=== PATIENT | female | born 1965 | race Caucasian/White ===

== ENCOUNTER 2017-07-25 15:35 | Outpatient (CLI) | payer MEDICARE, MEDICAID, SELFPAY ==
[2017-07-25 16:05] VITALS: BP 148/67; PULSE 64; RESP 18; TEMP 36.4; O2SAT 96
[2017-07-25 16:08] VITALS: BMI 28.7
[2017-07-25 16:35] VITALS: BP 138/62; PULSE 65; RESP 18; TEMP 36.4; O2SAT 95
== END 2017-07-25 16:40 | disposition home or self-care (01) ==
LOC: INF 15:38
PROVIDERS: PCP Family Medicine; Visit Provider Family Medicine
DX: R51 Headache (principal)
CPT/HCPCS: 96372

== ENCOUNTER 2017-08-15 20:25 | Emergency (ER) | payer MEDICARE, MEDICAID, SELFPAY ==
[2017-08-15 20:28] VITALS: BP 160/92; PULSE 84; RESP 16; TEMP 36.8; O2SAT 98; BMI 27.8
--- NOTE | 2017-08-15 20:47 | HMH.EDHA ---
ED Disposition Clinical Impression: Migraine Qualifiers: Migraine type: with aura Status migrainosus presence: without status migrainosus Intractability: not intractable Qualified Code(s): G43.109 - Migraine with aura, not intractable, without status migrainosus Disposition: Home, Self-Care Condition on Discharge: Good Instructions: Migraine -- Adult Additional Instructions: call pcp in am Referrals: Vasu Gutierres MD [Primary Care Provider] - - Critical Care Critical Care Time: No Attestation: On 08/15/17, the high probability of a clinically significant, sudden or life threatening deterioration of the following system(s) required my full and direct attention, intervention and personal management. The time I documented below is in addition to time spent performing reported procedures but includes the following listed in this critical care notation. Medical Decision Making - Medical Records Medical records reviewed: Yes: I reviewed the patient's medical records. Vital Signs: 08/15/17 20:28 Temperature 98.3 F Temperature Source Oral Pulse Rate [Left Brachial] 84 Respiratory Rate 16 Blood Pressure [Left Arm] 160/92 Blood Pressure Mean [Left Arm] 114 Blood Pressure Source [Left Arm] Automatic Cuff Blood Pressure Position [Left Arm] Sitting 02 Sat by Pulse Oximetry 98 Oxygen Delivery Method Room Air - Corey Inquiry Pt receiving controlled substance: No Headache HPI - General Chief Complaint: Headache Stated Complaint: Migraine Time Seen by Provider: 08/15/17 20:47 Mode of Arrival: Ambulatory Source of Information: Patient, Medical Record Limitations: No Limitations Description of Symptoms (Recalled from ER Triage Doc. 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, TOOK TYLENOL AND MOTRIN [employer] - History of Present Illness HPI Narrative: pt with acute shen similiar to prev shen - no focal changes Complaint: migraine Onset (ago): hour(s) Onset description: gradual Location: diffuse Severity: similar to previous episodes Quality: similar to previous headaches - Related Data Home Medications Medication Instructions Recorded Confirmed ALPRAZolam [Alprazolam Xr 0.5mg 0.5 mg PO TIDP PRN 07/25/17 07/25/17 Tab] ARIPiprazole [Aripiprazole] 5 mg PO HS 07/25/17 07/25/17 Albuterol Sulfate [Proair Hfa 2 puffs IH Q6HP PRN 07/25/17 07/25/17 90mcg/puff Inh] Amlodipine Besylate [Amlodipine 10 mg PO DAILY 07/25/17 07/25/17 10mg Tab] Atenolol [Atenolol 100mg Tab] 100 mg PO DAILY 07/25/17 07/25/17 Atorvastatin Calcium [Atorvastatin 20 mg PO HS 07/25/17 07/25/17 20mg Tab] Cholecalciferol (Vitamin D3) 5,000 unit PO DAILY 07/25/17 07/25/17 [Vitamin D3] Desvenlafaxine Succinate [Pristiq] 50 mg PO HS 07/25/17 07/25/17 Furosemide [Furosemide 20mg Tab] 20 mg PO DAILYP PRN 07/25/17 07/25/17 Hydrocod/Acet 5/325 mg [[place] 1 tab PO Q8HP PRN 07/25/17 07/25/17 5/325mg tablet] Insulin NPH Hum/Reg Insulin Hm 50 units SQ BID 07/25/17 07/25/17 [Humulin 70/30 Kwikpen] Linaclotide [Linzess] 72 mcg PO DAILY 07/25/17 07/25/17 Linagliptin [Tradjenta] 5 mg PO DAILY 07/25/17 07/25/17 Lisinopril [Lisinopril 10mg Tab] 10 mg PO DAILY 07/25/17 07/25/17 Metformin HCl [Metformin 500mg 1,000 mg PO DAILY 07/25/17 07/25/17 Tablet] Pregabalin [Lyrica 100mg Cap] 100 mg PO TID 07/25/17 07/25/17 Promethazine HCl [Phenergan 25mg 25 mg PO Q6HP PRN 07/25/17 07/25/17 tab] Tizanidine HCl [Zanaflex] 4 mg PO BIDP PRN 07/25/17 07/25/17 Topiramate [Topamax 25mg tablet] 25 mg PO HS 07/25/17 07/25/17 Trazodone HCl 100 mg PO HS 07/25/17 07/25/17 Allergies Allergy/AdvReac Type Severity Reaction Status Date / Time cephalexin [CEPHALEXIN] Allergy Intermediate I-ITCHING Verified 07/25/17 17:22 levofloxacin [From LEVAQUIN] Allergy Intermediate I-RASH Verified 07/25/17 17:22 Penicillins [PENICILLINS] Allergy Intermediate I-RASH, Verified 07/25/17 17:24 VOMITING Quinolones [QUINOLONES] Allergy Intermediate I-RASH Verified
--- NOTE | 2017-08-15 20:51 | ED_ITS ---
ED Disposition Clinical Impression: Migraine Qualifiers: Migraine type: with aura Status migrainosus presence: without status migrainosus Intractability: not intractable Qualified Code(s): G43.109 - Migraine with aura, not intractable, without status migrainosus Disposition: Home, Self-Care Condition on Discharge: Good Instructions: Migraine -- Adult Additional Instructions: call pcp in am Referrals: Vasu Gutierres MD [Primary Care Provider] - - Critical Care Critical Care Time: No Attestation: On 08/15/17, the high probability of a clinically significant, sudden or life threatening deterioration of the following system(s) required my full and direct attention, intervention and personal management. The time I documented below is in addition to time spent performing reported procedures but includes the following listed in this critical care notation. Medical Decision Making - Medical Records Medical records reviewed: Yes: I reviewed the patient's medical records. Vital Signs: 08/15/17 20:28 Temperature 98.3 F Temperature Source Oral Pulse Rate [Left Brachial] 84 Respiratory Rate 16 Blood Pressure [Left Arm] 160/92 Blood Pressure Mean [Left Arm] 114 Blood Pressure Source [Left Arm] Automatic Cuff Blood Pressure Position [Left Arm] Sitting 02 Sat by Pulse Oximetry 98 Oxygen Delivery Method Room Air - Corey Inquiry Pt receiving controlled substance: No Headache HPI - General Chief Complaint: Headache Stated Complaint: Migraine Time Seen by Provider: 08/15/17 20:47 Mode of Arrival: Ambulatory Source of Information: Patient, Medical Record Limitations: No Limitations Description of Symptoms (Recalled from ER Triage Doc. 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 HPI Narrative: pt with acute shen similiar to prev shen - no focal changes Complaint: migraine Onset (ago): hour(s) Onset description: gradual Location: diffuse Severity: similar to previous episodes Quality: similar to previous headaches - Related Data Home Medications Medication Instructions Recorded Confirmed ALPRAZolam [Alprazolam Xr 0.5mg 0.5 mg PO TIDP PRN 07/25/17 07/25/17 Tab] ARIPiprazole [Aripiprazole] 5 mg PO HS 07/25/17 07/25/17 Albuterol Sulfate [Proair Hfa 2 puffs IH Q6HP PRN 07/25/17 07/25/17 90mcg/puff Inh] Amlodipine Besylate [Amlodipine 10 mg PO DAILY 07/25/17 07/25/17 10mg Tab] Atenolol [Atenolol 100mg Tab] 100 mg PO DAILY 07/25/17 07/25/17 Atorvastatin Calcium [Atorvastatin 20 mg PO HS 07/25/17 07/25/17 20mg Tab] Cholecalciferol (Vitamin D3) 5,000 unit PO DAILY 07/25/17 07/25/17 [Vitamin D3] Desvenlafaxine Succinate [Pristiq] 50 mg PO HS 07/25/17 07/25/17 Furosemide [Furosemide 20mg Tab] 20 mg PO DAILYP PRN 07/25/17 07/25/17 Hydrocod/Acet 5/325 mg [[place] 1 tab PO Q8HP PRN 07/25/17 07/25/17 5/325mg tablet] Insulin NPH Hum/Reg Insulin Hm 50 units SQ BID 07/25/17 07/25/17 [Humulin 70/30 Kwikpen] Linaclotide [Linzess] 72 mcg PO DAILY 07/25/17 07/25/17 Linagliptin [Tradjenta] 5 mg PO DAILY 07/25/17 07/25/17 Lisinopril [Lisinopril 10mg Tab] 10 mg PO DAILY 07/25/17 07/25/17 Metformin HCl [Metformin 500mg 1,000 mg PO DAILY 07/25/17 07/25/17 Tablet] Pregabalin [Lyrica 100mg Cap] 1
== END 2017-08-15 21:03 | disposition home or self-care (01) ==
PROVIDERS: Emergency Provider Emergency Medicine; Family Provider Family Medicine; PCP Family Medicine
DX: G43.109 Migraine with aura, not intractable, without status migrainosus (principal); I10 Essential (primary) hypertension; E78.5 Hyperlipidemia, unspecified; Z79.899 Other long term (current) drug therapy; Z88.0 Allergy status to penicillin; Z88.8 Allergy status to other drugs, medicaments and biological substances; Z88.2 Allergy status to sulfonamides
CPT/HCPCS: 96372; 99282

== ENCOUNTER 2017-08-22 15:38 | Outpatient (CLI) | payer MEDICARE, MEDICAID, SELFPAY ==
[2017-08-22 16:15] VITALS: BP 134/81; PULSE 68; RESP 20; TEMP 36.4; O2SAT 96
== END 2017-08-22 16:45 | disposition home or self-care (01) ==
LOC: INF 15:39
PROVIDERS: PCP Family Medicine; Visit Provider Family Medicine
DX: G43.C1 Periodic headache syndromes in child or adult, intractable (principal)
CPT/HCPCS: 96372; J0595

== ENCOUNTER 2017-09-11 14:13 | Outpatient (CLI) | payer MEDICARE, MEDICAID, SELFPAY ==
[2017-09-11 14:26] VITALS: RESP 18
[2017-09-11 14:27] VITALS: BP 137/86; PULSE 74; RESP 18; O2SAT 97
[2017-09-11 14:50] VITALS: BP 119/72; PULSE 78; RESP 18; O2SAT 97
== END 2017-09-11 14:50 | disposition home or self-care (01) ==
LOC: INF 14:14
PROVIDERS: PCP Family Medicine; Visit Provider Family Medicine
DX: G43.C1 Periodic headache syndromes in child or adult, intractable (principal)
CPT/HCPCS: 96372; J0595

== ENCOUNTER → 2017-09-18 12:11 | Outpatient (CLI) | payer MEDICARE, MEDICAID, SELFPAY ==
--- NOTE | 2017-09-18 | CA_ITS ---
PROCEDURE: 2-D M-mode and color Doppler study INDICATIONS FOR THE TEST: Chest pain COPD Heart Murmur Tobacco Smoking Palpitationsx Fatiguex Syncope Edemax HypertensionxDiabetes Mellitusx Rheumatic Fever [place] ObesityxHyperlipidemiax Family History HD Additional History PATIENT INFORMATION HEIGHT: 5'6'' WEIGHT: 185 GENDER: Female B/P: 124/77 2-D/M-MODE INTERPRETATION: 2-D MEASUREMENTS OBSERVED VALUES IN CMS Right Ventricular Dimension (RVDd) 2.2 Interventricular Septum (Thickness)(IVsd) 1.2 Left Ventricular Internal Dimensions(LVIDd) 4.3 Left Ventricular Posterior Wall (Thickness)(LVPWd) 1.3 Aortic Root 3.1 Aortic Cusp Separation 1.9 Left Atrial Dimensions (LAD) 3.8 2D 1. Left atrium is mildly enlarged, left ventricle is normal size, there is mild concentric left ventricular hypertrophy, visually estimated ejection fraction 55% with no obvious regional wall motion abnormality. 2. The right atrium and right ventricle are relatively normal size and function. 3. The aortic valve is minimally thickened and fibrosed. 4. The mitral and tricuspid valve leaflets are minimally thickened. 5. The pulmonic valve is poorly visualized. 6. No significant pericardial effusion noted. DOPPLER INTERROGATION: Doppler interrogation of the aortic, mitral and tricuspid valvular presence of mild aortic, mild mitral and tricuspid regurgitation, tricuspid regurgitant jet velocity insufficient for calculation of the right ventricular systolic pressure, grade 1 diastolic dysfunction seen with tissue Doppler evidence of raised left atrial pressure. CONCLUSION: 1. Mildly enlarged left atrium, normal left ventricular size, mild concentric left ventricular hypertrophy, visually estimated ejection fraction 55% with no obvious regional wall motion abnormality, grade 1 diastolic dysfunction seen with tissue Doppler evidence of raised left atrial pressure. 2. Mild aortic, mild mitral and tricuspid regurgitation 3. No significant pericardial effusion
--- NOTE | 2017-09-18 | CI_ITS ---
Cerebrovascular Exam Indications: 781.94 Facial weakness. 434.91 Cerebral artery occlusion unspecified with cerebral infarction. IMPRESSIONS 1. The bilateral vertebral arteries are patent with normal antegrade flow. 2. The bilateral subclavian arteries reveal no evidence of significant stenosis. 3. Study suggests less than 20% stenosis involving the right internal carotid artery and the left internal carotid artery. 4. Incidental findings: There are bilateral complexthyroid nodules 1.6 X 1.4 cmon the right and 1.4 X 1.3 cm on the left side. Suggest dedicated thyroid ultrasound Carotid duplex study. Complete study and Doppler flow study including spectral analysis, color and nieves scale imaging. Height: Height: 167.6cm. Height: 66in. Weight: Weight: 83.9kg. Weight: 184.6lb. Body mass index: BMI: 29.9kg/m^2. Body surface area: BSA: 2m^2. Location: Vascular laboratory. Patient status: Outpatient. Tables: Arterial flow: + +---------+---------+ Location V sys V ed + +---------+---------+ Right CCA - proximal -73.3cm/s -24.8cm/s + +---------+---------+ Right CCA - distal -83.3cm/s -34.2cm/s + +---------+---------+ Right ECA -109cm/s -27.6cm/s + +---------+---------+ Right ICA - proximal -78.3cm/s -36.4cm/s + +---------+---------+ Right ICA - mid -104cm/s -51.3cm/s + +---------+---------+ Right ICA - distal -80cm/s -35.8cm/s + +---------+---------+ Right vertebral 59.7cm/s 25.1cm/s + +---------+---------+ Left CCA - proximal 80cm/s 25.4cm/s + +---------+---------+ Left CCA - distal -77.2cm/s -32.5cm/s + +---------+---------+ Left ECA -190cm/s -44.2cm/s + +---------+---------+ Left ICA - proximal -57.3cm/s -27cm/s + +---------+---------+ Left ICA - mid -110cm/s -46.3cm/s + +---------+---------+ Left ICA - distal -48.7cm/s -21.6cm/s + +---------+---------+ Left vertebral 40.1cm/s 14.6cm/s + +---------+---------+ (Report amended ) Electronically signed by: Tom Beaulieu [id number]
[2017-09-18 15:13] LABS: Alanine Aminotransferase 38 U/L (12-78); Albumin Level 3.7 gm/dL (3.4-5.0); Albumin/Globulin Ratio 1.1 (1.1-1.8); Alkaline Phosphatase 156 U/L (46-116); Anion Gap 16.6 mEq/L (5-15); Aspartate Amino Transferase 12 U/L (15-37); Bilirubin,Total 0.4 mg/dL (0.2-1.0); Blood Urea Nitrogen 18 mg/dL (7-18); Calcium 9.3 mg/dL (8.5-10.1); Carbon Dioxide 24 mmol/L (21.0-32.0); Chloride 102 mmol/L (98-107); Chol/HDL Ratio 2.9 (1-3.5); Cholesterol 161 mg/dL (140-200); Creatinine,Serum 1.03 mg/dL (0.55-1.02); Estimated Glomerular Filt Rate 56 ml/min (>60); GFR (African American) 68 ML/MIN (>60); Globulin 3.5 gm/dl (1.3-3.2); Glucose 283 mg/dL (74-106); HDL Cholesterol 56 mg/dL (29-89); LDL Cholesterol 69 mg/dL (0-130); Potassium 4.6 mmoL/L (3.5-5.1); Sodium 138 mmol/L (136-145); Thyroid Stimulating Hormone 0.94 uIU/ml (0.358-3.740); Total Protein,Serum 7.2 gm/dL (6.4-8.2); Triglycerides 178 mg/dL (30-200); VLDL Cholesterol 36 mg/dL (0-40)
[2017-09-18 16:47] LABS: Hemoglobin A1C 11.5 % (0.0-7.0)
[2017-09-19 11:39] LABS: Vitamin B12 411 pg/mL (232-1245)
== END ==
PROVIDERS: Family Provider Family Medicine; PCP Family Medicine; Visit Provider Specialist
DX: E11.8 Type 2 diabetes mellitus with unspecified complications (principal); R51 Headache; I63.9 Cerebral infarction, unspecified; R53.1 Weakness; R25.1 Tremor, unspecified; R20.0 Anesthesia of skin; R47.9 Unspecified speech disturbances; R00.2 Palpitations; R29.810 Facial weakness
CPT/HCPCS: 36415; 80053; 80061; 82607; 82746; 83036; 84443; 93005; 93225; 93226; 93306; 93880

== ENCOUNTER 2017-09-26 14:24 | Outpatient (CLI) | payer MEDICARE, MEDICAID, SELFPAY ==
[2017-09-26 15:05] VITALS: BP 130/89; PULSE 66; RESP 18; TEMP 36.6
[2017-09-26 15:20] VITALS: BP 141/80; PULSE 62; RESP 16
[2017-09-26 15:35] VITALS: BP 148/85; PULSE 64; RESP 16
--- NOTE | 2017-09-26 16:15 | PC.NURSE ---
1540 - PT STILL RATING PAIN 9/10 AFTER RECEIVING STADOL 3MG AND PHENERGAN 50MG IM AT 1505. REQUESTING MORE MED. SPOKE WITH DR PEREZ'TS NURSE, SAMMY, AND SHE AGREED TO TALK WITH HIM AND CALL BACK.
--- NOTE | 2017-09-26 16:21 | PC.NURSE ---
3528 - SPOKE WITH PT REGARDING NEW ORDER FOR DEXAMETHASONE 4MG IM AND SHE STATED THAT IT WILL NOT HELP WITH HER PAIN AND WOULD ELEVATED HER BLOOD SUGAR. STATED THAT SHE DID NOT WANT INJECTION. PT LEFT WITHOUT FURTHER TREATMENT. CONTACTED DR DSOUZA'S NURSE, MAYA, AND LET HER KNOW THAT PT LEFT AND REFUSED DEXAMETHASONE.
== END 2017-09-26 16:10 | disposition home or self-care (01) ==
LOC: INF 14:25
PROVIDERS: PCP Family Medicine; Visit Provider Family Medicine
DX: G43.C1 Periodic headache syndromes in child or adult, intractable (principal)
CPT/HCPCS: 96372; J0595

== ENCOUNTER → 2017-09-29 13:26 | Outpatient (CLI) | payer MEDICARE, MEDICAID, SELFPAY ==
--- NOTE | 2017-09-29 13:35 | MR_ITS ---
MR head/brain wo con Ordering Physician: Mira Dolan MD Patient Age: 52 years: Female HISTORY: Numbness at the right arm right hand. qRight leg is better in improved symptoms a past 6 months patient states she had her last brain surgery 6 months ago and symptoms of been there since surgery. Has had multiple brain surgeries for a mass. Patient cannot use right hand swelling right arm and hand. TECHNIQUE: Noncontrast only MR brain. No contrast requested or utilized. Multiplanar FLAIR, T1, T2 weighted images along with axial diffusion/ADC imaging performed on 1.5 T. Siemens, MRI. . COMPARISON :February 2017 MRI brain & February [address] head March. FINDINGS Cerebral hemispheres No significant change since the prior February 2017 studies Patient has had a previous craniotomy with evident postsurgical changes in the overlying skull, scalp are again noted & stable. 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 Then With subsequent procedures Again on FLAIR images we stable encephalomalacia on along the sulcus at mid left cerebral hemisphere. Increased FLAIR and T2 signal along the margins of this sulcus.. This appears to be central sulcus or possibly the sulcus just anterior to central sulcus.. (however when compared back to 2014 studies there is slight additional signal about this sulcus but it is unchanged today versus most recent 2017 MRI). Signal changes along the sulcus is best seen on axial slice 17-22 on today's study and also nicely seen on the coronal flair image 13... This Gliosis &/Encephalomalacia suggested along margins, and deep to the sulcus again seen extending down to the body of left lateral ventricle as best seen on coronal image.. . Deep to this area Stable tiny 3.5 mm pinpoint fluid area of signal area with mild gliosis at posterior superior left basal ganglia towards/coronal radiata, likely reflecting a small vessel ischemic focus and likely small lacunar axial slice 60 . At the right cerebral hemisphere there is a stable single tiny pinpoint deep white matter high signal foci superior to the ventricles on axial flair image 21. Also a similar and point tiny high signal focus at the subcortical white matter at the right frontal lobe on axial image 16 is stable. On these reflect tiny small vessel deep white matter ischemic foci Posterior fossa. Patient also has a suboccipital craniotomy just beginning at midline extending slightly to the right associated skull defect best appreciated on prior CT studies. Since the previous February 2017 MR there is now appears to be focal shallow encephalomalacia and slight volume loss along inferior margin of the right cerebellar hemisphere. Best seen on Sagittal T2 weighted image 10-12, axial slice 6.. Initially question could be fluid overlying the cerebellum inferiorly but it appears be more likely some volume loss and encephalomalacia based on the sagittal imaging. Also note there is slight increased FLAIR signal here suggesting some gliosis rather than this fluid here,. Again these features are a change from February 2017 MRI. I would note matches the low-density area seen on March 2017 CT studies, thus this change apparently occurring between February and March 2017. This encephalomalacia or an high T2 signal area is a slightly lateral to the majority the craniotomy defect as seen on on prior CT, as well as today's study.. The ventricles appear stable. The midbrain damion unremarkable. Generous prepontine cistern. Stable. Paranasal sinuses orbits, mastoid air cells unremarkable. Sella unremarkable. Cranial cervical junction satisfactory. CP angles clear Diffusion images show no acute infarct or ischemia. There are scattered mildly pr
== END ==
PROVIDERS: Family Provider Family Medicine; PCP Family Medicine; Visit Provider Specialist
DX: I63.9 Cerebral infarction, unspecified (principal); R53.1 Weakness; R20.0 Anesthesia of skin; R47.9 Unspecified speech disturbances; R25.1 Tremor, unspecified; R51 Headache
CPT/HCPCS: 70551

== ENCOUNTER 2017-10-10 11:37 | Outpatient (CLI) | payer MEDICARE, MEDICAID, SELFPAY ==
[2017-10-10 12:30] VITALS: BP 146/84; PULSE 68; RESP 18; TEMP 37.1; O2SAT 96
[2017-10-10 13:00] VITALS: BP 121/74; PULSE 68; RESP 20; TEMP 37.1; O2SAT 96
== END 2017-10-10 13:25 | disposition home or self-care (01) ==
LOC: INF 11:39
PROVIDERS: PCP Family Medicine; Visit Provider Family Medicine
DX: G43.C1 Periodic headache syndromes in child or adult, intractable (principal)
CPT/HCPCS: 96372; J0595

== ENCOUNTER → 2017-10-14 14:57 | Outpatient (CLI) | payer MEDICARE, MEDICAID, SELFPAY ==
--- NOTE | 2017-10-14 15:00 | US_ITS ---
US thyroid HISTORY: ITS.REASON: THYROID CYST ORDERING PHYSICIAN: Vasu Gutierres MD PATIENT AGE: 52 years COMPARISON: None FINDINGS: The right lobe is 4.2 x 2.3 x 2.8 cm. There are multiple mixed echogenic nodules on the right. The largest nodule is in the upper pole and measures 2 x 1.2 cm. The left lobe is 4.9 x 2 x 1.9 cm and contains multiple nodules. There is an isoechoic nodule in the upper pole at 1.3 x 1 cm. A well-circumscribed mixed the choroid nodules present in the midpole at 1.9 x 1.7 cm. There is a 1.8 x 0.8 cm mixed nodule in the lower pole. This could be due to a parathyroid gland. The isthmus is somewhat prominent at 6 mm with a 5 mm hypoechoic nodule in the left aspect of the isthmus. IMPRESSION: Multinodular goiter with bilateral thyroid nodules the largest in the upper pole on the right at 2 x 1.2 cm.
== END ==
LOC: RAD 14:57
PROVIDERS: Family Provider Family Medicine; PCP Family Medicine; Visit Provider Family Medicine
DX: E04.1 Nontoxic single thyroid nodule (principal)
CPT/HCPCS: 76536

== ENCOUNTER 2017-10-14 15:42 | Outpatient (RCR) | payer MEDICARE, MEDICAID, SELFPAY ==
--- NOTE | 2017-10-14 16:42 | HMH.SLDYSPHA ---
Speech & Language Evaluation Speech/Language Dysphagia Evaluation Start: 10/14/17 16:37 Freq: ONCE Status: Active Protocol: Document 10/14/17 16:37 CRICKET (Rec: 10/14/17 16:42 CRICKET [id number]) Dysphagia Assess/Goals/Plan Assessment Date of Evaluation: 10/14/17 Evaluation Type Initial Certification Assessment/Problems Dysphagia Does Patient Qualify for Service Yes Qualify/Failure Comment Patient did not exhibit coughing during bedside but further testing is warranted Recommendations PHYSICIAN CERTIFICATION: The specified therapy services are required, authorized, and reviewed every 30 days. Diet Recommendations Normal Liquid Type Recommendations Normal/Thin SL Swallow Guidelines Alt bite w/sip thru meal Dysphagia Swallow Precautions/Strategies Chin Tuck Small Bites and Sips Alternate Liquids/Solids Additional Consults Recommended Other Comment Modified Barium Swallow will determine goals needed for therapy Plan Pt/Guardian verbally ack understanding Yes of dx/prognosis/goals G -code Required Yes G-CODES ST Current Status [id number] ST Current Status Modifier CI-At least 1% but less than 20% impaired, limited or restricted ST Goal Status [id number] ST Goal Status Modifier CI-At least 1% but less than 20% impaired, limited or restricted Speech & Language HPI History Present Illness Description of Patient Problem Patient reports difficulty with swallowing and word finding since brain surgery in march 2017. General Information General Current Food Consistancy Regular Thin Liquids Denture Type Full- Upper & Lower Facial Symmetry Asymmetrical Patient Orientation Person Place Time Ability to Follow Directions Good Oral Expression Ability Moderate Impairment Dysphagia:Food Presentation Evaluation Food Type Chopped Regular Liquid Dysphagia Evaluation Summary Ms. Maravilla reports difficulty with swallowing all foods and liquids. She reports choking on saliva. She exhibits difficulty with word findin
== END 2017-10-14 15:43 | disposition home or self-care (01) ==
LOC: ST 15:42
PROVIDERS: Family Provider Family Medicine; PCP Family Medicine; Visit Provider Family Medicine
DX: R13.12 Dysphagia, oropharyngeal phase (principal)
CPT/HCPCS: 76536; 92610

== ENCOUNTER → 2017-10-20 11:04 | Outpatient (POV) | payer MEDICARE, MEDICAID, SELFPAY | PROVIDERS: Family Provider Family Medicine; PCP Family Medicine; Visit Provider Specialist | DX: R20.0 Anesthesia of skin (principal); R53.1 Weakness; I63.9 Cerebral infarction, unspecified | CPT/HCPCS: 95886; 95911 ==

== ENCOUNTER 2017-10-24 12:44 | Outpatient (CLI) | payer MEDICARE, MEDICAID, SELFPAY ==
[2017-10-24 13:15] VITALS: BP 167/71; PULSE 71; RESP 18; TEMP 36.6; O2SAT 96
[2017-10-24 13:50] VITALS: BP 138/76; PULSE 69; RESP 18; O2SAT 95
== END 2017-10-24 13:50 | disposition home or self-care (01) ==
LOC: INF 12:46
PROVIDERS: PCP Family Medicine; Visit Provider Family Medicine
DX: G43.C1 Periodic headache syndromes in child or adult, intractable (principal)
CPT/HCPCS: 96372; J0595

== ENCOUNTER → 2017-10-29 12:59 | Outpatient (CLI) | payer MEDICARE, MEDICAID, SELFPAY ==
--- NOTE | 2017-10-29 13:02 | FL_ITS ---
FL barium swallow modified: 10/29/2017 1:02 PM CLINICAL HISTORY: Dysphasia ORDERING PHYSICIAN: Vasu Gutierres MD PATIENT AGE: 52 years COMPARISON: TECHNIQUE: Patient administered varying consistencies of barium contrast, while viewed in lateral position under real-time fluoroscopy with cine recording. FLUOROSCOPY TIME: 2 minutes and 44 seconds The study was performed in conjunction with speech pathologist. Please see that report & recommendations. FINDINGS: Patient was given varying consistencies of barium. There was no evidence of vestibular penetration or tracheal aspiration.. IMPRESSION: Unremarkable modified barium swallow Please see speech pathologist report and recommendations.
--- NOTE | 2017-10-29 14:11 | HMH.SLMBS2 ---
Speech & Language Evaluation Speech/Language Mod Barium Swallow Start: 10/29/17 13:49 Freq: once Status: Complete Protocol: Document 10/29/17 13:49 CRICKET (Rec: 10/29/17 14:11 CRICKET [id number]) [facility] [place] Recommendations Diet Dietary Recommendations Regular Thin Liquids Treatment/Strategies Treatment Recommendation Oral Motor Exercises Chewing Exercises Mod Barium Swallow Impressions Summary and Impressions Oral Phase Impression Minimal Impairment Oral Phase Summary Ms. Maravilla was given the following consistencies: thins via open cup and straw, pudding, pureed, mechanical soft, regular, and pill with thin wash. Ms. Maravilla exhibited decreased rotary mastication. Pharyngeal Phase Impression Minimal Impairment Pharyngeal Phase Summary Ms. Maravilla exhibited flash penetration with thin liquid wash after regular consistency due to large volume of thins. No aspiration noted. Speech/Language MBS Assessment/Goals/Plan Assessment Date of Evaluation: 10/29/17 Evaluation Type Initial Certification Assessment/Problems Dysphagia Does Patient Qualify for Service Yes Qualify/Failure Comment Decreased mastication and flash penetration Plan Pt/Guardian verbally ack understanding Yes of dx/prognosis/goals G -code Required Yes G-CODES ST Current Status [id number] ST Current Status Modifier CI-At least 1% but less than 20% impaired, limited or restricted ST Goal Status [id number] ST Goal Status Modifier CI-At least 1% but less than 20% impaired, limited or restricted Mod Barium Swallow Setup Exam Setup Radiologist Tom Beaulieu Level of Consciousness Awake Alert Appropriate Follows Commands Position (degrees) 90 Mod Barium Swallow-Lat View Textures Lateral View Food Presentation Thin Liquid via Cup Thin Liquid via Straw Pureed Food- Thin Ground Food- Chopped Barium Tablet Regular Food Pudding Oral Phase
== END ==
PROVIDERS: PCP Family Medicine; Visit Provider Family Medicine
DX: R13.12 Dysphagia, oropharyngeal phase (principal)
CPT/HCPCS: 70371; 92611

== ENCOUNTER 2017-11-07 11:14 | Outpatient (CLI) | payer MEDICARE, MEDICAID, SELFPAY ==
[2017-11-07 12:15] VITALS: BP 122/7; PULSE 68; RESP 20; TEMP 36.4; O2SAT 96
[2017-11-07 12:45] VITALS: BP 122/70; PULSE 68; RESP 20; TEMP 36.4; O2SAT 96
== END 2017-11-07 12:45 | disposition home or self-care (01) ==
LOC: INF 11:15
PROVIDERS: PCP Family Medicine; Visit Provider Family Medicine
DX: G43.C1 Periodic headache syndromes in child or adult, intractable (principal)
CPT/HCPCS: 96372; J0595

== ENCOUNTER 2017-11-27 14:13 | Outpatient (CLI) | payer MEDICARE, MEDICAID, SELFPAY ==
[2017-11-27 14:21] VITALS: BP 137/76; PULSE 61; RESP 18; TEMP 36.9; O2SAT 96; BMI 29.9
[2017-11-27 14:45] VITALS: BP 139/86; PULSE 61; RESP 18; TEMP 36.7; O2SAT 96
[2017-11-27 14:57] VITALS: RESP 18
== END 2017-11-27 15:00 | disposition home or self-care (01) ==
LOC: INF 14:15
PROVIDERS: PCP Family Medicine; Visit Provider Family Medicine
DX: G43.C1 Periodic headache syndromes in child or adult, intractable (principal)
CPT/HCPCS: 96372; J0595

== ENCOUNTER 2017-12-12 15:28 | Outpatient (CLI) | payer MEDICARE, MEDICAID, SELFPAY ==
[2017-12-12 15:28] VITALS: BP 139/73; PULSE 56; RESP 18; TEMP 36.8; O2SAT 99; BMI 29.9
[2017-12-12 16:14] VITALS: BP 113/81; PULSE 57; RESP 18; TEMP 36.8; O2SAT 99
[2017-12-12 16:26] VITALS: BP 113/81; PULSE 57; RESP 18; O2SAT 99
== END 2017-12-12 16:20 | disposition home or self-care (01) ==
LOC: INF 15:29
PROVIDERS: PCP Family Medicine; Visit Provider Family Medicine
DX: G43.909 Migraine, unspecified, not intractable, without status migrainosus (principal)
CPT/HCPCS: G0463; J0595

== ENCOUNTER 2017-12-30 17:06 | Outpatient (CLI) | payer MEDICARE, MEDICAID, SELFPAY ==
[2017-12-30 17:23] VITALS: BP 144/76; PULSE 69; RESP 16; TEMP 36.4; O2SAT 99
[2017-12-30 17:35] VITALS: BP 132/74; PULSE 64; RESP 16; O2SAT 98
== END 2017-12-30 17:37 | disposition home or self-care (01) ==
LOC: INF 17:09
PROVIDERS: PCP Family Medicine; Visit Provider Family Medicine
DX: G43.C1 Periodic headache syndromes in child or adult, intractable (principal)
CPT/HCPCS: 96372; J0595

== ENCOUNTER 2018-02-13 15:10 | Outpatient (CLI) | payer MEDICARE, MEDICAID, SELFPAY ==
[2018-02-13 15:27] VITALS: BP 125/70; PULSE 66; RESP 20; TEMP 37.1; O2SAT 96
[2018-02-13 15:55] VITALS: BP 125/74; PULSE 66; RESP 20; TEMP 36.9; O2SAT 96
== END 2018-02-13 16:01 | disposition home or self-care (01) ==
LOC: INF 15:24
PROVIDERS: Family Provider Family Medicine; PCP Family Medicine; Visit Provider Family Medicine
DX: G43.C1 Periodic headache syndromes in child or adult, intractable (principal)
CPT/HCPCS: 96372; J0595

== ENCOUNTER 2018-03-06 15:26 | Outpatient (CLI) | payer MEDICARE, MEDICAID, SELFPAY ==
[2018-03-06 15:34] VITALS: BMI 27.4
[2018-03-06 15:36] VITALS: BP 127/71; PULSE 54; RESP 18; TEMP 36.1; O2SAT 98
[2018-03-06 15:57] VITALS: BP 127/71; PULSE 54; RESP 18; TEMP 36.1; O2SAT 98
== END 2018-03-06 16:05 | disposition home or self-care (01) ==
LOC: INF 15:27
PROVIDERS: PCP Family Medicine; Visit Provider Family Medicine
DX: G43.C1 Periodic headache syndromes in child or adult, intractable (principal)
CPT/HCPCS: 96372

== ENCOUNTER 2018-04-13 15:20 | Outpatient (CLI) | payer MEDICARE, MEDICAID, SELFPAY ==
[2018-04-13 15:58] VITALS: RESP 18
[2018-04-13 16:00] VITALS: BP 132/78; PULSE 66; RESP 18; RESP 20; TEMP 36.9; O2SAT 96
[2018-04-13 16:25] VITALS: BP 142/74; PULSE 68; RESP 20; TEMP 36.9; O2SAT 96
== END 2018-04-13 16:25 | disposition home or self-care (01) ==
LOC: INF 15:22
PROVIDERS: PCP Family Medicine; Visit Provider Family Medicine
DX: G43.909 Migraine, unspecified, not intractable, without status migrainosus (principal)
CPT/HCPCS: 96372; J0595

== ENCOUNTER 2018-05-05 12:47 | Outpatient (CLI) | payer MEDICARE, MEDICAID, SELFPAY ==
[2018-05-05 13:15] VITALS: BP 188/102; PULSE 68; RESP 20; TEMP 36.9; O2SAT 96
[2018-05-05 13:45] VITALS: BP 173/88; PULSE 58; RESP 20; TEMP 36.9; O2SAT 96
== END 2018-05-05 13:20 | disposition home or self-care (01) ==
LOC: INF 12:49
PROVIDERS: PCP Family Medicine; Visit Provider Family Medicine
DX: G43.C1 Periodic headache syndromes in child or adult, intractable (principal)
CPT/HCPCS: 96372; J0595

== ENCOUNTER 2018-05-19 12:11 | Outpatient (CLI) | payer MEDICARE, MEDICAID, SELFPAY ==
[2018-05-19 13:10] VITALS: BP 166/86; PULSE 71; RESP 18
[2018-05-19 13:35] VITALS: BP 103/65; PULSE 64; RESP 16; O2SAT 95
== END 2018-05-19 13:35 | disposition home or self-care (01) ==
LOC: INF 12:12
PROVIDERS: PCP Family Medicine; Visit Provider Family Medicine
DX: G43.C1 Periodic headache syndromes in child or adult, intractable (principal)
CPT/HCPCS: 96401; J0595

== ENCOUNTER 2018-06-16 12:21 | Outpatient (CLI) | payer MEDICARE, MEDICAID, SELFPAY ==
[2018-06-16 13:20] VITALS: BP 138/71; PULSE 68; RESP 20; TEMP 36.9; O2SAT 98
[2018-06-16 13:55] VITALS: BP 142/74; PULSE 68; RESP 20; TEMP 36.9; O2SAT 95
== END 2018-06-16 13:50 | disposition home or self-care (01) ==
LOC: INF 12:23
PROVIDERS: PCP Family Medicine; Visit Provider Family Medicine
DX: G43.C1 Periodic headache syndromes in child or adult, intractable (principal)
CPT/HCPCS: 96372; J0595

== ENCOUNTER 2018-08-11 14:47 | Outpatient (CLI) | payer MEDICARE, MEDICAID, SELFPAY ==
[2018-08-11 15:00] VITALS: BP 128/74; PULSE 69; RESP 20; TEMP 36.9; O2SAT 95
[2018-08-11 15:30] VITALS: BP 112/74; PULSE 68; RESP 20; TEMP 36.9; O2SAT 95
== END 2018-08-11 15:30 | disposition home or self-care (01) ==
LOC: INF 14:48
PROVIDERS: PCP Family Medicine; Visit Provider Family Medicine
DX: G43.C1 Periodic headache syndromes in child or adult, intractable (principal)
CPT/HCPCS: 96372; J0595

== ENCOUNTER 2018-08-21 14:36 | Outpatient (CLI) | payer MEDICARE, MEDICAID, SELFPAY ==
[2018-08-21 15:00] VITALS: BP 134/82; PULSE 60; RESP 20; TEMP 36.9; O2SAT 95
[2018-08-21 15:20] VITALS: BP 134/54; PULSE 68; RESP 20; TEMP 36.9; O2SAT 95
== END 2018-08-21 15:30 | disposition home or self-care (01) ==
LOC: INF 14:39
PROVIDERS: PCP Family Medicine; Visit Provider Family Medicine
DX: G43.C1 Periodic headache syndromes in child or adult, intractable (principal)
CPT/HCPCS: 96372; J0595

== ENCOUNTER 2018-10-20 12:44 | Outpatient (CLI) | payer MEDICARE, MEDICAID, SELFPAY ==
[2018-10-20 13:45] VITALS: BP 160/89; BP 161/113; PULSE 61; RESP 16; RESP 18; O2SAT 96
== END 2018-10-20 13:45 | disposition home or self-care (01) ==
LOC: INF 12:46
PROVIDERS: Visit Provider Family Medicine
DX: G43.C1 Periodic headache syndromes in child or adult, intractable (principal)
CPT/HCPCS: 96372

== ENCOUNTER 2018-10-21 10:26 | Outpatient (CLI) | payer MEDICARE, MEDICAID, SELFPAY ==
[2018-10-21 10:40] VITALS: BP 185/99; PULSE 107; RESP 18; TEMP 36.8; O2SAT 95
[2018-10-21 11:00] VITALS: RESP 18
[2018-10-21 11:04] VITALS: BP 142/86; PULSE 103; RESP 18; TEMP 36.8; O2SAT 94
== END 2018-10-21 11:04 | disposition home or self-care (01) ==
LOC: INF 10:27
PROVIDERS: PCP Family Medicine; Visit Provider Family Medicine
DX: R51 Headache (principal)
CPT/HCPCS: 96372; J0595

== ENCOUNTER → 2018-11-06 16:42 | Outpatient (CLI) | payer MEDICARE, SELFPAY ==
--- NOTE | 2018-11-06 16:53 | XR_ITS ---
XR ankle RT min 3V, XR foot RT min 3V Ordering Physician: Vasu Gutierres MD Patient Age: 53 years: Female Ankle HISTORY: Injury multiple falls pain at ankle and foot FootHISTORY Pain at the third fifth digits of the right foot TECHNIQUE: === Right ankle 3 view Right foot 3 view COMPARISON :Left foot 3 views July 2016 RIGHT ANKLE 3 VIEW The right ankle appears intact with no fracture nor dislocation. The joint spaces well-maintained. The dome of talus intact. Hindfoot unremarkable IMPRESSION ... Right ankle intact... Negative right ankle RIGHT FOOT 3 VIEW HISTORY Pain at the third fifth digits of the right foot There is a curious slight irregular appearance at neck of the metatarsals-suspect underlying fractures involving the neck of the third, fourth and fifth meta tarsal, and possibly the second as well. I would anticipate significant pain with this pattern.Clinical correlation required to support.... Additional coned-down views may be helpful to obtain detail or if there is significant pain CT foot may need to be considered, in order to optimally delineate. IMPRESSION: Right foot 1. Irregular appearance at neck of the cerebral metatarsals: ... Suspect for recent fractures involving Neck of Metatarsal 3, 4, 5 & possibly 2nd MT as well .... Focal pain & tenderness required to confirm.. Certainly would expect significant pain here 2.. Diffuse soft tissue swelling forefoot appears to be associated. Mildred/Max Please fax to office
--- NOTE | 2018-11-06 16:53 | XR_ITS ---
XR hand LT min 3V HISTORY: Hand injury. Left hand pain. ITS.REASON: MULTIPLE FALLS; PAIN ORDERING PHYSICIAN: Vasu Gutierres MD PATIENT AGE: 53 years COMPARISON: None TECHNIQUE: PA, Oblique and Lateral Hand FINDINGS: No fracture or dislocation. No lytic or blastic change. The joint spaces are well-preserved with only borderline narrowing at the PIP joint.. No significant degenerative/arthritic changes. No definitive erosive changes evident.. The metacarpals are intact and unremarkable. These the wrist appear satisfactory. Normal relationships. There is mild demineralization slightly IMPRESSION: Negative left hand., no acute finding Joint spaces adequately maintained; with only borderline narrowing at the PIP joints
--- NOTE | 2018-11-06 16:53 | XR_ITS ---
XR thoracic spine 3V Ordering Physician: Vasu Gutierres MD Patient Age: 53 years: Female HISTORY: TECHNIQUE: AP lateral and swimmer's view thoracic spine. COMPARISON :2 view chest from 12/29/[address] cervical spine 11/03/2018 FINDINGS Note 11 well-developed thoracic ribs , with Small rudimentary 12th ribs noted on frontal projection. With this numbering of vertebral would note minor irregularity at the superior endplate of mid thoracic vertebra, T6 on today's lateral projection. I believe this same same superior endplate irregularity was seen December 2016 CXR and thus I favor it is an old feature possibly likely related to Schmorl's node type feature or old injury. Doubt recent or acute fracture. However if there should be persistent pain mid thoracic spine Consider MR to further evaluate . Dense calcified nodes subcarinal region and projecting over T7 and T6 on the frontal projection. The pedicles intact no paraspinal swelling or mass. Degenerative changes are seen at the lower cervical spine involving the facets of the lower C-spine bilaterally particularly on the right. Although difficult to visualize is seen to be normal relationships of the cervical thoracic junction region. IMPRESSION No discrete acute findings of the T-spine. There is slight undulation at the superior endplate of T6 noted but I believe this is a stable feature since prior chest film December 2016 However if there should be persistent focal pain at mid T-spine consider MRI follow-up Degenerative changes lower C-spine noted.- Mainly degenerative facet changes evident.
== END ==
LOC: RAD 16:44
PROVIDERS: PCP Family Medicine; Visit Provider Family Medicine
DX: M54.5 Low back pain (principal); M25.571 Pain in right ankle and joints of right foot; M79.642 Pain in left hand; W19.XXXA Unspecified fall, initial encounter
CPT/HCPCS: 72072; 73130; 73610; 73630

== ENCOUNTER → 2018-11-18 11:13 | Outpatient (CLI) | payer MEDICARE, SELFPAY ==
--- NOTE | 2018-11-18 11:17 | XR_ITS ---
XR foot wt bearing RT 3V HISTORY: Foot pain ITS.REASON: r/o diabetic charcot ORDERING PHYSICIAN: Jessie Duke DPM PATIENT AGE: 53 years COMPARISON: 11/06/2018 FINDINGS: Nondisplaced fractures are present at the neck of the second through fifth metatarsals similar to the previous exam. There is bandage artifact. No bony destructive process. Normal alignment. Mild flexion deformity of the toes. IMPRESSION: No change of the nondisplaced fractures of the second through fifth metatarsal necks. No bony erosive process evident
--- NOTE | 2018-11-18 11:17 | XR_ITS ---
XR foot wt bearing LT 3V HISTORY: ITS.REASON: r/o diabetic [place] ORDERING PHYSICIAN: Jessie Duke DPM PATIENT AGE: 53 years COMPARISON: None FINDINGS: No fracture or dislocation. No lytic or blastic change. There is normal mineralization.. The joint spaces are well-preserved. No significant degenerative/arthritic changes. No erosive changes evident. IMPRESSION: Negative, no acute finding
== END ==
PROVIDERS: PCP Family Medicine; Visit Provider Podiatrist
DX: T14.8XXA Other injury of unspecified body region, initial encounter (principal); S92.301A Fracture of unspecified metatarsal bone(s), right foot, initial encounter for closed fracture; R60.0 Localized edema
CPT/HCPCS: 73630

== ENCOUNTER → 2018-12-03 11:25 | Outpatient (CLI) | payer MEDICARE, SELFPAY ==
--- NOTE | 2018-12-03 11:32 | XR_ITS ---
XR foot wt bearing RT 3V HISTORY: ITS.REASON: fracture follow up ORDERING PHYSICIAN: Jessie Duke DPM PATIENT AGE: 53 years COMPARISON: 11/18/2018 FINDINGS: Healing fractures are present involving the second, third, fourth, and fifth metatarsals distally with underlying callous formation with mild lateral angulation of the distal fracture fragments of the second third and fourth metatarsals. No displacement IMPRESSION: Healing fractures second through fifth metatarsals
== END ==
PROVIDERS: PCP Family Medicine; Visit Provider Podiatrist
DX: T14.8XXA Other injury of unspecified body region, initial encounter (principal)
CPT/HCPCS: 73630

== ENCOUNTER 2019-02-26 16:00 | Outpatient (CLI) | payer MEDICARE, SELFPAY ==
[2019-02-26 16:00] VITALS: BP 189/99; PULSE 68; RESP 20; TEMP 36.9; O2SAT 95
[2019-02-26 16:27] VITALS: BP 178/90; PULSE 68; RESP 20; TEMP 36.9; O2SAT 95
== END 2019-02-26 16:33 | disposition home or self-care (01) ==
LOC: INF 16:02
PROVIDERS: PCP Family Medicine; Visit Provider Family Medicine
DX: G43.C1 Periodic headache syndromes in child or adult, intractable (principal)
CPT/HCPCS: 96372

== ENCOUNTER 2019-05-18 19:36 | Observation (INO) ==
[2019-05-18 19:51] LABS: Microscopic, Urine URINE MICROSCOPIC (MICROSCOPIC)
[2019-05-18 19:54] LABS: Basophils # 0.1 K/mm3 (0-0.2); Basophils % 0.7 % (0.1-2.0); Eosinophils # 0.1 K/mm3 (0.0-0.4); Eosinophils % 1.2 % (0.1-12.0); Hematocrit 47.1 % (37.0-47.0); Hemoglobin 15.2 g/dL (12.2-16.2); Lymphocytes # 2.7 K/mm3 (0.7-4.5); Lymphocytes % 29.6 % (10-50); Mean Corpuscular HGB Conc 32.3 g/dL (31.8-35.4); Mean Corpuscular Volume 96.8 fl (81-99); Mean Platelet Volume 8.1 fl (7.4-10.4); Monocytes # 0.4 K/mm3 (0.1-1.0); Monocytes % 3.9 % (1.7-9.3); Neutrophils # 5.8 K/mm3 (1.8-7.8); Neutrophils % 64.6 % (37.0-80.0); Platelet Count 225 K/mm3 (142-424); Red Blood Count 4.86 M/mm3 (4.20-5.40); Red Cell Distribution Width 12.2 % (11.5-17.5); White Blood Count 8.9 K/mm3 (4.8-10.8)
[2019-05-18 19:58] LABS: Appearance,Urine CLEAR (Clear); Bilirubin,Urine Negative (Negative); Blood, Urine Negative (Negative); Color,Urine YELLOW (Yellow); Glucose,Urine (UA) 3+ (Negative); Ketones,Urine Negative (Negative); Leukocyte Esterase,Urine Negative (Negative); Protein,Urine Negative (Negative); Specific Gravity, Urine <= 1.005 (1.005-1.030); Urobilinogen,Urine 0.2 EU/dl (0.2)
[2019-05-18 20:07] LABS: Alanine Aminotransferase 35 U/L (12-78); Albumin Level 3.8 gm/dL (3.4-5.0); Alkaline Phosphatase 151 U/L (46-116); Anion Gap 12.5 mEq/L (5-15); Aspartate Amino Transferase 13 U/L (15-37); Bilirubin,Total 0.5 mg/dL (0.2-1.0); Blood Urea Nitrogen 13 mg/dL (7-18); Calcium 9.7 mg/dL (8.5-10.1); Carbon Dioxide 29 mmol/L (21.0-32.0); Chloride 95 mmol/L (98-107); Globulin 3.7 gm/dl (1.3-3.2); Sodium 133 mmol/L (136-145); Total Protein,Serum 7.5 gm/dL (6.4-8.2)
[2019-05-18 20:08] LABS: Amphetamine/Metha Screen,Urine Negative ng/mL (<1000); Barbiturates Screen,Urine Negative ng/mL (<200); Benzodiazepines Screen,Urine Negative ng/mL (<200); Cannabinoid Screen,Urine Negative ng/mL (<50); Cocaine Screen,Urine Negative ng/mL (<300); Methadone Screen,Urine Negative ng/mL (<300); Opiate Screen,Urine Negative ng/mL (<300); Phencyclidine Screen,Urine Negative ng/mL (<25)
[2019-05-18 20:09] LABS: C-Reactive Protein < 0.2 mg/dL (0.0-0.9)
[2019-05-18 20:19] LABS: Bacteria,Urine Trace /lpf; WBC,Urine Occasional #/hpf (0-3)
[2019-05-18 20:22] LABS: Glucose 538 mg/dL (74-106)
[2019-05-18 20:25] LABS: Erythrocyte Sedimentation Rate 4 mm/hr (0-30)
--- NOTE | 2019-05-18 21:10 | Emergency Department Note ---
ED Disposition Clinical Impression: CVA (cerebral vascular accident) Qualifiers: CVA mechanism: unspecified Qualified Code(s): I63.9 - Cerebral infarction, unspecified Hyperglycemia due to type 2 diabetes mellitus Qualifiers: Diabetes mellitus long-term insulin use: unspecified long-term insulin use status Qualified Code(s): E11.65 - Type 2 diabetes mellitus with hyperglycemia Disposition: Admitted as Observation Condition on Discharge: Good - Critical Care Critical Care Time: No Attestation: On 05/18/19, the high probability of a clinically significant, sudden or life threatening deterioration of the following system(s) required my full and direct attention, intervention and personal management. The time I documented below is in addition to time spent performing reported procedures but includes the following listed in this critical care notation. Medical Decision Making - Medical Records Medical records reviewed: Yes: I reviewed the patient's medical records. - Corey Inquiry Pt receiving controlled substance: No Vital Signs: 05/18/19 19:41 05/18/19 21:06 Temperature 98 F Temperature Source Oral Pulse Rate [Right] 103 H 82 Respiratory Rate 18 18 Blood Pressure [Right Arm] 211/110 H 155/98 H Blood Pressure Mean [Right Arm] 143 117 Blood Pressure Source [Right Arm] Automatic Cuff Blood Pressure Position [Right Arm] Supine 02 Sat by Pulse Oximetry 99 99 Oxygen Delivery Method Room Air Room Air - Lab Data Lab results reviewed: Yes: I reviewed the patient's lab results. Lab Results 05/18/19 19:38: Urine Color Yellow, Urine Appearance Clear, Urine pH 6.0, Ur Specific [place] <= 1.005, Urine Protein Negative, Urine Glucose (UA) 3+, Urine Ketones Negative, Urine Blood Negative, Urine Nitrate Negative, Urine Bilirubin Negative, Urine Urobilinogen 0.2, Ur Leukocyte Esterase Negative, Urine WBC Occasional, Ur Squamous Epith Cells 5-10, Urine Bacteria Trace 05/18/19 19:38: WBC 8.9, RBC 4.86, Hgb 15.2, Hct 47.1 H, MCV 96.8, MCH 31.3 H, MCHC 32.3, RDW 12.2, Plt Count 225, MPV 8.1, Neut % (Auto) 64.6, Lymph % (Auto) 29.6, [place] % (Auto) 3.9, Eos % (Auto) 1.2, Baso % (Auto) 0.7, Neut # (Auto) 5.8, Lymph # (Auto) 2.7, [place] # (Auto) 0.4, Eos # (Auto) 0.1, Baso # (Auto) 0.1, ESR 4 05/18/19 19:38: Sodium 133 L, Potassium 3.5, Chloride 95 L, Carbon Dioxide 29, Anion Gap 12.5, BUN 13, Creatinine 1.16 H, Estimated Creat Clear 50, Estimated GFR 48 L, Est GFR ( Amer) 58 L, Glucose 538 H*, Calcium 9.7, Total Bilirubin 0.5, AST 13 L, ALT 35, Alkaline Phosphatase 151 H, Troponin I < 0.02, C-Reactive Protein < 0.2, Total Protein 7.5, Albumin 3.8, Globulin 3.7 H, Albumin/Globulin Ratio 1.0 L 05/18/19 19:38: Urine Opiates Screen Negative, Urine Methadone Screen Negative, Ur Barbituates Screen Negative, Ur Phencyclidine Scrn Negative, Ur Amphetamines Screen Negative, U Benzodiazepines Scrn Negative, Urine Cocaine Screen Negative, U Marijuana (THC) Screen Negative 05/18/19 19:38: Plasma/Serum Alcohol < 3 05/18/19 20:40: Lactate 1.2 Result diagrams: 05/18/19 19:38 05/18/19 19:38 Orders (Tests/Meds): ED MEDICATIONS Generic Name Dose Route Start Last Admin Trade Name Freq PRN Reason Stop Dose Admin Sodium Chloride 1,000 mls @ 999 mls/hr 05/18/19 19:45 Sod Chlor 0.9% 1000ml Bag IV 05/18/19 20:45 .Q1H1M ZANDER Discontinued Medications Generic Name Dose Route Start Last Admin Trade Name Freq PRN Reason Stop Dose Admin Insulin Human Regular 5 unit 05/18/19 21:31 05/18/19 21:49 Humulin R Insulin 100 Units/Ml 10ml Vial IVP 05/18/19 21:32 5 unit ONCE ONE Administration ORDERS Category Date Time Status CT head/brain wo con Stat Cat Scan 05/18/19 19:44 Taken XR chest 2V Stat Exams 05/18/19 19:44 Taken Blood Culture Stat Micro 05/18/19 20:40 Received ECG Request by /Nse Stat Y 05/18/19 19:44 Ordered - Radiology Data #1 Image(s): Chest Image Reviewed: Yes I reviewed the patient's radiology image Preliminary Findings: Normal/NAD - CT Data CT Scan: Head Time Received: 22:[address] Reviewed: Yes: I have viewed the radiologist's interpretation Preliminary Findings: Abnormal - ECG Data Tracing #1 Normal Sinus Rhythm: Yes Ischemic changes: non-specific ST-T wave changes - Physician Consults Physician Consulted: oniel Reason -: Admission Neuro HPI - General Chief Complaint: Weakness Stated Complaint: weakness Time Seen by Provider: 05/18/19 19:45 Mode of Arrival: Ambulatory Source of Information: Patient, Medical Record Limitations: No Limitations Description of Symptoms (Recalled from ER Triage Doc. by RN): Pt states around 2pm she began to feel weak and noticed the tingling in her right hand was worse than it normally is. Pt states she has had a CVA in the past. - History of Present Illness HPI Narrative: pt reports that at [address] tingling to rt hand and tingling rt face w/o fever/rash or trauma - hx of cva in past - she reports last cva 2 yrs ago- she has no speech or visual sx - no change in sx since started Onset (ago): hour(s) Date last observed normal: 05/18/19 Time last observed normal: 14:00 Location: right face, right arm History of same: Yes Severity: moderate Quality: tingling Context: sudden onset On Anticoagulants: No Associated symptoms: denies other symptoms Treatments Prior to Arrival: none - Related Data Home Medications: Home Medications Medication Instructions Recorded Confirmed Albuterol Sulfate [Proair Hfa 2 puffs IH Q6HP PRN 07/25/17 05/18/19 90mcg/puff Inh] Cholecalciferol (Vitamin D3) 5,000 unit PO DAILY 07/25/17 05/18/19 [Vitamin D3] Desvenlafaxine Succinate [Pristiq] 50 mg PO HS 07/25/17 05/18/19 Linaclotide [Linzess] 72 mcg PO DAILY 07/25/17 05/18/19 Linagliptin [Tradjenta] 5 mg PO DAILY 07/25/17 05/18/19 Lisinopril [Lisinopril 10mg Tab] 10 mg PO DAILY 07/25/17 05/18/19 Promethazine HCl [Phenergan 25mg 25 mg PO Q6HP PRN 07/25/17 05/18/19 tab] Tizanidine HCl [Zanaflex] 4 mg PO TIDP PRN 07/25/17 05/18/19 insulin aspar prt-insulin aspart 50 units SUB-Q BID 30 Days 09/09/17 05/18/19 100 unit/mL (70-30) subcutaneous soln pregabalin 200 mg capsule 200 mg PO TID 30 Days 09/09/17 05/18/19 trazodone 150 mg tablet 150 mg PO HS 30 Days 09/09/17 05/18/19 aripiprazole 10 mg tablet 10 mg PO DAILY 30 Days tab 06/29/18 05/18/19 atorvastatin 80 mg tablet 80 mg PO DAILY 30 Days #30 tab 06/29/18 05/18/19 metformin ER 500 mg 500 mg PO DAILY 30 Days tab 06/29/18 05/18/19 tablet,extended release 24 hr diphenoxylate-atropine 2.5 1 tab PO BID PRN tab 11/18/18 05/18/19 mg-0.025 mg tablet Nitrofurantoin Monohyd/M-Cryst 100 mg PO BID 05/18/19 05/18/19 [Macrobid 100 mg Capsule] Allergies/Adverse Reactions: Allergies Allergy/AdvReac Type Severity Reaction Status Date / Time cephalexin [CEPHALEXIN] Allergy Intermediate I-ITCHING Verified 12/04/18 14:25 levofloxacin [From LEVAQUIN] Allergy Intermediate I-RASH Verified 12/04/18 14:25 Penicillins [PENICILLINS] Allergy Intermediate I-RASH, Verified 12/04/18 14:25 VOMITING Quinolones [QUINOLONES] Allergy Intermediate I-RASH Verified 12/04/18 14:25 Sulfa (Sulfonamide Allergy Intermediate I-RASH Verified 12/04/18 14:25 Antibiotics) [SULFA (SULFONAMIDE ANTIBIOTICS)] trimethoprim [TRIMETHOPRIM] Allergy Intermediate I-RASH Verified 12/04/18 14:25 ciprofloxacin [From CIPRO] Allergy Unknown Verified 12/04/18 14:25 eletriptan [From RELPAX] Allergy Unknown Verified 12/04/18 14:25 ergonovine [ERGONOVINE] Allergy Unknown NA-NAUSEA/V Verified 12/04/18 14:25 OMITING erythromycin base Allergy Unknown Verified 12/04/18 14:25 [ERYTHROMYCIN BASE] ketorolac [KETOROLAC] Allergy Unknown NA-NAUSEA/V Verified 12/04/18 14:25 OMITING methadone [METHADONE] Allergy Unknown SWELLING Verified 12/04/18 14:25 OF FEET metoclopramide [From REGLAN] Allergy Unknown NA-HALLUCIN Verified 12/04/18 14:25 ATIONS naratriptan [NARATRIPTAN] Allergy Unknown Verified 12/04/18 14:25 quetiapine [From SEROQUEL] Allergy Unknown Verified 12/04/18 14:25 sumatriptan [From IMITREX] Allergy Unknown Verified 12/04/18 14:25 vilazodone [From VIIBRYD] Allergy Unknown Verified 12/04/18 14:25 CEPHALOSPORINS Allergy Intermediate I-ITCHING Uncoded 12/04/18 14:25 MACROLIDES Allergy Intermediate I-ITCHING Uncoded 12/04/18 14:25 Stroke Alert/NIH Score - LOC Stroke Alert: No Level of Consciousness: Alert LOC Questions: Answers both correctly LOC Commands: Obeys both correctly - Facial/Visual Best Gaze: Normal Visual: No visual loss Facial Palsy: Normal - Motor Motor Response, Left Arm: No drift/Amputation/Fused Motor Response, Right Arm: No drift/Amputation/Fused Motor Response, Left Leg: No drift/Amputation/Fused Motor Response, Right Leg: No drift/Amputation/Fused - Sensory/Language Limb Ataxia: Absent Sensory: Normal Best Language: No aphasia Dysarthria: Normal speech, Intubated or Barrier present - NIH Score Stroke Risk Score: 0 [facility] History - Hepatitis A Screen Drug use history?: No High risk sexual behaviors?: No History of sexually transmitted infection?: No Currently employed?: No Childcare worker?: No Do you have indoor plumbing?: Yes Do you have electricity?: Yes Attestation statement:: This patient has been screened for Hepatitis A risk factors. I have reviewed the patient's past medical history: Yes Medical History: Reports:: Cerebrovascular Accident, Deep Vein Thrombosis, Diabetes Mellitus Type 2, Hyperlipidemia, Hypertension, Migraine Denies:: Cancer, Diabetes Mellitus Type 1, Internal Pacemaker, MRSA Other Medical History: Reports: Arthritis Laterality Cases: Right: Lumpectomy, Bilateral: Other Other Surgeries: Yes: Tubal Ligation. No: Pacemaker Amputation: No Comment: DREZ x 2, Brain tumor - Social History Smoking Status: Never smoker Tobacco Type: cigarettes # Packs/Day (cigarettes): 1 Alcohol Intake: never Substance Use Type: methamphetamine Occupational Status: disabled Housing: apartment Household Members: none Family Hx:: Cancer, Hypertension, Diabetes, Stroke ROS Obtained: Yes All systems reviewed & no additional complaints - Constitutional Constitutional: Denies fever(s) - Eyes Eyes: Denies change in vision - ENT Ears, Nose, Mouth, and Throat: Denies change in voice, Denies nasal congestion - Cardiovascular Cardiovascular: Denies chest pain - Respiratory Respiratory: No cough - Gastrointestinal Gastrointestingal: Denies: abdominal pain - Genitourinary Female Genitourinary: Denies hematuria - Musculoskeletal Musculoskeletal: Reports as per HPI, Denies joint pain, Reports tingling - Integumentary/Breasts Skin/Breast: Denies rash - Neurologic Neurologic: Denies abnormal speech, Denies convulsions, Denies focal weakness, Denies headache(s), Reports tingling/numbness/burning sensations Physical Exam - General General appearance: alert - Head Head exam: normocephalic - Eye Eye exam: Present: PERRL, EOMI - ENT ENT exam: Present: mucous membranes dry - Neck Neck exam: Present: trachea midline - Respiratory Respiratory exam: Absent: respiratory distress - Cardiovascular Cardiovascular exam: Present: regular rate - Abdominal Exam Abdominal exam: Present: soft - Extremities Exam Extremities exam: Present: full ROM - Neurological Exam Neurological exam: Present: alert, oriented X3, CN II-XII intact - Psychiatric Psychiatric exam: Present: normal affect - Skin Skin exam: Absent: rash
[2019-05-19 04:29] LABS: Basophils # 0.1 K/mm3 (0-0.2); Basophils % 0.6 % (0.1-2.0); Eosinophils # 0.1 K/mm3 (0.0-0.4); Eosinophils % 1.2 % (0.1-12.0); Hematocrit 38.7 % (37.0-47.0); Hemoglobin 13.8 g/dL (12.2-16.2); Lymphocytes # 3.4 K/mm3 (0.7-4.5); Lymphocytes % 36.1 % (10-50); Mean Corpuscular HGB Conc 35.8 g/dL (31.8-35.4); Mean Corpuscular Volume 91.1 fl (81-99); Mean Platelet Volume 8.3 fl (7.4-10.4); Monocytes # 0.3 K/mm3 (0.1-1.0); Monocytes % 3.2 % (1.7-9.3); Neutrophils # 5.5 K/mm3 (1.8-7.8); Platelet Count 224 K/mm3 (142-424); Red Blood Count 4.25 M/mm3 (4.20-5.40); Red Cell Distribution Width 12.2 % (11.5-17.5); White Blood Count 9.3 K/mm3 (4.8-10.8)
[2019-05-19 04:33] LABS: Anion Gap 11.4 mEq/L (5-15)
--- NOTE | 2019-05-19 07:52 | Pharmacy Consult Notes ---
[facility] Pharmacy VTE Monitoring - Patient Demographics Admission date: 05/18/19 Report Date: 05/19/19 Time: 07:52 Allergies/Adverse Reactions: Patient Allergies cephalexin [CEPHALEXIN] Allergy (Intermediate, Verified 12/04/18 14:25) I-ITCHING Cephalosporins Allergy (Intermediate, Verified 05/19/19 07:48) ITCHING levofloxacin [From LEVAQUIN] Allergy (Intermediate, Verified 12/04/18 14:25) I-RASH Macrolide Antibiotics Allergy (Intermediate, Verified 05/19/19 07:48) ITCHING Penicillins [PENICILLINS] Allergy (Intermediate, Verified 12/04/18 14:25) I-RASH, VOMITING Quinolones [QUINOLONES] Allergy (Intermediate, Verified 12/04/18 14:25) I-RASH Sulfa (Sulfonamide Antibiotics) [SULFA (SULFONAMIDE ANTIBIOTICS)] Allergy (Intermediate, Verified 12/04/18 14:25) I-RASH trimethoprim [TRIMETHOPRIM] Allergy (Intermediate, Verified 12/04/18 14:25) I-RASH ciprofloxacin [From CIPRO] Allergy (Unknown, Verified 05/19/19 07:48) Unknown allergy reaction eletriptan [From RELPAX] Allergy (Unknown, Verified 05/19/19 07:48) Unknown allergy reaction ergonovine [ERGONOVINE] Allergy (Unknown, Verified 12/04/18 14:25) NA-NAUSEA/VOMITING erythromycin base [ERYTHROMYCIN BASE] Allergy (Unknown, Verified 05/19/19 07:48) Unknown allergy reaction ketorolac [KETOROLAC] Allergy (Unknown, Verified 12/04/18 14:25) NA-NAUSEA/VOMITING methadone [METHADONE] Allergy (Unknown, Verified 12/04/18 14:25) SWELLING OF FEET metoclopramide [From REGLAN] Allergy (Unknown, Verified 12/04/18 14:25) NA-HALLUCINATIONS naratriptan [NARATRIPTAN] Allergy (Unknown, Verified 05/19/19 07:48) Unknown allergy reaction quetiapine [From SEROQUEL] Allergy (Unknown, Verified 05/19/19 07:48) Unknown allergy reaction sumatriptan [From IMITREX] Allergy (Unknown, Verified 05/19/19 07:48) Unknown allergy reaction vilazodone [From VIIBRYD] Allergy (Unknown, Verified 05/19/19 07:48) Unknown allergy reaction Height: 1.68 m Weight: 59.534 kg Patient Problems: Current Active Problems CVA (cerebral vascular accident) (Acute) Hyperglycemia due to type 2 diabetes mellitus (Acute) - VTE Risk Labs: VTE Related Lab Results Hgb 13.8 g/dL (12.2-16.2) 05/19/19 04:15 Hct 38.7 % (37.0-47.0) 05/19/19 04:15 Plt Count 224 K/mm3 (142-424) 05/19/19 04:15 BUN 15 mg/dL (7-18) 05/19/19 04:15 Creatinine 0.97 mg/dL (0.55-1.02) 05/19/19 04:15 Estimated Creat Clear 60 mL/min (50-200) 05/19/19 04:15 Was VTE Risk Assessment Performed: Yes VTE Score: 3 VTE Risk Level: Low Risk - Prophylaxis VTE Prophylaxis Ordered?: Yes Types of VTE Prophylaxis: TEDS Knee High Location of Applied Device: Bilateral Lower Extremeties - VTE Diagnosis Confirmed Treatment or plan recommended: Continue Current Treatment
--- NOTE | 2019-05-19 09:09 | H&P/Discharge Summary ---
<Tianna Pérez - Last Filed: 05/19/19 13:38> General - General Admission date:: 05/18/19 Discharge date: 05/19/19 *Admission Date: 05/18/19 *Chief complaint: Increased numbness/tingling in her right hand and arm; drool ing *History of present illness: Ms. Maravilla is a 54-year-old female with a history of migraine headaches, hypertension, tobacco use disorder, meningioma, type 2 diabetes mellitus with hyperglycemia, and previous CVA 2013 who presented to [facility] emergency room for evaluation after experiencing right arm pain and paresthesias with "slobbering" from the right side of her mouth. She stated that she always had pain and paresthesia in the right arm and hand but it felt worse. She denies chest pain, shortness of breath, change in speech, and she always has difficulty with swallowing. She denies any change in her ability to walk or use of her right arm. Thus she presented to the ER. With evaluation in the emergency room she was found to be hypertensive and with hyperglycemia. CT of the head showed no acute changes. She was admitted for further evaluation and treatment. This a.m. she has had a carotid ultrasound. She has been up to the bathroom without difficulty. She feels that the discomfort in her right arm has improved. She has better control of her oral secretions. She does complain of a headache and requests ibuprofen. To note: pt does not monitor BP or BS at home. Insulin is suppose to be BID. She only takes PM dose if she feels her BS is high. [facility] History Medical History: Reports:: Cerebrovascular Accident, Deep Vein Thrombosis, Diabetes Mellitus Type 2, Hyperlipidemia, Hypertension, Migraine Denies:: Cancer, Diabetes Mellitus Type 1, Internal Pacemaker, MRSA, Seizures *Have you ever received a pneumonia vaccine?: No *Have you received a flu vaccine this season?: Yes Other Medical History: Reports: Arthritis, Sinus Problems Laterality Cases: Right: Lumpectomy, Bilateral: Other Other Surgeries: Yes: Cardiac Catheterization, Tubal Ligation, Other (BRAIN SX X3). No: Pacemaker Amputation: No Fractures: No Comment: Meningioma removed from the left side of the brain 2013; repeat DREZ procedure 2016. Teeth extraction 2008. - *Social History Educational Level: Attended College Smoking Status: Current every day smoker Tobacco Type: cigarettes # Packs/Day (cigarettes): 1 Alcohol Intake: former Alcohol Intake Frequency:: holidays/special occasions only Substance Use Type: former substance user *Occupational Status:: disabled Housing: house Household Members: friend(s) *Travel in the last 8 weeks: None Family Hx:: Asthma, Cancer, Diabetes, Hyperlipidemia, Hypertension, Stroke Review of Systems - Constitutional Reports headache(s), Denies fever(s) - Eyes Denies change in vision - ENT Denies ear pain, Denies sore throat - *Cardiovascular Denies chest pain, Denies shortness of breath - *Respiratory Denies chest congestion, Denies cough, Denies shortness of breath, Denies coughing up blood - *Gastrointestinal Denies abdominal pain, Denies constipation, Denies heartburn, Denies loose stools, Denies nausea, Denies vomiting - *Genitourinary Denies difficulty urinating - *Musculoskeletal Denies abnormal walking - *Neurologic Reports tingling/numbness/burning sensations, Reports tingling, Denies abnormal speech, Denies seizure-like activity, Denies localized weakness, Denies headache(s), Denies seizure-like activity - Psychiatric Reports depression Exam Vital signs and Labs for Last 24 Hours: Temp Pulse Resp BP Pulse Ox 98.1 F 85 17 180/89 H 97 05/19/19 07:31 05/19/19 07:31 05/19/19 07:31 05/19/19 07:31 05/19/19 08:00 Laboratory Results - last 24 hr 05/18/19 19:38: Urine Color Yellow, Urine Appearance Clear, Urine pH 6.0, Ur Specific [place] <= 1.005, Urine Protein Negative, Urine Glucose (UA) 3+, Urine Ketones Negative, Urine Blood Negative, Urine Nitrate Negative, Urine Bilirubin Negative, Urine Urobilinogen 0.2, Ur Leukocyte Esterase Negative, Urine WBC Occasional, Ur Squamous Epith Cells 5-10, Urine Bacteria Trace 05/18/19 19:38: WBC 8.9, RBC 4.86, Hgb 15.2, Hct 47.1 H, MCV 96.8, MCH 31.3 H, MCHC 32.3, RDW 12.2, Plt Count 225, MPV 8.1, Neut % (Auto) 64.6, Lymph % (Auto) 29.6, [place] % (Auto) 3.9, Eos % (Auto) 1.2, Baso % (Auto) 0.7, Neut # (Auto) 5.8, Lymph # (Auto) 2.7, [place] # (Auto) 0.4, Eos # (Auto) 0.1, Baso # (Auto) 0.1, ESR 4 05/18/19 19:38: Sodium 133 L, Potassium 3.5, Chloride 95 L, Carbon Dioxide 29, Anion Gap 12.5, BUN 13, Creatinine 1.16 H, Estimated Creat Clear 50, Estimated GFR 48 L, Est GFR ( Amer) 58 L, Glucose 538 H*, Calcium 9.7, Total Bilirubin 0.5, AST 13 L, ALT 35, Alkaline Phosphatase 151 H, Troponin I < 0.02, C-Reactive Protein < 0.2, Total Protein 7.5, Albumin 3.8, Globulin 3.7 H, Albumin/Globulin Ratio 1.0 L 05/18/19 19:38: Urine Opiates Screen Negative, Urine Methadone Screen Negative, Ur Barbituates Screen Negative, Ur Phencyclidine Scrn Negative, Ur Amphetamines Screen Negative, U Benzodiazepines Scrn Negative, Urine Cocaine Screen Negative, U Marijuana (THC) Screen Negative 05/18/19 19:38: Plasma/Serum Alcohol < 3 05/18/19 20:40: Lactate 1.2 05/18/19 22:22: POC Glucose 363 H* 05/19/19 01:10: Troponin I < 0.02 05/19/19 04:15: Troponin I < 0.02 05/19/19 04:15: WBC 9.3, RBC 4.25, Hgb 13.8, Hct 38.7, MCV 91.1, MCH 32.6 H, MCHC 35.8 H, RDW 12.2, Plt Count 224, MPV 8.3, Neut % (Auto) 59.0, Lymph % (Auto) 36.1, [place] % (Auto) 3.2, Eos % (Auto) 1.2, Baso % (Auto) 0.6, Neut # (Auto) 5.5, Lymph # (Auto) 3.4, [place] # (Auto) 0.3, Eos # (Auto) 0.1, Baso # (Auto) 0.1 05/19/19 04:15: Sodium 135 L, Potassium 3.4 L, Chloride 100, Carbon Dioxide 27, Anion Gap 11.4, BUN 15, Creatinine 0.97, Estimated Creat Clear 60, Estimated GFR 59, Est GFR ( Amer) 72 D, Glucose 358 H D, Calcium 9.0 I & O for Last 24 hours: Intake & Output 05/16/19 05/17/19 05/18/19 05/19/19 11:59 11:59 11:59 11:59 Intake Total 690 / 690 Output Total 620 / 620 Balance 70 / 70 Weight 131 lb 4 oz Radiology Reports for the Last 24 Hours: CXR 05/18/19 IMPRESSION: No acute findings. CT of the head 05/18/2019 IMPRESSION: 1. No acute intracranial findings with no significant change. 2. And postsurgical changes with encephalomalacia in the left parietal and right occipital area - Constitutional no acute distress Comments: Appears comfortable - *Routine HEENT Exam Head: Present: normocephalic, atraumatic Eye: Present: EOMI, PERRL. Absent: conjunctival icterus, scleral injection, conjunctivae pink ENT: Present: mucous membranes moist, oropharynx clear - *Routine Neck Exam Present: supple. Absent: carotid bruit, lymphadenopathy, thyromegaly - *Routine Respiratory Exam Present: CTA bilaterally (Anteriorly and posteriorly) - *Routine Cardiovascular Exam Present: RRR - *Routine Abdominal Exam Present: soft, normoactive bowel sounds. Absent: tenderness, distended, guarding - *Routine Extremities Exam Absent: edema, calf tenderness - *Routine Neurological Exam Present: alert, oriented X3, CN II-XII intact, moving all extremities, normal speech. Absent: motor deficit, altered mental status Involuntary movements of the facial muscles and tongue Hospital Course Hospital Course: A.m. after admission patient was feeling better. Paresthesias of the right arm/hand were still present but at baseline. She had control of her oral secretions. She denied chest pain and shortness of breath. She ambulated to the bathroom without difficulty. We will add Norvasc to her medicine regime. Carotid ultrasound results are pending and will follow up with results at the office visit. Prescription for home glucose monitor and testing supplies were written. She will continue with tobacco cessation. She was strongly advised to keep her F/U appt with Dr. Gutierres as scheduled. She was discharged to home on 05/19/19 in stable and satisfactory condition. Results Labs on day of discharge: Labs from last 24 hours 05/19/19 05/19/19 05/19/19 04:15 04:15 04:15 WBC 9.3 RBC 4.25 Hgb 13.8 Hct 38.7 MCV 91.1 MCH 32.6 H MCHC 35.8 H RDW 12.2 Plt Count 224 MPV 8.3 Neut % (Auto) 59.0 Lymph % (Auto) 36.1 [place] % (Auto) 3.2 Eos % (Auto) 1.2 Baso % (Auto) 0.6 Neut # (Auto) 5.5 Lymph # (Auto) 3.4 [place] # (Auto) 0.3 Eos # (Auto) 0.1 Baso # (Auto) 0.1 ESR Sodium 135 L Potassium 3.4 L Chloride 100 Carbon Dioxide 27 Anion Gap 11.4 BUN 15 Creatinine 0.97 Estimated Creat Clear 60 Estimated GFR 59 Est GFR ( Amer) 72 D Glucose 358 H D POC Glucose Lactate Calcium 9.0 Total Bilirubin AST ALT Alkaline Phosphatase Troponin I < 0.02 C-Reactive Protein Total Protein Albumin Globulin Albumin/Globulin Ratio Urine Color Urine Appearance Urine pH Ur Specific [place] Urine Protein Urine Glucose (UA) Urine Ketones Urine Blood Urine Nitrate Urine Bilirubin Urine Urobilinogen Ur Leukocyte Esterase Urine WBC Ur Squamous Epith Cells Urine Bacteria Urine Opiates Screen Urine Methadone Screen Ur Barbituates Screen Ur Phencyclidine Scrn Ur Amphetamines Screen U Benzodiazepines Scrn Urine Cocaine Screen U Marijuana (THC) Screen Plasma/Serum Alcohol 05/19/19 05/18/19 05/18/19 01:10 22:22 20:40 WBC RBC Hgb Hct MCV MCH MCHC RDW Plt Count MPV Neut % (Auto) Lymph % (Auto) [place] % (Auto) Eos % (Auto) Baso % (Auto) Neut # (Auto) Lymph # (Auto) [place] # (Auto) Eos # (Auto) Baso # (Auto) ESR Sodium Potassium Chloride Carbon Dioxide Anion Gap BUN Creatinine Estimated Creat Clear Estimated GFR Est GFR ( Amer) Glucose POC Glucose 363 H* Lactate 1.2 Calcium Total Bilirubin AST ALT Alkaline Phosphatase Troponin I < 0.02 C-Reactive Protein Total Protein Albumin Globulin Albumin/Globulin Ratio Urine Color Urine Appearance Urine pH Ur Specific [place] Urine Protein Urine Glucose (UA) Urine Ketones Urine Blood Urine Nitrate Urine Bilirubin Urine Urobilinogen Ur Leukocyte Esterase Urine WBC Ur Squamous Epith Cells Urine Bacteria Urine Opiates Screen Urine Methadone Screen Ur Barbituates Screen Ur Phencyclidine Scrn Ur Amphetamines Screen U Benzodiazepines Scrn Urine Cocaine Screen U Marijuana (THC) Screen Plasma/Serum Alcohol 05/18/19 05/18/19 05/18/19 19:38 19:38 19:38 WBC RBC Hgb Hct MCV MCH MCHC RDW Plt Count MPV Neut % (Auto) Lymph % (Auto) [place] % (Auto) Eos % (Auto) Baso % (Auto) Neut # (Auto) Lymph # (Auto) [place] # (Auto) Eos # (Auto) Baso # (Auto) ESR Sodium 133 L Potassium 3.5 Chloride 95 L Carbon Dioxide 29 Anion Gap 12.5 BUN 13 Creatinine 1.16 H Estimated Creat Clear 50 Estimated GFR 48 L Est GFR ( Amer) 58 L Glucose 538 H* POC Glucose Lactate Calcium 9.7 Total Bilirubin 0.5 AST 13 L ALT 35 Alkaline Phosphatase 151 H Troponin I < 0.02 C-Reactive Protein < 0.2 Total Protein 7.5 Albumin 3.8 Globulin 3.7 H Albumin/Globulin Ratio 1.0 L Urine Color Urine Appearance Urine pH Ur Specific [place] Urine Protein Urine Glucose (UA) Urine Ketones Urine Blood Urine Nitrate Urine Bilirubin Urine Urobilinogen Ur Leukocyte Esterase Urine WBC Ur Squamous Epith Cells Urine Bacteria Urine Opiates Screen Negative Urine Methadone Screen Negative Ur Barbituates Screen Negative Ur Phencyclidine Scrn Negative Ur Amphetamines Screen Negative U Benzodiazepines Scrn Negative Urine Cocaine Screen Negative U Marijuana (THC) Screen Negative Plasma/Serum Alcohol < 3 05/18/19 05/18/19 19:38 19:38 WBC 8.9 RBC 4.86 Hgb 15.2 Hct 47.1 H MCV 96.8 MCH 31.3 H MCHC 32.3 RDW 12.2 Plt Count 225 MPV 8.1 Neut % (Auto) 64.6 Lymph % (Auto) 29.6 [place] % (Auto) 3.9 Eos % (Auto) 1.2 Baso % (Auto) 0.7 Neut # (Auto) 5.8 Lymph # (Auto) 2.7 [place] # (Auto) 0.4 Eos # (Auto) 0.1 Baso # (Auto) 0.1 ESR 4 Sodium Potassium Chloride Carbon Dioxide Anion Gap BUN Creatinine Estimated Creat Clear Estimated GFR Est GFR ( Amer) Glucose POC Glucose Lactate Calcium Total Bilirubin AST ALT Alkaline Phosphatase Troponin I C-Reactive Protein Total Protein Albumin Globulin Albumin/Globulin Ratio Urine Color Yellow Urine Appearance Clear Urine pH 6.0 Ur Specific [place] <= 1.005 Urine Protein Negative Urine Glucose (UA) 3+ Urine Ketones Negative Urine Blood Negative Urine Nitrate Negative Urine Bilirubin Negative Urine Urobilinogen 0.2 Ur Leukocyte Esterase Negative Urine WBC Occasional Ur Squamous Epith Cells 5-10 Urine Bacteria Trace Urine Opiates Screen Urine Methadone Screen Ur Barbituates Screen Ur Phencyclidine Scrn Ur Amphetamines Screen U Benzodiazepines Scrn Urine Cocaine Screen U Marijuana (THC) Screen Plasma/Serum Alcohol DS: Diagnosis - Discharge Diagnosis (1) Hypertension Status: Acute (2) Paresthesias Status: Acute (3) Tardive dyskinesia Status: Acute (4) Noncompliance with medication regimen Status: Acute (5) Hyperglycemia due to type 2 diabetes mellitus Status: Acute (6) Headache Status: Acute Discharge Plan - Patient Discharge Instructions Patient Instructions: Ischemic Stroke, Type 2 Diabetes, DI for Stroke-Ischemic, DI for Diabetes Type 2, What to Eat if You Have Diabetes - Follow up Plan Follow up with: Vasu Gutierres MD [Primary Care Provider] - 05/25/19 10:45 am Disposition: Home, Self-Long Term Medications: Home Medications Medication Instructions Recorded Confirmed Type Albuterol Sulfate [Proair Hfa 2 puffs IH Q6HP PRN 07/25/17 05/18/19 History 90mcg/puff Inh] Cholecalciferol (Vitamin D3) 5,000 unit PO DAILY 07/25/17 05/18/19 History [Vitamin D3] Desvenlafaxine Succinate [Pristiq] 50 mg PO HS 07/25/17 05/18/19 History Linaclotide [Linzess] 72 mcg PO DAILY 07/25/17 05/18/19 History Linagliptin [Tradjenta 5mg tablet] 5 mg PO DAILY 07/25/17 05/18/19 History Lisinopril [Lisinopril 10mg Tab] 10 mg PO DAILY 07/25/17 05/18/19 History Promethazine HCl [Phenergan 25mg 25 mg PO Q6HP PRN 07/25/17 05/18/19 History tab] Tizanidine HCl [Zanaflex] 4 mg PO TIDP PRN 07/25/17 05/18/19 History pregabalin 200 mg capsule 200 mg PO TID 30 Days 09/09/17 05/18/19 History trazodone 150 mg tablet 150 mg PO HS 30 Days 09/09/17 05/18/19 History aripiprazole 10 mg tablet 10 mg PO HS 30 Days tab 06/29/18 05/19/19 History atorvastatin 80 mg tablet 80 mg PO HS 30 Days #30 tab 06/29/18 05/19/19 History metformin ER 500 mg 1,000 mg PO DAILY 30 Days tab 06/29/18 05/19/19 History tablet,extended release 24 hr diphenoxylate-atropine 2.5 1 tab PO QIDP PRN tab 11/18/18 05/19/19 History mg-0.025 mg tablet Amlodipine Besylate [Norvasc 5mg 5 mg PO DAILY #30 tab 05/19/19 Rx tablet] Aspirin [Aspirin 325mg Tab] 325 mg PO DAILY 05/19/19 05/19/19 History Insulin NPH Hum/Reg Insulin Hm 50 unit SQ BID 05/19/19 05/19/19 History [Novolin 70-30 Flexpen] Varenicline Tartrate [Chantix 1mg 1 mg PO BID 05/19/19 05/19/19 History tablet] Prescriptions/Medication Reconciliation: New Amlodipine Besylate [Norvasc 5mg tablet] 5 mg PO DAILY #30 tab Continued pregabalin 200 mg capsule 200 mg PO TID 30 Days trazodone 150 mg tablet 150 mg PO HS 30 Days metformin ER 500 mg tablet,extended release 24 hr 1,000 mg PO DAILY 30 Days tab aripiprazole 10 mg tablet 10 mg PO HS 30 Days tab atorvastatin 80 mg tablet 80 mg PO HS 30 Days #30 tab diphenoxylate-atropine 2.5 mg-0.025 mg tablet 1 tab PO QIDP PRN tab PRN Reason: Diarrhea Lisinopril [Lisinopril 10mg Tab] 10 mg PO DAILY Tizanidine HCl [Zanaflex] 4 mg PO TIDP PRN PRN Reason: Muscle Spasm Promethazine HCl [Phenergan 25mg tab] 25 mg PO Q6HP PRN PRN Reason: Nausea And Vomiting Linaclotide [Linzess] 72 mcg PO DAILY Desvenlafaxine Succinate [Pristiq] 50 mg PO HS Cholecalciferol (Vitamin D3) [Vitamin D3] 5,000 unit PO DAILY Aspirin [Aspirin 325mg Tab] 325 mg PO DAILY Varenicline Tartrate [Chantix 1mg tablet] 1 mg PO BID Albuterol Sulfate [Proair Hfa 90mcg/puff Inh] 2 puffs IH Q6HP PRN PRN Reason: Shortness Of Breath Or Wheezing Linagliptin [Tradjenta 5mg tablet] 5 mg PO DAILY Insulin NPH Hum/Reg Insulin Hm [Novolin 70-30 Flexpen] 50 unit SQ BID - Problem Reconciliation Problems Reviewed?: Yes <Vasu Gutierres - Last Filed: 06/06/19 22:51> General - General Admission date:: 05/18/19 Exam Vital signs and Labs for Last 24 Hours: Temp Pulse Resp BP Pulse Ox 98.1 F 70 17 180/89 H 97 05/19/19 07:31 05/19/19 12:00 05/19/19 07:31 05/19/19 07:31 05/19/19 08:00 DS: Diagnosis - Discharge Diagnosis (1) Hypertension Status: Acute (2) Paresthesias Status: Acute (3) Tardive dyskinesia Status: Acute (4) Noncompliance with medication regimen Status: Acute (5) Hyperglycemia due to type 2 diabetes mellitus Status: Acute (6) Headache Status: Acute Discharge Plan - Problem Reconciliation Problems Reviewed?: Yes - Additional Information Additional Information: Patient seen and examined. Concur with plan for discharge.
--- NOTE | 2019-05-19 09:35 | Electrocardiograph Report ---
APPROVED REPORT Exam: Resting ECG HR:88 bpm ECG Measurements Heart Rate 88 AXES IN 182 P 65 QRSd 98 QRS 14 QT 366 T57 QTc 442 <Conclusion> Normal sinus rhythm Normal ECG Electronically signed by : Gerardo Willett, 05/19/2019 09:34:28
--- NOTE | 2019-05-19 17:49 | Cardiology Report ---
APPROVED REPORT Procedure Analyst: Isabella Dale RVT Laterality: Bilateral Study Quality: Good Indications: CVA/TIA Risk Factors Hypertension: TIA/CVA History Hyperlipidemia Diabetes Smoking Doppler Spectral Velocity Analysis ECA (R) 139.20/13.30 cm/sECA (L) 205.70/23.00 cm/s dICA (R) 86.30/30.60 cm/sdICA (L) 53.20/14.50 cm/s Sulaiman (R) 73.00/18.30 cm/smICA (L) 70.50/21.00 cm/s pICA (R) 77.20/23.50 cm/spICA (L) 67.70/20.10 cm/s dCCA (R) 60.10/16.50 cm/smCCA (L) 65.50/14.90 cm/s pCCA (R) 59.50/9.60 cm/spCCA (L) 71.50/13.90 cm/s Vert (L) 52.10/10.70 cm/s Vert (R) 50.80/13.40 cm/s ICA/CCA 1.40 ICA/CCA 0.99 Findings Study suggests less than 20% stenosis of the bilateral internal carotid arteries. Antegrade flow seen bilateral vertebral arteries. Bilateral thyroid nodules seen. Conclusion No increased velocities to suggest hemodynamically significant stenosis in either internal carotid artery. Electronically signed by : Tom Beaulieu MD 05/19/2019 17:48:30
== END 2019-05-19 12:48 | disposition home or self-care (01) ==
LOC: 2ND 19:36 → ER 19:36 → 2ND 22:29
PROVIDERS: ADMIT Family Medicine; ATTEND Family Medicine
CPT/HCPCS: 36415; 70450; 71020; 71046; 80048; 80053; 80305; 81001; 82962; 83605; 84443; 84484; 85025; 85651; 86140; 87040; 93005; 93880; 96374; 99284; G0378

== ENCOUNTER 2019-10-22 18:30 | Inpatient (IN) | payer MEDICARE, MEDICAID, SELFPAY ==
[2019-10-22 18:31] VITALS: BP 110/70; PULSE 85; RESP 18; TEMP 37.1; O2SAT 96; BMI 22.6
--- NOTE | 2019-10-22 18:47 | CT_ITS ---
PROCEDURE: CT HEAD/BRAIN WO CON CLINICAL INDICATION: CVA History Slurred speech COMPARISON: CT HEAD/BRAIN WO CON from 07/17/2019 TECHNIQUE: Axial images obtained. All CT scans at the facility use one or more dose reduction, viz: automated exposure control, ma/kV adjustment per patient size (including targeted exams where dose is matched to indication, i.e. head), or iterative reconstruction technique. FINDINGS: No midline shift, mass effect, intracranial hemorrhage, hydrocephalus, or extra-axial fluid collection is evident. There is cystic encephalomalacia in the right cerebellum and in the left cerebral hemisphere at the frontoparietal junction. Overlying postsurgical craniotomy changes are noted. The findings may be secondary to prior infarction and/or postsurgical change. There is mild atrophy and there is some hypodensity in bilateral cerebral white matter likely due to microvascular disease. There is no acute infarction intracranial hemorrhage mass mass effect extra-axial fluid collection or other significant interval change. No mastoid effusion. No sinus air-fluid level. IMPRESSION: No acute intracranial finding. No significant change compared to 07/17/2019. Dictated by: Marcelo Orellana 10/23/2019 09:03 Electronically signed by Marcelo Orellana in [place] 10/23/2019 09:03
--- NOTE | 2019-10-22 18:50 | XR_ITS ---
PROCEDURE: XR CHEST PORTABLE CLINICAL HISTORY: chest pain COMPARISON: [id number] XR chest portable from 11/04/2018 XR CHEST 2V from 05/18/2019 XR CHEST 2V from 07/17/2019 FINDINGS: The heart is not enlarged. There is an atherosclerotic aorta without active CHF. There is healed granulomatous disease. Calcified large subcarinal lymph node is noted. There is linear density in the left lung base consistent with discoid atelectasis or scarring. There is no acute infiltrate. No acute bony abnormalities. IMPRESSION: No acute infiltrate. Dictated by: Marcelo Orellana 10/23/2019 10:16 Electronically signed by Marcelo Orellana in [facility] 10/23/2019 10:16
--- NOTE | 2019-10-22 18:50 | ECG_ITS ---
APPROVED REPORT Exam: Resting ECG HR:71 bpm ECG Measurements Heart Rate 71 AXES PA 186 P 70 QRSd 94 QRS 54 QT 378 T 66 QTc 410 <Conclusion> Normal sinus rhythm Possible Left atrial enlargement Low voltage QRS ST elevation, consider early repolarization, pericarditis, or injury Abnormal ECG Electronically signed by : Gerardo Willett, 10/23/2019 13:53:02
[2019-10-22 19:04] LABS: Alanine Aminotransferase 22 U/L (12-78); Albumin Level 4.4 g/dl (3.5-5.0); Albumin/Globulin Ratio 1.4 (1.1-1.8); Alkaline Phosphatase 104 U/L (38-126); Amylase 130 U/L (30-110); Aspartate Amino Transferase 25 U/L (14-36); Basophils # 0.1 K/mm3 (0-0.2); Basophils % 0.6 % (0.1-2.0); Bilirubin,Total 0.7 mg/dl (0.2-1.3); Calcium 9.7 mg/dl (8.4-10.2); Carbon Dioxide 21 mmol/L (22.0-30.0); Chloride 90 mmol/L (98-107); Creatinine Clearance Estimated 16 mL/min (50-200); Eosinophils # 0.1 K/mm3 (0.0-0.4); Eosinophils % 1.4 % (0.1-12.0); Estimated Glomerular Filt Rate 12 ml/min (>60); GFR (African American) 14 ML/MIN (>60); Globulin 3.1 g/dL (1.3-3.2); Glucose 226 mg/dl (74-100); Hematocrit 47.7 % (37.0-47.0); Hemoglobin 16.2 g/dL (12.2-16.2); Lipase 575 U/L (23-300); Lymphocytes # 2.7 K/mm3 (0.7-4.5); Lymphocytes % 28.1 % (10-50); Mean Corpuscular HGB Conc 33.9 g/dL (31.8-35.4); Mean Corpuscular Hemoglobin 30.8 pg (27.0-31.2); Mean Corpuscular Volume 90.9 fl (81-99); Monocytes # 0.3 K/mm3 (0.1-1.0); Monocytes % 3.4 % (1.7-9.3); Neutrophils # 6.3 K/mm3 (1.8-7.8); Neutrophils % 66.7 % (37.0-80.0); Platelet Count 246 K/mm3 (142-424); Red Blood Count 5.24 M/mm3 (4.20-5.40); Red Cell Distribution Width 11.8 % (11.5-17.5); Sodium 130 mmol/L (136-145); Total Protein,Serum 7.5 g/dl (6.3-8.2); White Blood Count 9.5 K/mm3 (4.8-10.8)
[2019-10-22 19:11] LABS: Blood Urea Nitrogen 156 mg/dl (7-17)
[2019-10-22 19:16] LABS: Troponin I 0.02 ng/ml (0.00-0.034)
[2019-10-22 19:43] LABS: Microscopic, Urine URINE MICROSCOPIC (MICROSCOPIC)
--- NOTE | 2019-10-22 19:46 | HMH.EDGENADL ---
ED Disposition Condition on Discharge: Good - Critical Care Critical Care Time: No <MarisaIsaac - Last Filed: 10/22/19 19:46> - Critical Care Critical Care Time: Yes Total Critical Care Time: 30 Vital system(s) involved:: Renal Failure My critical care processes included: Assessment & monitoring of V/S, Initial and Re-exams, Data Review/Interpretation, Coordinating Care, Medication Orders and management, Documentation <FlaviolincolnJayson - Last Filed: 10/22/19 21:35> Clinical Impression: Acute kidney injury, Dehydration, Gastroenteritis Disposition: Admitted as Observation Referrals: Provider,Referral, [Referring] - Attestation: On 10/22/19, the high probability of a clinically significant, sudden or life threatening deterioration of the following system(s) required my full and direct attention, intervention and personal management. The time I documented below is in addition to time spent performing reported procedures but includes the following listed in this critical care notation. Medical Decision Making - Medical Records Medical records reviewed: Yes: I reviewed the patient's medical records. - Corey Inquiry Pt receiving controlled substance: No - Lab Data Lab results reviewed: Yes: I reviewed the patient's lab results. Result diagrams: 10/22/19 18:40 10/22/19 18:40 <NilsstefanIsaac whitaker - Last Filed: 10/22/19 19:46> - Lab Data Result diagrams: 10/22/19 18:40 10/22/19 18:40 - Radiology Data #1 Image(s): Chest Image Reviewed: Yes I reviewed the patient's radiology image Preliminary Findings: Normal/NAD - CT Data CT Scan: Head, Abdomen, Pelvis Time Received: 21:09 ([facility] fax) ED CT Reviewed: Yes: I have viewed the radiologist's interpretation Preliminary Findings: Normal/NAD - Physician Consults Physician Consulted: Shree Gutierres Time: 21:25 Reason -: Admission, Pt condition Comment/Response: Agrees to admit the patient to the hospital. We discussed the patient's clinical information, including history, exam, laboratory and radiology results and ED course. Per hospital procedure, I will write temporary bridge inpatient orders on the patient. Specific orders requested by the admitting physician: Continue normal saline, 150 cc/h. Repeat labs in the morning. - Reevaluation(s) Time: 21:15 Time: 21:35 <Jayson Blanton - Last Filed: 10/22/19 21:35> Vital Signs: 10/22/19 18:31 10/22/19 21:20 Temperature 98.7 F Temperature Source Oral Pulse Rate [Right Radial] 85 70 Respiratory Rate 18 16 Blood Pressure [Right Arm] 110/70 128/74 Blood Pressure Mean [Right Arm] 83 92 Blood Pressure Source [Right Arm] Automatic Cuff Blood Pressure Position [Right Arm] Sitting 02 Sat by Pulse Oximetry 96 99 Oxygen Delivery Method Room Air Nasal Cannula Oxygen Flow Rate (LPM) 2 - Lab Data Lab Results 10/22/19 18:40: Troponin I 0.02, Amylase 130 H 10/22/19 18:40: WBC 9.5, RBC 5.24, Hgb 16.2, Hct 47.7 H, MCV 90.9, MCH 30.8, MCHC 33.9, RDW 11.8, Plt Count 246, MPV 9.0, Neut % (Auto) 66.7, Lymph % (Auto) 28.1, [place] % (Auto) 3.4, Eos % (Auto) 1.4, Baso % (Auto) 0.6, Neut # (Auto) 6.3, Lymph # (Auto) 2.7, [place] # (Auto) 0.3, Eos # (Auto) 0.1, Baso # (Auto) 0.1 10/22/19 18:40: Sodium 130 L, Potassium 4.0, Chloride 90 L, Carbon Dioxide 21 L, Anion Gap 23.0 H, BUN 156 H*, Creatinine 3.90 H, Estimated Creat Clear 16, Estimated GFR 12 L*, Est GFR ( Amer) 14 L*, Glucose 226 H, Calcium 9.7, Total Bilirubin 0.7, AST 25, ALT 22, Alkaline Phosphatase 104, Total Protein 7.5, Albumin 4.4, Globulin 3.1, Albumin/Globulin Ratio 1.4, Lipase 575 H 10/22/19 18:40: Urine Color Yellow, Urine Appearance Clear, Urine pH 5.0, Ur Specific [place] 1.025, Urine Protein Negative, Urine Glucose (UA) Negative, Urine Ketones Negative, Urine Blood Negative, Urine Nitrate Negative, Urine Bilirubin Negative, Urine Urobilinogen 0.2, Ur Leukocyte Esterase Negative, Urine WBC 3-5, Ur Squamous Epith Cells 5-10, Amorphous Sediment
[2019-10-22 19:53] LABS: Appearance,Urine CLEAR (Clear); Bilirubin,Urine Negative (Negative); Blood, Urine Negative (Negative); Color,Urine YELLOW (Yellow); Glucose,Urine (UA) Negative (Negative); Ketones,Urine Negative (Negative); Leukocyte Esterase,Urine Negative (Negative); Nitrate,Urine Negative (Negative); Protein,Urine Negative (Negative); Specific Gravity, Urine 1.025 (1.005-1.030); Urobilinogen,Urine 0.2 EU/dl (0.2)
[2019-10-22 19:55] LABS: Amorphous Sediment,Urine 1+ /lpf
[2019-10-22 19:57] LABS: Barbiturates Screen,Urine Negative ng/ml (<200)
[2019-10-22 19:58] LABS: Benzodiazepines Screen,Urine Negative ng/ml (<200)
[2019-10-22 19:59] LABS: Amphetamine/Metha Screen,Urine Negative ng/ml (<1000); Cannabinoid Screen,Urine Negative ng/ml (<50)
[2019-10-22 20:00] LABS: Cocaine Screen,Urine Negative ng/ml (<300)
[2019-10-22 20:01] LABS: Methadone Screen,Urine Negative ng/ml (<300); Opiate Screen,Urine Negative ng/ml (<300)
[2019-10-22 20:02] LABS: Phencyclidine Screen,Urine Negative ng/ml (<25)
--- NOTE | 2019-10-22 20:14 | CT_ITS ---
PROCEDURE: CT ABDOMEN PELVIS WO CON CLINICAL INDICATION: vomiting, elev panc enzymes COMPARISON: No exams were available for comparison TECHNIQUE: Axial images obtained with sagittal and coronal reformats. All CT scans at the facility use one or more dose reduction, viz: automated exposure control, ma/kV adjustment per patient size (including targeted exams where dose is matched to indication, i.e. head), or iterative reconstruction technique. FINDINGS: LOWER THORAX: No acute finding coronary arterial calcifications are noted. There is a small hiatal hernia. Calcified granulomas are seen in both lung bases. ABDOMEN & PELVIS: The liver, spleen, pancreas, adrenal glands, and kidneys show no acute finding. A 1 millimeter calcification in the lateral cortex of the right mid kidney image 36 series 3 is most consistent with nonobstructing nephrolithiasis. There is mild nodularity of the left adrenal gland. This may be within normal variation. Adenomatous disease is not excluded. Hounsfield unit measurement of 9 would favor benign adenoma. No intestinal obstruction or free air. No evidence of appendicitis or diverticulitis. There are calcified uterine fibroids. No pelvic mass, abnormal fluid collection, or focal inflammatory change of the pelvis. Scattered atherosclerotic calcifications are seen in the abdominal aorta iliac mesenteric and renal vessels. There is no aneurysm. There is compression deformity of L1 with loss of 1/2 to 2/3 vertebral body height with up to 5 millimeters retropulsion of bone into the central spinal canal with mild central canal stenosis. There is no associated lucent fracture line or paraspinal hematoma. The finding is favored to be chronic. Clinical correlation is recommended in attempt to confirm chronicity of this finding. Hypertrophic facet disease is noted bilaterally L4-5, L5-S1. Calcific and soft tissue densities in the gluteal regions bilaterally are most consistent with injection granulomas. IMPRESSION: Probable chronic compression deformity of L1. No acute intra-abdominal/pelvic pathology. Small hiatal hernia. Atherosclerosis Dictated by: Marcelo Orellana 10/23/2019 08:55 Electronically signed by Marcelo Orellana in [place] 10/23/2019 08:55
[2019-10-22 21:20] VITALS: BP 128/74; PULSE 70; RESP 16; O2SAT 99
--- NOTE | 2019-10-22 21:26 | PC.NURSE ---
KACI COFFEY on phone with Dr huang
[2019-10-22 21:53] VITALS: BP 106/72; PULSE 77; RESP 16; TEMP 37.1; O2SAT 99
[2019-10-22 22:11] VITALS: BP 102/67; PULSE 75; RESP 18; TEMP 36.6; O2SAT 98; BMI 21.6
--- NOTE | 2019-10-22 22:18 | PC.NURSE ---
PT ARRIVED TO THE FLOOR VIA WHEELCHAIR FROM ED DEPARTMENT @ [phone].
[2019-10-22 22:30] LABS: Troponin I 0.06 ng/ml (0.00-0.034)
[2019-10-22 22:34] VITALS: PULSE 70
[2019-10-22 23:29] VITALS: O2SAT 81
[2019-10-23] VITALS (12 sets, daily range): BP systolic 90–131; BP diastolic 57–71; PULSE 56–93; RESP 12–18; TEMP 36.4–36.7; O2SAT 89–100; BMI 21.9
[2019-10-23 01:22] LABS: Troponin I 0.08 ng/ml (0.00-0.034)
[2019-10-23 04:00] LABS: POC Glucose,Bedside 128 (70-110)
[2019-10-23 07:18] LABS: Chloride 104 mmol/L (98-107); Sodium 132 mmol/L (136-145)
[2019-10-23 07:19] LABS: Potassium 3.7 mmoL/L (3.5-5.1)
[2019-10-23 07:21] LABS: Anion Gap 13.7 mEq/L (5-15); Carbon Dioxide 18 mmol/L (22.0-30.0); Creatinine Clearance Estimated 24 mL/min (50-200); Estimated Glomerular Filt Rate 20 ml/min (>60); GFR (African American) 24 ML/MIN (>60)
[2019-10-23 07:22] LABS: Glucose 149 mg/dl (74-100)
[2019-10-23 07:29] LABS: Blood Urea Nitrogen 123 mg/dl (7-17); Calcium 8.3 mg/dl (8.4-10.2)
--- NOTE | 2019-10-23 07:48 | P.CONPHA_ITS ---
[facility] Pharmacy VTE Monitoring - Patient Demographics Admission date: 10/23/19 Report Date: 10/23/19 Time: 07:48 Allergies/Adverse Reactions: Patient Allergies cephalexin [CEPHALEXIN] Allergy (Intermediate, Verified 12/04/18 14:25) I-ITCHING Cephalosporins Allergy (Intermediate, Verified 05/19/19 07:48) ITCHING levofloxacin [From LEVAQUIN] Allergy (Intermediate, Verified 12/04/18 14:25) I-RASH Macrolide Antibiotics Allergy (Intermediate, Verified 05/19/19 07:48) ITCHING Penicillins [PENICILLINS] Allergy (Intermediate, Verified 12/04/18 14:25) I-RASH, VOMITING Quinolones [QUINOLONES] Allergy (Intermediate, Verified 12/04/18 14:25) I-RASH Sulfa (Sulfonamide Antibiotics) [SULFA (SULFONAMIDE ANTIBIOTICS)] Allergy (Intermediate, Verified 12/04/18 14:25) I-RASH trimethoprim [TRIMETHOPRIM] Allergy (Intermediate, Verified 12/04/18 14:25) I-RASH ciprofloxacin [From CIPRO] Allergy (Unknown, Verified 05/19/19 07:48) Unknown allergy reaction eletriptan [From RELPAX] Allergy (Unknown, Verified 05/19/19 07:48) Unknown allergy reaction ergonovine [ERGONOVINE] Allergy (Unknown, Verified 12/04/18 14:25) NA-NAUSEA/VOMITING erythromycin base [ERYTHROMYCIN BASE] Allergy (Unknown, Verified 05/19/19 07:48) Unknown allergy reaction ketorolac [KETOROLAC] Allergy (Unknown, Verified 12/04/18 14:25) NA-NAUSEA/VOMITING methadone [METHADONE] Allergy (Unknown, Verified 12/04/18 14:25) SWELLING OF FEET metoclopramide [From REGLAN] Allergy (Unknown, Verified 12/04/18 14:25) NA-HALLUCINATIONS naratriptan [NARATRIPTAN] Allergy (Unknown, Verified 05/19/19 07:48) Unknown allergy reaction quetiapine [From SEROQUEL] Allergy (Unknown, Verified 05/19/19 07:48) Unknown allergy reaction sumatriptan [From IMITREX] Allergy (Unknown, Verified 05/19/19 07:48) Unknown allergy reaction vilazodone [From VIIBRYD] Allergy (Unknown, Verified 05/19/19 07:48) Unknown allergy reaction Height: 1.68 m Weight: 61.745 kg Patient Problems: Current Active Problems Acute kidney injury (Acute) Dehydration (Acute) Gastroenteritis (Acute) - VTE Risk Labs: VTE Related Lab Results Hgb 16.2 g/dL (12.2-16.2) 10/22/19 18:40 Hct 47.7 % (37.0-47.0) H 10/22/19 18:40 Plt Count 246 K/mm3 (142-424) 10/22/19 18:40 BUN 123 mg/dl (7-17) H* 10/23/19 06:45 Creatinine 2.50 mg/dl (0.52-1.04) H D 10/23/19 06:45 Estimated Creat Clear 24 mL/min (50-200) 10/23/19 06:45 Was VTE Risk Assessment Performed: Yes VTE Score: 6 VTE Risk Level: Moderate Risk - Prophylaxis Types of VTE Prophylaxis: TEDS Knee High (JONE HOSE ORDERED)
--- NOTE | 2019-10-23 09:09 | HMH.HP ---
*Admission Date: 10/23/19 *Chief complaint: Intractable vomiting *History of present illness: Dang is a 54-year-old white female with a history of hypertension, type 2 diabetes mellitus, chronic headache syndrome, and previous stroke who presented to the emergency room last evening by ambulance with a 10-day history of persistent vomiting and diarrhea. She was also complaining of chest pain. She was worked up in the emergency room with findings of markedly elevated BUN and creatinine consistent with prerenal azotemia/dehydration. Lipase was mildly elevated. CT of head and abdomen and her chest x-ray showed nothing acute. She was started on IV fluids and given a GI cocktail and Pepcid for her chest pain which improved. She was subsequently admitted for further treatment with IV hydration and antiemetics. Since admission to the floor, she has had no further vomiting. She has been tolerating liquids. She does report some heartburn but no abdominal pain. States she has not had a bowel movement for about 3 days. [facility] History Medical History: Reports:: Anxiety, Chronic Obstructive Pulmonary Disease (COPD), Cerebrovascular Accident (intraoperative), Deep Vein Thrombosis, Depression, Diabetes Mellitus Type 2, Hyperlipidemia, Hypertension, Migraine Denies:: Diabetes Mellitus Type 1, Internal Pacemaker, MRSA, Seizures *Have you ever received a pneumonia vaccine?: Yes (4 years ago) *Have you received a flu vaccine this season?: No Other Medical History: Reports: Arthritis, Sinus Problems, Other (Chronic headache syndrome, benign meningioma) Laterality Cases: Right: Lumpectomy, Bilateral: Other Other Surgeries: Yes: Cardiac Catheterization, Tubal Ligation, Other (DREZ procedure x 2; excision of meningioma). No: Pacemaker Amputation: No Fractures: No - *Social History Educational Level: Completed High School Smoking Status: Former smoker Tobacco Type: cigarettes # Packs/Day (cigarettes): 1 Smoking End Date: 07/21/2019 Alcohol Intake: former Alcohol Intake Frequency:: holidays/special occasions only Substance Use Type: methamphetamine *Occupational Status:: disabled Housing: apartment ([facility]) Household Members: none *Travel in the last 8 weeks: None Family Hx:: Asthma, Cancer, Diabetes, Hyperlipidemia, Hypertension, Stroke Review of Systems - Constitutional Reports headache(s), Reports weight loss, Denies chills, Denies fever(s) - Eyes Reports blurry vision - ENT Reports dizziness, Reports dry mouth, Denies difficulty swallowing, Denies pain with swallowing - *Cardiovascular Reports chest pain at rest, Denies leg swelling - *Respiratory Denies cough - *Gastrointestinal Reports other (SEE HPI) - *Genitourinary Reports other (decreased UOP), Denies abnormal vaginal bleeding, Denies difficulty urinating - *Musculoskeletal Reports joint swelling - Integumentary/Breasts Denies hair loss, Denies yellowing of the skin - *Neurologic Reports abnormal speech (related to old stroke), Reports unsteadiness, Denies loss of vision - Psychiatric Reports depression - Endocrine Denies cold intolerance - Hematologic/Lymphatic Denies easy bruising Meds Home Medications Medication Instructions Recorded Confirmed Type Albuterol Sulfate [Proair Hfa 2 puffs IH Q6HP PRN 07/25/17 10/22/19 History 90mcg/puff Inh] Cholecalciferol (Vitamin D3) 5,000 unit PO DAILY 07/25/17 10/22/19 History [Vitamin D3] Desvenlafaxine Succinate [Pristiq] 50 mg PO HS 07/25/17 10/22/19 History Promethazine HCl [Phenergan 25mg 25 mg PO Q6HP PRN 07/25/17 10/22/19 History tab] Tizanidine HCl [Zanaflex] 4 mg PO TIDP PRN 07/25/17 10/22/19 History lisinopriL [Lisinopril 10mg Tab] 10 mg PO DAILY 07/25/17 10/22/19 History pregabalin 200 mg capsule 200 mg PO TID 30 Days 09/09/17 10/22/19 History trazodone 150 mg tablet 150 mg PO HS 30 Days 09/09/17 10/22/19 History atorvastatin 80 mg tablet 80 mg PO HS 30 Days #30 tab 06/29/18 10/22/19 Histor
--- NOTE | 2019-10-23 11:11 | HMH.PHAINT ---
MED REC-COMPARED MED LIST WITH RX FILL HX. PATIENT PRESENTED WITH VOMITING/PANCREATITIS. DIABETES MEDICATIONS NOT RESTARTED BY HIGH INTENSITY SSI STARTED.
[2019-10-23 12:01] LABS: POC Glucose,Bedside 162 (70-110)
--- NOTE | 2019-10-23 15:28 | PC.NURSE ---
No acute changes noted this shift, patient has reported a headache, treated with tylenol per emar with no relief, Dr. Swann notified who ordered her a ice pack for her head, pt refused ice pack. No s/s of distress noted, no n/v/d noted this shift, will continue to monitor.
[2019-10-23 17:04] LABS: POC Glucose,Bedside 171 (70-110)
--- NOTE | 2019-10-23 19:00 | PC.NURSE ---
Maru Neff, student nurse will be providing care to pt under my supervision
[2019-10-23 20:59] LABS: POC Glucose,Bedside 149 (70-110)
--- NOTE | 2019-10-23 21:19 | PC.NURSE ---
MD notified of pt c/o headache and that she hasn't taken home medication, Lyrica and Tizanidine. Lyrica 150 mg PO ordered. MD to review medications in AM.
--- NOTE | 2019-10-23 22:14 | PC.NURSE ---
Patient stated that she no longer wanted to wear her NC and that she did not wear oxygen at home. Patient educated on importance of O2 use. Patient O2 saturation 100% on 2L NC. O2 removed per patient request, will reassess in 20 minutes.
--- NOTE | 2019-10-23 23:11 | PC.NURSE ---
Patient reassessed following titration of O2, patient O2 saturation stable at 96% on room air. will continue to monitor
[2019-10-24] VITALS (13 sets, daily range): BP systolic 101–143; BP diastolic 61–88; PULSE 60–80; RESP 16–19; TEMP 36.4–36.9; O2SAT 94–99; BMI 23.1
--- NOTE | 2019-10-24 02:31 | PC.NURSE ---
Pt awae, sitting up in bed. States she can't sleep. Pt has tolerated full liquids tonight. Has had soup, broth, jello and gatorade. Pt asked when she will be able to have solid food. Education provided on diet. Pt has not c/o nausea since beginning of shift nor has requested any medication for it. VSS. Pt currently on RA at this time. Medication administered per sep. Call light within reach. Will continue to monitor.
[2019-10-24 06:47] LABS: Basophils % 0.4 % (0.1-2.0); Eosinophils # 0.1 K/mm3 (0.0-0.4); Eosinophils % 0.9 % (0.1-12.0); Hematocrit 38.8 % (37.0-47.0); Lymphocytes # 3.1 K/mm3 (0.7-4.5); Lymphocytes % 36.3 % (10-50); Mean Corpuscular HGB Conc 33.4 g/dL (31.8-35.4); Mean Corpuscular Volume 89.8 fl (81-99); Mean Platelet Volume 8.7 fl (7.4-10.4); Monocytes # 0.4 K/mm3 (0.1-1.0); Monocytes % 4.1 % (1.7-9.3); Neutrophils % 58.2 % (37.0-80.0); Platelet Count 166 K/mm3 (142-424); Red Blood Count 4.33 M/mm3 (4.20-5.40); Red Cell Distribution Width 11.7 % (11.5-17.5); White Blood Count 8.6 K/mm3 (4.8-10.8)
[2019-10-24 06:59] LABS: Amylase 71 U/L (30-110); Blood Urea Nitrogen 61 mg/dl (7-17); Calcium 8.8 mg/dl (8.4-10.2); Carbon Dioxide 19 mmol/L (22.0-30.0); Creatinine Clearance Estimated 54 mL/min (50-200); Estimated Glomerular Filt Rate 46 ml/min (>60); GFR (African American) 56 ML/MIN (>60); Lipase 266 U/L (23-300); Potassium 4.1 mmoL/L (3.5-5.1); Sodium 140 mmol/L (136-145)
[2019-10-24 07:01] LABS: POC Glucose,Bedside 210 (70-110)
[2019-10-24 07:02] LABS: Anion Gap 11.1 mEq/L (5-15); Chloride 114 mmol/L (98-107)
[2019-10-24 07:03] LABS: Glucose 193 mg/dl (74-100)
[2019-10-24 07:13] LABS: Troponin I 0.01 ng/ml (0.00-0.034)
--- NOTE | 2019-10-24 09:28 | HMH.ACPN2 ---
Internal Medicine - PN: Subj *Date: 10/24/19 *Time: 09:47 Interval history: States she did not sleep much last night but otherwise feels better. She is tolerating the full liquid diet with no vomiting. She did have some nausea yesterday. She continues to complain of frequent heartburn. No bowel movement since admission. No abdominal pain. Exam Vital signs and Labs for Last 24 Hours: Temp Pulse Resp BP Pulse Ox 98.3 F 73 19 138/88 99 10/24/19 08:20 10/24/19 08:20 10/24/19 08:20 10/24/19 08:20 10/24/19 08:26 Laboratory Results - last 24 hr 10/23/19 11:49: POC Glucose 162 H 10/23/19 16:57: POC Glucose 171 H 10/23/19 20:00: POC Glucose 149 H 10/24/19 06:20: WBC 8.6, RBC 4.33, Hgb 13.0, Hct 38.8, MCV 89.8, MCH 30.0, MCHC 33.4, RDW 11.7, Plt Count 166 D, MPV 8.7, Neut % (Auto) 58.2, Lymph % (Auto) 36.3, [place] % (Auto) 4.1, Eos % (Auto) 0.9, Baso % (Auto) 0.4, Neut # (Auto) 5.0, Lymph # (Auto) 3.1, [place] # (Auto) 0.4, Eos # (Auto) 0.1, Baso # (Auto) 0.0 10/24/19 06:20: Sodium 140, Potassium 4.1, Chloride 114 H, Carbon Dioxide 19 L, Anion Gap 11.1, BUN 61 H D, Creatinine 1.20 H D, Estimated Creat Clear 54, Estimated GFR 46 L, Est GFR ( Amer) 56 L D, Glucose 193 H D, Calcium 8.8, Troponin I 0.01, Amylase 71, Lipase 266 10/24/19 06:43: POC Glucose 210 H I & O for Last 24 hours: Intake & Output 10/21/19 10/22/19 10/23/19 10/24/19 11:59 11:59 11:59 11:59 Intake Total 1000 / 1000 6617 / 6617 Output Total 750 / 750 4100 / 4100 Balance 250 / 250 2517 / 2517 Weight 136 lb 2 oz 143 lb 9 oz Narrative: She is much more alert this morning. She appears in no distress. Mucous membranes are moist. Chest with coarse breath sounds. Heart is regular with no ectopy. Abdomen soft and nondistended with no masses or tenderness. Assessment and Plan (1) Intractable vomiting Current visit: Yes Status: Acute Category: Medical Code(s): R11.10 - Vomiting, unspecified (2) Dehydration Current visit: Yes Status: Acute Category: Medical Code(s): E86.0 - Dehydration (3) Acute kidney injury Current visit: Yes Status: Acute Category: Medical Code(s): N17.9 - Acute kidney failure, unspecified (4) Pancreatitis Current visit: Yes Status: Acute Category: Medical Code(s): K85.90 - Acute pancreatitis without necrosis or infection, unspecified (5) Type 2 diabetes mellitus Current visit: Yes Status: Acute Category: Medical Code(s): E11.9 - Type 2 diabetes mellitus without complications (6) Chronic mixed headache syndrome Current visit: Yes Status: Acute Category: Medical Code(s): G44.89 - Other headache syndrome (7) Hypertension Current visit: No Status: Acute Category: Medical Code(s): I10 - Essential (primary) hypertension (8) Tardive dyskinesia Current visit: No Status: Acute Category: Medical Code(s): G24.01 - Drug induced subacute dyskinesia (9) History of CVA (cerebrovascular accident) Current visit: Yes Status: Acute Category: Medical Code(s): Z86.73 - Personal history of transient ischemic attack (TIA), and cerebral infarction without residual deficits (10) Elevated troponin Current visit: Yes Status: Acute Category: Medical Code(s): R79.89 - Other specified abnormal findings of blood chemistry - Assessment and plan all Dx Assessment and Plan for all problems:: Labs improved with creatinine down to 1.2. BUN remains elevated. Pancreatic enzymes are normal. We will continue to advance her diet. Decrease IV fluids to 125/h. Cardiology consult for tomorrow due to elevated enzymes and persistent complaints of chest pain although still sounds most suspicious for esophagitis.
[2019-10-24 16:28] LABS: POC Glucose,Bedside 194 (70-110)
[2019-10-24 16:28] LABS: POC Glucose,Bedside 105 (70-110)
--- NOTE | 2019-10-24 18:50 | PC.NURSE ---
Addendum entered by Beka García RN 10/24/19 18:52: SAFETY MEASURES IN PLACE, CALL LIGHT WITHIN REACH, WILL CONTINUE TO MONITOR Original Note: ALERT AND ORIENTED X3. PT HAS EPISODES OF CONFUSION. PT DENIES N/V/D. PT TOLERATED DIET ADVANCEMENT WITHOUT PROBLEM. NO COMPLAINTS VOICED. VSS. SAFETY MEASURES ION
[2019-10-24 21:03] LABS: POC Glucose,Bedside 129 (70-110)
[2019-10-25] VITALS (7 sets, daily range): BP systolic 121–150; BP diastolic 70–81; PULSE 62–90; RESP 16–20; TEMP 36.7–36.8; O2SAT 91–100; BMI 23.1; BMI 23.0
--- NOTE | 2019-10-25 05:11 | PC.NURSE ---
No acute changes during this shift, Patient slept comfortably for most of the night, No complaints of N/V or pain this shift, She has remained NSR on telemetry, Patient displayed no signs of agitation or confusion, vital signs remained stable, blood glucose remained at acceptable levels without insulin administration, Patient has been showered in preparation for cardiac consult.
[2019-10-25 05:52] LABS: Chloride 119 mmol/L (98-107)
[2019-10-25 05:53] LABS: Potassium 4.5 mmoL/L (3.5-5.1); Sodium 142 mmol/L (136-145)
[2019-10-25 05:55] LABS: Blood Urea Nitrogen 28 mg/dl (7-17)
[2019-10-25 05:56] LABS: Anion Gap 7.5 mEq/L (5-15); Calcium 8.2 mg/dl (8.4-10.2); Carbon Dioxide 20 mmol/L (22.0-30.0); Creatinine Clearance Estimated 72 mL/min (50-200); Estimated Glomerular Filt Rate 65 ml/min (>60); GFR (African American) 78 ML/MIN (>60)
[2019-10-25 05:58] LABS: Glucose 109 mg/dl (74-100)
--- NOTE | 2019-10-25 06:31 | PC.NURSE ---
Upon assessment this am, pt was noted to be lethargic. Pt was difficult to arouse. Sternal rub performed. Pt woke asking for water then stating, I couldn't get it out. Pointing at her throat and chest. Pt was confused. VS obtained. BP 176/92,P 73. Pt was assessed per stroke scale for possible CVA. Manual BP obtained 180/86. paged. Pt confused, but more responsive. Pt responding and ansering some questions. Pt continues to say she could not get out words and that she is scared. Pt becoming more emotional. Spoke with MD. Labs CBC and BMP ordered. Pt can now state name, where she is at and date. Pt was assisted to BSC per pt request and voided with 300 cc urine output. Total urine output for shift 800 cc . At 0700, labor relations representative came in room and obtained blood. Pt became agitated and demanded lab leave room. Pt picked cup up and threatened to throw it at her then started crying and said she was scared. Pt was reassured by staff that lab was not going to hurt her and that blood was being obtained for labs. Pt awake in bed, waiting for breakfast at this time. Pt states she is hungry. BP 150/83. Will continue to monitor.
[2019-10-25 06:49] LABS: POC Glucose,Bedside 87 (70-110)
[2019-10-25 07:26] LABS: Basophils # 0.1 K/mm3 (0-0.2); Basophils % 0.6 % (0.1-2.0); Eosinophils # 0.1 K/mm3 (0.0-0.4); Eosinophils % 1.2 % (0.1-12.0); Hemoglobin 12.6 g/dL (12.2-16.2); Lymphocytes % 51.3 % (10-50); Mean Corpuscular HGB Conc 33.2 g/dL (31.8-35.4); Mean Corpuscular Hemoglobin 29.7 pg (27.0-31.2); Mean Corpuscular Volume 89.5 fl (81-99); Monocytes # 0.4 K/mm3 (0.1-1.0); Monocytes % 4.8 % (1.7-9.3); Neutrophils # 3.3 K/mm3 (1.8-7.8); Neutrophils % 42.2 % (37.0-80.0); Platelet Count 151 K/mm3 (142-424); Red Blood Count 4.25 M/mm3 (4.20-5.40); Red Cell Distribution Width 11.7 % (11.5-17.5); White Blood Count 7.8 K/mm3 (4.8-10.8)
[2019-10-25 07:28] LABS: MANUAL DIFFERENTIAL MANUAL DIFFERENTIAL (MANUAL DIFF)
--- NOTE | 2019-10-25 07:56 | HMH.ACPN2 ---
<Tianna Pérez - Last Filed: 10/25/19 07:56> Internal Medicine - PN: Subj *Date: 10/25/19 *Time: 07:56 Interval history: Patient is crying this morning. She states she is having difficulty with her speech. She also got choked when trying to eat her breakfast. She remembers that in order to get her awake this morning the nurses had to rub on her sternum. She has been able to move all her extremities. She is not having difficulty with breathing. She describes midsternal chest discomfort with swallowing. Patient is hungry and would like to eat breakfast but is afraid of becoming choked. She had a good day yesterday. She was out of bed only to go to the bathroom. She did eat without difficulty. Nurses report that she was fine at 4 AM when they assisted her to the bathroom. Then when trying to wake her later was when they did the sternal rub. Speech has been slow and garbled since. Patient did take trazodone and Zanaflex last p.m. She denies taking any other medications during the night or this a.m. Laboratory data this morning reveals improved renal function with a BUN of 28 creatinine of 0.9. CBC is pretty much normal. Blood pressure this morning is 150/78. O2 sats are at 97%. She is afebrile and is voiding QS. Exam Vital signs and Labs for Last 24 Hours: Temp Pulse Resp BP Pulse Ox 98.3 F 77 17 150/78 H 97 10/25/19 07:48 10/25/19 07:48 10/25/19 07:48 10/25/19 07:48 10/25/19 07:48 Laboratory Results - last 24 hr 10/24/19 11:34: POC Glucose 194 H 10/24/19 16:08: POC Glucose 105 10/24/19 20:16: POC Glucose 129 H 10/25/19 05:35: Sodium 142, Potassium 4.5, Chloride 119 H, Carbon Dioxide 20 L, Anion Gap 7.5, BUN 28 H D, Creatinine 0.90 D, Estimated Creat Clear 72, Estimated GFR 65, Est GFR ( Amer) 78 D, Glucose 109 H D, Calcium 8.2 L 10/25/19 05:59: POC Glucose 87 10/25/19 06:55: WBC 7.8, RBC 4.25, Hgb 12.6, Hct 38.0, MCV 89.5, MCH 29.7, MCHC 33.2, RDW 11.7, Plt Count 151, MPV 9.0, Neut % (Auto) 42.2, Lymph % (Auto) 51.3 H, [place] % (Auto) 4.8, Eos % (Auto) 1.2, Baso % (Auto) 0.6, Neut # (Auto) 3.3, Lymph # (Auto) 4.0, [place] # (Auto) 0.4, Eos # (Auto) 0.1, Baso # (Auto) 0.1 I & O for Last 24 hours: Intake & Output 10/22/19 10/23/19 10/24/19 10/25/19 11:59 11:59 11:59 11:59 Intake Total 1000 / 1000 6617 / 6617 2202 / 2202 Output Total 750 / 750 4450 / 4450 2250 / 2250 Balance 250 / 250 2167 / 2167 -48 / -48 Weight 136 lb 2 oz 143 lb 9 oz 144 lb 3 oz - Constitutional no acute distress - *Routine HEENT Exam Head: Present: normocephalic Eye: Present: PERRL ENT: Present: mucous membranes dry, oropharynx clear - *Routine Respiratory Exam Present: CTA bilaterally (Anteriorly and posteriorly) - *Routine Cardiovascular Exam Present: RRR - *Routine Abdominal Exam Present: soft, normoactive bowel sounds. Absent: tenderness, distended - *Routine Extremities Exam Present: JONE stockings. Absent: edema, calf tenderness - *Routine Neurological Exam Present: alert, oriented X3, moving all extremities, hearing grossly intact. Absent: altered mental status, facial asymmetry, normal speech (Speech is slow and garbled) Tardive dyskinesia Assessment and Plan (1) Intractable vomiting Current visit: Yes Status: Acute Category: Medical Code(s): R11.10 - Vomiting, unspecified (2) Dehydration Current visit: Yes Status: Acute Category: Medical Code(s): E86.0 - Dehydration (3) Acute kidney injury Current visit: Yes Status: Acute Category: Medical Code(s): N17.9 - Acute kidney failure, unspecified (4) Pancreatitis Current visit: Yes Status: Acute Category: Medical Code(s): K85.90 - Acute pancreatitis without necrosis or infection, unspecified (5) Type 2 diabetes mellitus Current visit: Yes Status: Acute Category: Medical Code(s): E11.9 - Type 2 diabetes mellitus without complications (6) Chronic mixed headache syndrome Current visit: Yes Sta
--- NOTE | 2019-10-25 08:29 | CA_ITS ---
APPROVED REPORT EXAM: Comprehensive 2D, Doppler, and color-flow Echocardiogram Ragman: Isabella Dale RVT Ht: 5 ft 6 in Wt: 144lbs BSA: 1.74 BP: 90/58 mmHg Indications: elevated troponins,cp,htn,hld,dm,hx cva,tardive dyskinesia 2D Dimensions LVOT 2.24 cm (M/F) 1.5-2.5 M-Mode Dimensions RVDd 1.89 cm (0.9-2.6) LVDd 4.24 cm (3.5-5.7) LVDs 1.93 cm (3.5-5.7) IVSd 1.06 cm (0.6-1.1) PWd 1.14 cm (0.6-1.1) EF (Teich) 85.60% FS 54.50% EDV (Teich) 80.40 mL ESV (Teich) 11.60 mL LV Diastology E/A Ratio 0.63 Mitral Valve MV A Velocity 108.00 (40-130 cm/s) Left Ventricle Left atrium is mildly enlarged, left ventricle is normal size, mild concentric left ventricular hypertrophy, visually estimated ejection fraction 55% with no regional wall motion abnormality, endocardial surfaces are poorly visualized, grade 1 diastolic dysfunction seen without tissue Doppler evidence of raise left atrial pressure. Right Ventricle Right atrium and right ventricular normal size and contractility. Aortic Valve Aortic valve is thickened and calcified leaflet continue to display good mobility, there is no aortic stenosis, there is trace aortic insufficiency. Mitral Valve Mitral valve is grossly normal, there is mild mitral regurgitation. Tricuspid Valve Tricuspid valve is grossly normal, there is mild tricuspid regurgitation, tricuspid regurgitation jet velocity is inadequate for calculation of the right ventricular systolic pressure. Pulmonic Valve Pulmonic valve is poorly visualized. Great Vessels Aortic root is normal size. Pericardium No significant pericardial effusion noted. Conclusion 1. Mildly enlarged left atrium, normal left ventricular size, mild concentric left ventricular hypertrophy, visually estimated ejection fraction 55% with no regional wall motion abnormality, grade 1 diastolic dysfunction seen without tissue Doppler evidence of raise left atrial pressure, endocardial surfaces are poorly visualized. 2. Thickened and calcified aortic valve without Doppler evidence of aortic stenosis, there is trace aortic insufficiency. 3. Mild mitral and tricuspid regurgitation. 4. No significant pericardial effusion noted. Electronically signed by : Mono Jaramillo, 10/26/2019 07:24:52
--- NOTE | 2019-10-25 08:45 | CA_ITS ---
APPROVED REPORT Parking Meter Installer: Isabella Dale RVT Laterality: Bilateral Study Quality: Good Indications: dysarthria, dysphagia Risk Factors Hypertension: TIA/CVA History Hyperlipidemia Diabetes Smoking Doppler Spectral Velocity Analysis ECA (R) 89.30/10.90 cm/s ECA (L) 249.90/29.10 cm/s dICA (R) 71.10/24.30 cm/s dICA (L) 72.20/21.40 cm/s Sulaiman (R) 88.10/32.80 cm/s Sulaiman (L) 79.80/25.60 cm/s pICA (R) 82.00/19.40 cm/s pICA (L) 97.50/27.90 cm/s dCCA (R) 63.60/15.70 cm/s dCCA (L) 59.90/17.70 cm/s pCCA (R) 101.10/17.10 cm/s pCCA (L) 82.70/17.10 cm/s Vert (R) 56.50/18.80 cm/s Vert (L) 54.40/16.90 cm/s ICA/CCA 1.39 ICA/CCA 1.63 Conclusion Study suggests less than 20% stenosis of the right internal cartoid artery unchanged from 05/18/19 study. study suggests less than 20% stenosis of the left internal cartoid artery unchanged from 05/18/19 study. Antegrade flow seen bilateral vertebral arteries. Enlarged thyroid gland with bilateral nodules. Consider dedicated thyroid ultrasound Electronically signed by : Tom Beaulieu MD 10/25/2019 16:06:40
--- NOTE | 2019-10-25 08:49 | HMH.CNCARD ---
History of Present Illness Consult date: 10/25/19 Requesting physician: Vasu Gutierres Consult reason: chest pain Chief complaint: CP, Nausea and vomiting Additional Medical History:: 1. Type 2 diabetes mellitus, treated for greater than 10 years 2. History of tobacco use discontinued July of this year 3. History of meningioma, status post brain surgery 2013 with intraoperative stroke 4. 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 Carotid u/s, 04/2019, bilateral ICA stenosis <20% 5. History of migraine headaches status post 2 brain surgeries (DREZ procedure) for migraine treatment per patient 6. History of hypertension since age 20 7. History of cardiac catheterization approximately 2009, [place], [place] with patient reporting only mild coronary disease with no need for coronary stenting. A. Christinean myoview, 02/2017, no ischemia with LVEF of 65% History of present illness: Dang is a 54-year-old white female with a history of hypertension, type 2 diabetes mellitus, chronic headache syndrome, and previous stroke who presented to the emergency room last evening by ambulance with a 10-day history of persistent vomiting and diarrhea. She was also complaining of chest pain. She was worked up in the emergency room with findings of markedly elevated BUN and creatinine consistent with prerenal azotemia/dehydration. Lipase was mildly elevated. CT of head and abdomen and her chest x-ray showed nothing acute. She was started on IV fluids and given a GI cocktail and Pepcid for her chest pain which improved. She was subsequently admitted for further treatment with IV hydration and antiemetics. Since admission to the floor, she has had no further vomiting. She has been tolerating liquids. She does report some heartburn but no abdominal pain. States she has not had a bowel movement for about 3 days The above per Dr. Gutierres. Cardiology consulted for evaluation of chest pain (burning sensation substernally) with mildly elevated troponins in setting of Nausea/Vomiting/Dehydration/ARF with Cr of 3.9. When I initially entered the patient's room to see her patient was eating breakfast and became choked on a piece of sausage. She eventually did cough this up. When I returned later she is in no acute distress and comfortable lying in the bed. She is able to answer questions appropriately. She occasionally does have difficulty finding the right word. [facility] History Medical History: Reports:: Anxiety, Cancer (brain tumor), Chronic Obstructive Pulmonary Disease (COPD), Cerebrovascular Accident (intraoperative), Deep Vein Thrombosis, Depression, Diabetes Mellitus Type 2, Hyperlipidemia, Hypertension, Migraine Denies:: Diabetes Mellitus Type 1, Internal Pacemaker, MRSA, Seizures *Have you ever received a pneumonia vaccine?: Yes (4 years ago) *Have you received a flu vaccine this season?: No Other Medical History: Reports: Arthritis, Sinus Problems, Thyroid Disease, Other (Chronic headache syndrome, benign meningioma) Laterality Cases: Right: Lumpectomy, Bilateral: Other Other Surgeries: Yes: Cardiac Catheterization, Tubal Ligation, Other (DREZ procedure x 2; excision of meningioma). No: Pacemaker Amputation: No Fractures: No - *Social History Educational Level: Completed High School Smoking Status: Former smoker Tobacco Type: cigarettes # Packs/Day (cigarettes): 1 Smoking End Date: 07/21/2019 Alcohol Intake: former Alcohol Intake Frequency:: holidays/special occasions only Substance Use Type: methamphetamine *Occupational Status:: disabled Housing: apartment ([facility]) Household Members: none *Travel in the last 8 weeks: None - Psychiatric History Pschychiatric History:: Reports:: Anxiety, Depression Family Hx:: Asthma, Cancer, Diabetes, Hyperlipidemia, Hypertension, Stroke Meds Home Medications Medication Instructions Recorded Confirmed Type Cholecalciferol (Vitamin D3) 5,000 unit PO
[2019-10-25 11:49] LABS: POC Glucose,Bedside 148 (70-110)
[2019-10-25 12:06] LABS: Eosinophils % 2 % (0-3); Lymphocytes % 50 % (10-50); Monocytes % 5 % (2-9); Neutrophils % 43 % (42-76); Total Cells Counted 100
[2019-10-25 12:08] LABS: Platelet Estimate Slight Decrease
[2019-10-25 12:09] LABS: RBC Morphology Normal
--- NOTE | 2019-10-25 12:29 | HMH.SLDYSPHA ---
Speech & Language Evaluation Speech/Language Dysphagia Evaluation Start: 10/25/19 11:20 Freq: ONCE Status: Active Protocol: Document 10/25/19 11:20 CRICKET (Rec: 10/25/19 12:29 CRICKET [id number]) Dysphagia Assess/Goals/Plan Assessment Date of Evaluation: 10/25/19 Evaluation Type Initial Certification Assessment/Problems Dysphagia Does Patient Qualify for Service No Qualify/Failure Comment At this time, diet will be modified due to lack of dentition. She will be monitored for possible diet modifications. Recommendations PHYSICIAN CERTIFICATION: The specified therapy services are required, authorized, and reviewed every 30 days. Diet Recommendations Mechanical Soft Liquid Type Recommendations Normal/Thin Dysphagia Swallow Precautions/Strategies Sitting Upright (90 deg),Small Bites and Sips,Alternate Liquids/Solids Plan Pt/Guardian verbally ack understanding Yes of dx/prognosis/goals G -code Required No Speech & Language HPI Language Primary Language Turkmen General Information General Current Food Consistancy Mechanical Soft,Chopped Meats, Thin Liquids Dentition Edentulous Oxygen Status Room Air Patient Orientation Person,Place,Time Ability to Follow Directions Fair Communication Ability Moderate Impairment Dysphagia:Food Presentation Evaluation Food Type Pureed,Mechanical Soft,Liquid, Pudding Dysphagia Evaluation Summary Citlali reports that she is having difficulty with slurred speech this morning. Her speech was slurred during evaluation. She does not have her dentures anymore which makes it difficult to masticate food during meals. She was given the following consistencies: thins via straw and open cup, pudding, pureed , and mechanical soft. No signs of dysphagia were noted. At this time, it is recommended she remain on mechanical soft diet with chopped meats with sauce. She will be monitored for diet upgrades. Stroke Dysphagia Assessment
[2019-10-25 17:34] LABS: POC Glucose,Bedside 183 (70-110)
--- NOTE | 2019-10-25 18:13 | PC.NURSE ---
pt has cont.to have intermittent emotional episodes. Arianna, her niece, called for information. I asked pt if she was allowed to have information and pt stated no, with Anna Fishman RN present in room, pt asked to speak with Arianna, they had an argument over not allowing family member to have information. staff was able to call pt down. pt is currently resting.
--- NOTE | 2019-10-25 18:53 | PC.NURSE ---
all care and charting done under Lynette Rojo RN
--- NOTE | 2019-10-25 19:11 | PC.NURSE ---
report given to elva
[2019-10-25 21:07] LABS: POC Glucose,Bedside 223 (70-110)
[2019-10-26 03:39] VITALS: BP 182/74; PULSE 71; RESP 18; TEMP 36.8; O2SAT 94
[2019-10-26 05:00] VITALS: BMI 24.4
[2019-10-26 06:03] LABS: POC Glucose,Bedside 244 (70-110)
[2019-10-26 07:22] VITALS: BP 159/70; PULSE 73; RESP 20; TEMP 36.7; O2SAT 96
--- NOTE | 2019-10-26 08:13 | P.PN_ITS ---
Subjective Date: 10/26/19 Time: 08:14 Principal diagnosis: Dehydration, elevated troponins Interval history: 54 yo WF in bed in NAD. Feeling much better with no complaints this AM. 2011 [facility] reviewed with only mild CAD noted. BP has improved and now elevated. Echo shows LVEF of 55% without significant valve disease. Exam Vital signs and Labs for Last 24 Hours: Temp Pulse Resp BP Pulse Ox 98.1 F 73 20 159/70 H 96 10/26/19 07:22 10/26/19 07:22 10/26/19 07:22 10/26/19 07:22 10/26/19 07:22 Laboratory Results - last 24 hr 10/25/19 06:55: Total Counted 100, Neutrophils % (Manual) 43, Lymphocytes % (Manual) 50, Monocytes % (Manual) 5, Eosinophils % (Manual) 2, Platelet Estimate Slight decrease, RBC Morphology Normal 10/25/19 11:42: POC Glucose 148 H 10/25/19 17:24: POC Glucose 183 H 10/25/19 20:44: POC Glucose 223 H 10/26/19 05:56: POC Glucose 244 H I & O for Last 24 hours: Intake & Output 10/23/19 10/24/19 10/25/19 10/26/19 11:59 11:59 11:59 11:59 Intake Total 1000 / 1000 6617 / 6617 2202 / 2202 1705 / 1705 Output Total 750 / 750 4450 / 4450 2550 / 2550 1000 / 1000 Balance 250 / 250 2167 / 2167 -348 / -348 705 / 705 Weight 136 lb 2 oz 143 lb 9 oz 144 lb 3 oz 152 lb 3 oz - *Routine HEENT Exam Head: Present: normocephalic Eye: Present: EOMI, PERRL ENT: Present: mucous membranes moist - *Routine Respiratory Exam Present: CTA bilaterally. Absent: accessory muscle use, rales, rhonchi, wheezes - *Routine Cardiovascular Exam Present: RRR. Absent: murmur, gallop, rubs - *Routine Extremities Exam Absent: edema, calf tenderness - *Routine Neurological Exam Present: alert, oriented X3, moving all extremities Progress Note: A&P (1) Intractable vomiting Status: Acute Current Visit: Yes (2) Dehydration Status: Acute Current Visit: Yes (3) Acute kidney injury Status: Acute Current Visit: Yes (4) Pancreatitis Status: Acute Current Visit: Yes (5) Type 2 diabetes mellitus Status: Acute Current Visit: Yes (6) Chronic mixed headache syndrome Status: Acute Current Visit: Yes (7) Hypertension Status: Acute Current Visit: No (8) Tardive dyskinesia Status: Acute Current Visit: No (9) History of CVA (cerebrovascular accident) Status: Acute Current Visit: Yes (10) Elevated troponin Status: Acute Current Visit: Yes Assessment and Plan for All Diagnoses:: 1. Cardiac status stable. No further evaluation needed at this time. Follow up in 2-3 wks. 2. HTN, resume home meds (lisinopril and amlodipine). Will not use verapamil due to interaction with tizanidine. 3. N/V/Dehydration resolved.
--- NOTE | 2019-10-26 08:22 | HMH.ACPN2 ---
<Tianna Pérez - Last Filed: 10/26/19 08:22> Internal Medicine - PN: Subj *Date: 10/26/19 *Time: 08:22 Interval history: Patient states she is better today. She did not sleep during the night but did sleep good part of yesterday. Her headache is better. She did have 3 diarrhea stools during the night. She denies nausea, vomiting and abdominal pain. She is eating without problems. Her breathing is good. The midsternal chest discomfort has resolved. She has ambulated to the bathroom with help. Cardiology report reviewed. No further evaluation needed at this time with follow-up in 2 to 3 weeks. To continue with lisinopril and amlodipine. Exam Vital signs and Labs for Last 24 Hours: Temp Pulse Resp BP Pulse Ox 98.1 F 73 20 159/70 H 96 10/26/19 07:22 10/26/19 07:22 10/26/19 07:22 10/26/19 07:22 10/26/19 07:22 Laboratory Results - last 24 hr 10/25/19 06:55: Total Counted 100, Neutrophils % (Manual) 43, Lymphocytes % (Manual) 50, Monocytes % (Manual) 5, Eosinophils % (Manual) 2, Platelet Estimate Slight decrease, RBC Morphology Normal 10/25/19 11:42: POC Glucose 148 H 10/25/19 17:24: POC Glucose 183 H 10/25/19 20:44: POC Glucose 223 H 10/26/19 05:56: POC Glucose 244 H I & O for Last 24 hours: Intake & Output 10/23/19 10/24/19 10/25/19 10/26/19 11:59 11:59 11:59 11:59 Intake Total 1000 / 1000 6617 / 6617 2202 / 2202 1705 / 1705 Output Total 750 / 750 4450 / 4450 2550 / 2550 1000 / 1000 Balance 250 / 250 2167 / 2167 -348 / -348 705 / 705 Weight 136 lb 2 oz 143 lb 9 oz 144 lb 3 oz 152 lb 3 oz Radiology Reports for the Last 24 Hours: 10/25/2019 carotid ultrasound Conclusion Study suggests less than 20% stenosis of the right internal cartoid artery unchanged from 05/18/19 study. study suggests less than 20% stenosis of the left internal cartoid artery unchanged from 05/18/19 study. Antegrade flow seen bilateral vertebral arteries. Enlarged thyroid gland with bilateral nodules. Consider dedicated thyroid ultrasound - Constitutional no acute distress Comments: Appears comfortable and is eating her breakfast. - *Routine Respiratory Exam Present: CTA bilaterally (Anteriorly and posteriorly) - *Routine Cardiovascular Exam Present: RRR - *Routine Abdominal Exam Present: soft, normoactive bowel sounds. Absent: tenderness - *Routine Extremities Exam Absent: edema, calf tenderness - *Routine Neurological Exam Present: alert, oriented X3 - Routine Psychiatric Exam Comments: Tearful when talks about family and friends Assessment and Plan (1) Intractable vomiting Current visit: Yes Status: Acute Category: Medical Code(s): R11.10 - Vomiting, unspecified (2) Dehydration Current visit: Yes Status: Acute Category: Medical Code(s): E86.0 - Dehydration (3) Acute kidney injury Current visit: Yes Status: Acute Category: Medical Code(s): N17.9 - Acute kidney failure, unspecified (4) Pancreatitis Current visit: Yes Status: Acute Category: Medical Code(s): K85.90 - Acute pancreatitis without necrosis or infection, unspecified (5) Type 2 diabetes mellitus Current visit: Yes Status: Acute Category: Medical Code(s): E11.9 - Type 2 diabetes mellitus without complications (6) Chronic mixed headache syndrome Current visit: Yes Status: Acute Category: Medical Code(s): G44.89 - Other headache syndrome (7) Hypertension Current visit: No Status: Acute Category: Medical Code(s): I10 - Essential (primary) hypertension (8) Tardive dyskinesia Current visit: No Status: Acute Category: Medical Code(s): G24.01 - Drug induced subacute dyskinesia (9) History of CVA (cerebrovascular accident) Current visit: Yes Status: Acute Category: Medical Code(s): Z86.73 - Personal history of transient ischemic attack (TIA), and cerebral infarction without residual deficits (10) Elevated troponin Current visit: Yes Status: Acute
--- NOTE | 2019-10-26 08:44 | HMH.DCSUM ---
General - General Admission date:: 10/23/19 <Vasu Gutierres - 11/18/19 16:47> 10/23/19 <BetoTianna - 10/26/19 09:14> Discharge date: 10/26/19 <BetoTianna - 10/26/19 09:14> HPI HPI: Dang is a 54-year-old white female with a history of hypertension, type 2 diabetes mellitus, chronic headache syndrome, and previous stroke who presented to the emergency room by ambulance with a 10-day history of persistent vomiting and diarrhea. She was also complaining of chest pain. She was worked up in the emergency room with findings of markedly elevated BUN and creatinine consistent with prerenal azotemia/dehydration. Lipase was mildly elevated. CT of head and abdomen and her chest x-ray showed nothing acute. She was started on IV fluids and given a GI cocktail and Pepcid for her chest pain which improved. She was subsequently admitted for further treatment with IV hydration and antiemetics. After admission to the floor, she had no further vomiting. She was tolerating liquids. She reported some heartburn but no abdominal pain. She Stated that she had not had a bowel movement for about 3 days. <BetoTianna - 10/26/19 09:14> Hospital Course Hospital Course: On admission patient was noted to have mildly elevated pancreatic enzymes with no findings of acute pancreatitis on her CT scan. She was started on normal saline for hydration. Renal function did improve day by day. She was a little hypotensive after admission which was corrected with the IV fluids. She also did have some mildly elevated troponins throughout the night after admission. Cardiology was consulted. She did complain of midsternal chest pain which seemed to be more consistent with esophagitis and reflux although she was noted to have risk factors for coronary artery disease. Diet was initially advanced while continuing IV hydration and monitoring of her renal function and electrolytes. By 10/24/2019 she was tolerating a full liquid diet with no vomiting. She did have some nausea and frequent heartburn. She had no further bowel movements and no abdominal pain. On this date her creatinine had improved to 1.2 but BUN remained elevated; pancreatic enzymes were normal. Diet was advanced. IV fluids were decreased to 125 cc/h. Patient was evaluated by cardiology with notation of normal sinus rhythm on EKG with no acute ST-T segment changes. Echocardiogram revealed a left ventricular ejection fraction of 55% without significant valvular disease. Cardiac status was felt to be stable with no further evaluation during this admission,but with follow-up in 2 to 3 weeks. Recommendation was for her to resume home medicines of lisinopril and amlodipine. Recommended not to use verapamil due to interaction with tizanidine. On 10/24 patient was tearful and had speech difficulties. This did improve the same a.m. She was noted to be upset and cried most of this day due to family discord. It was noted that she had not had her Pristiq since admission. This was not available on formulary and she did not have her home meds with her. Venlafaxine was initiated. By the a.m. of 10/26/2019 patient was feeling much better. Speech had returned to normal. She was able to eat and drink without difficulty. She had no further nausea or vomiting although she did have 3 diarrhea stools throughout the night. Her midsternal chest discomfort had resolved. Renal function had returned to normal. CBC was pretty much normal. She was voiding without difficulty. She was able to ambulate to the bathroom without problems. On this date she was felt to be stable to be discharged home. Discharged home in stable and satisfactory condition. To continue with same diet and activity level. Follow-up with Dr. Gutierres in 2 weeks. Medications as per medication reconciliation list. <BetoTianna - 10/26/19 09:14> Objective Vital signs: Temp Pulse Resp BP Pulse Ox 98.2 F 67 20 147
--- NOTE | 2019-10-26 10:42 | HMH.PHAINT ---
DISCHARGE COUNSELING COMPLETE. SPOKE WITH PATIENT REGARDING THE ADDITION OF OMEPRAZOLE TO HER REGIMEN. PATIENT ENDORSED NO QUESTIONS AT THIS TIME.
[2019-10-26 11:14] VITALS: BP 147/81; PULSE 67; RESP 20; TEMP 36.8; O2SAT 96
[2019-10-26 11:25] LABS: POC Glucose,Bedside 147 (70-110)
== END 2019-10-26 16:15 | disposition home or self-care (01) | DRG 640 ==
LOC: ER 21:38 → 2ND 22:53
PROVIDERS: Family Medicine; Admitting Provider Family Medicine; Emergency Provider Emergency Medicine; PCP Family Medicine; Visit Provider Family Medicine
DX: E86.0 Dehydration (principal); K85.90 Acute pancreatitis without necrosis or infection, unspecified; N17.9 Acute kidney failure, unspecified; I69.351 Hemiplegia and hemiparesis following cerebral infarction affecting right dominant side; E11.9 Type 2 diabetes mellitus without complications; Z79.4 Long term (current) use of insulin; G44.89 Other headache syndrome; G24.01 Drug induced subacute dyskinesia; Z79.51 Long term (current) use of inhaled steroids; Z79.899 Other long term (current) drug therapy; Z88.0 Allergy status to penicillin; Z88.1 Allergy status to other antibiotic agents; Z88.2 Allergy status to sulfonamides; Z88.8 Allergy status to other drugs, medicaments and biological substances; J44.9 Chronic obstructive pulmonary disease, unspecified; Z87.891 Personal history of nicotine dependence; I69.322 Dysarthria following cerebral infarction; Z86.011 Personal history of benign neoplasm of the brain; F15.11 Other stimulant abuse, in remission
CPT/HCPCS: 36415; 70450; 71045; 74176; 80048; 80053; 80305; 81001; 82150; 82962; 83690; 84484; 85007; 85025; 90686; 90732; 92610; 93005; 93306; 93880; 96365; 96375; 99284; G0378; J0595

== ENCOUNTER 2020-01-26 17:35 | Emergency (ER) | payer MEDICARE, MEDICAID, SELFPAY ==
[2020-01-26 17:37] VITALS: BP 158/112; PULSE 97; RESP 16; TEMP 36.9; O2SAT 98; BMI 24.8
--- NOTE | 2020-01-26 18:59 | HMH.EDHA ---
ED Disposition Clinical Impression: Migraine Qualifiers: Migraine type: with aura Status migrainosus presence: without status migrainosus Intractability: not intractable Qualified Code(s): G43.109 - Migraine with aura, not intractable, without status migrainosus Disposition: Home, Self-Care Condition on Discharge: Good Instructions: DI for Migraine Additional Instructions: call pcp for follow up Referrals: Maru Swann MD [Primary Care Provider] - - Critical Care Critical Care Time: No Attestation: On 01/26/20, the high probability of a clinically significant, sudden or life threatening deterioration of the following system(s) required my full and direct attention, intervention and personal management. The time I documented below is in addition to time spent performing reported procedures but includes the following listed in this critical care notation. Medical Decision Making - Medical Records Medical records reviewed: Yes: I reviewed the patient's medical records. - Corey Inquiry Pt receiving controlled substance: No Vital Signs: 01/26/20 17:37 01/26/20 19:00 01/26/20 19:30 Temperature 98.5 F Temperature Source Oral Pulse Rate [Left Brachial] 97 H 76 74 Respiratory Rate 16 18 18 Blood Pressure [Right Arm] 158/112 H 162/102 H 155/93 H Blood Pressure Mean [Right Arm] 127 122 113 Blood Pressure Source [Right Arm] Automatic Cuff Automatic Cuff Blood Pressure Position [Right Arm] Sitting Supine Supine 02 Sat by Pulse Oximetry 98 95 99 Oxygen Delivery Method Room Air Room Air Room Air - Lab Data Lab results reviewed: Yes: I reviewed the patient's lab results. Lab Results 01/26/20 18:56: WBC 7.6, RBC 4.01 L, Hgb 12.6, Hct 37.3, MCV 93.0, MCH 31.4 H, MCHC 33.8, RDW 13.7, Plt Count 236, MPV 7.8, Neut % (Auto) 48.8, Lymph % (Auto) 44.9, [place] % (Auto) 4.7, Eos % (Auto) 1.1, Baso % (Auto) 0.5, Neut # (Auto) 3.7, Lymph # (Auto) 3.4, [place] # (Auto) 0.4, Eos # (Auto) 0.1, Baso # (Auto) 0.0 01/26/20 18:56: Sodium 137, Potassium 4.2, Chloride 103, Carbon Dioxide 29, Anion Gap 9.2, BUN 23 H, Creatinine 0.90, Estimated Creat Clear 77, Estimated GFR 65, Est GFR ( Amer) 78, Glucose 150 H, Calcium 9.4 Result diagrams: 01/26/20 18:56 01/26/20 18:56 Orders (Tests/Meds): ED MEDICATIONS Generic Name Dose Route Start Last Admin Trade Name Audi PRN Reason Stop Dose Admin Sodium Chloride 1,000 mls @ 999 mls/hr 01/26/20 18:45 01/26/20 19:15 Sod Chlor 0.9% 1000ml Bag IV 01/26/20 19:45 999 mls/hr .Q1H1M ZANDER Administration ORDERS Category Date Time Status CT head/brain wo con Stat Cat Scan 01/26/20 19:03 Taken - CT Data CT Scan: Head Time Received: 20:[address] Reviewed: Yes: I have viewed the radiologist's interpretation Preliminary Findings: Normal/NAD Headache HPI - General Chief Complaint: Headache Stated Complaint: migraine Time Seen by Provider: 01/26/20 19:00 Mode of Arrival: Ambulatory Source of Information: Patient, Medical Record Limitations: No Limitations Description of Symptoms (Recalled from ER Triage Doc. by RN): to ed per pvt car with c/o migraine h/a pt with hx of same states this feels like her migraines pt c/o nausea, vomiting, photophobia. pt states went to pcp's office and sent to ed for eval - History of Present Illness HPI Narrative: acute excerbation of migraine shen - no focal signs and no trauma/rash or fever MD Complaint: migraine Onset (ago): hour(s) Onset description: gradual Severity: moderate Quality: different than previous headaches Exacerbating factors: light, noise Context: occurred at rest Associated symptoms: none Treatments prior to arrival: prescription analgesic, antiemetic - Related Data Home Medications Medication Instructions Recorded Confirmed Cholecalciferol (Vitamin D3) 5,000 unit PO DAILY 07/25/17 10/22/19 [Vitamin D3] Desvenlafaxine Succinate [Pristiq] 50 mg PO HS 07/25/17 10/22/19 Promethazine HCl [Phene
[2020-01-26 19:00] VITALS: BP 162/102; PULSE 76; RESP 18; O2SAT 95
--- NOTE | 2020-01-26 19:03 | CT_ITS ---
PROCEDURE: CT HEAD/BRAIN WO CON CLINICAL INDICATION: worsening head pain Severe headache COMPARISON: CT HEAD/BRAIN WO CON from 10/22/2019 TECHNIQUE: Axial images obtained. All CT scans at the facility use one or more dose reduction, viz: automated exposure control, ma/kV adjustment per patient size (including targeted exams where dose is matched to indication, i.e. head), or iterative reconstruction technique. FINDINGS: There has been a prior suboccipital craniotomy with encephalomalacia change noted in the right cerebellar hemisphere. No midline shift, mass effect, intracranial hemorrhage, or hydrocephalus is evident. There are encephalomalacia changes also in the left parietal lobe. There has been prior left-sided craniotomy. No mastoid effusion or sinus air-fluid level IMPRESSION: No acute intracranial finding Dictated by: Tom Beaulieu MD 01/27/2020 09:23 Electronically signed by Tom Beaulieu MD in [facility] 01/27/2020 09:23
[2020-01-26 19:11] LABS: Basophils % 0.5 % (0.1-2.0); Eosinophils # 0.1 K/mm3 (0.0-0.4); Eosinophils % 1.1 % (0.1-12.0); Hematocrit 37.3 % (37.0-47.0); Hemoglobin 12.6 g/dL (12.2-16.2); Lymphocytes # 3.4 K/mm3 (0.7-4.5); Lymphocytes % 44.9 % (10-50); Mean Corpuscular HGB Conc 33.8 g/dL (31.8-35.4); Mean Corpuscular Hemoglobin 31.4 pg (27.0-31.2); Mean Platelet Volume 7.8 fl (7.4-10.4); Monocytes # 0.4 K/mm3 (0.1-1.0); Monocytes % 4.7 % (1.7-9.3); Neutrophils # 3.7 K/mm3 (1.8-7.8); Neutrophils % 48.8 % (37.0-80.0); Platelet Count 236 K/mm3 (142-424); Red Blood Count 4.01 M/mm3 (4.20-5.40); Red Cell Distribution Width 13.7 % (11.5-17.5); White Blood Count 7.6 K/mm3 (4.8-10.8)
[2020-01-26 19:12] LABS: Chloride 103 mmol/L (98-107); Potassium 4.2 mmoL/L (3.5-5.1); Sodium 137 mmol/L (136-145)
[2020-01-26 19:15] LABS: Anion Gap 9.2 mEq/L (5-15); Blood Urea Nitrogen 23 mg/dl (7-17); Calcium 9.4 mg/dl (8.4-10.2); Carbon Dioxide 29 mmol/L (22.0-30.0); Creatinine Clearance Estimated 77 mL/min (50-200); Estimated Glomerular Filt Rate 65 ml/min (>60); GFR (African American) 78 ML/MIN (>60); Glucose 150 mg/dl (74-100)
[2020-01-26 19:30] VITALS: BP 155/93; PULSE 74; RESP 18; O2SAT 99
[2020-01-26 20:00] VITALS: BP 181/92; PULSE 72; RESP 16; O2SAT 99
[2020-01-26 20:59] VITALS: BP 161/101; PULSE 78; RESP 16; TEMP 36.8; O2SAT 99
== END 2020-01-26 20:59 | disposition home or self-care (01) ==
PROVIDERS: Emergency Provider Emergency Medicine; PCP Family Medicine
DX: G43.109 Migraine with aura, not intractable, without status migrainosus (principal); E11.9 Type 2 diabetes mellitus without complications; Z79.4 Long term (current) use of insulin; Z79.84 Long term (current) use of oral hypoglycemic drugs; Z86.73 Personal history of transient ischemic attack (TIA), and cerebral infarction without residual deficits; I10 Essential (primary) hypertension; E78.5 Hyperlipidemia, unspecified; F41.8 Other specified anxiety disorders; J44.9 Chronic obstructive pulmonary disease, unspecified; Z79.899 Other long term (current) drug therapy; Z88.0 Allergy status to penicillin; Z88.2 Allergy status to sulfonamides; Z88.8 Allergy status to other drugs, medicaments and biological substances; F17.210 Nicotine dependence, cigarettes, uncomplicated
CPT/HCPCS: 70450; 80048; 85025; 96365; 96375; 99283; J0595

== ENCOUNTER 2020-03-25 13:23 | Emergency (ER) | payer MEDICARE, MEDICAID, SELFPAY ==
--- NOTE | 2020-03-25 13:19 | ECG_ITS ---
APPROVED REPORT Exam: Resting ECG HR:104 bpm ECG Measurements Heart Rate 104 AXES WA 144 P 38 QRSd 84 QRS 52 QT 346 T 57 QTc 454 <Conclusion> Sinus tachycardia Incomplete RBBB Otherwise normal ECG Electronically signed by : Rahul Mendez, 03/28/2020 12:39:19
[2020-03-25 13:23] VITALS: BP 151/97; PULSE 96; RESP 17; TEMP 36.8; O2SAT 100; BMI 29.2
--- NOTE | 2020-03-25 13:45 | XR_ITS ---
PROCEDURE: XR CHEST PORTABLE CLINICAL HISTORY: chest pain COMPARISON: CR XR CHEST 2V from 05/18/2019 CR XR CHEST 2V from 07/17/2019 CR XR CHEST PORTABLE from 10/22/2019 FINDINGS: The cardiomediastinal silhouette and pulmonary vascularity are within normal limits. The lungs are clear without infiltrates, suspicious nodules, or pleural effusions. No acute bony abnormalities. IMPRESSION: No acute findings. Dictated by: Tom Beaulieu MD 03/25/2020 14:54 Tom Beaulieu MD in [facility] 03/25/2020 14:54
[2020-03-25 14:08] LABS: Basophils # 0.1 K/mm3 (0-0.2); Basophils % 0.7 % (0.1-2.0); Eosinophils % 0.3 % (0.1-12.0); Hematocrit 39.4 % (37.0-47.0); Hemoglobin 13.4 g/dL (12.2-16.2); Lymphocytes # 2.9 K/mm3 (0.7-4.5); Lymphocytes % 26.9 % (10-50); Mean Corpuscular Volume 91.1 fl (81-99); Mean Platelet Volume 8.3 fl (7.4-10.4); Monocytes # 0.5 K/mm3 (0.1-1.0); Monocytes % 4.7 % (1.7-9.3); Neutrophils # 7.2 K/mm3 (1.8-7.8); Neutrophils % 67.3 % (37.0-80.0); Platelet Count 290 K/mm3 (142-424); Red Blood Count 4.33 M/mm3 (4.20-5.40); Red Cell Distribution Width 13.3 % (11.5-17.5); White Blood Count 10.7 K/mm3 (4.8-10.8)
--- NOTE | 2020-03-25 14:12 | HMH.EDCP ---
ED Disposition Clinical Impression: Dehydration, Amphetamine abuse Chest pain Qualifiers: Chest pain type: unspecified Qualified Code(s): R07.9 - Chest pain, unspecified Disposition: Home, Self-Care Condition on Discharge: Fair Instructions: DI for Dehydration -- Adult, DI for Atypical Chest Pain Referrals: PCP,No [Primary Care Provider] - 3 days - Critical Care Critical Care Time: No Attestation: On 03/25/20, the high probability of a clinically significant, sudden or life threatening deterioration of the following system(s) required my full and direct attention, intervention and personal management. The time I documented below is in addition to time spent performing reported procedures but includes the following listed in this critical care notation. Medical Decision Making - Medical Records Medical records reviewed: Yes: I reviewed the patient's medical records. - Corey Inquiry Pt receiving controlled substance: No Vital Signs: 03/25/20 13:23 Temperature 98.2 F Temperature Source Oral Pulse Rate [Right] 96 H Respiratory Rate 17 Blood Pressure [Right Arm] 151/97 H Blood Pressure Mean [Right Arm] 115 02 Sat by Pulse Oximetry 100 - Lab Data Lab results reviewed: Yes: I reviewed the patient's lab results. Lab Results 03/25/20 13:56: Troponin I 0.04 H 03/25/20 13:56: WBC 10.7, RBC 4.33, Hgb 13.4, Hct 39.4, MCV 91.1, MCH 31.0, MCHC 34.0, RDW 13.3, Plt Count 290, MPV 8.3, Neut % (Auto) 67.3, Lymph % (Auto) 26.9, [place] % (Auto) 4.7, Eos % (Auto) 0.3, Baso % (Auto) 0.7, Neut # (Auto) 7.2, Lymph # (Auto) 2.9, [place] # (Auto) 0.5, Eos # (Auto) 0.0, Baso # (Auto) 0.1 03/25/20 13:56: PT 11.0, INR 1.08, APTT 22.3 L 03/25/20 13:56: Sodium 140, Potassium 4.6, Chloride 104, Carbon Dioxide 11 L, Anion Gap 29.6 H, BUN 34 H, Creatinine 1.10 H, Estimated Creat Clear 65, Estimated GFR 51 L, Est GFR ( Amer) 62, Glucose 143 H, Calcium 10.8 H, Total Bilirubin 1.3, AST 80 H, ALT 42, Alkaline Phosphatase 101, Total Protein 7.5, Albumin 4.5, Globulin 3.0, Albumin/Globulin Ratio 1.5 03/25/20 13:56: Lipase 120 03/25/20 13:56: Plasma/Serum Alcohol < 10 03/25/20 14:32: Urine Color Yellow, Urine Appearance Clear, Urine pH 5.5, Ur Specific [place] >= 1.030, Urine Protein Trace, Urine Glucose (UA) Negative, Urine Ketones 3+, Urine Blood 2+, Urine Nitrate Negative, Urine Bilirubin Negative, Urine Urobilinogen 0.2, Ur Leukocyte Esterase Negative, Urine RBC Occasional, Urine WBC 3-5, Ur Squamous Epith Cells 5-10, Amorphous Sediment 1+, Urine Bacteria None, Hyaline Casts Occasional 03/25/20 14:32: Urine Opiates Screen Negative, Urine Methadone Screen Negative, Ur Barbituates Screen Negative, Ur Phencyclidine Scrn Negative, Ur Amphetamines Screen TNP, U Benzodiazepines Scrn Negative, Urine Cocaine Screen Negative, U Marijuana (THC) Screen Negative 03/25/20 16:45: Troponin I 0.04 H Result diagrams: 03/25/20 13:56 03/25/20 13:56 Orders (Tests/Meds): ED MEDICATIONS Discontinued Medications Generic Name Dose Route Start Last Admin Trade Name Freq PRN Reason Stop Dose Admin Aspirin 324 mg 03/25/20 13:45 03/25/20 14:05 Aspirin 81mg Chewable Tablet PO 03/25/20 13:46 324 mg ONCE ONE Administration Sodium Chloride 1,000 mls @ 999 mls/hr 03/25/20 14:45 03/25/20 14:58 Sod Chlor 0.9% 1000ml Bag IV 03/25/20 15:45 999 mls/hr .Q1H1M ZANDER Administration Sodium Chloride 1,000 mls @ 999 mls/hr 03/25/20 14:45 03/25/20 14:58 Sod Chlor 0.9% 1000ml Bag IV 03/25/20 15:45 999 mls/hr .Q1H1M ZANDER Administration ORDERS Category Date Time Status Troponin I Q3H Lab 03/25/20 19:45 Ordered - Radiology Data #1 Image(s): Chest Image Reviewed: Yes I reviewed the patient's radiology results Preliminary Findings: Normal/NAD - ECG Data Tracing #1 EKG at 1319 shows sinus tachycardia with a rate of 104. Normal SD, QRS, QTc. No STEMI. EKG interpreted by me. Medical Decision Narrative: Patient
[2020-03-25 14:13] LABS: Chloride 104 mmol/L (98-107); Sodium 140 mmol/L (136-145)
[2020-03-25 14:14] LABS: Potassium 4.6 mmoL/L (3.5-5.1)
[2020-03-25 14:16] LABS: Alanine Aminotransferase 42 U/L (12-78); Albumin Level 4.5 g/dl (3.5-5.0); Albumin/Globulin Ratio 1.5 (1.1-1.8); Alkaline Phosphatase 101 U/L (38-126); Anion Gap 29.6 mEq/L (5-15); Aspartate Amino Transferase 80 U/L (14-36); Bilirubin,Total 1.3 mg/dl (0.2-1.3); Blood Urea Nitrogen 34 mg/dl (7-17); Carbon Dioxide 11 mmol/L (22.0-30.0); Creatinine Clearance Estimated 65 mL/min (50-200); Estimated Glomerular Filt Rate 51 ml/min (>60); GFR (African American) 62 ML/MIN (>60); Total Protein,Serum 7.5 g/dl (6.3-8.2)
[2020-03-25 14:17] LABS: Calcium 10.8 mg/dl (8.4-10.2); Glucose 143 mg/dl (74-100)
[2020-03-25 14:19] LABS: Activated Partial Thrombo Time 22.3 seconds (23.6-34.0); INR 1.08 (0.9-1.1)
[2020-03-25 14:20] LABS: Lipase 120 U/L (23-300)
[2020-03-25 14:28] LABS: Troponin I 0.04 ng/ml (0.00-0.034)
[2020-03-25 14:46] LABS: Microscopic, Urine URINE MICROSCOPIC (MICROSCOPIC)
[2020-03-25 14:50] LABS: Appearance,Urine CLEAR (Clear); Blood, Urine 2+ (Negative); Color,Urine YELLOW (Yellow); Glucose,Urine (UA) Negative (Negative); Ketones,Urine 3+ (Negative); Leukocyte Esterase,Urine Negative (Negative); Nitrate,Urine Negative (Negative); PH,Urine 5.5 (5.0-8.5); Protein,Urine TRACE (Negative); Specific Gravity, Urine >= 1.030 (1.005-1.030); Urobilinogen,Urine 0.2 EU/dl (0.2)
[2020-03-25 14:56] LABS: Bilirubin,Urine Negative (Negative)
[2020-03-25 14:57] LABS: Ethyl Alcohol < 10 mg/dl (0-10)
[2020-03-25 14:58] LABS: Amorphous Sediment,Urine 1+ /lpf; RBC,Urine Occasional #/hpf (0-3)
[2020-03-25 14:59] LABS: Hyaline Casts,Urine Occasional #/lpf (0)
[2020-03-25 15:02] LABS: Benzodiazepines Screen,Urine Negative ng/ml (<200)
[2020-03-25 15:03] LABS: Barbiturates Screen,Urine Negative ng/ml (<200)
[2020-03-25 15:04] LABS: Cannabinoid Screen,Urine Negative ng/ml (<50)
[2020-03-25 15:05] LABS: Cocaine Screen,Urine Negative ng/ml (<300); Methadone Screen,Urine Negative ng/ml (<300)
[2020-03-25 15:06] LABS: Opiate Screen,Urine Negative ng/ml (<300)
[2020-03-25 15:07] LABS: Phencyclidine Screen,Urine Negative ng/ml (<25)
[2020-03-25 17:33] LABS: Troponin I 0.04 ng/ml (0.00-0.034)
[2020-03-25 18:49] VITALS: BP 124/85; PULSE 80; RESP 18; TEMP 36.8; O2SAT 100
[2020-03-29 11:12] LABS: Amphetamine Positive (.); Amphetamines Positive (.); Methamphetamine Positive (.)
[2020-03-29 13:14] LABS: Amphetamine (GC/MS) 648 ng/mL (Cutoff=500); Methamphetamine (GC/MS) 4818 ng/mL (Cutoff=500)
== END 2020-03-25 18:49 | disposition home or self-care (01) ==
PROVIDERS: Emergency Provider Emergency Medicine
DX: E86.0 Dehydration (principal); F15.10 Other stimulant abuse, uncomplicated; G24.01 Drug induced subacute dyskinesia; R07.9 Chest pain, unspecified; F41.8 Other specified anxiety disorders; I10 Essential (primary) hypertension; E78.5 Hyperlipidemia, unspecified; J44.9 Chronic obstructive pulmonary disease, unspecified; E11.9 Type 2 diabetes mellitus without complications; Z86.73 Personal history of transient ischemic attack (TIA), and cerebral infarction without residual deficits; G43.709 Chronic migraine without aura, not intractable, without status migrainosus; F17.210 Nicotine dependence, cigarettes, uncomplicated; Z79.899 Other long term (current) drug therapy; Z88.0 Allergy status to penicillin; Z88.2 Allergy status to sulfonamides; Z88.8 Allergy status to other drugs, medicaments and biological substances
CPT/HCPCS: 36415; 71045; 80053; 80305; 80324; 81001; 83690; 84484; 85025; 85610; 85730; 93005; 96365; 96366; 99283

== ENCOUNTER 2020-04-26 19:41 | Emergency (ER) | payer MEDICARE, MEDICAID, SELFPAY ==
[2020-04-26] VITALS (8 sets, daily range): BP systolic 124–191; BP diastolic 77–102; PULSE 67–100; RESP 16–18; TEMP 36.4; O2SAT 95–99; BMI 25.8
--- NOTE | 2020-04-26 19:53 | CT_ITS ---
PROCEDURE: CT HEAD/BRAIN WO CON CLINICAL INDICATION: LOC Altered mental status, altered level of consciousness, confusion, disorientation COMPARISON: CT CT HEAD/BRAIN WO CON from 01/26/2020 TECHNIQUE: Axial images obtained. All CT scans at the facility use one or more dose reduction, viz: automated exposure control, ma/kV adjustment per patient size (including targeted exams where dose is matched to indication, i.e. head), or iterative reconstruction technique. FINDINGS: No midline shift, mass effect, intracranial hemorrhage, hydrocephalus, or extra-axial fluid collection is evident. Postsurgical changes with craniotomy in the left parietal area with underlying encephalomalacia change in the left parietotemporal region. Encephalomalacia changes are present in the right cerebellum unchanged this is not significantly changed. The calvarium has an unremarkable appearance. No mastoid effusion. No sinus air-fluid level. IMPRESSION: No change with no acute finding. Dictated by: Tom Beaulieu MD 04/27/2020 07:14 Tom Beaulieu MD in [facility] 04/27/2020 07:14
--- NOTE | 2020-04-26 20:11 | PC.NURSE ---
Pt. to CT scanner via stretcher with CT radiology personell
[2020-04-26 20:35] LABS: Benzodiazepines Screen,Urine Negative ng/ml (<200)
--- NOTE | 2020-04-26 20:35 | HMH.EDAMS ---
ED Disposition Clinical Impression: Amphetamine abuse Disposition: Home, Self-Care Condition on Discharge: Fair Instructions: DI for Drug Abuse and Drug Addiction Additional Instructions: see pcp for follow up Referrals: Vasu Gutierres MD [Primary Care Provider] - - Critical Care Critical Care Time: No Attestation: On 04/26/20, the high probability of a clinically significant, sudden or life threatening deterioration of the following system(s) required my full and direct attention, intervention and personal management. The time I documented below is in addition to time spent performing reported procedures but includes the following listed in this critical care notation. Medical Decision Making - Medical Records Medical records reviewed: Yes: I reviewed the patient's medical records. - Corey Inquiry Pt receiving controlled substance: No Vital Signs: 04/26/20 19:43 04/26/20 20:00 04/26/20 20:30 Temperature 97.5 F L Temperature Source Oral Pulse Rate [Left] 67 100 H 94 H Respiratory Rate 18 17 17 Blood Pressure [Right Arm] 185/102 H 124/81 143/86 H Blood Pressure Mean [Right Arm] 129 95 105 Blood Pressure Source [Right Arm] Automatic Cuff Automatic Cuff Automatic Cuff Blood Pressure Position [Right Arm] Supine Supine Supine 02 Sat by Pulse Oximetry 98 95 95 Oxygen Delivery Method Room Air Room Air Room Air 04/26/20 21:00 04/26/20 21:30 04/26/20 22:00 Temperature Temperature Source Pulse Rate [Left] 90 78 92 H Respiratory Rate 17 17 18 Blood Pressure [Right Arm] 191/91 H 180/91 H 190/98 H Blood Pressure Mean [Right Arm] 124 120 128 Blood Pressure Source [Right Arm] Automatic Cuff Automatic Cuff Automatic Cuff Blood Pressure Position [Right Arm] Supine Supine Supine 02 Sat by Pulse Oximetry 97 98 95 Oxygen Delivery Method Room Air Room Air Room Air - Lab Data Lab results reviewed: Yes: I reviewed the patient's lab results. Lab Results 04/26/20 20:09: Urine Opiates Screen Negative, Urine Methadone Screen Negative, Ur Barbituates Screen Negative, Ur Phencyclidine Scrn Negative, Ur Amphetamines Screen Not Reportable, U Benzodiazepines Scrn Negative, Urine Cocaine Screen Negative, U Marijuana (THC) Screen Negative 04/26/20 20:40: WBC 6.4, RBC 3.93 L, Hgb 12.0 L, Hct 37.1, MCV 94.6, MCH 30.6, MCHC 32.3, RDW 14.5, Plt Count 263, MPV 7.2 L, Neut % (Auto) 68.1, Lymph % (Auto) 25.7, [place] % (Auto) 4.9, Eos % (Auto) 0.5, Baso % (Auto) 0.8, Neut # (Auto) 4.3, Lymph # (Auto) 1.6, [place] # (Auto) 0.3, Eos # (Auto) 0.0, Baso # (Auto) 0.1 04/26/20 20:40: Sodium 141, Potassium 4.1, Chloride 106, Carbon Dioxide 19 L, Anion Gap 20.1 H, BUN 35 H, Creatinine 0.90, Estimated Creat Clear 79, Estimated GFR 65, Est GFR ( Amer) 78, Glucose 88, Calcium 10.9 H, Total Bilirubin 1.2, AST 34, ALT 24, Alkaline Phosphatase 97, Total Protein 7.5, Albumin 4.5, Globulin 3.0, Albumin/Globulin Ratio 1.5 04/26/20 20:40: Plasma/Serum Alcohol < 10 Result diagrams: 04/26/20 20:40 04/26/20 20:40 Orders (Tests/Meds): ED MEDICATIONS Generic Name Dose Route Start Last Admin Trade Name Freq PRN Reason Stop Dose Admin Sodium Chloride 1,000 mls @ 999 mls/hr 04/26/20 20:00 04/26/20 22:00 Sod Chlor 0.9% 1000ml Bag IV 04/26/20 21:00 Not Given .Q1H1M ZANDER Discontinued Medications Generic Name Dose Route Start Last Admin Trade Name Freq PRN Reason Stop Dose Admin Clonidine HCl 0.1 mg 04/26/20 21:54 04/26/20 21:55 Clonidine 0.1mg Tablet PO 04/26/20 21:55 0.1 mg ONCE ONE Administration ORDERS Category Date Time Status CT head/brain wo con Stat Cat Scan 04/26/20 19:53 Taken - CT Data CT Scan: Head Time Received: 22:[address] Reviewed: Yes: I have viewed the radiologist's interpretation Preliminary Findings: Normal/NAD Altered Mental Status HPI - General Chief Complaint: Altered Mental Status Stated Complaint: Meth use Time Seen by Provider: 04/26/20 20:00 Mode of Arriva
[2020-04-26 20:36] LABS: Barbiturates Screen,Urine Negative ng/ml (<200)
[2020-04-26 20:39] LABS: Cannabinoid Screen,Urine Negative ng/ml (<50); Cocaine Screen,Urine Negative ng/ml (<300)
[2020-04-26 20:40] LABS: Methadone Screen,Urine Negative ng/ml (<300)
[2020-04-26 20:41] LABS: Opiate Screen,Urine Negative ng/ml (<300); Phencyclidine Screen,Urine Negative ng/ml (<25)
[2020-04-26 20:50] LABS: Basophils # 0.1 K/mm3 (0-0.2); Basophils % 0.8 % (0.1-2.0); Eosinophils % 0.5 % (0.1-12.0); Hematocrit 37.1 % (37.0-47.0); Lymphocytes # 1.6 K/mm3 (0.7-4.5); Lymphocytes % 25.7 % (10-50); Mean Corpuscular HGB Conc 32.3 g/dL (31.8-35.4); Mean Corpuscular Hemoglobin 30.6 pg (27.0-31.2); Mean Corpuscular Volume 94.6 fl (81-99); Mean Platelet Volume 7.2 fl (7.4-10.4); Monocytes # 0.3 K/mm3 (0.1-1.0); Monocytes % 4.9 % (1.7-9.3); Neutrophils # 4.3 K/mm3 (1.8-7.8); Neutrophils % 68.1 % (37.0-80.0); Platelet Count 263 K/mm3 (142-424); Red Blood Count 3.93 M/mm3 (4.20-5.40); Red Cell Distribution Width 14.5 % (11.5-17.5); White Blood Count 6.4 K/mm3 (4.8-10.8)
[2020-04-26 20:52] LABS: Chloride 106 mmol/L (98-107); Potassium 4.1 mmoL/L (3.5-5.1); Sodium 141 mmol/L (136-145)
[2020-04-26 20:55] LABS: Alanine Aminotransferase 24 U/L (12-78); Albumin Level 4.5 g/dl (3.5-5.0); Albumin/Globulin Ratio 1.5 (1.1-1.8); Alkaline Phosphatase 97 U/L (38-126); Anion Gap 20.1 mEq/L (5-15); Aspartate Amino Transferase 34 U/L (14-36); Bilirubin,Total 1.2 mg/dl (0.2-1.3); Blood Urea Nitrogen 35 mg/dl (7-17); Calcium 10.9 mg/dl (8.4-10.2); Carbon Dioxide 19 mmol/L (22.0-30.0); Creatinine Clearance Estimated 79 mL/min (50-200); Estimated Glomerular Filt Rate 65 ml/min (>60); GFR (African American) 78 ML/MIN (>60); Glucose 88 mg/dl (74-100); Total Protein,Serum 7.5 g/dl (6.3-8.2)
[2020-04-26 21:43] LABS: Ethyl Alcohol < 10 mg/dl (0-10)
--- NOTE | 2020-04-26 23:04 | PC.NURSE ---
son called back and advised he wouldn't be able to get her till about 0100 due to him being at work. he doesn't have his lunch break till then.
--- NOTE | 2020-04-26 23:04 | PC.NURSE ---
tried to call Shayla which is patients friend with no answer.
[2020-04-27] VITALS: BP 162/77; PULSE 72; RESP 17; O2SAT 98
--- NOTE | 2020-04-27 00:49 | PC.NURSE ---
Pt's brother called and he is going to try to leave work to come to hospital and pick pt up and take her home.
[2020-04-27 00:50] VITALS: BP 147/80; PULSE 73; RESP 16; TEMP 36.6; O2SAT 98
[2020-05-02 20:13] LABS: Amphetamine Positive (.); Amphetamines Positive (.); Methamphetamine Positive (.)
[2020-05-04 10:12] LABS: Amphetamine (GC/MS) 3228 ng/mL (Cutoff=500); Methamphetamine (GC/MS) >3000 ng/mL (Cutoff=500)
== END 2020-04-27 00:58 | disposition home or self-care (01) ==
PROVIDERS: Emergency Provider Emergency Medicine; PCP Family Medicine
DX: R41.82 Altered mental status, unspecified (principal); F15.10 Other stimulant abuse, uncomplicated; G44.89 Other headache syndrome; J44.9 Chronic obstructive pulmonary disease, unspecified; F41.8 Other specified anxiety disorders; E11.9 Type 2 diabetes mellitus without complications; E78.5 Hyperlipidemia, unspecified; I10 Essential (primary) hypertension; F17.210 Nicotine dependence, cigarettes, uncomplicated; Z88.2 Allergy status to sulfonamides; Z88.0 Allergy status to penicillin; Z79.899 Other long term (current) drug therapy
CPT/HCPCS: 70450; 80053; 80305; 80324; 85025; 99283

== ENCOUNTER 2020-05-15 16:08 | Outpatient (CLI) | payer MEDICARE, MEDICAID, SELFPAY ==
[2020-05-15 16:42] VITALS: BP 109/69; PULSE 72; RESP 18; TEMP 36.2; O2SAT 99
[2020-05-15 17:24] VITALS: BP 105/63; PULSE 78; RESP 18; O2SAT 98
== END 2020-05-15 17:24 | disposition home or self-care (01) ==
LOC: INF 16:11
PROVIDERS: PCP Family Medicine; Visit Provider Family Medicine
DX: G43.C1 Periodic headache syndromes in child or adult, intractable (principal)
CPT/HCPCS: 96372

== ENCOUNTER 2020-05-25 08:13 | Emergency (ER) | payer MEDICARE, MEDICAID, SELFPAY ==
[2020-05-25 08:18] VITALS: BP 128/110; PULSE 79; RESP 19; TEMP 36.5; O2SAT 96; BMI 21.7
--- NOTE | 2020-05-25 08:32 | HMH.EDGENADL ---
ED Disposition Clinical Impression: Migraine Disposition: Home, Self-Care Condition on Discharge: Good Instructions: DI for Migraine Referrals: Vasu Gutierres MD [Primary Care Provider] - 3 days - Critical Care Critical Care Time: No Attestation: On 05/25/20, the high probability of a clinically significant, sudden or life threatening deterioration of the following system(s) required my full and direct attention, intervention and personal management. The time I documented below is in addition to time spent performing reported procedures but includes the following listed in this critical care notation. Medical Decision Making - Medical Records Medical records reviewed: Yes: I reviewed the patient's medical records. - Corey Inquiry Pt receiving controlled substance: No Vital Signs: 05/25/20 08:18 Temperature 97.7 F Temperature Source Oral Pulse Rate [Left Radial] 79 Respiratory Rate 19 Blood Pressure [Right Arm] 128/110 H Blood Pressure Mean [Right Arm] 116 Blood Pressure Source [Right Arm] Automatic Cuff 02 Sat by Pulse Oximetry 96 Oxygen Delivery Method Room Air Medical Decision Narrative: Patient here for evaluation of altered mental status. However, she is not altered and it sounds like she was simply difficult to understand because of her tardive dyskinesia. She feels in her baseline health other than worsening of her chronic migraine expanding from the right side of her head to the left side. No head trauma or use of blood thinners or new neurologic findings that would prompt CT scan of the head. Given Tylenol here and discharged home. Exam and history and consistent with CVA, intracranial bleed, meningitis, intracranial infection, other acute causes of headache. General Adult HPI - General Chief complaint: PAIN Stated complaint: ams Time Seen by Provider: 05/25/20 08:32 Mode of Arrival: EMS Limitations: Physical Limitations Description of Symptoms (Recalled from ER Triage Doc. by RN): c/o of left sided pain, states this is her prior surgery area and usually it does not hurt but it is starting today - History of Present Illness HPI narrative: This is a 55-year-old female with a past medical history significant for tardive dyskinesia, drug abuse, hypertension, hyperlipidemia, GERD, diabetes, chronic migraines who presents to the emergency department for evaluation of odd behavior. She has no acute medical complaints today, though does note that her typical migraine pattern of being only on the right side of her head has now migrated over to the left side of her head about 10 minutes prior to police arriving to her house. She called the police because some people broke into her house and were throwing things around. She denies any head trauma. No loss of consciousness. She states that the officer did not understand her tardive dyskinesia, so told her to go to the emergency room to be seen ( and call was in fact for altered mental status ). She does have a new headache pattern, but would not have come for this and states that headaches are not uncommon for her. She does not take any blood thinners. No lateralizing motor or sensory changes. - Related Data Home Medications Medication Instructions Recorded Confirmed Cholecalciferol (Vitamin D3) 5,000 unit PO DAILY 07/25/17 10/22/19 [Vitamin D3] Desvenlafaxine Succinate [Pristiq] 50 mg PO HS 07/25/17 10/22/19 Promethazine HCl [Phenergan 25mg 25 mg PO Q6HP PRN 07/25/17 10/22/19 tab] Tizanidine HCl [Zanaflex] 4 mg PO TIDP PRN 07/25/17 10/22/19 pregabalin 200 mg capsule 200 mg PO TID 30 Days 09/09/17 10/22/19 trazodone 150 mg tablet 150 mg PO HS 30 Days 09/09/17 10/22/19 atorvastatin 80 mg tablet 80 mg PO HS 30 Days #30 tab 06/29/18 10/22/19 metformin 500 mg tablet,extended 500 mg PO BID 30 Days tab 06/29/18 10/23/19 release 24 hr Insulin NPH Hum/Reg Insulin Hm 33 unit SQ BID 05/19/19 10/22/19 [Novolin 70-30 Flexpen]
--- NOTE | 2020-05-25 08:58 | PC.NURSE ---
Pt refused tylenol, states that her headache is to bad for tylenol that she needs 3 shots of stadol and fentanyl IM not IV. MD aware, no new orders at this time.
[2020-05-25 10:53] VITALS: BP 123/98; PULSE 87; RESP 18; TEMP 36.6; O2SAT 99
== END 2020-05-25 10:53 | disposition home or self-care (01) ==
PROVIDERS: Emergency Provider Emergency Medicine; PCP Family Medicine
DX: G43.909 Migraine, unspecified, not intractable, without status migrainosus (principal); G24.01 Drug induced subacute dyskinesia; I10 Essential (primary) hypertension; E78.5 Hyperlipidemia, unspecified; K21.9 Gastro-esophageal reflux disease without esophagitis; E11.9 Type 2 diabetes mellitus without complications; J44.9 Chronic obstructive pulmonary disease, unspecified; Z86.73 Personal history of transient ischemic attack (TIA), and cerebral infarction without residual deficits; F17.210 Nicotine dependence, cigarettes, uncomplicated; Z88.0 Allergy status to penicillin; Z88.2 Allergy status to sulfonamides; Z88.5 Allergy status to narcotic agent; Z88.8 Allergy status to other drugs, medicaments and biological substances
CPT/HCPCS: 99281

== ENCOUNTER 2020-07-04 15:53 | Outpatient (CLI) | payer MEDICARE, MEDICAID, SELFPAY ==
[2020-07-04 16:00] VITALS: BP 187/98; PULSE 75; RESP 18; TEMP 36.4; O2SAT 96
[2020-07-04 16:30] VITALS: BP 179/94; PULSE 76; RESP 18; O2SAT 97
== END 2020-07-04 16:30 | disposition home or self-care (01) ==
LOC: INF 15:54
PROVIDERS: Visit Provider Family Medicine
DX: G43.C1 Periodic headache syndromes in child or adult, intractable (principal)
CPT/HCPCS: 96372

== ENCOUNTER 2020-07-07 12:30 | Outpatient (CLI) | payer MEDICARE, MEDICAID, SELFPAY ==
[2020-07-07 13:25] VITALS: BP 183/101; PULSE 79; RESP 18; TEMP 36.6; O2SAT 92
[2020-07-07 13:40] VITALS: BP 184/102; PULSE 90; RESP 18
[2020-07-07 13:55] VITALS: BP 156/97; PULSE 88; RESP 18
== END 2020-07-07 14:00 | disposition home or self-care (01) ==
LOC: INF 12:39
PROVIDERS: PCP Family Medicine; Visit Provider Family Medicine
DX: G43.C1 Periodic headache syndromes in child or adult, intractable (principal)
CPT/HCPCS: 96372

== ENCOUNTER 2020-07-28 16:57 | Outpatient (CLI) | payer MEDICARE, MEDICAID, SELFPAY ==
[2020-07-28 17:38] VITALS: BP 160/96; PULSE 84; RESP 16; TEMP 36.7; O2SAT 100
[2020-07-28 17:39] VITALS: BMI 24.7
[2020-07-28 18:12] VITALS: BP 160/96; PULSE 84; RESP 16; TEMP 36.7; O2SAT 100
== END 2020-07-28 18:12 | disposition home or self-care (01) ==
LOC: INF 17:02
PROVIDERS: PCP Family Medicine; Visit Provider Family Medicine
DX: G43.C1 Periodic headache syndromes in child or adult, intractable (principal)
CPT/HCPCS: 96372; 96374; J0595

== ENCOUNTER 2020-08-02 19:40 | Emergency (ER) | payer MEDICARE, MEDICAID, SELFPAY ==
[2020-08-02 19:07] VITALS: BP 180/100; PULSE 82; RESP 16; TEMP 36.7; O2SAT 98
--- NOTE | 2020-08-02 19:10 | CT_ITS ---
PROCEDURE: CT HEAD/BRAIN WO CON CLINICAL INDICATION: headache COMPARISON: CT CT HEAD/BRAIN WO CON from 04/26/2020 TECHNIQUE: Axial images obtained. All CT scans at the facility use one or more dose reduction, viz: automated exposure control, ma/kV adjustment per patient size (including targeted exams where dose is matched to indication, i.e. head), or iterative reconstruction technique. FINDINGS: No midline shift, mass effect, intracranial hemorrhage, hydrocephalus, or extra-axial fluid collection is evident. There is generalized atrophy with hypoattenuation of the periventricular white matter consistent with microangiopathic changes.. Encephalomalacia change is present in the left parietal region. Prior left-sided craniotomy. Encephalomalacia change also noted in the right cerebellum. No mastoid effusion. No sinus air-fluid level. IMPRESSION: As above, no change with no acute finding. Dictated by: Tom Beaulieu MD 08/03/2020 06:52 Tom Beaulieu MD in [facility] 08/03/2020 06:52
--- NOTE | 2020-08-02 19:23 | HMH.EDGENADL ---
ED Disposition Condition on Discharge: Good - Critical Care Critical Care Time: No <Jorge Valladares - Last Filed: 08/02/20 19:57> <Alex Gandhi - Last Filed: 08/02/20 20:33> Clinical Impression: Migraine headache Qualifiers: Migraine type: unspecified Status migrainosus presence: without status migrainosus Intractability: not intractable Qualified Code(s): G43.909 - Migraine, unspecified, not intractable, without status migrainosus Hypertension Qualifiers: Hypertension type: essential hypertension Qualified Code(s): I10 - Essential (primary) hypertension Disposition: Home, Self-Care Instructions: DI for Headache Additional Instructions: call p-cp for follow up Attestation: On 08/02/20, the high probability of a clinically significant, sudden or life threatening deterioration of the following system(s) required my full and direct attention, intervention and personal management. The time I documented below is in addition to time spent performing reported procedures but includes the following listed in this critical care notation. Medical Decision Making - Medical Records Medical records reviewed: Yes: I reviewed the patient's medical records. - Corey Inquiry Pt receiving controlled substance: No <Jorge Valladares - Last Filed: 08/02/20 19:57> - Lab Data Result diagrams: 08/02/20 19:15 08/02/20 19:15 <Alex Gandhi - Last Filed: 08/02/20 20:33> Vital Signs: 08/02/20 19:07 08/02/20 20:00 Temperature 98.0 F Temperature Source Oral Pulse Rate [Right Brachial] 82 86 Respiratory Rate 16 16 Blood Pressure [Right Arm] 180/100 H 170/92 H Blood Pressure Mean [Right Arm] 126 118 Blood Pressure Source [Right Arm] Manual Cuff/ Palpation Blood Pressure Position [Right Arm] Supine Sitting 02 Sat by Pulse Oximetry 98 98 Oxygen Delivery Method Room Air Room Air - Lab Data Lab Results 08/02/20 19:15: WBC 7.1, RBC 4.09 L, Hgb 12.6, Hct 39.0, MCV 95.4, MCH 30.8, MCHC 32.3, RDW 13.3, Plt Count 267, MPV 8.1, Neut % (Auto) 59.6, Lymph % (Auto) 33.5, [place] % (Auto) 5.0, Eos % (Auto) 1.1, Baso % (Auto) 0.8, Neut # (Auto) 4.3, Lymph # (Auto) 2.4, [place] # (Auto) 0.4, Eos # (Auto) 0.1, Baso # (Auto) 0.1 08/02/20 19:15: Sodium 139, Potassium 4.3, Chloride 104, Carbon Dioxide 25, Anion Gap 14.3, BUN 36 H, Creatinine 1.00, Estimated Creat Clear 68, Estimated GFR 57 L, Est GFR ( Amer) 69, Glucose 223 H, Calcium 10.2, Magnesium 1.5 L, Total Bilirubin 0.5, AST 28, ALT 29, Alkaline Phosphatase 77, Total Protein 7.4, Albumin 4.4, Globulin 3.0, Albumin/Globulin Ratio 1.5 Orders (Tests/Meds): ED MEDICATIONS Generic Name Dose Route Start Last Admin Trade Name Freq PRN Reason Stop Dose Admin Sodium Chloride 1,000 mls @ 999 mls/hr 08/02/20 19:15 08/02/20 19:24 Sod Chlor 0.9% 1000ml Bag IV 08/02/20 20:15 999 mls/hr .Q1H1M ZANDER Administration Sodium Chloride 10 ml 08/02/20 20:12 Sodium Chloride 0.9% 10ml Vial IV 09/01/20 20:11 NEEDED PRN to Dilute Lorazepam inj Discontinued Medications Generic Name Dose Route Start Last Admin Trade Name Freq PRN Reason Stop Dose Admin Butorphanol Tartrate 1 mg 08/02/20 19:30 08/02/20 19:33 Butorphanol Tartrate 1 Mg/Ml Vial IV 08/02/20 19:31 1 mg ONCE ONE Administration Hydromorphone HCl 1 mg 08/02/20 20:12 08/02/20 20:16 Hydromorphone 2mg/Ml Syringe IV 08/02/20 20:13 1 mg ONCE ONE Administration Lorazepam 1 mg 08/02/20 20:12 Lorazepam 2mg/Ml Vial IV 08/02/20 20:13 ONCE ONE Morphine Sulfate 4 mg 08/02/20 20:05 08/02/20 20:10 Morphine 4mg/Ml Syringe IV 08/02/20 20:06 Not Given ONCE ONE Promethazine HCl 25 mg 08/02/20 19:10 08/02/20 19:24 Promethazine Hcl 25mg/Ml 1ml Vial IV 08/02/20 19:11 25 mg ONCE ONE Administration Sodium Chloride 25 ml 08/02/20 19:10 08/02/20 19:24 Sodium Chloride 0.9% 25ml Bag IV 08/02/20 19:11 25 ml ONCE ONE Administration ORDERS Category
[2020-08-02 19:35] LABS: Basophils # 0.1 K/mm3 (0-0.2); Basophils % 0.8 % (0.1-2.0); Eosinophils # 0.1 K/mm3 (0.0-0.4); Eosinophils % 1.1 % (0.1-12.0); Hemoglobin 12.6 g/dL (12.2-16.2); Lymphocytes # 2.4 K/mm3 (0.7-4.5); Lymphocytes % 33.5 % (10-50); Mean Corpuscular HGB Conc 32.3 g/dL (31.8-35.4); Mean Corpuscular Hemoglobin 30.8 pg (27.0-31.2); Mean Corpuscular Volume 95.4 fl (81-99); Mean Platelet Volume 8.1 fl (7.4-10.4); Monocytes # 0.4 K/mm3 (0.1-1.0); Neutrophils # 4.3 K/mm3 (1.8-7.8); Neutrophils % 59.6 % (37.0-80.0); Platelet Count 267 K/mm3 (142-424); Red Blood Count 4.09 M/mm3 (4.20-5.40); Red Cell Distribution Width 13.3 % (11.5-17.5); White Blood Count 7.1 K/mm3 (4.8-10.8)
[2020-08-02 19:45] LABS: Chloride 104 mmol/L (98-107); Sodium 139 mmol/L (136-145)
[2020-08-02 19:46] LABS: Potassium 4.3 mmoL/L (3.5-5.1)
[2020-08-02 19:48] LABS: Alanine Aminotransferase 29 U/L (12-78); Albumin Level 4.4 g/dl (3.5-5.0); Albumin/Globulin Ratio 1.5 (1.1-1.8); Alkaline Phosphatase 77 U/L (38-126); Anion Gap 14.3 mEq/L (5-15); Aspartate Amino Transferase 28 U/L (14-36); Bilirubin,Total 0.5 mg/dl (0.2-1.3); Blood Urea Nitrogen 36 mg/dl (7-17); Calcium 10.2 mg/dl (8.4-10.2); Carbon Dioxide 25 mmol/L (22.0-30.0); Creatinine Clearance Estimated 68 mL/min (50-200); Estimated Glomerular Filt Rate 57 ml/min (>60); GFR (African American) 69 ML/MIN (>60); Glucose 223 mg/dl (74-100); Total Protein,Serum 7.4 g/dl (6.3-8.2)
[2020-08-02 19:49] LABS: Magnesium 1.5 mg/dl (1.6-2.3)
[2020-08-02 20:00] VITALS: BP 170/92; PULSE 86; RESP 16; O2SAT 98
[2020-08-02 20:51] VITALS: BP 179/82; PULSE 81; RESP 19; TEMP 36.8; O2SAT 98
[2020-09-12 13:03] LABS: POC Glucose,Bedside 231 (70-110)
== END 2020-08-02 20:55 | disposition home or self-care (01) ==
PROVIDERS: Emergency Provider Emergency Medicine; PCP Family Medicine
DX: G43.119 Migraine with aura, intractable, without status migrainosus (principal); I10 Essential (primary) hypertension; E78.5 Hyperlipidemia, unspecified; E03.9 Hypothyroidism, unspecified; E11.65 Type 2 diabetes mellitus with hyperglycemia; F41.8 Other specified anxiety disorders; J44.9 Chronic obstructive pulmonary disease, unspecified; I25.10 Atherosclerotic heart disease of native coronary artery without angina pectoris; F17.210 Nicotine dependence, cigarettes, uncomplicated; Z79.899 Other long term (current) drug therapy; Z86.73 Personal history of transient ischemic attack (TIA), and cerebral infarction without residual deficits; Z88.0 Allergy status to penicillin; Z88.2 Allergy status to sulfonamides; Z88.8 Allergy status to other drugs, medicaments and biological substances
CPT/HCPCS: 70450; 80053; 82962; 83735; 85025; 96365; 96375; 99283; J0595

== ENCOUNTER 2020-08-11 15:55 | Outpatient (CLI) | payer MEDICARE, MEDICAID, SELFPAY ==
[2020-08-11 16:25] VITALS: BP 158/86; BP 162/96; PULSE 75; PULSE 77; RESP 18; TEMP 36.6; O2SAT 95
== END 2020-08-11 16:25 | disposition home or self-care (01) ==
LOC: INF 15:59
PROVIDERS: Visit Provider Family Medicine
DX: G43.C1 Periodic headache syndromes in child or adult, intractable (principal)
CPT/HCPCS: 96372

== ENCOUNTER → 2020-08-18 12:10 | Outpatient (CLI) | payer MEDICARE, MEDICAID, SELFPAY ==
[2020-08-18 13:47] LABS: Chloride 105 mmol/L (98-107)
[2020-08-18 13:48] LABS: Potassium 4.4 mmoL/L (3.5-5.1); Sodium 140 mmol/L (136-145)
[2020-08-18 13:50] LABS: Blood Urea Nitrogen 34 mg/dl (7-17); Estimated Glomerular Filt Rate 51 ml/min (>60); GFR (African American) 62 ML/MIN (>60)
[2020-08-18 13:51] LABS: Alanine Aminotransferase 25 U/L (12-78); Albumin Level 4.6 g/dl (3.5-5.0); Albumin/Globulin Ratio 1.6 (1.1-1.8); Alkaline Phosphatase 85 U/L (38-126); Anion Gap 14.4 mEq/L (5-15); Aspartate Amino Transferase 29 U/L (14-36); Bilirubin,Total 0.5 mg/dl (0.2-1.3); Carbon Dioxide 25 mmol/L (22.0-30.0); Globulin 2.8 g/dL (1.3-3.2); Glucose 254 mg/dl (74-100); Total Protein,Serum 7.4 g/dl (6.3-8.2)
[2020-08-18 14:33] LABS: Chol/HDL Ratio 1.9 (1-3.5); Cholesterol 121 mg/dl (140-200); HDL Cholesterol 65 mg/dl (40-60); Triglycerides 90 mg/dl (30-150); VLDL Cholesterol 18 mg/dL (0-40)
[2020-08-18 14:44] LABS: Direct LDL Cholesterol 34.04 mg/dL (100-129)
[2020-08-18 15:11] LABS: Hemoglobin A1C 7.1 % (4.0-6.0)
== END ==
PROVIDERS: PCP Family Medicine; Visit Provider Family Medicine
DX: E11.65 Type 2 diabetes mellitus with hyperglycemia (principal); Z20.822 Contact with and (suspected) exposure to COVID-19; G43.C1 Periodic headache syndromes in child or adult, intractable; Z79.4 Long term (current) use of insulin
CPT/HCPCS: 36415; 80053; 80061; 83036; U0003

== ENCOUNTER 2020-08-22 12:31 | Outpatient (CLI) | payer MEDICARE, MEDICAID, SELFPAY ==
--- NOTE | 2020-08-22 12:35 | MR_ITS ---
PROCEDURE: MR HEAD/BRAIN WO/W CON CLINICAL INDICATION: INTRACTABLE PERIODIC HEADACHE, HX BRAIN MENINGIOMA migraines with hx of brain surgery do to meningioma. COMPARISON: MR [facility] MRI-BRAIN W/WO from 03/14/2016 MR BRAINWO MR head/brain wo con from 09/29/2017 US CA CAROTID DUPLEX BI from 05/19/[address] HEAD/BRAIN WO CON from 08/02/2020 TECHNIQUE: Routine multiplanar multi echo sequences are performed without and with gadolinium enhancement. FINDINGS: The no midline shift or mass effect is evident. No evidence of acute infarction. There are no enhancing lesions. Postsurgical changes are present with craniotomy defect in left frontal parietal area. No evidence of recurrent mass at this region. There are encephalomalacia changes in the right inferior cerebellar region. There are scattered periventricular and subcortical T2 white matter hyperintensities. There is increased FLAIR signal intensity in the left post central gyrus of the parietal lobe with central sulcal area of decreased FLAIR signal. The T2 hyperintensity appears slightly greater compared to the previous exam and may be related to increasing gliosis. The the central decreased T2 signal also appears somewhat more prominent possibly related to some underlying mineralization. These areas however do not demonstrate any contrast enhancement and therefore not concerning for recurrence of tumor.. Continued follow-up however is suggested for confirmation. The cerebellopontine angles and brainstem have an unremarkable appearance. The pituitary, optic chiasm, corpus callosum, and craniocervical junction have an unremarkable appearance. No mastoid effusion or sinus air-fluid level. IMPRESSION: 1. No acute intracranial findings. 2. Postsurgical changes with encephalomalacia changes in the left parietal and right inferior cerebellar region. There is some increased T2 signal in the left parietal lobe at the area of previously noted encephalomalacia. This is of questionable clinical significance and may be related to increasing gliosis. No enhancement evident. Continued follow-up suggested to confirm stability. Dictated by: Tom Beaulieu MD 08/23/2020 13:46 Tom Beaulieu MD in [place] 08/23/2020 13:48
[2020-08-22 14:50] VITALS: BP 139/89; PULSE 79; RESP 18; TEMP 36.4; O2SAT 97
[2020-08-22 15:10] VITALS: BP 132/86; PULSE 81; RESP 18; O2SAT 97
== END 2020-08-22 15:10 | disposition home or self-care (01) ==
LOC: RAD 12:31 → INF 14:40
PROVIDERS: PCP Family Medicine; Visit Provider Family Medicine
DX: G43.C1 Periodic headache syndromes in child or adult, intractable (principal); M54.2 Cervicalgia; Z86.011 Personal history of benign neoplasm of the brain
CPT/HCPCS: 70553; 96372; A9576; J1040

== ENCOUNTER 2020-08-26 08:14 | Observation (INO) | payer MEDICARE, MEDICAID, SELFPAY ==
[2020-08-26] VITALS (14 sets, daily range): BP systolic 119–193; BP diastolic 76–100; PULSE 82–97; RESP 15–20; TEMP 36.5–36.9; O2SAT 92–100; BMI 23.3; BMI 21.8
--- NOTE | 2020-08-26 08:33 | CT_ITS ---
PROCEDURE: CT HEAD/BRAIN WO CON CLINICAL INDICATION: ams Altered mental status, altered level of consciousness, confusion, disorientation Headache COMPARISON: CT CT HEAD/BRAIN WO CON from 08/02/2020 TECHNIQUE: Axial images obtained. All CT scans at the facility use one or more dose reduction, viz: automated exposure control, ma/kV adjustment per patient size (including targeted exams where dose is matched to indication, i.e. head), or iterative reconstruction technique. FINDINGS: Motion artifact does obscure fine detail despite repeating the exam and despite using helical technique. No midline shift or mass effect is evident. Encephalomalacia changes are present in the left parietal lobe. Prior left-sided craniotomy. No acute intracranial hemorrhage IMPRESSION: No acute finding. Dictated by: Tom Beaulieu MD 08/26/2020 09:23 Tom Beaulieu MD in [place] 08/26/2020 09:23
--- NOTE | 2020-08-26 08:35 | PC.NURSE ---
notified rad of CT order
[2020-08-26 08:40] LABS: Appearance,Urine CLEAR (Clear); Blood, Urine 1+ (Negative); Color,Urine YELLOW (Yellow); Glucose,Urine (UA) Negative (Negative); Ketones,Urine 1+ (Negative); Leukocyte Esterase,Urine Negative (Negative); Microscopic, Urine URINE MICROSCOPIC (MICROSCOPIC); Nitrate,Urine Negative (Negative); PH,Urine 5.5 (5.0-8.5); Protein,Urine 2+ (Negative); Specific Gravity, Urine >= 1.030 (1.005-1.030); Urobilinogen,Urine 0.2 EU/dl (0.2)
[2020-08-26 08:41] LABS: Basophils # 0.1 K/mm3 (0-0.2); Basophils % 0.8 % (0.1-2.0); Chloride 109 mmol/L (98-107); Eosinophils # 0.1 K/mm3 (0.0-0.4); Eosinophils % 0.9 % (0.1-12.0); Hematocrit 41.1 % (37.0-47.0); Hemoglobin 13.7 g/dL (12.2-16.2); Lymphocytes # 2.4 K/mm3 (0.7-4.5); Lymphocytes % 18.8 % (10-50); Mean Corpuscular HGB Conc 33.4 g/dL (31.8-35.4); Mean Corpuscular Volume 92.8 fl (81-99); Mean Platelet Volume 8.5 fl (7.4-10.4); Monocytes # 0.6 K/mm3 (0.1-1.0); Monocytes % 4.4 % (1.7-9.3); Neutrophils # 9.8 K/mm3 (1.8-7.8); Neutrophils % 75.2 % (37.0-80.0); Platelet Count 286 K/mm3 (142-424); Red Blood Count 4.43 M/mm3 (4.20-5.40); Red Cell Distribution Width 12.7 % (11.5-17.5); Sodium 142 mmol/L (136-145)
[2020-08-26 08:42] LABS: Potassium 4.8 mmoL/L (3.5-5.1)
[2020-08-26 08:43] LABS: Bilirubin,Urine Negative (Negative)
[2020-08-26 08:44] LABS: Alanine Aminotransferase 31 U/L (12-78); Alkaline Phosphatase 129 U/L (38-126); Anion Gap 20.8 mEq/L (5-15); Aspartate Amino Transferase 57 U/L (14-36); Blood Urea Nitrogen 47 mg/dl (7-17); Carbon Dioxide 17 mmol/L (22.0-30.0); Creatinine Clearance Estimated 54 mL/min (50-200); Estimated Glomerular Filt Rate 46 ml/min (>60); GFR (African American) 56 ML/MIN (>60)
[2020-08-26 08:45] LABS: Albumin Level 5.2 g/dl (3.5-5.0); Albumin/Globulin Ratio 1.5 (1.1-1.8); Calcium 11.2 mg/dl (8.4-10.2); Globulin 3.4 g/dL (1.3-3.2); Glucose 135 mg/dl (74-100); Total Protein,Serum 8.6 g/dl (6.3-8.2)
--- NOTE | 2020-08-26 08:47 | HMH.EDGENADL ---
ED Disposition Clinical Impression: Methamphetamine use, Dehydration Migraine Qualifiers: Migraine type: unspecified Status migrainosus presence: with status migrainosus Intractability: intractable Qualified Code(s): G43.911 - Migraine, unspecified, intractable, with status migrainosus Altered mental status Qualifiers: Altered mental status type: disorientation Qualified Code(s): R41.0 - Disorientation, unspecified Disposition: Admitted as Observation Condition on Discharge: Fair - Critical Care Critical Care Time: No Attestation: On 08/26/20, the high probability of a clinically significant, sudden or life threatening deterioration of the following system(s) required my full and direct attention, intervention and personal management. The time I documented below is in addition to time spent performing reported procedures but includes the following listed in this critical care notation. Medical Decision Making - Medical Records Medical records reviewed: Yes: I reviewed the patient's medical records. MR Comment: Seen in this ED on 08/02/2020 for migraine. Had outpatient MRI of the brain on 08/23/2020. No acute intracranial findings. Result below. - Corey Inquiry Pt receiving controlled substance: Yes Corey was queried for this patient: Yes Reference #:: [id number] Risks and benefits of using a controlled substance: were not discussed with pt by me Comment: 11 rxs, 10 are from pregabilin. No amphetamines. Vital Signs: 08/26/20 08:14 08/26/20 09:17 08/26/20 09:51 Temperature 97.7 F Temperature Source Oral Pulse Rate [Right Radial] 97 H 97 H 95 H Respiratory Rate 20 Blood Pressure [Right Arm] 193/93 H 171/99 H 161/96 H Blood Pressure Mean [Right Arm] 126 123 117 Blood Pressure Source [Right Arm] Automatic Cuff Automatic Cuff Automatic Cuff Blood Pressure Position [Right Arm] Sitting Sitting Sitting 02 Sat by Pulse Oximetry 97 97 92 L Oxygen Delivery Method Room Air Room Air Room Air 08/26/20 11:01 08/26/20 11:32 08/26/20 12:01 Temperature Temperature Source Pulse Rate [Right Radial] 89 83 82 Respiratory Rate Blood Pressure [Right Arm] 156/79 H 171/80 H 168/82 H Blood Pressure Mean [Right Arm] 104 110 110 Blood Pressure Source [Right Arm] Automatic Cuff Automatic Cuff Automatic Cuff Blood Pressure Position [Right Arm] Sitting Sitting Sitting 02 Sat by Pulse Oximetry 94 L 95 93 L Oxygen Delivery Method Room Air Room Air Room Air 08/26/20 13:47 08/26/20 14:46 08/26/20 15:58 Temperature Temperature Source Pulse Rate [Right Radial] 93 H 85 84 Respiratory Rate Blood Pressure [Right Arm] 121/100 H 147/79 H 160/79 H Blood Pressure Mean [Right Arm] 107 101 106 Blood Pressure Source [Right Arm] Automatic Cuff Automatic Cuff Automatic Cuff Blood Pressure Position [Right Arm] Sitting Sitting Sitting 02 Sat by Pulse Oximetry 96 Oxygen Delivery Method Room Air - Lab Data Lab Results 08/26/20 08:27: Urine Color Yellow, Urine Appearance Clear, Urine pH 5.5, Ur Specific [place] >= 1.030, Urine Protein 2+, Urine Glucose (UA) Negative, Urine Ketones 1+, Urine Blood 1+, Urine Nitrate Negative, Urine Bilirubin Negative, Urine Urobilinogen 0.2, Ur Leukocyte Esterase Negative, Urine RBC 3-5, Urine WBC None, Ur Squamous Epith Cells Occasional, Urine Bacteria None 08/26/20 08:27: WBC 13.0 H, RBC 4.43, Hgb 13.7, Hct 41.1, MCV 92.8, MCH 31.0, MCHC 33.4, RDW 12.7, Plt Count 286, MPV 8.5, Neut % (Auto) 75.2, Lymph % (Auto) 18.8, [place] % (Auto) 4.4, Eos % (Auto) 0.9, Baso % (Auto) 0.8, Neut # (Auto) 9.8 H, Lymph # (Auto) 2.4, [place] # (Auto) 0.6, Eos # (Auto) 0.1, Baso # (Auto) 0.1 08/26/20 08:27: Sodium 142, Potassium 4.8, Chloride 109 H, Carbon Dioxide 17 L, Anion Gap 20.8 H, BUN 47 H, Creatinine 1.20 H, Estimated Creat Clear 54, Estimated GFR 46 L, Est GFR ( Amer) 56 L, Glucose 135 H, Calcium 11.2 H, Total Bilirubin 1.0, AST 57 H, ALT 31, Alkaline Phosphatase 129 H, Total Protein 8.6 H, Albumin 5
[2020-08-26 08:52] LABS: Squamous Epithelial Cell,Urine Occasional #/hpf (0-5)
[2020-08-26 08:53] LABS: Barbiturates Screen,Urine Negative ng/ml (<200); Benzodiazepines Screen,Urine Negative ng/ml (<200)
[2020-08-26 08:54] LABS: Cannabinoid Screen,Urine Negative ng/ml (<50)
[2020-08-26 08:55] LABS: Cocaine Screen,Urine Negative ng/ml (<300); Methadone Screen,Urine Negative ng/ml (<300)
[2020-08-26 08:56] LABS: Opiate Screen,Urine Negative ng/ml (<300); Phencyclidine Screen,Urine Negative ng/ml (<25)
--- NOTE | 2020-08-26 08:57 | PC.NURSE ---
Pt to rad.
--- NOTE | 2020-08-26 09:22 | PC.NURSE ---
KACI COFFEY at
[2020-08-26 09:31] LABS: Acetaminophen < 10 ug/ml (10-30); Ethyl Alcohol < 10 mg/dl (0-10); Salicylate < 1.0 mg/dL (2.0-20.0)
--- NOTE | 2020-08-26 09:49 | PC.NURSE ---
Pt continues to talk out loud to people who are not in the room, she states that she is scared.
--- NOTE | 2020-08-26 11:01 | PC.NURSE ---
Pt is a lot more calm at this time.
--- NOTE | 2020-08-26 12:36 | PC.NURSE ---
Friend states that she is unable to take the pt home in the condition that pt is in due to pt staying by herself. paged Dr. Swann again for further care for pt
--- NOTE | 2020-08-26 13:09 | PC.NURSE ---
pt is upset after her friend was here, pt is talking to herself. Yelling for her brother but when asked if she wants us to call her brother she states no, he is mean . KACI COFFEY is aware.
--- NOTE | 2020-08-26 13:25 | PC.NURSE ---
pt is currently seeing people who are not in her room. Pt states she keeps seeing her brother who has not been here. When asked pt if she knows where she is at pt states I have no idea . pt medicated per MAR, will continue to monitor.
--- NOTE | 2020-08-26 13:36 | PC.NURSE ---
per lab pt covid swab has not been placed on the analyzer yet, states they are waiting on the current run to get finished they will have to reboot the machine and then will place pt swab on to run.
--- NOTE | 2020-08-26 14:30 | PC.NURSE ---
per lab pt covid swab has 90 minutes left on analyzer
--- NOTE | 2020-08-26 14:44 | PC.NURSE ---
unable to reconcile pt medications r/t pt is not able to provide medication names or dosages.
--- NOTE | 2020-08-26 14:45 | PC.NURSE ---
pt sleeping at this time, will continue to monitor
--- NOTE | 2020-08-26 16:24 | PC.NURSE ---
report given to roberto mancia at this time
--- NOTE | 2020-08-26 16:52 | PC.NURSE ---
pt starting to wake up and trying to get up out of bed, talking to herself. ER MD stated to give pt a dose of Ativan prn IV on admission orders prior to pt going to assigned room
[2020-08-26 18:00] LABS: POC Glucose,Bedside 74 (70-110)
[2020-08-26 20:30] LABS: POC Glucose,Bedside 177 (70-110)
[2020-08-27] VITALS: BP 151/56; PULSE 66; RESP 16; TEMP 36.6; O2SAT 92
[2020-08-27 04:00] VITALS: BP 158/87; PULSE 63; RESP 16; TEMP 36.4; O2SAT 98
--- NOTE | 2020-08-27 04:01 | PC.NURSE ---
Addendum entered by Jaylene Salas RN 08/27/20 05:02: During bath, it was noted that pt has poor hygiene. Pt's hair has multiple tangles. Pt would not cooperate to remove. Original Note: Pt is currently sleeping. Became agitated early in shift and demanded her bath to be given immediately. Pt was redirected. Bed bath was given. Pt woke again during shift and was becoming agitated again. Pt was redirected. Warm blanket applied. Pt went back to sleep. Medications administered per sep. VSS. Will continue to monitor.
[2020-08-27 04:45] VITALS: BMI 22.1
[2020-08-27 05:42] LABS: POC Glucose,Bedside 98 (70-110)
[2020-08-27 07:12] LABS: Basophils # 0.1 K/mm3 (0-0.2); Basophils % 0.8 % (0.1-2.0); Eosinophils # 0.1 K/mm3 (0.0-0.4); Hematocrit 41.7 % (37.0-47.0); Hemoglobin 13.7 g/dL (12.2-16.2); Lymphocytes % 31.6 % (10-50); Mean Corpuscular HGB Conc 32.8 g/dL (31.8-35.4); Mean Corpuscular Hemoglobin 30.2 pg (27.0-31.2); Mean Platelet Volume 7.8 fl (7.4-10.4); Monocytes # 0.3 K/mm3 (0.1-1.0); Monocytes % 4.8 % (1.7-9.3); Neutrophils # 3.9 K/mm3 (1.8-7.8); Neutrophils % 61.8 % (37.0-80.0); Platelet Count 218 K/mm3 (142-424); Red Blood Count 4.53 M/mm3 (4.20-5.40); Red Cell Distribution Width 12.6 % (11.5-17.5); White Blood Count 6.3 K/mm3 (4.8-10.8)
[2020-08-27 07:28] LABS: Anion Gap 12.2 mEq/L (5-15); Blood Urea Nitrogen 27 mg/dl (7-17); Calcium 9.6 mg/dl (8.4-10.2); Carbon Dioxide 20 mmol/L (22.0-30.0); Chloride 112 mmol/L (98-107); Creatinine Clearance Estimated 85 mL/min (50-200); Estimated Glomerular Filt Rate 86 ml/min (>60); GFR (African American) 104 ML/MIN (>60); Glucose 107 mg/dl (74-100); Potassium 4.2 mmoL/L (3.5-5.1); Sodium 140 mmol/L (136-145)
[2020-08-27 08:00] VITALS: BP 160/73; PULSE 69; RESP 21; TEMP 36.5; O2SAT 96
--- NOTE | 2020-08-27 08:52 | HMH.HP ---
*Admission Date: 08/27/20 *Chief complaint: Altered mental status *History of present illness: Citlali is a 55-year-old white female with a history of hypertension, type 2 diabetes mellitus, chronic migraine headaches, old CVA, meningioma, tardive dyskinesia, methamphetamine abuse, and depression. She was apparently found at her apartment yesterday with altered mental status and brought to the emergency room by ambulance. In the ER, she was confused and had periods of agitation. She was asking for her mother who is . Work-up in emergency room showed essentially normal blood work and urinalysis. Her urine drug screen apparently showed amphetamines although the report in the chart shows TNP and the test was sent out for confirmation which is still pending. She had a recent outpatient MRI on 08/22/2020 which reportedly showed no acute intracranial findings. With her essentially negative work-up in the ER, the initial plan was to send her home, however her friend refused to take her home in her present condition since she lives alone and did not feel she was safe to be alone. She was subsequent admitted for further observation. She essentially slept most of the night last night although did awaken a couple of times with agitation and was redirected. At the time of my exam this morning, I awakened her from sleep. She knows my name and knows that she is in the hospital but cannot tell me the date, why she is here, or how she got here. She is asking if her parents are here. I explained that they are both and she became upset. She tells me she has been having stomach pain and diarrhea for a few days although this was not a complaint or an observed finding in the ER or since admission to the floor. [facility] History Medical History: Reports:: Anxiety, Chronic Obstructive Pulmonary Disease (COPD), Coronary Artery Disease, Cerebrovascular Accident (intraoperative), Deep Vein Thrombosis, Depression, Diabetes Mellitus Type 2, Hyperlipidemia, Hypertension, Migraine Denies:: Diabetes Mellitus Type 1, Internal Pacemaker, MRSA, Seizures *Have you ever received a pneumonia vaccine?: No *Have you received a flu vaccine this season?: No Other Medical History: Reports: Arthritis, Sinus Problems, Other (Chronic headache syndrome, benign meningioma) Laterality Cases: Right: Lumpectomy, Bilateral: Other Other Surgeries: Yes: Cardiac Catheterization, Tubal Ligation, Other (DREZ procedure x 2; excision of meningioma). No: Pacemaker Amputation: No Fractures: No - *Social History Last grade of school completed: High school graduate Smoking Status: Current every day smoker Tobacco Type: cigarettes # Packs/Day (cigarettes): 1 Alcohol Intake: current Alcohol Intake Frequency:: a few times a week Substance Use Type: methamphetamine *Occupational Status:: disabled Housing: apartment Household Members: other *Travel in the last 8 weeks: None - Psychiatric History Pschychiatric History:: Reports:: Anxiety, Depression Family Hx:: Asthma, Cancer, Diabetes, Hyperlipidemia, Hypertension, Stroke Review of Systems - Review of Systems Review of systems:: unable to obtain (not currently a reliable historian) - *Neurologic Reports confusion, Reports headache(s) Meds Home Medications Medication Instructions Recorded Confirmed Type Cholecalciferol (Vitamin D3) 5,000 unit PO DAILY 07/25/17 08/22/20 History [Vitamin D3] Desvenlafaxine Succinate [Pristiq] 50 mg PO HS 07/25/17 08/22/20 History Promethazine HCl [Phenergan 25mg 25 mg PO Q6HP PRN 07/25/17 08/22/20 History tab] Tizanidine HCl [Zanaflex] 4 mg PO TIDP PRN 07/25/17 08/22/20 History pregabalin 200 mg capsule 200 mg PO TID 30 Days 09/09/17 08/22/20 History trazodone 150 mg tablet 150 mg PO HS 30 Days 09/09/17 08/22/20 History atorvastatin 80 mg tablet 80 mg PO HS 30 Days #30 tab 06/29/18 08/22/20 History metformin 500 mg tablet,extended 500 mg PO BID 30 Days tab 06/29/18 08/22/20 History rel
[2020-08-27 12:04] LABS: POC Glucose,Bedside 94 (70-110)
--- NOTE | 2020-08-27 14:34 | HMH.PHAVTE ---
[facility] Pharmacy VTE Monitoring - Patient Demographics Admission date: 08/27/20 Report Date: 08/27/20 Time: 13:00 Allergies/Adverse Reactions: Patient Allergies cephalexin [CEPHALEXIN] Allergy (Intermediate, Verified 07/28/20 17:39) I-ITCHING Cephalosporins Allergy (Intermediate, Verified 07/28/20 17:39) ITCHING levofloxacin [From LEVAQUIN] Allergy (Intermediate, Verified 07/28/20 17:39) I-RASH Macrolide Antibiotics Allergy (Intermediate, Verified 07/28/20 17:39) ITCHING Penicillins [PENICILLINS] Allergy (Intermediate, Verified 07/28/20 17:39) I-RASH, VOMITING Quinolones [QUINOLONES] Allergy (Intermediate, Verified 07/28/20 17:39) I-RASH Sulfa (Sulfonamide Antibiotics) [SULFA (SULFONAMIDE ANTIBIOTICS)] Allergy (Intermediate, Verified 07/28/20 17:39) I-RASH trimethoprim [TRIMETHOPRIM] Allergy (Intermediate, Verified 07/28/20 17:39) I-RASH ciprofloxacin [From CIPRO] Allergy (Unknown, Verified 07/28/20 17:39) Unknown allergy reaction eletriptan [From RELPAX] Allergy (Unknown, Verified 07/28/20 17:39) Unknown allergy reaction ergonovine [ERGONOVINE] Allergy (Unknown, Verified 07/28/20 17:39) NA-NAUSEA/VOMITING erythromycin base [ERYTHROMYCIN BASE] Allergy (Unknown, Verified 07/28/20 17:39) Unknown allergy reaction ketorolac [KETOROLAC] Allergy (Unknown, Verified 07/28/20 17:39) NA-NAUSEA/VOMITING methadone [METHADONE] Allergy (Unknown, Verified 07/28/20 17:39) SWELLING OF FEET metoclopramide [From REGLAN] Allergy (Unknown, Verified 07/28/20 17:39) NA-HALLUCINATIONS naratriptan [NARATRIPTAN] Allergy (Unknown, Verified 07/28/20 17:39) Unknown allergy reaction quetiapine [From SEROQUEL] Allergy (Unknown, Verified 07/28/20 17:39) Unknown allergy reaction sumatriptan [From IMITREX] Allergy (Unknown, Verified 07/28/20 17:39) Unknown allergy reaction vilazodone [From VIIBRYD] Allergy (Unknown, Verified 07/28/20 17:39) Unknown allergy reaction Height: 1.65 m Weight: 60.47 kg Patient Problems: Current Active Problems Hypertension (Acute) Tardive dyskinesia (Acute) Dehydration (Acute) History of CVA (cerebrovascular accident) (Acute) Chronic mixed headache syndrome (Acute) Altered mental status (Acute) Type 2 diabetes mellitus (Acute) Psychosis (Acute) Migraine (Acute) Methamphetamine abuse (Acute) - VTE Risk Labs: VTE Related Lab Results Hgb 13.7 g/dL (12.2-16.2) 08/27/20 06:41 Hct 41.7 % (37.0-47.0) 08/27/20 06:41 Plt Count 218 K/mm3 (142-424) 08/27/20 06:41 BUN 27 mg/dl (7-17) H D 08/27/20 06:41 Creatinine 0.70 mg/dl (0.52-1.04) D 08/27/20 06:41 Estimated Creat Clear 85 mL/min (50-200) 08/27/20 06:41 VTE Score: 4 VTE Risk Level: Low Risk - Prophylaxis Types of VTE Prophylaxis: TEDS Knee High Location of Applied Device: Bilateral Lower Extremeties (JONE HOSE ORDERED)
[2020-08-27 15:40] VITALS: BP 170/68; PULSE 68; RESP 16; TEMP 36.8; O2SAT 97
--- NOTE | 2020-08-27 16:25 | PC.NURSE ---
PT IS SITTING UP IN THE CHAIR. PT HAS BEEN SLEEPING MOST OF THE DAY BUT WILL AWAKEN TO ANSWER QUESTIONS. SPEECH IS VERY DELAYED AND PT HAS A VERY HARD TIME FINDING HER WORDS. PT HAS BEEN INCONTINENT OF BOWEL AND BLADDER T/O THE SHIFT. PT DID HAVE A PURE WICK IN PLACE BUT PT WANTED IT REMOVED B/C SHE STATED IT FELT VERY NASTY. PT WAS A 2 ASSIST TO GET OOB TO THE CHAIR. PT HAS HAD A DIFFICULT TIME STAYING AWAKE TO EAT AND DRINK THIS SHIFT. LUNG SOUNDS CLEAR. ABDOMEN SOFT/NON TENDER WITH ACTIVE BOWEL SOUNDS. PT WAS ASKED ABOUT HER HOME MEDICATION THIS SHIFT AND SHE STATED SHE DID NOT KNOW THE NAMES AND DOES NOT REMEMBER WHEN SHE LAST TOOK THEM. WILL CONTINUE TO MONITOR.
[2020-08-27 17:27] LABS: POC Glucose,Bedside 102 (70-110)
[2020-08-27 20:00] VITALS: BP 170/92; PULSE 65; RESP 17; TEMP 36.4; O2SAT 97
[2020-08-27 21:05] LABS: POC Glucose,Bedside 80 (70-110)
[2020-08-28 04:00] VITALS: BP 150/79; PULSE 72; RESP 16; TEMP 36.6; O2SAT 94
--- NOTE | 2020-08-28 04:28 | PC.NURSE ---
No acute changes this shift. Pt is alert to self and situation. Does not know what year it is. Will converse with staff but answers are delayed. She remains drowsy. She has rested well this shift. Has cooperated with staff. No behavior noted. Pt was up to chair early in shift. Ambulated to bed with assistance and tolerated fair. She does not ambulate well and loses balance. VSS. Medications administered per mar. Will continue to monitor.
[2020-08-28 06:00] VITALS: BMI 218907.5
[2020-08-28 06:20] LABS: POC Glucose,Bedside 87 (70-110)
[2020-08-28 07:02] LABS: Basophils % 0.6 % (0.1-2.0); Eosinophils # 0.1 K/mm3 (0.0-0.4); Eosinophils % 0.9 % (0.1-12.0); Hematocrit 40.1 % (37.0-47.0); Hemoglobin 13.1 g/dL (12.2-16.2); Lymphocytes # 1.9 K/mm3 (0.7-4.5); Lymphocytes % 26.6 % (10-50); Mean Corpuscular HGB Conc 32.6 g/dL (31.8-35.4); Mean Corpuscular Hemoglobin 29.7 pg (27.0-31.2); Mean Platelet Volume 8.1 fl (7.4-10.4); Monocytes # 0.5 K/mm3 (0.1-1.0); Monocytes % 7.5 % (1.7-9.3); Neutrophils # 4.5 K/mm3 (1.8-7.8); Neutrophils % 64.3 % (37.0-80.0); Platelet Count 204 K/mm3 (142-424); Red Blood Count 4.41 M/mm3 (4.20-5.40); Red Cell Distribution Width 12.1 % (11.5-17.5)
[2020-08-28 07:08] LABS: Chloride 114 mmol/L (98-107); Potassium 3.9 mmoL/L (3.5-5.1); Sodium 141 mmol/L (136-145)
[2020-08-28 07:10] LABS: Blood Urea Nitrogen 23 mg/dl (7-17); Creatinine Clearance Estimated 73 mL/min (50-200); Estimated Glomerular Filt Rate 74 ml/min (>60); GFR (African American) 89 ML/MIN (>60)
[2020-08-28 07:11] LABS: Alanine Aminotransferase 31 U/L (12-78); Albumin Level 3.9 g/dl (3.5-5.0); Albumin/Globulin Ratio 1.3 (1.1-1.8); Alkaline Phosphatase 96 U/L (38-126); Anion Gap 11.9 mEq/L (5-15); Aspartate Amino Transferase 49 U/L (14-36); Bilirubin,Total 0.6 mg/dl (0.2-1.3); Calcium 9.5 mg/dl (8.4-10.2); Carbon Dioxide 19 mmol/L (22.0-30.0); Glucose 91 mg/dl (74-100); Lipase 59 U/L (23-300); Total Protein,Serum 6.9 g/dl (6.3-8.2)
[2020-08-28 08:00] VITALS: BP 112/89; PULSE 75; RESP 18; TEMP 36.7; O2SAT 97
--- NOTE | 2020-08-28 08:10 | HMH.ACPN2 ---
<Tianna Pérez - Last Filed: 08/28/20 08:10> Internal Medicine - PN: Subj *Date: 08/28/20 *Time: 08:10 Interval history: Patient does call me by name as it entered the room. She has very poor memory. She does not know if she can walk. Breakfast was sitting in front of her and she has eaten a little bit. She states she sits in the chair most of the time. Per nursing: She is incontinent of stool and urine. CBC is normal today. Blood chemistries with a sodium of 141 and potassium of 3.9 BUN is 23 and creatinine 0.8. Exam Vital signs and Labs for Last 24 Hours: Temp Pulse Resp BP Pulse Ox 97.9 F 72 16 150/79 H 94 L 08/28/20 04:00 08/28/20 04:00 08/28/20 04:00 08/28/20 04:00 08/28/20 04:00 Laboratory Results - last 24 hr 08/27/20 11:57: POC Glucose 94 08/27/20 17:15: POC Glucose 102 08/27/20 20:55: POC Glucose 80 08/28/20 05:52: POC Glucose 87 08/28/20 06:32: WBC 7.0, RBC 4.41, Hgb 13.1, Hct 40.1, MCV 91.0, MCH 29.7, MCHC 32.6, RDW 12.1, Plt Count 204, MPV 8.1, Neut % (Auto) 64.3, Lymph % (Auto) 26.6, [place] % (Auto) 7.5, Eos % (Auto) 0.9, Baso % (Auto) 0.6, Neut # (Auto) 4.5, Lymph # (Auto) 1.9, [place] # (Auto) 0.5, Eos # (Auto) 0.1, Baso # (Auto) 0.0 08/28/20 06:32: Sodium 141, Potassium 3.9, Chloride 114 H, Carbon Dioxide 19 L, Anion Gap 11.9, BUN 23 H, Creatinine 0.80, Estimated Creat Clear 73, Estimated GFR 74, Est GFR ( Amer) 89, Glucose 91, Calcium 9.5, Total Bilirubin 0.6, AST 49 H, ALT 31, Alkaline Phosphatase 96, Total Protein 6.9, Albumin 3.9, Globulin 3.0, Albumin/Globulin Ratio 1.3, Lipase 59 I & O for Last 24 hours: Intake & Output 08/25/20 08/26/20 08/27/20 08/28/20 11:59 11:59 11:59 11:59 Intake Total 1240 / 1240 240 / 240 Balance 1240 / 1240 240 / 240 Weight 145 lb 133 lb 5 oz 131 lb 9 oz - Constitutional no acute distress Comments: Cannot for exam. Is sitting in the chair and appears comfortable. She does call me by name. - *Routine Respiratory Exam Present: CTA bilaterally (Anteriorly and posteriorly) - *Routine Cardiovascular Exam Present: RRR - *Routine Abdominal Exam Present: soft, normoactive bowel sounds. Absent: tenderness - *Routine Extremities Exam Absent: edema - *Routine Neurological Exam Present: alert Oriented to name and place Assessment and Plan (1) Type 2 diabetes mellitus Status: Acute Category: Medical Code(s): E11.9 - Type 2 diabetes mellitus without complications (2) Altered mental status Status: Acute Qualifiers: Altered mental status type: disorientation Qualified Code(s): R41.0 - Disorientation, unspecified Category: Medical Code(s): R41.82 - Altered mental status, unspecified (3) Methamphetamine abuse Status: Acute Category: Medical Code(s): F15.10 - Other stimulant abuse, uncomplicated (4) Chronic mixed headache syndrome Status: Acute Category: Medical Code(s): G44.89 - Other headache syndrome (5) History of CVA (cerebrovascular accident) Status: Acute Category: Medical Code(s): Z86.73 - Personal history of transient ischemic attack (TIA), and cerebral infarction without residual deficits (6) Hypertension Status: Acute Qualifiers: Hypertension type: essential hypertension Qualified Code(s): I10 - Essential (primary) hypertension Category: Medical Code(s): I10 - Essential (primary) hypertension (7) Tardive dyskinesia Status: Acute Category: Medical Code(s): G24.01 - Drug induced subacute dyskinesia (8) Psychosis Status: Acute Category: Medical Code(s): F29 - Unspecified psychosis not due to a substance or known physiological condition - Assessment and plan all Dx Assessment and Plan for all problems:: Toxicology test not performed due to being too high. Has been sent off to consulting lab and is pending. For now continue with current care. <Vasu Gutierres - Last Filed: 08/28/20 08:22> Internal Medicine - PN: Subj *Date:
[2020-08-28 11:14] LABS: POC Glucose,Bedside 92 (70-110)
--- NOTE | 2020-08-28 11:15 | HMH.PTEV ---
Physical Therapy Evaluation Rehab PT IP Evaluation Start: 08/28/20 08:10 Freq: ONCE Status: Active Protocol: Document 08/28/20 11:03 BRITTNEYCHRIS (Rec: 08/28/20 11:14 ANAGUNNAR [id number]) Subjective/History History History Citlali is a 55-year-old white female with a history of hypertension, type 2 diabetes mellitus, chronic migraine headaches, old CVA, meningioma , tardive dyskinesia, methamphetamine abuse, and depression. She was apparently found at her apartment yesterday with altered mental status and brought to the emergency room by ambulance. In the ER, she was confused and had periods of agitation. She was asking for her mother who is . Work-up in emergency room showed essentially normal blood work and urinalysis. Her urine drug screen apparently showed amphetamines although the report in the chart shows TNP and the test was sent out for confirmation which is still pending. She had a recent outpatient MRI on 08/22/2020 which reportedly showed no acute intracranial findings. With her essentially negative work-up in the ER, the initial plan was to send her home, however her friend refused to take her home in her present condition since she lives alone and did not feel she was safe to be alone. She was subsequent admitted for further observation. She essentially slept most of the night last night although did awaken a couple of times with agitation and was redirected. At the time of my exam this morning, I awakened her from sleep. She knows my
--- NOTE | 2020-08-28 14:21 | SW/DCPLANNER ---
Addendum entered by [facility] 08/31/20 10:59: Marichuy has stated this insurance has approved this patient. I spoke with Mildred at [facility] this morning and they can accept this patient for today. Komal with [facility] has confirmed transport truck can transport this patient. Dr Gutierres with put in all discharge orders and summary this morning. COVID swab is negative for this patient on 08/30/20. Patient will discharge today. Addendum entered by [facility] 08/30/20 13:36: I have spoke with Marichuy from [facility]: still waiting to hear back from insurance at this time. Addendum entered by [facility] 08/30/20 13:16: Patients friend (Robbi Ascencio) will assist patient in paying her rent at the [facility] for this month due to discharging to [facility]. Addendum entered by [facility] 08/30/20 09:19: I have spoke with Marichuy from [facility] regarding this patient: patients insurance is still reviewing patient information for approval. I will continue to follow up with Jb and patient. Addendum entered by [facility] 08/29/20 14:19: Prior authorization has been started for this patient per Marichuy. Addendum entered by [facility] 08/29/20 13:36: Marichuy with [facility] has stated that she can accept this patient pending prior auth (has been started). Patient stated that she needs to speak with MD prior to making decision. Dr Gandhi has stated that he can accept this patient at [facility]. Addendum entered by [facility] 08/29/20 09:49: At this time patient information has been faxed to [place] with [facility] and Marichuy with [facility] to review: both facilities are in network with patients insurance. I will follow up once patient information is reviewed. Discharge date is unknown at this time. Original Note: I have spoke with this patient regarding discharge plans: patient resides at home alone and has a friend that checks on her often. I spoke with patient regarding placement vs drug/alcohol rehab vs home health. Patient clearly stated that she is not interested in any resources at this time. Patient stated that she is not interested in a nurse coming into her home at this time either. Discharge date is unknown at this time. Patient does drift in and out of sleep quite often. I will continue to follow up with this patient and MD until patient is medically stable for discharge.
--- NOTE | 2020-08-28 15:03 | HMH.BHCONS ---
*Admission Date: 08/27/20 *Reason for consult:: confusion *History of present illness: I interviewed patient at her bedside; she was sitting up in the reclining chair. -she is not sure how she got here -who called EMS -nothing -she states that she lives alone ORIENTATION QUESTIONS: -It is -April -2020 -president--not sure -she is at [facility] -immediate recall is 3/3 -3 minute recall--2/3 -able to name objects around her room without difficulty -able to spell the word 'world' -would not attempt to spell this backwards -can repeat without difficulty; no ifs ands or butts -asked her birthday -knew the month and day; could not tell me the year She states that she has had terrible anxiety and depression her entire life. -states that she had a good childhood -but would not go into detail here -denies any alcohol or drug use -she states that she has had 3 brain surgeries; this is when the anxiety and depression got really bad I wanted to know about safety at her house. She is confused and lives alone. -she tells he she does not work -she does not know how she gets money to pay her bills -doesn't know who pays her bills -she does not drive -minimal family support -she states that she doesn't know how she gets to the store -she does get food stamps to pay for her food -but cannot tell me if there is food in her house right now She lives on the 3rd floor at the [facility]. -this is very concerning -it does not appear that she would safely be able to get out of the apartment building should there be an emergency. RECOMMENDATION: 1. I do not feel she is safe to return home alone. -she either needs 24 hour care; that is reliable -or rehab to get her mobility better -may need jail placement in a nursing facility TIME IN: 1115 TIME OUT: 1150 [facility] History Medical History: Reports:: Anxiety, Arrhythmia, Cancer, Chronic Obstructive Pulmonary Disease (COPD), Coronary Artery Disease, Cerebrovascular Accident (intraoperative), Deep Vein Thrombosis, Depression, Diabetes Mellitus Type 2, Hyperlipidemia, Hypertension, Migraine Denies:: Diabetes Mellitus Type 1, Internal Pacemaker, MRSA, Seizures *Have you ever received a pneumonia vaccine?: No *Have you received a flu vaccine this season?: No Other Medical History: Reports: Arthritis, Hypothyroidism, Sinus Problems, Thyroid Disease, Other (Chronic headache syndrome, benign meningioma) Laterality Cases: Right: Lumpectomy, Bilateral: Other Other Surgeries: Yes: Cardiac Catheterization, Tubal Ligation, Other (DREZ procedure x 2; excision of meningioma). No: Pacemaker Amputation: No Fractures: No - *Social History Last grade of school completed: High school graduate Smoking Status: Current every day smoker Tobacco Type: cigarettes # Packs/Day (cigarettes): 1 Alcohol Intake: current Alcohol Intake Frequency:: a few times a week Substance Use Type: methamphetamine *Occupational Status:: disabled Housing: apartment Household Members: other *Travel in the last 8 weeks: None - Psychiatric History Pschychiatric History:: Reports:: Anxiety, Depression Family Hx:: Asthma, Cancer, Diabetes, Hyperlipidemia, Hypertension, Stroke Review of Systems - *Neurologic Reports confusion, Reports headache(s) Meds Home Medications Medication Instructions Recorded Confirmed Type Cholecalciferol (Vitamin D3) 5,000 unit PO DAILY 07/25/17 08/27/20 History [Vitamin D3] Desvenlafaxine Succinate [Pristiq] 50 mg PO HS 07/25/17 08/27/20 History Promethazine HCl [Phenergan 25mg 25 mg PO Q6HP PRN 07/25/17 08/27/20 History tab] Tizanidine HCl [Zanaflex] 4 mg PO TIDP PRN 07/25/17 08/27/20 History pregabalin 200 mg capsule 200 mg PO TID 30 Days 09/09/17 08/27/20 History trazodone 150 mg tablet 150 mg PO HS 30 Days 09/09/17 08/27/20 History atorvastatin 80 mg tablet 80 mg PO HS 30 Days #30 tab 06/29/18 08/27/20 History metformin 500 mg tablet,extended 500 mg PO BID 30 Days tab
[2020-08-28 15:10] VITALS: BMI 21.7
[2020-08-28 15:58] VITALS: BP 146/72; PULSE 78; RESP 16; TEMP 36.8; O2SAT 98
[2020-08-28 17:17] LABS: POC Glucose,Bedside 83 (70-110)
--- NOTE | 2020-08-28 18:11 | PC.NURSE ---
patient has done okay this shift. has slept most of day in chair and in bed. vitals have been stable. ate a little. still remains confused. has been incontinent at times.
[2020-08-28 19:30] VITALS: BP 133/69; PULSE 70; RESP 18; O2SAT 95
[2020-08-28 20:00] VITALS: BP 186/86; PULSE 74; RESP 16; TEMP 36.9; O2SAT 93
[2020-08-28 20:30] VITALS: BP 128/61; PULSE 70; RESP 18; O2SAT 94
[2020-08-28 21:01] LABS: POC Glucose,Bedside 161 (70-110)
[2020-08-29] VITALS: BP 160/78
[2020-08-29 04:00] VITALS: BP 192/91; PULSE 59; RESP 15; TEMP 36.9; O2SAT 96
--- NOTE | 2020-08-29 04:17 | PC.NURSE ---
pt has had no acute changes. iv patent. alert and oriented. ambulated to bathroom with standby assist. bp was elevated 186/86 manually at 1999 and stated headache. prn tylenol given with relief. rechecked manual at 0000 160/78. pt has slept this shift. call light in reach. will continue to monitor
[2020-08-29 05:22] VITALS: BMI 22.1
[2020-08-29 06:06] LABS: POC Glucose,Bedside 77 (70-110)
[2020-08-29 08:00] VITALS: BP 183/92; PULSE 70; RESP 18; TEMP 36.5; O2SAT 94
--- NOTE | 2020-08-29 08:19 | HMH.ACPN2 ---
<Tianna Pérez - Last Filed: 08/29/20 08:36> Internal Medicine - PN: Subj *Date: 08/29/20 *Time: 08:36 Interval history: Patient states that she has a severe headache. Blood pressure is noted to be elevated today too. She denies chest pain and shortness of breath. She does not know anything about what went on yesterday. She states she did not sleep last night. She does not know if she ate anything yesterday. She does not want breakfast. She has been sitting up in a recliner. She does need help with ambulation due to unsteady gait. PT and psych notes reviewed and appreciated. When asked patient does not know what she is going to do at discharge. Care management has been talking with patient as well. Exam Vital signs and Labs for Last 24 Hours: Temp Pulse Resp BP Pulse Ox 97.7 F 70 18 183/92 H 94 L 08/29/20 08:00 08/29/20 08:00 08/29/20 08:00 08/29/20 08:00 08/29/20 08:00 Laboratory Results - last 24 hr 08/28/20 11:03: POC Glucose 92 08/28/20 17:10: POC Glucose 83 08/28/20 20:50: POC Glucose 161 H 08/29/20 05:58: POC Glucose 77 I & O for Last 24 hours: Intake & Output 08/26/20 08/27/20 08/28/20 08/29/20 11:59 11:59 11:59 11:59 Intake Total 1240 / 1240 360 / 360 2511 / 2511 Balance 1240 / 1240 360 / 360 2511 / 2511 Weight 145 lb 133 lb 5 oz 131 lb 9 oz 133 lb 4 oz - Constitutional no acute distress Comments: Answers all questions and is easily understood. Had difficulty assisting with exam. - *Routine Respiratory Exam Present: CTA bilaterally (Anteriorly and posteriorly) - *Routine Cardiovascular Exam Present: RRR - *Routine Abdominal Exam Present: soft, normoactive bowel sounds. Absent: tenderness, distended - *Routine Extremities Exam Absent: edema, calf tenderness - *Routine Neurological Exam Present: alert, oriented X3, moving all extremities. Absent: tremors - Routine Psychiatric Exam Present: cooperative, depressed. Absent: normal thought process (Slow), good insight, good judgment Assessment and Plan (1) Type 2 diabetes mellitus Status: Acute Category: Medical Code(s): E11.9 - Type 2 diabetes mellitus without complications (2) Altered mental status Status: Acute Qualifiers: Altered mental status type: disorientation Qualified Code(s): R41.0 - Disorientation, unspecified Category: Medical Code(s): R41.82 - Altered mental status, unspecified (3) Methamphetamine abuse Status: Acute Category: Medical Code(s): F15.10 - Other stimulant abuse, uncomplicated (4) Chronic mixed headache syndrome Status: Acute Category: Medical Code(s): G44.89 - Other headache syndrome (5) History of CVA (cerebrovascular accident) Status: Acute Category: Medical Code(s): Z86.73 - Personal history of transient ischemic attack (TIA), and cerebral infarction without residual deficits (6) Hypertension Status: Acute Qualifiers: Hypertension type: essential hypertension Qualified Code(s): I10 - Essential (primary) hypertension Category: Medical Code(s): I10 - Essential (primary) hypertension (7) Tardive dyskinesia Status: Acute Category: Medical Code(s): G24.01 - Drug induced subacute dyskinesia (8) Psychosis Status: Acute Category: Medical Code(s): F29 - Unspecified psychosis not due to a substance or known physiological condition (9) Gait abnormality Status: Suspected Category: Medical Code(s): R26.9 - Unspecified abnormalities of gait and mobility (10) Headache Status: Chronic Qualifiers: Headache type: unspecified Headache chronicity pattern: acute headache Intractability: not intractable Qualified Code(s): R51.9 - Headache, unspecified Category: Medical Code(s): R51 - Headache - Assessment and plan all Dx Assessment and Plan for all problems:: Patient has been started back on blood pressure medicine And will be giving you Ubrelvy for her headache. Care management wor
[2020-08-29 15:36] VITALS: BP 178/84; PULSE 75; RESP 18; TEMP 36.6; O2SAT 92
[2020-08-29 19:46] LABS: POC Glucose,Bedside 178 (70-110)
[2020-08-29 20:00] VITALS: BP 153/85; PULSE 69; RESP 19; TEMP 36.6; O2SAT 95
--- NOTE | 2020-08-29 20:54 | PC.NURSE ---
patient has had a good day. has been more alert and oriented than previous day. has been independent in room some stand by assistance. did not complain of headache till later in shift. did encourage glucerna if she felt she wouldnt eat. vitals stable.
[2020-08-29 21:13] LABS: POC Glucose,Bedside 147 (70-110)
[2020-08-30] VITALS: BMI 21.5
[2020-08-30 04:00] VITALS: BP 149/85; PULSE 64; RESP 16; TEMP 36.9; O2SAT 96
--- NOTE | 2020-08-30 05:15 | PC.NURSE ---
pt has rested well throughout shift, no complaints of pain or discomfort, lungs remain clear, heart rate regular, no edema noted, bs x 4 quads, pt has been drowsy but will arouse to name and can carry on a conversation but then will fall quickly back to sleep, vss, pt ambulating in room without difficulty no needs at this time, will continue to monitor
[2020-08-30 05:56] LABS: POC Glucose,Bedside 135 (70-110)
[2020-08-30 08:00] VITALS: BP 142/88; PULSE 73; RESP 18; TEMP 36.6; O2SAT 96
--- NOTE | 2020-08-30 08:24 | HMH.ACPN2 ---
<Latesha Menendez - Last Filed: 08/30/20 08:24> Internal Medicine - PN: Subj *Date: 08/30/20 *Time: 08:24 Interval history: Patient states she feels about the same this morning. She states her headache might be as tiny bit better. She denies any other pain. She states she was up and down all night sleeping about an hour at a time. Exam Vital signs and Labs for Last 24 Hours: Temp Pulse Resp BP Pulse Ox 97.8 F 73 18 142/88 H 96 08/30/20 08:00 08/30/20 08:00 08/30/20 08:00 08/30/20 08:00 08/30/20 08:00 Laboratory Results - last 24 hr 08/29/20 17:16: POC Glucose 178 H 08/29/20 20:57: POC Glucose 147 H 08/30/20 05:44: POC Glucose 135 H I & O for Last 24 hours: Intake & Output 08/27/20 08/28/20 08/29/20 08/30/20 11:59 11:59 11:59 11:59 Intake Total 1240 / 1240 360 / 360 2511 / 2511 600 / 600 Balance 1240 / 1240 360 / 360 2511 / 2511 600 / 600 Weight 133 lb 5 oz 131 lb 9 oz 133 lb 4 oz 129 lb 5 oz - Constitutional no acute distress - *Routine Respiratory Exam Present: CTA bilaterally - *Routine Cardiovascular Exam Present: RRR - *Routine Abdominal Exam Present: soft, normoactive bowel sounds. Absent: tenderness - *Routine Extremities Exam Absent: cyanosis, clubbing, edema - *Routine Skin Exam Present: warm. Absent: rash - *Routine Neurological Exam Present: alert, oriented X3 Assessment and Plan (1) Type 2 diabetes mellitus Status: Acute Category: Medical Code(s): E11.9 - Type 2 diabetes mellitus without complications (2) Altered mental status Status: Acute Qualifiers: Altered mental status type: disorientation Qualified Code(s): R41.0 - Disorientation, unspecified Category: Medical Code(s): R41.82 - Altered mental status, unspecified (3) Methamphetamine abuse Status: Acute Category: Medical Code(s): F15.10 - Other stimulant abuse, uncomplicated (4) Chronic mixed headache syndrome Status: Acute Category: Medical Code(s): G44.89 - Other headache syndrome (5) History of CVA (cerebrovascular accident) Status: Acute Category: Medical Code(s): Z86.73 - Personal history of transient ischemic attack (TIA), and cerebral infarction without residual deficits (6) Hypertension Status: Acute Qualifiers: Hypertension type: essential hypertension Qualified Code(s): I10 - Essential (primary) hypertension Category: Medical Code(s): I10 - Essential (primary) hypertension (7) Tardive dyskinesia Status: Acute Category: Medical Code(s): G24.01 - Drug induced subacute dyskinesia (8) Psychosis Status: Acute Category: Medical Code(s): F29 - Unspecified psychosis not due to a substance or known physiological condition (9) Gait abnormality Status: Suspected Category: Medical Code(s): R26.9 - Unspecified abnormalities of gait and mobility (10) Headache Status: Chronic Qualifiers: Headache type: unspecified Headache chronicity pattern: acute headache Intractability: not intractable Qualified Code(s): R51.9 - Headache, unspecified Category: Medical Code(s): R51 - Headache - Assessment and plan all Dx Assessment and Plan for all problems:: Note from Citlali Manrique reviewed. Care management is working on [facility]. <Vasu Gutierres - Last Filed: 08/30/20 09:08> Internal Medicine - PN: Subj *Date: 08/30/20 *Time: 09:06 Exam Vital signs and Labs for Last 24 Hours: Temp Pulse Resp BP Pulse Ox 97.8 F 73 18 142/88 H 96 08/30/20 08:00 08/30/20 08:00 08/30/20 08:00 08/30/20 08:00 08/30/20 08:00 Laboratory Results - last 24 hr 08/29/20 17:16: POC Glucose 178 H 08/29/20 20:57: POC Glucose 147 H 08/30/20 05:44: POC Glucose 135 H I & O for Last 24 hours: Intake & Output 08/27/20 08/28/20 08/29/20 08/30/20 11:59 11:59 11:59 11:59 Intake Total 1240 / 1240 360 / 360 2511 / 2511 600 / 600 Balance 1240 / 1240 360 / 360 2511
--- NOTE | 2020-08-30 09:23 | DIET.NUTRFU ---
PO intakes 50% + BUD supplements, BG moderate, avg. 130, weight stable. Pt on soft diabetic diet, continuing to monitor.
[2020-08-30 12:14] LABS: POC Glucose,Bedside 166 (70-110)
[2020-08-30 16:00] VITALS: BP 174/94; PULSE 66; RESP 16; TEMP 36.7; O2SAT 96
[2020-08-30 16:41] LABS: POC Glucose,Bedside 114 (70-110)
[2020-08-30 20:00] VITALS: BP 176/95; PULSE 72; RESP 18; TEMP 36.4; O2SAT 96
[2020-08-30 22:15] LABS: POC Glucose,Bedside 186 (70-110)
[2020-08-31 04:00] VITALS: BP 93/63; PULSE 69; RESP 17; TEMP 36.6; O2SAT 96
[2020-08-31 05:11] VITALS: BMI 21.9
[2020-08-31 08:00] VITALS: BP 146/79; PULSE 72; RESP 18; TEMP 36.7; O2SAT 96
--- NOTE | 2020-08-31 08:43 | HMH.ACPN2 ---
<Latesha Menendez - Last Filed: 08/31/20 08:43> Internal Medicine - PN: Subj *Date: 08/31/20 *Time: 08:43 Interval history: Patient is still complaining of a headache this morning. She states it may be a little worse than it was yesterday. She was able to rest last night and denies any other pain. She ate most of her breakfast this morning. Exam Vital signs and Labs for Last 24 Hours: Temp Pulse Resp BP Pulse Ox 97.8 F 69 17 93/63 L 96 08/31/20 04:00 08/31/20 04:00 08/31/20 04:00 08/31/20 04:00 08/31/20 04:00 Laboratory Results - last 24 hr 08/30/20 12:07: POC Glucose 166 H 08/30/20 16:35: POC Glucose 114 H 08/30/20 21:14: POC Glucose 186 H I & O for Last 24 hours: Intake & Output 08/28/20 08/29/20 08/30/20 08/31/20 11:59 11:59 11:59 11:59 Intake Total 360 / 360 2511 / 2511 600 / 600 720 / 720 Balance 360 / 360 2511 / 2511 600 / 600 720 / 720 Weight 131 lb 9 oz 133 lb 4 oz 129 lb 5 oz 131 lb 4 oz Microbiology Reports for the Last 24 Hours: Microbiology 08/30/20 11:07 Nasopharyngeal Coronavirus COVID-19 PCR - Final - Constitutional no acute distress - *Routine Respiratory Exam Present: CTA bilaterally - *Routine Cardiovascular Exam Present: RRR - *Routine Abdominal Exam Present: soft, normoactive bowel sounds. Absent: tenderness - *Routine Extremities Exam Absent: cyanosis, clubbing, edema - *Routine Skin Exam Present: warm. Absent: rash - *Routine Neurological Exam Present: alert, oriented X3 Assessment and Plan (1) Altered mental status Status: Acute Qualifiers: Altered mental status type: disorientation Qualified Code(s): R41.0 - Disorientation, unspecified Category: Medical Code(s): R41.82 - Altered mental status, unspecified (2) Methamphetamine abuse Status: Acute Category: Medical Code(s): F15.10 - Other stimulant abuse, uncomplicated (3) Type 2 diabetes mellitus Status: Acute Category: Medical Code(s): E11.9 - Type 2 diabetes mellitus without complications (4) Chronic mixed headache syndrome Status: Acute Category: Medical Code(s): G44.89 - Other headache syndrome (5) History of CVA (cerebrovascular accident) Status: Acute Category: Medical Code(s): Z86.73 - Personal history of transient ischemic attack (TIA), and cerebral infarction without residual deficits (6) Hypertension Status: Acute Qualifiers: Hypertension type: essential hypertension Qualified Code(s): I10 - Essential (primary) hypertension Category: Medical Code(s): I10 - Essential (primary) hypertension (7) Tardive dyskinesia Status: Acute Category: Medical Code(s): G24.01 - Drug induced subacute dyskinesia (8) Psychosis Status: Acute Category: Medical Code(s): F29 - Unspecified psychosis not due to a substance or known physiological condition (9) Gait abnormality Status: Suspected Category: Medical Code(s): R26.9 - Unspecified abnormalities of gait and mobility (10) Headache Status: Chronic Qualifiers: Headache type: unspecified Headache chronicity pattern: acute headache Intractability: not intractable Qualified Code(s): R51.9 - Headache, unspecified Category: Medical Code(s): R51 - Headache - Assessment and plan all Dx Assessment and Plan for all problems:: Still waiting on placement at a [facility] facility. <Vasu Gutierres - Last Filed: 08/31/20 12:53> Internal Medicine - PN: Subj *Date: 08/31/20 *Time: 12:52 Exam Vital signs and Labs for Last 24 Hours: Temp Pulse Resp BP Pulse Ox 98.0 F 72 18 146/79 H 96 08/31/20 08:00 08/31/20 08:00 08/31/20 08:00 08/31/20 08:00 08/31/20 08:00 Laboratory Results - last 24 hr 08/30/20 16:35: POC Glucose 114 H 08/30/20 21:14: POC Glucose 186 H I & O for Last 24 hours: Intake & Output 08/29/20 08/30/20 08/31/20 09/01/20 11:59 11:59 11:59 11:59 Intake Total 2511 / 2511 600 / 60
--- NOTE | 2020-08-31 08:45 | PC.NURSE ---
Pt has rested well during the night and has no acute c/o throughout shift. Lungs CTA. Pt A&Ox4 and VSS. Call light within reach.
--- NOTE | 2020-08-31 10:56 | HMH.DCSUM ---
General - General Admission date:: 08/26/20 <Vasu Gutierres - 08/31/20 12:59> 08/26/20 <Latesha Menendez - 08/31/20 11:06> Discharge date: 08/31/20 <GemmaLatesha - 08/31/20 11:06> HPI HPI: Citlali is a 55-year-old white female with a history of hypertension, type 2 diabetes mellitus, chronic migraine headaches, old CVA, meningioma, tardive dyskinesia, methamphetamine abuse, and depression. She was apparently found at her apartment yesterday with altered mental status and brought to the emergency room by ambulance. In the ER, she was confused and had periods of agitation. She was asking for her mother who is . Work-up in emergency room showed essentially normal blood work and urinalysis. Her urine drug screen apparently showed amphetamines although the report in the chart shows TNP and the test was sent out for confirmation which is still pending. She had a recent outpatient MRI on 08/22/2020 which reportedly showed no acute intracranial findings. With her essentially negative work-up in the ER, the initial plan was to send her home, however her friend refused to take her home in her present condition since she lives alone and did not feel she was safe to be alone. She was subsequently admitted for further observation. She essentially slept most of the night last night although did awaken a couple of times with agitation and was redirected. At the time of my exam this morning, I awakened her from sleep. She knows my name and knows that she is in the hospital but cannot tell me the date, why she is here, or how she got here. She is asking if her parents are here. I explained that they are both and she became upset. She tells me she has been having stomach pain and diarrhea for a few days although this was not a complaint or an observed finding in the ER or since admission to the floor. <Latesha Menendez - 08/31/20 11:06> Hospital Course Hospital Course: The patient's head CT showed nothing acute. She was admitted for her altered mental status with the most likely etiology being drug abuse. Her drug screen results are still pending. She was not showing signs of acute intoxication or withdrawal. She was continued on IV fluids and Haldol was added along with as needed Ativan for agitation. Citlali Manrique was consulted to see the patient. She saw the patient and did not feel she was safe to return home alone. She felt she either needed 24-hour care, rehab, or long-term placement in a nursing facility. The patient did begin feeling a little bit better. She remained very weak and was incontinent of stool and urine. She continued to complain of a headache. A physical therapy evaluation was ordered. They did not feel she was capable of using assistive devices appropriately due to her mental confusion and dyskinesia. They felt she would need continued care. The patient's headache persisted and her blood pressure was elevated. She was started back on her blood pressure medicine and it improved. She complained of pain and stiffness in her neck and was given tizanidine, which helped. She had no memory of the events leading up to her hospitalization. It was felt she would benefit most from skilled care placement for acute rehab in hopes that she would be able to return to her previous level of function in a few weeks. The patient was in agreement and care management contacted [facility] who agreed to accept the patient. Her insurance approved placement at [facility] and she will be discharged there today. She had a negative covid nasal swab on 08/30/20. <Latesha Menendez - 08/31/20 11:06> Objective Vital signs: Temp Pulse Resp BP Pulse Ox 98.0 F 72 18 146/79 H 96 08/31/20 08:00 08/31/20 08:00 08/31/20 08:00 08/31/20 08:00 08/31/20 08:00 <Vasu Gutierres - 08/31/20 12:59> Temp Pulse Resp BP Pulse Ox 98.0 F 72 18 146/79 H 96
[2020-08-31 18:13] LABS: Amphetamine Positive (.); Amphetamines Positive (.); Methamphetamine Positive (.)
[2020-08-31 19:47] LABS: Amphetamine (GC/MS) >3000 ng/mL (Cutoff=500); Methamphetamine (GC/MS) >3000 ng/mL (Cutoff=500)
== END 2020-08-31 12:43 ==
LOC: ER 12:39 → 2ND 12:47
PROVIDERS: Admitting Provider Family Medicine; Emergency Provider Emergency Medicine; PCP Family Medicine; Visit Provider Family Medicine
DX: F29 Unspecified psychosis not due to a substance or known physiological condition (principal); R41.82 Altered mental status, unspecified; E11.9 Type 2 diabetes mellitus without complications; I10 Essential (primary) hypertension; I25.10 Atherosclerotic heart disease of native coronary artery without angina pectoris; Z72.0 Tobacco use; E03.9 Hypothyroidism, unspecified; G24.01 Drug induced subacute dyskinesia; R26.9 Unspecified abnormalities of gait and mobility; G44.89 Other headache syndrome; Z86.73 Personal history of transient ischemic attack (TIA), and cerebral infarction without residual deficits; Z88.0 Allergy status to penicillin; Z88.1 Allergy status to other antibiotic agents; Z88.2 Allergy status to sulfonamides; Z88.5 Allergy status to narcotic agent; Z88.8 Allergy status to other drugs, medicaments and biological substances; Z79.899 Other long term (current) drug therapy; F15.10 Other stimulant abuse, uncomplicated
CPT/HCPCS: 36415; 70450; 80048; 80053; 80305; 80324; 80329; 81001; 82962; 83690; 85025; 96365; 96375; 96376; 97116; 97162; 97530; 99282; G0378; U0003

== ENCOUNTER → 2020-11-29 15:02 | Outpatient (CLI) | payer MEDICARE, MEDICAID, SELFPAY ==
--- NOTE | 2020-11-29 15:05 | CT_ITS ---
PROCEDURE: CT HEAD/BRAIN WO CON CLINICAL INDICATION: history of craniotomy, tumor resection, meningioma COMPARISON: CT CT HEAD/BRAIN WO CON from 04/26/[address] HEAD/BRAIN WO CON from 08/26/2020 TECHNIQUE: Unenhanced CT head with axial images obtained. Dose modulation, automated exposure control, and/or iterative reconstruction were used for dose reduction FINDINGS: Focal areas of encephalomalacia is noted in the left parietal, right frontal, and right cerebellar hemisphere, demonstrate no significant interval change compared to the prior study no acute intra or extra-axial hemorrhage, space occupying lesion or acute infarct is noted. The ventricles are normal in size, shape and symmetry. There is no space-occupying mass or abnormal enhancement. The jones-white differentiation is otherwise well preserved throughout, with no evidence of acute infarct. Volume: Brain parenchymal volume is appropriate for age. Periventricular and subcortical white matter hypodensities are noted, may represent microvascular changes. Atherosclerotic vascular calcification is noted. Osseous postsurgical changes with the left craniotomy is noted. No evidence of acute fractures. Sinuses: The paranasal sinuses are clear Mastoids: Mastoid air cells are clear. IMPRESSION: 1. No evidence of acute intracranial process. Encephalomalacia in the left parietal, right frontal and right cerebellar hemispheres, may represent sequela of prior infarcts. 2. Generalized volume loss, chronic microvascular ischemic changes, and atherosclerotic disease. Dictated by: Marissa Mayen 11/29/2020 15:45 Marissa Mayen in OV 11/29/2020 15:45
== END ==
PROVIDERS: PCP Family Medicine; Visit Provider Specialist
DX: H70.92 Unspecified mastoiditis, left ear (principal); R51.9 Headache, unspecified
CPT/HCPCS: 70450

== ENCOUNTER 2021-02-14 12:26 | Emergency (ER) | payer MEDICARE, MEDICAID, SELFPAY ==
[2021-02-14 12:27] VITALS: BP 191/125; PULSE 74; RESP 16; TEMP 37; O2SAT 97; BMI 23.8
[2021-02-14 12:54] VITALS: BP 131/80; PULSE 75; RESP 18; O2SAT 96; BMI 28.3
--- NOTE | 2021-02-14 13:19 | HMH.EDGENADL ---
ED Disposition Clinical Impression: Migraine headache Qualifiers: Migraine type: with aura Status migrainosus presence: without status migrainosus Intractability: not intractable Qualified Code(s): G43.109 - Migraine with aura, not intractable, without status migrainosus Disposition: Home, Self-Care Condition on Discharge: Good Instructions: DI for Migraine Additional Instructions: You have been evaluated for migraine headache. Please take all medications as prescribed. Keep a headache journal. Avoid migraine triggers. Follow-up with your neurologist. Return to the emergency department at once for any new or worsening symptoms. Referrals: Vasu Gutierres MD [Primary Care Provider] - Time of Disposition: 16:21 - Critical Care Critical Care Time: No Attestation: On , the high probability of a clinically significant, sudden or life threatening deterioration of the following system(s) required my full and direct attention, intervention and personal management. The time I documented below is in addition to time spent performing reported procedures but includes the following listed in this critical care notation. Medical Decision Making - Medical Records Medical records reviewed: Yes: I reviewed the patient's medical records. - Corey Inquiry Pt receiving controlled substance: No Vital Signs: 02/14/21 12:27 02/14/21 12:54 Temperature 98.6 F Temperature Source Oral Pulse Rate [Left] 74 75 Respiratory Rate 16 18 Blood Pressure [Right Arm] 191/125 H 131/80 Blood Pressure Mean [Right Arm] 147 97 Blood Pressure Source [Right Arm] Automatic Cuff Automatic Cuff Blood Pressure Position [Right Arm] Sitting Sitting 02 Sat by Pulse Oximetry 97 96 Oxygen Delivery Method Room Air Orders (Tests/Meds): ED MEDICATIONS Generic Name Dose Route Start Last Admin Trade Name Freq PRN Reason Stop Dose Admin Sodium Chloride 1,000 mls @ 500 mls/hr 02/14/21 13:15 02/14/21 13:25 Sod Chlor 0.9% 1000ml Bag IV 03/16/21 13:14 500 mls/hr .Q2H ZANDER Administration Discontinued Medications Generic Name Dose Route Start Last Admin Trade Name Freq PRN Reason Stop Dose Admin Butorphanol Tartrate 3 mg 02/14/21 13:07 02/14/21 13:25 Butorphanol Tartrate 1 Mg/Ml Vial IV 02/14/21 13:08 Not Given ONCE ONE Butorphanol Tartrate 1 mg 02/14/21 13:10 02/14/21 13:25 Butorphanol Tartrate 1 Mg/Ml Vial IV 02/14/21 13:11 1 mg ONCE ONE Administration Butorphanol Tartrate 1 mg 02/14/21 15:55 02/14/21 16:10 Butorphanol Tartrate 1 Mg/Ml Vial IV 02/14/21 15:56 1 mg ONCE ONE Administration Promethazine HCl 25 mg 02/14/21 13:08 02/14/21 13:25 Promethazine Hcl 25mg/Ml 1ml Vial IV 02/14/21 13:09 25 mg ONCE ONE Administration Sodium Chloride 25 ml 02/14/21 13:08 02/14/21 13:25 Sodium Chloride 0.9% 25ml Bag IV 02/14/21 13:09 25 ml ONCE ONE Administration Medical Decision Narrative: In summary this is a 55-year-old female with history of migraine headaches, depression, meningioma presenting to the emergency department with headache. Patient clinically stable on arrival. Vital signs within normal limits. She is conversational. States this headache is very similar in character to her prior migraine headaches. She simply is not able to manage her symptoms at home. She specifically requested pain medication, Stadol. Requested Phenergan. Will treat symptomatically and reassess. On reassessment, after medication patient was feeling somewhat better. Headache had decreased some, but not 50%. Given additional 1 mg of Stadol. After second dose of medication she was feeling much better. Able to ambulate. Tolerating oral intake. Eager for discharge home. She wants to go home and try to sleep. Will follow up with her neurologist. Given return precautions. Stable for discharge General Adult HPI - General Chief complaint: Headache Stated complaint: headache Time Seen
--- NOTE | 2021-02-14 13:55 | PC.NURSE ---
PT REQUESTING MORE STADOL SAID WE DIDNT GIVE HER ENOUGH
[2021-02-14 17:02] VITALS: BP 125/82; PULSE 73; RESP 18; TEMP 37; O2SAT 98
== END 2021-02-14 17:03 | disposition home or self-care (01) ==
PROVIDERS: Emergency Provider Emergency Medicine; PCP Family Medicine
DX: G43.109 Migraine with aura, not intractable, without status migrainosus (principal); E11.9 Type 2 diabetes mellitus without complications; F41.8 Other specified anxiety disorders; Z86.73 Personal history of transient ischemic attack (TIA), and cerebral infarction without residual deficits; J44.9 Chronic obstructive pulmonary disease, unspecified; I25.10 Atherosclerotic heart disease of native coronary artery without angina pectoris; F17.210 Nicotine dependence, cigarettes, uncomplicated; Z79.899 Other long term (current) drug therapy; Z88.0 Allergy status to penicillin; Z88.2 Allergy status to sulfonamides; Z88.8 Allergy status to other drugs, medicaments and biological substances
CPT/HCPCS: 96365; 96375; 96376; 99282; J0595

== ENCOUNTER 2021-03-02 15:03 | Emergency (ER) | payer MEDICARE, MEDICAID, SELFPAY ==
[2021-03-02 15:20] VITALS: BP 187/111; PULSE 76; RESP 21; O2SAT 97; BMI 24.5
--- NOTE | 2021-03-02 15:33 | HMH.EDUTC ---
[facility] [place] Disposition Condition on Discharge: Good Time of Disposition: 15:42 <Veronica Ty - Last Filed: 03/02/21 15:33> Condition on Discharge: Good <Jorge Valladares - Last Filed: 03/02/21 17:59> Clinical Impression: Migraine Qualifiers: Migraine type: unspecified Status migrainosus presence: without status migrainosus Intractability: not intractable Qualified Code(s): G43.909 - Migraine, unspecified, not intractable, without status migrainosus Disposition: Home, Self-Care Instructions: DI for Migraine Additional Instructions: Return the emergency department for worsening headache numbness weakness or tingling in arms or legs or any other concerns within the next 8 hours otherwise follow-up with your primary care physician within the next few days Referrals: Vasu Gutierres MD [Primary Care Provider] - Medical Decision Making - Corey Inquiry Pt receiving controlled substance: No Corey was queried for this patient: No <Veronica Ty - Last Filed: 03/02/21 15:33> <Jorge Valladares - Last Filed: 03/02/21 17:59> Vital Signs: 03/02/21 15:20 03/02/21 15:38 Temperature 98.1 F Temperature Source Oral Pulse Rate [Left Brachial] 76 69 Respiratory Rate 21 18 Blood Pressure [Left Arm] 187/111 H 197/114 H Blood Pressure Mean [Left Arm] 136 141 Blood Pressure Source [Left Arm] Automatic Cuff Automatic Cuff Blood Pressure Position [Left Arm] Sitting Sitting 02 Sat by Pulse Oximetry 97 97 Oxygen Delivery Method Room Air Room Air Orders (Tests/Meds): ED MEDICATIONS Discontinued Medications Generic Name Dose Route Start Last Admin Trade Name Audi PRN Reason Stop Dose Admin Butorphanol Tartrate 2 mg 03/02/21 15:56 03/02/21 16:44 Butorphanol Tartrate 2 Mg/Ml Vial IV 03/02/21 15:57 2 mg ONCE ONE Administration Diphenhydramine HCl 25 mg 03/02/21 15:54 03/02/21 16:38 Diphenhydramine 50mg/Ml Vial IV 03/02/21 15:55 25 mg ONCE ONE Administration Sodium Chloride 1,000 mls @ 999 mls/hr 03/02/21 16:00 08/13/21 16:44 Sod Chlor 0.9% 1000ml Bag IV 03/02/21 17:00 999 mls/hr .Q1H1M ZANDER Administration Prochlorperazine Edisylate 10 mg 03/02/21 15:54 03/02/21 16:40 Prochlorperazine 10mg/2ml Vial IV 03/02/21 15:55 10 mg ONCE ONE Administration Medical Decision Narrative: Due to patient history of 5 strokes and brain surgery and patient complaints of Migraine with blurry vision and elevated BP recommended to patient that she be seen in the ED and patient agreed Called ED spoke with Judy and patient was assigned room 7 Patient moved to ED room 7 via wheelchair without complications (Veronica Ty) Patient was sent to the emergency department for continued management and evaluation. She states to me that this is a typical migraine for her and she requests medication for migraine management. No concern for hypertensive emergency on history or exam. Given 1 round of Compazine and Stadol per request and she was feeling better. On reexamination I gave her another dose of Stadol per her request and she is requesting be discharged at this time. Plan to discharge home with return precautions (Jorge Valladares) [facility] [place] HPI - General Mode of Arrival: Ambulatory Source of Information: Patient Limitations: No Limitations Description of Symptoms (Recalled from Triage Doc. by RN): PATIENT C/O MIGRAINE X 3 WEEKS WITH BLURRY VISION. SHE STATES SHE JUST LEFT THE [facility] AND HER BLOOD PRESSURE WAS EXTREMELY HIGH . SHE REPORTS A HISTORY OF STROKE AND BRAIN SURGERY HEENT Symptoms (Recalled from RN notes): Yes Resp Symptoms (Recalled from RN notes): No Skin Symptoms (Recalled from RN notes): No MS Symptoms (Recalled from RN notes): No Functional Status (Recalled from RN notes): WNL - History of Present Illness Provider Complaint: Patient states she has a history of migraine headaches and Neurologist has her on medication and it usually helps States that she has had a Migraine for the la
--- NOTE | 2021-03-02 15:34 | PC.NURSE ---
PATIENT SENT TO ER PER Jesenia PABON APRN FOR FURTHER EVALUATION. REPORT GIVEN TO Caryn MCDONALD RN
[2021-03-02 15:38] VITALS: BP 197/114; PULSE 69; RESP 18; TEMP 36.7; O2SAT 97; BMI 24.4
[2021-03-02 18:19] VITALS: BP 169/93; PULSE 67; RESP 18; TEMP 36.7; O2SAT 96
== END 2021-03-02 18:24 | disposition home or self-care (01) ==
LOC: UTC 15:06 → ER 15:35
PROVIDERS: Emergency Provider Emergency Medicine; PCP Family Medicine
DX: G43.909 Migraine, unspecified, not intractable, without status migrainosus (principal); E78.5 Hyperlipidemia, unspecified; I10 Essential (primary) hypertension; E03.9 Hypothyroidism, unspecified; J44.9 Chronic obstructive pulmonary disease, unspecified; Z86.73 Personal history of transient ischemic attack (TIA), and cerebral infarction without residual deficits; F41.8 Other specified anxiety disorders; F17.210 Nicotine dependence, cigarettes, uncomplicated; Z79.899 Other long term (current) drug therapy
CPT/HCPCS: 96365; 96375; 96376; 99281; J0595

== ENCOUNTER 2021-03-07 17:18 | Emergency (ER) | payer MEDICARE, MEDICAID, SELFPAY ==
[2021-03-07 19:26] VITALS: BP 175/98; PULSE 73; RESP 18; TEMP 36.8; O2SAT 98; BMI 26.1
--- NOTE | 2021-03-07 19:30 | XR_ITS ---
PROCEDURE INFORMATION: Exam: XR Right Foot Exam date and time: 03/07/2021 7:30 PM Age: 56 years old Clinical indication: Injury or trauma; Blunt trauma; Right; Patient HX: Fall, bruising to foot TECHNIQUE: Imaging protocol: XR Right foot. Views: 3 or more views. COMPARISON: CR (FOOT AP, FOOT, FOOT AP) 12/03/2018 11:34 AM FINDINGS: Bones/joints: Redemonstration of old/healed fractures to the head/neck is of the 3rd, 4th, and 5th metatarsals. Step-off deformity at the head of the 4th metatarsal, unclear if related to acute on chronic injury. No other acutely displaced fractures are identified. There is no evidence of joint dislocation. No aggressive osseous lesions. Soft tissues: Mild soft tissue swelling at the dorsum of the forefoot. IMPRESSION: Findings at the head of the 4th metatarsal are unclear if related to acute on chronic injury. Consider correlation with point tenderness.
--- NOTE | 2021-03-07 19:30 | PC.NURSE ---
Notified rad of xray
--- NOTE | 2021-03-07 19:35 | HMH.EDUTC ---
[facility] [place] Disposition Clinical Impression: Superficial abrasion Right ankle sprain Qualifiers: Encounter type: initial encounter Involved ligament of ankle: unspecified ligament Qualified Code(s): S93.401A - Sprain of unspecified ligament of right ankle, initial encounter Right foot sprain Qualifiers: Encounter type: initial encounter Qualified Code(s): S93.601A - Unspecified sprain of right foot, initial encounter Disposition: Home, Self-Care Condition on Discharge: Good Instructions: DI for Ankle Sprain, DI for Foot Pain Additional Instructions: Rest the extremity, apply ice for 15 minutes as tolerated three or four times per day, Wear the jose wrap for compression, Elevate the extremity as tolerated while you are resting. Take ibuprofen for pain. I sent in a prescription to your pharmacy. Follow up with Dr. Duke (podiatry). Sometimes there can be fractures that don't show up well on the first set of x-rays. So, you should follow up if you continue to have symptoms. I put in a referral but you need to call her office and schedule an appointment. Follow up with your regular doctor. GO TO THE ER FOR ANY WORSENING SYMPTOMS Prescriptions: Mupirocin [Bactroban 2% Ointment 22gm tube] 1 applicatio TP TID 7 Days #1 tube Transmission Status: Received by [facility] Referrals: Vasu Gutierres MD [Primary Care Provider] - Jessie Duke DPM [Staff Physician] - Forms: Work/School Release Time of Disposition: 20:53 Medical Decision Making - Medical Records Medical records reviewed: No: I reviewed the patient's medical records. - Corey Inquiry Pt receiving controlled substance: No Vital Signs: 03/07/21 19:26 03/07/21 21:01 Temperature 98.2 F 98.2 F Temperature Source Oral Pulse Rate 73 Pulse Rate [Left Radial] 73 Respiratory Rate 18 18 Blood Pressure 175/98 H Blood Pressure [Left Arm] 175/98 H Blood Pressure Mean [Left Arm] 123 Blood Pressure Source [Left Arm] Automatic Cuff Blood Pressure Position [Left Arm] Sitting 02 Sat by Pulse Oximetry 98 Oxygen Delivery Method Room Air - Radiology Data #1 Image(s): Ankle Image Reviewed: Yes I reviewed the patient's radiology image, Yes I have reviewed radiologist's interpretation Preliminary Findings: Normal/NAD PROCEDURE INFORMATION: Exam: XR Right Ankle Exam date and time: 03/07/2021 8:26 PM Age: 56 years old Clinical indication: Injury or trauma; Blunt trauma; Ankle; Right; Patient HX: Fall, bruising to foot; Additional info: Pain TECHNIQUE: Imaging protocol: XR Right ankle. Views: 3 or more views. COMPARISON: CR (FOOT AP, FOOT, FOOT AP) 12/03/2018 11:34 AM FINDINGS: Bones/joints: Osseous anatomic alignment is well preserved. No acutely displaced fracture or dislocation. Joint spaces are well preserved. Soft tissues: No significant soft tissue swelling. IMPRESSION: No acute findings. #2 Image(s): Foot/Toes Image Reviewed: Yes I reviewed the patient's radiology image, Yes I have reviewed radiologist's interpretation Preliminary Findings: Abnormal, No Fracture Seen PROCEDURE INFORMATION: Exam: XR Right Foot Exam date and time: 03/07/2021 7:30 PM Age: 56 years old Clinical indication: Injury or trauma; Blunt trauma; Right; Patient HX: Fall, bruising to foot TECHNIQUE: Imaging protocol: XR Right foot. Views: 3 or more views. COMPARISON: CR (FOOT AP, FOOT, FOOT AP) 12/03/2018 11:34 AM FINDINGS: Bones/joints: Redemonstration of old/healed fractures to the head/neck is of the 3rd, 4th, and 5th metatarsals. Step-off deformity at the head of the 4th metatarsal, unclear if related to acute on chronic injury. No other acutely displaced fractures are identified. There is no evidence of joint dislocation. No aggressive osseous lesions. Soft tissues: Mild soft tissue swelling at the dorsum of the
--- NOTE | 2021-03-07 19:43 | XR_ITS ---
PROCEDURE INFORMATION: Exam: XR Right Knee Exam date and time: 03/07/2021 7:43 PM Age: 56 years old Clinical indication: Injury or trauma; Blunt trauma; Knee; Right; Patient HX: Fall, bruising to foot; Additional info: Fall, knee pain TECHNIQUE: Imaging protocol: XR Right knee. Views: 3 views. COMPARISON: CR XR ANKLE RT MIN 3V 03/07/2021 8:21 PM FINDINGS: Bones/joints: Osseous anatomic alignment is well preserved. No acutely displaced fracture or dislocation. Joint spaces are well preserved. Soft tissues: No significant soft tissue swelling. IMPRESSION: No acute findings.
--- NOTE | 2021-03-07 20:26 | XR_ITS ---
PROCEDURE INFORMATION: Exam: XR Right Ankle Exam date and time: 03/07/2021 8:26 PM Age: 56 years old Clinical indication: Injury or trauma; Blunt trauma; Ankle; Right; Patient HX: Fall, bruising to foot; Additional info: Pain TECHNIQUE: Imaging protocol: XR Right ankle. Views: 3 or more views. COMPARISON: CR (FOOT AP, FOOT, FOOT AP) 12/03/2018 11:34 AM FINDINGS: Bones/joints: Osseous anatomic alignment is well preserved. No acutely displaced fracture or dislocation. Joint spaces are well preserved. Soft tissues: No significant soft tissue swelling. IMPRESSION: No acute findings.
--- NOTE | 2021-03-07 20:39 | PC.NURSE ---
Returned from Rad at this time
[2021-03-07 21:01] VITALS: BP 175/98; PULSE 73; RESP 18; TEMP 36.8; O2SAT 98
== END 2021-03-07 21:05 | disposition home or self-care (01) ==
PROVIDERS: Emergency Provider Nurse Practitioner Family; PCP Family Medicine
DX: S93.401A Sprain of unspecified ligament of right ankle, initial encounter (principal); S93.601A Unspecified sprain of right foot, initial encounter; W01.0XXA Fall on same level from slipping, tripping and stumbling without subsequent striking against object, initial encounter; Y92.014 Private driveway to single-family (private) house as the place of occurrence of the external cause; F41.8 Other specified anxiety disorders; E11.9 Type 2 diabetes mellitus without complications; E78.5 Hyperlipidemia, unspecified; I10 Essential (primary) hypertension; J44.9 Chronic obstructive pulmonary disease, unspecified; Z79.899 Other long term (current) drug therapy; Z88.8 Allergy status to other drugs, medicaments and biological substances
CPT/HCPCS: 73562; 73610; 73630; 99202; G0463

== ENCOUNTER → 2021-03-09 16:14 | Outpatient (CLI) | payer MEDICARE, MEDICAID, SELFPAY ==
[2021-03-09 16:30] VITALS: BMI 29.0
== END ==
PROVIDERS: PCP Family Medicine; Visit Provider Family Medicine
DX: G43.C1 Periodic headache syndromes in child or adult, intractable (principal)
CPT/HCPCS: 96372

== ENCOUNTER → 2021-03-16 15:13 | Outpatient (CLI) | payer MEDICARE, MEDICAID, SELFPAY ==
--- NOTE | 2021-03-16 15:15 | US_ITS ---
PROCEDURE: US THYROID CLINICAL INDICATION: THYROID NODULE COMPARISON: US THY US thyroid from 10/14/2017 FINDINGS: Right lobe: 4.1 x 2.1 x 2.5 cm. 2.5 x 1.5 cm mixed cystic/spongiform nodule upper pole. Increasing cystic involvement compared to the previous exam benign-appearing. Two other nodules are present in the mid polar region at 1 cm and 1.4 x 0.6 cm not significantly changed. Left lobe: 4.5 x 1.8 x 1.7 cm. In the upper pole there is a solid-appearing isoechoic nodule medially at 1 cm unchanged. Adjacent to this there is a spongiform nodule at 1.6 cm unchanged. 1 cm spongiform benign-appearing nodule lower pole unchanged. Isthmus: 3 mm in thickness. 4 mm hypoechoic nodule lateral aspect of the isthmus unchanged. Additional findings: IMPRESSION: No change bilateral multinodular goiter Dictated by: Tom Beaulieu MD 03/16/2021 16:47 Tom Beaulieu MD in [facility] 03/16/2021 16:47
== END ==
PROVIDERS: PCP Family Medicine; Visit Provider Family Medicine
DX: E04.1 Nontoxic single thyroid nodule (principal)
CPT/HCPCS: 76536

== ENCOUNTER 2021-06-09 12:02 | Observation (INO) | payer MEDICARE, MEDICAID, SELFPAY ==
[2021-06-09 12:15] VITALS: BMI 20.7
--- NOTE | 2021-06-09 12:15 | PC.NURSE ---
Pt arrived to the floor at this time
--- NOTE | 2021-06-09 12:57 | XR_ITS ---
PROCEDURE INFORMATION: Exam: XR Chest Exam date and time: 06/09/2021 12:57 PM Age: 56 years old Clinical indication: Shortness of breath; Additional info: Debilitation, weakness TECHNIQUE: Imaging protocol: XR of the chest. Views: 1 view. COMPARISON: CR XR CHEST PORTABLE 03/25/2020 2:30 PM FINDINGS: Lungs: Calcified granulomas within the lower lobes bilaterally. Pleural spaces: Unremarkable. No pleural effusion. No pneumothorax. Heart/Mediastinum: Normal. Bones/joints: Prior resection or osteolysis of the distal left clavicle. IMPRESSION: No acute cardiopulmonary abnormality.
[2021-06-09 13:30] VITALS: BP 170/88; PULSE 84; RESP 16; TEMP 36.5; O2SAT 100; BMI 20.7
--- NOTE | 2021-06-09 15:54 | HMH.HP ---
*Admission Date: 06/09/21 *Chief complaint: Weakness, debilitation *History of present illness: This 56 y.o. WF was seen by Dr. Swann in [facility] and admitted. Dr. Swann was contacted last evening by some friends of Ms. Maravilla who were concerned that she was showing altered mental status as well as altered physical status. they were concerned that she may not be taking her medications properly. She seems to be sleeping a lot. She has complaints of pain in her right side. She is diabetic and in A her blood sugar was found to be 363 on finger stick, and A1C=10.9%. It was felt she was dehydrated. She was able to converse cogently with Dr. Swann. She is admitted for IV fluids and further evaluation. [facility] History Medical History: Reports:: Anxiety, Arrhythmia, Cancer, Chronic Obstructive Pulmonary Disease (COPD), Coronary Artery Disease, Cerebrovascular Accident, Deep Vein Thrombosis, Depression, Diabetes Mellitus Type 2, Hyperlipidemia, Hypertension, Migraine (longstanding headache issues, with frequent ER visits and trreatments.) Denies:: Diabetes Mellitus Type 1, Internal Pacemaker, MRSA, Seizures *Have you ever received a pneumonia vaccine?: Yes *Have you received a flu vaccine this season?: Yes Other Medical History: Reports: Arthritis, Hypothyroidism, Sinus Problems, Thyroid Disease, Other (meningioma resected from left side of brain 2013) Laterality Cases: Right: Lumpectomy, Bilateral: Other (DREZ procedure 1999, 2016) Other Surgeries: Yes: Cardiac Catheterization, Colonoscopy, Tubal Ligation, Other (DREZ procedure x 2; excision of meningioma). No: Pacemaker Amputation: No Fractures: No - *Social History Last grade of school completed: High school graduate Smoking Status: Current every day smoker Tobacco Type: cigarettes # Packs/Day (cigarettes): 1 Alcohol Intake: former Alcohol Intake Frequency:: holidays/special occasions only Substance Use Type: denies use, former substance user *Occupational Status:: disabled Housing: apartment Household Members: other *Travel in the last 8 weeks: None - Psychiatric History Pschychiatric History:: Reports:: Anxiety, Depression Family Hx:: Cancer (Father), Diabetes (Mother), Hypertension (Mother and Father), Stroke (Mother), Other (Dementia, Mother) [employer] history: Tubal Ligation (2000) Review of Systems - Constitutional Reports daytime sleepiness, Reports fatigue, Reports headache(s), Reports lack of energy, Reports malaise, Reports weakness - Eyes Reports blurry vision - ENT Reports headache(s), Denies difficulty swallowing - *Cardiovascular Denies chest pain - *Respiratory Denies chest congestion, Denies cough - *Gastrointestinal Denies abdominal pain, Denies change in bowel habits - Integumentary/Breasts Denies bleeding lesions - *Neurologic Reports abnormal speech, Reports behavioral changes, Reports unsteadiness, Reports headache(s) - Psychiatric Reports behavioral changes, Reports change in appetite Meds Home Medications Medication Instructions Recorded Confirmed Type amlodipine 5 mg tablet 5 mg PO DAILY #30 tab 09/08/20 06/09/21 Rx atorvastatin 80 mg tablet 80 mg PO HS 30 Days #30 tab 09/08/20 06/09/21 Rx cholecalciferol (vitamin D3) 125 5,000 unit PO DAILY #30 cap 09/08/20 06/09/21 Rx mcg (5,000 unit) capsule desvenlafaxine succinate 50 mg 50 mg PO HS #30 tab 09/08/20 06/09/21 Rx tablet,extended release 24 hr lisinopril 20 mg tablet 20 mg PO DAILY #30 tab 09/08/20 06/09/21 Rx omeprazole 40 mg capsule,delayed 40 mg PO DAILY #30 cap 09/08/20 06/09/21 Rx release insulin NPH-regular 70-30 U-100 43 unit SQ BID ml 09/21/20 06/09/21 History insulin 100 unit/mL subcutaneous pen tizanidine 4 mg tablet 4 mg PO TID tab 09/21/20 06/09/21 History trazodone 150 mg tablet 150 mg PO HS 09/21/20 06/09/21 History valbenazine 40 mg ()-80 mg (21) See Rx Instructions PO PER PKG DIR 03/02/21 Rx capsules in a dose pack #28 cap Galcanezumab-Gnlm [Emgalit
--- NOTE | 2021-06-09 15:58 | PC.NURSE ---
pt has refused to cooperate with care up to this point. Refused lab draw and ekg. I spoke with her nok and he is now in the room with her. she refused fsbs and insulin administration.
[2021-06-09 16:00] VITALS: BP 149/77; PULSE 76; RESP 16; TEMP 36.7; O2SAT 100
[2021-06-09 16:55] LABS: Coronavirus 19, PCR Not Detected (NotDetected); Influenza A, PCR Not Detected (NotDetected); Influenza B, PCR Not Detected (NotDetected)
[2021-06-09 16:58] LABS: Basophils # 0.1 K/mm3 (0-0.2); Basophils % 2.1 % (0.1-2.0); Eosinophils # 0.1 K/mm3 (0.0-0.4); Eosinophils % 0.8 % (0.1-12.0); Hematocrit 43.5 % (37.0-47.0); Hemoglobin 14.9 g/dL (12.2-16.2); Lymphocytes # 3.3 K/mm3 (0.7-4.5); Lymphocytes % 47.2 % (10-50); Mean Corpuscular HGB Conc 34.2 g/dL (31.8-35.4); Mean Corpuscular Hemoglobin 29.9 pg (27.0-31.2); Mean Corpuscular Volume 87.6 fl (81-99); Mean Platelet Volume 8.7 fl (7.4-10.4); Monocytes # 0.3 K/mm3 (0.1-1.0); Neutrophils # 3.2 K/mm3 (1.8-7.8); Neutrophils % 45.9 % (37.0-80.0); Platelet Count 269 K/mm3 (142-424); Red Blood Count 4.97 M/mm3 (4.20-5.40); Red Cell Distribution Width 12.7 % (11.5-17.5)
[2021-06-09 17:19] LABS: Alanine Aminotransferase 31 U/L (12-78); Albumin Level 3.9 g/dl (3.5-5.0); Albumin/Globulin Ratio 1.4 (1.1-1.8); Alkaline Phosphatase 114 U/L (38-126); Anion Gap 9.5 mEq/L (5-15); Aspartate Amino Transferase 30 U/L (14-36); Bilirubin,Total 0.6 mg/dl (0.2-1.3); Blood Urea Nitrogen 20 mg/dl (7-17); Calcium 9.5 mg/dl (8.4-10.2); Carbon Dioxide 28 mmol/L (22.0-30.0); Chloride 102 mmol/L (98-107); Creatinine Clearance Estimated 66 mL/min (50-200); Estimated Glomerular Filt Rate 74 ml/min (>60); GFR (African American) 89 ML/MIN (>60); Globulin 2.7 g/dL (1.3-3.2); Glucose 323 mg/dl (74-100); Magnesium 1.2 mg/dl (1.6-2.3); Potassium 3.5 mmoL/L (3.5-5.1); Sodium 136 mmol/L (136-145); Total Protein,Serum 6.6 g/dl (6.3-8.2)
--- NOTE | 2021-06-09 17:20 | PC.NURSE ---
pt let me initiate iv access and draw her labs. she continues to be contrary and refuses fsbs @ this time stating she is too tired. I educated her on the umportance of compliance. Will continue to monitor. notified of pt refusal of care
[2021-06-09 17:28] LABS: Amylase 68 U/L (30-110); Lipase 200 U/L (23-300)
--- NOTE | 2021-06-09 17:44 | ECG_ITS ---
APPROVED REPORT Exam: Resting ECG HR:78 bpm ECG Measurements Heart Rate 78 AXES RI 176 P 67 QRSd 88 QRS 5 QT 412 T 60 QTc 469 Conclusion Normal sinus rhythm Low voltage QRS o/w normal ECG Electronically signed by : Gerardo Willett MD 06/10/2021 07:01:22
[2021-06-09 17:51] LABS: Troponin I < 0.01 ng/ml (0.00-0.034)
--- NOTE | 2021-06-09 18:16 | PC.NURSE ---
refused skin assessment despite multiple attempts
[2021-06-09 20:00] VITALS: BP 152/94; PULSE 87; RESP 20; O2SAT 99
[2021-06-10 03:07] VITALS: BP 169/99; PULSE 67; RESP 16; TEMP 37.2; O2SAT 94
[2021-06-10 04:43] VITALS: BMI 20.8
[2021-06-10 08:00] VITALS: BP 154/90; PULSE 83; RESP 16; TEMP 36.3; O2SAT 97
--- NOTE | 2021-06-10 09:57 | HMH.ACPN2 ---
Internal Medicine - PN: Subj *Date: 06/10/21 *Time: 10:05 Interval history: Patient seen and examined and Dr. Swann's history and physical reviewed. This presentation is much the same as her admission in August 2020 although does not seem to be as confused at this time. She was resistant to care care on admission yesterday but this morning is very pleasant and cooperative. She states she simply got too weak to care for herself at home. She admits that she was not eating well. She was not taking her medications appropriately. She has not been monitoring her blood sugar at home. She is worried that she will have to be placed in long-term care and states she does not want to do this. Exam Vital signs and Labs for Last 24 Hours: Temp Pulse Resp BP Pulse Ox 97.3 F L 83 16 154/90 H 97 06/10/21 08:00 06/10/21 08:00 06/10/21 08:00 06/10/21 08:00 06/10/21 08:00 Laboratory Results - last 24 hr 06/09/21 16:40: WBC 7.0, RBC 4.97, Hgb 14.9, Hct 43.5, MCV 87.6, MCH 29.9, MCHC 34.2, RDW 12.7, Plt Count 269, MPV 8.7, Neut % (Auto) 45.9, Lymph % (Auto) 47.2, [place] % (Auto) 4.0, Eos % (Auto) 0.8, Baso % (Auto) 2.1 H, Neut # (Auto) 3.2, Lymph # (Auto) 3.3, [place] # (Auto) 0.3, Eos # (Auto) 0.1, Baso # (Auto) 0.1 06/09/21 16:40: Sodium 136, Potassium 3.5, Chloride 102, Carbon Dioxide 28, Anion Gap 9.5, BUN 20 H, Creatinine 0.80, Estimated Creat Clear 66, Estimated GFR 74, Est GFR ( Amer) 89, Glucose 323 H, Calcium 9.5, Magnesium 1.2 L, Total Bilirubin 0.6, AST 30, ALT 31, Alkaline Phosphatase 114, Total Protein 6.6, Albumin 3.9, Globulin 2.7, Albumin/Globulin Ratio 1.4 06/09/21 16:40: Troponin I < 0.01 06/09/21 16:40: Lactate 1.0 06/09/21 16:40: SARS-CoV-2 (PCR) Not detected, Influenza A Untype (PCR) Not detected, Influenza Type B (PCR) Not detected 06/09/21 16:40: Amylase 68, Lipase 200 I & O for Last 24 hours: Intake & Output 06/07/21 06/08/21 06/09/21 06/10/21 11:59 11:59 11:59 11:59 Intake Total 360 / 360 Balance 360 / 360 Weight 122 lb Narrative: She is awakened from sleep. She is alert and oriented. Mucous membranes are dry. Lungs are clear to auscultation. Heart is regular. Abdomen is soft and nondistended with diffuse mild tenderness. Extremities show no edema. Assessment and Plan (1) Altered mental status Status: Acute Qualifiers: Altered mental status type: disorientation Qualified Code(s): R41.0 - Disorientation, unspecified Category: Medical Code(s): R41.82 - Altered mental status, unspecified (2) Dehydration Status: Acute Category: Medical Code(s): E86.0 - Dehydration (3) Hyperglycemia due to type 2 diabetes mellitus Status: Acute Qualifiers: Diabetes mellitus fpc insulin use: unspecified fpc insulin use status Qualified Code(s): E11.65 - Type 2 diabetes mellitus with hyperglycemia Category: Medical Code(s): E11.65 - Type 2 diabetes mellitus with hyperglycemia (4) History of meningioma of the brain Status: Acute Category: Medical Code(s): Z86.011 - Personal history of benign neoplasm of the brain (5) History of CVA (cerebrovascular accident) Status: Acute Category: Medical Code(s): Z86.73 - Personal history of transient ischemic attack (TIA), and cerebral infarction without residual deficits (6) Hypertension Status: Acute Qualifiers: Hypertension type: essential hypertension Category: Medical Code(s): I10 - Essential (primary) hypertension (7) Migraine Status: Acute Category: Medical Code(s): G43.909 - Migraine, unspecified, not intractable, without status migrainosus (8) Noncompliance with medication regimen Status: Acute Category: Medical Code(s): Z91.14 - Patient's other noncompliance with medication regimen (9) Type 2 diabetes mellitus Status: Acute Category: Medical Code(s): E11.9 - Type 2 diabetes mellitus without complications - Assessment and plan all Dx Assessment
--- NOTE | 2021-06-10 13:01 | HMH.PHAVTE ---
[facility] Pharmacy VTE Monitoring - Patient Demographics Admission date: 06/10/21 Report Date: 06/10/21 Time: 13:01 Allergies/Adverse Reactions: Patient Allergies cephalexin [CEPHALEXIN] Allergy (Intermediate, Verified 03/02/21 14:16) I-ITCHING Cephalosporins Allergy (Intermediate, Verified 03/02/21 14:16) ITCHING levofloxacin [From LEVAQUIN] Allergy (Intermediate, Verified 03/02/21 14:16) I-RASH Macrolide Antibiotics Allergy (Intermediate, Verified 03/02/21 14:16) ITCHING Penicillins [PENICILLINS] Allergy (Intermediate, Verified 03/02/21 14:16) I-RASH, VOMITING Quinolones [QUINOLONES] Allergy (Intermediate, Verified 03/02/21 14:16) I-RASH Sulfa (Sulfonamide Antibiotics) [SULFA (SULFONAMIDE ANTIBIOTICS)] Allergy (Intermediate, Verified 03/02/21 14:16) I-RASH trimethoprim [TRIMETHOPRIM] Allergy (Intermediate, Verified 03/02/21 14:16) I-RASH ciprofloxacin [From CIPRO] Allergy (Unknown, Verified 03/02/21 14:16) Unknown allergy reaction eletriptan [From RELPAX] Allergy (Unknown, Verified 03/02/21 14:16) Unknown allergy reaction ergonovine [ERGONOVINE] Allergy (Unknown, Verified 03/02/21 14:16) NA-NAUSEA/VOMITING erythromycin base [ERYTHROMYCIN BASE] Allergy (Unknown, Verified 03/02/21 14:16) Unknown allergy reaction ketorolac [KETOROLAC] Allergy (Unknown, Verified 03/02/21 14:16) NA-NAUSEA/VOMITING methadone [METHADONE] Allergy (Unknown, Verified 03/02/21 14:16) SWELLING OF FEET metoclopramide [From REGLAN] Allergy (Unknown, Verified 03/02/21 14:16) NA-HALLUCINATIONS naratriptan [NARATRIPTAN] Allergy (Unknown, Verified 03/02/21 14:16) Unknown allergy reaction quetiapine [From SEROQUEL] Allergy (Unknown, Verified 03/02/21 14:16) Unknown allergy reaction sumatriptan [From IMITREX] Allergy (Unknown, Verified 03/02/21 14:16) Unknown allergy reaction vilazodone [From VIIBRYD] Allergy (Unknown, Verified 03/02/21 14:16) Unknown allergy reaction Height: 1.63 m Weight: 55.338 kg Patient Problems: Current Active Problems Hyperglycemia due to type 2 diabetes mellitus (Acute) Hypertension (Acute) Noncompliance with medication regimen (Acute) Dehydration (Acute) Type 2 diabetes mellitus (Acute) History of CVA (cerebrovascular accident) (Acute) Altered mental status (Acute) History of meningioma of the brain (Acute) Migraine (Acute) - VTE Risk Labs: VTE Related Lab Results Hgb 14.9 g/dL (12.2-16.2) 06/09/21 16:40 Hct 43.5 % (37.0-47.0) 06/09/21 16:40 Plt Count 269 K/mm3 (142-424) 06/09/21 16:40 BUN 20 mg/dl (7-17) H 06/09/21 16:40 Creatinine 0.80 mg/dl (0.52-1.04) 06/09/21 16:40 Estimated Creat Clear 66 mL/min (50-200) 06/09/21 16:40 - Prophylaxis Types of VTE Prophylaxis: TEDS Knee High (JONE HOSE ORDERED)
[2021-06-10 16:00] VITALS: BP 101/60; PULSE 73; RESP 18; TEMP 36.5; O2SAT 99
--- NOTE | 2021-06-10 19:42 | PC.NURSE ---
report received from roberto montoya
--- NOTE | 2021-06-10 19:42 | PC.NURSE ---
report called to Verito WEATHERS in [facility], will transport pt via wheelchair to 280
--- NOTE | 2021-06-10 19:55 | PC.NURSE ---
PATIENT BROUGHT TO UNIT BY 2ND FLOOR STAFF. ORIENTED TO UNIT, STAFF AND POC. PATIENT AGREEABLE. PATIENT ASKED IMMEDIATELY FOR A BATH, STATING SHE HADN'T HAD ONE AND WOULD LIKE TO GET CLEAN. NO FURTHER NEEDS VOICED.
[2021-06-10 20:05] VITALS: BP 121/71; PULSE 102; RESP 18; TEMP 36.8; O2SAT 99
[2021-06-10 20:27] LABS: Microscopic, Urine URINE MICROSCOPIC (MICROSCOPIC)
[2021-06-10 20:29] LABS: Appearance,Urine CLOUDY (Clear); Bilirubin,Urine Negative (Negative); Blood, Urine TRACE-L (Negative); Color,Urine YELLOW (Yellow); Glucose,Urine (UA) 3+ (Negative); Ketones,Urine TRACE (Negative); Leukocyte Esterase,Urine TRACE (Negative); Nitrate,Urine Negative (Negative); PH,Urine 5.5 (5.0-8.5); Protein,Urine 2+ (Negative); Specific Gravity, Urine >= 1.030 (1.005-1.030); Urobilinogen,Urine 0.2 EU/dl (0.2)
[2021-06-10 20:42] LABS: Barbiturates Screen,Urine Negative ng/ml (<200)
[2021-06-10 20:43] LABS: Benzodiazepines Screen,Urine Negative ng/ml (<200)
[2021-06-10 20:44] LABS: Amphetamine/Metha Screen,Urine Negative ng/ml (<1000); Bacteria,Urine 1+ /lpf; Cannabinoid Screen,Urine Negative ng/ml (<50); RBC,Urine Occasional #/hpf (0-3); WBC,Urine TNTC #/hpf (0-3)
[2021-06-10 20:45] LABS: Cocaine Screen,Urine Negative ng/ml (<300); Methadone Screen,Urine Negative ng/ml (<300)
[2021-06-10 20:46] LABS: Opiate Screen,Urine Negative ng/ml (<300)
[2021-06-10 20:47] LABS: Phencyclidine Screen,Urine Negative ng/ml (<25)
[2021-06-10 21:16] LABS: POC Glucose,Bedside 253 (70-110)
[2021-06-10 21:16] LABS: POC Glucose,Bedside 124 (70-110)
[2021-06-10 22:58] LABS: Glucose,Random 679 mg/dL (74-100)
--- NOTE | 2021-06-10 23:00 | PC.NURSE ---
CRITICAL GLUCOSE CALLED FROM Caryn GOLDSTEIN IN LAB. GLUCOSE [id number]. R/V
[2021-06-11 02:36] LABS: Glucose,Random 77 mg/dL (74-100)
--- NOTE | 2021-06-11 03:10 | PC.NURSE ---
LATE ENTRY AT 01:50 RN TO BEDSIDE. PT CALLING OUT FOR HELP. SHE STATED SHE NEEDED TO GO TO THE BATHROOM. GAIT UNSTEADY AT THIS TIME. X1 ASSIST SUFFICIENT. PATIENT TO BATHROOM AND VOIDED. ONCE BACK IN BED, PT NOTED TO BE SLURRING HER SPEECH AND STARTING TO BECOME DISORIENTED. PT ABLE TO FOLLOW SIMPLE COMMANDS. NO WEAKNESS IN ARMS OR LEGS. VISION SAID TO BE BLURRY AND UNABLE TO SEE WELL. AT 01:59 BEDSIDE GLUCOSE OBTAINED AND RESULT WAS 69. PATIENT GIVEN 8 OZ OF ORANGE JUICE, CONTINUED TO BE DISORIENTED AND SPEECH BECAME MORE SLURRED. PATIENT UNABLE TO FOLLOW COMMANDS AT THIS TIME. BALLET PROFESSOR TO BEDSIDE AROUND 02:10. BITES OF PEANUT BUTTER GIVEN. PATIENT CONTINUES TO BE CONFUSED, SLURRING SPEECH AND UNABLE TO FOLLOW COMMANDS. LAB TO BEDSIDE AT 02:15 FOR SERUM GLUCOSE PER BALLET PROFESSOR. PATIENT UNCOOPERATIVE AND CONFUSED. BS GLUCOSE OBTAINED AT 02:22. RESULT WAS 71. PATIENT SLIGHTLY LESS CONFUSED AT THIS TIME. SLURRED SPEECH CONTINUED. D50 ADMINISTERED BY TRACY RADFORD RN AY 02:25. DR. MORA NOTIFIED. REPORT GIVEN. NO NEW ORDERS. CONTINUE TO OBSERVE PATIENT. AT 02:35 PATIENT BEGAN TO COME AROUND AND BE MORE COOPERATE AND APPROPRIATE. ABLE TO FOLLOW SIMPLE COMMANDS AND STATES HER VISION IS CLOSE TO NORMAL. WILL CONTINUE TO OBSERVE.
--- NOTE | 2021-06-11 03:47 | PC.NURSE ---
report taken at 0300 from Verito WEATHERS, house brought pt to room 209 from 280, pt had migraine but oriented x4, will continue to monitor
[2021-06-11 04:23] VITALS: BP 112/68; PULSE 69; RESP 18; TEMP 36.6; O2SAT 99
--- NOTE | 2021-06-11 05:48 | PC.NURSE ---
pt's fsbs result 65, gave 2tbsp peanut butter and 120mL of orange juice, will recheck another fsbs
[2021-06-11 08:00] VITALS: BP 86/51; PULSE 72; RESP 18; O2SAT 100
--- NOTE | 2021-06-11 08:57 | HMH.ACPN2 ---
<Tianna Pérez - Last Filed: 06/11/21 08:57> Internal Medicine - PN: Subj *Date: 06/11/21 *Time: 08:57 Interval history: Patient awakened by shaking. She immediately opened her eyes and said paula Wynn. Nursing notes reviewed with hypoglycemic reaction during the night. She discusses her meds but speech is garbled at times. She states her right side of her chest and abdomen are sore. She denies shortness of breath. Exam Vital signs and Labs for Last 24 Hours: Temp Pulse Resp BP Pulse Ox 98 F 69 18 112/68 99 06/11/21 04:23 06/11/21 04:23 06/11/21 04:23 06/11/21 04:23 06/11/21 04:23 Laboratory Results - last 24 hr 06/10/21 11:05: POC Glucose 253 H 06/10/21 16:32: POC Glucose 124 H 06/10/21 20:10: Urine Color Yellow, Urine Appearance Cloudy, Urine pH 5.5, Ur Specific [place] >= 1.030, Urine Protein 2+, Urine Glucose (UA) 3+, Urine Ketones Trace, Urine Blood Trace-l, Urine Nitrate Negative, Urine Bilirubin Negative, Urine Urobilinogen 0.2, Ur Leukocyte Esterase Trace, Urine RBC Occasional, Urine WBC Tntc, Ur Squamous Epith Cells 3-5, Urine Bacteria 1+ 06/10/21 20:10: Urine Opiates Screen Negative, Urine Methadone Screen Negative, Ur Barbituates Screen Negative, Ur Phencyclidine Scrn Negative, Ur Amphetamines Screen Negative, U Benzodiazepines Scrn Negative, Urine Cocaine Screen Negative, U Marijuana (THC) Screen Negative 06/10/21 22:27: Random Glucose 679 H* 06/11/21 02:20: Random Glucose 77 I & O for Last 24 hours: Intake & Output 06/08/21 06/09/21 06/10/21 06/11/21 11:59 11:59 11:59 11:59 Intake Total 510 / 510 480 / 480 Balance 510 / 510 480 / 480 Weight 122 lb 122 lb - Constitutional no acute distress Comments: Did assist with exam and set up in the bed with minimal assistance - *Routine Respiratory Exam Present: CTA bilaterally (Anteriorly and posteriorly) - *Routine Cardiovascular Exam Present: RRR - *Routine Abdominal Exam Present: soft, normoactive bowel sounds. Absent: tenderness, distended - *Routine Extremities Exam Absent: edema, calf tenderness - *Routine Neurological Exam Present: alert, oriented X3, fasciculations (Around the mouth) Lethargic Assessment and Plan (1) Altered mental status Status: Acute Qualifiers: Altered mental status type: disorientation Qualified Code(s): R41.0 - Disorientation, unspecified Category: Medical Code(s): R41.82 - Altered mental status, unspecified (2) Dehydration Status: Acute Category: Medical Code(s): E86.0 - Dehydration (3) Hyperglycemia due to type 2 diabetes mellitus Status: Acute Qualifiers: Diabetes mellitus mcc insulin use: unspecified mcc insulin use status Qualified Code(s): E11.65 - Type 2 diabetes mellitus with hyperglycemia Category: Medical Code(s): E11.65 - Type 2 diabetes mellitus with hyperglycemia (4) History of meningioma of the brain Status: Acute Category: Medical Code(s): Z86.011 - Personal history of benign neoplasm of the brain (5) History of CVA (cerebrovascular accident) Status: Acute Category: Medical Code(s): Z86.73 - Personal history of transient ischemic attack (TIA), and cerebral infarction without residual deficits (6) Hypertension Status: Acute Qualifiers: Hypertension type: essential hypertension Category: Medical Code(s): I10 - Essential (primary) hypertension (7) Migraine Status: Acute Category: Medical Code(s): G43.909 - Migraine, unspecified, not intractable, without status migrainosus (8) Noncompliance with medication regimen Status: Acute Category: Medical Code(s): Z91.14 - Patient's other noncompliance with medication regimen (9) Type 2 diabetes mellitus Status: Acute Category: Medical Code(s): E11.9 - Type 2 diabetes mellitus without complications - Assessment and plan all Dx Assessment and Plan for all problems:: Continue to monitor blood sugars. PT and OT consult
[2021-06-11 09:00] LABS: Chloride 99 mmol/L (98-107); Potassium 3.7 mmoL/L (3.5-5.1); Sodium 134 mmol/L (136-145)
[2021-06-11 09:03] LABS: Alanine Aminotransferase 20 U/L (12-78); Albumin Level 3.5 g/dl (3.5-5.0); Albumin/Globulin Ratio 1.5 (1.1-1.8); Alkaline Phosphatase 100 U/L (38-126); Anion Gap 9.7 mEq/L (5-15); Aspartate Amino Transferase 25 U/L (14-36); Bilirubin,Total 0.2 mg/dl (0.2-1.3); Blood Urea Nitrogen 31 mg/dl (7-17); Calcium 8.8 mg/dl (8.4-10.2); Carbon Dioxide 29 mmol/L (22.0-30.0); Creatinine Clearance Estimated 49 mL/min (50-200); Estimated Glomerular Filt Rate 51 ml/min (>60); GFR (African American) 62 ML/MIN (>60); Globulin 2.4 g/dL (1.3-3.2); Glucose 134 mg/dl (74-100); Lipase 103 U/L (23-300); Total Protein,Serum 5.9 g/dl (6.3-8.2)
[2021-06-11 09:05] LABS: Basophils # 0.1 K/mm3 (0-0.2); Eosinophils # 0.1 K/mm3 (0.0-0.4); Eosinophils % 1.1 % (0.1-12.0); Hematocrit 42.4 % (37.0-47.0); Hemoglobin 14.1 g/dL (12.2-16.2); Lymphocytes # 4.5 K/mm3 (0.7-4.5); Lymphocytes % 49.1 % (10-50); Mean Corpuscular HGB Conc 33.3 g/dL (31.8-35.4); Mean Platelet Volume 8.5 fl (7.4-10.4); Monocytes # 0.4 K/mm3 (0.1-1.0); Monocytes % 4.7 % (1.7-9.3); Neutrophils % 44.2 % (37.0-80.0); Platelet Count 246 K/mm3 (142-424); Red Blood Count 4.71 M/mm3 (4.20-5.40); Red Cell Distribution Width 12.9 % (11.5-17.5); White Blood Count 9.1 K/mm3 (4.8-10.8)
--- NOTE | 2021-06-11 11:29 | HMH.PTEV ---
Physical Therapy Evaluation Rehab PT IP Evaluation Start: 06/11/21 09:00 Freq: ONCE Status: Active Protocol: Document 06/11/21 11:12 YANETH (Rec: 06/11/21 11:28 YANETH [id number]) Subjective/History History History This is the initial evaluation for Citlali Maravilla. Pt is a 56 y/o female admitted to [facility] for altered mental and physical status. Pt was found to have high BG and be dehydrated. Pt was in bed upon arrival. - note done by Keira Edwards, SPT Subjective Subjective Pt states she was living at home in an apartment alone before this medical event. Pt reports that no one checked on her. Pt reports she did not use an AD to get around and that she mostly could do all her ADL's before this event. Pt states she was very tired upon arrival. She denied any hx of falls. Pt's language was confused and garbled. Rehab PT IP Eval Objective Appearance Patient Behavior Appropriate,Cooperative, Fatigued Patient Orientation Place,Name Difficulty following instructions mild Speech Pattern Appropriate,Coherent,Soft- Spoken,Monotone,Mumbled Ambulation Patient Able to Ambulate Yes Ambulation Observation IP General Gait Pattern Observation Narrow Based Gait,Hips Posterior to SANDRA Ambulation Distance (feet) 10 Ambulation Assistive Device None Ambulation Ability Contact Guard/Hand Hold Balance Ability to Arise Able, uses arms to help Sitting Balance Steady, safe Standing Balance Narrow stance w/o support Dynamic Sitting Balance Ability Good Dynamic Standing Balance Ability Good Transfers Bed Transfer Ability Independent Chair Transfer Ability Contact Guard/Hand Hold Sit to Stand Bed Transfer Ability Contact Guard/Hand Hold Sit to Stand Chair Transfer Ability Contact Guard/Hand Hold Rehab PT IP prob,goals,plan Problems Date of Evaluation: 06/11/21 PT IP Problems Bed Mobility,Transfers,Gait, Balance,Self care,Safety Rehab Potential Rehab Potential Fair Equipment Needs Assistive Devices Straight Cane,Rolling /
--- NOTE | 2021-06-11 12:57 | SW/DCPLANNER ---
Addendum entered by Ame Amboy 06/13/21 10:58: COVID is negative and I have arranged [facility] for this patient. Addendum entered by Ame Amboy 06/13/21 09:34: This patent will discharge to [facility] level of care once COVID swab results this AM. I will continue to follow up with patients nurse (Citlali) and [facility]. Addendum entered by Ame Amboy 06/12/21 08:44: I explained to this patient that [facility] has denied and [facility] can accept under Medicaid (I explained [facility]AN process). I also expressed to patient that I would be happy to search to find a facility in network with her MCR. Patient is not agreeable to placement elsewhere but is agreeable at this time to placement at [facility] under [facility]. I have informed Una with [facility] that the plan is for this patient to admit to [facility] under [facility] once medically stable for discharge. Dr Gutierres has stated that patient could potentially be medically stable for discharge tomorrow. Addendum entered by Ame Amboy 06/12/21 07:01: Una oates/ [facility] has stated that patient [facility] is not in network but would be willing to accept under Medicaid. I will discuss this with patient this AM VS attempting other facilities VS returning home with home health. Addendum entered by Ame Amboy 06/11/21 14:13: [facility] has stated that this patient insurance is not in network. I am currently waiting to hear back from Una [facility]. Original Note: I spoke with this patient today regarding discharge plans. Patient expressed an interest in placement only under her short term Medicare benefit. Patient stated that she did not want shelter care under Medicaid. Patient also stated that she is only interested in placement at [facility] or [facility]. I have faxed patient information to both facilities and I will follow up once patient information is reviewed. Discharge date is unknown at this time.
--- NOTE | 2021-06-11 13:35 | HMH.OTEV ---
OT Inpatient Evaluation Rehab OT IP Evaluation Start: 06/11/21 09:00 Freq: ONCE Status: Complete Protocol: Document 06/11/21 13:23 [facility] (Rec: 06/11/21 13:35 [facility] [id number]) Rehab OT IP Assessment Subjective History Pt oriented x 3 on arrival. MAX VERBAL cues were required for participation in therapy evaluation; this was second attempt. Pt refused evaluation this morning. Pt was admitted following [facility] appointment with PCP for weakness and debilitation. Pt has a past medical history of Anxiety, Arrhythmia, Cancer, Chronic Obstructive Pulmonary Disease (COPD), Coronary Artery Disease, Cerebrovascular Accident, Deep Vein Thrombosis, Depression, Diabetes Mellitus Type 2, Hyperlipidemia, Hypertension, Migraine (longstanding headache issues, with frequent ER visits and trreatments.). Pt reports prior to being in hospital she lived at [facility] alone. Pt explains she was able to complete all ADLs and IADLs. However, since she has become ill she has not been engaging in daily living tasks due to being too tired . Pt claims she normally does not use a walker during ambulation . Subjective What the hell do you want me to do now? Pt required max verbal cues to engage in therapy evaluation. Pt compelted bed mobility with sba and went from supine to sitting at eob. Pt completed sit to stand from eob with cga. Pt sat back down at eob with cga. Pt was able to complete lower body dressing with sba in order to doff and don socks. Pt stood
[2021-06-11 15:41] VITALS: BP 110/76; PULSE 58; RESP 16; TEMP 36.8; O2SAT 99
[2021-06-11 20:00] VITALS: BP 118/69; PULSE 80; RESP 18; TEMP 36.9; O2SAT 98
[2021-06-11 20:46] LABS: POC Glucose,Bedside 88 (70-110)
[2021-06-12 01:19] LABS: POC Glucose,Bedside 216 (70-110)
[2021-06-12 08:00] VITALS: BP 161/62; PULSE 82; RESP 20; TEMP 36.3; O2SAT 96
[2021-06-12 08:40] LABS: POC Glucose,Bedside 71 (70-110)
[2021-06-12 08:40] LABS: POC Glucose,Bedside 540 (70-110)
[2021-06-12 08:40] LABS: POC Glucose,Bedside 180 (70-110)
[2021-06-12 08:40] LABS: POC Glucose,Bedside 69 (70-110)
--- NOTE | 2021-06-12 09:09 | HMH.ACPN2 ---
<Tianna Pérez - Last Filed: 06/12/21 09:15> Internal Medicine - PN: Subj *Date: 06/12/21 *Time: 09:15 Interval history: Patient states she continues to feel very weak. She has walked to the bathroom with assistance. She was able to work with physical therapy a little bit yesterday but was very tired. She eats poorly although nursing documentation indicates she ate 50 and 75% of her meals yesterday. She denies chest pain and shortness of breath. Exam Vital signs and Labs for Last 24 Hours: Temp Pulse Resp BP Pulse Ox 98.4 F 80 18 118/69 98 06/11/21 20:00 06/11/21 20:00 06/11/21 20:00 06/11/21 20:00 06/11/21 20:00 Laboratory Results - last 24 hr 06/10/21 21:52: POC Glucose 540 H* 06/11/21 01:58: POC Glucose 69 L 06/11/21 02:22: POC Glucose 71 06/11/21 02:33: POC Glucose 180 H 06/11/21 11:22: POC Glucose 88 06/11/21 21:21: POC Glucose 216 H I & O for Last 24 hours: Intake & Output 06/09/21 06/10/21 06/11/21 06/12/21 11:59 11:59 11:59 11:59 Intake Total 510 / 510 600 / 600 480 / 480 Balance 510 / 510 600 / 600 480 / 480 Weight 122 lb 122 lb 122 lb 0.061 oz Microbiology Reports for the Last 24 Hours: Microbiology 06/10/21 20:10 Urine,Clean Catch Urine Culture - Preliminary NO GROWTH AFTER 24 HOURS - Constitutional no acute distress, thin - *Routine Respiratory Exam Present: CTA bilaterally (Anteriorly and posteriorly) - *Routine Cardiovascular Exam Present: RRR, murmur - *Routine Abdominal Exam Present: soft, normoactive bowel sounds, tenderness (Generalized) - *Routine Extremities Exam Absent: edema, calf tenderness - *Routine Neurological Exam Present: alert, oriented X3 - Routine Psychiatric Exam Present: depressed Assessment and Plan (1) Altered mental status Status: Acute Qualifiers: Altered mental status type: disorientation Qualified Code(s): R41.0 - Disorientation, unspecified Category: Medical Code(s): R41.82 - Altered mental status, unspecified (2) Dehydration Status: Acute Category: Medical Code(s): E86.0 - Dehydration (3) Hyperglycemia due to type 2 diabetes mellitus Status: Acute Qualifiers: Diabetes mellitus half-way insulin use: unspecified half-way insulin use status Qualified Code(s): E11.65 - Type 2 diabetes mellitus with hyperglycemia Category: Medical Code(s): E11.65 - Type 2 diabetes mellitus with hyperglycemia (4) History of meningioma of the brain Status: Acute Category: Medical Code(s): Z86.011 - Personal history of benign neoplasm of the brain (5) History of CVA (cerebrovascular accident) Status: Acute Category: Medical Code(s): Z86.73 - Personal history of transient ischemic attack (TIA), and cerebral infarction without residual deficits (6) Hypertension Status: Acute Qualifiers: Hypertension type: essential hypertension Category: Medical Code(s): I10 - Essential (primary) hypertension (7) Migraine Status: Acute Category: Medical Code(s): G43.909 - Migraine, unspecified, not intractable, without status migrainosus (8) Noncompliance with medication regimen Status: Acute Category: Medical Code(s): Z91.14 - Patient's other noncompliance with medication regimen (9) Type 2 diabetes mellitus Status: Acute Category: Medical Code(s): E11.9 - Type 2 diabetes mellitus without complications (10) Depression Status: Acute Category: Medical Code(s): F32.A - Depression, unspecified - Assessment and plan all Dx Assessment and Plan for all problems:: Care management is working on disposition. Patient will continue with physical therapy today. Eating and out of bed activity encouraged. <Vasu Gutierres - Last Filed: 06/16/21 23:04> Internal Medicine - PN: Subj *Date: 06/16/21 *Time: 23:03 Exam Vital signs and Labs for Last 24 Hours: Temp Pulse Resp BP Pulse Ox 97.8 F 74 18 167/
[2021-06-12 11:44] VITALS: BMI 20.7
[2021-06-12 12:43] LABS: POC Glucose,Bedside 182 (70-110)
[2021-06-12 12:43] LABS: POC Glucose,Bedside 196 (70-110)
[2021-06-12 16:00] VITALS: BP 176/82; PULSE 75; RESP 18; TEMP 36.9; O2SAT 99
[2021-06-12 16:39] LABS: POC Glucose,Bedside 238 (70-110)
--- NOTE | 2021-06-12 18:10 | PC.NURSE ---
pT HAS LAID IN BED MOST OF THIS SHIFT DESPITE FREQUENT ENCOURAGEMENT FROM NURSING STAFF. PT HAS BEEN BELLIGERENT TOWARDS STAFF MULTIPLE TIMES T/O THIS SHIFT AND HAS REFUSED DIFFERENT MEDICATIONS DESPITE BEING EDUCATED ON THEIR IMPORTANCE. NO OTHER ACUTE CHANGES OR COMPLAINTS, WILL CONTINUE TO MONITOR.
[2021-06-12 19:13] VITALS: BP 147/74; PULSE 79; RESP 20; TEMP 36.6; O2SAT 97
[2021-06-12 20:00] VITALS: O2SAT 97
[2021-06-12 21:34] LABS: POC Glucose,Bedside 295 (70-110)
[2021-06-13] VITALS: BP 142/72; PULSE 82; RESP 20; TEMP 36.4; O2SAT 97
[2021-06-13 05:00] VITALS: BMI 20.7
[2021-06-13 05:03] LABS: POC Glucose,Bedside 134 (70-110)
[2021-06-13 05:51] LABS: POC Glucose,Bedside 95 (70-110)
[2021-06-13 08:00] VITALS: BP 167/75; PULSE 74; RESP 18; TEMP 36.6; O2SAT 96
--- NOTE | 2021-06-13 08:47 | HMH.ACPN2 ---
<Latesha Menendez - Last Filed: 06/13/21 08:47> Internal Medicine - PN: Subj *Date: 06/13/21 *Time: 08:47 Interval history: Patient states she is feeling a little bit better today. She still has some GI upset and feels like she is on the verge of a migraine. She does feel a little bit stronger today and slept better last night. Exam Vital signs and Labs for Last 24 Hours: Temp Pulse Resp BP Pulse Ox 97.6 F 82 20 142/72 H 97 06/13/21 00:00 06/13/21 00:00 06/13/21 00:00 06/13/21 00:00 06/13/21 00:00 Laboratory Results - last 24 hr 06/12/21 05:17: POC Glucose 134 H 06/12/21 09:41: POC Glucose 196 H 06/12/21 12:33: POC Glucose 182 H 06/12/21 16:22: POC Glucose 238 H 06/12/21 21:08: POC Glucose 295 H 06/13/21 05:38: POC Glucose 95 I & O for Last 24 hours: Intake & Output 06/10/21 06/11/21 06/12/21 06/13/21 11:59 11:59 11:59 11:59 Intake Total 510 / 510 600 / 600 600 / 600 480 / 480 Balance 510 / 510 600 / 600 600 / 600 480 / 480 Weight 122 lb 122 lb 121 lb 4.068 oz 121 lb 4.068 oz Microbiology Reports for the Last 24 Hours: Microbiology 06/10/21 20:10 Urine,Clean Catch Urine Culture - Preliminary - Constitutional no acute distress - *Routine Respiratory Exam Present: CTA bilaterally - *Routine Cardiovascular Exam Present: RRR - *Routine Abdominal Exam Present: soft, normoactive bowel sounds. Absent: tenderness - *Routine Extremities Exam Absent: cyanosis, clubbing, edema - *Routine Skin Exam Present: warm. Absent: rash - *Routine Neurological Exam Present: alert, oriented X3 Assessment and Plan (1) Altered mental status Status: Acute Qualifiers: Altered mental status type: disorientation Qualified Code(s): R41.0 - Disorientation, unspecified Category: Medical Code(s): R41.82 - Altered mental status, unspecified (2) Dehydration Status: Acute Category: Medical Code(s): E86.0 - Dehydration (3) Hyperglycemia due to type 2 diabetes mellitus Status: Acute Qualifiers: Diabetes mellitus oil heaterman insulin use: unspecified usp insulin use status Qualified Code(s): E11.65 - Type 2 diabetes mellitus with hyperglycemia Category: Medical Code(s): E11.65 - Type 2 diabetes mellitus with hyperglycemia (4) History of meningioma of the brain Status: Acute Category: Medical Code(s): Z86.011 - Personal history of benign neoplasm of the brain (5) History of CVA (cerebrovascular accident) Status: Acute Category: Medical Code(s): Z86.73 - Personal history of transient ischemic attack (TIA), and cerebral infarction without residual deficits (6) Hypertension Status: Acute Qualifiers: Hypertension type: essential hypertension Category: Medical Code(s): I10 - Essential (primary) hypertension (7) Migraine Status: Acute Category: Medical Code(s): G43.909 - Migraine, unspecified, not intractable, without status migrainosus (8) Noncompliance with medication regimen Status: Acute Category: Medical Code(s): Z91.14 - Patient's other noncompliance with medication regimen (9) Type 2 diabetes mellitus Status: Acute Category: Medical Code(s): E11.9 - Type 2 diabetes mellitus without complications (10) Depression Status: Acute Category: Medical Code(s): F32.A - Depression, unspecified - Assessment and plan all Dx Assessment and Plan for all problems:: Patient is stable to be discharged to [facility] today. Will order some Ubrelvy for her headache. <Vasu Gutierres - Last Filed: 06/13/21 16:47> Internal Medicine - PN: Subj *Date: 06/13/21 *Time: 16:44 Exam Vital signs and Labs for Last 24 Hours: Temp Pulse Resp BP Pulse Ox 97.8 F 74 18 167/75 H 96 06/13/21 08:00 06/13/21 08:00 06/13/21 08:00 06/13/21 08:00 06/13/21 08:00 Laboratory Results - last 24 hr 06/12/21 05:17: POC Glucose 134 H 06/12/21 21:08: POC Glucose 295 H 06/13/21 05:
[2021-06-13 09:12] LABS: Coronavirus 19, PCR Not Detected (NotDetected); Influenza A, PCR Not Detected (NotDetected); Influenza B, PCR Not Detected (NotDetected)
--- NOTE | 2021-06-13 09:17 | HMH.DCSUM ---
General - General Admission date:: 06/09/21 <Vasu Gutierres - 08/09/21 18:07> 06/09/21 <Latesha Menendez - 06/13/21 09:22> Discharge date: 06/13/21 <Latesha Menendez - 06/13/21 09:22> HPI HPI: This 56 y.o. WF was seen by Dr. Swann in [place] and admitted. Dr. Swann was contacted last evening by some friends of Ms. Maravilla who were concerned that she was showing altered mental status as well as altered physical status. they were concerned that she may not be taking her medications properly. She seems to be sleeping a lot. She has complaints of pain in her right side. She is diabetic and in [place] her blood sugar was found to be 363 on finger stick, and A1C=10.9%. It was felt she was dehydrated. She was able to converse cogently with Dr. Swann. She is admitted for IV fluids and further evaluation. <Latesha Menendez - 06/13/21 09:22> Hospital Course Hospital Course: Patient was admitted and started on IV fluids. She initially refused lab work and her IV, but when a relative came to be with her in the hospital, she agreed to evaluation. She had a chest x-ray showing nothing acute. Her confusion did improve and she was pleasant and cooperative by 06/10/2021. She stated she simply got too weak to care for self at home and had not been eating well. She stated she was not taking her medications appropriately or monitoring her blood sugar at home. Her A1c was greater than 10 and she was started back on some of her home medications. She was started on sliding scale insulin. Dr. Gutierres did discuss the need for at least short-term skilled care for PT and OT. She was evaluated and therapy began working with her. She was eating and out of bed activity was encouraged. Care management was working on disposition. By 06/13/2021, she was feeling better. She did complain of some GI upset and felt like she was on the verge of a migraine. She felt stronger and a bed was found for her [facility]. She was given Ubrelvy for her headache and was stable to be discharged to [place] for short-term rehab. <Latesha Menendez - 06/13/21 09:22> Objective Vital signs: Temp Pulse Resp BP Pulse Ox 97.8 F 74 18 167/75 H 96 06/13/21 08:00 06/13/21 08:00 06/13/21 08:00 06/13/21 08:00 06/13/21 08:00 <Vasu Gutierres - 08/09/21 18:07> Temp Pulse Resp BP Pulse Ox 97.8 F 74 18 167/75 H 96 06/13/21 08:00 06/13/21 08:00 06/13/21 08:00 06/13/21 08:00 06/13/21 08:00 <Latesha Menenedz - 06/13/21 09:22> Narrative: - Constitutional no acute distress - *Routine Respiratory Exam Present: CTA bilaterally - *Routine Cardiovascular Exam Present: RRR - *Routine Abdominal Exam Present: soft, normoactive bowel sounds. Absent: tenderness - *Routine Extremities Exam Absent: cyanosis, clubbing, edema - *Routine Skin Exam Present: warm. Absent: rash - *Routine Neurological Exam Present: alert, oriented X3 <Latesha Menendez - 06/13/21 09:22> Results Labs on day of discharge: Labs from last 24 hours 06/13/21 06/12/21 06/12/21 05:38 21:08 16:22 POC Glucose 95 295 H 238 H 06/12/21 06/12/21 06/12/21 12:33 09:41 05:17 POC Glucose 182 H 196 H 134 H Preliminary micro results at discharge 06/10/21 20:10 Urine Culture - Preliminary Urine,Clean Catch <Latesha Menendez - 06/13/21 09:22> DS: Diagnosis - Discharge Diagnosis (1) Altered mental status Status: Acute (2) Dehydration Status: Acute (3) Hyperglycemia due to type 2 diabetes mellitus Status: Acute (4) History of meningioma of the brain Status: Acute (5) History of CVA (cerebrovascular accident) Status: Acute (6) Hypertension Status: Acute (7) Migraine Status: Acute (8) Noncompliance with medication regimen Status: Acute (9) Type 2 diabetes mellitus Status: Acute (10) Depression Status: Acute <ElvinJamie pinedaa - 06/13/21 09:17>
== END 2021-06-13 13:30 ==
LOC: 2ND 06-10 08:00 → OB 06-10 19:25 → 2ND 06-11 02:50
PROVIDERS: Admitting Provider Family Medicine; PCP Family Medicine; Visit Provider Family Medicine
DX: E86.0 Dehydration (principal); E11.65 Type 2 diabetes mellitus with hyperglycemia; Z86.011 Personal history of benign neoplasm of the brain; G43.909 Migraine, unspecified, not intractable, without status migrainosus; Z91.14 Patient's other noncompliance with medication regimen; R41.0 Disorientation, unspecified; Z20.822 Contact with and (suspected) exposure to COVID-19; Z88.8 Allergy status to other drugs, medicaments and biological substances; Z79.899 Other long term (current) drug therapy; Z86.73 Personal history of transient ischemic attack (TIA), and cerebral infarction without residual deficits; F32.A Depression, unspecified
CPT/HCPCS: G0378; G0379; 36415; 71045; 80053; 80305; 81001; 82150; 82947; 82962; 83605; 83690; 83735; 84484; 85025; 87086; 93005; 97110; 97162; 97166; 97530; C9803; U0003; U0005

== ENCOUNTER 2021-07-10 15:45 | Outpatient (CLI) | payer MEDICARE, MEDICAID, SELFPAY ==
[2021-07-10 15:50] VITALS: BP 124/67; PULSE 100; RESP 20; TEMP 36.9; O2SAT 95
[2021-07-10 16:30] VITALS: BP 124/61; PULSE 68; RESP 20; TEMP 36.9; O2SAT 100
== END 2021-07-10 16:32 | disposition home or self-care (01) ==
LOC: INF 15:46
PROVIDERS: PCP Family Medicine; Visit Provider Family Medicine
DX: G43.C1 Periodic headache syndromes in child or adult, intractable (principal)
CPT/HCPCS: 96372

== ENCOUNTER 2021-09-11 16:55 | Emergency (ER) | payer MEDICARE, MEDICAID, SELFPAY ==
[2021-09-11 16:56] VITALS: BP 150/83; PULSE 72; RESP 16; O2SAT 96; BMI 22.6
--- NOTE | 2021-09-11 17:07 | CT_ITS ---
PROCEDURE INFORMATION: Exam: CT Head Without Contrast Exam date and time: 09/11/2021 5:07 PM Age: 56 years old Clinical indication: Altered mental status/memory loss; Prior surgery; Surgery date: 6+ months TECHNIQUE: Imaging protocol: Computed tomography of the head without contrast. Total images: 268 Radiation optimization: All CT scans at this facility use at least one of these dose optimization techniques: automated exposure control; mA and/or kV adjustment per patient size (includes targeted exams where dose is matched to clinical indication); or iterative reconstruction. COMPARISON: CT HEAD/BRAIN WO CON 11/29/2020 3:09 PM FINDINGS: Brain: Mild-moderate generalized atrophy. Mild bilateral white matter hypodensities which are nonspecific but most commonly associated with chronic microvascular ischemia in this age group. No extra-axial fluid collections. No evidence of acute intracranial hemorrhage. Kulkarni-white differentiation is well maintained. No CT evidence of large territory acute or subacute intracranial ischemia/infarct. Chronic encephalomalacia in the inferior right cerebellar hemisphere and left frontal lobe unchanged. No intracranial mass lesions. No midline shift or herniation. Cerebral ventricles: Mild compensatory ventriculomegaly secondary to central atrophy. Paranasal sinuses: Mucosal thickening in the left anterior ethmoid distributions suggesting mild chronic sinus inflammatory disease. The other paranasal sinuses are clear. No fluid levels. Mastoid air cells: Visualized mastoid air cells are clear. Orbital cavity: Visualized orbital contents demonstrate no acute abnormality. Vasculature: Moderate calcific atherosclerosis. No asymmetric vascular hyperdensities suggestive of thrombosis are identified. Bones/joints: Chronic appearing left frontotemporal craniotomy site without gross complication. No acute osseous abnormalities. Soft tissues: The scalp and visualized soft tissues demonstrate no acute abnormality. Other findings: The IACs are grossly normal. The sella is grossly normal. IMPRESSION: 1. No acute intracranial process. No intracranial hemorrhage or mass effect. 2. No significant change from 11/29/2020. 3. Atrophy and chronic microvascular changes consistent with age. Chronic encephalomalacia in the left frontal lobe and right cerebellar hemisphere unchanged. 4. Moderate calcific atherosclerosis.
--- NOTE | 2021-09-11 17:23 | PC.NURSE ---
pt to CT
--- NOTE | 2021-09-11 17:37 | HMH.EDAMS ---
ED Disposition Clinical Impression: Hypoglycemia Disposition: Home, Self-Care Condition on Discharge: Good Instructions: DI for Hypoglycemia Referrals: Vasu Gutierres MD [Primary Care Provider] - - Critical Care Critical Care Time: No Attestation: On 09/11/21, the high probability of a clinically significant, sudden or life threatening deterioration of the following system(s) required my full and direct attention, intervention and personal management. The time I documented below is in addition to time spent performing reported procedures but includes the following listed in this critical care notation. Medical Decision Making - Medical Records Medical records reviewed: Yes: I reviewed the patient's medical records. - Corey Inquiry Pt receiving controlled substance: No Vital Signs: 09/11/21 16:56 Pulse Rate [Left Radial] 72 Respiratory Rate 16 Blood Pressure [Left Arm] 150/83 H Blood Pressure Mean [Left Arm] 105 Blood Pressure Source [Left Arm] Automatic Cuff Blood Pressure Position [Left Arm] Sitting 02 Sat by Pulse Oximetry 96 Oxygen Delivery Method Room Air - Lab Data Lab Results 09/11/21 17:40: POC Glucose 52 L 09/11/21 17:48: WBC 12.3 H, RBC 4.35, Hgb 13.1, Hct 40.4, MCV 92.8, MCH 30.2, MCHC 32.6, RDW 12.7, Plt Count 163, MPV 9.6, Neut % (Auto) 80.4 H, Lymph % (Auto) 14.4, [place] % (Auto) 4.3, Eos % (Auto) 0.3, Baso % (Auto) 0.7, Neut # (Auto) 9.9 H, Lymph # (Auto) 1.8, [place] # (Auto) 0.5, Eos # (Auto) 0.0, Baso # (Auto) 0.1 09/11/21 17:48: Sodium 137, Potassium 4.0, Chloride 105, Carbon Dioxide 22, Anion Gap 14.0, BUN 22 H, Creatinine 0.90, Estimated Creat Clear 68, Estimated GFR 64, Est GFR ( Amer) 78, Glucose 39 L*, Calcium 8.9, Total Bilirubin 0.2, AST 32, ALT 28, Alkaline Phosphatase 99, Total Protein 6.7, Albumin 4.0, Globulin 2.7, Albumin/Globulin Ratio 1.5 02/22/22 18:18: POC Glucose 59 L 02/22/22 18:29: Urine Color Yellow, Urine Appearance Clear, Urine pH 6.0, Ur Specific [place]dall 1.010, Urine Protein Negative, Urine Glucose (UA) Negative, Urine Ketones Negative, Urine Blood Negative, Urine Nitrate Negative, Urine Bilirubin Negative, Urine Urobilinogen 0.2, Ur Leukocyte Esterase 1+ A, Urine RBC Occasional, Urine WBC 3-5, Ur Squamous Epith Cells 3-5, Urine Bacteria Trace 09/11/21 19:00: POC Glucose 86 Result diagrams: 09/11/21 17:48 09/11/21 17:48 Orders (Tests/Meds): ED MEDICATIONS Discontinued Medications Generic Name Dose Route Start Last Admin Trade Name Freq PRN Reason Stop Dose Admin Dextrose 50 ml 09/11/21 19:05 Dextrose 50% 50ml Syringe (Crash Cart) IVP 09/11/21 19:06 ONCE ONE ORDERS Category Date Time Status Urine Culture Stat Micro 09/11/21 18:29 Received - CT Data CT Scan: Head Time Received: 19:[address] Reviewed: Yes: I have reviewed the patient's CT results, I have viewed the radiologist's interpretation Findings Narrative: IMPRESSION: 1. No acute intracranial process. No intracranial hemorrhage or mass effect. 2. No significant change from 11/29/2020. 3. Atrophy and chronic microvascular changes consistent with age. Chronic encephalomalacia in the left frontal lobe and right cerebellar hemisphere unchanged. 4. Moderate calcific atherosclerosis. - Reevaluation(s) Time: 19:26 Reevaluation #1: On reevaluation, the patient is much more alert. She is tolerating oral intake without difficulty. Her blood sugar has improved. The patient states that she has been taking CBD Gummies which apparently have been lowering her blood glucose. They decreased her insulin to half of her previous dose. Patient states that she forgot to eat prior to going to the dentist. Patient is to resume checking her blood sugars prior to insulin administration. She was given strict return precautions. Needs follow-up with PCP in 48 hours. Verbalized understanding. Medical Decision Narrative: This is a 56-year-old female presenting
--- NOTE | 2021-09-11 17:45 | PC.NURSE ---
Dietary called for supper tray
[2021-09-11 17:47] LABS: POC Glucose,Bedside 52 (70-110)
[2021-09-11 17:57] LABS: Basophils # 0.1 K/mm3 (0-0.2); Basophils % 0.7 % (0.1-2.0); Eosinophils % 0.3 % (0.1-12.0); Hematocrit 40.4 % (37.0-47.0); Hemoglobin 13.1 g/dL (12.2-16.2); Lymphocytes # 1.8 K/mm3 (0.7-4.5); Lymphocytes % 14.4 % (10-50); Mean Corpuscular HGB Conc 32.6 g/dL (31.8-35.4); Mean Corpuscular Hemoglobin 30.2 pg (27.0-31.2); Mean Corpuscular Volume 92.8 fl (81-99); Mean Platelet Volume 9.6 fl (7.4-10.4); Monocytes # 0.5 K/mm3 (0.1-1.0); Monocytes % 4.3 % (1.7-9.3); Neutrophils # 9.9 K/mm3 (1.8-7.8); Neutrophils % 80.4 % (37.0-80.0); Platelet Count 163 K/mm3 (142-424); Red Blood Count 4.35 M/mm3 (4.20-5.40); Red Cell Distribution Width 12.7 % (11.5-17.5); White Blood Count 12.3 K/mm3 (4.8-10.8)
[2021-09-11 18:00] LABS: Chloride 105 mmol/L (98-107); Sodium 137 mmol/L (136-145)
[2021-09-11 18:02] LABS: Blood Urea Nitrogen 22 mg/dl (7-17); Creatinine Clearance Estimated 68 mL/min (50-200); Estimated Glomerular Filt Rate 64 ml/min (>60); GFR (African American) 78 ML/MIN (>60)
[2021-09-11 18:03] LABS: Alanine Aminotransferase 28 U/L (12-78); Albumin/Globulin Ratio 1.5 (1.1-1.8); Alkaline Phosphatase 99 U/L (38-126); Aspartate Amino Transferase 32 U/L (14-36); Bilirubin,Total 0.2 mg/dl (0.2-1.3); Calcium 8.9 mg/dl (8.4-10.2); Carbon Dioxide 22 mmol/L (22.0-30.0); Globulin 2.7 g/dL (1.3-3.2); Total Protein,Serum 6.7 g/dl (6.3-8.2)
--- NOTE | 2021-09-11 18:06 | PC.NURSE ---
Patient eating at bedside
[2021-09-11 18:16] LABS: Glucose 39 mg/dl (74-100)
--- NOTE | 2021-09-11 18:20 | PC.NURSE ---
Patient ambulatory to restroom
--- NOTE | 2021-09-11 18:20 | PC.NURSE ---
LAB CALLED WITH [employer]ITICALS GLUCOSE 39. PT IS EATING
[2021-09-11 18:25] LABS: POC Glucose,Bedside 59 (70-110)
[2021-09-11 18:31] LABS: Microscopic, Urine URINE MICROSCOPIC (MICROSCOPIC)
[2021-09-11 18:36] LABS: Appearance,Urine CLEAR (Clear); Bilirubin,Urine Negative (Negative); Blood, Urine Negative (Negative); Color,Urine YELLOW (Yellow); Glucose,Urine (UA) Negative (Negative); Ketones,Urine Negative (Negative); Leukocyte Esterase,Urine 1+ (Negative); Nitrate,Urine Negative (Negative); Protein,Urine Negative (Negative); Urobilinogen,Urine 0.2 EU/dl (0.2)
[2021-09-11 18:48] LABS: Bacteria,Urine Trace /lpf; RBC,Urine Occasional #/hpf (0-3)
[2021-09-11 19:07] LABS: POC Glucose,Bedside 86 (70-110)
[2021-09-11 19:33] VITALS: BP 198/96; PULSE 86; RESP 20; TEMP 36.8; O2SAT 99
== END 2021-09-11 19:43 | disposition home or self-care (01) ==
PROVIDERS: Emergency Provider Emergency Medicine; PCP Family Medicine
DX: E11.649 Type 2 diabetes mellitus with hypoglycemia without coma (principal); E11.65 Type 2 diabetes mellitus with hyperglycemia; Z79.4 Long term (current) use of insulin; Z79.84 Long term (current) use of oral hypoglycemic drugs; Z86.73 Personal history of transient ischemic attack (TIA), and cerebral infarction without residual deficits; E03.9 Hypothyroidism, unspecified; I10 Essential (primary) hypertension; I25.10 Atherosclerotic heart disease of native coronary artery without angina pectoris; Z79.899 Other long term (current) drug therapy
CPT/HCPCS: 70450; 80053; 81001; 82962; 85025; 87086; 99283; 99284

== ENCOUNTER 2021-10-26 16:12 | Outpatient (CLI) | payer MEDICARE, MEDICAID, SELFPAY ==
[2021-10-26 16:18] VITALS: BMI 20.9
--- NOTE | 2021-10-26 16:24 | PC.NURSE ---
1622-BLOOD DRAWN FOR LABS ORDERED BY DR DSOUZA AT THIS TIME.
[2021-10-26 16:25] VITALS: BP 164/102; PULSE 96; RESP 16; O2SAT 97
[2021-10-26 16:36] LABS: Chloride 102 mmol/L (98-107)
[2021-10-26 16:37] LABS: Potassium 4.1 mmoL/L (3.5-5.1); Sodium 136 mmol/L (136-145)
[2021-10-26 16:39] VITALS: BP 182/97; PULSE 96; RESP 16
[2021-10-26 16:39] LABS: Alanine Aminotransferase 30 U/L (12-78); Aspartate Amino Transferase 24 U/L (14-36); Bilirubin,Total 0.4 mg/dl (0.2-1.3); Blood Urea Nitrogen 23 mg/dl (7-17); Creatinine Clearance Estimated 63 mL/min (50-200); Estimated Glomerular Filt Rate 64 ml/min (>60); GFR (African American) 78 ML/MIN (>60)
[2021-10-26 16:40] LABS: Albumin Level 3.8 g/dl (3.5-5.0); Albumin/Globulin Ratio 1.6 (1.1-1.8); Alkaline Phosphatase 95 U/L (38-126); Anion Gap 7.1 mEq/L (5-15); Calcium 8.9 mg/dl (8.4-10.2); Carbon Dioxide 31 mmol/L (22.0-30.0); Globulin 2.4 g/dL (1.3-3.2); Glucose 241 mg/dl (74-100); Magnesium 1.2 mg/dl (1.6-2.3); Total Protein,Serum 6.2 g/dl (6.3-8.2)
[2021-10-26 16:44] LABS: Basophils # 0.1 K/mm3 (0-0.2); Basophils % 1.6 % (0.1-2.0); Eosinophils % 0.7 % (0.1-12.0); Hematocrit 40.7 % (37.0-47.0); Hemoglobin 13.7 g/dL (12.2-16.2); Lymphocytes # 2.4 K/mm3 (0.7-4.5); Lymphocytes % 39.5 % (10-50); Mean Corpuscular HGB Conc 33.6 g/dL (31.8-35.4); Mean Corpuscular Hemoglobin 30.2 pg (27.0-31.2); Mean Corpuscular Volume 89.7 fl (81-99); Mean Platelet Volume 8.2 fl (7.4-10.4); Monocytes # 0.2 K/mm3 (0.1-1.0); Monocytes % 3.7 % (1.7-9.3); Neutrophils # 3.3 K/mm3 (1.8-7.8); Neutrophils % 54.5 % (37.0-80.0); Platelet Count 252 K/mm3 (142-424); Red Blood Count 4.53 M/mm3 (4.20-5.40)
[2021-10-26 17:04] LABS: Hemoglobin A1C 8.1 % (4.0-6.0)
== END 2021-10-26 16:41 | disposition home or self-care (01) ==
PROVIDERS: PCP Family Medicine; Visit Provider Family Medicine
DX: G43.901 Migraine, unspecified, not intractable, with status migrainosus (principal); E11.9 Type 2 diabetes mellitus without complications; Z79.4 Long term (current) use of insulin
CPT/HCPCS: 80053; 83036; 83735; 85025; 96372

== ENCOUNTER 2021-11-14 13:02 | Outpatient (CLI) | payer MEDICARE, MEDICAID, SELFPAY ==
[2021-11-14 13:30] VITALS: BP 182/98; PULSE 81; RESP 18; TEMP 36.4; O2SAT 98
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
[2021-11-14 14:09] VITALS: BP 189/91; PULSE 88; RESP 18; O2SAT 97
--- NOTE | 2021-11-14 15:18 | SW/DCPLANNER ---
I have attempted to contact this patient regarding placement per Dr Rueda request: no answer and VM full at this time.
[2021-11-14 15:28] LABS: POC Glucose,Bedside 246 (70-110)
== END 2021-11-14 14:09 | disposition home or self-care (01) ==
LOC: INF 13:06
PROVIDERS: PCP Family Medicine; Visit Provider Family Medicine
DX: G43.901 Migraine, unspecified, not intractable, with status migrainosus (principal); Z79.899 Other long term (current) drug therapy
CPT/HCPCS: 82962; 96372

== ENCOUNTER 2021-12-06 16:54 | Observation (INO) | payer MEDICARE, MEDICAID, SELFPAY ==
[2021-12-06 16:55] VITALS: BP 104/67; PULSE 88; RESP 18; TEMP 37.1; O2SAT 97; BMI 18.6
--- NOTE | 2021-12-06 17:07 | HMH.EDGENADL ---
ED Disposition Clinical Impression: Dehydration, PAT (acute kidney injury) Disposition: Admitted as Observation Condition on Discharge: Good Referrals: Vasu Engle MD [Primary Care Provider] - - Critical Care Critical Care Time: No Attestation: On , the high probability of a clinically significant, sudden or life threatening deterioration of the following system(s) required my full and direct attention, intervention and personal management. The time I documented below is in addition to time spent performing reported procedures but includes the following listed in this critical care notation. Medical Decision Making - Medical Records Medical records reviewed: Yes: I reviewed the patient's medical records. - Corey Inquiry Pt receiving controlled substance: No Vital Signs: 12/06/21 16:55 12/06/21 18:16 Temperature 98.7 F Temperature Source Oral Pulse Rate 80 Pulse Rate [Right Radial] 88 Respiratory Rate 18 Blood Pressure 115/73 Blood Pressure [Right Arm] 104/67 L Blood Pressure Mean [Right Arm] 79 Blood Pressure Source Automatic Cuff Blood Pressure Source [Right Arm] Automatic Cuff Blood Pressure Position Sitting Blood Pressure Position [Right Arm] Sitting 02 Sat by Pulse Oximetry 97 98 Oxygen Delivery Method Room Air Room Air - Lab Data Lab Results 12/06/21 17:35: WBC 7.5, RBC 3.83 L, Hgb 11.8 L, Hct 35.1 L, MCV 91.6, MCH 30.8, MCHC 33.6, RDW 13.7, Plt Count 353, MPV 8.0, Neut % (Auto) 44.6, Lymph % (Auto) 47.4, [place] % (Auto) 4.6, Eos % (Auto) 1.1, Baso % (Auto) 2.3 H, Neut # (Auto) 3.4, Lymph # (Auto) 3.6, [place] # (Auto) 0.4, Eos # (Auto) 0.1, Baso # (Auto) 0.2 12/06/21 17:35: Sodium 135 L, Potassium 3.8, Chloride 97 L, Carbon Dioxide 26, Anion Gap 15.8 H, BUN 47 H, Creatinine 2.20 H, Estimated Creat Clear 23, Estimated GFR 23 L, Est GFR ( Amer) 28 L, Glucose 285 H, Calcium 9.8, Total Bilirubin < 0.1 L, AST 32, ALT 33, Alkaline Phosphatase 106, Total Protein 6.3, Albumin 4.0, Globulin 2.3, Albumin/Globulin Ratio 1.7 Result diagrams: 12/06/21 17:35 12/06/21 17:35 Orders (Tests/Meds): ED MEDICATIONS Generic Name Dose Route Start Last Admin Trade Name Audi PRN Reason Stop Dose Admin Sodium Chloride 1,000 mls @ 999 mls/hr 12/06/21 17:15 12/06/21 17:43 Sod Chlor 0.9% 1000ml Bag IV 12/06/21 18:15 999 mls/hr .Q1H1M ZANDER Administration ORDERS Category Date Time Status Urinalysis-Acute [Urinalysis and Microscopic] Stat Lab 12/06/21 18:13 Ordered EKG Request [ECG Request by /Nse] Stat Y 12/06/21 17:03 Ordered - Physician Consults Physician Consulted: dr engle accepts obs here Medical Decision Narrative: ekg by me nsr, low volt, no st elev General Adult HPI - General Stated complaint: sent by Dr Dolan low BP Time Seen by Provider: 12/06/21 17:07 - History of Present Illness HPI narrative: sent by outpt neurology appt for low bp pt w/o physical complaint h/o htn 2 meds today Severity: moderate Consistency: constant Relieving factors: none Exacerbating factors: none Associated symptoms: denies other symptoms - Related Data Home Medications Medication Instructions Recorded Confirmed insulin NPH-regular 70-30 U-100 43 unit SQ BID ml 09/21/20 11/14/21 insulin 100 unit/mL subcutaneous pen tizanidine 4 mg tablet 4 mg PO TID tab 09/21/20 11/14/21 trazodone 150 mg tablet 150 mg PO HS 09/21/20 11/14/21 Galcanezumab-Gnlm [Emgality Pen] 120 mg SQ MONTHLY 06/09/21 11/14/21 Metformin HCl [Glucophage Xr] 500 mg PO HS 06/09/21 11/14/21 Pregabalin [Lyrica 200mg Cap] 200 mg PO TID 06/09/21 11/14/21 Rimegepant Sulfate [Nurtec Odt] 150 mg PO DAILYP PRN 06/09/21 11/14/21 Insulin Lispro [HumaLOG 100 0 unit SQ ACHS 04/08/22 04/27/22 units/mL 3mL vial (SSI)] lisinopriL [Zestril 20mg tab] 20 mg PO DAILY 10/26/21 11/14/21 Previous Rx's Medication Instructions Recorded amlodipine 5 mg tablet 5 mg PO DAILY #30 tab 02
[2021-12-06 17:48] LABS: Basophils # 0.2 K/mm3 (0-0.2); Basophils % 2.3 % (0.1-2.0); Eosinophils # 0.1 K/mm3 (0.0-0.4); Eosinophils % 1.1 % (0.1-12.0); Hematocrit 35.1 % (37.0-47.0); Hemoglobin 11.8 g/dL (12.2-16.2); Lymphocytes # 3.6 K/mm3 (0.7-4.5); Lymphocytes % 47.4 % (10-50); Mean Corpuscular HGB Conc 33.6 g/dL (31.8-35.4); Mean Corpuscular Hemoglobin 30.8 pg (27.0-31.2); Mean Corpuscular Volume 91.6 fl (81-99); Monocytes # 0.4 K/mm3 (0.1-1.0); Monocytes % 4.6 % (1.7-9.3); Neutrophils # 3.4 K/mm3 (1.8-7.8); Neutrophils % 44.6 % (37.0-80.0); Platelet Count 353 K/mm3 (142-424); Red Blood Count 3.83 M/mm3 (4.20-5.40); Red Cell Distribution Width 13.7 % (11.5-17.5); White Blood Count 7.5 K/mm3 (4.8-10.8)
[2021-12-06 17:54] LABS: Alanine Aminotransferase 33 U/L (12-78); Albumin/Globulin Ratio 1.7 (1.1-1.8); Alkaline Phosphatase 106 U/L (38-126); Anion Gap 15.8 mEq/L (5-15); Aspartate Amino Transferase 32 U/L (14-36); Blood Urea Nitrogen 47 mg/dl (7-17); Calcium 9.8 mg/dl (8.4-10.2); Carbon Dioxide 26 mmol/L (22.0-30.0); Chloride 97 mmol/L (98-107); Creatinine Clearance Estimated 23 mL/min (50-200); Estimated Glomerular Filt Rate 23 ml/min (>60); GFR (African American) 28 ML/MIN (>60); Globulin 2.3 g/dL (1.3-3.2); Glucose 285 mg/dl (74-100); Potassium 3.8 mmoL/L (3.5-5.1); Sodium 135 mmol/L (136-145); Total Protein,Serum 6.3 g/dl (6.3-8.2)
[2021-12-06 17:57] LABS: Bilirubin,Total < 0.1 mg/dl (0.2-1.3)
--- NOTE | 2021-12-06 18:11 | ECG_ITS ---
APPROVED REPORT Exam: Resting ECG HR:81 bpm ECG Measurements Heart Rate 81 AXES MO 176 P 47 QRSd 99 QRS 16 QT 400 T 69 QTc 437 Conclusion SINUS RHYTHM LOW QRS VOLTAGE IN PRECORDIAL LEADS [QRS DEFLECTION < 1.0 mV IN CHEST LEADS] BORDERLINE ECG UNCONFIRMED REPORT Electronically signed by : Gerardo Willett MD 12/08/2021 16:03:34
[2021-12-06 18:16] VITALS: BP 115/73; PULSE 80; O2SAT 98
--- NOTE | 2021-12-06 18:19 | PC.NURSE ---
patient sitting up in bed, eating a sandwich. she reports she is not able to urinate at this time
--- NOTE | 2021-12-06 18:21 | PC.NURSE ---
Dr Richard speaking with dr engle
[2021-12-06 18:59] LABS: Coronavirus 19, PCR Not Detected (NotDetected); Influenza A, PCR Not Detected (NotDetected); Influenza B, PCR Not Detected (NotDetected)
[2021-12-06 19:04] VITALS: BMI 17.4
[2021-12-06 20:00] VITALS: BP 130/75; PULSE 68; RESP 19; TEMP 36.4; O2SAT 97
[2021-12-06 20:21] VITALS: BP 115/75; PULSE 81; RESP 18; TEMP 37.1; O2SAT 98
--- NOTE | 2021-12-06 20:33 | PC.NURSE ---
patient up to the floor via wheelchair @ this time.
[2021-12-06 21:33] LABS: POC Glucose,Bedside 360 (70-110)
--- NOTE | 2021-12-06 23:01 | PC.NURSE ---
Patient is not able to state medication names and dosages. Completed med reconciliation with external med list on file.
[2021-12-07 03:55] VITALS: BP 103/68; PULSE 65; RESP 18; TEMP 36.6; O2SAT 96
--- NOTE | 2021-12-07 04:25 | PC.NURSE ---
Addendum entered by Stella Huff RN 12/07/21 06:42: Urine specimen collected at this time and sent to lab. Original Note: Patient has rested well t/o shift, after being medicated per MAR for anxiety and restlessness. Pt remains A/O, speech is slurred and garbled. Pt remains on room air with O2 sats >90%. Pt has voiced no c/o of pain or SOA thus far in shift. Pt can ambulate independently to bathroom to void. Pt still needs a urine specimen , patient is aware of needs. Tried to collect when patient arrived to room from ED and patient flushed urine before we could collect. Will try to collect when patient wakes up.
[2021-12-07 04:34] VITALS: BMI 17.4
[2021-12-07 05:45] LABS: POC Glucose,Bedside 126 (70-110)
[2021-12-07 06:51] LABS: Microscopic, Urine URINE MICROSCOPIC (MICROSCOPIC)
[2021-12-07 06:55] LABS: Appearance,Urine SL CLOUDY (Clear); Bilirubin,Urine Negative (Negative); Blood, Urine Negative (Negative); Color,Urine YELLOW (Yellow); Glucose,Urine (UA) 2+ (Negative); Ketones,Urine Negative (Negative); Leukocyte Esterase,Urine 2+ (Negative); Nitrate,Urine Negative (Negative); Protein,Urine Negative (Negative); Specific Gravity, Urine 1.015 (1.005-1.030); Urobilinogen,Urine 0.2 EU/dl (0.2)
[2021-12-07 06:59] LABS: Basophils # 0.2 K/mm3 (0-0.2); Basophils % 2.2 % (0.1-2.0); Eosinophils # 0.1 K/mm3 (0.0-0.4); Eosinophils % 1.2 % (0.1-12.0); Hematocrit 36.6 % (37.0-47.0); Hemoglobin 12.5 g/dL (12.2-16.2); Lymphocytes # 3.5 K/mm3 (0.7-4.5); Lymphocytes % 46.4 % (10-50); Mean Corpuscular HGB Conc 34.1 g/dL (31.8-35.4); Mean Corpuscular Hemoglobin 31.5 pg (27.0-31.2); Mean Corpuscular Volume 92.4 fl (81-99); Mean Platelet Volume 8.3 fl (7.4-10.4); Monocytes # 0.3 K/mm3 (0.1-1.0); Monocytes % 4.2 % (1.7-9.3); Neutrophils # 3.5 K/mm3 (1.8-7.8); Neutrophils % 46.2 % (37.0-80.0); Platelet Count 322 K/mm3 (142-424); Red Blood Count 3.96 M/mm3 (4.20-5.40); Red Cell Distribution Width 13.9 % (11.5-17.5); White Blood Count 7.6 K/mm3 (4.8-10.8)
--- NOTE | 2021-12-07 07:04 | HMH.PHAVTE ---
[facility] Pharmacy VTE Monitoring - Patient Demographics Admission date: 12/06/21 Report Date: 12/07/21 Time: 07:04 Allergies/Adverse Reactions: Patient Allergies cephalexin [CEPHALEXIN] Allergy (Intermediate, Verified 03/02/21 14:16) I-ITCHING Cephalosporins Allergy (Intermediate, Verified 03/02/21 14:16) ITCHING levofloxacin [From LEVAQUIN] Allergy (Intermediate, Verified 03/02/21 14:16) I-RASH Macrolide Antibiotics Allergy (Intermediate, Verified 03/02/21 14:16) ITCHING Penicillins [PENICILLINS] Allergy (Intermediate, Verified 03/02/21 14:16) I-RASH, VOMITING Quinolones [QUINOLONES] Allergy (Intermediate, Verified 03/02/21 14:16) I-RASH Sulfa (Sulfonamide Antibiotics) [SULFA (SULFONAMIDE ANTIBIOTICS)] Allergy (Intermediate, Verified 03/02/21 14:16) I-RASH trimethoprim [TRIMETHOPRIM] Allergy (Intermediate, Verified 03/02/21 14:16) I-RASH ciprofloxacin [From CIPRO] Allergy (Unknown, Verified 03/02/21 14:16) Unknown allergy reaction eletriptan [From RELPAX] Allergy (Unknown, Verified 03/02/21 14:16) Unknown allergy reaction ergonovine [ERGONOVINE] Allergy (Unknown, Verified 03/02/21 14:16) NA-NAUSEA/VOMITING erythromycin base [ERYTHROMYCIN BASE] Allergy (Unknown, Verified 03/02/21 14:16) Unknown allergy reaction ketorolac [KETOROLAC] Allergy (Unknown, Verified 03/02/21 14:16) NA-NAUSEA/VOMITING methadone [METHADONE] Allergy (Unknown, Verified 03/02/21 14:16) SWELLING OF FEET metoclopramide [From REGLAN] Allergy (Unknown, Verified 03/02/21 14:16) NA-HALLUCINATIONS naratriptan [NARATRIPTAN] Allergy (Unknown, Verified 03/02/21 14:16) Unknown allergy reaction quetiapine [From SEROQUEL] Allergy (Unknown, Verified 03/02/21 14:16) Unknown allergy reaction sumatriptan [From IMITREX] Allergy (Unknown, Verified 03/02/21 14:16) Unknown allergy reaction vilazodone [From VIIBRYD] Allergy (Unknown, Verified 03/02/21 14:16) Unknown allergy reaction Height: 1.68 m Weight: 49.4 kg Patient Problems: Current Active Problems Acute kidney injury (Acute) Dehydration (Acute) - VTE Risk Labs: VTE Related Lab Results Hgb 12.5 g/dL (12.2-16.2) 12/07/21 06:30 Hct 36.6 % (37.0-47.0) L 12/07/21 06:30 Plt Count 322 K/mm3 (142-424) 12/07/21 06:30 BUN 47 mg/dl (7-17) H 12/06/21 17:35 Creatinine 2.20 mg/dl (0.52-1.04) H 12/06/21 17:35 Estimated Creat Clear 23 mL/min (50-200) 12/06/21 17:35 VTE Score: 4 VTE Risk Level: Low Risk - Prophylaxis VTE Prophylaxis Ordered?: Yes Types of VTE Prophylaxis: TEDS Knee High Location of Applied Device: Bilateral Lower Extremeties
[2021-12-07 07:11] LABS: Anion Gap 8.6 mEq/L (5-15); Blood Urea Nitrogen 43 mg/dl (7-17); Calcium 8.8 mg/dl (8.4-10.2); Carbon Dioxide 27 mmol/L (22.0-30.0); Chloride 105 mmol/L (98-107); Creatinine Clearance Estimated 30 mL/min (50-200); Estimated Glomerular Filt Rate 33 ml/min (>60); GFR (African American) 40 ML/MIN (>60); Glucose 112 mg/dl (74-100); Potassium 3.6 mmoL/L (3.5-5.1); Sodium 137 mmol/L (136-145)
[2021-12-07 07:14] LABS: Bacteria,Urine 1+ /lpf; Squamous Epithelial Cell,Urine TNTC #/hpf (0-5); WBC,Urine 20-50 #/hpf (0-3)
[2021-12-07 07:32] VITALS: BP 100/61; PULSE 70; RESP 16; TEMP 37.1; O2SAT 97
[2021-12-07 07:38] LABS: Amphetamine/Metha Screen,Urine Positive ng/ml (<1000); Barbiturates Screen,Urine Negative ng/ml (<200)
[2021-12-07 07:39] LABS: Benzodiazepines Screen,Urine Negative ng/ml (<200)
[2021-12-07 07:42] LABS: Cannabinoid Screen,Urine Negative ng/ml (<50)
[2021-12-07 07:45] LABS: Cocaine Screen,Urine Negative ng/ml (<300); Methadone Screen,Urine Negative ng/ml (<300)
[2021-12-07 07:46] LABS: Opiate Screen,Urine Negative ng/ml (<300)
[2021-12-07 07:47] LABS: Phencyclidine Screen,Urine Negative ng/ml (<25)
--- NOTE | 2021-12-07 09:12 | HMH.HPDC ---
<Sonya Busby - Last Filed: 12/07/21 09:28> General - General Admission date:: 12/06/21 Discharge date: 12/07/21 *Admission Date: 12/06/21 *Chief complaint: Dehydration, PAT *History of present illness: Ms. Maravilla is a 56yo WF with history of DM, HTN, tobacco use, tardive dyskinesia, depression, drug abuse, and frequent migraines for which she has been following with neurology Dr. Dolan. She was seen in Dr. Dolan's office yesterday and noted to be hypotensive and was sent to ED for further evaluation. In the ED, her EKG was NSR with no ST elevation. Labs were significant for elevated glucose of 285, decreased renal function with BUN 47, Creatinine 2.20, and GFR 23. Hemoglobin was low at 11.8 and WBC was WNL. Her drug screen was noted to be positive for amphetamines. She had no physical complaint. She was given a liter fluid bolus and her case was discussed with Dr. Gutierres who agreed to admit her for observation overnight. [facility] History Medical History: Reports:: Anxiety, Arrhythmia, Cancer, Chronic Obstructive Pulmonary Disease (COPD), Coronary Artery Disease, Cerebrovascular Accident, Deep Vein Thrombosis, Depression, Diabetes Mellitus Type 2, Hyperlipidemia, Hypertension, Migraine Denies:: Diabetes Mellitus Type 1, Internal Pacemaker, MRSA, Seizures *Have you ever received a pneumonia vaccine?: No *Have you received a flu vaccine this season?: No Other Medical History: Reports: Arthritis, Hypothyroidism, Sinus Problems, Thyroid Disease, Other Laterality Cases: Right: Lumpectomy, Bilateral: Other Other Surgeries: Yes: Cardiac Catheterization, Colonoscopy, Tubal Ligation, Other (DREZ procedure x 2; excision of meningioma). No: Pacemaker Amputation: No Fractures: No - *Social History Smoking Status: Current every day smoker Tobacco Type: cigarettes # Packs/Day (cigarettes): 1 Alcohol Intake: current Alcohol Intake Frequency:: a few times a month Substance Use Type: methamphetamine Last Used Substance: days (ago) *Occupational Status:: unemployed Housing: assisted living facility Household Members: none *Travel in the last 8 weeks: None - Psychiatric History Pschychiatric History:: Reports:: Anxiety, Depression Family Hx:: Unable to obtain [employer] history: Tubal Ligation Review of Systems - Constitutional Reports fatigue, Reports headache(s), Reports lack of energy, Reports weakness, Reports weight loss, Denies body ache(s), Denies chills, Denies fever(s) - Eyes Denies blurry vision - ENT Reports dizziness, Reports headache(s), Denies ear pain, Denies nasal congestion, Denies nasal discharge, Denies sinus pressure, Denies sore throat - *Cardiovascular Reports lightheadedness, Denies chest pain, Denies shortness of breath, Denies generalized swelling - *Respiratory Denies chest congestion, Denies cough, Denies shortness of breath, Denies wheezing - *Gastrointestinal Reports loose stools, Denies abdominal pain, Denies change in bowel habits, Denies nausea, Denies vomiting - *Genitourinary Denies difficulty urinating, Denies painful urination, Denies blood in urine - *Neurologic Reports dizziness, Reports headache(s), Denies unsteadiness, Denies frequent falls - Hematologic/Lymphatic Denies enlarged lymph nodes Exam Vital signs and Labs for Last 24 Hours: Temp Pulse Resp BP Pulse Ox 98.7 F 70 16 100/61 L 97 12/07/21 07:32 12/07/21 07:32 12/07/21 07:32 12/07/21 07:32 12/07/21 07:32 Laboratory Results - last 24 hr 12/06/21 17:35: WBC 7.5, RBC 3.83 L, Hgb 11.8 L, Hct 35.1 L, MCV 91.6, MCH 30.8, MCHC 33.6, RDW 13.7, Plt Count 353, MPV 8.0, Neut % (Auto) 44.6, Lymph % (Auto) 47.4, [place] % (Auto) 4.6, Eos % (Auto) 1.1, Baso % (Auto) 2.3 H, Neut # (Auto) 3.4, Lymph # (Auto) 3.6, [place] # (Auto) 0.4, Eos # (Auto) 0.1, Baso # (Auto) 0.2 12/06/21 17:35: Sodium 135 L, Potassium 3.8, Chloride 97 L, Carbon Dioxide 26, Anion Gap 15.8 H, BUN 47 H, Creatinine 2.20 H, Estimated Creat Clear 23, Estimated GFR
--- NOTE | 2021-12-07 12:02 | PC.NURSE ---
Pt finally got a hold of her friend to come get her. The friend is on her way.
--- NOTE | 2021-12-07 12:03 | PC.NURSE ---
I have to turn the bed alarm on because the pt keep swaying from side to side while sitting on the side of bed. She is not happy about it. She stated that were just nosey and want to know what going on it there. I explained that I need to try and keep her safe while she is still here waiting on a ride. She told me she didn't care about me or my job. She needed to get out of here since we don't care about her .
--- NOTE | 2021-12-10 11:50 | CARE MANAGER ---
Patient admitted back to hospital and is still here today. Unable to do follow up call, will follow up after current admission.
== END 2021-12-07 12:27 | disposition home or self-care (01) ==
LOC: ER 18:24 → 2ND 18:40
PROVIDERS: Admitting Provider Family Medicine; Emergency Provider Emergency Medicine; PCP Family Medicine; Visit Provider Family Medicine
DX: N17.9 Acute kidney failure, unspecified (principal); E86.0 Dehydration; Z20.822 Contact with and (suspected) exposure to COVID-19; Z88.0 Allergy status to penicillin; Z88.8 Allergy status to other drugs, medicaments and biological substances; Z88.5 Allergy status to narcotic agent; Z88.2 Allergy status to sulfonamides; Z79.84 Long term (current) use of oral hypoglycemic drugs; Z79.899 Other long term (current) drug therapy; G24.01 Drug induced subacute dyskinesia; I10 Essential (primary) hypertension; F17.210 Nicotine dependence, cigarettes, uncomplicated
CPT/HCPCS: G0378; 80048; 80053; 80305; 81001; 82962; 85025; 87086; 93005; 99285; C9803; U0003; U0005

== ENCOUNTER 2021-12-09 15:01 | Observation (INO) | payer MEDICARE, MEDICAID, SELFPAY ==
[2021-12-09] VITALS (8 sets, daily range): BP systolic 146–167; BP diastolic 73–98; PULSE 65–82; RESP 16–18; TEMP 36.6–36.8; O2SAT 95–100; BMI 18.6; BMI 22.4
--- NOTE | 2021-12-09 15:15 | PC.NURSE ---
walked into pt room to triage pt. pt was difficult to understand so this nurse asked if pt would please clarify reason for wanting to be seen. pt yells stop asking me fucking questions and just listen to me. this nurse explained i was just trying to clarify the information provided by patient. pt continues yelling profanity. this nurse asked pt to please stop yelling profanities, that all ed staff was trying to do was help. pt then states fuck you bitch get out of my room. this nurse exited the room at this time.
[2021-12-09 15:16] LABS: Chloride 105 mmol/L (98-107); Potassium 4.1 mmoL/L (3.5-5.1); Sodium 138 mmol/L (136-145)
[2021-12-09 15:17] LABS: Basophils # 0.2 K/mm3 (0-0.2); Basophils % 1.8 % (0.1-2.0); Eosinophils # 0.1 K/mm3 (0.0-0.4); Eosinophils % 1.1 % (0.1-12.0); Hematocrit 39.8 % (37.0-47.0); Hemoglobin 13.5 g/dL (12.2-16.2); Lymphocytes # 2.5 K/mm3 (0.7-4.5); Mean Corpuscular HGB Conc 33.8 g/dL (31.8-35.4); Mean Corpuscular Hemoglobin 30.5 pg (27.0-31.2); Mean Corpuscular Volume 90.2 fl (81-99); Mean Platelet Volume 8.5 fl (7.4-10.4); Monocytes # 0.3 K/mm3 (0.1-1.0); Monocytes % 3.3 % (1.7-9.3); Neutrophils # 5.1 K/mm3 (1.8-7.8); Neutrophils % 62.7 % (37.0-80.0); Platelet Count 287 K/mm3 (142-424); Red Blood Count 4.41 M/mm3 (4.20-5.40); Red Cell Distribution Width 13.7 % (11.5-17.5); White Blood Count 8.2 K/mm3 (4.8-10.8)
[2021-12-09 15:18] LABS: Blood Urea Nitrogen 17 mg/dl (7-17); Creatinine Clearance Estimated 63 mL/min (50-200); Estimated Glomerular Filt Rate 74 ml/min (>60); GFR (African American) 89 ML/MIN (>60)
[2021-12-09 15:19] LABS: Alanine Aminotransferase 35 U/L (12-78); Albumin Level 3.9 g/dl (3.5-5.0); Albumin/Globulin Ratio 1.4 (1.1-1.8); Alkaline Phosphatase 129 U/L (38-126); Anion Gap 10.1 mEq/L (5-15); Aspartate Amino Transferase 32 U/L (14-36); Bilirubin,Total 0.5 mg/dl (0.2-1.3); Calcium 9.9 mg/dl (8.4-10.2); Carbon Dioxide 27 mmol/L (22.0-30.0); Globulin 2.8 g/dL (1.3-3.2); Glucose 188 mg/dl (74-100); Total Protein,Serum 6.7 g/dl (6.3-8.2)
--- NOTE | 2021-12-09 16:21 | PC.NURSE ---
pt to the restroom with family member
--- NOTE | 2021-12-09 16:31 | HMH.EDGENADL ---
ED Disposition Clinical Impression: Headache Qualifiers: Headache type: unspecified Headache chronicity pattern: acute headache Intractability: intractable Qualified Code(s): R51.9 - Headache, unspecified Diarrhea Qualifiers: Diarrhea type: unspecified type Qualified Code(s): R19.7 - Diarrhea, unspecified Disposition: Admitted as Observation Condition on Discharge: Fair - Critical Care Critical Care Time: No Attestation: On 12/09/21, the high probability of a clinically significant, sudden or life threatening deterioration of the following system(s) required my full and direct attention, intervention and personal management. The time I documented below is in addition to time spent performing reported procedures but includes the following listed in this critical care notation. Medical Decision Making - Medical Records Medical records reviewed: Yes: I reviewed the patient's medical records. MR Comment: Reviewed discharge summary, emergency department note, and neurology office visit note from Dr. Dolan for admission 12/06/2021 through 12/07/2021. Patient was being seen in the office of Dr. Dolan for migraines and noted to have low blood pressure. Sent to the emergency department and found to have acute kidney injury with creatinine 2.2. - Corey Inquiry Pt receiving controlled substance: Yes Corey was queried for this patient: Yes Risks and benefits of using a controlled substance: were not discussed with pt by me Vital Signs: 12/09/21 15:10 12/09/21 15:15 12/09/21 15:30 Temperature 98.0 F Temperature Source Oral Pulse Rate 82 78 Pulse Rate [Left Radial] 80 Respiratory Rate 16 Blood Pressure 150/80 H 167/87 H Blood Pressure [Right Arm] 150/80 H Blood Pressure Mean 110 113 Blood Pressure Mean [Right Arm] 103 02 Sat by Pulse Oximetry 96 97 97 Oxygen Delivery Method Room Air 12/09/21 16:00 12/09/21 16:30 12/09/21 17:00 Temperature Temperature Source Pulse Rate 70 65 79 Pulse Rate [Left Radial] Respiratory Rate Blood Pressure 146/73 H 147/75 H 163/80 H Blood Pressure [Right Arm] Blood Pressure Mean 104 108 107 Blood Pressure Mean [Right Arm] 02 Sat by Pulse Oximetry 98 100 95 Oxygen Delivery Method - Lab Data Lab Results 12/09/21 14:50: WBC 8.2, RBC 4.41, Hgb 13.5, Hct 39.8, MCV 90.2, MCH 30.5, MCHC 33.8, RDW 13.7, Plt Count 287, MPV 8.5, Neut % (Auto) 62.7, Lymph % (Auto) 31.0, [place] % (Auto) 3.3, Eos % (Auto) 1.1, Baso % (Auto) 1.8, Neut # (Auto) 5.1, Lymph # (Auto) 2.5, [place] # (Auto) 0.3, Eos # (Auto) 0.1, Baso # (Auto) 0.2 12/09/21 14:50: Sodium 138, Potassium 4.1, Chloride 105, Carbon Dioxide 27, Anion Gap 10.1, BUN 17 D, Creatinine 0.80 D, Estimated Creat Clear 63, Estimated GFR 74, Est GFR ( Amer) 89 D, Glucose 188 H, Calcium 9.9, Total Bilirubin 0.5, AST 32, ALT 35, Alkaline Phosphatase 129 H, Total Protein 6.7, Albumin 3.9, Globulin 2.8, Albumin/Globulin Ratio 1.4 12/09/21 17:44: SARS-CoV-2 (PCR) Not detected, Influenza A Untype (PCR) Not detected, Influenza Type B (PCR) Not detected Result diagrams: 12/09/21 14:50 12/09/21 14:50 Orders (Tests/Meds): ED MEDICATIONS Generic Name Dose Route Start Last Admin Trade Name Freq PRN Reason Stop Dose Admin Sodium Chloride 1,000 mls @ 999 mls/hr 12/09/21 18:09 Sod Chlor 0.9% 1000ml Bag IV 12/09/21 19:09 .Q1H1M ZANDER Sodium Chloride 10 ml 12/09/21 18:09 Sodium Chloride 0.9% 10ml Flush Syringe IV 01/08/22 15:03 NEEDED PRN Maintain IV Site Discontinued Medications Generic Name Dose Route Start Last Admin Trade Name Freq PRN Reason Stop Dose Admin Butorphanol Tartrate 1 mg 12/09/21 16:50 12/09/21 17:12 Butorphanol Tartrate 1 Mg/Ml Vial IV 12/09/21 16:51 1 mg ONCE ONE Administration Sodium Chloride 1,000 mls @ 999 mls/hr 12/09/21 15:15 12/09/21 15:12 Sod Chlor 0.9% 1000ml Bag IV 12/09/21 16:15 999 mls/hr .Q1H1M ZANDER Administration Ondansetr
--- NOTE | 2021-12-09 17:00 | PC.NURSE ---
pt family member approached the desk to notify staff she was leaving. family states pt was being unruly and hateful to them and gave a contact number to staff if any information was needed.
--- NOTE | 2021-12-09 17:30 | PC.NURSE ---
CALL PLACED TO DR DSOUZA
--- NOTE | 2021-12-09 17:45 | PC.NURSE ---
HOUSE CALLED FOR BED
[2021-12-09 17:49] LABS: Coronavirus 19, PCR Not Detected (NotDetected); Influenza A, PCR Not Detected (NotDetected); Influenza B, PCR Not Detected (NotDetected)
--- NOTE | 2021-12-09 17:49 | PC.NURSE ---
asked pt to provide a urine sample as she was ambulating to the restroom and she refused.
--- NOTE | 2021-12-09 18:11 | PC.NURSE ---
REPORT CALLED TO FLOOR
--- NOTE | 2021-12-09 19:16 | PC.NURSE ---
PT ARRIVED TO FLOOR VIA STRETCHER FROM ED W/STAFF @ 191
--- NOTE | 2021-12-10 03:50 | PC.NURSE ---
Pt arrived on floor at 1925. PT very upset and making loud breathing noises of disgust that she has to answer admission questions. During the interview and assessment she would mention how I was bothering her and I needed to hurry up and get this done. Pt requested a regular sprite. Offered a diet sprite and she refused. Stateing that she is alergic to all diet drinks. Pt informed that she was on a diabetic diet and her sugar was too elevated to have a non diet drink. PT then became more agitated. Was willing to complete admission questions with sarcastic remarks, arms slapping the bed, stated Why the hell do you need to know that?, Heavy breathing and different forms of disapproval during the process. PT stated that she was having a migraine and offered to give pain meds and return to paperwork in hr. But PT stated Lets get this over with. Pt did allow for some of the paperwork to be completed. Will attempt to complete at a later time. Due to refusal.
[2021-12-10 04:00] VITALS: BP 155/82; PULSE 73; RESP 18; TEMP 36.6; O2SAT 99
[2021-12-10 05:00] VITALS: BMI 22.6
[2021-12-10 06:30] LABS: POC Glucose,Bedside 242 (70-110)
--- NOTE | 2021-12-10 07:15 | P.CONPHA_ITS ---
[facility] Pharmacy VTE Monitoring - Patient Demographics Admission date: 12/09/21 Report Date: 12/10/21 Time: 07:15 Allergies/Adverse Reactions: Patient Allergies cephalexin [CEPHALEXIN] Allergy (Intermediate, Verified 03/02/21 14:16) I-ITCHING Cephalosporins Allergy (Intermediate, Verified 03/02/21 14:16) ITCHING levofloxacin [From LEVAQUIN] Allergy (Intermediate, Verified 03/02/21 14:16) I-RASH Macrolide Antibiotics Allergy (Intermediate, Verified 03/02/21 14:16) ITCHING Penicillins [PENICILLINS] Allergy (Intermediate, Verified 03/02/21 14:16) I-RASH, VOMITING Quinolones [QUINOLONES] Allergy (Intermediate, Verified 03/02/21 14:16) I-RASH Sulfa (Sulfonamide Antibiotics) [SULFA (SULFONAMIDE ANTIBIOTICS)] Allergy (Intermediate, Verified 03/02/21 14:16) I-RASH trimethoprim [TRIMETHOPRIM] Allergy (Intermediate, Verified 03/02/21 14:16) I-RASH ciprofloxacin [From CIPRO] Allergy (Unknown, Verified 03/02/21 14:16) Unknown allergy reaction eletriptan [From RELPAX] Allergy (Unknown, Verified 03/02/21 14:16) Unknown allergy reaction ergonovine [ERGONOVINE] Allergy (Unknown, Verified 03/02/21 14:16) NA-NAUSEA/VOMITING erythromycin base [ERYTHROMYCIN BASE] Allergy (Unknown, Verified 03/02/21 14:16) Unknown allergy reaction ketorolac [KETOROLAC] Allergy (Unknown, Verified 03/02/21 14:16) NA-NAUSEA/VOMITING methadone [METHADONE] Allergy (Unknown, Verified 03/02/21 14:16) SWELLING OF FEET metoclopramide [From REGLAN] Allergy (Unknown, Verified 03/02/21 14:16) NA-HALLUCINATIONS naratriptan [NARATRIPTAN] Allergy (Unknown, Verified 03/02/21 14:16) Unknown allergy reaction quetiapine [From SEROQUEL] Allergy (Unknown, Verified 03/02/21 14:16) Unknown allergy reaction sumatriptan [From IMITREX] Allergy (Unknown, Verified 03/02/21 14:16) Unknown allergy reaction vilazodone [From VIIBRYD] Allergy (Unknown, Verified 03/02/21 14:16) Unknown allergy reaction Height: 1.52 m Weight: 52.163 kg Patient Problems: Current Active Problems Diarrhea (Acute) Headache (Chronic) - VTE Risk Labs: VTE Related Lab Results Hgb 13.5 g/dL (12.2-16.2) 12/09/21 14:50 Hct 39.8 % (37.0-47.0) 12/09/21 14:50 Plt Count 287 K/mm3 (142-424) 12/09/21 14:50 BUN 17 mg/dl (7-17) D 12/09/21 14:50 Creatinine 0.80 mg/dl (0.52-1.04) D 12/09/21 14:50 Estimated Creat Clear 63 mL/min (50-200) 12/09/21 14:50 VTE Score: 1 VTE Risk Level: Very Low Risk - Prophylaxis VTE Prophylaxis Ordered?: Yes Types of VTE Prophylaxis: TEDS Knee High Location of Applied Device: Bilateral Lower Extremeties
--- NOTE | 2021-12-10 07:52 | HMH.PHAINT ---
MEDICATION RECONCILIATION COMPLETED ON PATIENT USING DISCHARGE SUMMARY FROM PREVIOUS ADMISSION. -DIMITRY FITZPATRICK, ALICIAD
--- NOTE | 2021-12-10 08:37 | HMH.HPDC ---
<Tianna Pérez - Last Filed: 12/10/21 08:37> General - General Admission date:: 12/09/21 Discharge date: 12/10/21 *Admission Date: 12/09/21 *Chief complaint: Headache *History of present illness: Ms. Maravilla is a 56-year-old female with a history of migraine headaches, hypertension, tobacco use disorder, meningiomas, stroke with expressive aphasia; type 2 diabetes mellitus, anxiety and depression, and tardive dyskinesia who presented to [facility] emergency room after experiencing a migraine headache not relieved by her home meds. She also noted that she had had diarrhea for 2 days which has since resolved. She denies fever, any upper respiratory symptoms, although she has had some nausea with infrequent vomiting. She states she actually has not been out of bed for about 3 weeks only to go to the bathroom has had diminished oral intake with weight loss. She was admitted to the hospital overnight last week with hypotension and dehydration. She received IV fluids and then was discharged to home. With evaluation in the emergency room laboratory data was normal. She was given Stadol, Phenergan, and Zofran for her headache. She was brought in by a friend and both patient and friend felt that she could not manage at home by herself. At this time she was interested in custodial placement. She was admitted with intractable headache and for possible placement. This morning patient continues to have a headache. She is more interested in going home with home health and manager social responsibility until after she attends her brothers wedding in a week. [facility] History Medical History: Reports:: Anxiety, Arrhythmia, Cancer, Chronic Obstructive Pulmonary Disease (COPD), Coronary Artery Disease, Cerebrovascular Accident, Deep Vein Thrombosis, Depression, Diabetes Mellitus Type 2, Gastroesophageal Reflux Disease(GERD), Hyperlipidemia, Hypertension, Migraine, Urinary Tract Infection Denies:: Diabetes Mellitus Type 1, Internal Pacemaker, MRSA, Seizures *Have you ever received a pneumonia vaccine?: No *Have you received a flu vaccine this season?: Yes Other Medical History: Reports: Arthritis, Hypothyroidism, Sinus Problems, Thyroid Disease, Other Comment:: Tardive dyskinesia; meningioma; expressive aphasia. Laterality Cases: Right: Lumpectomy, Bilateral: Other Other Surgeries: Yes: Cardiac Catheterization, Colonoscopy, Tubal Ligation, Other (DREZ procedure x 2; excision of meningioma). 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 Review of Systems - Constitutional Reports headache(s), Reports lack of energy, Reports weight loss, Denies fever(s) - Eyes Reports sensitivity to light - ENT Reports dizziness, Reports headache(s), Reports nasal discharge, Denies ear pain, Denies facial pain, Denies sore throat - *Cardiovascular Reports leg swelling, Denies chest pain, Denies shortness of breath, Denies irregular heart rhythm - *Respiratory Denies chest congestion, Denies cough, Denies shortness of breath - *Gastrointestinal Reports change in bowel habits, Reports change in stools, Reports loose stools, Reports nausea, Reports vomiting, Denies abdominal pain, Denies coffee ground vomit, Denies constipation, Denies cramping, Denies heartburn, Denies vomiting blood, Denies bright, red blood in stools, Denies black, tarry stools - *Genitourinary Denies difficulty urinating, Denies painful urinati
[2021-12-10 08:59] VITALS: BP 166/78; PULSE 68; RESP 18; TEMP 36.6; O2SAT 97
--- NOTE | 2021-12-10 15:31 | CARE MANAGER ---
I spoke with patient this morning in regards to custodial placement. She is not wanting to go into a facility at this time. She wants to wait until after her brother's wedding next Friday. She agreed to services. Patient information faxed to [facility], who was unable to provide services. Patient was accepted per Am[facility] at [facility] for SN (medication management) and SW (help with placement).
== END 2021-12-10 10:40 | disposition home health service (06) ==
LOC: ER 16:11 → 2ND 17:55
PROVIDERS: Admitting Provider Family Medicine; Emergency Provider Emergency Medicine; PCP Family Medicine; Visit Provider Family Medicine
DX: G43.909 Migraine, unspecified, not intractable, without status migrainosus; E11.43 Type 2 diabetes mellitus with diabetic autonomic (poly)neuropathy; E11.65 Type 2 diabetes mellitus with hyperglycemia; G24.01 Drug induced subacute dyskinesia; Z79.899 Other long term (current) drug therapy; Z86.011 Personal history of benign neoplasm of the brain; I25.10 Atherosclerotic heart disease of native coronary artery without angina pectoris; J44.9 Chronic obstructive pulmonary disease, unspecified; K21.9 Gastro-esophageal reflux disease without esophagitis; I10 Essential (primary) hypertension; E78.5 Hyperlipidemia, unspecified; F17.210 Nicotine dependence, cigarettes, uncomplicated; Z79.84 Long term (current) use of oral hypoglycemic drugs; Z20.822 Contact with and (suspected) exposure to COVID-19
CPT/HCPCS: 96365; G0378; 80053; 82962; 85025; 96375; 99285; C9803; J0595; J2405; U0003; U0005

== ENCOUNTER 2021-12-28 12:34 | Outpatient (CLI) | payer MEDICARE, MEDICAID, SELFPAY ==
[2021-12-28 13:05] VITALS: BP 161/90; PULSE 70; RESP 18; O2SAT 97
== END 2021-12-28 13:05 | disposition home or self-care (01) ==
LOC: INF 12:35
PROVIDERS: PCP Family Medicine; Visit Provider Family Medicine
DX: G43.C1 Periodic headache syndromes in child or adult, intractable (principal)
CPT/HCPCS: 96372

== ENCOUNTER 2022-01-29 14:56 | Outpatient (CLI) | payer MEDICARE, MEDICAID, SELFPAY ==
[2022-01-29 15:30] VITALS: BP 194/106; BP 198/111; PULSE 66; PULSE 70; RESP 18; RESP 20; O2SAT 94
== END 2022-01-29 15:30 | disposition home or self-care (01) ==
LOC: INF 14:59
PROVIDERS: PCP Family Medicine; Visit Provider Family Medicine
DX: G43.C1 Periodic headache syndromes in child or adult, intractable (principal)
CPT/HCPCS: 96372; J0595

== ENCOUNTER → 2022-02-20 12:52 | Outpatient (CLI) | payer MEDICARE, MEDICAID, SELFPAY ==
--- NOTE | 2022-02-20 12:52 | CT_ITS ---
FINAL REPORT CLINICAL HISTORY: worsening of migraine headache COMPARISON: September 11, 2021 FINDINGS: Axial images of the head were obtained without contrast. Coronal reformatted images were also obtained. This study was performed with techniques to keep radiation doses as low as reasonably achievable (ALARA). Individualized dose reduction techniques using automated exposure control or adjustment of mA and/or kV according to the patient's size were employed. Postoperative changes are seen from left craniotomy. There is stable left hemisphere encephalomalacia. Periventricular low-attenuation areas are seen consistent with mild chronic ischemic changes. There is no evidence of intracranial hemorrhage or mass. There is no evidence of acute infarct. There is no evidence of shift of the midline structures. IMPRESSION: Left craniotomy with stable left hemisphere encephalomalacia. Mild periventricular chronic ischemic changes. No acute intracranial abnormality identified. Reviewed, Interpreted and Dictated by Harsha Knowles III, MD Transcribed by Lan Carlson Authenticated and [facility]
== END ==
PROVIDERS: PCP Family Medicine; Visit Provider Specialist
DX: F19.11 Other psychoactive substance abuse, in remission (principal); G24.01 Drug induced subacute dyskinesia; G43.909 Migraine, unspecified, not intractable, without status migrainosus; G89.29 Other chronic pain; Z86.73 Personal history of transient ischemic attack (TIA), and cerebral infarction without residual deficits
CPT/HCPCS: 70450

== ENCOUNTER 2022-02-26 12:38 | Outpatient (CLI) | payer MEDICARE, MEDICAID, SELFPAY ==
[2022-02-26 13:11] VITALS: BP 186/84; PULSE 74; RESP 16; TEMP 36.4; O2SAT 97
[2022-02-26 13:13] VITALS: RESP 16
[2022-02-26 13:30] VITALS: BP 164/82; PULSE 72; RESP 16; TEMP 36.4; O2SAT 96
== END 2022-02-26 13:30 | disposition home or self-care (01) ==
LOC: INF 12:39
PROVIDERS: PCP Family Medicine; Visit Provider Family Medicine
DX: G43.C1 Periodic headache syndromes in child or adult, intractable (principal)
CPT/HCPCS: 96372; J0595

== ENCOUNTER 2022-03-14 16:14 | Outpatient (CLI) | payer MEDICARE, MEDICAID, SELFPAY ==
[2022-03-14 16:26] VITALS: BP 196/101; PULSE 95; RESP 18; O2SAT 98
[2022-03-14 16:38] VITALS: BP 156/101; PULSE 91; RESP 18; O2SAT 95
== END 2022-03-14 16:39 | disposition home or self-care (01) ==
LOC: INF 16:15
PROVIDERS: PCP Family Medicine; Visit Provider Family Medicine
DX: G43.C1 Periodic headache syndromes in child or adult, intractable (principal)
CPT/HCPCS: 96372; J0595

== ENCOUNTER 2022-03-31 15:49 | Emergency (ER) | payer MEDICARE, MEDICAID, SELFPAY ==
[2022-03-31 15:51] VITALS: BP 120/89; PULSE 72; RESP 17; TEMP 36.9; O2SAT 98
--- NOTE | 2022-03-31 15:51 | CT_ITS ---
PROCEDURE INFORMATION: Exam: CT Head Without Contrast Exam date and time: 03/31/2022 3:58 PM Age: 57 years old Clinical indication: Pain; Headache not specified; Prior surgery; Surgery date: 6+ months; Surgery type: Brain meningioma removed per patient. TECHNIQUE: Imaging protocol: Computed tomography of the head without contrast. Radiation optimization: All CT scans at this facility use at least one of these dose optimization techniques: automated exposure control; mA and/or kV adjustment per patient size (includes targeted exams where dose is matched to clinical indication); or iterative reconstruction. COMPARISON: CT HEAD/BRAIN WO CON 02/20/2022 1:02 PM FINDINGS: Brain: Prominent sulci. Patchy hypodensity of the cerebral white matter which are nonspecific but likely secondary to microangiopathic changes. Left temporoparietal and right cerebellar encephalomalacia. Cerebral ventricles: There has been no significant change since previous exam. The ventricles are prominent secondary to diffuse volume loss/atrophy. Paranasal sinuses: Visualized sinuses are unremarkable. No fluid levels. Mastoid air cells: Visualized mastoid air cells are well aerated. Bones/joints: Remote left sided craniotomy defects. Soft tissues: Unremarkable. IMPRESSION: Left temporoparietal and right cerebellar encephalomalacia and chronic age related and remote postsurgical changes but no evidence of acute intracranial pathology.
--- NOTE | 2022-03-31 15:53 | HMH.EDGENADL ---
Discharge Plan Disposition Patient Disposition: Home, Self-Care Condition: Fair Prescriptions Prescriptions: New aspirin 325 mg tablet 325 mg PO DAILY Qty: 30 0RF No Action lisinopril 5 mg tablet 5 mg PO DAILY trazodone 150 mg tablet 225 mg PO HS Label Comments: atorvastatin 80 mg tablet 80 mg PO HS 30 Days Qty: 30 0RF Aimovig Autoinjector 140 mg/mL auto-injector 140 mg SQ QMONTH Qty: 1 4RF Rx Instructions: Inject monthly as directed for Migraine Headache. tizanidine 4 MG tablet 4 mg PO TIDP PRN (Reason: Muscle Spasm) omeprazole 40 MG capsule,delayed release(DR/EC) 40 mg PO DAILY furosemide 20 MG tablet 20 mg PO DAILY metformin 500 MG tablet extended release 24 hr 1,000 mg PO DAILY desvenlafaxine succinate 100 MG tablet extended release 24 hr 100 mg PO DAILY cholecalciferol (vitamin D3) 125 MCG capsule 5,000 unit PO DAILY nitrofurantoin macrocrystal 100 MG capsule 100 mg PO BID hydroxyzine HCl 25 MG tablet 25 mg PO TIDP PRN (Reason: Anxiety) Qty: 20 0RF rimegepant 75 MG tablet,disintegrating 75 mg PO DAILYP PRN (Reason: Migraine Headache) pregabalin 200 MG capsule 200 mg PO TID Referrals Follow up/Referrals: Provider,Referral, MD [Primary Care Provider] - See instructions Activity Restrictions/Add. Instructions Additional Instructions/Restrictions: You have been evaluated for headache. Please continue to monitor your symptoms closely. Follow-up with your primary care doctor and your primary neurologist at next available. Return to the emergency department at once for any new or worsening symptoms, headache, neck pain, fever, other concerns. Clinical Impressions Clinical Impression: Migraine Instructions Patient Instructions: DI for Migraine Discharge ED Provider: Jennyfer Fishman Adult HPI General Chief complaint: Neuro Symptoms/Deficit Stated complaint: Weakness Time Seen by Provider: 03/31/22 15:53 Mode of Arrival: Ambulatory Source of Information: Patient Limitations: No Limitations History of Present Illness HPI narrative: 57-year-old female presenting to the emergency department with headache, speech difficulty, generalized malaise. Symptoms started this morning. When she woke up she had a dull, throbbing headache that is located on the right side of the head. Similar location as her migraines. It has persisted throughout the day. She does not have medication at home to take. 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 When she gets migraines, usually goes to her PCP who provides Stadol and Phenergan. Her speech seems somewhat off today. She has had strokes in the past and her speech has not been normal since then. Denies difficulty thinking of words. Difficulty is with getting them out, they sound somewhat slurred. She denies any vision changes. No numbness, weakness, tingling in her arms or legs. No recent illness, fevers, chills, nausea, vomiting. She does not take aspirin or Plavix. Difficult to assess last known well, since her speech has been bad for quite some time. Last known well from headache was yesterday before bed Related Data Home Medications Medication Instructions Recorded Confirmed pregabalin 200 mg capsule 200 mg PO TID Pain 06/09/21 02/27/22 rimegepant 75 mg disintegrating 75 mg PO DAILYP PRN Migraine 06/09/21 02/27/22 tablet Headache cholecalciferol (vitamin D3) 125 5,000 unit PO DAILY Supplement 12/07/21 02/27/22 mcg (5,000 unit) capsule desvenlafaxine succinate 100 mg 100 mg PO DAILY MOOD 12/07/21 02/27/22 tablet,extended release 24 hr furosemide 20 mg tablet 20 mg PO DAILY Fluid 12/07/21 02/27/22 metformin 500 mg tablet,extended 1,000 mg PO DAILY Diabetes 12/07/21 02/27/22 release 24 hr omeprazole 40 mg capsule,delayed 40 mg PO DAILY GERD 12/07/21 02/27/22 release tizanidine 4 mg tablet 4 mg PO TIDP PRN Muscle Spasm 12/07/21 02/27/22 n
--- NOTE | 2022-03-31 16:00 | PC.NURSE ---
PT to RAD
--- NOTE | 2022-03-31 16:02 | PC.NURSE ---
pt to ct
[2022-03-31 16:38] LABS: Coronavirus 19, PCR Not Detected (NotDetected); Influenza A, PCR Not Detected (NotDetected); Influenza B, PCR Not Detected (NotDetected)
[2022-03-31 16:38] LABS: Basophils # 0.2 K/mm3 (0-0.2); Basophils % 1.7 % (0.1-2.0); Eosinophils # 0.1 K/mm3 (0.0-0.4); Eosinophils % 1.3 % (0.1-12.0); Hematocrit 44.3 % (37.0-47.0); Hemoglobin 14.2 g/dL (12.2-16.2); Lymphocytes # 3.9 K/mm3 (0.7-4.5); Lymphocytes % 39.6 % (10-50); Mean Corpuscular HGB Conc 32.2 g/dL (31.8-35.4); Mean Corpuscular Hemoglobin 30.4 pg (27.0-31.2); Mean Corpuscular Volume 94.4 fl (81-99); Mean Platelet Volume 7.9 fl (7.4-10.4); Monocytes # 0.4 K/mm3 (0.1-1.0); Monocytes % 4.2 % (1.7-9.3); Neutrophils # 5.2 K/mm3 (1.8-7.8); Neutrophils % 53.3 % (37.0-80.0); Platelet Count 239 K/mm3 (142-424); Red Blood Count 4.69 M/mm3 (4.20-5.40); Red Cell Distribution Width 12.2 % (11.5-17.5); White Blood Count 9.8 K/mm3 (4.8-10.8)
[2022-03-31 16:55] VITALS: BP 117/74; PULSE 72; RESP 16; O2SAT 99
--- NOTE | 2022-03-31 17:02 | PC.NURSE ---
lab in room for recollect
[2022-03-31 17:24] LABS: Chloride 104 mmol/L (98-107); Potassium 4.8 mmoL/L (3.5-5.1); Sodium 139 mmol/L (136-145)
[2022-03-31 17:27] LABS: Alanine Aminotransferase 26 U/L (12-78); Albumin Level 3.8 g/dl (3.5-5.0); Albumin/Globulin Ratio 1.5 (1.1-1.8); Alkaline Phosphatase 108 U/L (38-126); Anion Gap 11.8 mEq/L (5-15); Aspartate Amino Transferase 29 U/L (14-36); Bilirubin,Total < 0.1 mg/dl (0.2-1.3); Blood Urea Nitrogen 21 mg/dl (7-17); Carbon Dioxide 28 mmol/L (22.0-30.0); Creatinine Clearance Estimated 67 mL/min (50-200); Estimated Glomerular Filt Rate 73 ml/min (>60); GFR (African American) 89 ML/MIN (>60); Globulin 2.6 g/dL (1.3-3.2); Total Protein,Serum 6.4 g/dl (6.3-8.2)
--- NOTE | 2022-03-31 17:27 | PC.NURSE ---
PT SITTING IN BED EATING
[2022-03-31 17:28] LABS: Calcium 8.6 mg/dl (8.4-10.2); Glucose 113 mg/dl (74-100)
[2022-03-31 17:30] VITALS: BP 158/88; PULSE 74; RESP 16; O2SAT 98
[2022-03-31 17:33] LABS: C-Reactive Protein 3.4 mg/L (0-4)
[2022-03-31 18:30] VITALS: BP 129/77; PULSE 67; O2SAT 97
[2022-03-31 19:35] VITALS: BP 126/80; PULSE 78; RESP 18; TEMP 36.6; O2SAT 97
--- NOTE | 2022-03-31 19:45 | PC.NURSE ---
pt's friend is on her way to order picker pt
== END 2022-03-31 19:50 | disposition home or self-care (01) ==
PROVIDERS: Emergency Provider Emergency Medicine
DX: G43.909 Migraine, unspecified, not intractable, without status migrainosus (principal); Z79.84 Long term (current) use of oral hypoglycemic drugs; Z79.899 Other long term (current) drug therapy; Z88.1 Allergy status to other antibiotic agents; Z88.0 Allergy status to penicillin; Z88.2 Allergy status to sulfonamides; Z88.8 Allergy status to other drugs, medicaments and biological substances; F39 Unspecified mood [affective] disorder; E11.9 Type 2 diabetes mellitus without complications; K21.9 Gastro-esophageal reflux disease without esophagitis; G47.00 Insomnia, unspecified; Z72.0 Tobacco use
CPT/HCPCS: 36415; 70450; 80053; 85025; 86140; 96372; 99284; C9803; U0003; U0005

== ENCOUNTER 2022-04-12 08:37 | Outpatient (CLI) | payer MEDICARE, MEDICAID, SELFPAY ==
--- NOTE | 2022-04-12 08:42 | MR_ITS ---
FINAL REPORT CLINICAL HISTORY: AMS, HX OF MENINGIOMA OF THE BRAIN 12 ML PROHANCE GIVEN COMPARISON: August 2020 FINDINGS: Multiplanar MR imaging of the brain was performed without and with contrast. The midline structures appear intact. There is localized encephalomalacia in the left parietal lobe with surrounding gliosis. There is a large area of encephalomalacia in the inferior right cerebellar region, similar to prior. There is no acute hemorrhage or mass. No abnormal extra-axial fluid collection is seen. The ventricular size is within normal limits. There is no evidence of shift of the midline structures. No area of abnormal restricted diffusion is identified. No abnormal contrast enhancement is seen. Normal major vessel vascular flow voids are noted. IMPRESSION: 2 areas of encephalomalacia. Left parietal lobe with surrounding gliosis and inferior right cerebellar region. All stable. No acute intracranial abnormality identified. Reviewed, Interpreted and Dictated by Francisco Fong MD Transcribed by Lan Carlson Authenticated and [facility]
--- NOTE | 2022-04-12 12:43 | PC.NURSE ---
1243-pt c/o headache 03/30
[2022-04-12 13:00] VITALS: BP 179/85; PULSE 65; RESP 18; O2SAT 96
--- NOTE | 2022-04-12 13:00 | PC.NURSE ---
1300-pt states her pain 02/27 and is ready to be d/c home with her friend.
== END 2022-04-12 13:00 | disposition home or self-care (01) ==
LOC: RAD 12:30 → INF 15:13
PROVIDERS: PCP Family Medicine; Visit Provider Family Medicine
DX: G43.C1 Periodic headache syndromes in child or adult, intractable (principal); R41.82 Altered mental status, unspecified; Z86.011 Personal history of benign neoplasm of the brain
CPT/HCPCS: 70553; 96372; A9576; J0595

== ENCOUNTER 2022-04-26 12:17 | Outpatient (CLI) | payer MEDICARE, MEDICAID, SELFPAY ==
[2022-04-26 13:00] VITALS: BP 149/106; PULSE 78; RESP 18; O2SAT 96
== END 2022-04-26 13:00 | disposition home or self-care (01) ==
PROVIDERS: PCP Family Medicine; Visit Provider Family Medicine
DX: G43.C1 Periodic headache syndromes in child or adult, intractable (principal)
CPT/HCPCS: 96372; J0595

== ENCOUNTER 2022-05-16 15:47 | Outpatient (CLI) | payer MEDICARE, MEDICAID, SELFPAY ==
[2022-05-16 16:02] VITALS: BP 128/90; PULSE 78; RESP 18; TEMP 36.7; O2SAT 97
== END 2022-05-16 16:33 | disposition home or self-care (01) ==
LOC: INF 15:48
PROVIDERS: PCP Family Medicine; Visit Provider Family Medicine
DX: G43.C1 Periodic headache syndromes in child or adult, intractable (principal)
CPT/HCPCS: 96372; J0595

== ENCOUNTER 2022-05-30 11:17 | Outpatient (CLI) | payer MEDICARE, MEDICAID, SELFPAY ==
[2022-05-30 11:55] VITALS: BP 149/78; PULSE 77; RESP 18; O2SAT 98
[2022-05-30 12:25] VITALS: BP 147/74; PULSE 76; RESP 16
== END 2022-05-30 12:45 | disposition home or self-care (01) ==
LOC: INF 11:19
PROVIDERS: PCP Family Medicine; Visit Provider Family Medicine
DX: G43.C1 Periodic headache syndromes in child or adult, intractable (principal)
CPT/HCPCS: 96372; J0595

== ENCOUNTER 2022-07-24 10:19 | Emergency (ER) | payer MEDICARE, MEDICAID, SELFPAY ==
[2022-07-24] VITALS (8 sets, daily range): BP systolic 136–189; BP diastolic 78–109; PULSE 81–95; RESP 18–20; TEMP 36.8; O2SAT 97–99; BMI 22.6
--- NOTE | 2022-07-24 10:29 | CT_ITS ---
PROCEDURE INFORMATION: Exam: CT Head Without Contrast Exam date and time: 07/24/2022 10:35 AM Age: 57 years old Clinical indication: Pain; Headache; Migraine; Additional info: H/o brain tumor, worsening migraines x 1 month TECHNIQUE: Imaging protocol: Computed tomography of the head without contrast. Radiation optimization: All CT scans at this facility use at least one of these dose optimization techniques: automated exposure control; mA and/or kV adjustment per patient size (includes targeted exams where dose is matched to clinical indication); or iterative reconstruction. COMPARISON: MR HEAD/BRAIN WO/W CON 04/12/2022 9:19 AM FINDINGS: Brain: Prominent sulci. Patchy hypodensity of the cerebral white matter which are nonspecific but likely secondary to microangiopathic changes. Remote right cerebellar infarct. Cerebral ventricles: The ventricles are prominent secondary to diffuse volume loss/atrophy. Paranasal sinuses: Visualized sinuses are unremarkable. No fluid levels. Mastoid air cells: Visualized mastoid air cells are well aerated. Bones/joints: Evident of prior left calvarial surgery. Soft tissues: Unremarkable. IMPRESSION: Chronic age related changes but no evidence of acute intracranial pathology. Remainder of findings as described above.
[2022-07-24 10:49] LABS: Chloride 92 mmol/L (98-107)
[2022-07-24 10:50] LABS: Potassium 3.7 mmoL/L (3.5-5.1); Sodium 131 mmol/L (136-145)
--- NOTE | 2022-07-24 10:51 | PC.NURSE ---
pt return from radiology roberto corley at the bedside for u/s IV
[2022-07-24 10:52] LABS: Alanine Aminotransferase 47 U/L (12-78); Alkaline Phosphatase 148 U/L (38-126); Aspartate Amino Transferase 44 U/L (14-36); Basophils # 0.2 K/mm3 (0-0.2); Basophils % 2.9 % (0.1-2.0); Bilirubin,Total 0.7 mg/dl (0.2-1.3); Blood Urea Nitrogen 18 mg/dl (7-17); Creatinine Clearance Estimated 47 mL/min (50-200); Eosinophils # 0.1 K/mm3 (0.0-0.4); Eosinophils % 1.8 % (0.1-12.0); Estimated Glomerular Filt Rate 51 ml/min (>60); GFR (African American) 62 ML/MIN (>60); Hematocrit 48.3 % (37.0-47.0); Hemoglobin 16.8 g/dL (12.2-16.2); Lymphocytes # 1.8 K/mm3 (0.7-4.5); Lymphocytes % 23.8 % (10-50); Mean Corpuscular HGB Conc 34.9 g/dL (31.8-35.4); Mean Corpuscular Hemoglobin 30.5 pg (27.0-31.2); Mean Corpuscular Volume 87.5 fl (81-99); Mean Platelet Volume 8.4 fl (7.4-10.4); Monocytes # 0.4 K/mm3 (0.1-1.0); Monocytes % 4.6 % (1.7-9.3); Neutrophils # 5.1 K/mm3 (1.8-7.8); Platelet Count 182 K/mm3 (142-424); Red Blood Count 5.52 M/mm3 (4.20-5.40); Red Cell Distribution Width 11.9 % (11.5-17.5); White Blood Count 7.6 K/mm3 (4.8-10.8)
[2022-07-24 10:53] LABS: Albumin Level 4.2 g/dl (3.5-5.0); Albumin/Globulin Ratio 1.4 (1.1-1.8); Anion Gap 12.7 mEq/L (5-15); Calcium 9.6 mg/dl (8.4-10.2); Carbon Dioxide 30 mmol/L (22.0-30.0); Globulin 2.9 g/dL (1.3-3.2); Glucose 353 mg/dl (74-100); Total Protein,Serum 7.1 g/dl (6.3-8.2)
--- NOTE | 2022-07-24 11:32 | HMH.EDGENADL ---
Discharge Plan Disposition Patient Disposition: Home, Self-Care Condition: Good Prescriptions Prescriptions: No Action lisinopril 5 mg tablet 5 mg PO DAILY trazodone 150 mg tablet 225 mg PO HS Label Comments: Novolin 70-30 FlexPen U-100 100 unit/mL (70-30) insulin pen 25 unit SQ BID gabapentin 800 mg tablet 800 mg PO atorvastatin 80 mg tablet 80 mg PO HS 30 Days Qty: 30 0RF Qulipta 60 mg tablet 60 mg PO DAILY Qty: 30 2RF Rx Instructions: 60 mg po qd Ingrezza Initiation Pack 40 mg (7)- 80 mg (21) capsule,dose pack See Rx Instructions PO PER PKG DIR Qty: 28 0RF Rx Instructions: PO PER PKG DIR tizanidine 4 MG tablet 4 mg PO TIDP PRN (Reason: Muscle Spasm) omeprazole 40 MG capsule,delayed release(DR/EC) 40 mg PO DAILY furosemide 20 MG tablet 20 mg PO DAILY metformin 500 MG tablet extended release 24 hr 1,000 mg PO DAILY desvenlafaxine succinate 100 MG tablet extended release 24 hr 100 mg PO DAILY hydroxyzine HCl 25 MG tablet 25 mg PO TIDP PRN (Reason: Anxiety) Qty: 20 0RF aspirin 325 mg tablet 325 mg PO DAILY benztropine 1 mg tablet 1 mg PO BID rimegepant 75 MG tablet,disintegrating 75 mg PO DAILYP PRN (Reason: Migraine Headache) pregabalin 200 MG capsule 200 mg PO TID Activity Restrictions/Add. Instructions Additional Instructions/Restrictions: You were evaluated in the emergency department today for headache. Please follow-up with your primary care provider over the next 48 hours. Continue taking your medications at home as prescribed. Return to the emergency department for new or worsening symptoms. Clinical Impressions Clinical Impression: Migraine Qualifiers: Migraine type: chronic without aura Status migrainosus presence: without status migrainosus Intractability: not intractable Qualified Code(s): G43.709 - Chronic migraine without aura, not intractable, without status migrainosus Instructions Patient Instructions: Migraine -- Adult Discharge ED Provider: Alexandria Mullins General Adult HPI General Chief complaint: Weakness Stated complaint: migraine Time Seen by Provider: 07/24/22 10:22 Mode of Arrival: Ambulatory Source of Information: Patient Limitations: No Limitations Description of Symptoms (Recalled from ER Triage Doc. by RN): pt to ed c/o diarrhea since the beginning of july and a headache. pt reports generalized weakness. no other complaints of pain. History of Present Illness HPI narrative: This patient is a 57-year-old female with a history of migraines, CVA, type 2 diabetes, hypertension, and meningioma status postresection presenting to the emergency department for evaluation with concern for headache. She states that she has had headaches daily for the past month. She states that it feels similar to her typical migraines, however it is much worse and nothing that she takes at home gets it to go away. She also complains that she has been gagging when she tries to take her medications. She denies any other concerns at this time. She denies any new numbness, tingling, unilateral weakness, or other concerns, but she does report that she has visual disturbances consisting of photophobia and difficulty opening her eyes when her head hurts this bad. She also complains of some diarrhea, but she denies any blood in her stools, dark tarry stools, or abdominal pain. Related Data Home Medications Medication Instructions Recorded Confirmed pregabalin 200 mg capsule 200 mg PO TID Pain 06/09/21 06/17/22 rimegepant 75 mg disintegrating 75 mg PO DAILYP PRN Migraine 06/09/21 06/17/22 tablet Headache desvenlafaxine succinate 100 mg 100 mg PO DAILY MOOD 12/07/21 06/17/22 tablet,extended release 24 hr furosemide 20 mg tablet 20 mg PO DAILY Fluid 12/07/21 06/17/22 metformin 500 mg tablet,extended 1,000 mg PO DAILY Diabetes 12/07/21 06/17/22 release 24 hr omeprazol
[2022-07-24 12:47] LABS: Microscopic, Urine URINE MICROSCOPIC (MICROSCOPIC)
[2022-07-24 12:54] LABS: Appearance,Urine CLEAR (Clear); Blood, Urine TRACE-I (Negative); Color,Urine YELLOW (Yellow); Glucose,Urine (UA) 3+ (Negative); Ketones,Urine 1+ (Negative); Leukocyte Esterase,Urine Negative (Negative); Nitrate,Urine Negative (Negative); Protein,Urine 1+ (Negative); Specific Gravity, Urine 1.025 (1.005-1.030); Urobilinogen,Urine 0.2 EU/dl (0.2)
[2022-07-24 12:57] LABS: Bilirubin,Urine Negative (Negative)
[2022-07-24 13:13] LABS: Bacteria,Urine Trace /lpf; RBC,Urine Occasional #/hpf (0-3); WBC,Urine Occasional #/hpf (0-3)
--- NOTE | 2022-07-24 13:52 | PC.NURSE ---
LB Mathis rounding on patient, she is requesting something for her HERNANDEZ. SARAHY Clements is aware
== END 2022-07-24 14:37 | disposition home or self-care (01) ==
PROVIDERS: Emergency Provider Emergency Medicine; PCP Family Medicine
DX: G43.709 Chronic migraine without aura, not intractable, without status migrainosus (principal); I10 Essential (primary) hypertension; E11.9 Type 2 diabetes mellitus without complications; Z86.73 Personal history of transient ischemic attack (TIA), and cerebral infarction without residual deficits; D32.9 Benign neoplasm of meninges, unspecified; F41.9 Anxiety disorder, unspecified; F32.A Depression, unspecified; Z86.718 Personal history of other venous thrombosis and embolism; E78.5 Hyperlipidemia, unspecified; E03.9 Hypothyroidism, unspecified; Z87.440 Personal history of urinary (tract) infections; F17.210 Nicotine dependence, cigarettes, uncomplicated
CPT/HCPCS: 70450; 80053; 81001; 85025; 96361; 96374; 96375; 99285; J0595

== ENCOUNTER 2022-07-30 11:50 | Outpatient (CLI) | payer MEDICARE, MEDICAID, SELFPAY ==
[2022-07-30 12:18] VITALS: BP 170/101; PULSE 83; RESP 16; TEMP 36.2; O2SAT 98
[2022-07-30 12:55] VITALS: BP 169/87; PULSE 80; RESP 14; O2SAT 97
== END 2022-07-30 12:55 | disposition home or self-care (01) ==
LOC: INF 11:52
PROVIDERS: PCP Family Medicine; Visit Provider Family Medicine
DX: G43.C1 Periodic headache syndromes in child or adult, intractable (principal)
CPT/HCPCS: 96372; J0595

== ENCOUNTER 2022-08-13 14:48 | Outpatient (CLI) | payer MEDICARE, MEDICAID, SELFPAY ==
[2022-08-13 15:20] VITALS: BP 155/105; PULSE 88; RESP 18; O2SAT 97
== END 2022-08-13 15:20 | disposition home or self-care (01) ==
LOC: INF 14:48
PROVIDERS: PCP Family Medicine; Visit Provider Family Medicine
DX: G43.C1 Periodic headache syndromes in child or adult, intractable (principal)
CPT/HCPCS: 96372; J0595

== ENCOUNTER 2022-08-29 11:15 | Outpatient (CLI) | payer MEDICARE, MEDICAID, SELFPAY ==
[2022-08-29 11:50] VITALS: BP 193/88; PULSE 74; RESP 16; O2SAT 98
[2022-08-29 12:15] VITALS: BP 161/78; PULSE 64; RESP 16
== END 2022-08-29 12:20 | disposition home or self-care (01) ==
LOC: INF 11:16
PROVIDERS: PCP Family Medicine; Visit Provider Family Medicine
DX: G43.C1 Periodic headache syndromes in child or adult, intractable (principal)
CPT/HCPCS: 96372; J0595

== ENCOUNTER 2022-09-12 11:37 | Outpatient (CLI) | payer MEDICARE, MEDICAID, SELFPAY ==
[2022-09-12 11:37] VITALS: BP 158/99; PULSE 99; RESP 20; TEMP 36.9; O2SAT 95
[2022-09-12 12:20] VITALS: BP 158/85; PULSE 99; RESP 20; TEMP 36.9; O2SAT 95
== END 2022-09-12 12:15 | disposition home or self-care (01) ==
LOC: INF 11:38
PROVIDERS: PCP Family Medicine; Visit Provider Family Medicine
DX: G43.C1 Periodic headache syndromes in child or adult, intractable (principal)
CPT/HCPCS: 96372; J0595

== ENCOUNTER 2022-10-01 10:31 | Outpatient (CLI) | payer MEDICARE, MEDICAID, SELFPAY ==
[2022-10-01 10:50] VITALS: BP 190/125; PULSE 60; RESP 19; O2SAT 98
[2022-10-01 11:20] VITALS: BP 115/93; PULSE 68; RESP 19
== END 2022-10-01 11:20 | disposition home or self-care (01) ==
LOC: INF 10:32
PROVIDERS: PCP Family Medicine; Visit Provider Family Medicine
DX: G43.C1 Periodic headache syndromes in child or adult, intractable (principal)
CPT/HCPCS: 96372; J0595

== ENCOUNTER 2022-10-15 11:52 | Outpatient (CLI) | payer MEDICARE, MEDICAID, SELFPAY ==
[2022-10-15 12:13] VITALS: BP 157/93; PULSE 73; RESP 20; TEMP 36.4; O2SAT 97
[2022-10-15 12:45] VITALS: BP 151/90; PULSE 76; RESP 16; O2SAT 96
== END 2022-10-15 12:45 | disposition home or self-care (01) ==
LOC: INF 11:54
PROVIDERS: PCP Family Medicine; Visit Provider Family Medicine
DX: G43.C1 Periodic headache syndromes in child or adult, intractable (principal)
CPT/HCPCS: 96372; J0595

== ENCOUNTER 2022-10-29 12:16 | Outpatient (CLI) | payer MEDICARE, MEDICAID, SELFPAY ==
[2022-10-29 12:48] VITALS: BP 137/83; PULSE 86; RESP 18; O2SAT 96
--- NOTE | 2022-10-29 13:10 | PC.NURSE ---
1310-notified sreekanth in 's office that pt's pain level is uncontrolled from dose;states she will let know and call me back
--- NOTE | 2022-10-29 13:30 | PC.NURSE ---
2356-spoke with sreekanth with ; no new orders today;pt needs to go home and rest.
[2022-10-29 13:39] VITALS: BP 153/89; PULSE 86; RESP 18; O2SAT 99
== END 2022-10-29 13:39 | disposition home or self-care (01) ==
LOC: INF 12:17
PROVIDERS: PCP Family Medicine; Visit Provider Family Medicine
DX: G43.C1 Periodic headache syndromes in child or adult, intractable (principal)
CPT/HCPCS: 96372; J0595

== ENCOUNTER 2022-11-12 14:42 | Outpatient (CLI) | payer MEDICARE, MEDICAID, SELFPAY ==
[2022-11-12 14:57] VITALS: BP 119/76; PULSE 88; RESP 18; TEMP 36.7; O2SAT 96
--- NOTE | 2022-11-12 15:37 | PC.NURSE ---
multiple phone call attempts made to pt's friend shala with no response. awaiting pt ride home.
== END 2022-11-12 15:58 | disposition home or self-care (01) ==
PROVIDERS: PCP Family Medicine; Visit Provider Family Medicine
DX: G43.C1 Periodic headache syndromes in child or adult, intractable (principal)
CPT/HCPCS: 96372; J0595

== ENCOUNTER 2022-11-26 11:51 | Outpatient (CLI) | payer MEDICARE, MEDICAID, SELFPAY ==
[2022-11-26 13:05] VITALS: BP 180/91; PULSE 74; RESP 18; O2SAT 96
== END 2022-11-26 13:05 | disposition home or self-care (01) ==
LOC: INF 11:52
PROVIDERS: PCP Family Medicine; Visit Provider Family Medicine
DX: G43.C1 Periodic headache syndromes in child or adult, intractable (principal)
CPT/HCPCS: 96372; J0595

== ENCOUNTER → 2022-12-03 12:44 | Outpatient (CLI) | payer MEDICARE, MEDICAID, SELFPAY ==
[2022-12-03 14:06] LABS: Hemoglobin A1C 8.5 % (4.0-6.0)
[2022-12-03 14:16] LABS: Alanine Aminotransferase 23 U/L (12-78); Albumin/Globulin Ratio 1.7 (1.1-1.8); Alkaline Phosphatase 81 U/L (38-126); Anion Gap 15.2 mEq/L (5-15); Aspartate Amino Transferase 26 U/L (14-36); Bilirubin,Total 0.4 mg/dl (0.2-1.3); Blood Urea Nitrogen 17 mg/dl (7-17); Calcium 9.8 mg/dl (8.4-10.2); Carbon Dioxide 28 mmol/L (22.0-30.0); Chloride 100 mmol/L (98-107); Chol/HDL Ratio 1.9 (1-3.5); Cholesterol 146 mg/dl (140-200); Estimated Glomerular Filt Rate 64 ml/min (>60); GFR (African American) 78 ML/MIN (>60); Globulin 2.4 g/dL (1.3-3.2); HDL Cholesterol 75 mg/dl (40-60); Potassium 4.2 mmoL/L (3.5-5.1); Sodium 139 mmol/L (136-145); Total Protein,Serum 6.4 g/dl (6.3-8.2); Triglycerides 120 mg/dl (30-150); VLDL Cholesterol 24 mg/dL (0-40)
[2022-12-03 14:27] LABS: Direct LDL Cholesterol 54.99 mg/dL (100-129)
[2022-12-03 18:04] LABS: Glucose 35 mg/dl (74-100)
== END ==
PROVIDERS: PCP Family Medicine; Visit Provider Family Medicine
DX: E11.42 Type 2 diabetes mellitus with diabetic polyneuropathy (principal); I10 Essential (primary) hypertension; Z79.4 Long term (current) use of insulin
CPT/HCPCS: 36415; 80053; 80061; 82565; 83036; 84520

== ENCOUNTER 2022-12-10 15:01 | Outpatient (CLI) | payer MEDICARE, MEDICAID, SELFPAY ==
--- NOTE | 2022-12-10 15:28 | PC.NURSE ---
1528-pt states headache is 8/10 today.
[2022-12-10 15:50] VITALS: BP 155/92; PULSE 87; RESP 18; O2SAT 96
== END 2022-12-10 15:50 | disposition home or self-care (01) ==
LOC: INF 15:01
PROVIDERS: PCP Family Medicine; Visit Provider Family Medicine
DX: G43.C1 Periodic headache syndromes in child or adult, intractable (principal)
CPT/HCPCS: 96372

== ENCOUNTER 2023-01-02 16:15 | Outpatient (CLI) | payer MEDICARE, MEDICAID, SELFPAY ==
[2023-01-02 16:30] VITALS: BP 153/98; PULSE 87; RESP 18; O2SAT 97
[2023-01-02 16:50] VITALS: BP 131/94; PULSE 87; RESP 18; O2SAT 97
== END 2023-01-02 16:58 | disposition home or self-care (01) ==
LOC: INF 16:17
PROVIDERS: PCP Family Medicine; Visit Provider Family Medicine
DX: R51.9 Headache, unspecified (principal)
CPT/HCPCS: 96372

== ENCOUNTER 2023-01-16 11:29 | Outpatient (CLI) | payer MEDICARE, MEDICAID, SELFPAY ==
[2023-01-16 12:08] VITALS: BP 185/95; PULSE 78; RESP 20; TEMP 36.9; O2SAT 98
[2023-01-16 12:43] VITALS: BP 188/97; PULSE 76; RESP 17; O2SAT 98
[2023-01-16 13:09] VITALS: BP 188/95; PULSE 74; RESP 17; O2SAT 98
== END 2023-01-16 13:12 | disposition home or self-care (01) ==
LOC: INF 11:31
PROVIDERS: PCP Family Medicine; Visit Provider Family Medicine
DX: G43.C1 Periodic headache syndromes in child or adult, intractable (principal)
CPT/HCPCS: 96372

== ENCOUNTER 2023-02-06 12:44 | Outpatient (CLI) | payer MEDICARE, MEDICAID, SELFPAY ==
[2023-02-06 13:40] VITALS: BP 181/82; PULSE 79; RESP 18; O2SAT 100
--- NOTE | 2023-02-06 13:40 | PC.NURSE ---
1340-gave pt stadol 3mg and phenergan 50mg im in left hip in divided doses; will reassess pt pain level in 30mins; pt current pain level 9/10
[2023-02-06 14:20] VITALS: BP 168/84; PULSE 86; RESP 18; O2SAT 94
--- NOTE | 2023-02-06 14:20 | PC.NURSE ---
1420-pt states pain level is unchanged from 03/30; gave pt last 1 mg of stadol im in left hip
[2023-02-06 15:00] VITALS: BP 166/85; PULSE 73; RESP 18; O2SAT 93
--- NOTE | 2023-02-06 16:20 | PC.NURSE ---
1620-called and checked on transport; eta approx 20 mins
--- NOTE | 2023-02-06 16:32 | PC.NURSE ---
1500-pt states pain is better at 8/10;called transport
[2023-02-06 16:37] VITALS: BP 158/86; PULSE 78; RESP 18; O2SAT 97
== END 2023-02-06 16:37 | disposition home or self-care (01) ==
LOC: INF 12:46
PROVIDERS: PCP Family Medicine; Visit Provider Family Medicine
DX: G43.C1 Periodic headache syndromes in child or adult, intractable (principal)
CPT/HCPCS: 96372

== ENCOUNTER 2023-02-27 12:22 | Outpatient (CLI) | payer MEDICARE, MEDICAID, SELFPAY ==
[2023-02-27 12:50] VITALS: BP 173/94; PULSE 78; RESP 18; O2SAT 98
[2023-02-27 13:20] VITALS: BP 189/92; PULSE 70; RESP 18
[2023-02-27 14:00] VITALS: BP 160/79; PULSE 73; RESP 18; O2SAT 97
--- NOTE | 2023-02-27 14:05 | PC.NURSE ---
1400-when pt d/c home pain level 01/27
== END 2023-02-27 14:00 | disposition home or self-care (01) ==
PROVIDERS: PCP Family Medicine; Visit Provider Family Medicine
DX: G43.C1 Periodic headache syndromes in child or adult, intractable (principal)
CPT/HCPCS: 96372

== ENCOUNTER 2023-03-20 12:29 | Outpatient (CLI) | payer MEDICARE, MEDICAID, SELFPAY ==
[2023-03-20] MEDS: PROMETHAZINE HCL 25MG/ML 1ML VIAL 50 MG (13:05)
[2023-03-20 13:06] VITALS: BP 173/90; PULSE 88; RESP 17; O2SAT 97
[2023-03-20] MEDS: BUTORPHANOL TARTRATE 1 MG/ML VIAL (13:06)
[2023-03-20] MEDS: BUTORPHANOL TARTRATE 1 MG/ML VIAL 2 MG (13:08)
[2023-03-20 13:35] VITALS: BP 139/82; PULSE 80; RESP 16; O2SAT 97
== END 2023-03-20 14:00 | disposition home or self-care (01) ==
LOC: INF 12:30
PROVIDERS: PCP Family Medicine; Visit Provider Family Medicine
DX: G43.C1 Periodic headache syndromes in child or adult, intractable (principal)
CPT/HCPCS: 96372; J0595

== ENCOUNTER 2023-04-15 10:24 | Outpatient (CLI) | payer MEDICARE, MEDICAID, SELFPAY ==
[2023-04-15 10:55] VITALS: BP 198/103; PULSE 75; RESP 20; TEMP 36.9; O2SAT 100
[2023-04-15 11:35] VITALS: BP 147/86; PULSE 86; RESP 20; TEMP 36.7; O2SAT 95
--- NOTE | 2023-04-15 11:43 | PC.NURSE ---
PT ARRIVED FROM MD OFFICE WITH HEADACHE AND ORDER FOR PAIN MEDS; ORDER WAS WRITTEN FOR 4 MG STADOL AND 50 MG OF PHENERGAN. PT STATES THAT HEADACHE IS 9 ON SCALE OF 1-10. FIRST GAVE DOSE OF 2MG STADOL AND 25 MG OF PHENERGAN; ASSESSED AGAIN IN 30 MINS AND PT STATES THAT STILL SYMPTOMS WERE THERE AND RATED IT A 8. GAVE THE REST OF THE MEDICATION ON THE ORDER. VITALS WERE TAKEN AND CHARTED.
[2023-04-15 12:05] VITALS: BP 132/86; PULSE 80; RESP 20; TEMP 36.9; O2SAT 95
== END 2023-04-15 16:03 | disposition home or self-care (01) ==
LOC: INF 10:25
PROVIDERS: PCP Family Medicine; Visit Provider Family Medicine
DX: G43.C1 Periodic headache syndromes in child or adult, intractable (principal)
CPT/HCPCS: 96372

== ENCOUNTER 2023-05-08 15:18 | Outpatient (CLI) | payer MEDICARE, MEDICAID, SELFPAY ==
[2023-05-08 15:40] VITALS: BP 141/80; PULSE 86; RESP 16; O2SAT 94
[2023-05-08 16:29] VITALS: BP 155/88; PULSE 85; RESP 16
== END 2023-05-08 16:29 | disposition home or self-care (01) ==
LOC: INF 15:19
PROVIDERS: PCP Family Medicine; Visit Provider Family Medicine
DX: G43.C1 Periodic headache syndromes in child or adult, intractable (principal)
CPT/HCPCS: 96372; J0595

== ENCOUNTER 2023-05-22 10:40 | Outpatient (CLI) | payer MEDICARE, MEDICAID, SELFPAY ==
[2023-05-22 11:28] VITALS: BP 164/86; PULSE 80; RESP 14; TEMP 37; O2SAT 97
[2023-05-22 12:20] VITALS: BP 147/80; PULSE 80; RESP 15; TEMP 37; O2SAT 99
== END 2023-05-22 12:25 | disposition home or self-care (01) ==
LOC: INF 10:41
PROVIDERS: PCP Family Medicine; Visit Provider Family Medicine
DX: G43.C1 Periodic headache syndromes in child or adult, intractable (principal)
CPT/HCPCS: 96372

== ENCOUNTER 2023-06-19 15:06 | Outpatient (CLI) | payer MEDICARE, MEDICAID, SELFPAY ==
[2023-06-19 15:21] VITALS: BP 161/90; PULSE 82; RESP 18; TEMP 36.4; O2SAT 97
[2023-06-19 15:53] VITALS: BP 160/90; PULSE 78; RESP 16; O2SAT 98
[2023-06-19 16:15] VITALS: BP 154/82; PULSE 75; RESP 16; TEMP 36.4; O2SAT 97
== END 2023-06-19 16:15 | disposition home or self-care (01) ==
LOC: INF 15:07
PROVIDERS: PCP Family Medicine; Visit Provider Family Medicine
DX: G43.C1 Periodic headache syndromes in child or adult, intractable (principal)
CPT/HCPCS: 96372

== ENCOUNTER 2023-07-10 15:49 | Outpatient (CLI) | payer MEDICARE, MEDICAID, SELFPAY ==
[2023-07-10 16:00] VITALS: BP 133/75; PULSE 91; RESP 19; TEMP 36.9; O2SAT 100
[2023-07-10] MEDS: PROMETHAZINE 50 MG/ML IM (16:00)
[2023-07-10] MEDS: BUTORPHANOL TARTRATE 2 MG/ML VIAL 3 MG IM (16:00)
[2023-07-10 16:41] VITALS: BP 164/72; PULSE 94
== END 2023-07-10 16:42 | disposition home or self-care (01) ==
LOC: INF 15:51
PROVIDERS: PCP Family Medicine; Visit Provider Family Medicine
DX: G43.C1 Periodic headache syndromes in child or adult, intractable (principal)
CPT/HCPCS: 96372

== ENCOUNTER 2023-10-07 10:49 | Outpatient (CLI) | payer MEDICARE, MEDICAID, SELFPAY ==
[2023-10-07 11:20] VITALS: BP 152/78; PULSE 82; RESP 18; TEMP 36.8; O2SAT 97
[2023-10-07] MEDS: PROMETHAZINE HCL 25MG/ML 1ML VIAL 50 MG (11:20)
[2023-10-07] MEDS: BUTORPHANOL TARTRATE 2 MG/ML VIAL 4 MG (11:20)
[2023-10-07 11:56] VITALS: BP 168/82; PULSE 84
== END 2023-10-07 11:56 | disposition home or self-care (01) ==
LOC: INF 10:50
PROVIDERS: PCP Family Medicine; Visit Provider Family Medicine
DX: G43.C1 Periodic headache syndromes in child or adult, intractable (principal)
CPT/HCPCS: 96372

== ENCOUNTER 2023-11-20 11:50 | Outpatient (CLI) | payer MEDICARE, MEDICAID, SELFPAY ==
[2023-11-20] MEDS: PROMETHAZINE HCL 25MG/ML 1ML VIAL 50 MG (12:19)
[2023-11-20] MEDS: BUTORPHANOL TARTRATE 2 MG/ML VIAL 3 MG IM (12:19)
[2023-11-20 12:22] VITALS: BP 159/93; PULSE 75; RESP 18; O2SAT 99
[2023-11-20 12:45] VITALS: BP 174/95; PULSE 69; RESP 18; O2SAT 99
== END 2023-11-20 12:45 | disposition home or self-care (01) ==
LOC: INF 11:51
PROVIDERS: PCP Family Medicine; Visit Provider Family Medicine
DX: G43.C1 Periodic headache syndromes in child or adult, intractable (principal)
CPT/HCPCS: 96372

== ENCOUNTER 2023-12-11 12:07 | Outpatient (CLI) | payer MEDICARE, MEDICAID, SELFPAY ==
[2023-12-11] MEDS: BUTORPHANOL TARTRATE 2 MG/ML VIAL 4 MG (12:46)
[2023-12-11] MEDS: PROMETHAZINE HCL 25MG/ML 1ML VIAL 50 MG (12:46)
[2023-12-11 13:25] VITALS: BP 154/91; PULSE 77; RESP 18; O2SAT 97
== END 2023-12-11 13:25 | disposition home or self-care (01) ==
PROVIDERS: PCP Family Medicine; Visit Provider Family Medicine
DX: G43.C1 Periodic headache syndromes in child or adult, intractable (principal)
CPT/HCPCS: 96372

== ENCOUNTER 2024-01-15 11:45 | Outpatient (CLI) | payer MEDICARE, MEDICAID, SELFPAY ==
[2024-01-15] MEDS: BUTORPHANOL TARTRATE 2 MG/ML VIAL 3 MG IM (12:16)
[2024-01-15 12:18] VITALS: BP 146/100; PULSE 83; RESP 16; O2SAT 98
[2024-01-15] MEDS: PROMETHAZINE HCL 25MG/ML 1ML VIAL 50 MG (12:18)
[2024-01-15 12:48] VITALS: BP 143/87; PULSE 72; RESP 16; O2SAT 96
== END 2024-01-15 14:15 | disposition home or self-care (01) ==
LOC: INF 11:47
PROVIDERS: PCP Family Medicine; Visit Provider Family Medicine
DX: G43.909 Migraine, unspecified, not intractable, without status migrainosus (principal)
CPT/HCPCS: 96372; J0595; J2550

== ENCOUNTER 2024-02-12 14:59 | Outpatient (CLI) | payer MEDICARE, MEDICAID, SELFPAY ==
--- OUTSIDE RECORDS SUMMARY | 2024-02-12 15:02 | XMS_ITS | Clinical Summary ---
Author Organization [facility] Address [address] [place] [address] Phone Care Team Providers Care Clinic Physician Director Name Role Phone Gilmar COFFEY, Luigi Huitron [ ] Conditions or Problems Problem Name Problem Code Onset Date Status Entry Date Provider Comment Standard Description Annotate Fibula, right, subsequent encounter(s) , infection/in flammatory reaction due to internal fixation device T84.624D (ICD-10-CM) 09/08 Active 09/08 Jaylene Davon Infection and inflammatory reaction due to internal fixation device of right fibula, subsequent encounter Tibia, right, subsequent encounter(s) , infection/in flammatory reaction due to internal fixation device T84.622D (ICD-10-CM) 09/08 Active 09/08 Jaylene Davon Infection and inflammatory reaction due to internal fixation device of right tibia, subsequent encounter Cellulitis, foot, right [id number] (SNOMED CT) 09/08 Active 09/08 Jaylene Mays Cellulitis of lower limb Infection, local skin/subcuta neous tissue 605046825 (SNOMED CT) 09/08 Active 09/08 Jaylene Davon Localized infection of skin AND/OR subcutaneous tissue CKD III(document a or b) 158941112 (SNOMED CT) 09/08 Active 09/08 Jaylene Davon Chronic kidney disease stage 3A Acute renal failure with tubular necrosis [id number] 101 (SNOMED CT) 09/08 Active 09/08 Jaylene Davon Acute renal failure due to tubular necrosis Elevation of levels of liver transaminase levels 630628201 (SNOMED CT) 09/08 Active 09/08 Jaylene Davon Elevated level of transaminase and lactic acid dehydrogenase Alkaline phosphatase, elevated 850270958 (SNOMED CT) 09/08 Active 09/08 Jaylene Mays Alkaline phosphatase above reference range Anemia due to acute blood loss 106295561 ([facility] CT) 09/08 Active 09/08 Jaylene Mays Acute posthemorrhagic anemia Anemia in CKD D63.1 (ICD-10-CM) 09/08 Active 09/08 Jaylene Mays Anemia in chronic kidney disease DM Type II E11.9 (ICD-10-CM) 09/08 Active 09/08 Jaylene Mays Type 2 diabetes mellitus without complications Benign Essential Hypertension 83556059 ([facility] CT) 09/08 Active 09/08 Jaylene Mays Benign hypertension Medications Medication Instructions Start Date Stop Date Generic Name [facility] Provider aztreonam vaibhav judd Aztreonam 2G IV [id number] [place] 09/15 aztreonam recon binta Wolfe RN Cubicin RF (daptomycin) recon binta Cubicin 650mg IV [id number] [place] 09/15 daptomycin Kamila Wolfe RN NIFEDIPINE ER 30 MG [id number] Take 1 tablet by mouth once a day nifedipine 28215468298 Janay Manrique LISINOPRIL 40 MG TABS Take 1 tablet by mouth once a day lisinopril 51378701119 Janay Manrique QULIPTA 60 MG TABS Take 1 tablet by mouth atogepant 46422480189 Janay Manrique ACETAMINOPHEN 500 MG TABS Take 1 tablet by mouth every six hours as needed acetaminophen 05788074639 Janay Manrique insulin detemir (LEVEMIR) 100 UNIT/ML injection Inject 5 unit subcutaneously every morning as directed LEVEMIR Janay Manrique ACETAMINOPHEN 325 MG TABS Take 2 tablet by mouth every six hours as needed acetaminophen 79181021032 Janay Manrique HYDROXYZINE PAMOATE 25 MG CAPS Take 1 capsule by mouth three times a day as needed hydroxyzine pamoate 00405245769 Janay Manrique LEVETIRACETAM 500 MG TABS Take 1 tablet by mouth every twelve hours levetiracetam 07934225651 Janay Manrique ASPIRIN 325 MG TABS Take 1 tablet by mouth once a day aspirin 64362901642 Janay Manrique PEG 3350 17 GM PACK Take 17 gram by mouth once a day polyethylene glycol 3350 96455299707 Janay Manrique CYCLOBENZAPRINE HCL 5 MG TABS Take 1 tablet by mouth three times a day as needed cyclobenzaprine 69088740590 Janay Manrique ENOXAPARIN SODIUM 40 MG/0.4ML SOSY Inject 0.4 ml subcutaneously once a day as directed 11/02 enoxaparin 92294424237 Janay Manrique ATORVASTATIN CALCIUM 80 MG TABS Take 1 tablet by mouth every night atorvastatin 96858739663 Janay Manrique PROCHLORPERAZINE EDISYLATE 10 MG/2ML SOLN 2 ml every eight hours as needed prochlorperazine edisylate 84678473924 Janay Manrique INSULIN LISPRO 100 UNIT/ML SOLN Inject 2-7 unit subcutaneously four times a day as directed insulin lispro 40057231925 Janay Manrique SENNOSIDES-DOCUSAT E SODIUM 8.6-50 MG TABS Take 2 tablet by mouth twice a day as needed sennosides-docusa te sodium 53922050434 Janay Manrique PROMETHAZINE HCL 25 MG TABS Take 1 tablet by mouth every six hours as needed promethazine 35787027730 Janay Manrique Valbenazine Tosylate 80 MG capsule Take 1 capsule by mouth once a day Valbenazine Tosylate 80 MG capsule Janay Manrique TRAZODONE HCL 150 MG TABS Take 3 tablet by mouth every night trazodone 17464594105 Janay Manrique DOCUSATE SODIUM 100 MG CAPS Take 1 capsule by mouth twice a day 09/18 docusate sodium 70912840775 Janay Manrique OMEPRAZOLE 40 MG CPDR Take 1 capsule by mouth once a day omeprazole 70830901438 Janay Burton CETIRIZINE HCL 10 MG TABS Take 1 tablet by mouth once a day cetirizine 65904280915 Janay Manrique MELATONIN 5 MG TABS Take 1 tablet by mouth every night as needed melatonin 91668001126 Janay Manrique LIDOCAINE PAIN RELIEF MAX ST 4 % PTCH Place 1 patch once a day as directed lidocaine 27113363955 Janay Manrique DESVENLAFAXINE SUCCINATE ER 100 MG [id number] Take 2 tablet by mouth once a day desvenlafaxine succinate 80171975089 Janay Manrique DOXYCYCLINE HYCLATE 100 MG CAPS Take 1 capsule by mouth twice a day 09/28 doxycycline hyclate 53086674352 Janay Burton ALENDRONATE SODIUM 70 MG TABS Take 1 tablet by mouth once a week alendronate 23976237997 Janay Manrique Cubicin RF (daptomycin) recon soln Cubicin 650mg IV [id number] 09/15 daptomycin Kamila Wolfe RN aztreonam recon solmeseret Aztreonam 2G IV [id number] [facility] 09/15 aztreonam recon soln Kamila Wolfe RN Valbenazine Tosylate 80 MG capsule Take 1 capsule by mouth Daily. 09/15 Valbenazine Tosylate 80 MG capsule QIE qieuser TRAZODONE HCL 150 MG TABS Take 3 tablets by mouth Every Night. 09/15 trazodone 23812333001 QIE qieuser SENNOSIDES-DOCUSAT E SODIUM 8.6-50 MG TABS Take 2 tablets by mouth 2 (Two) Times a Day As Needed for Constipation. 01/26 sennosides-docusa te sodium 46160418219 QIE qieuser PROMETHAZINE HCL 25 MG TABS Take 1 tablet by mouth Every 6 (Six) Hours As Needed for Nausea or Vomiting. 09/15 promethazine 38384632723 QIE qieuser PROCHLORPERAZINE EDISYLATE 10 MG/2ML SOLN Infuse 2 mL into a venous catheter Every 8 (Eight) Hours As Needed (headache/migrai ne (give with iv benadryl)). 09/15 prochlorperazine edisylate 59667001368 QIE qieuser PEG 3350 17 GM PACK Take 17 g by mouth Daily. 09/15 polyethylene glycol 3350 91451718318 QIE qieuser ONETOUCH ULTRA STRP null blood sugar diagnostic 53905009565 QIE qieuser OMEPRAZOLE 40 MG CPDR Take 1 capsule by mouth Daily. 09/15 omeprazole 73180692611 QIE qieuser NIFEDIPINE ER 30 MG [id number] Take 1 tablet by mouth Daily. 09/15 nifedipine 18113551755 QIE qieuser NICOTINE STEP 1 21 MG/24HR PT24 null nicotine 49166222458 QIE qieuser MELATONIN 5 MG TABS Take 1 tablet by mouth At Night As Needed (insomnia). 09/15 melatonin 87174638036 QIE qieuser LISINOPRIL 40 MG TABS Take 1 tablet by mouth Daily. 09/15 lisinopril 27668249822 QIE qieuser LIDOCAINE PAIN RELIEF MAX ST 4 % PTC Place 1 patch on the skin as directed by provider Daily. Remove & Discard patch within 12 hours or as directed by 09/15 lidocaine 34491491022 QIE qieuser LEVETIRACETAM 500 MG TABS Take 1 tablet by mouth Every 12 (Twelve) Hours. 09/15 levetiracetam 13602790558 QIE qieuser ONETOUCH DELICA PLUS [id number] null lancets 38399207500 QIE qieuser INSULIN LISPRO 100 UNIT/ML SOLN Inject 2-7 Units under the skin into the appropriate area as directed 4 (Four) Times a Day Before Meals & at Bedtime. 09/15 insulin lispro 89114136117 QIE qieuser insulin detemir (LEVEMIR) 100 UNIT/ML injection Inject 5 Units under the skin into the appropriate area as directed Every Morning. 09/15 LEVEMIR QIE qieuser HYDROXYZINE PAMOATE 25 MG CAPS Take 1 capsule by mouth 3 (Three) Times a Day As Needed for Itching. 09/15 hydroxyzine pamoate 84636517911 QIE qieuser GABAPENTIN 400 MG CAPS Take 2 capsules by mouth Every 8 (Eight) Hours for 4 days. 09/08 gabapentin 59865846701 QIE qieuser ENOXAPARIN SODIUM 40 MG/0.4ML SOSY Inject 0.4 mL under the skin into the appropriate area as directed Daily for 60 days. 11/02 enoxaparin 78588161973 QIE qieuser DOXYCYCLINE HYCLATE 100 MG CAPS Take 1 capsule by mouth 2 (Two) Times a Day for 14 days. 09/28 doxycycline hyclate 16678040787 QIE qieuser DOCUSATE SODIUM 100 MG CAPS Take 1 capsule by mouth 2 (Two) Times a Day for 15 days. 09/18 docusate sodium 48521953100 QIE qieuser DESVENLAFAXINE SUCCINATE ER 100 MG [id number] Take 2 tablets by mouth Daily. 09/15 desvenlafaxine succinate 74173310270 QIE qieuser CYCLOBENZAPRINE HCL 5 MG TABS Take 1 tablet by mouth 3 (Three) Times a Day As Needed for Muscle Spasms. 09/15 cyclobenzaprine 24921566250 QIE qieuser CETIRIZINE HCL 10 MG TABS Take 1 tablet by mouth Daily. 09/15 cetirizine 57610928616 QIE qieuser ANTACID CALCIUM 500 MG CHEW null calcium carbonate 20095619490 QIE qieuser BD PEN NEEDLE MICRO U/F 32G X 6 MM null pen needle, diabetic 26851326164 QIE qieuser ATORVASTATIN CALCIUM 80 MG TABS Take 1 tablet by mouth Every Night. 09/15 atorvastatin 86848147072 QIE qieuser QULIPTA 60 MG TABS Take 1 tablet by mouth. 09/15 atogepant 44934544862 QIE qieuser ASPIRIN 325 MG TABS Take 1 tablet by mouth Daily. 09/15 aspirin 89921050742 QIE qieuser ALENDRONATE SODIUM 70 MG TABS Take 1 tablet by mouth Every 7 (Seven) Days. 09/15 alendronate 54268260416 QIE qieuser ACETAMINOPHEN 500 MG TABS Take 1 tablet by mouth Every 6 (Six) Hours As Needed for Mild Pain. 09/15 acetaminophen 21961782793 QIE qieuser ACETAMINOPHEN 325 MG TABS Take 2 tablets by mouth Every 6 (Six) Hours As Needed for Mild Pain. 09/15 acetaminophen 30380389895 QIE qieuser Medications Administered No information available. Allergies, Adverse Reactions, Alerts Allergy Name Reaction Description Start Date Severity Statu s Provider SULFA ANTIBIOTICS Critical Active A ngela Fu ASPARTAME (FOR COMPOUNDING) Critical A ctive Sherly Fu ONDANSETRON Critical Active Sherly Fu VIIBRYD Critical Active Sherly Fu KETOROLAC TROMETHAMINE Critical Active Shrely Fu IMITREX Critical Active Sherly Fu REGLAN Critical Active Sherly Fu QUETIAPINE FUMARATE Critical Active Sherly Fu BICILLIN C-R Critical Active Sherly Fu NARATRIPTAN HCL Critical Active Ang marielos Fu METHADONE HCL Critical Active Yadiel a Fu ERYTHROMYCIN STEARATE Critical Active Sherly Fu ELETRIPTAN HYDROBROMIDE Critical Activ e Sherly Fu DIHYDROERGOTAMINE MESYLATE Critical Ac tive Sherly Fu CIPRO Critical Active Sherly Fu TRIMETHOPRIM Moderate Active Sherly Fu QUINOLONES Moderate Active Sherly F u CEPHALOSPORINS Critical Active Conchis la Fu CEPHALEXIN Moderate Active Sherly F u Results Date Name Value Unit Range Flag Description Chart Maintenance BILI TOTAL <0.2 mg/dL Bilirubin. total [Mass/volume] in Serum or Plasma SGOT (AST) 58 U/L Aspartate aminotransferase [Enzymatic activity/volume] in Serum or Plasma SGPT (ALT) 59 U/L Alanine aminotransferase [Enzymatic activity/volume] in Serum or Plasma ALK PHOS 134 U/L Alkaline amber sphatase [Enzymatic activity/volume] in Blood CREATININE 1.19 mg/dL Creatinine [Mass/volume] in Serum or Plasma BUN 27 mg/dL Urea nitrogen [Mass/volume] in Serum or Plasma CALCIUM 9.6 mg/dL Calcium [Moles/volume] in Serum or Plasma POTASSIUM 5.4 mmol/L Potassium [Moles/volume] in Serum or Plasma SODIUM 139 mmol/L Sodium [Moles/volume] in Serum or Plasma GLUCOSE SER 164 mg/dL Glucose [Mass/volume] in Serum or Plasma Lab Report: CBC With Differe ntial/Platelet, C-Reactive Protein, Quant BASOPHIL % 1 % Not Estab. Basophi ls/100 leukocytes in Blood by Manual count LYMPHS % 33 % Not Estab. Lymphocyt es/100 leukocytes in Blood by Automated count PMN % 59 % Not Estab. Neutrophil s/100 leukocytes in Blood by Automated count RDW 12.7 % 11.7-15.4 Erythrocyte distribution width [Ratio] by Automated count Lab Report: C-REACTIVE PROTE IN CRP <0.30 mg/dL 0.00-0.50 C reactive protein [Mass/volume] in Serum or Plasma Lab Report: CBC WITH AUTO DI FFERENTIAL [id number]-GE-[id number] 0.0 /100 WBC 0.0-0.2 GE use only - fo r [employer] import when terms are not otherwise specified IMMATUREGRAN 0.04 10*3/MM3 0.00-0.05 Immature granulocytes [#/volume] in Blood BASO# 0.09 10*3/mm3 0.00-0.20 Basophils [#/vol ume] in Blood EOS ABSLT 0.08 10*3/uL 0.00-0.40 Eosinophi ls [#/volume] in Blood MONOSCT AUTO 0.51 10*3/uL 0.10-0.90 Monocy bethany [#/volume] in Blood by Automated count LYMPHCT AUTO 2.48 10*3/mm3 0.70-3.10 Lymph ocytes [#/volume] in Blood by Automated count ABS NEUTROPH 5.58 10*3/uL 1.70-7.00 Neutro phils [#/volume] in Blood IMM GRANU % 0.5 % 0.0-0.5 Immature granulocytes/100 leukocytes in Blood % EOS AUTO 0.9 % 0.3-6.2 Eosinophil s/100 leukocytes in Blood by Automated count MONOCYTE % 5.8 % 5.0-12.0 Monocytes /100 leukocytes in Blood by Automated count LYMPHOCY BF 28.2 % 19.6-45.3 lymphoc ytes as percent of body fluid leukocytes NEUTROP BF 63.6 % 42.7-76.0 Neutroph ils/100 leukocytes in Body fluid PLATELETS 279 10*3/mm3 140-450 Platelets [#/volume] in Blood by Automated count RDW_ 14.5 12.3-15.4 RDW, no uni ts MCHC 31.4 G/DL 31.5-35.7 L MCHC [Mass/ volume] by Automated count MCH 27.3 pg 26.6-33.0 MCH [Entiti c mass] by Automated count MCV 87.1 fL 79.0-97.0 MCV [Entiti c volume] by Automated count HCT 47.8 % 34.0-46.6 H Hematocrit [Volume Fraction] of Blood by Automated count HGB 15.0 g/dL 12.0-15.9 Hemoglobin [Mass/volume] in Blood RBC 5.49 10*6/mm3 3.77-5.28 H Erythrocyt es [#/volume] in Blood by Automated count WBC 8.78 10*3/mm3 3.40-10.80 Leukocyte s [#/volume] in Blood by Automated count Office Visit: Office Visit:1 MEDS REVIEW Done Documenta tion of current medications (procedure) ORALTOBACUSE Never Tobacco smoking status SMOK STATUS Former smoker Tobacco smoking status Plan of Care Type Date Detail Pending order CBC with Differe ntial Pending order C- reactive prot ein Pending order STAT Labs Pending order CBC with Differe ntial Pending order C- reactive prot ein Pending order CPK Pending order Sedimentation Ra te (ESR) Pending order CMP Procedures Code Procedure Name Date Entry Date [id number] CBC with Differential 2023 CPT-18907 C- reactive protein CPT-sl STAT Labs [id number] CBC with Differential 2023 CPT-21304 C- reactive protein [id number], [id number] CPK CPT-74913 Sedimentation Rate (ESR) 202 10/20/22 CPT-62784 CMP Vital Signs Date Name Value Unit Description BMI (Body Mass Index) 23.62 kg/m2 Bod y Mass Index (Ratio) Body Temperature 97.7 [degF] temperat ure E&M BP Diastolic 64 mm[Hg] blood pressu re, diastolic BP Systolic 95 mm[Hg] blood pressur e, systolic Heart Rate 80 /min pulse rate Height 66 [in_us] height E&M Respiratory Rate 16 /min respirat ory rate E&M Weight Measured 146.38 [lb_av] weight E& M Immunizations No information available. Advance Directives No information available.
--- OUTSIDE RECORDS SUMMARY | 2024-02-12 15:02 | XMS_ITS ---
Author Organization [facility] Address [address] [facility] [address] [place] [address] Phone Care Team Providers Care Paraprofessional Interpreter Name Role Phone Gilmar COFFEY, Luigi Carlton Unavailable [ ] Conditions or Problems No information available. Medications No information available. Medications Administered No information available. Allergies, Adverse Reactions, Alerts No information available. Results Date Name Value Unit Range Flag Description Office Visit: Office Visit:07 21 MEDS REVIEW Done Documenta tion of current medications (procedure) ORALTOBACUSE Never Tobacco smoking status SMOK STATUS Former smoker Tob acco smoking status Plan of Care No information available. Procedures No information available. Vital Signs Date Name Value Unit Description [...]
--- OUTSIDE RECORDS SUMMARY | 2024-02-12 15:03 | XMS_ITS ---
Author Organization [facility] Address [address] [facility] [address] [id number] Care Team Providers Care Marketing Content Specialist Name Role Phone Samuel Gutierres Primary Care Provider ALLERGIES Allergen (clinical drug ingredient) Drug/Non Drug Allergy documented on EMR Reaction Allergy Type Onset Date Status AMERGE (uncoded) HBP and palpitations Allergy Active erenumab Aimovig leg pain Drug Allergy Active cephalexin Cephalexin Unknown Drug Allergy Activ e ciprofloxacin Cipro Unknown Drug Allergy Act claribel DHEA Unknown Drug Allergy Active erythromycin Erythromycin Unknown Drug Allergy A ctive sumatriptan Imitrex HBP Drug Allergy Activ e metoclopramide Reglan messed with her head Drug Allergy Active eletriptan Relpax HBP Drug Allergy 05/31/2019 Activ e quetiapine SEROquel Unknown Drug Allergy Active vilazodone Viibryd diarrhea Drug Allergy Active ketorolac Ketorolac Unknown Drug Allergy Active methadone Methadone Unknown Drug Allergy Active Penicillin Unknown Drug Allergy Active Substance with sulfonamide structure and antibacterial mechanism of action (substance) Sulfa Antibiotics itching Drug Allergy Active REASON FOR VISIT headaches MEDICATIONS Medication SIG (Take, Route, Frequency, Duration) Notes Start Date End Date Status Aspirin 81 MG 1 tablet Orally Once a day for 30 day(s) Not-Taking metFORMIN HCl ER 500 MG 2 tab(s) orally once a day for 30 days Not-Taking Losartan Potassium 50 MG 1 tablet Orally Once a day for 30 day(s) Not-Taking Triamcinolone Acetonide 0.1 % 1 application Externally Twice a day 07/10/2023 Not-Takin g Clopidogrel Bisulfate 75 MG 1 tablet Orally Once a day 03/13/2023 Not-Taking Levemir FlexPen 100 UNIT/ML 20 units Subcutaneous once daily 10/07/2023 Active Bromfed DM 2-30-10 MG/5ML 5 ml Orally fo ur times a day as needed 07/10/2023 Not-Taking HumuLIN 70/30 KwikPen (70-30) 100 UNIT/ML 20 units Subcutaneous Two times a day for 30 day(s) Not-Taking Albuterol Sulfate HFA 108 (90 Base) MCG/ACT 2 puffs Inhalation q6h prn 07/10/2023 Not-Taking Promethazine HCl 25 MG 1 tab(s) Orally t wo times a day as needed 01/29/2024 Active Lisinopril 40 MG 1 tablet Orally Once a day for 30 day(s) Active NIFEdipine ER 30 MG 1 tab(s) Orally Once a day for 30 day(s) Active Diphenoxylate-Atropine 2.5-0.025 MG 1 tab(s) Orally q6h prn diarrhea 12/11/2023 Active OneTouch Ultra - USE TO TEST 4 TIMES DAILY DIRECTED. Active OneTouch FinePoint Lancets - Four times a day Active Lidocaine 4 % 1 patch Externally O nce a day prn 10/07/2023 Active Melatonin 5 MG 1 tab Orally At Bed Time for 30 day(s) 10/07/2023 Active Alendronate Sodium 70 MG 1 tablet 30 min utes before the first food, beverage or medicine of the day with plain water Orally once a week 10/07/2023 Active Qulipta 60 MG 1 tab(s) orally once a day for 30 day(s) Active Omeprazole 40 MG 1 cap(s) Orally once daily Active traZODone HCl 150 MG 1 tab(s) orally onc e a day (at bedtime) Active tiZANidine HCl 4 MG 1 tablet Orally Thre e times a day Active Cetirizine HCl 10 MG 1 tablet Orally onc e daily Active Tums 500 MG 2 tablet Orally four times a day as needed 05/06/2023 Active Acetaminophen 325 MG 2 tab(s) Orally q6h prn Active Desvenlafaxine ER 100 MG 1 tab(s) orally once a day for 30 day(s) Active Vistaril 25 MG 1 cap(s) orally thre e times a day as needed for 30 days Active Aspirin 325 MG 1 tab(s) orally once a day for 30 day(s) Active Keppra 500 MG 1 tablet Orally Two times a day Active Glucagon Emergency 1 MG as directed Injection 05/21 Active Kid$ShirtTouch Ultra 2 w/Device as directed 12/31/2022 Active Kid$ShirtTouch SureSoft Lancing Dev - 12/31/2022 Active BD Pen Needle Micro U/F 32G X 6 MM as directed 12/31/2022 Active ONE TOUCH GLUCOMETER DIRECTED USE DIRECTED 08/15/2021 Active ONE TOUCH TEST STRIPS DIRECTED TESTS FOUR TIMES A DAY 08/15/2021 Active Ingrezza 80 MG 1 cap(s) orally once a day Active GLUCOMETER DIRECTED TEST QD 07/09/2021 Active Levemir FlexPen 100 UNIT/ML 10 units Subcutaneous once daily Active Atorvastatin Calcium 80 MG 1 tab(s) orally once a day in the evening Active Farxiga 10 MG 1 tab(s) Orally once a day Active Gabapentin 800 MG 1 tab(s) orally 3 ti mes a day for 30 day(s) 10/07/2023 Active FreeStyle John 14 Day [place] - as directed Active VITAL SIGNS Weight 147.6 lbs 02/12/2024 Blood pressure systolic 148 mm Hg 02/12/20 24 Blood pressure diastolic 86 mm Hg 024 Heart Rate 100 /min 02/12/2024 Height 63.50 in 02/12/2024 BMI 25.73 kg/m2 02/12/2024 Encounters Encounter Location Date Provider Diagnosis [facility] [address] [facility] [address] [facility] [address] [place] [id number] 02/12/2024 Samuel Gutierres Intractable periodic headache syndrome G43.C1 ASSESSMENTS Encounter Date Diagnosis Assessment Notes Treatment Notes Treatment Clinical Notes 02/12/2024 Intractable periodic headache syndrome (ICD-10 - G43.C1) Order provided for injection of Stadol 3 mg and Phenergan 50 mg IM at [facility] today. PLAN OF TREATMENT Treatment Notes Assessment Notes Intractable periodic headache syndrome O rder provided for injection of Stadol 3 mg and Phenergan 50 mg IM at [facility] today. Next Appt Details Provider Name:Samuel Woodward, 02/12/2024 02:15:00 PM, [address] [facility] [address] [facility], [address], [place], [id number], History and Physical Notes * HPI (History of Present Illness) Category Sub-Category Detail Notes Neurology headache Pt presents toda y with c/o migraine that has been persistent for 2 weeks
--- OUTSIDE RECORDS SUMMARY | 2024-02-12 15:03 | XMS_ITS ---
Author Organization [facility] Address [address] [place] [address] Phone Care Team Providers Care Utility Inspector Name Role Phone Gilmar COFFEY, Luigi Carlton Unavailable [ ] Conditions or Problems No information available. Medications No information available. Medications Administered No information available. Allergies, Adverse Reactions, Alerts No information available. Results Date Name Value Unit Range Flag Description Office Visit: Office Visit: room 3 ORALTOBACUSE Never Tobacco smoking status SMOK STATUS Former smoker Tob acco smoking status MEDS REVIEW Done Documenta tion of current medications (procedure) Plan of Care Type Date Detail Pending order CBC with Differe ntial Pending order C- reactive prot ein Procedures Code Procedure Name Date Entry Date [id number] CBC with Differential 2023 CPT-33499 C- reactive protein Vital Signs Date Name Value Unit Description BMI (Body Mass Index) 26.05 kg/m2 Bod y Mass Index (Ratio) Body Temperature 98.4 [degF] temperat ure E&M BP Diastolic 74 mm[Hg] blood pressu re, diastolic BP Systolic 132 mm[Hg] blood pressur e, systolic Heart Rate 68 /min pulse rate Height 66 [in_us] height E&M Respiratory Rate 16 /min respirat ory rate E&M Weight Measured 161.4 [lb_av] weight E& M Immunizations No information available. Advance Directives No information available.
--- OUTSIDE RECORDS SUMMARY | 2024-02-12 15:03 | XMS_ITS ---
Author Organization [facility] Address [address] [place] [address] Phone Care Team Providers Care Creative Strategist Name Role Phone Gilmar COFFEY, Luigi Carlton Unavailable [ ] Conditions or Problems No information available. Medications Medication Instructions Start Date Stop Date Generic Name [facility] Provider NIFEDIPINE ER 30 MG [id number] Take 1 tablet by mouth once a day nifedipine 80616599133 Janay Manrique LISINOPRIL 40 MG TABS Take 1 tablet by mouth once a day lisinopril 03364571030 Janay Manrique QULIPTA 60 MG TABS Take 1 tablet by mouth atogepant 41421359816 Janay Manrique ACETAMINOPHEN 500 MG TABS Take 1 tablet by mouth every six hours as needed acetaminophen 89353387000 Janay Manrique insulin detemir (LEVEMIR) 100 UNIT/ML injection Inject 5 unit subcutaneously every morning as directed LEVEMIR Janay Manrique ACETAMINOPHEN 325 MG TABS Take 2 tablet by mouth every six hours as needed acetaminophen 37143069968 Janay Manrique HYDROXYZINE PAMOATE 25 MG CAPS Take 1 capsule by mouth three times a day as needed hydroxyzine pamoate 87861045518 Janay Manrique LEVETIRACETAM 500 MG TABS Take 1 tablet by mouth every twelve hours levetiracetam 01581479885 Janay Manrique ASPIRIN 325 MG TABS Take 1 tablet by mouth once a day aspirin 57029822121 Janay Manrique PEG 3350 17 GM PACK Take 17 gram by mouth once a day polyethylene glycol 3350 10990770872 Janay Manrique CYCLOBENZAPRINE HCL 5 MG TABS Take 1 tablet by mouth three times a day as needed cyclobenzaprine 17009508300 Janay Manrique ENOXAPARIN SODIUM 40 MG/0.4ML SOSY Inject 0.4 ml subcutaneously once a day as directed 11/02 enoxaparin 81844266261 Janay Manrique ATORVASTATIN CALCIUM 80 MG TABS Take 1 tablet by mouth every night atorvastatin 93015501460 Janay Manrique PROCHLORPERAZINE EDISYLATE 10 MG/2ML SOLN 2 ml every eight hours as needed prochlorperazine edisylate 54839845298 Janay Manrique INSULIN LISPRO 100 UNIT/ML SOLN Inject 2-7 unit subcutaneously four times a day as directed insulin lispro 70884248798 Janay Manrique SENNOSIDES-DOCUSAT E SODIUM 8.6-50 MG TABS Take 2 tablet by mouth twice a day as needed sennosides-docusa te sodium 46093917762 Janay Manrique PROMETHAZINE HCL 25 MG TABS Take 1 tablet by mouth every six hours as needed promethazine 81263527146 Janay Manrique Valbenazine Tosylate 80 MG capsule Take 1 capsule by mouth once a day Valbenazine Tosylate 80 MG capsule Janay Manrique TRAZODONE HCL 150 MG TABS Take 3 tablet by mouth every night trazodone 57297374864 Janay Manrique DOCUSATE SODIUM 100 MG CAPS Take 1 capsule by mouth twice a day 09/18 docusate sodium 59178738230 Janay Manrique OMEPRAZOLE 40 MG CPDR Take 1 capsule by mouth once a day omeprazole 11919394807 Janay Manrique CETIRIZINE HCL 10 MG TABS Take 1 tablet by mouth once a day cetirizine 48561492112 Janay Manrique MELATONIN 5 MG TABS Take 1 tablet by mouth every night as needed melatonin 64702958606 Janay Manrique LIDOCAINE PAIN RELIEF MAX ST 4 % PTCH Place 1 patch once a day as directed lidocaine 53767913416 Janay Manrique DESVENLAFAXINE SUCCINATE ER 100 MG [id number] Take 2 tablet by mouth once a day desvenlafaxine succinate 32210792350 Janay Manrique DOXYCYCLINE HYCLATE 100 MG CAPS Take 1 capsule by mouth twice a day 09/28 doxycycline hyclate 43215371776 Janay Manrique ALENDRONATE SODIUM 70 MG TABS Take 1 tablet by mouth once a week alendronate 81453761474 Janay Manrique Medications Administered No information available. Allergies, Adverse Reactions, Alerts No information available. Results Date Name Value Unit Range Flag Description Office Visit: Office Visit:1 MEDS REVIEW Done Documenta tion of current medications (procedure) ORALTOBACUSE Never Tobacco smoking status SMOK STATUS Former smoker Tob acco smoking status Plan of Care No information available. Procedures No information available. Vital Signs Date Name Value Unit Description BMI (Body Mass Index) 24.53 kg/m2 Bod y Mass Index (Ratio) Body Temperature 97.3 [degF] temperat ure E&M BP Diastolic 86 mm[Hg] blood pressu re, diastolic BP Systolic 131 mm[Hg] blood pressur e, systolic Heart Rate 63 /min pulse rate Height 66 [in_us] height E&M Respiratory Rate 16 /min respirat ory rate E&M Weight Measured 152 [lb_av] weight E& M Immunizations No information available. Advance Directives No information available.
--- OUTSIDE RECORDS SUMMARY | 2024-02-12 15:03 | XMS_ITS ---
Author Organization [facility] Address [address] [facility] [address] [facility] [address] [place] [id number] Care Team Providers Care Cycle Repairer Name Role Phone Samuel Gutierres Primary Care Provider [phone] REASON FOR VISIT refill MEDICATIONS Medication SIG (Take, Route, Fr equency, Duration) Notes Start Date End Date Status Promethazine HCl 25 MG 1 tab(s) Orally t wo times a day as needed 01/29/2024 Active Encounters Encounter Location Date Provider Diagnosis [facility] [address] [facility] [address] [facility] [address] [place] [id number] 01/28/2024 Samuel Gutierres PLAN OF TREATMENT Medication Medication Name Sig Start Date Stop Date Notes Promethazine HCl 25 MG 1 tab(s) Orally t wo times a day as needed 01/29/2024 Next Appt Details Provider Name:Samuel Woodward, 02/12/2024 02:15:00 PM, [address] [facility] [address] [facility], [address], [place], [phone],
--- OUTSIDE RECORDS SUMMARY | 2024-02-12 15:04 | XMS_ITS ---
Author Organization [facility] Address [address] [facility] [address] [facility] [address] [place] [id number] Care Team Providers Care Molder Apprentice Name Role Phone Samuel Gutierres Primary Care Provider REASON FOR VISIT Message Encounters Encounter Location Date Provider Diagnosis [facility] [address] [facility] [address] [place] [id number] 01/15/2024 Samuel Gutierres PLAN OF TREATMENT Next Appt Details Provider Name:Samuel Woodward, 02/12/2024 02:15:00 PM, [address] [facility], [address], [place], [phone],
[2024-02-12 15:14] VITALS: BP 148/99; PULSE 83; RESP 18; O2SAT 98
[2024-02-12] MEDS: PROMETHAZINE HCL 25MG/ML 1ML VIAL 50 MG (15:16)
[2024-02-12] MEDS: BUTORPHANOL TARTRATE 1 MG/ML VIAL 3 MG IM (15:17)
--- NOTE | 2024-02-12 16:48 | PC.NURSE ---
1648-pt taken to front lobby to wait on ride.
[2024-02-12 17:28] VITALS: BP 178/89; PULSE 85; RESP 18; O2SAT 95
--- NOTE | 2024-02-12 18:03 | PC.NURSE ---
Addendum entered by Wing Brito RN 02/12/24 18:06: 02/12/24 1735 Original Note: 02/12/24 1535 Report received from Abi Iqbal RN, pt has been d/c'd but is waiting on transportation. Met with pt where she was sitting in the lobby and remained with her awaiting transport.
--- NOTE | 2024-02-12 18:06 | PC.NURSE ---
02/12/24 1800 Transportation arrived for pt and walked with pt using her rolling walker to the van. Pt able to ambulate and put herself in the vehicle.
== END 2024-02-12 18:00 | disposition home or self-care (01) ==
LOC: INF 15:01
PROVIDERS: PCP Family Medicine; Visit Provider Family Medicine
DX: G43.C1 Periodic headache syndromes in child or adult, intractable (principal); Z79.899 Other long term (current) drug therapy
CPT/HCPCS: 96372; J0595; J2550

== ENCOUNTER 2024-02-26 11:05 | Outpatient (CLI) | payer MEDICARE, MEDICAID, SELFPAY ==
--- NOTE | 2024-02-26 12:00 | PC.NURSE ---
1200-pt notified that if she does not have rider with her she is unable to receive medications per patient safety.
--- NOTE | 2024-02-26 12:05 | PC.NURSE ---
1205-rn called facility where pt lives to notify of changes; pt needing a rider to accompany if receiving sedating medications.
--- NOTE | 2024-02-26 12:15 | PC.NURSE ---
1210-rn notified dr. engle of new policy that pt has to have a rider accompany her if she receiving sedating medications; md is in agreeance with policy, he was under assumption pt had a rider with her.
== END 2024-02-26 13:00 | disposition home or self-care (01) ==
LOC: INF 11:07
PROVIDERS: PCP Family Medicine; Visit Provider Family Medicine
DX: G43.909 Migraine, unspecified, not intractable, without status migrainosus (principal)

== ENCOUNTER 2024-03-04 11:10 | Outpatient (CLI) | payer MEDICARE, MEDICAID, SELFPAY ==
[2024-03-04] MEDS: BUTORPHANOL TARTRATE 1 MG/ML VIAL 3 MG IM (11:59)
[2024-03-04 12:00] VITALS: BP 142/67; PULSE 70; RESP 18; TEMP 36.4; O2SAT 98
[2024-03-04] MEDS: PROMETHAZINE HCL 25MG/ML 1ML VIAL 50 MG (12:00)
[2024-03-04 13:15] VITALS: BP 156/71; PULSE 81; RESP 16; O2SAT 97
== END 2024-03-04 13:15 | disposition home or self-care (01) ==
LOC: INF 11:11
PROVIDERS: PCP Family Medicine; Visit Provider Family Medicine
DX: G43.019 Migraine without aura, intractable, without status migrainosus (principal)
CPT/HCPCS: 96372; J0595; J2550

== ENCOUNTER 2024-03-25 11:48 | Outpatient (CLI) | payer MEDICARE, MEDICAID, SELFPAY ==
[2024-03-25] MEDS: BUTORPHANOL TARTRATE 2 MG/ML VIAL 3 MG IM (12:22)
[2024-03-25] MEDS: PROMETHAZINE HCL 25MG/ML 1ML VIAL 50 MG (12:25)
[2024-03-25 12:30] VITALS: BP 124/79; PULSE 91; RESP 18; TEMP 36.7; O2SAT 99
== END 2024-03-25 13:10 | disposition home or self-care (01) ==
LOC: INF 11:50
PROVIDERS: PCP Family Medicine; Visit Provider Family Medicine
DX: C41.9 Malignant neoplasm of bone and articular cartilage, unspecified (principal)
CPT/HCPCS: 96372; J0595; J2550

== ENCOUNTER 2024-04-22 12:07 | Outpatient (CLI) | payer MEDICARE, MEDICAID, SELFPAY ==
[2024-04-22 13:07] VITALS: BP 177/97; PULSE 76; RESP 14; TEMP 36.4; O2SAT 97
[2024-04-22] MEDS: PROMETHAZINE HCL 25MG/ML 1ML VIAL 50 MG IM (13:07)
[2024-04-22] MEDS: BUTORPHANOL TARTRATE 1 MG/ML VIAL 3 MG IM (13:07)
[2024-04-22 13:40] VITALS: BP 164/82; PULSE 79; RESP 16; TEMP 36.4; O2SAT 97
== END 2024-04-22 13:42 | disposition home or self-care (01) ==
LOC: INF 12:09
PROVIDERS: PCP Family Medicine; Visit Provider Family Medicine
DX: G43.909 Migraine, unspecified, not intractable, without status migrainosus (principal)
CPT/HCPCS: 96372; J0595; J2550

== ENCOUNTER 2024-05-13 11:58 | Outpatient (CLI) | payer MEDICARE, MEDICAID, SELFPAY ==
[2024-05-13 12:46] VITALS: BP 137/85; PULSE 100; RESP 18; TEMP 36.8; O2SAT 98
[2024-05-13] MEDS: BUTORPHANOL TARTRATE 2 MG/ML VIAL 3 MG IM (12:46)
[2024-05-13] MEDS: PROMETHAZINE HCL 25MG/ML 1ML VIAL 50 MG (12:49)
[2024-05-13 13:20] VITALS: BP 159/90; PULSE 90; RESP 16; TEMP 36.8; O2SAT 98
== END 2024-05-13 13:20 | disposition home or self-care (01) ==
LOC: INF 11:59
PROVIDERS: PCP Family Medicine; Visit Provider Family Medicine
DX: G43.901 Migraine, unspecified, not intractable, with status migrainosus (principal)
CPT/HCPCS: 96372; J0595; J2550

== ENCOUNTER 2024-05-27 11:09 | Outpatient (CLI) | payer MEDICARE, MEDICAID, SELFPAY ==
[2024-05-27 12:05] VITALS: BP 139/77; PULSE 78; RESP 17; O2SAT 97
[2024-05-27] MEDS: PROMETHAZINE HCL 25MG/ML 1ML VIAL 50 MG IM (12:06)
[2024-05-27] MEDS: BUTORPHANOL TARTRATE 1 MG/ML VIAL (12:06)
[2024-05-27] MEDS: BUTORPHANOL TARTRATE 2 MG/ML VIAL (12:09)
[2024-05-27 12:40] VITALS: BP 145/93; PULSE 77; RESP 16; O2SAT 98
== END 2024-05-27 12:40 | disposition home or self-care (01) ==
LOC: INF 11:10
PROVIDERS: PCP Family Medicine; Visit Provider Family Medicine
DX: G43.909 Migraine, unspecified, not intractable, without status migrainosus (principal)
CPT/HCPCS: 96372; J0595; J2550

== ENCOUNTER 2024-07-01 12:52 | Outpatient (CLI) | payer MEDICARE, MEDICAID, SELFPAY ==
[2024-07-01 13:20] VITALS: BP 131/75; PULSE 76; RESP 16; TEMP 36.8; O2SAT 98
--- NOTE | 2024-07-01 15:53 | PC.NURSE ---
1320 Patient transported to ED for evaluation of R chest/R arm pain. Report to Shannan Ellis RN at bedside. Patient left in presence of ED staff at bedside/stable. VS upon leaving infusion department BP 131/75, pulse 76, resp 16, temp 98.2, O2 sat 98% room air.
== END 2024-07-01 13:20 | disposition home or self-care (01) ==
LOC: INF 12:52
PROVIDERS: PCP Family Medicine; Visit Provider Family Medicine
DX: G43.009 Migraine without aura, not intractable, without status migrainosus (principal)

== ENCOUNTER 2024-07-01 13:26 | Emergency (ER) | payer MEDICARE, MEDICAID, SELFPAY ==
[2024-07-01] VITALS (8 sets, daily range): BP systolic 131–154; BP diastolic 85–99; PULSE 70–90; RESP 18–29; TEMP 36.4–36.8; O2SAT 93–98; BMI 22.4
--- NOTE | 2024-07-01 13:25 | ECG_ITS ---
APPROVED REPORT Exam: Resting ECG HR:81 bpm ECG Measurements Heart Rate 81 AXES IL 181 P 55 QRSd 104 QRS -25 QT 388 T 62 QTc 425 Conclusion SINUS RHYTHM BORDERLINE LEFT AXIS DEVIATION [QRS AXIS < -20] LOW QRS VOLTAGE IN PRECORDIAL LEADS [QRS DEFLECTION < 1.0 mV IN CHEST LEADS] MODERATE ST DEPRESSION [0.05+ mV ST DEPRESSION] ABNORMAL ECG Electronically signed by : DEE DEE RIVERA, 07/10/2024 07:13:17
--- NOTE | 2024-07-01 13:29 | ED_ITS ---
Discharge Plan Disposition Patient Disposition: Home, Self-Care Condition: Good Prescriptions Prescriptions: No Action lisinopril 5 mg tablet 20 mg PO DAILY trazodone 150 mg tablet 225 mg PO HS Patient Comments: Novolin 70-30 FlexPen U-100 100 unit/mL (70-30) insulin pen 20 unit SQ BID gabapentin 800 mg tablet 800 mg PO TID atorvastatin 80 mg tablet 80 mg PO HS 30 Days Qty: 30 0RF valbenazine 80 mg capsule 80 mg PO DAILY Qty: 30 3RF tizanidine 4 MG tablet 4 mg PO TIDP PRN (Reason: Muscle Spasm) omeprazole 40 MG capsule,delayed release(DR/EC) 40 mg PO DAILY furosemide 20 MG tablet 20 mg PO DAILY metformin 500 MG tablet extended release 24 hr 1,000 mg PO DAILY desvenlafaxine succinate 100 MG tablet extended release 24 hr 100 mg PO DAILY hydroxyzine HCl 25 MG tablet 25 mg PO TIDP PRN (Reason: Anxiety) Qty: 20 0RF aspirin 325 mg tablet 325 mg PO DAILY benztropine 1 mg tablet 1 mg PO BID rimegepant 75 MG tablet,disintegrating 75 mg PO DAILYP PRN (Reason: Migraine Headache) pregabalin 200 MG capsule 200 mg PO TID Qulipta 60 mg tablet 60 mg PO DAILY levetiracetam [Keppra] 500 mg Tablet 500 mg PO BID Referrals Follow up/Referrals: Provider,Referral, MD [Referring] - See instructions Activity Restrictions/Add. Instructions Additional Instructions/Restrictions: Follow-up with your PCP within 48 hours for recheck. I am referring you to cardiology for further evaluation. Please call tomorrow to establish your appointment. For any worsening or not improving signs or symptoms return to the ER as needed Clinical Impressions Clinical Impression: Chest pain Instructions Patient Instructions: DI for Chest Pain Print Language Print Language: Tamazight Discharge ED Provider: Evelio Shrestha HPI <MECHE Lua - Last Filed: 07/01/24 17:33> General Chief Complaint: Chest Pain Stated Complaint: cp Time Seen by Provider: 07/01/24 13:29 History of Present Illness HPI narrative: Patient presents for evaluation of chest pain. Patient was ambulating from Dr. Gutierres's office to the infusion center when she began developing epigastric and right sided chest pain that she states radiated to her back. Patient has multiple medical problems including tardive dyskinesia, history of methamphetamine abuse, history of meningioma status post craniotomy, history of 2 previous other neurologic surgeries for dross lesions after that. She also has had chronic headaches and has been seen all over the [facility] for management currently being managed by Dr. Gutierres with Phenergan and Stadol infusions, history of CVA, history of diabetic neuropathy, history of type 2 diabetes mellitus on insulin, history of hyperlipidemia, hypertension, GERD, muscle spasms. She denies any fever chills hemoptysis hematochezia melena nausea vomit diarrhea. Related Data Home Medications ?Medication ?Instructions ?Recorded ?Confirmed pregabalin 200 mg capsule 200 mg PO TID Pain 06/09/21 05/27/24 rimegepant 75 mg disintegrating 75 mg PO DAILYP PRN Migraine 06/09/21 05/27/24 tablet Headache desvenlafaxine succinate 100 mg 100 mg PO DAILY MOOD 12/07/21 05/27/24 tablet,extended release 24 hr furosemide 20 mg tablet 20 mg PO DAILY Fluid 12/07/21 05/27/24 metformin 500 mg tablet,extended 1,000 mg PO DAILY Diabetes 12/07/21 05/27/24 release 24 hr omeprazole 40 mg capsule,delayed 40 mg PO DAILY GERD 12/07/21 05/27/24 release tizanidine 4 mg tablet 4 mg PO TIDP PRN Muscle Spasm 12/07/21 05/27/24 lisinopril 5 mg tablet 20 mg PO DAILY blood pressure 02/27/22 05/27/24 trazodone 150 mg tablet 225 mg PO HS Sleep 02/27/22 05/27/24 insulin NPH-regular 70-30 U-100 20 unit SQ BID Diabetes 04/25/22 05/27/24 insulin 100 unit/mL subcutaneous pen (Novolin 70-30 FlexPen U-100 Insulin) aspirin 325 mg tablet 325 mg PO DAILY Blood thinner 05/16/22 05/27/24 benztropine 1 mg tablet 1 mg PO BID Tremors 05/16/22 05/27/24 gabapentin 800 mg tablet 800 mg PO TID NEUROPATHY 06/17/22 05/27/24 atogepant 60 mg tablet (Qulipta) 60 mg PO DAILY MOOD 08/29/22 05/27/24 levetiracetam 500 mg tablet 500 mg PO BID 06/19/23 05/27/24 (Keppra) Previous Rx's ?Medication ?Instructions ?Recorded atorvastatin 80 mg tablet 80 mg PO HS Cholesterol 30 days 09/08/20 #30 tabs hydroxyzine HCl 25 mg tablet 25 mg PO TIDP PRN Anxiety #20 tabs 12/10/21 valbenazine 80 mg capsule 80 mg PO DAILY MOOD #30 caps 12/17/22 Allergies Allergy/AdvReac Type Severity Reaction Status Date / Time cephalexin (CEPHALEXIN) Allergy Intermediate I-ITCHING Verified 04/22/24 12:18 Cephalosporins Allergy Intermediate ITCHING Verified 04/22/24 12:18 levofloxacin (From LEVAQUIN) Allergy Intermediate I-RASH Verified 04/22/24 12:18 Macrolide Antibiotics Allergy Intermediate ITCHING Verified 04/22/24 12:18 Penicillins (PENICILLINS) Allergy Intermediate I-RASH, Verified 04/22/24 12:18 VOMITING Quinolones (QUINOLONES) Allergy Intermediate I-RASH Verified 04/22/24 12:18 Sulfa (Sulfonamide Allergy Intermediate I-RASH Verified 04/22/24 12:18 Antibiotics) (SULFA (SULFONAMIDE ANTIBIOTICS)) trimethoprim (TRIMETHOPRIM) Allergy Intermediate I-RASH Verified 04/22/24 12:18 ciprofloxacin (From CIPRO) Allergy Unknown Unknown Verified 04/22/24 12:18 allergy reaction eletriptan (From RELPAX) Allergy Unknown Unknown Verified 04/22/24 12:18 allergy reaction ergonovine (ERGONOVINE) Allergy Unknown NA-NAUSEA/V Verified 04/22/24 12:18 OMITING erythromycin base Allergy Unknown Unknown Verified 04/22/24 12:18 (ERYTHROMYCIN BASE) allergy reaction ketorolac (KETOROLAC) Allergy Unknown NA-NAUSEA/V Verified 04/22/24 12:18 OMITING methadone (METHADONE) Allergy Unknown SWELLING Verified 04/22/24 12:18 OF FEET metoclopramide (From REGLAN) Allergy Unknown NA-HALLUCIN Verified 04/22/24 12:18 ATIONS naratriptan (NARATRIPTAN) Allergy Unknown Unknown Verified 04/22/24 12:18 allergy reaction quetiapine (From SEROQUEL) Allergy Unknown Unknown Verified 04/22/24 12:18 allergy reaction sumatriptan (From IMITREX) Allergy Unknown Unknown Verified 04/22/24 12:18 allergy reaction vilazodone (From VIIBRYD) Allergy Unknown Unknown Verified 04/22/24 12:18 allergy reaction [facility] <MECHE Lua - Last Filed: 07/01/24 17:33> [facility] Disclaimer: The information contained in this section may have been updated after the patient was seen, as this information can be updated by other users. Medical History Anxiety and depression Arthritis CAD (coronary artery disease) COPD (chronic obstructive pulmonary disease) CVA (cerebral vascular accident) Diabetes DVT (deep venous thrombosis) Expressive aphasia HLD (hyperlipidemia) HTN (hypertension) Hypothyroid Meningioma Migraine Sinus problem Tardive dyskinesia UTI (urinary tract infection) Surgical History H/O brain surgery History of cardiac cath History of colonoscopy History of tubal ligation S/P lumpectomy, right breast Family History Other Cancer Coronary artery disease Diabetes Stroke Social History Smoking Status: Current every day smoker tobacco type: cigarettes packs per day: 1 second hand exposure: No alcohol intake: current alcohol intake frequency: a few times a month counseling provided: none substance use type: former substance user and methamphetamine current occupational status: disabled Travel in the last 8 weeks: None household members: none housing: apartment number of children: 0 caffeine: Yes Have you lived/traveled outside [place] in past 30 days?: No Contact w/someone who lives/traveled outside [place] past 30 days?: No Exposure to someone with infectious disease in past 14 days?: No Do you have a fever (greater than 100.4 F or 38 C)?: No Have you tested positive for COVID-19: No Exposed to someone with COVID-19 in past 14 days?: No Do you have a sore throat?: No Do you have a cough?: No Do you have any weakness?: No Do you have any diarrhea?: No Are you experiencing any unusual bleeding?: No Do you have any muscle aches/pain?: No Do you have any abdominal pain?: No Are you experiencing loss of taste or smell?: No Other Medical History Have you received the Flu Vaccine for this season: No Have you received the Pneumonia Vaccine: No <MECHE Lua - Last Filed: 07/01/24 17:33> ROS Obtained: Yes Systems reviewed as appropriate & no additional complaints except as documented Physical Exam <MECHE Lua - Last Filed: 07/01/24 17:33> General General appearance: alert and in no apparent distress Head Head exam: normal inspection Respiratory Respiratory exam: Present normal lung sounds bilaterally Cardiovascular Cardiovascular exam: Present regular rate Neurological Exam Neurological exam: Present alert and oriented X3 HEART Score <MECHE Lua - Last Filed: 07/01/24 17:33> HEART Score HEART Score assessment performed?: Yes History (anamnesis): Slightly suspicious ECG: Non-specific disturbance Age: 45-65 years Risk factors: 3 or more risk factors Troponin: </= normal limit HEART Score: 4 <Evelio Shrestha MD - Last Filed: 07/03/24 14:09> HEART Score HEART Score: 4 Critical Care <MECHE Lua - Last Filed: 07/01/24 17:33> Critical Care Time Critical Care Time: No Medical Decision Making <MECHE Lua - Last Filed: 07/01/24 17:33> Medical Records Medical records reviewed: Yes I reviewed the patient's medical records. Corey Inquiry Pt receiving controlled substance: No Vital Signs Vital Signs: 07/01/24 13:27 07/01/24 14:00 07/01/24 14:34 Temperature 97.5 F L Temperature Source Oral Pulse Rate 81 Pulse Rate [Right] 80 Respiratory Rate 20 29 H 20 Blood Pressure 148/92 H 131/95 H Blood Pressure [Right Arm] 147/90 H Blood Pressure Mean [Right Arm] 109 Blood Pressure Source Blood Pressure Source [Right Arm] Automatic Cuff Blood Pressure Position 02 Sat by Pulse Oximetry 98 96 Oxygen Delivery Method Room Air Room Air Room Air 07/01/24 15:00 07/01/24 15:30 07/01/24 16:09 Temperature Temperature Source Pulse Rate 75 77 83 Pulse Rate [Right] Respiratory Rate 18 25 H Blood Pressure 136/89 154/92 H 154/96 H Blood Pressure [Right Arm] Blood Pressure Mean [Right Arm] Blood Pressure Source Blood Pressure Source [Right Arm] Blood Pressure Position 02 Sat by Pulse Oximetry 95 93 L 93 L Oxygen Delivery Method Room Air Room Air Room Air 07/01/24 17:21 07/01/24 17:27 Temperature 97.8 F 98.2 F Temperature Source Oral Pulse Rate 70 90 Pulse Rate [Right] Respiratory Rate 20 18 Blood Pressure 144/85 H 144/99 H Blood Pressure [Right Arm] Blood Pressure Mean [Right Arm] Blood Pressure Source Automatic Cuff Automatic Cuff Blood Pressure Source [Right Arm] Blood Pressure Position Sitting 02 Sat by Pulse Oximetry Oxygen Delivery Method Room Air Room Air Lab Data Lab results reviewed: Yes I reviewed the patient's lab results. Labs: Lab Results 07/01/24 13:28: WBC 8.4, RBC 5.37, Hgb 16.3 H, Hct 49.6 H, MCV 92.3, MCH 30.4, MCHC 32.9, RDW 15.4, Plt Count 241, MPV 7.6, Neut % (Auto) 66.0, Lymph % (Auto) 28.0, Schley % (Auto) 4.7, Eos % (Auto) 0.4, Baso % (Auto) 0.9, Neut # (Auto) 5.5, Lymph # (Auto) 2.4, Schley # (Auto) 0.4, Eos # (Auto) 0.0, Baso # (Auto) 0.1, D- Dimer 0.98 H, Sodium 139, Potassium 3.8, Chloride 105, Carbon Dioxide 26, Anion Gap 11.8, BUN 23 H, Creatinine 1.20 H, Estimated GFR 46 L, Est GFR ( Amer) 55 L, Glucose 133 H, Calcium 9.7, Total Bilirubin 0.5, AST 33, ALT 29, Alkaline Phosphatase 91, Troponin I < 0.01, NT-Pro-B Natriuret Pep 56.6, Total Protein 7.6, Albumin 4.6, Globulin 3.0, Albumin/Globulin Ratio 1.5, Hepatitis C Antibody Non reactive, HIV Ag/Ab Combo Qual Negative 07/01/24 16:27: Troponin I < 0.01 07/01/24 13:28 07/01/24 13:28 Response Orders (Tests/Meds): ED MEDICATIONS Discontinued Medications Generic Name Dose Route Start Last Admin Trade Name Freq PRN Reason Stop Dose Admin Acetaminophen 1,000 mg 07/01/24 14:00 07/01/24 15:02 Acetaminophen 1,000mg/100ml Vial IV 07/01/24 14:01 1,000 mg ONCE ONE Administration ORDERS Category Date Time Status Chest XR -- portable [XR chest portable] Stat Exams 07/01/24 13:56 Completed BNP [NT Pro Brain Natriuretic Pep.] Stat Lab 07/01/24 13:28 Completed CBC w/Auto Diff [Complete Blood Count Auto Diff] Stat Lab 07/01/24 13:28 Completed CMP [Comprehensive Metabolic Panel] Stat Lab 07/01/24 13:28 Completed D-Dimer Stat Lab 07/01/24 13:28 Completed HIV Combo Stat Lab 07/01/24 13:28 Completed Hep C Ab with Reflex to RNA Stat Lab 07/01/24 13:28 Completed Trop I [Troponin I] Stat Lab 07/01/24 13:28 Completed Troponin I Q3H Lab 07/01/24 16:27 Completed MDM Narrative Medical Decision Narrative: In summary patient is a 59-year-old female who presents to the emergency department for evaluation of chest pain. Patient is dynamically stable upon arrival, afebrile. Physical exam is actually remarkable for reproducible right- sided mid chest pain on palpation without rebound or guarding or rigidity. Patient has no epigastric tenderness. Breath sounds are clear bilaterally to the bases without adventitious sounds. EKG appears to be normal sinus rhythm on the bedside monitor.. Differential diagnosis includes musculoskeletal versus cardiovascular cause versus GERD versus PE versus ACS etc. Initial workup will be conducted with hematologic labs plain film chest x-ray twelve-lead EKG. Initial interventions include Tylenol GI cocktail. Initial workup reviewed by me shows her initial troponin is undetectable and patient has a creatinine today of 1.2 however last reference level we have was from 2022 which was normal GFR today was 46 down from 64 and the remainder of her hematologic labs being nonactionable. The patient was placed in observation status at 1500. Medical necessity for observational status is serial troponins. The patient was provided serial reevaluations continuous cardiac monitoring and pulse oximetry while awaiting results. Second troponin was also undetectable. Patient had resolution of her chest pain while she was in the ER.. Given this patient is appropriate for discharge with referral back to her PCP and cardiology for further workup and testing.. Total time in observation was 2 hours and 50 minutes. <Evelio Shrestha MD - Last Filed: 07/03/24 14:09> Vital Signs Vital Signs: 07/01/24 13:27 07/01/24 14:00 07/01/24 14:34 Temperature 97.5 F L Temperature Source Oral Pulse Rate 81 Pulse Rate [Right] 80 Respiratory Rate 20 29 H 20 Blood Pressure 148/92 H 131/95 H Blood Pressure [Right Arm] 147/90 H Blood Pressure Mean [Right Arm] 109 Blood Pressure Source Blood Pressure Source [Right Arm] Automatic Cuff Blood Pressure Position 02 Sat by Pulse Oximetry 98 96 Oxygen Delivery Method Room Air Room Air Room Air 07/01/24 15:00 07/01/24 15:30 07/01/24 16:09 Temperature Temperature Source Pulse Rate 75 77 83 Pulse Rate [Right] Respiratory Rate 18 25 H Blood Pressure 136/89 154/92 H 154/96 H Blood Pressure [Right Arm] Blood Pressure Mean [Right Arm] Blood Pressure Source Blood Pressure Source [Right Arm] Blood Pressure Position 02 Sat by Pulse Oximetry 95 93 L 93 L Oxygen Delivery Method Room Air Room Air Room Air 07/01/24 17:21 07/01/24 17:27 Temperature 97.8 F 98.2 F Temperature Source Oral Pulse Rate 70 90 Pulse Rate [Right] Respiratory Rate 20 18 Blood Pressure 144/85 H 144/99 H Blood Pressure [Right Arm] Blood Pressure Mean [Right Arm] Blood Pressure Source Automatic Cuff Automatic Cuff Blood Pressure Source [Right Arm] Blood Pressure Position Sitting 02 Sat by Pulse Oximetry Oxygen Delivery Method Room Air Room Air Lab Data Labs: Lab Results 07/01/24 13:28: WBC 8.4, RBC 5.37, Hgb 16.3 H, Hct 49.6 H, MCV 92.3, MCH 30.4, MCHC 32.9, RDW 15.4, Plt Count 241, MPV 7.6, Neut % (Auto) 66.0, Lymph % (Auto) 28.0, Schley % (Auto) 4.7, Eos % (Auto) 0.4, Baso % (Auto) 0.9, Neut # (Auto) 5.5, Lymph # (Auto) 2.4, Schley # (Auto) 0.4, Eos # (Auto) 0.0, Baso # (Auto) 0.1, D- Dimer 0.98 H, Sodium 139, Potassium 3.8, Chloride 105, Carbon Dioxide 26, Anion Gap 11.8, BUN 23 H, Creatinine 1.20 H, Estimated GFR 46 L, Est GFR ( Amer) 55 L, Glucose 133 H, Calcium 9.7, Total Bilirubin 0.5, AST 33, ALT 29, Alkaline Phosphatase 91, Troponin I < 0.01, NT-Pro-B Natriuret Pep 56.6, Total Protein 7.6, Albumin 4.6, Globulin 3.0, Albumin/Globulin Ratio 1.5, Hepatitis C Antibody Non reactive, HIV Ag/Ab Combo Qual Negative 07/01/24 16:27: Troponin I < 0.01 Response Orders (Tests/Meds): ED MEDICATIONS Discontinued Medications Generic Name Dose Route Start Last Admin Trade Name Freq PRN Reason Stop Dose Admin Acetaminophen 1,000 mg 07/01/24 14:00 07/01/24 15:02 Acetaminophen 1,000mg/100ml Vial IV 07/01/24 14:01 1,000 mg ONCE ONE Administration ORDERS Category Date Time Status Chest XR -- portable [XR chest portable] Stat Exams 07/01/24 13:56 Completed BNP [NT Pro Brain Natriuretic Pep.] Stat Lab 07/01/24 13:28 Completed CBC w/Auto Diff [Complete Blood Count Auto Diff] Stat Lab 07/01/24 13:28 Completed CMP [Comprehensive Metabolic Panel] Stat Lab 07/01/24 13:28 Completed D-Dimer Stat Lab 07/01/24 13:28 Completed HIV Combo Stat Lab 07/01/24 13:28 Completed Hep C Ab with Reflex to RNA Stat Lab 07/01/24 13:28 Completed Trop I [Troponin I] Stat Lab 07/01/24 13:28 Completed Troponin I Q3H Lab 07/01/24 16:27 Completed MDM Narrative Medical Decision Narrative: In summary patient is a 59-year-old female who presents to the emergency department for evaluation of chest pain. Patient is dynamically stable upon arrival, afebrile. Physical exam is actually remarkable for reproducible right- sided mid chest pain on palpation without rebound or guarding or rigidity. Patient has no epigastric tenderness. Breath sounds are clear bilaterally to the bases without adventitious sounds. EKG appears to be normal sinus rhythm on the bedside monitor.. Differential diagnosis includes musculoskeletal versus cardiovascular cause versus GERD versus PE versus ACS etc. Initial workup will be conducted with hematologic labs plain film chest x-ray twelve-lead EKG. Initial interventions include Tylenol GI cocktail. Initial workup reviewed by me shows her initial troponin is undetectable and patient has a creatinine today of 1.2 however last reference level we have was from 2022 which was normal GFR today was 46 down from 64 and the remainder of her hematologic labs being nonactionable. The patient was placed in observation status at 1500. Medical necessity for observational status is serial troponins. The patient was provided serial reevaluations continuous cardiac monitoring and pulse oximetry while awaiting results. Second troponin was also undetectable. Patient had resolution of her chest pain while she was in the ER.. Given this patient is appropriate for discharge with referral back to her PCP and cardiology for further workup and testing.. Total time in observation was 2 hours and 50 minutes. I was consulted by the BONI, and we discussed the complexity of the problems being addressed.I approved the treatment and management plan for this patient?s care in the Emergency Department, thus performing a substantive portion of the medical decision making.Signed, Evelio Shrestha MD
--- NOTE | 2024-07-01 13:56 | XR_ITS ---
FINAL REPORT CLINICAL HISTORY: Chest pain, cough COMPARISON: None FINDINGS: A single portable view of the chest was obtained. The heart size and pulmonary vascularity are within normal limits. The mediastinum is within normal limits. There are mild linear opacities in the lung bases, which favor atelectasis or scarring. The bony thorax is intact. IMPRESSION: Linear opacities in the lung bases, favor atelectasis or scarring. Reviewed, Interpreted and Dictated by Harsha Knowles III, MD Transcribed by Crissy Baird Authenticated and [facility]
[2024-07-01 14:17] LABS: Basophils # 0.1 K/mm3 (0-0.2); Basophils % 0.9 % (0.1-2.0); Eosinophils % 0.4 % (0.1-12.0); Hematocrit 49.6 % (37.0-47.0); Hemoglobin 16.3 g/dL (12.2-16.2); Lymphocytes # 2.4 K/mm3 (0.7-4.5); Mean Corpuscular HGB Conc 32.9 g/dL (31.8-35.4); Mean Corpuscular Hemoglobin 30.4 pg (27.0-31.2); Mean Corpuscular Volume 92.3 fl (81-99); Mean Platelet Volume 7.6 fl (7.4-10.4); Monocytes # 0.4 K/mm3 (0.1-1.0); Monocytes % 4.7 % (1.7-9.3); Neutrophils # 5.5 K/mm3 (1.8-7.8); Platelet Count 241 K/mm3 (142-424); Red Blood Count 5.37 M/mm3 (4.20-5.40); Red Cell Distribution Width 15.4 % (11.5-17.5); White Blood Count 8.4 K/mm3 (4.8-10.8)
[2024-07-01 14:25] LABS: Alanine Aminotransferase 29 U/L (12-78); Albumin Level 4.6 g/dl (3.5-5.0); Albumin/Globulin Ratio 1.5 (1.1-1.8); Alkaline Phosphatase 91 U/L (38-126); Anion Gap 11.8 mEq/L (5-15); Aspartate Amino Transferase 33 U/L (14-36); Bilirubin,Total 0.5 mg/dl (0.2-1.3); Blood Urea Nitrogen 23 mg/dl (7-17); Calcium 9.7 mg/dl (8.4-10.2); Carbon Dioxide 26 mmol/L (22.0-30.0); Chloride 105 mmol/L (98-107); Estimated Glomerular Filt Rate 46 ml/min (>60); GFR (African American) 55 ML/MIN (>60); Glucose 133 mg/dl (74-100); Potassium 3.8 mmoL/L (3.5-5.1); Sodium 139 mmol/L (136-145); Total Protein,Serum 7.6 g/dl (6.3-8.2)
[2024-07-01 14:29] LABS: D-Dimer 0.98 ug/mL (0.0-0.5)
[2024-07-01 14:37] LABS: NT Pro Brain Natriuretic Pep. 56.6 pg/mL (0-125)
[2024-07-01 14:42] LABS: Troponin I < 0.01 ng/ml (0.00-0.034)
[2024-07-01] MEDS: ACETAMINOPHEN 1,000MG/100ML VIAL 1000 MG IV (15:02)
--- NOTE | 2024-07-01 16:28 | PC.NURSE ---
second trop sent for second time due to first one being lost,i called lab and let them know it was being sent
[2024-07-01 17:07] LABS: Troponin I < 0.01 ng/ml (0.00-0.034)
[2024-07-02 06:11] LABS: HCV Ab Non Reactive (Non Reactive)
[2024-07-03 14:00] LABS: HIV Combo NEGATIVE (Negative)
== END 2024-07-01 17:27 | disposition home or self-care (01) ==
PROVIDERS: Physician Assistant; Emergency Provider Emergency Medicine; PCP Family Medicine
DX: R07.9 Chest pain, unspecified (principal); R10.13 Epigastric pain
CPT/HCPCS: 71045; 80053; 83880; 84484; 85025; 85378; 86803; 87389; 93005; 96374; 99284; J0131

== ENCOUNTER 2024-07-08 12:29 | Outpatient (CLI) | payer MEDICARE, MEDICAID, SELFPAY ==
[2024-07-08] MEDS: PROMETHAZINE 50 MG/ML IM (12:48)
[2024-07-08] MEDS: BUTORPHANOL TARTRATE 2 MG/ML VIAL 3 MG IM (12:48)
[2024-07-08 12:50] VITALS: BP 139/82; PULSE 82; RESP 17; TEMP 36.8; O2SAT 95
== END 2024-07-08 12:45 | disposition home or self-care (01) ==
LOC: INF 12:30
PROVIDERS: PCP Family Medicine; Visit Provider Family Medicine
DX: G24.01 Drug induced subacute dyskinesia (principal)
CPT/HCPCS: 96372; J0595; J2550

== ENCOUNTER 2024-08-05 12:04 | Outpatient (CLI) | payer MEDICARE, MEDICAID, SELFPAY ==
[2024-08-05 12:20] VITALS: BP 120/74; PULSE 80; RESP 20; TEMP 36.8; O2SAT 97
[2024-08-05] MEDS: BUTORPHANOL TARTRATE 1 MG/ML VIAL IM (12:20)
[2024-08-05] MEDS: BUTORPHANOL TARTRATE 2 MG/ML VIAL IM (12:20)
[2024-08-05] MEDS: PROMETHAZINE HCL 25MG/ML 1ML VIAL 50 MG IM (12:20)
[2024-08-05 12:50] VITALS: BP 126/69; PULSE 84; RESP 20; O2SAT 97
== END 2024-08-05 12:50 | disposition home or self-care (01) ==
LOC: INF 12:06
PROVIDERS: PCP Family Medicine; Visit Provider Family Medicine
DX: G43.019 Migraine without aura, intractable, without status migrainosus (principal)
CPT/HCPCS: 96372; J0595; J2550

== ENCOUNTER 2024-08-26 16:25 | Outpatient (CLI) | payer MEDICARE, MEDICAID, SELFPAY ==
[2024-08-26] MEDS: BUTORPHANOL TARTRATE 1 MG/ML VIAL (16:33)
[2024-08-26] MEDS: PROMETHAZINE HCL 25MG/ML 1ML VIAL 50 MG (16:33)
[2024-08-26 16:34] VITALS: BP 156/90; PULSE 104; RESP 20; TEMP 36.4; O2SAT 97
[2024-08-26] MEDS: BUTORPHANOL TARTRATE 2 MG/ML VIAL (16:34)
[2024-08-26 17:03] VITALS: BP 149/92; PULSE 98; RESP 20; O2SAT 98
== END 2024-08-26 17:06 | disposition home or self-care (01) ==
LOC: INF 16:27
PROVIDERS: PCP Family Medicine; Visit Provider Family Medicine
DX: G43.019 Migraine without aura, intractable, without status migrainosus (principal)
CPT/HCPCS: 96372; J0595; J2550

== ENCOUNTER 2024-09-30 14:39 | Outpatient (CLI) | payer MEDICARE, MEDICAID, SELFPAY ==
[2024-09-30] MEDS: BUTORPHANOL TARTRATE 2 MG/ML VIAL (14:52)
[2024-09-30] MEDS: BUTORPHANOL TARTRATE 1 MG/ML VIAL (14:52)
[2024-09-30] MEDS: PROMETHAZINE HCL 25MG/ML 1ML VIAL 50 MG (14:53)
[2024-09-30 15:30] VITALS: BP 159/95; PULSE 92; RESP 18; O2SAT 98
== END 2024-09-30 15:35 | disposition home or self-care (01) ==
PROVIDERS: PCP Family Medicine; Visit Provider Family Medicine
DX: G43.019 Migraine without aura, intractable, without status migrainosus (principal)
CPT/HCPCS: 96372; J0595; J2550

== ENCOUNTER 2024-10-28 15:04 | Outpatient (CLI) | payer MEDICARE, MEDICAID, SELFPAY ==
[2024-10-28 15:15] VITALS: BP 164/98; PULSE 91; RESP 19; TEMP 36.6; O2SAT 97
[2024-10-28] MEDS: PROMETHAZINE HCL 25MG/ML 1ML VIAL 50 MG IM (15:15)
[2024-10-28] MEDS: BUTORPHANOL TARTRATE 1 MG/ML VIAL 3 MG IM (15:15)
[2024-10-28 15:45] VITALS: BP 163/91; PULSE 80; RESP 16; TEMP 36.6; O2SAT 99
--- OUTSIDE RECORDS SUMMARY | 2024-10-28 23:38 | XMS_ITS ---
Author Organization Unknown [facility] Start Date Provider Encounter for Check-up [id number] [facility]
== END 2024-10-28 15:45 | disposition home or self-care (01) ==
LOC: INF 15:05
PROVIDERS: PCP Family Medicine; Visit Provider Family Medicine
DX: G43.019 Migraine without aura, intractable, without status migrainosus (principal)
CPT/HCPCS: 96372; J0595; J2550

== ENCOUNTER 2024-12-30 12:40 | Outpatient (CLI) | payer MEDICARE, MEDICAID, SELFPAY ==
--- OUTSIDE RECORDS SUMMARY | 2024-08-27 04:00 | XMS_ITS | Continuity of Care Document ---
Author Organization [facility] Address [address] [place] [address] Phone Care Team Providers Care Paint Mixer Hand Name Role Phone JAMAR ZAMORA MD Unavailable [...] Diagnoses Date Provider Providers Copied on Encounter [facility], [facility], [address] [place] [address], [id number], tel:[phone] [place] OFFICE IDDM (chief complaint)PC O (chief complaint)PV D (chief complaint)op tic disc cupping (chief complaint) Type 1 diabetes mellitus without complication sOther secondary cataract, bilateralVit reous degeneration , left eyeGlaucomat ous optic atrophy, right eye 5 SERA MESSER. [address] [place] [address], [id number], [place]. tel:[phone] Specialist : Dang García MD, [address] [facility] [address], [place], [address]. tel:[phone] OFFICE/OUTPA TIENT VISIT, EST [facility], [facility], [address] [place] [address], [id number], tel:[phone] [place] OFFICE PVD f/u OS (chief complaint) Vitreous degeneration , left eyeOther secondary cataract, bilateral 4 ZINA CHANDLER. [address] [place] [address], [id number], [place]. tel:[phone] [facility], [address] [place] [address], [id number], [place] tel:[phone] [place] [address] OFFICE EOV (chief complaint) Vitreous degeneration , left eye - 4 ZINA CHANDLER. [address] [place] [address], [id number], [place]. tel:[phone] [place] [address] [facility], [address] [place] [address], [id number], [place] [phone] [place] [address] OFFICE Diabetic Eye Exam (chief complaint)PC O (chief complaint)di sc cupping (chief complaint) Type 1 diabetes mellitus without complication sOther secondary cataract, bilateralGla ucomatous optic atrophy, right eye 3 ZAMORA JAMAR. [address] [place] [address], [id number], [place]. tel:[phone] Specialist : Dang García MD, [address] [facility] [address], [place], [address]. tel:[phone] [facility], [facility], [address] [place] [address], [id number], [place] tel:[phone] [place] [address] OFFICE Full Exam (chief complaint)Di abetes (chief complaint) Type 1 diabetes mellitus without complication sGlaucomatou s optic atrophy, right eyeOther secondary cataract, bilateral May- 2 ZAMORA JAMAR. [address] [place] [address], [id number], [place]. tel:[phone] [place] [address] [facility], [address] [place] [address], [id number], [place] tel:[phone] [place] [address] OFFICE Diabetic exam (chief complaint)Co vid screening negative (chief complaint) Type 1 diabetes mellitus without complication sOther secondary cataract, bilateralGla ucomatous optic atrophy, right eye Oct- 1 ZAMORA JAMAR. [address] [place] [address], [id number], [place]. tel:[phone] [facility], [address] [place] [address], [address] [place] [address], tel:[phone] [place] [address] OFFICE Diabetes Examination (chief complaint)PC Fibrosis (chief complaint) Type 1 diabetes mellitus without complication sOther secondary cataract, bilateral 0 ZAMORA JAMAR. [address] [place] [address], [id number], [place]. [phone] [place] [address] [facility], [facility], [address] [place] [address], [address] [place] [address], tel:[phone] [place] [address] OFFICE IDDM (chief complaint)PC Fibrosis (chief complaint) Other secondary cataract, bilateralTyp e 1 diabetes mellitus without complication s 9 ZAMORA JAMAR. [address] [place] [address], [address] [place] [address], [place]. tel:[phone] [place] [address] [facility], [facility], [address] [place] [address], [address] [place] [address], tel:[phone] [place] [address] OFFICE NIDDM (chief complaint)PC Fibrosis (chief complaint) Type 2 diabetes mellitus without complication sOther secondary cataract, bilateral 9-201 8 ZAMORA JAMAR. [address] [place] [address], [id number], [place]. tel:[phone] [place] [address] [facility], [facility], [address] [place] [address], [address] [place] [address], tel:[phone] [place] [address] OFFICE Diabetes Examination (chief complaint)sh ooting pain (chief complaint)h/ o amblyopia (chief complaint) Diabetes Mellitus Type 2, Uncomplicate dAfter-catar act, obscuring visionLens replaced by other meansKeratoc onjunctiviti s sicca, not specified as sjogren's Mar-0 6-201 5 ZAMORA JAMAR. [address] [place] [address], [id number], [place]. tel:[phone] Family History Family Member Type Diagnosis Age [...] colon Payers Payer name Insurance type Covered republican ID Authoriza tion(s) ANTH/Blue Cross Blue [facility] [id number] 2 Social History Type Description Quantity Date [...] Goal Tobacco cessation counseling completed Appointment Citlali Vivsa BOOKED Patient Education [facility]: Anatomy Sketch [...] degeneration, left eye Return in 4 weeks [facility] Eliseo Guo M.D. for Follow up. [...] in vision. Related to After-cataract, obscuring vision Impression/Plan - Di abetes type II: no background retinopathy, no signs of neovascularization noted. Discussed ocular and systemic benefits of blood sugar control. Related to Diabetes Mellitus Type 2, Uncomplicated Follow up - Return i n 1 year with Jamar Zamora M.D. for Full Exam. Related to Diabetes Mellitus Type 2, Uncomplicated Assessments Type Assessment Date assessment Type 1 [...]
--- OUTSIDE RECORDS SUMMARY | 2024-10-28 10:15 | XMS_ITS ---
Author Organization [facility] Address [address] [facility] [address] [id number] Care Team Providers Care Tuber Operator Name Role Phone Samuel Gutierres Primary Care [...] messed with her head Drug Allergy Active Relpax HBP Drug Allergy 05/31/2019 Active quetiapine SEROquel Unknown Drug Allergy Active vilazodone [...] needed 10/07/2024 Active FreeStyle John 14 Day [place] - as directed Active Vyepti 100 MG/ML as directed Intravenous Active Alendronate Sodium 70 mg Take 1 tablet o nce weekly 30 minutes before the first food, beverage or medicine of the day with plain water for 28 Active FreeStyle John 2 Sensor - USE DIRECT ED (CHANGE EVERY 14 D AYS. for 28 Active Ingrezza 80 MG 1 cap(s) orally At B ed Time Active OneTouch Ultra - USE TO TEST 4 TIMES DAILY DIRECTED. Active Diphenoxylate-Atropine 2.5-0.025 MG 1 tab(s) Orally q6h prn diarrhea 08/18/2024 Active OneTouch SureSoft Lancing Dev - four times a day, PRN 12/31/2022 Acti ve Gabapentin 800 MG 1 tab(s) orally 3 ti mes a day for 30 day(s) 09/28/2024 Active BD Pen Needle Micro U/F 32G X 6 MM USE DIRECTED TWICE DAILY. for 50 Active Glucerna Shake - 240 ml [...] Once a day for 30 day(s) Active OneTouch FinePoint Lancets - Four times a day Active NIFEdipine ER 30 MG 1 tab(s) Orally Once a day for 30 day(s) Active Qulipta 60 MG 1 [...] Bed Time for 30 day(s) 10/07/2023 Active Aspirin 325 MG 1 tab(s) orally once a day for 30 day(s) Active Vistaril 25 MG 1 cap(s) orally thre e times a day as needed for 30 days Active Tums 500 MG 2 tablet Orally four times a day as needed 05/06/2023 Active traZODone HCl 150 MG 1 tab(s) orally onc e a day (at bedtime) Active Acetaminophen 325 MG 2 tab(s) Orally q6h prn Active Glucagon Emergency 1 MG as directed Injection 11/1 12/2022 Active Keppra 500 MG 1 tablet Orally Two times a day Active ONE TOUCH GLUCOMETER DIRECTED USE DIRECTED 08/15/2021 Active RelayRidesuch Ultra 2 w/Device as directed 12/31/2022 Active [...] Problem Status W/U Status Risk Notes Problem [id number] Tardive dyskinesia (G24.01) Active confirmed Vital Signs Blood pressure systolic 118 mm Hg 10/29/19 25 Blood pressure diastolic 74 mm Hg 025 Heart Rate 67 /min 10/28/2024 Height 63.50 in 10/28/2024 Weight 136.6 lbs 10/28/2024 BMI 23.82 kg/m2 10/28/2024 Encounters Encounter Location Date Provider Diagnosis [facility] [facility] [address] [place], [place] [id number] 10/28/2024 R Josh Gutierres Intractable periodic headache syndrome G43.C1 ; Type 2 diabetes mellitus with diabetic polyneuropathy E11.42 ; Tardive dyskinesia G24.01 and BMI 23.0-23.9, adult Z68.23 Assessments Encounter Date Diagnosis (ICD Code) Assessment Notes Treatment Notes Treatment Clinical Notes Section Notes 10/28/2024 Intractable periodic headache syndrome (ICD-10 - G43.C1) Order provided for injection of Stadol 3 mg and Phenergan 50 mg IM at [facility] today. Continue with plan of care as outlined by the [facility]. 10/28/2024 Type 2 diabetes mellitus with diabetic polyneuropathy (ICD-10 - E11.42) 10/28/2024 Tardive dyskinesia (ICD-10 - G24.01) 10/28/2024 BMI 23.0-23.9, adult (ICD-10 - Z68.23) Plan Of Treatment Treatment Notes Assessment Notes Intractable periodic headache syndrome O rder provided for injection of Stadol 3 mg and Phenergan 50 mg IM at [facility] today. Next Appt Details Follow Up: 3 Months, Reason: Progress Notes * MATT PITTMAN:1965 (59 yo F)Acc No.[id number]:10/28/2024 Progress Notes Patient: JACI HERNANDEZ Provider: Samuel Gutierres M.D. :1965 A ge:59 Y S ex:Female Date:10/28/2024 Address:[address] [place] [address] Subjective: * Chief Complaints: * 1 . [...] Dr. Barahona 03/25/2017, ORIF R ankle fx/ [facility] 06/2023, Explant of screws from right ankle/ [facility] 07/2023. * Family History: F ather: [...] TOUCH GLUCOMETER DIRECTED USE DIRECTED , Taking Scout AnalyticsTouch Ultra 2 w/Device Kit as directed , [...] needed , Taking FreeStyle John 14 Day [place] - Device as directed , Taking FreeStyle [...] Temp: 98.5, BP: 118/74, HR: 67, Nurse: [facility], Ht: 63.50, BMI:23.82. * Examination: G eneral Examination: General Appearance: S he is photophobic. Neck: N o meningismus. Heart: R SR. Lungs: c lear to auscultation. Neurologic Exam: n o focal deficits. Facial movements and lip smacking worse today. Extremities: n o leg edema. . Assessment: * Assessment: 1. I ntractable periodic headache syndrome - G43.C1 (Primary) 2 . T ype 2 diabetes mellitus with diabetic polyneuropathy - E11.42 3 . T ardive dyskinesia - G24.01 4 . B [place] 23.0-23.9, adult - Z68.23 Plan: * Treatment: * Procedure Codes: G 2211 Complex e/m visit add on, G8752 MOST RECENT SYSTOLIC BP < 140MM HG, G8754 MOST RECENT DIASTOLIC BP < 90MM HG * Follow Up: 3 Months * Billing Information: * Visit Code: 46189 Office Visit, Est Pt., Level 3. * Procedure Codes: G2211 Complex e/m visit add on. G8752 MOST RECENT SYSTOLIC BP < 140MM HG. G8754 MOST RECENT DIASTOLIC BP < 90MM HG. * Electronic signature of Samuel Gutierres MD on 12/30/2024 at 01:37 PM EDT Sign off status: Pending * Provider: Samuel Gutierres M.D. Date: 0 10/28/2024 Generated for Smithi nawaf/Mendy/eTransmitting on: 0 12/30/2024 01:37 PM EDT History and Physical Notes * [...]
--- OUTSIDE RECORDS SUMMARY | 2024-11-01 12:30 | XMS_ITS | Encounter Summary ---
Author Organization Healthcare Address [address] [place] [address] Care Team Providers Care Stock Controller Name Role Phone Vasu Gutierres MD Primary Care Provider [phone]- [phone] Reason for Referral * Other Medical (Routine) - Pending Review Specialty Diagnoses / Procedures Referred By Contac t Referred To Contact Diagnoses Migraine without aura and without status migrainosus, not intractable Procedures Botox Migraine Sweetie Hewitt PA [address] [address] Phone: tel: fax: Referral ID Status Reason Start Date Expiration Date V isits Requested Visits Authorized [id number] Pending Review 11/01/2024 05/03/2026 1 1 * Clinic-Administered Medication (Routine) - Authorized Specialty Diagnoses / Procedures Referred By Contac t Referred To Contact Diagnoses Migraine without aura and without status migrainosus, not intractable Procedures CO INJECTION,ONABOTULINUMTOXINA Sweetie Hewitt PA [address] [address] Phone: tel: fax: Referral ID Status Reason Start Date Expiration Date V isits Requested Visits Authorized [id number] Authorized 11/01/2024 05/03/2026 1 3 Reason for Visit * Other Medical (Routine) - Authorized Specialty Diagnoses / Procedures Referred By Contac t Referred To Contact Neurology Diagnoses Migraine without aura and without status migrainosus, not intractable Procedures Botox Migraine Sweetie Hewitt PA [id number] [place] [address] Phone: tel: fax: Referral ID Status Reason Start Date Expiration Date V isits Requested Visits Authorized [id number] Authorized 07/29/2024 01/28/2026 1 3 Encounter Details Date Type Department Care Team (Late st Contact Info) Description 11/01/2024 12:30 PM EDT Procedure Visit [place] [facility] [address] [place] [address] Sweetie Hewitt PA [id number] [place] [address] Migraine without aura and without status migrainosus, not intractable (Primary Dx) Social History Tobacco Use Types Packs/Day Years Used Date Smoking Tobacco: Every Day Cigarettes Smokeless Tobacco: Never Alcohol Use Standard Drinks/Week Comments Never 0 (1 standard drink = 0.6 oz pur e alcohol) Comments Unknown Sex and Gender Information Value Date Recorded Sex Assigned at Not on file Legal Sex Female 8:58 PM EDT Gender Identity Not on file Sexual Orientation Not on file documented as of this encounter Last Filed Vital Signs Vital Sign Reading Time Taken Comments Blood Pressure 122/76 11/01/2024 12:31 PM EDT Pulse 62 11/01/2024 12:31 PM EDT Temperature - - Respiratory Rate - - Oxygen Saturation 97% 11/01/2024 12:31 PM EDT Inhaled Oxygen Concentration - - Weight 63.1 kg (139 lb 1.8 oz) 11/01/2024 12:31 PM EDT Height - - Body Mass Index 22.45 09/28/2024 10:33 AM EDT documented in this encounter Miscellaneous Notes * Progress Notes - Sweetie Hewitt PA - 11/01/2024 12:30 PM EDT Patient ID: Citlali Maravilla is a 59 y.o. female. Procedures Patient ID: Botox Migraine Performed by: MECHE Mena Authorized by: MECHE Mena Consent: Consent obtained: Written Consent given by: Patient Risks discussed: Poor cosmetic result, pain, infection and bleeding Procedure details: Toxin (Brand): OnaBoNT-A (Botox) Total units available: 200 Right frontalis: 10 units divided amongst 2 site(s) Left frontalis: 10 units divided amongst 2 site(s) Right hand ornament maker: 5 units divided amongst 1 site(s) Left hand ornament maker: 5 units divided amongst 1 site(s) Procerus (midline): 5 units divided amongst 1 site(s) Right occipitalis: 15 units divided amongst 3 site(s) Left occipitalis: 15 units divided amongst 3 site(s) Right cervical paraspinal: 10 units divided amongst 2 site(s) Left cervical paraspinal: 10 units divided amongst 2 site(s) Right trapezius: 15 units divided amongst 3 site(s) Left trapezius: 15 units divided amongst 3 site(s) Right temporalis: 20 units divided amongst 4 site(s) Left temporalis: 20 units divided amongst 4 site(s) Total units injected: 155 Total units wasted: 45 Post-procedure details: Patient tolerance of procedure: Tolerated well, no immediate complications CHEMODENERVATION OF HEAD AND NECK FOR MIGRAINE Diagnosis: Intractable Chronic Migraine without Aura and without Status Migrainosus [G43.719] Treatment Number: 2 Headache days this month: 25 Headache days prior to Botox: 30 Headache hours per day: 4-24 Medications tried: Qulipta 60 mg once daily (current, effective), stadol + promethazine injections (as needed, effective), Emgality (failed), Aimovig (failed), Botox injections (has tried in the pastwith some success), desvenlafaxine 100 mg nightly, gabapentin 800 mg TID, tizanidine 4 mg Headaches have improved, therefore the use of Botulinum toxin is medically indicated and justified. documented in this encounter Plan of Treatment Upcoming Encounters Date Type Department Care Team (Late st Contact Info) Description 02/03/2025 10:00 AM EDT Procedure Visit [facility] [address] [place] [id number] Sweetie Heiwtt, PA [address] [place] [address] 02/24/2025 10:00 AM EDT Appointment [facility] [address] [place] [address] 04/04/2025 10:40 AM EDT Office Visit [facility] [address] [place] [phone] Sweetie Hewitt, PA [address] [place] [address] Scheduled Orders Name Type Priority Associated Diagnoses Orde r Schedule Botox Migraine Procedures Routine Migraine without aura and without status migrainosus, not intractable Expected: 01/25/2025, Expires: 10/26/2025 documented as of this encounter Visit Diagnoses Diagnosis Migraine without aura and without status migrainosus, not intractable- Primary documented in this encounter Administered Medications Inactive Administered Medications - up to 3 most recent administrations Medication Order MAR Action Action Date Dose Rate Site onabotulinumtoxinA (Botox) injection 200 Units 200 Units, Intramuscular, Once, 1 dose, On Fri11/01/24 at 1330, RoutineIndications:Migraine without aura and without status migrainosus, not intractable Given by Other 11/01/2024 12:49 PM EDT 155 Units Other documented in this encounter Additional Health Concerns Assessment Noted Time A fall risk assessment has been complete d for the patient 11/01/2024 12:34 PM EDT A Body Mass Index follow-up plan has been documented for the patient 11/01/2024 1:49 PM EDT documented as of this encounter Care Teams Stock Controller Relationship Specialty Start Date End Date Vasu Gutierres MD [address] [place] [address] PCP - General 05/19/24 documented as of this encounter
--- OUTSIDE RECORDS SUMMARY | 2024-12-02 09:58 | XMS_ITS | Encounter Summary ---
Author Organization Healthcare Address [address] [place] [address] Care Team Providers Care Bicycle Subassembler Name Role Phone Vasu Gutierres MD Primary Care Provider [phone] Reason for Visit * Episode Based Medications (Routine) - Authorized Specialty Diagnoses / Procedures Referred By Contac t Referred To Contact Infusion Clinic Diagnoses Migraine without aura and without status migrainosus, not intractable Procedures [place] INJ. EPTINEZUMAB-JJMR 1 MG Sweetie Hewitt PA [address] [place] [address] Phone: tel: fax: [facility] [address] [place] [phone] Phone: tel: fax: Referral ID Status Reason Start Date Expiration Date V isits Requested Visits Authorized [id number] Authorized 05/19/2024 11/18/2025 1 5 Encounter Details Date Type Department Care Team (Latest Contact Info) Description 12/02/2024 9:58 AM EDT - 12/02/2024 11:59 PM EDT Hospital Encounter [facility] [address] [address] Migraine without aura and without [...] 1 (one) time each day. Continuous Glucose Drafter Refrigeration (FreeStyle John 14 Day [place]) device 07/02/2023 Continuous Glucose Sensor (FreeStyle John 2 Sensor) [facility] USE DIRECTED (CHANGE EVERY 14 D AYS. [...] 800 MG tablet as needed. 08/18/2024 Lancets (KaChing!Touch Delica Plus [id number]) misc 4 (four) times a day. 05/04/2024 [...] TAKE (1) CAPSULE BY MOUTH EVERY DAY. Corimmun Ultra Test test strip USE TO TEST [...] from the original note were not included. [id number] Eptinezumab-[facility] Injection Brand Name(s): Pia?? WHY is this [...] or doctor for a copy of the cellular phone repairer's information for the patient. Are there OTHER [...] be awakened, immediately call emergency services at [phone]. What OTHER INFORMATION should I know? Keep all appointments with your doctor. You should keep a headache diary by writing down when you have headaches. Be sure to share this information with your doctor. It is important for you to keep a written list of all of the prescription and nonprescription (pusr-tqd-zqfqesv) medicines you are taking, as well as [...] or pharmacist about specific clinical use. The [place] [employer] represents that the information provided hereunder was formulated with a reasonable standard of care, and in conformity with professional standards in the field. The [place] makes no representations or warranties, express or implied, including, but not limited to, any implied warranty of merchantability and/or fitness for a particular purpose, with respect to such information and specifically disclaims all such warranties. Users are advised that decisions regarding drug therapy are complex medical decisions requiring the independent, informed decision of an appropriate health rn urgent care, and the information is provided for informational purposes only. The entire monograph for a drug should be reviewed for a thorough understanding of the drug's actions, uses and side effects. The [place] does not endorse or recommend the use of any drug.The information is not a substitute for medical care. AHFS?? Patient Medication Information?. ?? Copyright, 2023. The [place]??, [address], [address], [place], [place]. All Rights Reserved. Duplication for commercial use must be authorized by [facility]. Selected Revisions: November 03, 2019. AHFS?? Patient [...] 02/03/2025 10:00 AM EDT Procedure Visit [facility] [address] [place] [address] Sweetie Hewitt PA [address] [place] [address] 02/24/2025 10:00 AM EDT Appointment [facility] [address] [place] [address] 04/04/2025 10:40 AM EDT Office Visit [facility] [address] [place] [address] Sweetie Hewitt PA [address] [place] [address] documented as of this encounter Visit Diagnoses [...] documented as of this encounter Care Teams Bicycle Subassembler Relationship Specialty Start Date End Date Vasu Gutierres MD [address] [place] [address] PCP - General 05/19/24 documented as of this encounter
[2024-12-30] MEDS: BUTORPHANOL TARTRATE 1 MG/ML VIAL (13:09)
[2024-12-30] MEDS: PROMETHAZINE HCL 25MG/ML 1ML VIAL 50 MG (13:09)
[2024-12-30] MEDS: BUTORPHANOL TARTRATE 2 MG/ML VIAL (13:10)
[2024-12-30 13:15] VITALS: BP 124/86; PULSE 81; RESP 17; O2SAT 100
--- OUTSIDE RECORDS SUMMARY | 2024-12-30 13:36 | XMS_ITS | Clinical Summary ---
Author Organization [facility] Address [address] [place] [address] Phone Care Team Providers Care Cabinet Installer Name Role Phone Gilmar COFFEY, Luigi Huitron [...] right tibia, subsequent encounter Cellulitis, foot, right [id number] (SNOMED CT) 09/08 Active 09/08 Jaylene Mays Cellulitis of lower limb Infection, local skin/subcuta neous tissue 207922139 (SNOMED CT) 09/08 Active 09/08 Jaylene Davon Localized infection of skin AND/OR subcutaneous tissue CKD III(document a or b) 345634186 (SNOMED CT) 09/08 Active 09/08 Jaylene Davon Chronic kidney disease stage 3A Acute renal failure with tubular necrosis [id number] (SNOMED CT) 09/08 Active 09/08 Jaylene Davon Acute renal failure due to tubular necrosis Elevation of levels of liver transaminase levels 317181323 (SNOMED CT) 09/08 Active 09/08 Jaylene Davon Elevated level of transaminase and lactic acid dehydrogenase Alkaline phosphatase, elevated 855106125 (SNOMED CT) 09/08 Active 09/08 Jaylene Mays Alkaline phosphatase above reference range Anemia due to acute blood loss 467968704 ([facility] CT) 09/08 Active 09/08 Jaylene Mays Acute posthemorrhagic anemia Anemia in CKD D63.1 (ICD-10-CM) 09/08 Active 09/08 Jaylene Mays Anemia in chronic kidney disease DM Type II E11.9 (ICD-10-CM) 09/08 Active 09/08 Jaylene Mays Type 2 diabetes mellitus without complications Benign Essential Hypertension 27557253 ([facility] CT) 09/08 Active 09/08 Jaylene Mays Benign hypertension Medications Medication Instructions Start Date Stop Date Generic Name [facility] Provider aztreonam vaibhav judd Aztreonam 2G IV [id number] [place] 09/15 aztreonam recon binta Wolfe RN Cubicin RF (daptomycin) recon binta Cubicin 650mg IV [id number] [place] 09/15 daptomycin Kamila Wolfe RN NIFEDIPINE ER 30 MG [id number] Take 1 tablet by mouth once a day nifedipine 11718049893 Janay Manrique LISINOPRIL 40 MG TABS Take 1 tablet by mouth once a day lisinopril 22602099457 Janay Manrique QULIPTA 60 MG TABS Take 1 tablet by mouth atogepant 43942708068 Janay Manrique ACETAMINOPHEN 500 MG TABS Take 1 tablet by mouth every six hours as needed acetaminophen 86789111972 Janay Manrique insulin detemir (LEVEMIR) 100 UNIT/ML injection Inject 5 unit subcutaneously every morning as directed LEVEMIR Janay Manrique ACETAMINOPHEN 325 MG TABS Take 2 tablet by mouth every six hours as needed acetaminophen 28463506090 Janay Manrique HYDROXYZINE PAMOATE 25 MG CAPS Take 1 capsule by mouth three times a day as needed hydroxyzine pamoate 80713304185 Janay Manrique LEVETIRACETAM 500 MG TABS Take 1 tablet by mouth every twelve hours levetiracetam 78686718852 Janay Manrique ASPIRIN 325 MG TABS Take 1 tablet by mouth once a day aspirin 18330041523 Janay Manrique PEG 3350 17 GM PACK Take 17 gram by mouth once a day polyethylene glycol 3350 64343995449 Janay Manrique CYCLOBENZAPRINE HCL 5 MG TABS Take 1 tablet by mouth three times a day as needed cyclobenzaprine 46620241966 Janay Manrique ENOXAPARIN SODIUM 40 MG/0.4ML SOSY Inject 0.4 ml subcutaneously once a day as directed 11/02 enoxaparin 09950211957 Janay Manrique ATORVASTATIN CALCIUM 80 MG TABS Take 1 tablet by mouth every night atorvastatin 90889393350 Janay Manrique PROCHLORPERAZINE EDISYLATE 10 MG/2ML SOLN 2 ml every eight hours as needed prochlorperazine edisylate 89290320999 Janay Manrique INSULIN LISPRO 100 UNIT/ML SOLN Inject 2-7 unit subcutaneously four times a day as directed insulin lispro 46983045124 Janay Manrique SENNOSIDES-DOCUSAT E SODIUM 8.6-50 MG TABS Take 2 tablet by mouth twice a day as needed sennosides-docusa te sodium 80652993092 Janay Manrique PROMETHAZINE HCL 25 MG TABS Take 1 tablet by mouth every six hours as needed promethazine 11705630906 Janay Manrique Valbenazine Tosylate 80 MG capsule Take 1 capsule by mouth once a day Valbenazine Tosylate 80 MG capsule Janay Manrique TRAZODONE HCL 150 MG TABS Take 3 tablet by mouth every night trazodone 49902079461 Janay Manrique DOCUSATE SODIUM 100 MG CAPS Take 1 capsule by mouth twice a day 09/18 docusate sodium 73139256888 Janay Manrique OMEPRAZOLE 40 MG CPDR Take 1 capsule by mouth once a day omeprazole 21905960347 Janay Burton CETIRIZINE HCL 10 MG TABS Take 1 tablet by mouth once a day cetirizine 32897447272 Janay Manrique MELATONIN 5 MG TABS Take 1 tablet by mouth every night as needed melatonin 98037005417 Janay Manrique LIDOCAINE PAIN RELIEF MAX ST 4 % PTCH Place 1 patch once a day as directed lidocaine 32726062862 Janay Manrique DESVENLAFAXINE SUCCINATE ER 100 MG [id number] Take 2 tablet by mouth once a day desvenlafaxine succinate 11856139269 Janay Manrique DOXYCYCLINE HYCLATE 100 MG CAPS Take 1 capsule by mouth twice a day 09/28 doxycycline hyclate 42293760715 Janay Burton ALENDRONATE SODIUM 70 MG TABS Take 1 tablet by mouth once a week alendronate 22096257524 Janay Manrique Cubicin RF (daptomycin) recon soln Cubicin 650mg [id number] daptomycin Kamila Wolfe RN aztreonam recon solmeseret Aztreonam 2G IV g[facility]eat[facility] 09/15 aztreonam recon soln Kamila Wolfe RN Valbenazine Tosylate 80 MG capsule Take 1 capsule by mouth Daily. 09/15 Valbenazine Tosylate 80 MG capsule QIE qieuser TRAZODONE HCL 150 MG TABS Take 3 tablets by mouth Every Night. 09/15 trazodone 07211026226 QIE qieuser SENNOSIDES-DOCUSAT E SODIUM 8.6-50 MG TABS Take 2 tablets by mouth 2 (Two) Times a Day As Needed for Constipation. sennosides-docusa te sodium 97989767664 QIE qieuser PROMETHAZINE HCL 25 MG TABS Take 1 tablet by mouth Every 6 (Six) Hours As Needed for Nausea or Vomiting. 09/15 promethazine 40078851660 QIE qieuser PROCHLORPERAZINE EDISYLATE 10 MG/2ML SOLN Infuse 2 mL into a venous catheter Every 8 (Eight) Hours As Needed (headache/migrai ne (give with iv benadryl)). 09/15 prochlorperazine edisylate 79173834860 QIE qieuser PEG 3350 17 GM PACK Take 17 g by mouth Daily. 09/15 polyethylene glycol 3350 38440239423 QIE qieuser ONETOUCH ULTRA STRP null blood sugar diagnostic 53273697002 QIE qieuser OMEPRAZOLE 40 MG CPDR Take 1 capsule by mouth Daily. 09/15 omeprazole 17120035427 QIE qieuser NIFEDIPINE ER 30 MG [id number] Take 1 tablet by mouth Daily. 09/15 nifedipine 48182088681 QIE qieuser NICOTINE STEP 1 21 MG/24HR PT24 null nicotine 98523227077 QIE qieuser MELATONIN 5 MG TABS Take 1 tablet by mouth At Night As Needed (insomnia). 09/15 melatonin 44696109224 QIE qieuser LISINOPRIL 40 MG TABS Take 1 tablet by mouth Daily. 09/15 lisinopril 48180207868 QIE qieuser LIDOCAINE PAIN RELIEF MAX ST 4 % PTC Place 1 patch on the skin as directed by provider Daily. Remove & Discard patch within 12 hours or as directed by 09/15 lidocaine 57064947753 QIE qieuser LEVETIRACETAM 500 MG TABS Take 1 tablet by mouth Every 12 (Twelve) Hours. 09/15 levetiracetam 85009305184 QIE qieuser ONETOUCH DELICA PLUS [id number] null lancets 25198909886 QIE qieuser INSULIN LISPRO 100 UNIT/ML SOLN Inject 2-7 Units under the skin into the appropriate area as directed 4 (Four) Times a Day Before Meals & at Bedtime. 09/15 insulin lispro 88122895766 QIE qieuser insulin detemir (LEVEMIR) 100 UNIT/ML injection Inject 5 Units under the skin into the appropriate area as directed Every Morning. 09/15 LEVEMIR QIE qieuser HYDROXYZINE PAMOATE 25 MG CAPS Take 1 capsule by mouth 3 (Three) Times a Day As Needed for Itching. 09/15 hydroxyzine pamoate 60271237106 QIE qieuser GABAPENTIN 400 MG CAPS Take 2 capsules by mouth Every 8 (Eight) Hours for 4 days. 09/08 gabapentin 98608167698 QIE qieuser ENOXAPARIN SODIUM 40 MG/0.4ML SOSY Inject 0.4 mL under the skin into the appropriate area as directed Daily for 60 days. 11/02 enoxaparin 18789588694 QIE qieuser DOXYCYCLINE HYCLATE 100 MG CAPS Take 1 capsule by mouth 2 (Two) Times a Day for 14 days. 09/28 doxycycline hyclate 21558545000 QIE qieuser DOCUSATE SODIUM 100 MG CAPS Take 1 capsule by mouth 2 (Two) Times a Day for 15 days. 09/18 docusate sodium 22427050379 QIE qieuser DESVENLAFAXINE SUCCINATE ER 100 MG AT84G-FHG Take 2 tablets by mouth Daily. 09/15 desvenlafaxine succinate 01785963490 QIE qieuser CYCLOBENZAPRINE HCL 5 MG TABS Take 1 tablet by mouth 3 (Three) Times a Day As Needed for Muscle Spasms. 11/30 cyclobenzaprine 13100527668 QIE qieuser CETIRIZINE HCL 10 MG TABS Take 1 tablet by mouth Daily. 09/15 cetirizine 81874147586 QIE qieuser ANTACID CALCIUM 500 MG CHEW null calcium carbonate 68116673571 QIE qieuser BD PEN NEEDLE MICRO U/F 32G X 6 MM null pen needle, diabetic 98214181782 QIE qieuser ATORVASTATIN CALCIUM 80 MG TABS Take 1 tablet by mouth Every Night. 09/15 atorvastatin 85008579509 QIE qieuser QULIPTA 60 MG TABS Take 1 tablet by mouth. 09/15 atogepant 01636704101 QIE qieuser ASPIRIN 325 MG TABS Take 1 tablet by mouth Daily. 09/15 aspirin 45344956438 QIE qieuser ALENDRONATE SODIUM 70 MG TABS Take 1 tablet by mouth Every 7 (Seven) Days. 09/15 alendronate 90772443629 QIE qieuser ACETAMINOPHEN 500 MG TABS Take 1 tablet by mouth Every 6 (Six) Hours As Needed for Mild Pain. 09/15 acetaminophen 56925133509 QIE qieuser ACETAMINOPHEN 325 MG TABS Take 2 tablets by mouth Every 6 (Six) Hours As Needed for Mild Pain. 09/15 acetaminophen 73004839132 QIE qieuser Medications Administered No information available. Allergies, Adverse Reactions, Alerts Allergy Name Reaction Description Start Date Severity Statu s Provider SULFA ANTIBIOTICS Critical Active A ngela Fu ASPARTAME (FOR COMPOUNDING) Critical A ctive Sherly Fu ONDANSETRON Critical Active Sherly Fu VIIBRYD Critical Active Sherly Fu KETOROLAC TROMETHAMINE Critical Active Sherly Fu IMITREX Critical Active Sherly Fu REGLAN [...] Date Name Value Unit Range Flag Description Clinical Lists Update: Prelo ad VAPE_USE Never Tobacco smok ing status Chart Maintenance BILI TOTAL <0.2 mg/dL Bilirubin. [...] Procedures Code Procedure Name Date Entry Date [id number] CBC with Differential 2023 CPT-42563 C- reactive protein CPT-sl [facility] [id number] CBC with Differential 2023 CPT-15976 C- reactive protein [id number], [id number] CPK CPT-29424 Sedimentation Rate (ESR) 202 10/20/22 CPT-53807 CMP Vital Signs Date Name Value Unit [...] Weight Measured 146.38 [lb_av] weight E& M Weight Measured 146.38 [lb_av] weight E& M Immunizations No information available. Advance Directives No information available.
--- OUTSIDE RECORDS SUMMARY | 2024-12-30 13:37 | XMS_ITS | Encounter Summary ---
Author Organization Healthcare Address [address] [place] [address] Care Team Providers Care Plywood And Veneer Repairer Name Role Phone Vasu Gutierres MD Primary Care Provider [phone]- [phone] Encounter Details Date Type Department Care Team (Latest Contact Info) Description 12/02/2024 Travel Social History Tobacco Use Types Packs/Day Years [...] on file documented as of this encounter Plan of Treatment Upcoming Encounters Date Type Department Care Team (Late st Contact Info) Description 02/03/2025 10:00 AM EDT Procedure Visit [place] [facility] [address], [address] [place] [address] Sweetie Hewitt PA [address] [place] [address] 02/24/2025 10:00 AM EDT Appointment [facility] [address] [place] [address] 04/04/2025 10:40 AM EDT Office Visit [place] [facility] [address] [place] [address] Sweetie Hewitt PA [address] [place] [address] documented as of this encounter Visit Diagnoses Not on filedocumented in this encounter Additional Health Concerns Assessment Noted Time A fall risk assessment has been complete d for the patient 12/02/2024 10:04 AM EDT A Body Mass Index follow-up plan has been documented for the patient 12/02/2024 10:09 AM EDT documented as of this encounter Care Teams Plywood And Veneer Repairer Relationship Specialty Start Date End Date Vasu Gutierres MD [address] [place] [address] PCP - General 05/19/24 documented as of this encounter
--- OUTSIDE RECORDS SUMMARY | 2024-12-30 13:37 | XMS_ITS | Encounter Summary ---
Author Organization Healthcare Address [address] [place] [address] Care Team Providers Care Dental Assistant Name Role Phone Vasu Gutierres MD Primary Care Provider +1- [phone] Encounter Details Date Type Department Care Team (Late st Contact Info) Description 12/15/2024 Telephone [place] [facility] [address] [place] [address] Sweetie Hewitt, PA [address] [place] [address] Social History Tobacco Use Types Packs/Day Years [...] on file documented as of this encounter Miscellaneous Notes * Telephone Encounter - Luis Guzman - 12/20/2024 12:29 PM EDT Sunday decided to keep original appt * Telephone Encounter - Tina Cobian - 12/15/2024 11:53 AM EDT Patient Phone Message Reason for Call: Sunday is calling from the facility she is at and needs to reschedule the January to anotherday. Needs the or and needs to be a Friday. Please advise. Best contact number and optimal time of day to reach caller: [phone] Note: Please do not reply to this message. Follow-up communication and further actions as a result of this message need to be communicated with the patient directly, if the patient is not active on MyChart. If the patient is active on MyChart, they will receive notification of the communication/outcome via DataPop. documented in this encounter Plan of Treatment Upcoming Encounters Date Type Department Care Team (Late st Contact Info) Description 02/03/2025 10:00 AM EDT Procedure Visit [facility] [address] [place] [address] Sweetie Hewitt PA [address] [place] [address] 02/24/2025 10:00 AM EDT Appointment [facility] [address] [place] [address] 04/04/2025 10:40 AM EDT Office Visit [facility] [address] [place] [address] Sweetie Hewitt PA [address] [place] [address] documented as of this encounter Visit Diagnoses Not on filedocumented in this encounter Additional Health Concerns Assessment Noted Time A fall risk assessment has been complete d for the patient 12/02/2024 10:04 AM EDT A Body Mass Index follow-up plan has been documented for the patient 12/02/2024 10:09 AM EDT documented as of this encounter Care Teams Dental Assistant Relationship Specialty Start Date End Date Vasu Gutierres MD [address] [place], [place] [address] PCP - General 05/19/24 documented as of this encounter
--- OUTSIDE RECORDS SUMMARY | 2024-12-30 13:37 | XMS_ITS | Encounter Summary ---
Author Organization Healthcare Address [address] [place] [address] Care Team Providers Care Apprenticeship Training Representative Name Role Phone Vasu Gutierres MD Primary Care Provider +1- [phone] Encounter Details Date Type Department Care Team (Late st Contact Info) Description 12/14/2024 Telephone [place] [facility] [address] [place] [address] Sweetie Hewitt, PA [address] [place] [address] Social History Tobacco Use Types [...] * Telephone Encounter - Luis Guzman - 12/14/2024 2:31 PM EDT Spoke with genna, she is going to call back. * Telephone Encounter - Tina Cobian - 12/14/2024 12:31 PM EDT Patient Phone Message Reason for Call: Genna is calling and needs to reschedule Botox to 01/31 or 02/07.she asks for a call Please advise. Best contact number and optimal time of day to reach caller: [phone] Note: Please do not reply to this message. Follow-up communication and further actions as a result of this message need to be communicated with the patient directly, if the patient is not active onMyChart. If the patient is active on MyChart, they will receive notification of the communication/outcome via MyChart. documented in this encounter Plan of Treatment Upcoming Encounters Date Type Department Care Team (Late st Contact Info) Description 02/03/2025 10:00 AM EDT Procedure Visit [facility] [address] [place] [address] Sweetie Hewitt, PA [address] [place] [address] 02/24/2025 10:00 AM EDT Appointment [facility] [address] [place] [address] 04/04/2025 10:40 AM EDT Office Visit [facility] [address] [place] [address] Sweetie Hewitt PA [address] [place] [address] documented as of this encounter Visit Diagnoses Not on filedocumented in this encounter Additional Health Concerns Assessment Noted Time A fall risk assessment has been complete d for the patient 12/02/2024 10:04 AM EDT A Body Mass Index follow-up plan has been documented for the patient 12/02/2024 10:09 AM EDT documented as of this encounter Care Teams Apprenticeship Training Representative Relationship Specialty Start Date End Date Vasu Gutierres MD [address] [place] [address] PCP - General 05/19/24 documented as of this encounter
--- OUTSIDE RECORDS SUMMARY | 2024-12-30 13:37 | XMS_ITS | Encounter Summary ---
Author Organization Healthcare Address [address] [place] [address] Care Team Providers Care College Or University Faculty Member Name Role Phone Pcp, No Primary Care Provider Vasu Be MD Primary Care Provider +1- [phone] Reason for Referral * Consultation (Routine) - Closed Specialty Diagnoses / Procedures Referred By Contac t Referred To Contact Neurology Diagnoses Chronic intractable headache, unspecified headache type Tardive dyskinesia History of drug abuse History of stroke Major depression in remission (CMS/[facility]) Mira Dolan MD [address] [place] [address] [place] [address] Phone: tel: fax: Luis Armando Weeks MD [address] [place] [address] Phone: tel: fax: Referral ID Status Reason Start Date Expiration Date V isits Requested Visits Authorized [id number] Closed Specialty Services Required 03/05/2022 09/04/2023 1 1 Encounter Details Date Type Department Care Team (Late st Contact Info) Description 03/05/2022 [facility] [address] [place] [address] Mira Dolan MD [address] [place] [place] [address] Chronic intractable headache, unspecified headache type (Primary Dx); Tardive syndrome; Tardive dyskinesia; History of drug abuse (CMS/HCC); History of stroke; Major depression in remission ([facility]) Social History Tobacco Use Types Packs/Day Years Used Date Smoking Tobacco: Never Assessed Comments Unknown Sex and Gender Information Value Date Recorded Sex Assigned at Not on file Legal Sex Female 8:58 PM EDT Gender Identity Not on file Sexual Orientation Not on file documented as of this encounter Plan of Treatment Upcoming Encounters Date Type Department Care Team (Late st Contact Info) Description 02/03/2025 10:00 AM EDT Procedure Visit [facility] [address] [place] [address] Sweetie Hewitt PA [address] [place] [address] 02/24/2025 10:00 AM EDT Appointment [facility] [address] [place] [address] 04/04/2025 10:40 AM EDT Office Visit [facility] [address] [place] [address] Sweetie Hewitt PA [address] [place] [address] Scheduled Referrals Name Type Priority Associated Diagnoses Orde r Schedule Ambulatory referral to Neurology Outpatient Referral Routine Chronic intractable headache, unspecified headache type Tardive dyskinesia History of drug abuse (CMS/HCC) History of stroke Major depression in remission ([facility]) Ordered: 03/05/2022 documented as of this encounter Visit Diagnoses Diagnosis Chronic intractable headache, unspecified headache type- Primary Tardive syndrome Orofacial dyskinesia Tardive dyskinesia Subacute dyskinesia due to drugs History of drug abuse Other, mixed, or unspecified nondependent drug abuse, in remission History of stroke Transient ischemic attack (TIA), and cerebral infarction without residual deficits Major depression in remission (CMS/HCC) Major depressive disorder, single episode in full remission documented in this encounter Care Teams College Or University Faculty Member Relationship Specialty Start Date End Date Pcp, Radha [address] [place] [address] PCP - General Family Medicine 06/04/23 05/18/24 Vasu Gutierres MD [address] [place] [address] PCP - General 05/19/24 documented as of this encounter
--- OUTSIDE RECORDS SUMMARY | 2024-12-30 13:37 | XMS_ITS | Patient Health Record ---
[facility] [address] [facility] [address] [place], [place] [id number] Care Team Providers Care Machinery Erector Name Role Phone Samuel Gutierres Primary Care Provider Paulino Lombardi Unavailable [phone] Allergies Allergen (clinical drug ingredient) Drug/Non Drug [...] (substance) Sulfa Antibiotics itching Drug Allergy Active Results Component Value Reference Range Notes P-Lipid Panel Reviewed date:07/06/2024 08:31:07 AM Interpretation:Normal Performing Lab: Notes/Report: Test performed by [facility] , [address], [place] [address] Augustus Lee MD, Automotive Parts Counter Assistant CLIA: [id number] Cholesterol 159 <200 mg/dL Triglycerides 125 <150 mg/dL HDL Cholesterol 60 >39 mg/dL Cholesterol / HDL Ratio 2.65 0.00-4.44 Ratio Non-HDL Cholesterol 99 <130 mg/dL LDL Cholesterol (Calculation) 74 <130 mg/dL LDL Cholesterol Levels* Less than 100 mg/dL Optimal 100 to 129 mg/dL Near Optimal/ Above Optimal 130 to 159 mg/dL Borderline High 160 to 189 mg/dL High 190 mg/dL and above Very High * Categories as recommended by the 2004 ATPIII guidelines LDL/HDL Ratio 1.2 <3.3 Ratio LDL Cholesterol Patient History Test Date: 07/01/2024 LDL Results: 74 Units: mg/dL % Change: - Glycohemoglobin A1c (in hous e) Reviewed date:07/06/2024 08:31:07 AM Interpretation:7.6% Performing Lab: Notes/Report: 7.6% glycohemoglobin 7.6% 5 - 6.5 % P-Comprehensive Metabolic Pa [place] (CMP) Reviewed date:07/06/2024 08:31:07 AM Interpretation:gluc 173, Cr 1.22, gfr 50 Performing Lab: Notes/Report: Test performed by [facility] [address] [place] [address] , [address], [place] [address] Augustus Lee MD, Automotive Parts Counter Assistant CLIA: [id number] Sodium 138 135-145 mmol/L Potassium 4.1 3.5-5.3 mmol/L Chloride 104 97-108 mmol/L CO2 22 22-32 mmol/L Glucose 173 65-99 mg/dL BUN 21 8-23 mg/dL Creatinine 1.22 0.50-1.00 mg/dL Calcium 9.8 8.6-10.4 mg/dL eGFR by Creatinine 50 >59 mL/min/1.73m2 Protein 7.2 6.0-8.3 g/dL Albumin 4.5 3.5-5.3 g/dL Alkaline Phosphatase 106 35-121 IU/L ALT (SGPT) 21 <5-47 IU/L AST (SGOT) 16 <5-40 IU/L Bilirubin, Total 0.3 <0.2-1.2 mg/dL A/G Ratio 1.7 1.1-2.5 Medications Medication SIG (Take, Route, Frequency, Duration) Notes Start Date End Date Status Vyepti 100 MG/ML as directed Intravenous Active BD Pen Needle Micro U/F 32G X 6 MM USE DIRECTED TWICE DAILY. for 50 Active Farxiga 10 MG 1 tab(s) Orally once a day Active Glucerna Shake - 240 ml Orally once daily 04/22/20 24 Active Qulipta 60 MG 1 tab(s) orally At B ed Time Active Desvenlafaxine ER 100 MG 1 tab(s) orally At Bed Time Active ONE TOUCH GLUCOMETER DIRECTED USE DIRECTED 08/15/2021 Active OneTouch Ultra 2 w/Device as directed 12/31/2022 Active Atorvastatin Calcium 80 MG 1 tab(s) oral ly once a day in the evening Active Promethazine HCl 25 MG 1 tab(s) Orally t wo times a day as needed Active GLUCOMETER DIRECTED TEST QD 07/09/2021 Active Ibuprofen 800 MG 1 tablet with food o r milk as needed Orally every 8 hrs prn 08/05/2024 Active Lantus SoloStar 100 UNIT/ML 20 units Sub cutaneous once daily 08/12/2024 Active Glucagon Emergency 1 MG as directed Injection 05/21 Active Ingrezza 80 MG 1 cap(s) orally At B ed Time Active Keppra 500 MG 1 tablet Orally Two times a day Active OneTouch Ultra - USE TO TEST 4 TIMES DAILY DIRECTED. Active Diphenoxylate-Atropine 2.5-0.025 MG 1 tab(s) Orally q6h prn diarrhea 08/18/2024 Active ONE TOUCH TEST STRIPS DIRECTED TESTS FOUR TIMES A DAY 08/15/2021 Active OneTouch SureSoft Lancing Dev - four times a day, PRN 12/31/2022 Acti ve traZODone HCl 150 MG 1 tab(s) orally onc e a day (at bedtime) Active Fluticasone Propionate 50 MCG/ACT 2 spray in each nostril Nasally once a day as needed 10/07/2024 Active Tums 500 MG 2 tablet Orally four times a day as needed 05/06/2023 Active FreeStyle John 14 Day [place] - as directed Active Aspirin 325 MG 1 tab(s) orally once a day for 30 day(s) Active Gabapentin 800 MG 1 tab(s) orally 3 ti mes a day for 30 day(s) 09/28/2024 Active Vistaril 25 MG 1 cap(s) orally thre e times a day as needed for 30 days Active Alendronate Sodium 70 mg Take 1 tablet o nce weekly 30 minutes before the first food, beverage or medicine of the day with plain water for 28 Active Omeprazole 40 MG 1 cap(s) Orally once daily Active Cetirizine HCl 10 MG 1 tablet Orally onc e daily Active FreeStyle John 2 Sensor - USE DIRECT ED (CHANGE EVERY 14 D AYS. for 28 Active tiZANidine HCl 4 MG 1 tablet Orally Thre e times a day Active OneTouch Delica Plus [id number] - USE 4 TIMES DAILY for 25 Act claribel Acetaminophen 325 mg TAKE TWO TABLETS BY MOUTH EVERY 6 HOURS NEEDED for 13 Active NIFEdipine ER 30 MG 1 tab(s) Orally Once a day for 30 day(s) Active Lisinopril 40 MG 1 tablet Orally Once a day for 30 day(s) Active Melatonin 5 MG 1 tab Orally At Bed Time for 30 day(s) 10/07/2023 Active Lidocaine 4 % 1 patch Externally O nce a day prn 10/07/2023 Active Immunizations Vaccine Route Administration Date Status Comme nts COVID 19 Allyson Unknown 10/21/2020 Administered COVID 19 Allyson Unknown 05/26/2021 Administered Fluzone High Dose (65yr and older) IM Intramuscular 04/22/2024 Administered Fluzone PF Quad (6-35 months) Unknown 10/26/2019 Administered Fluzone Quad (6months&older) IM Intramuscular 07/04/2020 Administered Fluzone Quad-Medicare (6months&older) IM Intramuscular 05/23/2015 Administered Fluzone Quad-Medicare (6months&older) IM Intramuscular 06/28/2016 Administered Fluzone Quad-Medicare (6months&older) IM Intramuscular 04/02/2022 Administered Fluzone Quad-Medicare (6months&older) IM Intramuscular 04/15/2023 Administered Hepatitis A (adult) IM Intramuscular 08/11/2018 Administer ed PNEUMOVAX 23 VACCINE Unknown 04/18/2014 Administered PNEUMOVAX 23 VACCINE Unknown 10/26/2019 Administered Shingrix IM Intramuscular 08/11/2018 Administered Tetanus Tdap-Adacel (over 7yrs) IM Intramuscular 07/10/2017 Administered Tetanus Tdap-Adacel (over 7yrs) Unknown 07/10/2017 Administered Tetanus Tdap-Adacel (over 7yrs) Unknown 07/10/2017 Administered xFlu shot- 6months-36 months of qfm-YPVS-EOER-triva lent Unknown 04/18/2014 Administered xFlu shot-36 months and older IM Intramuscular 06/08/2005 Administered xFlu shot-36 months and older IM Intramuscular 05/27/2006 Administered xFlu shot-36 months and older IM Intramuscular 06/01/2007 Administered xFlu shot-36 months and older IM Intramuscular 06/07/2008 Administered xFlu shot-36 months and older IM Intramuscular 04/07/2009 Administered xFluzone (6mos and older)-trivalent IM Intramuscular 05/10/2010 Administered xFluzone (6mos and older)-trivalent IM Intramuscular 05/27/2013 Administered xFluzone Intradermal (18-64yrs)-trivalen t-medicare pts ID Intradermal 04/07/2012 Administered xFluzone-trivalent- medicare pts. IM Intramuscular 06/17/2011 Administered Morphine 10mg/ml IM Intramuscular 03/06/2005 Administered Morphine 10mg/ml IM Intramuscular 03/12/2005 Administered Morphine 10mg/ml IM Intramuscular 05/15/2005 Administered Morphine 10mg/ml IM Intramuscular 05/22/2005 Administered Morphine 10mg/ml IM Intramuscular 05/25/2005 Administered Morphine 10mg/ml IM Intramuscular 05/28/[address] GUTIERRES ORDERED .5 ML> ONLY .1ML IN VIAL DR. GUTIERRES AWARE ONLY .1ML GIVEN. THIS WAS WITNESSED BY BOTH OTHER MA's ON FLOOR WITH ME. VRS & NOTED IN MORPHINE LOG. Morphine 10mg/ml IM Intramuscular 06/03/2005 Administered Morphine 10mg/ml IM Intramuscular 07/08/2005 Administered Morphine 10mg/ml IM Intramuscular 07/17/2005 Administered Morphine 10mg/ml IM Intramuscular 07/25/2005 Administered Morphine 10mg/ml IM Intramuscular 08/02/2005 Administered Morphine 10mg/ml IM Intramuscular 08/06/2005 Administered Morphine 10mg/ml IM Intramuscular 08/12/2005 Administered Morphine 10mg/ml IM Intramuscular 08/16/2005 Administered Morphine 10mg/ml IM Intramuscular 08/20/2005 Administered Morphine 10mg/ml IM Intramuscular 08/26/2005 Administered Morphine 10mg/ml IM Intramuscular 08/28/2005 Administered Morphine 10mg/ml IM Intramuscular 08/31/2005 Administered Morphine 10mg/ml IM Intramuscular 09/02/2005 Administered Morphine 10mg/ml IM Intramuscular 09/04/2005 Administered Morphine 10mg/ml IM Intramuscular 09/09/2005 Administered Morphine 10mg/ml IM Intramuscular 09/12/2005 Administered Morphine 10mg/ml IM Intramuscular 09/19/2005 Administered Morphine 10mg/ml IM Intramuscular 09/23/2005 Administered Morphine 10mg/ml IM Intramuscular 09/26/2005 Administered Morphine 10mg/ml IM Intramuscular 11/19/2005 Administered Morphine 10mg/ml IM Intramuscular 11/26/2005 Administered Morphine 10mg/ml IM Intramuscular 12/02/2005 Administered Morphine 10mg/ml IM Intramuscular 12/07/2005 Administered Morphine 10mg/ml IM Intramuscular 03/26/2006 Administered Morphine 10mg/ml IM Intramuscular 06/01/2007 Administered Morphine 10mg/ml IM Intramuscular 06/02/2007 Administered Morphine 10mg/ml IM Intramuscular 06/30/2007 Administered Morphine 10mg/ml IM Intramuscular 07/16/2007 Administered Morphine 10mg/ml IM Intramuscular 09/11/2007 Administered Morphine 10mg/ml IM Intramuscular 09/24/2007 Administered Problems Problem Type SNOMED Code ICD Code Onset Dates Problem Status W/U Status Risk Notes Problem Gastroesophageal reflux disease (130189573) GERD (gastroesophageal reflux disease) (K21.9) Active confirmed Problem 32311488 Essential (primary) hypertension (I10) Active confirmed Problem Insomnia (035749007) Insomnia (G47.00) Active confirmed Problem Essential hypertension (62974737) Essential hypertension (I10) Active confirmed Problem Anxiety (82127249) Anxiety (F41.9) Active confi rmed Problem 249020215 History of CVA (cerebrovascular accident) (Z86.73) Active confirmed Problem Seasonal allergy (638991953) Seasonal allergies (J30.2) Active confirmed Problem 801925355 Socialized behavior disorder (F91.2) Active confirmed Problem 612337547 Depression with anxiety (F41.8) Active confirmed Problem 86605388 Type 2 diabetes mellitus with hyperglycemia (E11.65) Active confirmed Problem Dysphagia (99529930) Dysphagia (R13.10) Active confirmed Problem 18892101 Type 2 diabetes mellitus with diabetic polyneuropathy (E11.42) Active confirmed Problem 43850179 Other chronic pain (G89.29) Active confirmed Problem 539988702 longterm (current) use of anticoagulants (Z79.01) Active confirmed Problem Long-term current use of insulin (744192942) 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.4) Active confirmed Problem Thyroid nodule (943069528) Thyroid nodule (E04.1) Active confirmed Problem 16298208 Migraine without status migrainosus, not intractable, unspecified migraine type (G43.909) Active confirmed Problem Osteoporosis (79062639) Osteoporosis (M81.0) Active confirmed Problem 294621225 Intractable periodic headache syndrome (G43.C1) Active confirmed Problem Sacroiliitis (86136683) Sacroiliitis (M46.1) Active confirmed Problem Sleep disorder (42476440) Sleep disorder (G47.9) Active confirmed Problem 857955196 Complicated migraine with status migrainosus (G43.901) Active confirmed Problem 650419641 Dyslipidemia (E78.5) Active confirmed Problem Transient ischemic attack (533857107) TIA (transient ischemic attack) (G45.9) Active confirmed Problem 209769603 Tardive dyskinesia (G24.01) Active confirmed Problem 074868619 Tobacco use disorder (F17.200) Active confirmed Problem Partial seizure (52373184) Partial seizure disorder (G40.109) Active confirmed Problem 63492923 Oropharyngeal dysphagia (R13.12) Active confirmed Problem 770172476 Right hemiparesi s (G81.91) Active confirmed Problem 45834927 Thyroid cyst (E04.1) Active confirmed Problem 917595254 Hx of meningioma of the brain (Z86.011) Active confirmed Vital Signs Heart Rate 96 /min 12/30/2024 Blood pressure diastolic 78 mm Hg 12/30/2024 Height 63.50 in 12/30/2024 Blood pressure systolic 114 mm Hg 12/30/2024 Weight 132.6 lbs 12/30/2024 BMI 23.12 kg/m2 12/30/2024 Encounters Encounter Location Date Provider Diagnosis [facility] [address] [place], [place] [id number] 01/15/2024 R Josh Nenita [facility] [address] [place], [place] [id number] 01/28/2024 R Josh Nenita [facility] [address] [place] [id number] 03/23/2024 R Josh Nenita [facility] [address] [place] [id number] 03/30/2024 R Josh Nenita Tardive dyskinesia G24.01 [facility] [address] [place], [place] [id number] 04/28/2024 Paulino Robinson Type 2 diabetes sherlyn itus with diabetic polyneuropathy E11.42 [facility] [address] [place] [id number] 05/06/2024 R Josh Nenita [facility] [address] [place] [id number] 05/10/2024 R Josh Nenita [facility] [address] [place] [id number] 05/31/2024 R Josh Nenita [facility] [address] [place] [id number] 06/03/2024 R Josh Nenita [facility] [address] [place] [id number] 06/03/2024 R Josh Nenita Type 2 diabetes sherlyn itus with diabetic polyneuropathy E11.42 [facility] [address] [place] [id number] 07/01/2024 R Josh Nenita [facility] [address] [place] [id number] 07/02/2024 R Josh Nenita [facility] [address] [place] [id number] 07/06/2024 R Josh Nenita [facility] [address] [place] [id number] 07/08/2024 R Josh Nenita [facility] [address] [place] [id number] 08/12/2024 R Josh Nenita Type 2 diabetes sherlyn itus with diabetic polyneuropathy E11.42 [facility] [address] [place] [id number] 08/18/2024 R Josh Nenita Diarrhea R19.7 [facility] [address] [place] [id number] 08/19/2024 R Josh Nenita [facility] [address] [place] [id number] 08/24/2024 R Josh Nenita [facility] [address] [place] [id number] 08/30/2024 Paulino Robinson Type 2 diabetes sherlyn itus with diabetic polyneuropathy E11.42 [facility] [address] [place] [id number] 09/16/2024 R Josh Nenita Tardive dyskinesia G24.01 [facility] [address] [place] [id number] 09/21/2024 R Josh Nenita Type 2 diabetes sherlyn itus with diabetic polyneuropathy E11.42 [facility] [address] [place] [id number] 10/04/2024 R Josh Nenita [facility] [address] [place] [id number] 10/05/2024 R Josh Nenita [facility] [address] [place] [id number] 10/07/2024 R Josh Nenita [facility] [address] [place] [id number] 10/07/2024 R Josh Nenita [facility] [address] [place] [id number] 10/15/2024 R Josh Nenita [facility] [address] [place] [id number] 10/15/2024 R Josh Nenita [facility] [address] [place] [id number] 10/26/2024 R Josh Nenita [facility] [address] [place] [id number] 11/24/2024 R Josh Nenita [facility] [address] [place] [id number] 12/06/2024 R Josh Nenita [facility] [address] [place] [id number] 01/15/2024 R Josh Nenita Intractable periodic headache syndrome G43.C1 and Type 2 diabetes mellitus with diabetic polyneuropathy E11.42 [facility] [address] [place] [id number] 02/12/2024 R Josh Nenita Intractable periodic headache syndrome G43.C1 and Type 2 diabetes mellitus with diabetic polyneuropathy E11.42 [facility] [address] [place] [id number] 02/26/2024 R Josh Nenita Intractable periodic headache syndrome G43.C1 [facility] [address] [place] [id number] 03/04/2024 R Josh Nenita Intractable periodic headache syndrome G43.C1 [facility] [address] [place] [id number] 03/25/2024 R Josh Nenita Intractable periodic headache syndrome G43.C1 and Tardive dyskinesia G24.01 [facility] [address] [facility] [address] [place], [place] [id number] 04/22/2024 R Josh Nenita Intractable periodic headache syndrome G43.C1 and Type 2 diabetes mellitus with diabetic polyneuropathy E11.42 [facility] [address] [facility] [address] [place], [place] [id number] 05/13/2024 R Josh Nenita Intractable periodic headache syndrome G43.C1 [facility] [address] [facility] [address] [place], [place] [id number] 05/27/2024 R Josh Nenita Intractable periodic headache syndrome G43.C1 [facility] [address] [place], [place] [id number] 07/01/2024 R Josh Nenita Intractable periodic headache syndrome G43.C1 ; Type 2 diabetes mellitus with diabetic polyneuropathy E11.42 and Dyslipidemia E78.5 [facility] [address] [place], [place] [id number] 08/26/2024 R Josh Nenita Intractable periodic headache syndrome G43.C1 [facility] [address] [place], [place] [id number] 10/28/2024 R Josh Nenita Intractable periodic headache syndrome G43.C1 ; Type 2 diabetes mellitus with diabetic polyneuropathy E11.42 ; Tardive dyskinesia G24.01 and BMI 23.0-23.9, adult Z68.23 [facility] [address] [place], [place] [id number] 12/30/2024 R Josh Nenita Intractable periodic headache syndrome G43.C1 and Tardive dyskinesia G24.01 [facility] [address] [place], [place] [id number] 09/30/2024 R Josh Nenita Intractable periodic headache syndrome G43.C1 [facility] [address] [place], [place] [id number] 08/05/2024 R Josh Nenita Intractable periodic headache syndrome G43.C1 ; Type 2 diabetes mellitus with diabetic polyneuropathy E11.42 and Dyslipidemia E78.5 Assessments Encounter Date Diagnosis (ICD Code) Assessment Notes Treatment Notes Treatment Clinical Notes Section Notes 01/15/2024 Type 2 diabetes mellitus with diabetic polyneuropathy (ICD-10 - E11.42) Reviewed diet reinforced healthy eating habits 01/15/2024 Intractable periodic headache syndrome (ICD-10 - G43.C1) Order provided for injection of Stadol 3 mg and Phenergan 50 mg IM at [facility] today. 02/12/2024 Type 2 diabetes mellitus with diabetic polyneuropathy (ICD-10 - E11.42) 02/12/2024 Intractable periodic headache syndrome (ICD-10 - G43.C1) Order provided for injection of Stadol 3 mg and Phenergan 50 mg IM at [facility] today. 02/26/2024 Intractable periodic headache syndrome (ICD-10 - G43.C1) Order provided for injection of Stadol 3 mg and Phenergan 50 mg IM at [facility] today. 03/04/2024 Intractable periodic headache syndrome (ICD-10 - G43.C1) Order provided for injection of Stadol 3 mg and Phenergan 50 mg IM at [facility] today. 03/25/2024 Intractable periodic headache syndrome (ICD-10 - G43.C1) Order provided for injection of Stadol 3 mg and Phenergan 50 mg IM at [facility] today. 03/25/2024 Tardive dyskinesia (ICD-10 - G24.01) 03/30/2024 Tardive dyskinesia (ICD-10 - G24.01) 04/22/2024 Type 2 diabetes mellitus with diabetic polyneuropathy (ICD-10 - E11.42) 04/22/2024 Intractable periodic headache syndrome (ICD-10 - G43.C1) Order provided for injection of Stadol 3 mg and Phenergan 50 mg IM at [facility] today. 04/28/2024 Type 2 diabetes mellitus with diabetic polyneuropathy (ICD-10 - E11.42) 05/13/2024 Intractable periodic headache syndrome (ICD-10 - G43.C1) Order provided for injection of Stadol 3 mg and Phenergan 50 mg IM at [facility] today. [facility] week 05/27/2024 Intractable periodic headache syndrome (ICD-10 - G43.C1) Order provided for injection of Stadol 3 mg and Phenergan 50 mg IM at [facility] today. Follow through with plan of care as outlined by the [facility]. 06/03/2024 Type 2 diabetes mellitus with diabetic polyneuropathy (ICD-10 - E11.42) 07/01/2024 Type 2 diabetes mellitus with diabetic polyneuropathy (ICD-10 - E11.42) 07/01/2024 Intractable periodic headache syndrome (ICD-10 - G43.C1) Order provided for injection of Stadol 3 mg and Phenergan 50 mg IM at [facility] today. Follow through with plan of care as outlined by the [facility]. 08/12/2024 Type 2 diabetes mellitus with diabetic polyneuropathy (ICD-10 - E11.42) 08/18/2024 Diarrhea (ICD-10 - R19.7) 08/26/2024 Intractable periodic headache syndrome (ICD-10 - G43.C1) Order provided for injection of Stadol 3 mg and Phenergan 50 mg IM at [facility] today. Continue with plan of care as outlined by the [facility]. 08/30/2024 Type 2 diabetes mellitus with diabetic polyneuropathy (ICD-10 - E11.42) 09/16/2024 Tardive dyskinesia (ICD-10 - G24.01) 09/21/2024 Type 2 diabetes mellitus with diabetic polyneuropathy (ICD-10 - E11.42) 09/30/2024 Intractable periodic headache syndrome (ICD-10 - G43.C1) Order provided for injection of Stadol 3 mg and Phenergan 50 mg IM at [facility] today. Continue with plan of care as outlined by the [facility]. 10/28/2024 Type 2 diabetes mellitus with diabetic polyneuropathy (ICD-10 - E11.42) 10/28/2024 Intractable periodic headache syndrome (ICD-10 - G43.C1) Order provided for injection of Stadol 3 mg and Phenergan 50 mg IM at [facility] today. Continue with plan of care as outlined by the [facility]. 08/05/2024 Type 2 diabetes mellitus with diabetic polyneuropathy (ICD-10 - E11.42) 08/05/2024 Intractable periodic headache syndrome (ICD-10 - G43.C1) Order provided for injection of Stadol 3 mg and Phenergan 50 mg IM at [facility] today. Continue with plan of care as outlined by the [facility]. 12/30/2024 Intractable periodic headache syndrome (ICD-10 - G43.C1) Order provided for injection of Stadol 3 mg and Phenergan 50 mg IM at [facility] today. Continue with plan of care as outlined by the [facility]. 12/30/2024 Tardive dyskinesia (ICD-10 - G24.01) 08/05/2024 Dyslipidemia (ICD-10 - E78.5) 10/28/2024 Tardive dyskinesia (ICD-10 - G24.01) 07/01/2024 Dyslipidemia (ICD-10 - E78.5) 10/28/2024 BMI 23.0-23.9, adult (ICD-10 - Z68.23) Plan Of Treatment Pending Test Test Name Order Date Lipid Profile 12/11/2023 Glycohemoglobin (HbA1C) 12/11/2023 Bone density 12/03/2022 colonoscopy 12/03/2022 CMP 12/11/2023 CT Scan : Chest, low dose 12/03/2022 Cologuard 12/03/2022 Insurance Providers Payer Name Payer Address Payer Phone Subscriber Number Group Number Insured Name Patient Relationship to Insured Coverage Start Date Coverage End Date [employer] [address] [address] [place], [place] [id number] JACI AWAN Self - patient is the insured Medications Administered Medication Instructions Date of Administration Dosage Notes B-12 09/01/2010 1 mL B-12 10/05/2012 1 mL B-12 11/26/2012 1 mL B-12 12/22/2012 1 mL B-12 02/04/2013 B-12 03/18/2013 1 mL B-12 04/12/2013 B-12 07/05/2014 1 mL B-12 07/22/2014 1 mL B-12 08/19/2014 1 mL B-12 09/02/2014 1 mL B-12 09/16/2014 1 mL B-12 09/30/2014 1 mL B-12 11/05/2014 1 mL B-12 12/06/2014 1 mL B-12 01/03/2015 1 mL B-12 03/03/2015 1 mL Hortensia Calhoun gave injection. B-12 05/30/2022 1 mL B-12 05/08/2023 1 mL Depo- Medrol 40 mg/ml 11/28/2009 1 mL Depo- Medrol 40 mg/ml 01/04/2010 1 mL Depo- Medrol 40 mg/ml 01/05/2013 1 mL Depo- Medrol 40 mg/ml 02/04/2013 Depo- Medrol 40 mg/ml 03/18/2013 1.5 mL Depo- Medrol 40 mg/ml 04/02/2013 Depo- Medrol 40 mg/ml 04/12/2013 Depo- Medrol 40 mg/ml 09/16/2013 1.5 mL Depo- Medrol 40 mg/ml 09/29/2013 Depo- Medrol 40 mg/ml 07/05/2014 1 mL Depo- Medrol 40 mg/ml 10/04/2014 1 mL Depo- Medrol 40 mg/ml 03/20/2015 1 mL Depo- Medrol 40 mg/ml 10/13/2015 1 mL Depo- Medrol 40 mg/ml 11/06/2015 1 mL Depo- Medrol 40 mg/ml 12/19/2015 1.5 mL Depo- Medrol 40 mg/ml 12/18/2021 1 mL Depo- Medrol 40 mg/ml 08/02/2022 1.5 mL Dexamethasone 01/10/2006 8 mg Dexamethasone 04/17/2006 1 mL Dexamethasone 04/24/2006 1 mL Dexamethasone 08/25/2006 1 mL Dexamethasone 12/26/2006 1 mL Dexamethasone 03/02/2007 4 mg Dexamethasone 09/23/2008 1 mL Dexamethasone 12/20/2008 1/2 ml Dexamethasone 12/22/2008 1/2 ml Dexamethasone 01/13/2009 2 mg Dexamethasone 01/30/2009 2 mg Dexamethasone 02/13/2009 2 mg Dexamethasone 02/27/2009 2 mg Dexamethasone 01/05/2010 1mL Dexamethasone 04/14/2010 1/2 ml Dexamethasone 05/29/2010 1 mL Dexamethasone 09/14/2010 1 mL Dexamethasone 09/25/2012 Dexamethasone 02/27/2013 1.5 mL Dexamethasone 04/27/2013 Dexamethasone 10/11/2013 1 mL Dexamethasone 11/02/2013 1 mL Dexamethasone 12/17/2013 1 mL Dexamethasone 03/29/2014 1 mL Dexamethasone 11/05/2014 1 mL Dexamethasone 12/06/2014 1 mL Dexamethasone 12/08/2014 1 mL Dexamethasone 03/03/2015 1 mL Hortensia solis gave injection. Dexamethasone 05/23/2015 1 mL Dexamethasone 09/20/2016 1 mL Dexamethasone 09/24/2016 1 mL Dexamethasone 08/20/2017 2 mL Morphine 12/31/2007 5 mg Morphine 05/13/2008 5 mg Morphine 05/31/2008 10 mg Morphine 09/12/2008 10 mg Morphine 09/23/2008 10 mg Morphine 11/04/2008 7.5 mg Morphine 11/29/2008 5 mg Morphine 12/03/2008 2 mg Morphine 12/05/2008 7.5 mg Morphine 12/20/2008 7.5 mg Morphine 11/28/2009 5 mg Morphine 04/14/2010 2 mg Morphine 04/04/2011 7.5 mg Phenergan 12.5 mgs. IM 05/15/2005 1 mL Phenergan 12.5 mgs. IM 06/03/2005 1 mL Phenergan 12.5 mgs. IM 06/06/2005 1 mL Phenergan 12.5 mgs. IM 06/24/2005 50 mg Phenergan 12.5 mgs. IM 07/03/2005 25 mg Phenergan 12.5 mgs. IM 07/08/2005 25 mg Phenergan 12.5 mgs. IM 07/16/2005 1 mL Phenergan 12.5 mgs. IM 07/25/2005 Phenergan 12.5 mgs. IM 07/30/2005 1 mL Phenergan 12.5 mgs. IM 08/02/2005 25 mg Phenergan 12.5 mgs. IM 08/06/2005 1 mL Phenergan 12.5 mgs. IM 08/20/2005 1 mL Phenergan 12.5 mgs. IM 09/02/2005 25 mg Phenergan 12.5 mgs. IM 09/04/2005 25 mg Phenergan 12.5 mgs. IM 09/12/2005 25 mg Phenergan 12.5 mgs. IM 09/23/2005 25 mg Phenergan 12.5 mgs. IM 09/30/2005 0.5 mL Phenergan 12.5 mgs. IM 10/07/2005 25 mg Phenergan 12.5 mgs. IM 10/11/2005 25 mg Phenergan 12.5 mgs. IM 10/11/2005 25 mg Phenergan 12.5 mgs. IM 10/28/2005 25 mg Phenergan 12.5 mgs. IM 12/02/2005 25 mg Phenergan 12.5 mgs. IM 12/07/2005 25 mg Phenergan 12.5 mgs. IM 12/13/2005 25 mg Phenergan 12.5 mgs. IM 01/17/2006 25 mg Phenergan 12.5 mgs. IM 01/23/2006 25 mg Phenergan 12.5 mgs. IM 02/07/2006 25 mg Phenergan 12.5 mgs. IM 02/21/2006 25 mg Phenergan 12.5 mgs. IM 02/26/2006 25 mg Phenergan 12.5 mgs. IM 03/26/2006 25 mg Phenergan 12.5 mgs. IM 04/14/2006 25 mg Phenergan 12.5 mgs. IM 04/17/2006 25 mg Phenergan 12.5 mgs. IM 04/24/2006 50 mg Phenergan 12.5 mgs. IM 05/05/2006 50 mg Phenergan 12.5 mgs. IM 05/13/2006 50 mg Phenergan 12.5 mgs. IM 05/27/2006 25 mg Phenergan 12.5 mgs. IM 05/30/2006 Phenergan 12.5 mgs. IM 06/05/2006 25 mg Phenergan 12.5 mgs. IM 08/26/2006 25 mg Phenergan 12.5 mgs. IM 09/02/2006 25 mg Phenergan 12.5 mgs. IM 11/11/2006 25 mg Phenergan 12.5 mgs. IM 10/20/2013 12.5 mg phenergan 25 mg/ml 05/22/2005 0.5 mL phenergan 25 mg/ml 05/25/2005 0.5 mL phenergan 25 mg/ml 07/17/2005 1 mL phenergan 25 mg/ml 08/12/2005 0.5 mL phenergan 25 mg/ml 08/16/2005 1 mL phenergan 25 mg/ml 08/26/2005 1 mL phenergan 25 mg/ml 08/28/2005 0.5 mL phenergan 25 mg/ml 08/31/2005 0.5 mL phenergan 25 mg/ml 09/09/2005 0.5 mL phenergan 25 mg/ml 09/19/2005 0.5 mL phenergan 25 mg/ml 09/26/2005 0.5 mL phenergan 25 mg/ml 10/15/2005 phenergan 25 mg/ml 10/31/2005 phenergan 25 mg/ml 11/05/2005 25 mg phenergan 25 mg/ml 11/12/2005 1 mL phenergan 25 mg/ml 11/18/2005 1 mL phenergan 25 mg/ml 11/26/2005 1 mL phenergan 25 mg/ml 12/23/2005 0.5 phenergan 25 mg/ml 01/06/2006 phenergan 25 mg/ml 01/28/2006 25 mg phenergan 25 mg/ml 03/10/2006 25 mg phenergan 25 mg/ml 03/11/2006 1 mL phenergan 25 mg/ml 04/08/2006 25 mg phenergan 25 mg/ml 05/15/2006 1 mL phenergan 25 mg/ml 05/20/2006 0.1 phenergan 25 mg/ml 08/25/2006 1 mL phenergan 25 mg/ml 11/27/2006 1 mL phenergan 25 mg/ml 12/09/2006 25 mg phenergan 25 mg/ml 12/26/2006 25 mg phenergan 25 mg/ml 12/29/2006 25 mg phenergan 25 mg/ml 01/23/2007 phenergan 25 mg/ml 02/03/2007 25 mg phenergan 25 mg/ml 06/01/2007 25 mg phenergan 25 mg/ml 06/02/2007 1 mL phenergan 25 mg/ml 09/11/2007 25 mg phenergan 25 mg/ml 09/24/2007 50 mg phenergan 25 mg/ml 09/24/2007 50 mg phenergan 25 mg/ml 05/31/2008 50 mg phenergan 25 mg/ml 09/12/2008 50 mg phenergan 25 mg/ml 09/23/2008 25 mg phenergan 25 mg/ml 11/29/2008 1 mL phenergan 25 mg/ml 12/03/2008 1 mL phenergan 25 mg/ml 12/05/2008 25 mg phenergan 25 mg/ml 12/20/2008 25 mg phenergan 25 mg/ml 01/30/2009 25 mg phenergan 25 mg/ml 02/13/2009 25 mg phenergan 25 mg/ml 02/27/2009 25 mg phenergan 25 mg/ml 03/09/2009 1 mL phenergan 25 mg/ml 03/30/2009 1 mL phenergan 25 mg/ml 04/10/2009 phenergan 25 mg/ml 04/22/2009 25 mg phenergan 25 mg/ml 05/09/2009 25 mg phenergan 25 mg/ml 05/23/2009 25 mg phenergan 25 mg/ml 06/19/2009 25 mg phenergan 25 mg/ml 07/03/2009 25 mg phenergan 25 mg/ml 07/17/2009 phenergan 25 mg/ml 07/25/2009 25 mg phenergan 25 mg/ml 08/22/2009 50 mg phenergan 25 mg/ml 09/01/2009 50 mg phenergan 25 mg/ml 09/15/2009 50 mg phenergan 25 mg/ml 09/29/2009 50 mg phenergan 25 mg/ml 10/10/2009 50 mg phenergan 25 mg/ml 11/28/2009 50 mg phenergan 25 mg/ml 11/29/2009 50 mg phenergan 25 mg/ml 12/12/2009 50 mg phenergan 25 mg/ml 12/22/2009 50 mg phenergan 25 mg/ml 01/04/2010 50 mg phenergan 25 mg/ml 03/02/2010 50 mg phenergan 25 mg/ml 04/14/2010 1 mL phenergan 25 mg/ml 04/17/2010 50 mg phenergan 25 mg/ml 05/10/2010 50 mg phenergan 25 mg/ml 05/30/2010 25 mL phenergan 25 mg/ml 06/18/2010 25 mL phenergan 25 mg/ml 07/12/2010 25 mL phenergan 25 mg/ml 09/01/2010 50 mg phenergan 25 mg/ml 09/14/2010 50 mg phenergan 25 mg/ml 10/01/2010 25 mg phenergan 25 mg/ml 10/15/2010 25 mg phenergan 25 mg/ml 10/29/2010 25 mg phenergan 25 mg/ml 11/09/2010 25 mg phenergan 25 mg/ml 11/23/2010 50MG phenergan 25 mg/ml 11/27/2010 50 mg phenergan 25 mg/ml 12/10/2010 50MG phenergan 25 mg/ml 12/25/2010 50 mg phenergan 25 mg/ml 01/11/2011 50 mg phenergan 25 mg/ml 01/22/2011 1 mL phenergan 25 mg/ml 02/05/2011 1 mL phenergan 25 mg/ml 02/18/2011 1 mL phenergan 25 mg/ml 03/15/2011 phenergan 25 mg/ml 04/02/2011 phenergan 25 mg/ml 04/04/2011 25 mg phenergan 25 mg/ml 04/19/2011 50 mg phenergan 25 mg/ml 06/08/2013 50 mg phenergan 25 mg/ml 06/22/2013 50 mg phenergan 25 mg/ml 11/02/2013 50 mg phenergan 25 mg/ml 05/27/2016 25 mg phenergan 25 mg/ml 04/10/2018 1 mL phenergan 50mg/ml 05/28/2005 1 mL phenergan 50mg/ml 07/23/2005 phenergan 50mg/ml 11/19/2005 0.5 mL phenergan 50mg/ml 04/22/2006 phenergan 50mg/ml 09/23/2006 phenergan 50mg/ml 05/13/2008 50 mg phenergan 50mg/ml 11/04/2008 50 mg phenergan 50mg/ml 01/05/2010 phenergan 50mg/ml 01/20/2010 50 mg phenergan 50mg/ml 02/08/2010 50 mg phenergan 50mg/ml 07/05/2013 50 mL phenergan 50mg/ml 07/30/2013 50 mg stadol 06/06/2005 1.5 mL stadol 06/15/2005 1.5 mL stadol 06/24/2005 3 mg stadol 07/03/2005 0.5 mL stadol 07/16/2005 1 mL stadol 07/23/2005 3 mg stadol 07/30/2005 1.5 mL stadol 09/30/2005 2 mg stadol 10/07/2005 2 mg stadol 10/11/2005 2 mg stadol 10/11/2005 2 mg stadol 10/15/2005 2 mg stadol 10/28/2005 2 mg stadol 10/31/2005 2 mg stadol 11/05/2005 2 mg stadol 11/12/2005 2 mg stadol 11/18/2005 1 mL stadol 12/13/2005 2 mg stadol 12/17/2005 1 mL stadol 12/23/2005 0.2 stadol 01/06/2006 2 mg stadol 01/17/2006 2 mg stadol 01/23/2006 2 mg stadol 01/28/2006 2 mg stadol 02/07/2006 2 mg stadol 02/21/2006 2 mg stadol 02/26/2006 2 mg stadol 03/10/2006 2 mg stadol 03/11/2006 2 mg stadol 04/03/2006 stadol 04/08/2006 2 mg stadol 04/14/2006 2 mg stadol 04/17/2006 3 mg stadol 04/22/2006 2 mg stadol 04/24/2006 2 mg stadol 05/05/2006 2 mg stadol 05/13/2006 2 mg stadol 05/15/2006 2 mg stadol 05/20/2006 2 mg stadol 05/27/2006 2 mg stadol 05/30/2006 stadol 06/05/2006 3 mg stadol 08/18/2006 3 mg stadol 08/25/2006 2 mg stadol 08/26/2006 2 mg stadol 09/02/2006 3 mg stadol 11/11/2006 3 mg stadol 11/27/2006 3 mg stadol 12/09/2006 2 mg stadol 12/26/2006 3 mg stadol 12/29/2006 3 mg stadol 01/23/2007 3 mg stadol 02/03/2007 3 mL stadol 12/22/2008 1.5 mg stadol 01/13/2009 2 mg stadol 01/30/2009 3 mg stadol 02/13/2009 3 mg stadol 02/27/2009 3 mg stadol 03/09/2009 3 mg stadol 03/30/2009 3 mg stadol 04/10/2009 3 mg stadol 04/10/2009 3 mg stadol 04/22/2009 3 mg stadol 05/09/2009 3 mg stadol 05/23/2009 3 mg stadol 06/06/2009 3 mg stadol 06/19/2009 3 mg stadol 07/03/2009 3 mg stadol 07/17/2009 3 mg stadol 07/25/2009 3 mg stadol 08/10/2009 3 mg stadol 08/22/2009 3 mg stadol 09/01/2009 3 mg stadol 09/15/2009 3 mg stadol 09/29/2009 1.5 mL stadol 10/10/2009 1.5 mL stadol 11/29/2009 3 mg stadol 12/12/2009 3 mg stadol 12/22/2009 3 mg stadol 01/04/2010 3 mg stadol 01/05/2010 3 mg stadol 01/20/2010 3 mg stadol 02/08/2010 3 mg stadol 03/02/2010 3 mg stadol 04/17/2010 3 mg stadol 05/10/2010 3 mg stadol 05/30/2010 3 mL stadol 06/18/2010 3 mL stadol 07/12/2010 3 mL stadol 09/01/2010 3 mg stadol 09/14/2010 3 mg stadol 10/01/2010 3 mL stadol 10/15/2010 3 mL stadol 10/29/2010 3 mL stadol 11/09/2010 3 mg stadol 11/23/2010 3 mg stadol 11/27/2010 3 mg stadol 12/10/2010 3 mg stadol 12/25/2010 1MG stadol 12/25/2010 2 mg stadol 01/11/2011 stadol 01/22/2011 3 mg stadol 02/05/2011 3 mg stadol 02/18/2011 3 mg stadol 03/15/2011 stadol 04/02/2011 stadol 07/05/2013 Vistaril 50 mg 08/10/2009 50 mg Medical (General) History Medical History History ICD Code migraine headache Hypertension smoking Meningioma - 11/2013 Intra-operative stroke with expressive a phasia - 12/08/13 Type 2 DM Tobacco addiction Tardive dyskinesia Surgical History Surgery Date(Month/Year) RT breast lumpectomy 1998 DREZ procedure 1999 tubal ligation 2000 teeth extracted 03/20/2009 Meningoma removed from left side of brai n 12/08/2013 Repeat DREZ procedure - Dr. Barahona ORIF R ankle fx/ [facility] 06/2023 [facility] Hospitalization History Reason Date(Month/Year)
--- OUTSIDE RECORDS SUMMARY | 2024-12-30 13:38 | XMS_ITS | Encounter Summary ---
Author Organization Healthcare Address [address] [place] [address] Care Team Providers Care Medical Laboratory Specialist Name Role Phone Vasu Gutierres MD Primary Care Provider [phone]- [phone] Reason for Visit * Reason Onset Date Comments HCN - Patient Message 10/26/2024 Clinic not es to coordinate plan of care Encounter Details Date Type Department Care Team (Late st Contact Info) Description 10/26/2024 Telephone [place] [facility] [address] [place] [address] Sweetie Hewitt, PA [address] [place] [address] HCN - Patient Message (Clinic notes to coordinate plan of care) Social History Tobacco Use Types Packs/Day Years [...] encounter Miscellaneous Notes * Telephone Encounter - Jean Humphrey - 10/26/2024 3:24 PM EDT Faxed 24 notes to PCP at requested at [phone] the fax given the notes have been sent along with imaging as requested * Telephone Encounter - Vel De La Garza - 10/26/2024 2:25 PM EDT Patient Phone Message Reason for Call: PCP requesting clinic notes from last 2 appts including botox and infusions faxed to [phone] Best contact number and optimal time of day to reach caller: Reachable at [phone] Note: Please do not reply to this message. Follow-up communication and further actions as a result of this message need to be communicated with the patient directly, if the patient is not active onMyChart. If the patient is active on MyChart, they will receive notification of the communication/outcome via [employer]. documented in this encounter Plan of Treatment Upcoming Encounters Date Type Department Care Team (Late st Contact Info) Description 02/03/2025 10:00 AM EDT Procedure Visit [facility] [address] [place] [address] Sweetie Hewitt, PA [address] [place] [address] 02/24/2025 10:00 AM EDT Appointment [facility] [address] [place] [address] 04/04/2025 10:40 AM EDT Office Visit [facility] [address] [place] [address] Sweetie Hewitt PA [address] [place] [address] documented as of this encounter Visit Diagnoses Not on filedocumented in this encounter Additional Health Concerns Assessment Noted Time A fall risk assessment has been complete d for the patient 09/28/2024 10:33 AM EDT A Body Mass Index follow-up plan has been documented for the patient 09/29/2024 9:14 AM EDT documented as of this encounter Care Teams Medical Laboratory Specialist Relationship Specialty Start Date End Date Vasu Gutierres MD [address] [place] [address] PCP - General 05/19/24 documented as of this encounter
--- OUTSIDE RECORDS SUMMARY | 2024-12-30 13:38 | XMS_ITS | Encounter Summary ---
Author Organization Healthcare Address [address] [place] [address] Care Team Providers Care General Teller Name Role Phone Vasu Gutierres MD Primary Care Provider [phone]- [phone] Encounter Details Date Type Department Care Team (Late st Contact Info) Description 12/01/2024 Telephone [facility] [address] [facility] [address] [place] [address] Stella Gilmore APRN [address] [place] [phone] Social History Tobacco Use Types Packs/Day Years [...] encounter Miscellaneous Notes * Telephone Encounter - Stella Gilmore APRN - 12/01/2024 10:47 AM EDT [facility] Pre-Infusion Screening Citlali Robert Maravilla has an appointment for Vyepti infusion on 12/02/2024. MANAGED CARE LIAISON called patient to complete pre-infusion screening questions. Unable to speak with patient. Spoke with nurse, confirmed appointment time, date and location. Duration of phone call: 1 minutes Stella Gilmore APRN [facility] V[facility] documented in this encounter Plan of Treatment Upcoming Encounters Date Type Department Care Team (Late st Contact Info) Description 02/03/2025 10:00 AM EDT Procedure Visit [facility] [address] [place] [address] Sweetie Hewitt, PA [address] [place] [address] 02/24/2025 10:00 AM EDT Appointment [facility] [address] [place] [address] 04/04/2025 10:40 AM EDT Office Visit [facility] [address] [place] [address] Sweetie Hewitt, PA [address] [place] [address] documented as of this encounter Visit Diagnoses Not on filedocumented in this encounter Additional Health Concerns Assessment Noted Time A fall risk assessment has been complete d for the patient 11/01/2024 12:34 PM EDT A Body Mass Index follow-up plan has been documented for the patient 11/01/2024 1:49 PM EDT documented as of this encounter Care Teams General Teller Relationship Specialty Start Date End Date Vasu Gutierres MD [address] [place] [address] PCP - General 05/19/24 documented as of this encounter
--- OUTSIDE RECORDS SUMMARY | 2024-12-30 13:38 | XMS_ITS | Clinical Summary ---
Author Organization [facility] Address [address] [place] [address] Care Team Providers Care Commutator Inspector Name Role Phone Vasu Gutierres MD Primary Care Provider [phone]- [phone] Allergies Active Allergy Reactions Criticality Noted Date Comments Erenumab-Aooe Other - please docum ent in the comment field Low 09/28/2024 Leg pain Aspartame Unknown - Patient st ates they do not know rxn details Low 05/15/2017 Cephalexin Unknown - Patient st ates they do not know rxn details Low 05/15/2017 Cephalosporins Itching Medium 05/01/2022 Dihydroergotamine Rash Low 05/15/2017 Eletriptan Other - please docum ent in the comment field,Unknown - Patient states they do not know rxn details Low 05/15/2017 Erythromycin Rash High 05/15/2017 Ketorolac Nausea 05/01/2022 Levofloxacin Rash Medium 05/01/2022 Methadone Swelling,Other - ple ase document in the comment field High 05/15/2017 Metoclopramide Hallucinations,Other - please document in the comment field Medium 05/15/2017 Ondansetron Nausea And Vomiting 03/12/2023 Per pt report Penicillins Other - please docum ent in the comment field,Vomiting Medium 05/15/2017 Prunus Persica Other - please docum ent in the comment field Low 05/15/2017 Quetiapine Other - please docum ent in the comment field,Unknown - Patient states they do not know rxn details High 05/15/2017 Saccharin Other - please docum ent in the comment field Low 05/15/2017 Sulfa Drugs Unknown - Patient st ates they do not know rxn details Low 05/15/2017 Trimethoprim Rash Medium 05/01/2022 Vilazodone Unknown - Patient st ates they do not know rxn details Low 05/01/2022 Vilazodone Hcl Unknown - Patient st ates they do not know rxn details High 09/08/2023 Medications aspirin 325 MG tablet 4 Active Qulipta 60 MG tablet Take 60 mg by mouth every night. Active atorvastatin (Lipitor) 80 MG tablet Take 1 tablet (80 mg) by mouth 1 (one) time each day in the evening. 4 Active cetirizine (ZyrTEC) 10 MG tablet Take 1 tablet (10 mg) by mouth 1 (one) time each day. Active Continuous Glucose Nutter Up (M-FilesStyle John 14 Day [place]) device 3 Active Continuous Glucose Sensor (FreeStyle John 2 Sensor) [facility] [place] DIRECTED (CHANGE EVERY 14 D AYS. 4 Active Farxiga 10 MG tablet TAKE (1) TABLET BY MOUTH EVERY DAY. Active desvenlafaxine (Pristiq) 100 MG 24 hr tablet Take 1 tablet (100 mg) by mouth every night. Active diphenoxylate-a tropine (Lomotil) 2.5-0.025 MG tablet TAKE ONE TABLET BY MOUTH EVERY 6 HOURS NEEDED FOR DIARRHEA 4 Active gabapentin (Neurontin) 800 MG tablet Take 1 tablet (800 mg) by mouth 3 (three) times a day. Active StupilTouch Ultra Test test strip USE TO TEST 4 TIMES DAILY DIRECTED. Active hydrOXYzine pamoate (Vistaril) 25 MG capsule 4 Active Levemir FlexPen 100 UNIT/ML injection pen 4 Active BD Pen Needle Micro U/F 32G X 6 MM misc 2 (two) times a day. as directed 4 Active Lancets (OneTouch Delica Plus [id number]) misc 4 (four) times a day. 4 Active lisinopril 40 MG tablet TAKE (1) TABLET BY MOUTH DAILY. Active Melatonin 5 MG tablet tablet Take 1 tablet (5 mg) by mouth. 4 Active NIFEdipine XL (Procardia XL) 30 MG 24 hr tablet TAKE (1) TABLET BY MOUTH DAILY. 4 Active omeprazole (PriLOSEC) [address] capsule TAKE (1) CAPSULE BY MOUTH EVERY DAY. Active promethazine (Phenergan) 25 MG tablet Take 1 tablet (25 mg) by mouth every 6 (six) hours if needed. Active tiZANidine (Zanaflex) 4 MG tablet TAKE (1) TABLET BY MOUTH THREE TIMES DAILY. Active traZODone (Desyrel) 150 MG tablet Take 1 tablet (150 mg) by mouth every night. Active valbenazine tosylate (Ingrezza) 80 MG capsule Take 1 capsule (80 mg) by mouth 1 (one) time each day. Active acetaminophen (Tylenol) 325 MG tablet take two tablets by mouth every 6 hours as needed 4 Active fluticasone (Flonase) 50 MCG/ACT nasal spray Administer 2 sprays into affected nostril(s) 1 (one) time each day. 5 Active ibuprofen 800 MG tablet as needed. 5 Active levETIRAcetam (Keppra) 500 MG tablet in the morning. 5 Active Lantus SoloStar 100 UNIT/ML injection pen in the morning. 5 Active eptinezumab (Vyepti) 100 MG/ML injection Infuse into a venous catheter every 3 (three) months. Active Active Problems Problem Noted Date Diagnosed Date Migraine without aura and wi thout status migrainosus, not intractable 05/19/2024 Dysphagia 06/04/2023 Encounters Date Type Department Care Team Description 12/15/2024 Telephone [facility] [address] [place] [address] Sweetie Hewitt PA 12/14/2024 Telephone [facility] [address] [place] [address] Sweetie Hewitt PA 12/02/2024 9:58 AM EDT - 12/02/2024 11:59 PM EDT Hospital Encounter [facility] [address] [facility] [address] [place] [address] Migraine without aura and without status migrainosus, not intractable (Primary Dx) Discharge Disposition: Home or Self Care 12/02/2024 Travel 12/01/2024 Telephone [facility] [address] [place] [address] Stella Gilmore ESTEBAN 11/01/2024 12:30 PM EDT Procedure Visit [facility] [address] [place] [address] Sweetie Hewitt PA Migraine without aura and without status migrainosus, not intractable (Primary Dx) 11/01/2024 Travel 10/26/2024 Telephone [facility] [address], [address] [place] [address] Sweetie Hewitt PA HCN - Patient Message (Clinic notes to coordinate plan of care) from Last 3 Months Immunizations Immunization Administration Dates Next Due Influenza, Unspecified 04/24/2017 Influenza, high-dose, quadrivalent 04/24/2017 Influenza, injectable, MDCK, preservative free, quadrivalent 05/26/2021 Influenza, injectable, quadrivalent 04/02/2022 Influenza, injectable, quadr ivalent, preservative free 10/26/2019 Influenza, seasonal, injectable 05/10/2010 Influenza, seasonal, injecta ble, preservative free 04/18/2014 PPD Skin Test (TB Skin Test) 06/20/2021,06/13/20 21,05/15/2017 Pneumococcal Polysaccharide PPV23 10/26/2019, Tdap 07/10/2017 Social History Tobacco Use Types Packs/Day Years Used Date Smoking Tobacco: Every Day Cigarettes Smokeless Tobacco: Never Tobacco Cessation:Ready to Q uit: Not Asked; Counseling Given: Not Answered Alcohol Use Standard Drinks/Week Comments Never 0 (1 standard drink = 0.6 oz pur e alcohol) Comments Unknown Sex and Gender Information Value Date Recorded Sex Assigned at Not on file Legal Sex Female 8:58 PM EDT Gender Identity Not on file Sexual Orientation Not on file Last Filed Vital Signs Vital Sign Reading Time Taken Comments Blood Pressure 114/74 12/02/2024 11:15 AM EDT Pulse 59 12/02/2024 11:15 AM EDT Temperature 36.3 C (97.4 F) 12/02/2024 10:01 AM EDT Respiratory Rate 16 06/14/2024 10:44 AM EST Oxygen Saturation 97% 11/01/2024 12:31 PM EDT Inhaled Oxygen Concentration - - Weight 60.6 kg (133 lb 9.6 oz) 12/02/2024 10:01 AM EDT Height 167.6 cm (5' 6 ) 12/02/2024 10:01 AM EDT Body Mass Index 21.56 12/02/2024 10:01 AM EDT Plan of Treatment Upcoming Encounters Date Type Department Care Team (Late st Contact Info) Description 02/03/2025 10:00 AM EDT Procedure Visit [facility] [address] [place] [address] Sweetie Hewitt, PA [address] [place] [address] 02/24/2025 10:00 AM EDT Appointment [facility] [address] [place] [address] 04/04/2025 10:40 AM EDT Office Visit [facility] [address], [address] [place] [address] Sweetie Hewitt, PA [address] [place] [address] Health Maintenance Due Date Last Done Comments Dental Oral Exam 1965 Dental Prophylaxis 1965 Dental X-Ray: Bitewings 1965 Dental X-Ray: Full Mouth 1965 [facility]-Depression Screening 1965 [facility]-HIV Screening 1963 [facility]-Hepatitis C Screening 1963 [facility]-Medicare Annual Wellness (AWV) 1965 [facility]-Infant/Child/Adol SDOH Screenings 1965 [facility]- SDOH Screenings 1981 [facility]-Adult SDOH Screenings 1981 [facility]-Pap Smear 02/26/1984 [facility]-Cervical Cancer Screening 1993 [facility]-HPV/Cotest 1993 CT Colonography 02/26/2008 Colonoscopy 02/26/2008 FIT-DNA 02/26/2008 FIT 02/26/2008 FOBT 02/26/2008 Sigmoidoscopy 02/26/2008 [facility]-Colorectal Cancer Screening 02/26/2008 [facility]-Breast Cancer Screening 2013 [facility]-Zoster Vaccines (1 of 2) 2013 [facility]-Pneumococcal Vaccine: 50+ Years (2 of 2 - PCV) 10/25/2020 10/26/2019, 04/18/2014 [id number] Vaccine (3 - season) 2024 05/26/2021, 10/21/2020 [facility]-Influenza Vaccine (Season Ended) 2025 04/02/2022, 05/26/2021, 10/26/2019, Additional history exists [facility]-DTaP,Tdap,and Td Vaccines (2 - Td or Tdap) 07/10/2027 07/10/2017 [facility]-RSV Vaccine: 60+ Years or (1 - 1-dose 75+ series) 2038 [facility]-Diabetes: Hemoglobin A1C Discontinued 12/30/2023, 08/15/2023, 06/09/2023, Additional history exists HPV Vaccines Aged Out No longer eligi ble based on patient's age to complete this topic [facility]-HIB Vaccines Aged Out No longer e ligible based on patient's age to complete this topic [facility]-Hepatitis A Vaccines Aged Out No longer eligible based on patient's age to complete this topic [facility]-IPV Vaccines Aged Out No longer e ligible based on patient's age to complete this topic [facility]-Rotavirus Vaccines Aged Out No lo nger eligible based on patient's age to complete this topic Insurance [place]ICAID-[place] UHC MEDICARE Care Teams Commutator Inspector Relationship Specialty Start Date End Date Vasu Gutierres MD [address] [place] [address] PCP - General 05/19/24
--- OUTSIDE RECORDS SUMMARY | 2024-12-30 13:38 | XMS_ITS | Encounter Summary ---
Author Organization [facility] Address [address] [place] [address] Care Team Providers Care Hosiery Pairer Name Role Phone Vasu Gutierres MD Primary Care Provider [phone]- [phone] Encounter Details Date Type Department Care Team (Latest Contact Info) Description 11/01/2024 Travel Social History Tobacco Use Types Packs/Day [...] Description 02/03/2025 10:00 AM EDT Procedure Visit [place] [facility] [address], [address] [place] [address] Sweetie Hewitt PA [address] [place] [address] 02/24/2025 10:00 AM EDT Appointment [facility] [address] [place] [address] 04/04/2025 10:40 AM EDT [facility] Visit [place] [facility] [address], [address] [place] [address] Sweetie Hewitt PA [address] [place] [address] documented as of this encounter Visit Diagnoses Not on filedocumented in this encounter Additional Health Concerns Assessment Noted Time A fall risk assessment has been complete d for the patient 11/01/2024 12:34 PM EDT A Body Mass Index follow-up plan has been documented for the patient 11/01/2024 1:49 PM EDT documented as of this encounter Care Teams Hosiery Pairer Relationship Specialty Start Date End Date Vasu Gutierres MD [address] [place] [address] PCP - General 05/19/24 documented as of this encounter
[2024-12-30 13:45] VITALS: BP 147/92; PULSE 80; RESP 16; O2SAT 100
== END 2024-12-30 13:50 | disposition home or self-care (01) ==
LOC: INF 12:42
PROVIDERS: PCP Family Medicine; Visit Provider Family Medicine
DX: G43.019 Migraine without aura, intractable, without status migrainosus (principal)
CPT/HCPCS: 96372; J0595; J2550

== ENCOUNTER 2025-01-25 14:58 | Outpatient (CLI) | payer MEDICARE, MEDICAID, SELFPAY ==
--- OUTSIDE RECORDS SUMMARY | 2024-08-27 04:00 | XMS_ITS | Continuity of Care Document ---
Author Organization [facility] Address [address] [place] [address] Phone Care Team Providers Care Circus Roustabout Name Role Phone JAMAR ZAMORA MD Unavailable [...] Diagnoses Date Provider Providers Copied on Encounter [facility], [facility], [address] [place] [address], [id number], tel:[phone] [place] OFFICE IDDM (chief complaint)PC O (chief complaint)PV D (chief complaint)op tic disc cupping (chief complaint) Type 1 diabetes mellitus without complication sOther secondary cataract, bilateralVit reous degeneration , left eyeGlaucomat ous optic atrophy, right eye 5 SERA MESSER. [address] [place] [address], [id number], [place]. tel:[phone] Specialist : Dang García MD, [address] [facility] [address], [place], [address]. tel:[phone] OFFICE/OUTPA TIENT VISIT, EST [facility], [facility], [address] [place] [address], [id number], tel:[phone] [place] OFFICE PVD f/u OS (chief complaint) Vitreous degeneration , left eyeOther secondary cataract, bilateral 4 ZINA CHANDLER. [address] [place] [address], [id number], [place]. tel:[phone] [facility], [address] [place] [address], [id number], [place] tel:[phone] [place] [address] OFFICE EOV (chief complaint) Vitreous degeneration , left eye - 4 ZINA CHANDLER. [address] [place] [address], [id number], [place]. tel:[phone] [place] [address] [facility], [address] [place] [address], [id number], [place] [phone] [place] [address] OFFICE Diabetic Eye Exam (chief complaint)PC O (chief complaint)di sc cupping (chief complaint) Type 1 diabetes mellitus without complication sOther secondary cataract, bilateralGla ucomatous optic atrophy, right eye 3 ZAMORA JAMAR. [address] [place] [address], [id number], [place]. tel:[phone] Specialist : Dang García MD, [address] [facility] [address], [place], [address]. tel:[phone] [facility], [facility], [address] [place] [address], [id number], [place] tel:[phone] [place] [address] OFFICE Full Exam (chief complaint)Di abetes (chief complaint) Type 1 diabetes mellitus without complication sGlaucomatou s optic atrophy, right eyeOther secondary cataract, bilateral May- 2 ZAMORA JAMAR. [address] [place] [address], [id number], [place]. tel:[phone] [place] [address] [facility], [address] [place] [address], [id number], [place] tel:[phone] [place] [address] OFFICE Diabetic exam (chief complaint)Co vid screening negative (chief complaint) Type 1 diabetes mellitus without complication sOther secondary cataract, bilateralGla ucomatous optic atrophy, right eye Oct- 1 ZAMORA JAMAR. [address] [place] [address], [id number], [place]. tel:[phone] [facility], [address] [place] [address], [address] [place] [address], tel:[phone] [place] [address] OFFICE Diabetes Examination (chief complaint)PC Fibrosis (chief complaint) Type 1 diabetes mellitus without complication sOther secondary cataract, bilateral 0 ZAMORA JAMAR. [address] [place] [address], [id number], [place]. [phone] [place] [address] [facility], [facility], [address] [place] [address], [address] [place] [address], tel:[phone] [place] [address] OFFICE IDDM (chief complaint)PC Fibrosis (chief complaint) Other secondary cataract, bilateralTyp e 1 diabetes mellitus without complication s 9 ZAMORA JAMAR. [address] [place] [address], [address] [place] [address], [place]. tel:[phone] [place] [address] [facility], [facility], [address] [place] [address], [address] [place] [address], tel:[phone] [place] [address] OFFICE NIDDM (chief complaint)PC Fibrosis (chief complaint) Type 2 diabetes mellitus without complication sOther secondary cataract, bilateral 9-201 8 ZAMORA JAMAR. [address] [place] [address], [id number], [place]. tel:[phone] [place] [address] [facility], [facility], [address] [place] [address], [address] [place] [address], tel:[phone] [place] [address] OFFICE Diabetes Examination (chief complaint)sh ooting pain (chief complaint)h/ o amblyopia (chief complaint) Diabetes Mellitus Type 2, Uncomplicate dAfter-catar act, obscuring visionLens replaced by other meansKeratoc onjunctiviti s sicca, not specified as sjogren's Mar-0 6-201 5 ZAMORA JAMAR. [address] [place] [address], [id number], [place]. tel:[phone] Family History Family Member Type Diagnosis Age [...] colon Payers Payer name Insurance type Covered democrat ID Authoriza tion(s) ANTH/Blue Cross Blue [facility] [id number] 2 Social History Type Description Quantity Date [...] ous degeneration, left eye Impression/Plan Related to Vitre ous degeneration, left eye Impression/Plan Related to Other secondary cataract, bilateral Return in [address] [facility] Eliseo Guo M.D. for Follow up. Related to Vitreous degeneration, left eye Impression/Plan Related to Vitre ous degeneration, left eye Return in 1 year coni Zamora M.D. for Full Exam. 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 for Full Exam. 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 for Full Exam , OCT (ON). 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
--- OUTSIDE RECORDS SUMMARY | 2024-10-28 10:15 | XMS_ITS ---
Author Organization [facility] Address [address] [facility] [address] [id number] Care Team Providers Care Technical Operations Specialist Name Role Phone Samuel Gutierres Primary Care Provider [phone] Allergies Allergen (clinical drug ingredient) Drug/Non Drug [...] needed 10/07/2024 Active FreeStyle John 14 Day Jasper - as directed Active Vyepti 100 MG/ML [...] TOUCH GLUCOMETER DIRECTED USE DIRECTED 08/15/2021 Active ViddyadTouch Ultra 2 w/Device as directed 12/31/2022 Active [...] W/U Status Risk Notes Problem Tardive dyskinesia (178730984) Tardive dyskinesia (G24.01) Active confirmed Vital Signs Blood pressure systolic 118 mm Hg 10/29/19 25 Blood pressure diastolic 74 mm Hg 025 Heart Rate 67 /min 10/28/2024 Height 63.50 in 10/28/2024 Weight 136.6 lbs 10/28/2024 BMI 23.82 kg/m2 10/28/2024 Encounters Encounter Location Date Provider Diagnosis [facility] [address] [facility] [address] [place], [place] [id number] 10/28/2024 Samuel Gutierres Intractable periodic headache syndrome [...] Phenergan 50 mg IM at [facility] today. Continue with plan of care [...] Phenergan 50 mg IM at [facility] today. Next Appt Details Follow Up: 3 Months, Reason: Provider Name:Samuel Woodward, 01/25/2025 02:15:00 PM, [address], [address], [place], [place], [id number], Progress Notes * WIL PITTMANB:1965 (59 yo F)Acc No.[id number]:10/28/2024 Progress Notes Patient: JACI HERNANDEZ Provider: Samuel Gutierres M.D. :1965 A ge:59 Y S ex:Female Date:10/28/2024 Address:[address] [place], [place] [id number] Subjective: * Chief Complaints: * 1 . [...] Dr. Barahona 03/25/2017, ORIF R ankle fx/ [facility] 06/2023, Explant of screws from right ankle/ [facility] 07/2023. * Family History: F ather: [...] TOUCH GLUCOMETER DIRECTED USE DIRECTED , Taking [employer]uch Ultra 2 w/Device Kit as directed , [...] needed , Taking FreeStyle John 14 Day Jasper - Device as directed , Taking FreeStyle [...] ardive dyskinesia - G24.01 4 . B KS 23.0-23.9, adult - Z68.23 Plan: * Treatment: * Procedure Codes: G 2211 Complex e/m visit add on, G8752 MOST RECENT SYSTOLIC BP < 140MM HG, G8754 MOST RECENT DIASTOLIC BP < 90MM HG * Follow Up: 3 Months * Images: Billing Information: * Visit Code: 44528 Office Visit, Est Pt., Level 3. * Procedure Codes: G2211 Complex e/m visit add on. G8752 MOST RECENT SYSTOLIC BP < 140MM HG. G8754 MOST RECENT DIASTOLIC BP < 90MM HG. * Electronic signature of Samuel Gutierres MD on 01/25/2025 at 03:04 PM EDT Sign off status: Pending * Provider: Samuel Gutierres M.D. Date: 0 10/28/2024 Generated for Smithi nawaf/Mendy/eTransmitting on: 0 01/25/2025 03:04 PM EDT History and Physical Notes * [...]
--- OUTSIDE RECORDS SUMMARY | 2024-12-02 09:58 | XMS_ITS | Encounter Summary ---
Author Organization Healthcare Address [address] [place] [address] Care Team Providers Care Candle Pourer Name Role Phone Vasu Gutierres MD Primary Care Provider [phone]- [phone] Reason for Visit * Episode Based Medications (Routine) - Authorized Specialty Diagnoses / Procedures Referred By Contac t Referred To Contact Infusion Clinic Diagnoses Migraine without aura and without status migrainosus, not intractable Procedures AR INJ. EPTINEZUMAB-JJMR 1 MG Sweetie Hewitt PA [address] [place] [address] Phone: tel: fax: [facility] [address] [place] [address] Phone: tel: fax: Referral ID Status Reason Start Date Expiration Date V isits Requested Visits Authorized [id number] Authorized 05/19/2024 11/18/2025 1 5 Encounter Details Date Type Department Care Team (Latest Contact Info) Description 12/02/2024 9:58 AM EDT - 12/02/2024 11:59 PM EDT Hospital Encounter [facility] [address] [address] Migraine without aura and without status migrainosus, not intractable (Primary Dx) Discharge Disposition: Home or Self Care Social History Tobacco Use Types Packs/Day Years [...] Sign Reading Time Taken Comments Blood Pressure 114/74 12/02/2024 11:15 AM EDT Pulse 59 12/02/2024 11:15 AM EDT Temperature 36.3 C (97.4 F) 12/02/2024 10:01 AM EDT Respiratory Rate - - Oxygen Saturation - - Inhaled Oxygen Concentration - - Weight 60.6 kg (133 lb 9.6 oz) 12/02/2024 10:01 AM EDT Height 167.6 cm (5' 6 ) 12/02/2024 10:01 AM EDT Body Mass Index 21.56 12/02/2024 10:01 AM EDT documented in this encounter Medications at Time of Discharge acetaminophen (Tylenol) 325 MG tablet take two tablets by mouth every 6 hours as needed 05/12/2024 aspirin 325 MG tablet 05/17/2024 atorvastatin (Lipitor) 80 MG tablet Take 1 tablet (80 mg) by mouth 1 (one) time each day in the evening. 04/21/2024 BD Pen Needle Micro U/F 32G X 6 MM misc 2 (two) times a day. as directed 03/01/2024 cetirizine (ZyrTEC) 10 MG tablet Take 1 tablet (10 mg) by mouth 1 (one) time each day. Continuous Glucose Log Truck Driver (FreeStyle John 14 Day [place]) device 07/02/2023 Continuous Glucose Sensor (FreeStyle John 2 Sensor) [facility] USE DIRECTED (CHANGE EVERY 14 D AYS. 04/28/2024 desvenlafaxine (Pristiq) 100 MG 24 hr tablet Take 1 tablet (100 mg) by mouth every night. diphenoxylate-at ropine (Lomotil) 2.5-0.025 MG tablet TAKE ONE TABLET BY MOUTH EVERY 6 HOURS NEEDED FOR DIARRHEA 12/11/2023 eptinezumab (Vyepti) 100 MG/ML injection Infuse into a venous catheter every 3 (three) months. Farxiga 10 MG tablet TAKE (1) TABLET BY MOUTH EVERY DAY. fluticasone (Flonase) 50 MCG/ACT nasal spray Administer 2 sprays into affected nostril(s) 1 (one) time each day. 09/02/2024 gabapentin (Neurontin) 800 MG tablet Take 1 tablet (800 mg) by mouth 3 (three) times a day. hydrOXYzine pamoate (Vistaril) 25 MG capsule 09/29/2023 ibuprofen 800 MG tablet as needed. 08/18/2024 Lancets (iDentiMobTouch Delica Plus [id number]) misc 4 (four) times a day. 05/04/2024 Lantus SoloStar 100 UNIT/ML injection pen in the morning. 08/12/2024 Levemir FlexPen 100 UNIT/ML injection pen 09/29/2023 levETIRAcetam (Keppra) 500 MG tablet in the morning. 09/20/2024 lisinopril 40 MG tablet TAKE (1) TABLET BY MOUTH DAILY. Melatonin 5 MG tablet tablet Take 1 tablet (5 mg) by mouth. 09/05/2023 NIFEdipine XL (Procardia XL) 30 MG 24 hr tablet TAKE (1) TABLET BY MOUTH DAILY. 04/21/2024 omeprazole (PriLOSEC) [address] capsule TAKE (1) CAPSULE BY MOUTH EVERY DAY. [employer] Ultra Test test strip USE TO TEST 4 TIMES DAILY DIRECTED. promethazine (Phenergan) 25 MG tablet Take 1 tablet (25 mg) by mouth every 6 (six) hours if needed. Qulipta 60 MG tablet Take 60 mg by mouth every night. tiZANidine (Zanaflex) 4 MG tablet TAKE (1) TABLET BY MOUTH THREE TIMES DAILY. traZODone (Desyrel) 150 MG tablet Take 1 tablet (150 mg) by mouth every night. valbenazine tosylate (Ingrezza) 80 MG capsule Take 1 capsule (80 mg) by mouth 1 (one) time each day. documented as of this encounter Miscellaneous Notes * Manuel Maynard RN - 12/02/2024 10:09 AM EDT Images from the original note were not included. [id number] Eptinezumab-[facility] Injection Brand Name(s): Pia?? WHY is this medicine prescribed? Eptinezumab-jjmr injection is used to help prevent migraine headaches (severe, throbbing headaches that sometimes are accompanied by nausea and sensitivity to sound or light). Eptinezumab-jjmr injection is in a class of medications called monoclonal antibodies. It works by blocking the action of a certain natural substance in the body that causes migraine headaches. HOW should this medicine be used? Eptinezumab-jjmr injection comes as a solution (liquid) to inject intravenously (into a vein) over 30 minutes by a doctor or nurse in a medical facility or infusion center. It is usually given every 3 months. Your doctor may need to interrupt or stop your infusion if you experience certain side effects. Tell your doctor immediately if you experiences any of the following symptoms during your infusion: itching, rash, flushing, shortness of breath, wheezing, or face swelling. Ask your pharmacist or doctor for a copy of the hand thermal cutter's information for the patient. Are there OTHER USES for this medicine? This medication may be prescribed for other uses; ask your doctor or pharmacist for more information. What SPECIAL PRECAUTIONS should I follow? Before receiving eptinezumab-jjmr injection, ?? tell your doctor and pharmacist if you are allergic to eptinezumab-jjmr, any other medications, or any of the ingredients in eptinezumab-jjmr injection. Ask your pharmacist for a list of the ingredients. ?? tell your doctor and pharmacist what other prescription and nonprescription medications, vitamins, nutritional supplements, and herbal products you are taking or plan to take. ?? tell your doctor if you are , plan to become , or are . If you become while using eptinezumab-jjmr injection, call your doctor. What SPECIAL DIETARY instructions should I follow? Unless your doctor tells you otherwise, continue your normal diet. What SIDE EFFECTS can this medicine cause? Some side effects can be serious. If you experience any of these symptoms, call your doctor immediately or get emergency medical treatment: ?? swelling of your face, mouth, tongue, or throat ?? difficulty breathing ?? rash ?? itching ?? hives ?? flushing of the face Eptinezumab-jjmr injection may cause other side effects. Call your doctor if you have any unusual problems while taking this medication. If you experience a serious side effect, you or your doctor may send a report to the Food and Drug Administration's (FDA) MedWatch Adverse Event Reporting program online (https://www.fda.gov/Safety/MedWatch) or by phone ( ). What should I do in case of OVERDOSE? In case of overdose, call the poison control helpline at . Information is also available online at https://www.poisonhelp.org/help. If the victim has collapsed, had a seizure, has trouble breathing, or can't be awakened, immediately call emergency services at 851. What OTHER INFORMATION should I know? Keep all appointments with your doctor. You should keep a headache diary by writing down when you have headaches. Be sure to share this information with your doctor. It is important for you to keep a written list of all of the prescription and nonprescription (kzrs-zte-lecvdog) medicines you are taking, as well as any products such as vitamins, minerals, or otherdietary supplements. You should bring this list with you each time you visit a doctor or if you areadmitted to a hospital. It is also important information to carry with you in case of emergencies. This report on medications is for your information only, and is not considered individual patient advice. Because of the changing nature of drug information, please consult your physician or pharmacist about specific clinical use. The [employer] represents that the information provided hereunder was formulated with a reasonable standard of care, and in conformity with professional standards in the field. The [employer] makes no representations or warranties, express or implied, including, but not limited to, any implied warranty of merchantability and/or fitness for a particular purpose, with respect to such information and specifically disclaims all such warranties. Users are advised that decisions regarding drug therapy are complex medical decisions requiring the independent, informed decision of an appropriate health manager home healthcare, and the information is provided for informational purposes only. The entire monograph for a drug should be reviewed for a thorough understanding of the drug's actions, uses and side effects. The [employer] does not endorse or recommend the use of any drug.The information is not a substitute for medical care. AHFS?? Patient Medication Information?. ?? Copyright, 2023. The [employer]??, [address] [facility], [address], [place], [place]. All Rights Reserved. Duplication for commercial use must be authorized by [facility]. Selected Revisions: November 03, 2019. AHFS?? Patient Medication Information?. ?? Copyright, 2024 * Clinician Note - Manuel Graff RN - 12/02/2024 10:00 AM EDT Patient tolerated Vyepti without signs or symptoms of reaction. Patient discharged from clinic in stable condition. documented in this encounter Plan of Treatment Upcoming Encounters Date Type Department Care Team (Late st Contact Info) Description 02/03/2025 10:00 AM EDT Procedure Visit [facility] [address] [place] [address] Sweetie Hewitt PA [address] [place] [address] 02/24/2025 10:00 AM EDT Appointment [facility] [address] [place] [address] 04/04/2025 10:40 AM EDT Office Visit [facility] [address] [place] [address] Sweetie Hewitt PA [address] [place] [address] documented as of this encounter Visit Diagnoses Diagnosis Migraine without aura and without status migrainosus, not intractable- Primary documented in this encounter Administered Medications Inactive Administered Medications - up to 3 most recent administrations Medication Order MAR Action Action Date Dose Rate Site eptinezumab (Vyepti) 100 mg in sodium chloride 0.9 % 100 mL IVPB 100 mg, Intravenous, Once, 1 dose, On Elizabeth 12/02/24 at 1045, Administer over 30 Minutes, RoutineIndications:Migraine without aura and without status migrainosus, not intractable New Bag 12/02/2024 10:46 AM EDT 100 mg 222 mL/hr documented in this encounter Additional Health Concerns Assessment Noted Time A fall risk assessment has been complete d for the patient 12/02/2024 10:04 AM EDT A Body Mass Index follow-up plan has been documented for the patient 12/02/2024 10:09 AM EDT documented as of this encounter Care Teams Candle Pourer Relationship Specialty Start Date End Date Vasu Gutierres MD [address] [place] [address] PCP - General 05/19/24 documented as of this encounter
--- OUTSIDE RECORDS SUMMARY | 2024-12-30 07:45 | XMS_ITS ---
[facility] Address [address] [place] [phone] Care Team Providers Care Molder Sweep Name Role Phone Samuel Gutierres Primary Care [...] (substance) Sulfa Antibiotics itching Drug Allergy Active Reason For Referral Reason possible skin cancer Diagnosis 1 Neoplasm of uncertai n behavior of skin (D48.5) [facility] Referring Provider First Name Samuel Moreno Referring Provider Last Name Nenita Referring Provider Speciality Family Pra ctice Referred Organization [facility] OP Referred Provider Trudy Pacheco Referred Address [address] [facility] [address] [facility],[id number], Referred Provider Specialty Dermatology General Notes Carla Adams 2024 09:51:05 AM > faxed to Dr. Pacheco's office Referral Priority Routine REASON FOR VISIT migraines Medications Medication SIG (Take, Route, Frequency, Duration) Notes Start Date End Date Status OneTouch Delica Plus [id number] - USE 4 TIMES DAILY; Duration: 25 Active Acetaminophen 325 mg TAKE TWO TABLETS BY MOUTH EVERY 6 HOURS NEEDED; Duration: 13 Active Fluticasone Propionate 50 MCG/ACT 2 spray in each nostril Nasally once a day as needed 10/07/2024 Active FreeStyle John 14 Day [place] - as directed Active FreeStyle John 2 Sensor - USE DIRECT ED (CHANGE EVERY 14 D AYS.; Duration: 28 Active Ingrezza 80 MG 1 cap(s) orally At B ed Time Active OneTouch Ultra - USE TO TEST 4 TIMES DAILY DIRECTED. Active OneTouch SureSoft Lancing Dev - four times a day, PRN 12/31/2022 Acti ve Gabapentin 800 MG 1 tab(s) orally 3 ti mes a day; Duration: 30 day(s) 09/28/2024 Active Alendronate Sodium 70 mg Take 1 tablet o nce weekly 30 minutes before the first food, beverage or medicine of the day with plain water; Duration: 28 Active Lantus SoloStar 100 UNIT/ML 20 units Sub cutaneous once daily 08/12/2024 Active Diphenoxylate-Atropine 2.5-0.025 MG 1 tab(s) Orally q6h prn diarrhea 08/18/2024 Active Glucerna Shake - 240 ml Orally once daily 04/22/20 24 Active Promethazine HCl 25 MG 1 tab(s) Orally t wo times a day as needed Active Ibuprofen 800 MG 1 tablet with food o r milk as needed Orally every 8 hrs prn 08/05/2024 Active NIFEdipine ER 30 MG 1 tab(s) Orally Once a day; Duration: 30 day(s) Active Lisinopril 40 MG 1 tablet Orally Once a day; Duration: 30 day(s) Active BD Pen Needle Micro U/F 32G X 6 MM USE DIRECTED TWICE DAILY.; Duration: 50 Active Qulipta 60 MG 1 tab(s) orally At B ed Time Active Desvenlafaxine ER 100 MG 1 tab(s) orally At Bed Time Active Melatonin 5 MG 1 tab Orally At Bed Time; Duration: 30 day(s) 10/07/2023 Active Lidocaine 4 % 1 patch Externally O nce a day prn 10/07/2023 Active Omeprazole 40 MG 1 cap(s) Orally once daily Active Cetirizine HCl 10 MG 1 tablet Orally onc e daily Active tiZANidine HCl 4 MG 1 tablet Orally Thre e times a day Active Keppra 500 MG 1 tablet Orally Two times a day Active traZODone HCl 150 MG 1 tab(s) orally onc e a day (at bedtime) Active Tums 500 MG 2 tablet Orally four times a day as needed 05/06/2023 Active Aspirin 325 MG 1 tab(s) orally once a day; Duration: 30 day(s) Active Vistaril 25 MG 1 cap(s) orally thre e times a day as needed; Duration: 30 days Active Glucagon Emergency 1 MG as directed Injection 05/21 Active ONE TOUCH TEST STRIPS DIRECTED TESTS FOUR TIMES A DAY 08/15/2021 Active ONE TOUCH GLUCOMETER DIRECTED USE DIRECTED 08/15/2021 Active MessageCastTouch Ultra 2 w/Device as directed 12/31/2022 Active GLUCOMETER DIRECTED TEST QD 07/09/2021 Active Vyepti 100 MG/ML as directed Intravenous Active Farxiga 10 MG 1 tab(s) Orally once a day Active Atorvastatin Calcium 80 MG 1 tab(s) oral ly once a day in the evening Active Vital Signs Blood pressure systolic 114 mm Hg 12/31/19 25 Blood pressure diastolic 78 mm Hg 025 Heart Rate 96 /min 12/30/2024 Height 63.50 in 12/30/2024 Weight 132.6 lbs 12/30/2024 BMI 23.12 kg/m2 12/30/2024 Encounters Encounter Location Date Provider Diagnosis [facility] [address] [place], [place] [id number] 12/30/2024 R Josh Gutierres Intractable periodic headache syndrome G43.C1 ; Tardive dyskinesia G24.01 ; Neoplasm of uncertain behavior of skin D48.5 ; Tobacco use disorder F17.200 ; Essential hypertension I10 and Partial seizure disorder G40.109 Assessments Encounter Date Diagnosis (ICD Code) Assessment Notes Treatment Notes Treatment Clinical Notes Section Notes 12/30/2024 Intractable periodic headache syndrome (ICD-10 - G43.C1) Order provided for injection of Stadol 3 mg and Phenergan 50 mg IM at [facility] today. Continue with plan of care as outlined by the [facility]. 12/30/2024 Tardive dyskinesia (ICD-10 - G24.01) 12/30/2024 Neoplasm of uncertain behavior of skin (ICD-10 - D48.5) 12/30/2024 Tobacco use disorder (ICD-10 - F17.200) 12/30/2024 Essential hypertension (ICD-10 - I10) 12/30/2024 Partial seizure disorder (ICD-10 - G40.109) Plan Of Treatment Treatment Notes Assessment Notes Intractable periodic headache syndrome O rder provided for injection of Stadol 3 mg and Phenergan 50 mg IM at [facility] today. Referrals Referral Date Details 12/30/2024 12/30/2024, possible skin cancer, Trudy Pacheco, [address] [place] [address] [address] [facility], [place], [place], [phone], Next Appt Details Follow Up: prn, Reason: Provider Name:Samuel Woodward, 01/25/2025 02:15:00 PM, [address] [place] [address] [address] [facility], [address], [place], [place], [phone], Progress Notes * JESUS MANUEL PITTMANBROOKLYNB:1965 (59 yo F)Acc No.[id number]:12/30/2024 Progress Notes Patient: JACI HERNANDEZ Provider: Samuel Gutierres M.D. :1965 A ge:59 Y S ex:Female Date:12/30/2024 Address:[address] [place] [address] Subjective: * Chief Complaints: * 1 . Migraines. * HPI: N eurology: Jaci comes in with a 1 week history of constant migraine headache. She continues to receive her Botox and Vyepti injections as managed by the [facility]. H PI: Further to the recent phone encounter, she admits today to using illegal methamphetamine on only 1 occasion. Nonetheless she has been discharged from her current residence at [facility] She tells me she has made arrangements to stay with a friend here in [facility]. D ermatology: She is complaining of a lesion on the right side of her nose that has been present for several months and slowly getting larger. * ROS: D ERMATOLOGY: no R jennifer. [...] Dr. Barahona 03/25/2017, ORIF R ankle fx/ [facility] 06/2023, Explant of screws from right ankle/ [facility] 07/2023. * Family History: F ather: , [...] TOUCH GLUCOMETER DIRECTED USE DIRECTED , Taking Setgo Ultra 2 w/Device Kit as directed , [...] once a day (at bedtime) , Taking Tums 500 MG Tablet Chewable [...] tablet Orally Once a day , Taking Qulipta 60 MG [...] needed , Taking FreeStyle John 14 Day [place] - Device as directed , Taking FreeStyle John 2 Sensor - Miscellaneous USE DIRECTED (CHANGE EVERY 14 D AYS. , Taking OneTouch Delica Plus Ixokns34Z - Miscellaneous USE 4 TIMES DAILY , Taking Acetaminophen 325 mg Tablet TAKE TWO TABLETS BY MOUTH EVERY 6 HOURS NEEDED , Medication List reviewed and reconciled with the patient * Allergies: P enicillin, Erythromycin, DHEA, Methadone, Ketorolac, Relpax: HBP - Onset Date 05/31/2019, AMERGE: HBP and palpitations, Imitrex: HBP, Sulfa Antibiotics: itching, Cephalexin, Cipro, SEROquel, Reglan: messed with her head, Viibryd: diarrhea - Side Effects, Aimovig: leg pain - Side Effects. Objective: * Vitals: W t: 132.6, Temp: 98.6, BP: 114/78, HR: 96, Nurse: mamta, Ht: 63.50, BMI:23.12. * Examination: G eneral Examination: General Appearance: N AD. H EENT: O n the right side of her nose, there is a raised, nodular lesion suspicious for carcinoma.. N eurologic Exam:?She is mildly photophobic. Noted with facial grimacing and lipsmacking. No meningismus.. Assessment: * Assessment: 1. I ntractable periodic headache syndrome - G43.C1 (Primary) 2 . T ardive dyskinesia - G24.01 3 . N eoplasm of uncertain behavior of skin - D48.5 ? 4 . T obacco use disorder - F17.200 5 . E ssential hypertension - I10 6 . P artial seizure disorder - G40.109 Plan: * Treatment: 2. N eoplasm of uncertain behavior of skin Referral To:Trudy Pacheco Dermatology Reason:possible skin cancer * Procedure Codes: G 2211 Complex e/m visit add on, G8420 BMI<30 AND >=22 CALC & DOCU, G8783 BP SCR PRFRM RCMDD DEFIND SCR INTVL, G8752 MOST RECENT SYSTOLIC BP < 140MM HG, G8754 MOST RECENT DIASTOLIC BP < 90MM HG * Follow Up: p rn * Images: Billing Information: * Visit Code: 24663 Office Visit, Est Pt., Level 3. * Procedure Codes: G2211 Complex e/m visit add on. G8420 BMI<30 AND >=22 CALC & DOCU. G8783 BP SCR PRFRM RCMDD DEFIND SCR INTVL. G8752 MOST RECENT SYSTOLIC BP < 140MM HG. G8754 MOST RECENT DIASTOLIC BP < 90MM HG. * Electronic signature of Samuel Gutierres MD on 01/25/2025 at 03:04 PM EDT Sign off status: Pending * Provider: Samuel Gutierres M.D. Date: 0 12/30/2024 Generated for Smithi nawaf/Mendy/eTransmitting on: 0 01/25/2025 03:04 PM EDT History and Physical Notes * Examination Category Sub-Category Detail Notes Category Not es General Examination HEENT: On the right side of her nose, there is a raised, nodular lesion suspicious for carcinoma. General Appearance: NAD Neurologic Exam: She is mildly photop hobic. Noted with facial grimacing and lipsmacking. No meningismus. Consultation Request Notes Referral Date Referring Provider Referred Provider Not es 12/30/2024 Samuel Gutierres Audra possibl e skin cancer
--- OUTSIDE RECORDS SUMMARY | 2025-01-25 15:03 | XMS_ITS | Clinical Summary ---
Author Organization [facility] Address [address] [place] [address] Phone Care Team Providers Care Director Of Graduate Medical Education Name Role Phone Gilmar COFFEY, Luigi Huitron [...] right tibia, subsequent encounter Cellulitis, foot, right [id number] (SNOMED CT) 09/08 Active 09/08 Jaylene Mays Cellulitis of lower limb Infection, local skin/subcuta neous tissue 070243801 (SNOMED CT) 09/08 Active 09/08 Jaylene Davon Localized infection of skin AND/OR subcutaneous tissue CKD III(document a or b) 495425382 (SNOMED CT) 09/08 Active 09/08 Jaylene Davon Chronic kidney disease stage 3A Acute renal failure with tubular necrosis [id number] 101 (SNOMED CT) 09/08 Active 09/08 Jaylene Davon Acute renal failure due to tubular necrosis Elevation of levels of liver transaminase levels 998478936 (SNOMED CT) 09/08 Active 09/08 Jaylene Davon Elevated level of transaminase and lactic acid dehydrogenase Alkaline phosphatase, elevated 409651055 (SNOMED CT) 09/08 Active 09/08 Jaylene Mays Alkaline phosphatase above reference range Anemia due to acute blood loss 250897411 ([facility]) 09/08 Active 09/08 Jaylene Mays Acute posthemorrhagic anemia Anemia in CKD D63.1 (ICD-10-CM) 09/08 Active 09/08 Jaylene Mays Anemia in chronic kidney disease DM Type II E11.9 (ICD-10-CM) 09/08 Active 09/08 Jaylene Mays Type 2 diabetes mellitus without complications Benign Essential Hypertension 82571756 ([facility]) 09/08 Active 09/08 Jaylene Mays Benign hypertension Medications Medication Instructions Start Date Stop Date Generic Name [facility] Provider aztreonam vaibhav judd Aztreonam 2G IV [id number] [place] 09/15 aztreonam recon binta Wolfe RN Cubicin RF (daptomycin) recon binta Cubicin 650mg IV [id number] [place] 09/15 daptomycin Kamila Wolfe RN NIFEDIPINE ER 30 MG [id number] Take 1 tablet by mouth once a day nifedipine 64069882144 Janay Manrique LISINOPRIL 40 MG TABS Take 1 tablet by mouth once a day lisinopril 64990699729 Janay Manrique QULIPTA 60 MG TABS Take 1 tablet by mouth atogepant 86964572182 Janay Manrique ACETAMINOPHEN 500 MG TABS Take 1 tablet by mouth every six hours as needed acetaminophen 01895045544 Janay Manrique insulin detemir (LEVEMIR) 100 UNIT/ML injection Inject 5 unit subcutaneously every morning as directed LEVEMIR Janay Manrique ACETAMINOPHEN 325 MG TABS Take 2 tablet by mouth every six hours as needed acetaminophen 30345492751 Janay Manrique HYDROXYZINE PAMOATE 25 MG CAPS Take 1 capsule by mouth three times a day as needed hydroxyzine pamoate 86400397840 Janay Manrique LEVETIRACETAM 500 MG TABS Take 1 tablet by mouth every twelve hours levetiracetam 73104740727 Janay Manrique ASPIRIN 325 MG TABS Take 1 tablet by mouth once a day aspirin 22394505684 Janay Manrique PEG 3350 17 GM PACK Take 17 gram by mouth once a day polyethylene glycol 3350 16149333443 Janay Manrique CYCLOBENZAPRINE HCL 5 MG TABS Take 1 tablet by mouth three times a day as needed cyclobenzaprine 61819002148 Janay Manrique ENOXAPARIN SODIUM 40 MG/0.4ML SOSY Inject 0.4 ml subcutaneously once a day as directed 11/02 enoxaparin 22795295522 Janay Manrique ATORVASTATIN CALCIUM 80 MG TABS Take 1 tablet by mouth every night atorvastatin 89766259675 Janay Manrique PROCHLORPERAZINE EDISYLATE 10 MG/2ML SOLN 2 ml every eight hours as needed prochlorperazine edisylate 73855788206 Janay Manrique INSULIN LISPRO 100 UNIT/ML SOLN Inject 2-7 unit subcutaneously four times a day as directed insulin lispro 98516254780 Janay Manrique SENNOSIDES-DOCUSAT E SODIUM 8.6-50 MG TABS Take 2 tablet by mouth twice a day as needed sennosides-docusa te sodium 95720642327 Janay Manrique PROMETHAZINE HCL 25 MG TABS Take 1 tablet by mouth every six hours as needed promethazine 38390421676 Janay Manrique Valbenazine Tosylate 80 MG capsule Take 1 capsule by mouth once a day Valbenazine Tosylate 80 MG capsule Janay Manrique TRAZODONE HCL 150 MG TABS Take 3 tablet by mouth every night trazodone 09892103063 Janay Manrique DOCUSATE SODIUM 100 MG CAPS Take 1 capsule by mouth twice a day 09/18 docusate sodium 15798166598 Janay Manrique OMEPRAZOLE 40 MG CPDR Take 1 capsule by mouth once a day omeprazole 05130314971 Janay Burton CETIRIZINE HCL 10 MG TABS Take 1 tablet by mouth once a day cetirizine 10956890140 Janay Manrique MELATONIN 5 MG TABS Take 1 tablet by mouth every night as needed melatonin 37167124172 Janay Manrique LIDOCAINE PAIN RELIEF MAX ST 4 % PTCH Place 1 patch once a day as directed lidocaine 83319811711 Janay Manrique DESVENLAFAXINE SUCCINATE ER 100 MG QT65J-TJD Take 2 tablet by mouth once a day desvenlafaxine succinate 05829644414 Janay Manrique DOXYCYCLINE HYCLATE 100 MG CAPS Take 1 capsule by mouth twice a day 09/28 doxycycline hyclate 44298937639 Janay Burton ALENDRONATE SODIUM 70 MG TABS Take 1 tablet by mouth once a week alendronate 19831910735 Janay Manrique Cubicin RF (daptomycin) recon soln Cubicin 650mg IV [id number][facility] 09/15 daptomycin Kamila Wolfe RN aztreonam recon solmeseret Aztreonam 2G IV [id number] [facility] 09/15 aztreonam recon soln Kamila Wolfe RN Valbenazine Tosylate 80 MG capsule Take 1 capsule by mouth Daily. 09/15 Valbenazine Tosylate 80 MG capsule QIE qieuser TRAZODONE HCL 150 MG TABS Take 3 tablets by mouth Every Night. 09/15 trazodone 40929274068 QIE qieuser SENNOSIDES-DOCUSAT E SODIUM 8.6-50 MG TABS Take 2 tablets by mouth 2 (Two) Times a Day As Needed for Constipation. sennosides-docusa te sodium 88979841102 QIE qieuser PROMETHAZINE HCL 25 MG TABS Take 1 tablet by mouth Every 6 (Six) Hours As Needed for Nausea or Vomiting. 09/15 promethazine 34927803832 QIE qieuser PROCHLORPERAZINE EDISYLATE 10 MG/2ML SOLN Infuse 2 mL into a venous catheter Every 8 (Eight) Hours As Needed (headache/migrai ne (give with iv benadryl)). 09/15 prochlorperazine edisylate 89929723306 QIE qieuser PEG 3350 17 GM PACK Take 17 g by mouth Daily. 09/15 polyethylene glycol 3350 00325043928 QIE qieuser ONETOUCH ULTRA STRP null blood sugar diagnostic 63797618348 QIE qieuser OMEPRAZOLE 40 MG CPDR Take 1 capsule by mouth Daily. 09/15 omeprazole 69886472802 QIE qieuser NIFEDIPINE ER 30 MG II28C-CQY Take 1 tablet by mouth Daily. 09/15 nifedipine 29494410215 QIE qieuser NICOTINE STEP 1 21 MG/24HR PT24 null nicotine 96439989537 QIE qieuser MELATONIN 5 MG TABS Take 1 tablet by mouth At Night As Needed (insomnia). 09/15 melatonin 40251650086 QIE qieuser LISINOPRIL 40 MG TABS Take 1 tablet by mouth Daily. 09/15 lisinopril 53686790595 QIE qieuser LIDOCAINE PAIN RELIEF MAX ST 4 % PTC Place 1 patch on the skin as directed by provider Daily. Remove & Discard patch within 12 hours or as directed by 09/15 lidocaine 56349091556 QIE qieuser LEVETIRACETAM 500 MG TABS Take 1 tablet by mouth Every 12 (Twelve) Hours. 09/15 levetiracetam 57225563678 QIE qieuser ONETOUCH DELICA PLUS [id number] null lancets 30968559240 QIE qieuser INSULIN LISPRO 100 UNIT/ML SOLN Inject 2-7 Units under the skin into the appropriate area as directed 4 (Four) Times a Day Before Meals & at Bedtime. 09/15 insulin lispro 81896600569 QIE qieuser insulin detemir (LEVEMIR) 100 UNIT/ML injection Inject 5 Units under the skin into the appropriate area as directed Every Morning. 09/15 LEVEMIR QIE qieuser HYDROXYZINE PAMOATE 25 MG CAPS Take 1 capsule by mouth 3 (Three) Times a Day As Needed for Itching. 01/18 hydroxyzine pamoate 96156750180 QIE qieuser GABAPENTIN 400 MG CAPS Take 2 capsules by mouth Every 8 (Eight) Hours for 4 days. 09/08 gabapentin 64593580217 QIE qieuser ENOXAPARIN SODIUM 40 MG/0.4ML SOSY Inject 0.4 mL under the skin into the appropriate area as directed Daily for 60 days. 11/02 enoxaparin 96608042065 QIE qieuser DOXYCYCLINE HYCLATE 100 MG CAPS Take 1 capsule by mouth 2 (Two) Times a Day for 14 days. 09/28 doxycycline hyclate 80433382726 QIE qieuser DOCUSATE SODIUM 100 MG CAPS Take 1 capsule by mouth 2 (Two) Times a Day for 15 days. 09/18 docusate sodium 82866011573 QIE qieuser DESVENLAFAXINE SUCCINATE ER 100 MG [id number]-QLU Take 2 tablets by mouth Daily. 09/15 desvenlafaxine succinate 77019588547 QIE qieuser CYCLOBENZAPRINE HCL 5 MG TABS Take 1 tablet by mouth 3 (Three) Times a Day As Needed for Muscle Spasms. 01/18 cyclobenzaprine 00297770167 QIE qieuser CETIRIZINE HCL 10 MG TABS Take 1 tablet by mouth Daily. 09/15 cetirizine 81523215356 QIE qieuser ANTACID CALCIUM 500 MG CHEW null calcium carbonate 96421491130 QIE qieuser BD PEN NEEDLE MICRO ULTRAFINE 32G X 6 MM null pen needle, diabetic 44123197254 QIE qieuser ATORVASTATIN CALCIUM 80 MG TABS Take 1 tablet by mouth Every Night. 09/15 atorvastatin 34526507412 QIE qieuser QULIPTA 60 MG TABS Take 1 tablet by mouth. 09/15 atogepant 53366762631 QIE qieuser ASPIRIN 325 MG TABS Take 1 tablet by mouth Daily. 09/15 aspirin 72804312069 QIE qieuser ALENDRONATE SODIUM 70 MG TABS Take 1 tablet by mouth Every 7 (Seven) Days. 09/15 alendronate 69286661339 QIE qieuser ACETAMINOPHEN 500 MG TABS Take 1 tablet by mouth Every 6 (Six) Hours As Needed for Mild Pain. 09/15 acetaminophen 89215966254 QIE qieuser ACETAMINOPHEN 325 MG TABS Take 2 tablets by mouth Every 6 (Six) Hours As Needed for Mild Pain. 09/15 acetaminophen 13019075606 QIE qieuser Medications Administered No information available. [...] Procedures Code Procedure Name Date Entry Date [id number] CBC with Differential 2023 CPT-50318 C- reactive protein CPT-sl [facility] [id number] CBC with Differential 2023 CPT-76607 C- reactive protein [id number], [id number] CPK CPT-33630 Sedimentation Rate (ESR) 202 10/20/22 CPT-62937 CMP Vital Signs Date Name Value Unit [...]
--- OUTSIDE RECORDS SUMMARY | 2025-01-25 15:04 | XMS_ITS | Encounter Summary ---
Author Organization Healthcare Address [address] [place] [address] Care Team Providers Care Aerospace Products Sales Engineer Name Role Phone Vasu Gutierres MD Primary Care Provider [phone]- [phone] Encounter Details Date Type Department Care Team (Late st Contact Info) Description 12/14/2024 Telephone [place] [facility] [address] [place] [address] Sweetie Hewitt, PA [address] [place] [address] Social History Tobacco Use Types [...] optimal time of day to reach caller: [phone] Note: Please do not reply to this [...] Description 02/03/2025 10:00 AM EDT Procedure Visit [facility] [address] [place] [address] Sweetie Hewitt, PA [address] [place] [address] 02/24/2025 10:00 AM EDT Appointment [facility] [address] [place] [address] 04/04/2025 10:40 AM EDT Office Visit [facility] [address] [place] [address] Sweetie Hewitt PA [address] [place] [address] documented as of this encounter Visit Diagnoses Not on filedocumented in this encounter Additional Health Concerns Assessment Noted Time A fall risk assessment has been complete d for the patient 12/02/2024 10:04 AM EDT A Body Mass Index follow-up plan has been documented for the patient 12/02/2024 10:09 AM EDT documented as of this encounter Care Teams Aerospace Products Sales Engineer Relationship Specialty Start Date End Date Vasu Gutierres MD [address] [place] [address] PCP - General 05/19/24 documented as of this encounter
--- OUTSIDE RECORDS SUMMARY | 2025-01-25 15:04 | XMS_ITS | Encounter Summary ---
Author Organization Healthcare Address [address] [place] [address] Care Team Providers Care Director Of Recruiting Name Role Phone Vasu Gutierres MD Primary Care Provider +1- [phone] Encounter Details Date Type Department Care Team [...] Description 02/03/2025 10:00 AM EDT Procedure Visit [facility] [address] [place] [address] Sweetie Hewitt PA [address] [place] [address] 02/24/2025 10:00 AM EDT Appointment [facility] [address] [place] [address] 04/04/2025 10:40 AM EDT [facility] Visit [facility] [address] [place] [address] Sweetie Hewitt PA [address] [place] [address] documented as of this encounter Visit Diagnoses Not on filedocumented in this encounter Additional Health Concerns Assessment Noted Time A fall risk assessment has been complete d for the patient 12/02/2024 10:04 AM EDT A Body Mass Index follow-up plan has been documented for the patient 12/02/2024 10:09 AM EDT documented as of this encounter Care Teams Director Of Recruiting Relationship Specialty Start Date End Date Vasu Gutierres MD [address] [place] [address] PCP - General 05/19/24 documented as of this encounter
--- OUTSIDE RECORDS SUMMARY | 2025-01-25 15:04 | XMS_ITS | Encounter Summary ---
Author Organization Healthcare Address [address] [place] [address] Care Team Providers Care Fats And Oils Loader Name Role Phone Pcp, No Primary Care Provider Vasu Be MD Primary Care Provider +1- [phone] Reason for Referral * Consultation (Routine) - Closed Specialty Diagnoses / Procedures Referred By Contac t Referred To Contact Neurology Diagnoses Chronic intractable headache, unspecified headache type Tardive dyskinesia History of drug abuse History of stroke Major depression in remission (CMS/[facility]) Mira Dolan MD [address] [place] [address] [place] [address] Phone: tel: fax: Luis Armando Weeks MD [address] [place] [address] Phone: tel: fax: Referral ID Status Reason Start Date Expiration Date V isits Requested Visits Authorized [id number] Closed Specialty Services Required 03/05/2022 09/04/2023 1 1 Encounter Details Date Type Department Care Team (Late st Contact Info) Description 03/05/2022 [facility] [address] [place] [address] Mira Dolan MD [address] [place] [address] [place] [address] Chronic intractable headache, unspecified headache type (Primary Dx); Tardive syndrome; Tardive dyskinesia; History of drug abuse (CMS/HCC); History of stroke; Major depression in remission ([facility]) Social History Tobacco Use Types Packs/Day Years [...] Description 02/03/2025 10:00 AM EDT Procedure Visit [facility] [address] [place] [address] Sweetie Hewitt PA [address] [place] [address] 02/24/2025 10:00 AM EDT Appointment [facility] [address] [place] [address] 04/04/2025 10:40 AM EDT Office Visit [facility] [address] [place] [address] Sweetie Hewitt PA [address] [place] [address] Scheduled Referrals Name Type Priority Associated Diagnoses Orde r Schedule Ambulatory referral to Neurology Outpatient Referral Routine Chronic intractable headache, unspecified headache type Tardive dyskinesia History of drug abuse (CMS/HCC) History of stroke Major depression in remission ([facility]) Ordered: 03/05/2022 documented as of this encounter [...] remission documented in this encounter Care Teams Fats And Oils Loader Relationship Specialty Start Date End Date Pcp, Radha [address] [place] [address] PCP - General Family Medicine 06/04/23 05/18/24 Vasu Gutierres MD [address] [place] [address] PCP - General 05/19/24 documented as of this encounter
--- OUTSIDE RECORDS SUMMARY | 2025-01-25 15:04 | XMS_ITS ---
Author Organization [facility] Care Team Providers Care Soda Dialyzer Name Role Phone Vasu Gutierres Unavailable Unavaila ble Allergies and adverse reactions Code CodeSystem Substance Reaction Severity StartDate Concern Status viibyrd Unknown 05/15/2017 active Toradol Unknown 05/15/[address] Sulfa Antibiotics Unknown 05/15/2017 active Seroquel Unknown 05/15/2017 active Saccharin Unknown 05/15/2017 active Relpax Unknown 05/15/2017 active Reglan Unknown 05/15/2017 active 7984 RXNORM Penicillin Skin reaction - finding (code- 973305906, SNOMED CT) Mild 05/15/2017 active [place] Unknown 05/15/2017 active 6813 RXNORM Methadone Unknown 05/15/2017 active Keflex Unknown 05/15/2017 active Imitrex Unknown 05/15/2017 active 4053 RXNORM Erythromycin Unknown 05/15/2017 active 3418 RXNORM Dihydroergotamine Unknown 05/15/2017 act claribel Cipro Unknown 05/15/2017 active Aspartame Unknown 05/15/2017 active Amerge Unknown 05/15/2017 active Care Team Name Role Address Phone Organization Dates Vasu Gutierres PCP [address], [place], [address], [place] (Office): [facility] 07/05/2021 - 07/05/2021 Goals Section Goals Description Status Target Date Goal is no further significa nt weight gain. Random blood sugar of 200 or less, fasting blood sugar of 165 or less. Free from chewing problems. PO of 50% or greater at meals. Active 10/04/2021 Immunizations Immunization Status Vaccine Details Vaccine Code CodeSystem Date Notes Influenza completed Influenza, high-dose, split virus, quadrivalent, injectable, preservative free 197 CVX created date: 05/15/2017 administer ed date: 04/24/2017 received at . Office Pneumovax Dose 1 completed cre ated date: 05/15/2017 administer ed date: 04/27/2015 received in 2014 TB 1 Step Mantoux (PPD) completed tuberculin skin test; unspecified formulation lotNumber: [id number] expiry: 10/12/2022 Mfg: Sandfi-pasteur Given 0.1 ml Left Forearm intradermally 98 CVX created date: 06/13/2021 consent date: 06/13/2021 administer ed date: 06/13/2021 TB 1 Step Mantoux (PPD) completed tuberculin skin test; unspecified formulation lotNumber: [id number] expiry: 06/05/2018 Mfg: Tubersol Given 0.1 ml Left Forearm intradermally 98 CVX created date: 05/15/2017 consent date: 05/15/2017 administer ed date: 05/15/2017 TB 2 Step Mantoux Skin Test completed tuberculin skin test; unspecified formulation lotNumber: [id number] expiry: 10/12/2022 Mfg: sanofi pasteur limited Given 0.1 ml Left Forearm intradermally Step 2 of Multi-step with next step required 98 CVX created date: 06/29/2021 consent date: 07/04/2021 administer ed date: 06/20/2021 neg TB 2 Step Mantoux Skin Test completed tuberculin skin test; unspecified formulation lotNumber: [id number] expiry: 10/12/2022 Mfg: sanfoi past unli Given 0.1 ml Right Forearm intradermally Step 1 of Multi-step 98 CVX created date: 06/26/2021 consent date: 06/25/2021 administer ed date: 06/20/2021 Allyson One Dose completed SARS-COV-2 (COVID-19) vaccine, vector non-replicating, recombinant spike protein-Ad26, preservative free, 0.5 mL 212 CVX created date: 06/13/2021 administer ed date: 05/26/2021 Allyson One Dose completed SARS-COV-2 (COVID-19) vaccine, vector non-replicating, recombinant spike protein-Ad26, preservative free, 0.5 mL 212 CVX created date: 06/13/2021 administer ed date: 10/21/2020 Mental Status Section Date Assessment Total Score Description 07/04/2021 CAM 0 No delirium ind icated 06/20/2021 BIMS 15 cognitively int act CAM 0 No delirium ind icated PHQ-9 07 mild depression Problems Problem # Description Date of onset Resolved Date Code CodeSystem Concern Status 1 ALTERED MENTAL STATUS, UNSPECIFIED 06/13/[address] active 2 ANXIETY DISORDER, UNSPECIFIED 06/13/[address] active 3 ATHEROSCLEROTIC HEART DISEASE OF [place] CORONARY ARTERY WITHOUT ANGINA PECTORIS 06/13/[address] active 4 CHRONIC OBSTRUCTIVE PULMONARY DISEASE, UNSPECIFIED 06/13/[address] active 5 DEHYDRATION 06/13/[address] active 6 DEPRESSION, UNSPECIFIED 06/13/[address] active 7 DYSPHAGIA, OROPHARYNGEAL PHASE 06/13/[address] active 8 ESSENTIAL (PRIMARY) HYPERTENSION 06/13/[address] active 9 GASTRO-ESOPHAGEAL REFLUX DISEASE WITHOUT ESOPHAGITIS 06/13/[address] active 10 HYPERLIPIDEMIA, UNSPECIFIED 06/13/[address] active 11 HYPOTHYROIDISM, UNSPECIFIED 06/13/[address] active 12 MAJOR DEPRESSIVE DISORDER, RECURRENT, UNSPECIFIED 06/13/[address] active 13 MIGRAINE, UNSPECIFIED, NOT INTRACTABLE, WITHOUT STATUS MIGRAINOSUS 06/13/[address] active 14 MUSCLE WEAKNESS (GENERALIZED) 06/13/[address] active 15 OTHER SPECIFIED ARTHRITIS, UNSPECIFIED SITE 06/13/[address] active 16 PATIENT'S OTHER NONCOMPLIANCE WITH MEDICATION REGIMEN 06/13/[address] active 17 PERSONAL HISTORY OF BENIGN NEOPLASM OF THE BRAIN 06/13/[address] active 18 PERSONAL HISTORY OF TRANSIENT ISCHEMIC ATTACK (TIA), AND CEREBRAL INFARCTION WITHOUT RESIDUAL DEFICITS 06/13/[address] active 19 TYPE 2 DIABETES MELLITUS WITH HYPERGLYCEMIA 06/13/[address] active 20 UNSTEADINESS ON FEET 06/13/[address] active 21 CHRONIC MIGRAINE WITHOUT AURA 05/15/20 17 06/13/[address] completed 22 HYPERLIPIDEMIA, UNSPECIFIED 05/15/20 17 06/13/[address] completed 23 RAIL DIRECTOR (CURRENT) USE OF INSULIN 05/15/20 17 06/13/[address] completed 24 NICOTINE DEPENDENCE, UNSPECIFIED, UNCOMPLICATED 05/15/[address] active 25 OTHER SPECIFIED ANXIETY DISORDERS 05/15/20 17 06/13/[address] completed 26 OTHER SYMPTOMS AND SIGNS INVOLVING THE MUSCULOSKELETAL SYSTEM 05/15/20 17 06/13/[address] completed 27 TUBAL LIGATION STATUS 05/15/20 17 06/13/[address] completed 28 TYPE 2 DIABETES MELLITUS WITH DIABETIC POLYNEUROPATHY 05/15/20 17 06/13/[address] completed 29 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, INITIAL ENCOUNTER 05/15/20 17 06/13/[address] completed Reason for Referral No Reasons for Referral Entered Social History Social History Observation Description Start Date End Date Code Code System Current Smoking Status Tobacco smoking consumption unknown 171725774 SNOMED CT Sex Assigned At Female 1965 80578-7 [facility] Gender Identity Vital Signs Code Code System Vitals Name Values and Units Timing Information 2339-0 [facility] Blood Sugar Value=90.0 Units=mg/dL 07/04/2021 8310-5 [facility] Body Temperature Value=98.5 Units= F 07/04/2021 76665-4 [facility] O2 % BldC Oximetry Value=97.0 Units= % 07/04/2021 66205-7 [facility] Weight Bsubk=933.2 Units=Lbs 13595-9 [facility] Pain Level Value=2.0 07/03/2021 9279-1 [facility] Respiratory Rate Value=20.0 Units=/m in 07/01/2021 8462-4 [facility] Blood Pressure-Diastolic Value=80 Un its=mmHg 07/01/2021 8480-6 [facility] Blood Pressure-Systolic Ddnnq=432 Un its=mmHg 07/01/2021 8867-4 [facility] Heart rate Value=88.0 Units=/min 06/2021 8302-2 [facility] Height Value=66.0 Units=Inches 06/13/2021
--- OUTSIDE RECORDS SUMMARY | 2025-01-25 15:04 | XMS_ITS | Encounter Summary ---
Author Organization Healthcare Address [address] [place] [address] Care Team Providers Care Plugman Name Role Phone Vasu Gutierres MD Primary Care Provider +1- [phone] Encounter Details Date Type Department Care Team (Late st Contact Info) Description 12/15/2024 Telephone [place] [facility] [address] [place] [address] Sweetie Hewitt, PA [address] [place] [address] Social History Tobacco Use Types [...] optimal time of day to reach caller: [phone] Note: Please do not reply to this message. Follow-up communication and further actions as a result of this message need to be communicated with the patient directly, if the patient is not active onMyChart. If the patient is active on MyChart, they will receive notification of the communication/outcome via [employer], Inchart. documented in this encounter Plan of Treatment Upcoming Encounters Date Type Department Care Team (Late st Contact Info) Description 02/03/2025 10:00 AM EDT [facility] [address] [place] [address] Sweetie Hewitt PA [address] [place] [address] 02/24/2025 10:00 AM EDT Appointment [facility] [address] [place] [address] 04/04/2025 10:40 AM EDT [facility] [address] [place] [address] Sweetie Hewitt PA [address] [place] [address] documented as of this encounter Visit Diagnoses Not on filedocumented in this encounter Additional Health Concerns Assessment Noted Time A fall risk assessment has been complete d for the patient 12/02/2024 10:04 AM EDT A Body Mass Index follow-up plan has been documented for the patient 12/02/2024 10:09 AM EDT documented as of this encounter Care Teams Plugman Relationship Specialty Start Date End Date Vasu Gutierres MD [address] [place], [place] [address] PCP - General 05/19/24 documented as of this encounter
--- OUTSIDE RECORDS SUMMARY | 2025-01-25 15:05 | XMS_ITS | Encounter Summary ---
Author Organization Healthcare Address [address] [place] [address] Care Team Providers Care Hemodialysis Lab Technician Name Role Phone Vasu Gutierres MD Primary Care Provider +1- [phone] Encounter Details Date Type Department Care Team (Late st Contact Info) Description 12/01/2024 Telephone [facility] [address] [facility] [address] [place] [address] Stella Gilmore APRN [address] [place] [phone] Social History Tobacco Use Types Packs/Day Years [...] an appointment for [facility] infusion on 12/02/2024. BLOCK HANDLER called patient to complete pre-infusion screening questions. Unable to speak with patient. Spoke with nurse, confirmed appointment time, date and location. Duration of phone call: 1 minutes Stella Gilmore APRN [facility] documented in this encounter Plan of Treatment Upcoming Encounters Date Type Department Care Team (Late st Contact Info) Description 02/03/2025 10:00 AM EDT Procedure Visit [facility] [address] [place] [address] Sweetie Hewitt, PA [address] [place] [address] 02/24/2025 10:00 AM EDT Appointment [facility] [address] [place] [address] 04/04/2025 10:40 AM EDT Office Visit [facility] [address] [place] [address] Sweetie Hewitt, PA [address] [place] [address] documented as of this encounter Visit Diagnoses Not on filedocumented in this encounter Additional Health Concerns Assessment Noted Time A fall risk assessment has been complete d for the patient 11/01/2024 12:34 PM EDT A Body Mass Index follow-up plan has been documented for the patient 11/01/2024 1:49 PM EDT documented as of this encounter Care Teams Hemodialysis Lab Technician Relationship Specialty Start Date End Date Vasu Gutierres MD [address] [place] [address] PCP - General 05/19/24 documented as of this encounter
--- OUTSIDE RECORDS SUMMARY | 2025-01-25 15:05 | XMS_ITS | Clinical Summary ---
Author Organization [facility] Address [address] [place] [address] Care Team Providers Care Anode Machine Operator Name Role Phone Vasu Gutierres MD Primary Care Provider +1- [phone] Allergies Active Allergy Reactions Criticality Noted Date [...] (one) time each day. Active Continuous Glucose Field Research Assistant (Astrum SolarStyle John 14 [place]) device 3 Active Continuous Glucose Sensor (FreeStyle John 2 Sensor) [facility] [place] (CHANGE EVERY 14 D AYS. [...] mouth 3 (three) times a day. Active [employer] GrilleTouch Ultra Test test strip USE TO TEST 4 TIMES DAILY DIRECTED. Active hydrOXYzine pamoate (Vistaril) 25 MG capsule 4 Active Levemir FlexPen 100 UNIT/ML injection pen 4 Active BD Pen Needle Micro U/F 32G X 6 MM misc 2 (two) times a day. as directed 4 Active Lancets (OneTouch Delica Plus Mbscli30A) misc 4 (four) times a day. 4 [...] Type Department Care Team Description 12/15/2024 Telephone [facility] [address] [place] [address] Sweetie Hewitt PA 12/14/2024 Telephone [facility] [address] [place] [address] Sweetie Hewitt PA 12/02/2024 9:58 AM EDT - 12/02/2024 11:59 PM EDT Hospital Encounter [facility] [address] [facility] [address] [place] [address] Migraine without aura and without status migrainosus, not intractable (Primary Dx) Discharge Disposition: Home or Self Care 12/02/2024 Travel 12/01/2024 Telephone [facility] [address] [place] [address] Stella Gilmore ESTEBAN 11/01/2024 12:30 PM EDT Procedure Visit [facility] [address] [place] [address] Sweetie Hewitt PA Migraine without aura and without status migrainosus, not intractable (Primary Dx) 11/01/2024 Travel 10/26/2024 Telephone [facility] [address] [place] [address] Sweetie Hewitt PA HCN - [...] 10:00 AM EDT Procedure Visit [facility] [address] [place] [address] Sweetie Hewitt, PA [address] [place] [address] 02/24/2025 10:00 AM EDT Appointment [facility] [address] [place] [address] 04/04/2025 10:40 AM EDT Office Visit [facility] [address] [place] [address] Sweetie Hewitt, PA [address] [place] [address] Health Maintenance Due Date Last Done Comments [facility]-Depression Screening 1965 [facility]-HIV Screening 1965 [facility]-Hepatitis C Screening 1965 [facility]-Medicare Annual Wellness (AWV) 1965 [facility]-/Child/Adol SDOH Screenings 1965 [facility]- SDOH Screenings 1981 [facility]-Adult SDOH Screenings 1981 [facility]-Pap Smear 02/26/1984 [facility]-Cervical Cancer Screening 1993 [facility]-HPV/Cotest 1993 CT Colonography 02/26/2008 Colonoscopy 02/26/2008 FIT-DNA 02/26/2008 FIT 02/26/2008 FOBT 02/26/2008 Sigmoidoscopy 02/26/2008 [facility]-Colorectal Cancer Screening 02/26/2008 [facility]-Breast Cancer Screening 2013 [facility]-Zoster Vaccines (1 of 2) 2013 [facility]-Pneumococcal Vaccine: 50+ Years (2 of 2 - PCV) 10/25/2020 10/26/2019, 04/18/2014 [id number] Vaccine (3 - 2023- season) 2024 05/26/2021, 10/21/2020 [facility]-Influenza Vaccine (#1) 03/21/202504/02, 05/26/2021, 10/26/2019, Additional history exists [facility]-DTaP,Tdap,and Td [...] age to complete this topic Insurance [place] [facility] MEDICARE Care Teams Anode Machine Operator Relationship Specialty Start Date End Date Vasu Gutierres MD [address] [place] [address] PCP - General 05/19/24
--- OUTSIDE RECORDS SUMMARY | 2025-01-25 15:05 | XMS_ITS | Encounter Summary ---
Author Organization Healthcare Address [address] [place] [address] Care Team Providers Care Shipping Helper Name Role Phone Vasu Gutierres MD Primary Care Provider +1- [phone] Reason for Visit * Reason Onset Date Comments [facility] - Patient Message 10/26/2024 Clinic not es to coordinate plan of care Encounter Details Date Type Department Care Team (Late st Contact Info) Description 10/26/2024 Telephone [facility] [address] [place] [address] Sweetie Hewitt, PA [address] [place] [address] [facility] - Patient Message (Clinic [...] 24 notes to PCP at requested at [phone] the fax given the notes have been sent along with imaging as requested * Telephone Encounter - Vel De La Garza - 10/26/2024 2:25 PM EDT Patient Phone Message Reason for Call: PCP requesting clinic notes from last 2 appts including botox and infusions faxed to [phone] Best contact number and optimal time of day to reach caller: Reachable at [phone] Note: Please do not reply to this message. Follow-up communication and further actions as a result of this message need to be communicated with the patient directly, if the patient is not active onMyChart. If the patient is active on MyChart, they will receive notification of the communication/outcome via [employer]. documented in this encounter Plan of Treatment Upcoming Encounters Date Type Department Care Team (Late st Contact Info) Description 02/03/2025 10:00 AM EDT Procedure Visit [facility] [address] [place] [address] Sweetie Hewitt, PA [address] [place] [address] 02/24/2025 10:00 AM EDT Appointment [facility] [address] [place] [address] 04/04/2025 10:40 AM EDT Office Visit [facility] [address] [place] [address] Sweetie Hewitt PA [address] [place] [address] documented as of this encounter Visit Diagnoses Not on filedocumented in this encounter Additional Health Concerns Assessment Noted Time A fall risk assessment has been complete d for the patient 09/28/2024 10:33 AM EDT A Body Mass Index follow-up plan has been documented for the patient 09/29/2024 9:14 AM EDT documented as of this encounter Care Teams Shipping Helper Relationship Specialty Start Date End Date Vasu Gutierres MD [address] [place] [address] PCP - General 05/19/24 documented as of this encounter
[2025-01-25 15:08] VITALS: BP 123/91; PULSE 106; RESP 20; TEMP 36.9; O2SAT 97
[2025-01-25] MEDS: BUTORPHANOL TARTRATE 2 MG/ML VIAL 3 MG IM (15:08)
[2025-01-25] MEDS: PROMETHAZINE HCL 25MG/ML 1ML VIAL 25 MG IM (15:08)
== END 2025-01-25 15:38 | disposition home or self-care (01) ==
LOC: INF 15:02
PROVIDERS: PCP Family Medicine; Visit Provider Family Medicine
DX: G43.C1 Periodic headache syndromes in child or adult, intractable (principal)
CPT/HCPCS: 96372; J0595; J2550

== ENCOUNTER 2025-02-17 14:01 | Outpatient (CLI) | payer MEDICARE, MEDICAID, SELFPAY ==
--- OUTSIDE RECORDS SUMMARY | 2024-08-27 04:00 | XMS_ITS | Continuity of Care Document ---
Author Organization [facility] Address [address] [place] [address] Phone Care Team Providers Care Dust Collector Name Role Phone JAMAR ZAMORA MD Unavailable Unavailable Allergies, Adverse Reactions, Alerts Substance Reaction Status Criticality loratadine Active No Information FEXOFENADINE HCL Active No Informat ion Medications Medication Instructions Dosage Effective Dates (start - stop) Status Comments ALLOPURINOL (unknown strength) take 1 tablet by oral route 2 times every day Not Available - Active OZEMPIC (unknown strength) inject by subcutaneous route every week on the same day of each week Not Available - Active TRESIBA FLEXTOUCH U-100 (unknown strength) inject by subcutaneous route as per insulin protocol Not Available - Active MAGNESIUM (unknown strength) Not Available - Active METFORMIN HCL (unknown strength) Not Available - Active ATORVASTATIN CALCIUM (unknown strength) Not Available - Active LISINOPRIL (unknown strength) Not Available - Active FUROSEMIDE (unknown strength) Not Available - Active FISH OIL (unknown strength) Not Available - Active Ozempic 0.25 mg or 0.5 mg (2 mg/3 mL) subcutaneous pen injector inject (0.5MG) by subcutaneous route every week on the same day of each week 0.5 MG - No Longer Active allopurinol 100 mg tablet take 1 tablet by oral route 2 times every day 100 MG - No Longer Active CINNAMON (unknown strength) Not Available - No Longer Active B-12 (unknown strength) Not Available - No Longer Active Procedures Procedure Date EYE EXAM & TREATMENT CMPTR OPHTH IMG OPTIC NERVE OFFICE/OUTPATIENT VISIT, EST EYE EXAM & TREATMENT EYE EXAM & TREATMENT EYE EXAM & TREATMENT REFRACTION CMPTR OPHTH IMG OPTIC NERVE EYE EXAM & TREATMENT REFRACTION CMPTR OPHTH IMG OPTIC NERVE EYE EXAM & TREATMENT REFRACTION EYE EXAM & TREATMENT REFRACTION EYE EXAM & TREATMENT REFRACTION EYE EXAM, NEW PATIENT Advance Directives Directive Yes / No Effective Date File Name No Information Encounters Encounter Description Practice Location Reason(s) For Visit Diagnoses Date Provider Providers Copied on Encounter [facility], [facility], [address] [place] [address], [id number], tel:[phone] [place] OFF[facility] IDDM (chief complaint)PC O (chief complaint)PV D (chief complaint)op tic disc cupping (chief complaint) Type 1 diabetes mellitus without complication sOther secondary cataract, bilateralVit reous degeneration , left eyeGlaucomat ous optic atrophy, right eye 5 SERA MESSER. [address] [place] [address], [id number], [place]. tel:[phone] Specialist : Dang García MD, [address] [facility] [address], [place], [address]. tel:[phone] OFFICE/OUTPA TIENT VISIT, EST [facility], [facility], [address] [place] [address], [id number], tel:[phone] [place] OFFICE PVD f/u OS (chief complaint) Vitreous degeneration , left eyeOther secondary cataract, bilateral 4 ZINA CHANDLER. [address] [place] [address], [id number], [place]. tel:[phone] [facility], [address] [place] [address], [id number], [place] tel:[phone] [place] [address] OFFICE EOV (chief complaint) Vitreous degeneration , left eye - 4 ZINA CHANDLER. [address] [place] [address], [id number], [place]. tel:[phone] [place] [address] [facility], [address] [place] [address], [id number], [place] [phone] [place] [address] OFFICE Diabetic Eye Exam (chief complaint)PC O (chief complaint)di sc cupping (chief complaint) Type 1 diabetes mellitus without complication sOther secondary cataract, bilateralGla ucomatous optic atrophy, right eye 3 ZAMORA JAMAR. [address] [place] [address], [id number], [place]. tel:[phone] Specialist : Dang García MD, [address] [facility] [address], [place], [address]. tel:[phone] [facility], [facility], [address] [place] [address], [id number], [place] tel:[phone] [place] [address] OFFICE Full Exam (chief complaint)Di abetes (chief complaint) Type 1 diabetes mellitus without complication sGlaucomatou s optic atrophy, right eyeOther secondary cataract, bilateral May- 2 ZAMORA JAMAR. [address] [place] [address], [id number], [place]. tel:[phone] [place] [address] [facility], [address] [place] [address], [id number], [place] tel:[phone] [place] [address] OFFICE Diabetic exam (chief complaint)Co vid screening negative (chief complaint) Type 1 diabetes mellitus without complication sOther secondary cataract, bilateralGla ucomatous optic atrophy, right eye Oct- 1 ZAMORA JAMAR. [address] [place] [address], [id number], [place]. tel:[phone] [facility], [address] [place] [address], [address] [place] [address], tel:[phone] [place] [address] OFFICE Diabetes Examination (chief complaint)PC Fibrosis (chief complaint) Type 1 diabetes mellitus without complication sOther secondary cataract, bilateral 0 ZAMORA JAMAR. [address] [place] [address], [id number], [place]. [phone] [place] [address] [facility], [address] [place] [address], [address] [place] [address], tel:[phone] [place] [address] OFFICE IDDM (chief complaint)PC Fibrosis (chief complaint) Other secondary cataract, bilateralTyp e 1 diabetes mellitus without complication s 9 ZAMORA JAMAR. [address] [place] [address], [address] [place] [address], [place]. tel:[phone] [place] [address] [facility], [facility], [address] [place] [address], [address] [place] [address], tel:[phone] [place] [address] OFFICE NIDDM (chief complaint)PC Fibrosis (chief complaint) Type 2 diabetes mellitus without complication sOther secondary cataract, bilateral 9-201 8 ZAMORA JAMAR. [address] [place] [address], [id number], [place]. tel:[phone] [place] [address] [facility], [facility], [address] [place] [address], [address] [place] [address], tel:[phone] [place] [address] OFFICE Diabetes Examination (chief complaint)sh ooting pain (chief complaint)h/ o amblyopia (chief complaint) Diabetes Mellitus Type 2, Uncomplicate dAfter-catar act, obscuring visionLens replaced by other meansKeratoc onjunctiviti s sicca, not specified as sjogren's Mar-0 6-201 5 ZAMORA JAMAR. [address] [place] [address], [id number], [place]. tel:[phone] Family History Family Member Type Diagnosis Age At Onset Mother Problem (finding) Cardiovascular disease Mother Problem (finding) Family history of Asthm a Father Problem (finding) Family history of Cance r, colon Mother Problem (finding) diabetes mellitus type 2 Mother Problem (finding) Family history of Glauc nohemy Brother Problem (finding) Family history of Diabe bethany mellitus Mother Problem (finding) glaucoma Mother Problem (finding) Family history of Diabe bethany mellitus Father Problem (finding) Family history of Arthr itis Sister Problem (finding) Family history of Diabe bethany mellitus Mother Problem (finding) Family history of Hyper tension Father Problem (finding) cancer of colon Payers Payer name Insurance type Covered constitution party ID Authoriza tion(s) ANTH/Blue Cross Blue [facility] [id number] 2 Social History Type Description Quantity Date Captured Comments Alcohol Use Details Caffeine Use Details Unknown Tobacco Use Status Smoking Status Current every day smoker Smoking Tobacco Use Details Cigarette: Age Started: 15, Age Stopped: 45, Years Used 30 Cigarette: No Details Available Non-Smoking Tobacco Use Details : No Details Available : No Details Available Sex Female Sexual Orientation Lesbian, pino or homosexual Gender Identity Female Chief Complaint And Reason For Visit From encounter dated '08/27/2024 08:00'. IDDM (chief complaint). Description: The 59 year old client presents for evaluation of IDDM in the right eye and left eye. Dr. Dang García follows patient for diabetes- last A1c reading was 5.6 and BS reading this morning was 98. PCO (chief complaint). Description: The patient is present for evaluation of PCO in the right eye and left eye. Pt states vision is stable, unchanged. Happy with readers. PVD (chief complaint). Description: The patient is present for evaluation of PVD in the left eye. Pt states she is still seeing the floater she had in February and sees a new one as well. Denies havingany flashing lights. optic disc cupping (chief complaint). Description: The patient is present for evaluation of optic disc cupping in the right eye. RNFL done today. Reason For Referral Reason For Referral No Information Plan Of Treatment Date Type Action Status Goal Tobacco cessation counseling completed Appointment Citlali Vivas BOOKED Patient Education The Eye: Anatomy Sketch completed Patient Education Learning About Your Eye s completed Patient Education Health Informa tion for You: MedlinePlus Connect completed Patient Education Health Information for You: MedlinePl~ completed Patient Education Health Information for You: MedlinePl~ completed Patient Education Learning About Your Eye s completed Patient Education Health Information for You: MedlinePl~ completed Patient Education Health Information for You: MedlinePl~ completed History Of Present Illness Encounter Date Complaint History Of Prese nt Illness IDDM The 59 year old client presents for evaluation of IDDM in the right eye and left eye. Dr. Dang García follows patient for diabetes- last A1c reading was 5.6 and BS reading this morning was 98. PVD The patient is p resent for evaluation of PVD in the left eye. Pt states she is still seeing the floater she had in February and sees a new one as well. Denies having any flashing lights. PCO The patient is p resent for evaluation of PCO in the right eye and left eye. Pt states vision is stable, unchanged. Happy with readers. optic disc cupping The patient i s present for evaluation of optic disc cupping in the right eye. RNFL done today. PVD f/u OS The 59 year old client presents for evaluation of PVD f/u OS. Patient states she is still seeing the floaters but does not have any new floaters or flashes of light. EOV The 58 year old client presents for an EOV. Pt states she noticed some floaters OS rashaad 1 month ago with occ flashes of light. After rashaad 1 week she developed another floater in the OS eye that is more constant in her vision. Pt denies any recent fall or hit to the head. Pt states the OD eye is fine. Diabetic Eye Exam The 58 year ol d client presents for evaluation of Diabetic Eye Exam in the right eye and left eye. Pt states her last A1C was 5.6. Pt is being followed by Dang García MD and Lalitha Chan APRN PCO The patient is p resent for evaluation of PCO in the right eye and left eye. Pt states that her vision is doing well, only needing to wear reading glasses occasionally disc cupping The patient is p resent for evaluation of disc cupping in the right eye. Currently monitoring without any drops Full Exam The 57 year old female presents for evaluation of Full Exam in the right eye and left eye. Patient states no visual changes, patient denies any visual disturbances or problems. Patient states she hardly wears her glasses, prefers OTC reading glasses. Diabetes The patient is p resent for evaluation of Diabetes in the right eye and left eye. Patient currently on medication management with insulin, monitored by Dr. Chan. Patient last A1C was 6.2. Diabetic exam Pt. presents for diabetic exam. States since BS have been terrible. Has been better over the few weeks. BS this am 92. Last Hgb A1C 7.6 about 5 months ago. Has appt. with Endo in a couple of weeks. States vision doing well. No vision change noted. Denies difficulty reading small print, seeing TV, seeing road signs and no difficulty driving at night, no glare issues. States she only reading glasses. Has gotten Rx glasses in the past but doesn't like them. Covid screening negative Diabetes Examination The 54 Year old female presents for evaluation of Diabetes Examination. Pt is followed by Lalitha Chan APRN. Last A1C was 6.2. Last daily reading was 110. 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 Pt is not currently wearing any distance correction. Occasionally wearing OTC readers. Pt denies vision changes, glare and or halos. IDDM The 53 Year old female presents for IDDM, letter to Lalitha Chan APRN. Patient monitors BS closely. Last BS reading was 218 this am (high), last A1C was 6.7. Insulin started about 1 year ago. PC Fibrosis The patient pres ents for PC Fibrosis in the right eye and left eye. Patient denies any VA changes or concerns. NIDDM The 52 Year old female presents for NIDDM, letter to Lalitha Chan APRN. Patient monitors BS somewhat closely. Last BS reading was around , patient unsure of last A1C was. PC Fibrosis The patient pres ents for PC Fibrosis in the right eye and left eye. Patient denies any VA changes or concerns. shooting pain The patient comp lains of shooting pain in the right eye and left eye. This happens only about one a month. She was told in the past that this was related to dry eye and finds that this occurs less when she uses artificial tears. Diabetes Examination The 49 Year old female presents for Diabetes Examination. She has been NIDDM for about 10 yrs. She checks her BS at home, which was in the 300's fasting this am. Last A1C was 6.3 about 2 mos ago. She states that it has been high lately due to Furosemide medication, which was added about a month ago. She is seeing Renetta Arevalo APRN, today for this. No vision changes since last exam 2 yrs ago. Letter to Renetta Arevalo APRN. h/o amblyopia The patient has h/o amblyopia in the right eye. She states that she was diagnosed as a child and given patch/exercises to do, which she did not. OD has always had poorer vision than OS. Functional Status Date Functional Assessmen t No Information Instructions Date Instruction Additional Infor hermilo Return in 1 year coni Zamora M.D. for Full Exam. 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 for Follow up. Related to Vitreous degeneration, left eye Impression/Plan Related to Vitre ous degeneration, left eye Return in 1 year coni Zamora M.D. for Full Exam. 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 for Full Exam. 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 for Full Exam , OCT (ON). 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 for Full Exam. Related to Type 1 diabetes mellitus without complications Impression/Plan Related to Other secondary cataract, bilateral Impression/Plan Related to Type 1 diabetes mellitus without complications Return in 1 year coni Zamora M.D. for Full Exam. Related to Type 1 diabetes mellitus without complications Impression/Plan Related to Type 1 diabetes mellitus without complications Impression/Plan Related to Other secondary cataract, bilateral Return in 1 year coni Zamora M.D. for Full Exam. Related to Type 2 diabetes mellitus without complications Impression/Plan Related to Type 2 diabetes mellitus without complications Impression/Plan Related to Other secondary cataract, bilateral Return in 1 year coni Zamora M.D. for Full Exam. Related to Diabetes Mellitus Type 2, Uncomplicated Impression/Plan - Di abetes type II: no background retinopathy, no signs of neovascularization noted. Discussed ocular and systemic benefits of blood sugar control. Related to Diabetes Mellitus Type 2, Uncomplicated Follow up - Return i n 1 year with Jamar Zamora M.D. for Full Exam. Related to Diabetes Mellitus Type 2, Uncomplicated Impression/Plan - PC fibrosis is present but is not affecting the patient's vision at the present time. No treatment currently recommended. The patient will monitor vision changes and contact us with any decrease in vision. Related to After-cataract, obscuring vision Assessments Type Assessment Date assessment Type 1 diabetes mellitus without complications assessment Other secondary cataract, bilate ral assessment Vitreous degeneration, left eye assessment Glaucomatous optic atrophy, righ t eye impression Type 1 diabetes mellitus without complications: E10.9 impression Other secondary cataract, bilate ral: H26.493 impression Vitreous degeneration, left eye: H43.812 impression Glaucomatous optic atrophy, righ t eye: H47.231 Patient Care Teams Name Effective Dates (start - stop) Status Members No Information
--- OUTSIDE RECORDS SUMMARY | 2024-10-28 10:15 | XMS_ITS ---
[facility] Address [address] [facility] [address] [place] [id number] Care Team Providers Care Engraver Tire Mold Name Role Phone Samuel Gutierres Primary Care Provider Allergies Allergen (clinical drug ingredient) Drug/Non Drug Allergy [...] itching Drug Allergy Active REASON FOR VISIT migraine Medications Medication SIG (Take, Route, Frequency, Duration) Notes Start Date End Date Status Fluticasone Propionate 50 MCG/ACT 2 spray in each nostril Nasally once a day as needed 10/07/2024 Active FreeStyle John 14 Day [place]agoner - as directed Active Vyepti 100 MG/ML as directed Intravenous Active Alendronate Sodium 70 mg Take 1 tablet o nce weekly 30 minutes before the first food, beverage or medicine of the day with plain water; Duration: 28 Active FreeStyle John 2 Sensor - USE DIRECT ED (CHANGE EVERY 14 D AYS.; Duration: 28 Active Ingrezza 80 MG 1 cap(s) orally At B ed Time Active OneTouch Ultra - USE TO TEST 4 TIMES DAILY DIRECTED. Active Diphenoxylate-Atropine 2.5-0.025 MG 1 tab(s) Orally q6h prn diarrhea 08/18/2024 Active OneTouch SureSoft Lancing Dev - four times a day, PRN 12/31/2022 Acti ve Gabapentin 800 MG 1 tab(s) orally 3 ti mes a day; Duration: 30 day(s) 09/28/2024 Active BD Pen Needle Micro U/F 32G X 6 MM USE DIRECTED TWICE DAILY.; Duration: 50 Active Glucerna Shake - 240 ml Orally once daily 04/22/20 Active Ibuprofen 800 MG 1 tablet with food o r milk as needed Orally every 8 hrs prn 08/05/2024 Active Lantus SoloStar 100 UNIT/ML 20 units Sub cutaneous once daily 08/12/2024 Active Promethazine HCl 25 MG 1 tab(s) Orally t wo times a day as needed Active Lisinopril 40 MG 1 tablet Orally Once a day; Duration: 30 day(s) Active OneTouch FinePoint Lancets - Four times a day Active NIFEdipine ER 30 MG 1 tab(s) Orally Once a day; Duration: 30 day(s) Active Qulipta 60 MG 1 tab(s) orally At B ed Time Active Desvenlafaxine ER 100 MG 1 tab(s) orally At Bed Time Active Lidocaine 4 % 1 patch Externally O nce a day prn 10/07/2023 Active Cetirizine HCl 10 MG 1 tablet Orally onc e daily Active tiZANidine HCl 4 MG 1 tablet Orally Thre e times a day Active Omeprazole 40 MG 1 cap(s) Orally once daily Active Melatonin 5 MG 1 tab Orally At Bed Time; Duration: 30 day(s) 10/07/2023 Active Aspirin 325 MG 1 tab(s) orally once a day; Duration: 30 day(s) Active Vistaril 25 MG 1 cap(s) orally thre e times a day as needed; Duration: 30 days Active Tums 500 MG 2 tablet Orally four times a day as needed 05/06/2023 Active traZODone HCl 150 MG 1 tab(s) orally onc e a day (at bedtime) Active Acetaminophen 325 MG 2 tab(s) Orally q6h prn Active Glucagon Emergency 1 MG as directed Injection 05/21 Active Keppra 500 MG 1 tablet Orally Two times a day Active ONE TOUCH GLUCOMETER DIRECTED USE DIRECTED 08/15/2021 Active Constitution Medical InvestorsTouch Ultra 2 w/Device as directed 12/31/2022 Active ONE TOUCH TEST STRIPS DIRECTED TESTS FOUR TIMES A DAY 08/15/2021 Active Atorvastatin Calcium 80 MG 1 tab(s) oral ly once a day in the evening Active GLUCOMETER DIRECTED TEST QD 07/09/2021 Active Farxiga 10 MG 1 tab(s) Orally once a day Active Problems Problem Type SNOMED Code ICD Code Onset Dates Problem Status W/U Status Risk Notes Problem Tardive dyskinesia (971815022) Tardive dyskinesia (G24.01) Active confirmed Vital Signs Blood pressure systolic 118 mm Hg 10/29/19 25 Blood pressure diastolic 74 mm Hg 025 Heart Rate 67 /min 10/28/2024 Height 63.50 in 10/28/2024 Weight 136.6 lbs 10/28/2024 BMI 23.82 kg/m2 10/28/2024 Encounters Encounter Location Date Provider Diagnosis [facility] [address] [facility] [address] [place], [place] [id number] 10/28/2024 Samuel Gutierres Intractable periodic headache syndrome G43.C1 ; Type 2 diabetes mellitus with diabetic polyneuropathy E11.42 ; Tardive dyskinesia G24.01 and BMI 23.0-23.9, adult Z68.23 Assessments Encounter Date Diagnosis (ICD Code) Assessment Notes Treatment Notes Treatment Clinical Notes Section Notes 10/28/2024 Intractable periodic headache syndrome (ICD-10 - G43.C1) Order provided for injection of Stadol 3 mg and Phenergan 50 mg IM at [facility] today. Continue with plan of care as outlined by the [facility]. 10/28/2024 Type 2 diabetes mellitus with diabetic polyneuropathy (ICD-10 - E11.42) 10/28/2024 Tardive dyskinesia (ICD-10 - G24.01) 10/28/2024 BMI 23.0-23.9, adult (ICD-10 - Z68.23) Plan Of Treatment Treatment Notes Assessment Notes Intractable periodic headache syndrome O rder provided for injection of Stadol 3 mg and Phenergan 50 mg IM at [facility] today. Next Appt Details Follow Up: 3 Months, Reason: Progress Notes * WIL PITTMANB:1965 (59 yo F)Acc No.[id number]:10/28/2024 Progress Notes Patient: JACI HERNANDEZ Provider: Samuel Gutierres M.D. :1965 A ge:59 Y S ex:Female Date:10/28/2024 Address:[facility] [address], [id number] Subjective: * Chief Complaints: * 1 . Migraine. * HPI: C ardiology: 59 year old female presents with c/o Headaches P t is here today for status migrane x 5 days. She is due for her second Botox injection on Friday and third Vyepti injection due to 12/02/2024. * ROS: D ERMATOLOGY: no R jennifer. n o H sepideh. G ASTROENTEROLOGY: no N ausea. n o V omiting. n o D iarrhea.? U ROLOGY: no D ifficulty urinating. n o B lood in urine. * Medical History: M igraine headache, Hypertension, Smoking, Meningioma - 11/2013, Intra-operative stroke with expressive aphasia - 12/08/13, Type 2 DM, Tobacco addiction, Tardive dyskinesia. * Surgical History: R T breast lumpectomy 1998, DREZ procedure 1999, tubal ligation 2000, teeth extracted 03/20/2009, Meningoma removed from left side of brain 12/08/2013, Repeat DREZ procedure - Dr. Barahona 03/25/2017, ORIF R ankle fx/ [facility] 06/2023, Explant of screws from right ankle/ [facility] 07/2023. * Family History: F ather: , cancer, hypertension. M other: , dementia, stroke, diabetes, HTN. 1 brother(s) - healthy. . * Social History: C URRENT TOBACCO USE S moking Status: P atient does smoke, p acks per day: 1 .5, S salud age of: 1 6. C affeine: yes, frequency:. Exercise: no. Home smoke detector use: yes. Marital Status: . Past smoking status: yes, PPD:1 , years: 20 ,determination:. Recreational drug use: no. Alcohol: no. * Medications: T aking Vyepti 100 MG/ML Solution as directed Intravenous , Taking Farxiga 10 MG Tablet 1 tab(s) Orally once a day , Taking Atorvastatin Calcium 80 MG Tablet 1 tab(s) orally once a day in the evening , Taking GLUCOMETER DIRECTED TEST QD , Taking ONE TOUCH GLUCOMETER DIRECTED USE DIRECTED , Taking OneTouch Ultra 2 w/Device Kit as directed , Taking ONE TOUCH TEST STRIPS DIRECTED TESTS FOUR TIMES A DAY , Taking Glucagon Emergency 1 MG Kit as directed Injection , Taking Keppra 500 MG Tablet 1 tablet Orally Two times a day , Taking Aspirin 325 MG Tablet Delayed Release 1 tab(s) orally once a day , Taking Vistaril 25 MG Capsule 1 cap(s) orally three times a day as needed , Taking traZODone HCl 150 MG Tablet 1 tab(s) orally once a day (at bedtime) , Taking Acetaminophen 325 MG Tablet 2 tab(s) Orally q6h prn , Taking Tums 500 MG Tablet Chewable 2 tablet Orally four times a day as needed , Taking Cetirizine HCl 10 MG Tablet 1 tablet Orally once daily , Taking tiZANidine HCl 4 MG Tablet 1 tablet Orally Three times a day , Taking Omeprazole 40 MG Capsule Delayed Release 1 cap(s) Orally once daily , Taking Melatonin 5 MG Tablet 1 tab Orally At Bed Time , Taking Lidocaine 4 % Patch 1 patch Externally Once a day prn , Taking NIFEdipine ER 30 MG Tablet Extended Release 24 Hour 1 tab(s) Orally Once a day , Taking Lisinopril 40 MG Tablet 1 tablet Orally Once a day , Taking OneTouch FinePoint Lancets - Four times a day , Taking Qulipta 60 MG Tablet 1 tab(s) orally At Bed Time , Taking Desvenlafaxine ER 100 MG Tablet Extended Release 24 Hour 1 tab(s) orally At Bed Time , Taking BD Pen Needle Micro U/F 32G X 6 MM Miscellaneous USE DIRECTED TWICE DAILY. , Taking Glucerna Shake - Liquid 240 ml Orally once daily , Taking Promethazine HCl 25 MG Tablet 1 tab(s) Orally two times a day as needed , Taking Ibuprofen 800 MG Tablet 1 tablet with food or milk as needed Orally every 8 hrs prn , Taking Lantus SoloStar 100 UNIT/ML Solution Pen-injector 20 units Subcutaneous once daily , Taking Diphenoxylate-Atropine 2.5-0.025 MG Tablet 1 tab(s) Orally q6h prn diarrhea , Taking OneTouch SureSoft Lancing Dev - four times a day, PRN , Taking Ingrezza 80 MG Capsule 1 cap(s) orally At Bed Time , Taking OneTouch Ultra - Strip USE TO TEST 4 TIMES DAILY DIRECTED. , Taking Gabapentin 800 MG Tablet 1 tab(s) orally 3 times a day , Taking Alendronate Sodium 70 mg Tablet Take 1 tablet once weekly 30 minutes before the first food, beverage or medicine of the day with plain water , Taking Fluticasone Propionate 50 MCG/ACT Suspension 2 spray in each nostril Nasally once a day as needed , Taking FreeStyle John 14 Day Wagoner - Device as directed , Taking FreeStyle John 2 Sensor - Miscellaneous USE DIRECTED (CHANGE EVERY 14 D AYS. , Medication List reviewed and reconciled with the patient * Allergies: P enicillin, Erythromycin, DHEA, Methadone, Ketorolac, Relpax: HBP - Onset Date 05/31/2019, AMERGE: HBP and palpitations, Imitrex: HBP, Sulfa Antibiotics: itching, Cephalexin, Cipro, SEROquel, Reglan: messed with her head, Viibryd: diarrhea - Side Effects, Aimovig: leg pain - Side Effects. Objective: * Vitals: W t: 136.6, Temp: 98.5, BP: 118/74, HR: 67, Nurse: mamta, Ht: 63.50, BMI:23.82. * Examination: G eneral Examination: General Appearance: S he is photophobic. N marco a: N o meningismus. H eart: R SR. L ungs: c lear to auscultation.?Neurologic Exam: n o focal deficits. Facial movements and lip smacking worse today. E xtremities: n o leg edema. . Assessment: * Assessment: 1. I ntractable periodic headache syndrome - G43.C1 (Primary) 2 . T ype 2 diabetes mellitus with diabetic polyneuropathy - E11.42 3 . T ardive dyskinesia - G24.01 4 . B [place] 23.0-23.9, adult - Z68.23 Plan: * Treatment: * Procedure Codes: G 2211 Complex e/m visit add on, G8752 MOST RECENT SYSTOLIC BP < 140MM HG, G8754 MOST RECENT DIASTOLIC BP < 90MM HG * Follow Up: 3 Months * Images: Billing Information: * Visit Code: 13945 Office Visit, Est Pt., Level 3. * Procedure Codes: G2211 Complex e/m visit add on. G8752 MOST RECENT SYSTOLIC BP < 140MM HG. G8754 MOST RECENT DIASTOLIC BP < 90MM HG. * Electronic signature of Samuel Gutierres MD on 02/17/2025 at 02:07 PM EDT Sign off status: Pending * Provider: Samuel Gutierres M.D. Date: 0 10/28/2024 Generated for Smithi ng/Fatommyg/eTransmitting on: 0 02/17/2025 02:07 PM EDT History and Physical Notes * HPI (History of Present Illness) Category Sub-Category Detail Notes Category Not es Cardiology Headaches Pt is here today for status migrane x 5 days. She is due for her second Botox injection on Friday and third Vyepti injection due to 12/02/2024 Examination Category Sub-Category Detail Notes Category Not es General Examination Heart: RSR Lungs: clear to auscultatio n Extremities: no leg edema. General Appearance: She is photophobic Skin: Neurologic Exam: no focal deficits. F acial movements and lip smacking worse today Neck: No meningismus
--- OUTSIDE RECORDS SUMMARY | 2025-02-17 14:05 | XMS_ITS | Clinical Summary ---
Author Organization [facility] Address [address] [place] [address] Phone Care Team Providers Care Water Technician Name Role Phone Gilmar COFFEY, Luigi Huitron [phone] [ ] Conditions or Problems Problem Name [...] right tibia, subsequent encounter Cellulitis, foot, right 838600466 (SNOMED CT) 09/08 Active 09/08 Jaylene Mays Cellulitis of lower limb Infection, local skin/subcuta neous tissue 481657481 (SNOMED CT) 09/08 Active 09/08 Jaylene Davon Localized infection of skin AND/OR subcutaneous tissue CKD III(document a or b) 561653570 (SNOMED CT) 09/08 Active 09/08 Jaylene Davon Chronic kidney disease stage 3A Acute renal failure with tubular necrosis [id number] 101 (SNOMED CT) 09/08 Active 09/08 Jaylene Davon Acute renal failure due to tubular necrosis Elevation of levels of liver transaminase levels 611876952 (SNOMED CT) 09/08 Active 09/08 Jaylene Davon Elevated level of transaminase and lactic acid dehydrogenase Alkaline phosphatase, elevated 608181642 (SNOMED CT) 09/08 Active 09/08 Jaylene Mays Alkaline phosphatase above reference range Anemia due to acute blood loss 970101889 ([facility]) 09/08 Active 09/08 Jaylene Mays Acute posthemorrhagic anemia Anemia in CKD D63.1 (ICD-10-CM) 09/08 Active 09/08 Jaylene Mays Anemia in chronic kidney disease DM Type II E11.9 (ICD-10-CM) 09/08 Active 09/08 Jaylene Mays Type 2 diabetes mellitus without complications Benign Essential Hypertension 64798462 ([facility]) 09/08 Active 09/08 Jaylene Mays Benign hypertension Medications Medication Instructions Start Date Stop Date Generic Name [facility] Provider aztreonam vaibhav judd Aztreonam 2G IV [id number] [place] 09/15 aztreonam recon binta Wolfe RN Cubicin RF (daptomycin) recon binta Cubicin 650mg IV [id number] [place] 09/15 daptomycin Kamila Wolfe RN NIFEDIPINE ER 30 MG [id number] Take 1 tablet by mouth once a day nifedipine 73922570237 Janay Manrique LISINOPRIL 40 MG TABS Take 1 tablet by mouth once a day lisinopril 13433776165 Janay Manrique QULIPTA 60 MG TABS Take 1 tablet by mouth atogepant 19798132331 Janay Manrique ACETAMINOPHEN 500 MG TABS Take 1 tablet by mouth every six hours as needed acetaminophen 67672059075 Janay Manrique insulin detemir (LEVEMIR) 100 UNIT/ML injection Inject 5 unit subcutaneously every morning as directed LEVEMIR Janay Manrique ACETAMINOPHEN 325 MG TABS Take 2 tablet by mouth every six hours as needed acetaminophen 49397462037 Janay Manrique HYDROXYZINE PAMOATE 25 MG CAPS Take 1 capsule by mouth three times a day as needed hydroxyzine pamoate 43789364676 Janay Manrique LEVETIRACETAM 500 MG TABS Take 1 tablet by mouth every twelve hours levetiracetam 01333115315 Janay Manrique ASPIRIN 325 MG TABS Take 1 tablet by mouth once a day aspirin 90696920619 Janay Manrique PEG 3350 17 GM PACK Take 17 gram by mouth once a day polyethylene glycol 3350 17806247211 Janay Manrique CYCLOBENZAPRINE HCL 5 MG TABS Take 1 tablet by mouth three times a day as needed cyclobenzaprine 55922053579 Janay Manrique ENOXAPARIN SODIUM 40 MG/0.4ML SOSY Inject 0.4 ml subcutaneously once a day as directed 11/02 enoxaparin 35171846349 Janay Manrique ATORVASTATIN CALCIUM 80 MG TABS Take 1 tablet by mouth every night atorvastatin 25776705949 Janay Manrique PROCHLORPERAZINE EDISYLATE 10 MG/2ML SOLN 2 ml every eight hours as needed prochlorperazine edisylate 71138087726 Janay Manrique INSULIN LISPRO 100 UNIT/ML SOLN Inject 2-7 unit subcutaneously four times a day as directed insulin lispro 19487411516 Jnaay Manrique SENNOSIDES-DOCUSAT E SODIUM 8.6-50 MG TABS Take 2 tablet by mouth twice a day as needed sennosides-docusa te sodium 31665094884 Janay Manrique PROMETHAZINE HCL 25 MG TABS Take 1 tablet by mouth every six hours as needed promethazine 34246693244 Janay Manrique Valbenazine Tosylate 80 MG capsule Take 1 capsule by mouth once a day Valbenazine Tosylate 80 MG capsule Janay Manrique TRAZODONE HCL 150 MG TABS Take 3 tablet by mouth every night trazodone 16791165709 Janay Manrique DOCUSATE SODIUM 100 MG CAPS Take 1 capsule by mouth twice a day 09/18 docusate sodium 89186607985 Janay Manrique OMEPRAZOLE 40 MG CPDR Take 1 capsule by mouth once a day omeprazole 59360479629 Janay Burton CETIRIZINE HCL 10 MG TABS Take 1 tablet by mouth once a day cetirizine 85099053441 Janay Manrique MELATONIN 5 MG TABS Take 1 tablet by mouth every night as needed melatonin 23124517886 Janay Manrique LIDOCAINE PAIN RELIEF MAX ST 4 % PTCH Place 1 patch once a day as directed lidocaine 73918709213 Janay Manrique DESVENLAFAXINE SUCCINATE ER 100 MG [id number] Take 2 tablet by mouth once a day desvenlafaxine succinate 52917301177 Janay Manrique DOXYCYCLINE HYCLATE 100 MG CAPS Take 1 capsule by mouth twice a day 09/28 doxycycline hyclate 14769633717 Janay Burton ALENDRONATE SODIUM 70 MG TABS Take 1 tablet by mouth once a week alendronate 23392226357 Janay Manrique Cubicin RF (daptomycin) recon soln Cubicin 650mg [id number]/15 daptomycin Kamila Wolfe RN aztreonam recon solmeseret Aztreonam 2G IV [id number][facility] 09/15 aztreonam recon soln Kamila Wolfe RN Valbenazine Tosylate 80 MG capsule Take 1 capsule by mouth Daily. 09/15 Valbenazine Tosylate 80 MG capsule QIE qieuser TRAZODONE HCL 150 MG TABS Take 3 tablets by mouth Every Night. 09/15 trazodone 66879740837 QIE qieuser SENNOSIDES-DOCUSAT E SODIUM 8.6-50 MG TABS Take 2 tablets by mouth 2 (Two) Times a Day As Needed for Constipation. sennosides-docusa te sodium 10715840846 QIE qieuser PROMETHAZINE HCL 25 MG TABS Take 1 tablet by mouth Every 6 (Six) Hours As Needed for Nausea or Vomiting. 09/15 promethazine 29865803143 QIE qieuser PROCHLORPERAZINE EDISYLATE 10 MG/2ML SOLN Infuse 2 mL into a venous catheter Every 8 (Eight) Hours As Needed (headache/migrai ne (give with iv benadryl)). 09/15 prochlorperazine edisylate 25873057313 QIE qieuser PEG 3350 17 GM PACK Take 17 g by mouth Daily. 09/15 polyethylene glycol 3350 55603277829 QIE qieuser ONETOUCH ULTRA STRP null blood sugar diagnostic 85808372593 QIE qieuser OMEPRAZOLE 40 MG CPDR Take 1 capsule by mouth Daily. 09/15 omeprazole 00574544078 QIE qieuser NIFEDIPINE ER 30 MG [id number] Take 1 tablet by mouth Daily. 09/15 nifedipine 86317856522 QIE qieuser NICOTINE STEP 1 21 MG/24HR PT24 null nicotine 72156200960 QIE qieuser MELATONIN 5 MG TABS Take 1 tablet by mouth At Night As Needed (insomnia). 09/15 melatonin 61615553138 QIE qieuser LISINOPRIL 40 MG TABS Take 1 tablet by mouth Daily. 09/15 lisinopril 96955420460 QIE qieuser LIDOCAINE PAIN RELIEF MAX ST 4 % PTC Place 1 patch on the skin as directed by provider Daily. Remove & Discard patch within 12 hours or as directed by 09/15 lidocaine 19364785400 QIE qieuser LEVETIRACETAM 500 MG TABS Take 1 tablet by mouth Every 12 (Twelve) Hours. 09/15 levetiracetam 45716184994 QIE qieuser ONETOUCH DELICA PLUS [id number] null lancets 14499259288 QIE qieuser INSULIN LISPRO 100 UNIT/ML SOLN Inject 2-7 Units under the skin into the appropriate area as directed 4 (Four) Times a Day Before Meals & at Bedtime. 09/15 insulin lispro 77665710918 QIE qieuser insulin detemir (LEVEMIR) 100 UNIT/ML injection Inject 5 Units under the skin into the appropriate area as directed Every Morning. 09/15 LEVEMIR QIE qieuser HYDROXYZINE PAMOATE 25 MG CAPS Take 1 capsule by mouth 3 (Three) Times a Day As Needed for Itching. 01/18 hydroxyzine pamoate 60878419986 QIE qieuser GABAPENTIN 400 MG CAPS Take 2 capsules by mouth Every 8 (Eight) Hours for 4 days. 09/08 gabapentin 98225947613 QIE qieuser ENOXAPARIN SODIUM 40 MG/0.4ML SOSY Inject 0.4 mL under the skin into the appropriate area as directed Daily for 60 days. 11/02 enoxaparin 90365421641 QIE qieuser DOXYCYCLINE HYCLATE 100 MG CAPS Take 1 capsule by mouth 2 (Two) Times a Day for 14 days. 09/28 doxycycline hyclate 25267869777 QIE qieuser DOCUSATE SODIUM 100 MG CAPS Take 1 capsule by mouth 2 (Two) Times a Day for 15 days. 09/18 docusate sodium 93185681364 QIE qieuser DESVENLAFAXINE SUCCINATE ER 100 MG RN78M-HAL Take 2 tablets by mouth Daily. 09/15 desvenlafaxine succinate 39929102725 QIE qieuser CYCLOBENZAPRINE HCL 5 MG TABS Take 1 tablet by mouth 3 (Three) Times a Day As Needed for Muscle Spasms. 01/18 cyclobenzaprine 61834594633 QIE qieuser CETIRIZINE HCL 10 MG TABS Take 1 tablet by mouth Daily. 09/15 cetirizine 35090966369 QIE qieuser ANTACID CALCIUM 500 MG CHEW null calcium carbonate 98419945578 QIE qieuser BD PEN NEEDLE MICRO ULTRAFINE 32G X 6 MM null pen needle, diabetic 94057280045 QIE qieuser ATORVASTATIN CALCIUM 80 MG TABS Take 1 tablet by mouth Every Night. 09/15 atorvastatin 18566666411 QIE qieuser QULIPTA 60 MG TABS Take 1 tablet by mouth. 09/15 atogepant 81549595046 QIE qieuser ASPIRIN 325 MG TABS Take 1 tablet by mouth Daily. 09/15 aspirin 58053422432 QIE qieuser ALENDRONATE SODIUM 70 MG TABS Take 1 tablet by mouth Every 7 (Seven) Days. 09/15 alendronate 33228116117 QIE qieuser ACETAMINOPHEN 500 MG TABS Take 1 tablet by mouth Every 6 (Six) Hours As Needed for Mild Pain. 09/15 acetaminophen 58834973512 QIE qieuser ACETAMINOPHEN 325 MG TABS Take 2 tablets by mouth Every 6 (Six) Hours As Needed for Mild Pain. 09/15 acetaminophen 60894074209 QIE qieuser Medications Administered No information available. [...] Procedures Code Procedure Name Date Entry Date [id number] CBC with Differential 2023 CPT-54573 C- reactive protein CPT-sl STAT Labs [id number] CBC with Differential 2023 CPT-45014 C- reactive protein [id number], [id number] CPK CPT-46449 Sedimentation Rate (ESR) 202 10/20/22 CPT-51727 CMP Vital Signs Date Name Value Unit [...]
--- OUTSIDE RECORDS SUMMARY | 2025-02-17 14:06 | XMS_ITS | Encounter Summary ---
Author Organization Healthcare Address [address] [place] [address] Care Team Providers Care Synchronizer Name Role Phone Vasu Gutierres MD Primary Care Provider [phone]- [phone] Reason for Visit * Reason Onset Date Comments HCN - Patient Message 02/10/2025 Reschedule Encounter Details Date Type Department Care Team (Late st Contact Info) Description 02/10/2025 Telephone [facility] [address] [place] [address] Sweetie Hewitt, PA [address] [place] [address] HCN - Patient Message (Reschedule ) Social History Tobacco Use Types Packs/Day Years [...] encounter Miscellaneous Notes * Telephone Encounter - Crissy Plunkett - 02/16/2025 2:02 PM EDT Patient Phone Message Reason for Call: Patient is calling back to TaDaweb appt. Best contact number and optimal time of day to reach caller: [phone] anytime Note: Please do not reply to this message. Follow-up communication and further actions as a result of this message need to be communicated with the patient directly, if the patient is not active onMyChart. If the patient is active on MyChart, they will receive notification of the communication/outcome via MyChart. * Telephone Encounter - Shirlene Masters - 02/10/2025 10:47 AM EDT Patient Phone Message Reason for Call: Patient calling to [email or web address] appt Best contact number and optimal time of day to reach caller: [phone] or [phone] Note: Please do not reply to this message. Follow-up communication and further actions as a result of this message need to be communicated with the patient directly, if the patient is not active onMyChart. If the patient is active on MyChart, they will receive notification of the communication/outcome via bright boxhart. documented in this encounter Plan of Treatment Upcoming Encounters Date Type Department Care Team (Late st Contact Info) Description 02/24/2025 10:00 AM EDT Appointment [facility] [address] [address] 04/04/2025 10:40 AM EDT Office Visit [place] [facility] [address] [place] [address] Sweetie Hewitt, MECHE [address] [place] [address] 05/19/2025 10:00 AM EDT Appointment [facility] [address] [place] [address] documented as of this encounter Visit Diagnoses Not on filedocumented in this encounter Additional Health Concerns Assessment Noted Time A fall risk assessment has been complete d for the patient 12/02/2024 10:04 AM EDT A Body Mass Index follow-up plan has been documented for the patient 12/02/2024 10:09 AM EDT documented as of this encounter Care Teams Synchronizer Relationship Specialty Start Date End Date Vasu Gutierres MD [address] [place] [address] PCP - General 05/19/24 documented as of this encounter
--- OUTSIDE RECORDS SUMMARY | 2025-02-17 14:07 | XMS_ITS | Encounter Summary ---
Author Organization Healthcare Address [address] [place] [address] Care Team Providers Care Pan Puller Name Role Phone Pcp, No Primary Care Provider Vasu Be MD Primary Care Provider [phone]- [phone] Reason for Referral * Consultation (Routine) - Closed Specialty Diagnoses / Procedures Referred By Contac t Referred To Contact Neurology Diagnoses Chronic intractable headache, unspecified headache type Tardive dyskinesia History of drug abuse History of stroke Major depression in remission (CMS/FORMERLY [facility]) Mira Dolan MD [address] [place] [address] Phone: tel: fax: Luis Armando Weeks MD [address] [facility] [address] [place] [address] Phone: tel: fax: Referral ID Status Reason Start Date Expiration Date V isits Requested Visits Authorized [id number] Closed Specialty Services Required 03/05/2022 09/04/2023 1 1 Encounter Details Date Type Department Care Team (Late st Contact Info) Description 03/05/2022 Community [facility] [address] [place] [address] Mira Dolan MD [address] [facility] [address] [place] [address] Chronic intractable headache, unspecified headache type (Primary Dx); Tardive syndrome; Tardive dyskinesia; History of drug abuse (CMS/HCC); History of stroke; Major depression in remission (CMS/HCC) Social History Tobacco Use Types Packs/Day Years Used Date Smoking Tobacco: Never Assessed Comments Unknown Sex and Gender Information Value Date Recorded Sex Assigned at Not on file Legal Sex Female 8:58 PM EDT Gender Identity Not on file Sexual Orientation Not on file documented as of this encounter Plan of Treatment Upcoming Encounters Date Type Department Care Team ([facility] st Contact Info) Description 02/24/2025 10:00 AM EDT Appointment [facility] [address] [facility] [address] [place] [address] 04/04/2025 10:40 AM EDT Office Visit [place] [facility] [address] [place] [address] Sweetie Hewitt, PA [address] [place] [address] 05/19/2025 10:00 AM EDT Appointment [facility] [address] [facility] [address] [place] [address] Scheduled Referrals Name Type Priority Associated Diagnoses Orde r Schedule Ambulatory referral to Neurology Outpatient Referral Routine Chronic intractable headache, unspecified headache type Tardive dyskinesia History of drug abuse (CMS/HCC) History of stroke Major depression in remission (CMS/HCC) Ordered: 03/05/2022 documented as of this encounter [...] remission documented in this encounter Care Teams Pan Puller Relationship Specialty Start Date End Date Pcp, No [address] [place] [address] PCP - General Family Medicine 06/04/23 05/18/24 Vasu Gutierres MD [address] [place], [place] [address] PCP - General 05/19/24 documented as of this encounter
--- OUTSIDE RECORDS SUMMARY | 2025-02-17 14:07 | XMS_ITS | Clinical Summary ---
Author Organization [facility] Address [address] [place] [address] Care Team Providers Care Sharebroker Name Role Phone Vasu Gutierres MD Primary Care Provider +1- [phone] Allergies Active Allergy Reactions Criticality Noted Date [...] (one) time each day. Active Continuous Glucose Cook Cold Meat (Fairwinds CCCStyle John 14 Day [place]) device 3 Active Continuous Glucose Sensor (FreeStyle John 2 Sensor) [facility] USE DIRECTED (CHANGE EVERY 14 D AYS. [...] mouth 3 (three) times a day. Active RedeemiaTouch Ultra Test test strip USE TO TEST 4 TIMES DAILY DIRECTED. Active hydrOXYzine pamoate (Vistaril) 25 MG capsule 4 Active Levemir FlexPen 100 UNIT/ML injection pen 4 Active BD Pen Needle Micro U/F 32G X 6 MM misc 2 (two) times a day. as directed 4 Active Lancets (OneTouch Delica Plus [id number]) misc 4 (four) times a day. 4 [...] Encounters Date Type Department Care Team Description 02/10/[address] [address] Sweetie Hewitt PA HCN - Patient Message (Reschedule ) 12/15/[address], [address] [place] [address] Sweetie Hewitt PA 12/14/[address], [address] [place] [address] Sweetie Hewitt PA 12/02/2024 9:58 AM EDT - 12/02/2024 11:59 PM EDT Hospital Encounter [facility] [address] [place] [address] Migraine without aura and without status migrainosus, not intractable (Primary Dx) Discharge Disposition: Home or Self Care 12/02/2024 Travel 12/01/2024 Telephone [facility] [address] [place] [address] Stella Gilmore APRN from Last 3 Months Immunizations Immunization Administration Dates Next Due Influenza, Unspecified 04/24/2017 Influenza, high-dose, quadrivalent 04/24/2017 Influenza, injectable, MDCK, preservative free, quadrivalent 05/26/2021 Influenza, injectable, quadrivalent 04/02/2022 Influenza, injectable, quadr ivalent, preservative free 10/26/2019 Influenza, seasonal, injectable 05/10/2010 Influenza, seasonal, injecta ble, preservative free 04/18/2014 PPD Skin Test (TB Skin Test) 06/20/2021,06/13/20,05/15/2017 Pneumococcal Polysaccharide PPV23 10/26/2019, Tdap 07/10/2017 Social [...] [facility] [address] [place] [address] 04/04/2025 10:40 AM EDT Office Visit [place] [facility] [address] [place] [address] Sweetie Hewitt, PA [address] [place] [address] 05/19/2025 10:00 AM EDT Appointment [facility] [address] [place] [address] Health Maintenance Due Date Last Done Comments [facility]-Depression Screening 1965 [facility]-HIV Screening 1965 [facility]-Hepatitis C Screening 1965 [facility]-Medicare Annual Wellness (AWV) 1965 [facility]-Infant/Child/Adol SDOH Screenings [...] of 2 - PCV) 10/25/2020 10/26/2019, 04/18/2014 [id number] Vaccine ( season) 2024 05/26/2021, 10/21/2020 [facility]-Influenza Vaccine (#1) [...] age to complete this topic Insurance MEDICAID-[place] [facility] MED[employer] Care Teams Sharebroker Relationship Specialty Start Date End Date Vasu Gutierres MD [address] [place] [address] PCP - General 05/19/24
--- OUTSIDE RECORDS SUMMARY | 2025-02-17 14:07 | XMS_ITS | Encounter Summary ---
Author Organization Healthcare Address [address] [place] [address] Care Team Providers Care Agricultural Services Director Name Role Phone Vasu Gutierres MD Primary Care Provider +1- [phone] Encounter Details Date Type Department Care Team (Late st Contact Info) Description 12/14/2024 Telephone [place] [facility] [address] [place] [address] Sweetie Hewitt, PA [address] [place] [address] Social History Tobacco Use Types [...] optimal time of day to reach caller: [phone] Note: Please do not reply to this [...] [facility] [address] [place] [address] 04/04/2025 10:40 AM EDT Office Visit [place] [facility] [address] [place] [address] Sweetie Hewitt, PA [address] [place] [address] 05/19/2025 10:00 AM EDT Appointment [facility] [address] [place] [address] documented as of this encounter Visit Diagnoses Not on filedocumented in this encounter Additional Health Concerns Assessment Noted Time A fall risk assessment has been complete d for the patient 12/02/2024 10:04 AM EDT A Body Mass Index follow-up plan has been documented for the patient 12/02/2024 10:09 AM EDT documented as of this encounter Care Teams Agricultural Services Director Relationship Specialty Start Date End Date Vasu Gutierres MD [address] [place] [address] PCP - General 05/19/24 documented as of this encounter
--- OUTSIDE RECORDS SUMMARY | 2025-02-17 14:07 | XMS_ITS ---
Author Organization [facility] Care Team Providers Care Electromedical Equipment Repairer Name Role Phone Vasu Gutierres Unavailable Unavaila ble Allergies and adverse reactions Code CodeSystem Substance Reaction Severity StartDate Concern Status viibyrd Unknown 05/15/2017 active Toradol Unknown 05/15/[address] Sulfa Antibiotics Unknown 05/15/2017 active Seroquel Unknown 05/15/2017 active Saccharin Unknown 05/15/2017 active Relpax Unknown 05/15/2017 active Reglan Unknown 05/15/2017 active 7984 RXNORM Penicillin Skin reaction - finding (code- 309742158, SNOMED CT) Mild 05/15/2017 active Piatt Unknown 05/15/2017 active 6813 RXNORM Methadone Unknown 05/15/2017 active Keflex Unknown 05/15/2017 active Imitrex Unknown 05/15/2017 active 4053 RXNORM Erythromycin Unknown 05/15/2017 active 3418 RXNORM Dihydroergotamine Unknown 05/15/2017 act claribel Cipro Unknown 05/15/2017 active Aspartame Unknown 05/15/2017 active Amerge Unknown 05/15/2017 active Care Team Name Role Address Phone Organization Dates Vasu Gutierres PCP [address], [place], [address], [place] (Office): [facility] 07/05/2021 - 07/05/2021 Goals Section Goals Description [...] completed tuberculin skin test; unspecified formulation lotNumber: [id number] expiry: 10/12/2022 Mfg: Sandfi-pasteur Given 0.1 ml Left Forearm intradermally 98 CVX created date: 06/13/2021 consent date: 06/13/2021 administer ed date: 06/13/2021 TB 1 Step Mantoux (PPD) completed tuberculin skin test; unspecified formulation lotNumber: [id number] expiry: 06/05/2018 Mfg: Tubersol Given 0.1 ml Left Forearm intradermally 98 CVX created date: 05/15/2017 consent date: 05/15/2017 administer ed date: 05/15/2017 TB 2 Step Mantoux Skin Test completed tuberculin skin test; unspecified formulation lotNumber: [id number] expiry: 10/12/2022 Mfg: sanofi pasteur limited Given 0.1 ml Left Forearm intradermally Step 2 of Multi-step with next step required 98 CVX created date: 06/29/2021 consent date: 07/04/2021 administer ed date: 06/20/2021 neg TB 2 Step Mantoux Skin Test completed tuberculin skin test; unspecified formulation lotNumber: [id number] expiry: 10/12/2022 Mfg: sanfoi past unli Given [...] Status 1 ALTERED MENTAL STATUS, UNSPECIFIED 06/13/[address] active 2 ANXIETY DISORDER, UNSPECIFIED 06/13/[address] active 3 ATHEROSCLEROTIC HEART DISEASE OF [place] CORONARY ARTERY WITHOUT ANGINA PECTORIS 06/13/[address] active 4 CHRONIC OBSTRUCTIVE PULMONARY DISEASE, UNSPECIFIED 06/13/[address] active 5 DEHYDRATION 06/13/[address] active 6 DEPRESSION, UNSPECIFIED 06/13/[address] active 7 DYSPHAGIA, OROPHARYNGEAL PHASE 06/13/[address] active 8 ESSENTIAL (PRIMARY) HYPERTENSION 06/13/[address] active 9 GASTRO-ESOPHAGEAL REFLUX DISEASE WITHOUT ESOPHAGITIS 06/13/[address] active 10 HYPERLIPIDEMIA, UNSPECIFIED 06/13/[address] active 11 HYPOTHYROIDISM, UNSPECIFIED 06/13/[address] active 12 MAJOR DEPRESSIVE DISORDER, RECURRENT, UNSPECIFIED 06/13/[address] active 13 MIGRAINE, UNSPECIFIED, NOT INTRACTABLE, WITHOUT STATUS MIGRAINOSUS 06/13/[address] active 14 MUSCLE WEAKNESS (GENERALIZED) 06/13/[address] active 15 OTHER SPECIFIED ARTHRITIS, UNSPECIFIED SITE 06/13/[address] active 16 PATIENT'S OTHER NONCOMPLIANCE WITH MEDICATION REGIMEN 06/13/[address] active 17 PERSONAL HISTORY OF BENIGN NEOPLASM OF THE BRAIN 06/13/[address] active 18 PERSONAL HISTORY OF TRANSIENT ISCHEMIC ATTACK (TIA), AND CEREBRAL INFARCTION WITHOUT RESIDUAL DEFICITS 06/13/[address] active 19 TYPE 2 DIABETES MELLITUS WITH HYPERGLYCEMIA 06/13/[address] active 20 UNSTEADINESS ON FEET 06/13/[address] active 21 CHRONIC MIGRAINE WITHOUT AURA 05/15/20 17 06/13/[address] completed 22 HYPERLIPIDEMIA, UNSPECIFIED 05/15/20 17 06/13/[address] completed 23 ALF (CURRENT) USE OF INSULIN 05/15/20 17 06/13/[address] completed 24 NICOTINE DEPENDENCE, UNSPECIFIED, UNCOMPLICATED 05/15/[address] active 25 OTHER SPECIFIED ANXIETY DISORDERS 05/15/20 17 06/13/[address] completed 26 OTHER SYMPTOMS AND SIGNS INVOLVING THE MUSCULOSKELETAL SYSTEM 05/15/20 17 06/13/[address] completed 27 TUBAL LIGATION STATUS 05/15/20 17 06/13/[address] completed 28 TYPE 2 DIABETES MELLITUS WITH DIABETIC POLYNEUROPATHY 05/15/20 17 06/13/[address] completed 29 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, INITIAL ENCOUNTER 05/15/20 17 06/13/[address] completed Reason for Referral No Reasons for Referral Entered Social History Social History Observation Description Start Date End Date Code Code System Current Smoking Status Tobacco smoking consumption unknown [id number] SNOMED CT Sex Assigned At Female 1965 33188-2 [facility] Gender Identity Vital Signs Code Code System Vitals Name Values and Units Timing Information 2339-0 [facility] Blood Sugar Value=90.0 Units=mg/dL 07/04/2021 8310-5 [facility] Body Temperature Value=98.5 Units= F 07/04/2021 77382-0 [facility] O2 % BldC Oximetry Value=97.0 Units= % 07/04/2021 81674-7 [facility] Weight Zpzzx=268.2 Units=Lbs 86735-3 [facility] Pain Level Value=2.0 07/03/2021 9279-1 [facility] Respiratory Rate Value=20.0 Units=/m in 07/01/2021 8462-4 [facility] Blood Pressure-Diastolic Value=80 Un its=mmHg 07/01/2021 8480-6 [facility] Blood Pressure-Systolic Lblmg=504 Un its=mmHg 07/01/2021 8867-4 [facility] Heart rate Value=88.0 Units=/min 06/2021 8302-2 [facility] Height Value=66.0 Units=Inches 06/13/2021
--- OUTSIDE RECORDS SUMMARY | 2025-02-17 14:07 | XMS_ITS | Encounter Summary ---
Author Organization Healthcare Address [address] [place] [address] Care Team Providers Care Raisin Washer Name Role Phone Vasu Gutierres MD Primary Care Provider [phone]- [phone] Encounter Details Date Type Department Care Team (Late st Contact Info) Description 12/15/2024 Telephone [place] [facility] [address] [place] [address] Sweetie Hewitt, PA [address] [place] [address] Social History Tobacco Use Types [...] at and needs to reschedule the January Botox to anotherday. Needs the or and needs to be a Friday. Please advise. Best contact number and optimal time of day to reach caller: [phone] Note: Please do not reply to this message. Follow-up communication and further actions as a result of this message need to be communicated with the patient directly, if the patient is not active onMyChart. If the patient is active on MyChart, they will receive notification of the communication/outcome via [employer]. documented in this encounter Plan of Treatment Upcoming Encounters Date Type Department Care Team (Late st Contact Info) Description 02/24/2025 10:00 AM EDT Appointment [facility] [address] [place] [address] 04/04/2025 10:40 AM EDT Office Visit [place] [facility] [address] [place] [address] Sweetie Hewitt D, PA [address] [place] [address] 05/19/2025 10:00 AM EDT Appointment [facility] [address] [place] [address] documented as of this encounter Visit Diagnoses Not on filedocumented in this encounter Additional Health Concerns Assessment Noted Time A fall risk assessment has been complete d for the patient 12/02/2024 10:04 AM EDT A Body Mass Index follow-up plan has been documented for the patient 12/02/2024 10:09 AM EDT documented as of this encounter Care Teams Raisin Washer Relationship Specialty Start Date End Date Vasu Gutierres MD [address] [place] [address] PCP - General 05/19/24 documented as of this encounter
[2025-02-17 14:35] VITALS: BP 114/75; PULSE 100; RESP 16; O2SAT 96
[2025-02-17] MEDS: BUTORPHANOL TARTRATE 2 MG/ML VIAL IM (14:35)
[2025-02-17] MEDS: BUTORPHANOL TARTRATE 1 MG/ML VIAL IM (14:35)
[2025-02-17] MEDS: PROMETHAZINE HCL 25MG/ML 1ML VIAL 50 MG IM (14:35)
[2025-02-17 15:05] VITALS: BP 122/79; PULSE 101; RESP 15; O2SAT 95
== END 2025-02-17 15:10 | disposition home or self-care (01) ==
LOC: INF 14:04
PROVIDERS: PCP Family Medicine; Visit Provider Family Medicine
DX: G43.909 Migraine, unspecified, not intractable, without status migrainosus (principal)
CPT/HCPCS: 96372; J0595; J2550

== ENCOUNTER 2025-03-03 14:36 | Outpatient (CLI) | payer MEDICARE, MEDICAID, SELFPAY ==
--- OUTSIDE RECORDS SUMMARY | 2024-08-27 04:00 | XMS_ITS | Continuity of Care Document ---
Author Organization [facility] Address [address] [place] [address] Phone Care Team Providers Care Polisher Hand Name Role Phone JAMAR ZAMORA MD [...] Diagnoses Date Provider Providers Copied on Encounter [facility], [facility], [address] [place] [address], [id number], tel:[phone] [place] OFFICE IDDM (chief complaint)PC O (chief complaint)PV D (chief complaint)op tic disc cupping (chief complaint) Type 1 diabetes mellitus without complication sOther secondary cataract, bilateralVit reous degeneration , left eyeGlaucomat ous optic atrophy, right eye 5 SERA MESSER. [address] [place] [address], [id number], [place]. tel:[phone] Specialist : Dang García MD, [address] [facility] [address], [place], [address]. tel:[phone] OFFICE/OUTPA TIENT VISIT, EST [facility], [facility], [address] [place] [address], [id number], tel:[phone] [place] OFFICE PVD f/u OS (chief complaint) Vitreous degeneration , left eyeOther secondary cataract, bilateral 4 ZINA CHANDLER. [address] [place] [address], [id number], [place]. tel:[phone] [facility], [address] [place] [address], [id number], [place] tel:[phone] [place] [address] OFFICE EOV (chief complaint) Vitreous degeneration , left eye - 4 ZINA CHANDLER. [address] [place] [address], [id number], [place]. tel:[phone] [place] [address] [facility], [address] [place] [address], [id number], [place] [phone] [place] [address] OFFICE Diabetic Eye Exam (chief complaint)PC O (chief complaint)di sc cupping (chief complaint) Type 1 diabetes mellitus without complication sOther secondary cataract, bilateralGla ucomatous optic atrophy, right eye 3 ZAMORA JAMAR. [address] [place] [address], [id number], [place]. tel:[phone] Specialist : Dang García MD, [address] [facility] [address], [place], [address]. tel:[phone] [facility], [facility], [address] [place] [address], [id number], [place] tel:[phone] [place] [address] OFFICE Full Exam (chief complaint)Di abetes (chief complaint) Type 1 diabetes mellitus without complication sGlaucomatou s optic atrophy, right eyeOther secondary cataract, bilateral May- 2 ZAMORA JAMAR. [address] [place] [address], [id number], [place]. tel:[phone] [place] [address] [facility], [address] [place] [address], [id number], [place] tel:[phone] [place] [address] OFFICE Diabetic exam (chief complaint)Co vid screening negative (chief complaint) Type 1 diabetes mellitus without complication sOther secondary cataract, bilateralGla ucomatous optic atrophy, right eye Oct- 1 ZAMORA JAMAR. [address] [place] [address], [id number], [place]. tel:[phone] [facility], [address] [place] [address], [address] [place] [address], tel:[phone] [place] [address] OFFICE Diabetes Examination (chief complaint)PC Fibrosis (chief complaint) Type 1 diabetes mellitus without complication sOther secondary cataract, bilateral 0 ZAMORA JAMAR. [address] [place] [address], [id number], [place]. [phone] [place] [address] [facility], [facility], [address] [place] [address], [address] [place] [address], tel:[phone] [place] [address] OFFICE IDDM (chief complaint)PC Fibrosis (chief complaint) Other secondary cataract, bilateralTyp e 1 diabetes mellitus without complication s 9 ZAMORA JAMAR. [address] [place] [address], [address] [place] [address], [place]. tel:[phone] [place] [address] [facility], [facility], [address] [place] [address], [address] [place] [address], tel:[phone] [place] [address] OFFICE NIDDM (chief complaint)PC Fibrosis (chief complaint) Type 2 diabetes mellitus without complication sOther secondary cataract, bilateral 9-201 8 ZAMORA JAMAR. [address] [place] [address], [id number], [place]. tel:[phone] [place] [address] [facility], [facility], [address] [place] [address], [address] [place] [address], tel:[phone] [place] [address] OFFICE Diabetes Examination (chief complaint)sh ooting pain (chief complaint)h/ o amblyopia (chief complaint) Diabetes Mellitus Type 2, Uncomplicate dAfter-catar act, obscuring visionLens replaced by other meansKeratoc onjunctiviti s sicca, not specified as sjogren's Mar-0 6-201 5 ZAMORA JAMAR. [address] [place] [address], [id number], [place]. tel:[phone] Family History Family Member Type Diagnosis Age [...] democrat ID Authoriza tion(s) ANTH/[employer] [facility] [id number] Social History Type Description Quantity Date [...] secondary cataract, bilateral Return in 4 weeks [facility] Eliseo Guo M.D. for Follow up. [...]
--- OUTSIDE RECORDS SUMMARY | 2025-03-03 14:42 | XMS_ITS | Clinical Summary ---
Author Organization [facility] Address [address] [place] [address] Phone Care Team Providers Care Freight Tallier Name Role Phone Gilmar COFFEY, Luigi Huitron [...] right tibia, subsequent encounter Cellulitis, foot, right 454383970 (SNOMED CT) 09/08 Active 09/08 Jaylene Mays Cellulitis of lower limb Infection, local skin/subcuta neous tissue 537851962 (SNOMED CT) 09/08 Active 09/08 Jaylene Davon Localized infection of skin AND/OR subcutaneous tissue CKD III(document a or b) 175269044 (SNOMED CT) 09/08 Active 09/08 Jaylene Davon Chronic kidney disease stage 3A Acute renal failure with tubular necrosis [id number] 101 (SNOMED CT) 09/08 Active 09/08 Jaylene Davon Acute renal failure due to tubular necrosis Elevation of levels of liver transaminase levels 768286022 (SNOMED CT) 09/08 Active 09/08 Jaylene Davon Elevated level of transaminase and lactic acid dehydrogenase Alkaline phosphatase, elevated 526979093 (SNOMED CT) 09/08 Active 09/08 Jaylene Mays Alkaline phosphatase above reference range Anemia due to acute blood loss 606160360 ([facility]) 09/08 Active 09/08 Jaylene Mays Acute posthemorrhagic anemia Anemia in CKD D63.1 (ICD-10-CM) 09/08 Active 09/08 Jaylene Mays Anemia in chronic kidney disease DM Type II E11.9 (ICD-10-CM) 09/08 Active 09/08 Jaylene Mays Type 2 diabetes mellitus without complications Benign Essential Hypertension 18419335 ([facility]) 09/08 Active 09/08 Jaylene Mays Benign hypertension Medications Medication Instructions Start Date Stop Date Generic Name [facility] IV [id number] [place] 09/15 aztreonam recon binta [facility] RN Cubicin RF (daptomycin) recon binta Cubicin 650mg IV [id number] [place] 09/15 daptomycin [facility] RN NIFEDIPINE ER 30 MG [id number] Take 1 tablet by mouth once a day nifedipine 73904380244 Janay Manrique LISINOPRIL 40 MG TABS Take 1 tablet by mouth once a day lisinopril 90038216345 Janay Manrique QULIPTA 60 MG TABS Take 1 tablet by mouth atogepant 64513134196 Janay Manrique ACETAMINOPHEN 500 MG TABS Take 1 tablet by mouth every six hours as needed acetaminophen 90683059746 Janay Manrique insulin detemir (LEVEMIR) 100 UNIT/ML injection Inject 5 unit subcutaneously every morning as directed LEVEMIR Janay Manrique ACETAMINOPHEN 325 MG TABS Take 2 tablet by mouth every six hours as needed acetaminophen 07887712811 Janay Manrique HYDROXYZINE PAMOATE 25 MG CAPS Take 1 capsule by mouth three times a day as needed hydroxyzine pamoate 96081057249 Janay Manrique LEVETIRACETAM 500 MG TABS Take 1 tablet by mouth every twelve hours levetiracetam 71367859615 Janay Manrique ASPIRIN 325 MG TABS Take 1 tablet by mouth once a day aspirin 85342802145 Janay Manrique PEG 3350 17 GM PACK Take 17 gram by mouth once a day polyethylene glycol 3350 82137910785 Janay Manrique CYCLOBENZAPRINE HCL 5 MG TABS Take 1 tablet by mouth three times a day as needed cyclobenzaprine 99849206431 Janay Manrique ENOXAPARIN SODIUM 40 MG/0.4ML SOSY Inject 0.4 ml subcutaneously once a day as directed 11/02 enoxaparin 68235341831 Janay Manrique ATORVASTATIN CALCIUM 80 MG TABS Take 1 tablet by mouth every night atorvastatin 63395299051 Janay Manrique PROCHLORPERAZINE EDISYLATE 10 MG/2ML SOLN 2 ml every eight hours as needed prochlorperazine edisylate 79945281130 Janay Manrique INSULIN LISPRO 100 UNIT/ML SOLN Inject 2-7 unit subcutaneously four times a day as directed insulin lispro 14318636108 Janay Manrique SENNOSIDES-DOCUSAT E SODIUM 8.6-50 MG TABS Take 2 tablet by mouth twice a day as needed sennosides-docusa te sodium 33191302440 Janay Manrique PROMETHAZINE HCL 25 MG TABS Take 1 tablet by mouth every six hours as needed promethazine 13140743966 Janay Manrique Valbenazine Tosylate 80 MG capsule Take 1 capsule by mouth once a day Valbenazine Tosylate 80 MG capsule Janay Manrique TRAZODONE HCL 150 MG TABS Take 3 tablet by mouth every night trazodone 83519966342 Janay Manrique DOCUSATE SODIUM 100 MG CAPS Take 1 capsule by mouth twice a day 09/18 docusate sodium 44014929691 Janay Manrique OMEPRAZOLE 40 MG CPDR Take 1 capsule by mouth once a day omeprazole 57789311222 Janay Burton CETIRIZINE HCL 10 MG TABS Take 1 tablet by mouth once a day cetirizine 89216378437 Janay Manrique MELATONIN 5 MG TABS Take 1 tablet by mouth every night as needed melatonin 26936469883 Halcomfort Burton LIDOCAINE PAIN RELIEF MAX ST 4 % PTCH Place 1 patch once a day as directed lidocaine 34224429589 Janay Manrique DESVENLAFAXINE SUCCINATE ER 100 MG [id number] Take 2 tablet by mouth once a day desvenlafaxine succinate 01809132718 Janay Manrique DOXYCYCLINE HYCLATE 100 MG CAPS Take 1 capsule by mouth twice a day 09/28 doxycycline hyclate 15805491259 Janay Burton ALENDRONATE SODIUM 70 MG TABS Take 1 tablet by mouth once a week alendronate 15881130998 Janay Manrique Cubicin RF (daptomycin) recon soln Cubicin 650mg IV [id number] 09/15 daptomycin [facility] RN aztreonam recon solmeseret Aztreonam 2G IV [id number]-HVAELT[facility] 09/15 aztreonam recon soln [facility] RN Valbenazine Tosylate 80 MG capsule Take 1 capsule by mouth Daily. 09/15 Valbenazine Tosylate 80 MG capsule QIE [facility] TRAZODONE HCL 150 MG TABS Take 3 tablets by mouth Every Night. 09/15 trazodone 52652370497 [facility] SENNOSIDES-DOCUSAT E SODIUM 8.6-50 MG TABS Take 2 tablets by mouth 2 (Two) Times a Day As Needed for Constipation. sennosides-docusa te sodium 14784042976 [facility] PROMETHAZINE HCL 25 MG TABS Take 1 tablet by mouth Every 6 (Six) Hours As Needed for Nausea or Vomiting. 09/15 promethazine 26338095660 [facility] PROCHLORPERAZINE EDISYLATE 10 MG/2ML SOLN Infuse 2 mL into a venous catheter Every 8 (Eight) Hours As Needed (headache/migrai ne (give with iv benadryl)). 09/15 prochlorperazine edisylate 33389262533 [facility] PEG 3350 17 GM PACK Take 17 g by mouth Daily. 09/15 polyethylene glycol 3350 54574278969 QIE [facility] ONETOUCH ULTRA STRP null blood sugar diagnostic 21376579348 [facility] OMEPRAZOLE 40 MG CPDR Take 1 capsule by mouth Daily. 09/15 omeprazole 39571321775 [facility] NIFEDIPINE ER 30 MG [id number] Take 1 tablet by mouth Daily. 09/15 nifedipine 28984635258 [facility] NICOTINE STEP 1 21 MG/24HR PT24 null nicotine 66249355553 [facility] MELATONIN 5 MG TABS Take 1 tablet by mouth At Night As Needed (insomnia). 09/15 melatonin 26840484017 [facility] LISINOPRIL 40 MG TABS Take 1 tablet by mouth Daily. 09/15 lisinopril 42264909482 [facility] LIDOCAINE PAIN RELIEF MAX ST 4 % PTCH Place 1 patch on the skin as directed by provider Daily. Remove & Discard patch within 12 hours or as directed by 09/15 lidocaine 01417423831 [facility] LEVETIRACETAM 500 MG TABS Take 1 tablet by mouth Every 12 (Twelve) Hours. 09/15 levetiracetam 67363296773 [facility] ONETOUCH DELICA PLUS [id number] null lancets 00901944952 [facility] INSULIN LISPRO 100 UNIT/ML SOLN Inject 2-7 Units under the skin into the appropriate area as directed 4 (Four) Times a Day Before Meals & at Bedtime. 09/15 insulin lispro 79487108672 [facility] insulin detemir (LEVEMIR) 100 UNIT/ML injection Inject 5 Units under the skin into the appropriate area as directed Every Morning. 09/15 LEVEMIR [facility] HYDROXYZINE PAMOATE 25 MG CAPS Take 1 capsule by mouth 3 (Three) Times a Day As Needed for Itching. 01/18 hydroxyzine pamoate 06596342945 [facility] GABAPENTIN 400 MG CAPS Take 2 capsules by mouth Every 8 (Eight) Hours for 4 days. 09/08 gabapentin 42974850080 [facility] ENOXAPARIN SODIUM 40 MG/0.4ML SOSY Inject 0.4 mL under the skin into the appropriate area as directed Daily for 60 days. 11/02 enoxaparin 22336915301 [facility] DOXYCYCLINE HYCLATE 100 MG CAPS Take 1 capsule by mouth 2 (Two) Times a Day for 14 days. 09/28 doxycycline hyclate 86193139298 [facility] DOCUSATE SODIUM 100 MG CAPS Take 1 capsule by mouth 2 (Two) Times a Day for 15 days. 09/18 docusate sodium 63367791652 [facility] DESVENLAFAXINE SUCCINATE ER 100 MG [id number] Take 2 tablets by mouth Daily. 09/15 desvenlafaxine succinate 04635353377 [facility] CYCLOBENZAPRINE HCL 5 MG TABS Take 1 tablet by mouth 3 (Three) Times a Day As Needed for Muscle Spasms. 01/18 cyclobenzaprine 88451144743 [facility]IE [facility] CETIRIZINE HCL 10 MG TABS Take 1 tablet by mouth Daily. 09/15 cetirizine 73568100891 [facility] ANTACID CALCIUM 500 MG CHEW null calcium carbonate 13269450412 [facility]IE [facility] BD PEN NEEDLE MICRO ULTRAFINE 32G X 6 MM null pen needle, diabetic 55375975583 [facility] ATORVASTATIN CALCIUM 80 MG TABS Take 1 tablet by mouth Every Night. 09/15 atorvastatin 26855757695 [facility] QULIPTA 60 MG TABS Take 1 tablet by mouth. 09/15 atogepant 25113174596 [facility] ASPIRIN 325 MG TABS Take 1 tablet by mouth Daily. 09/15 aspirin 28398600074 [facility] ALENDRONATE SODIUM 70 MG TABS Take 1 tablet by mouth Every 7 (Seven) Days. 09/15 alendronate 40788311814 [facility] ACETAMINOPHEN 500 MG TABS Take 1 tablet by mouth Every 6 (Six) Hours As Needed for Mild Pain. 09/15 acetaminophen 70639252316 [facility] ACETAMINOPHEN 325 MG TABS Take 2 tablets by mouth Every 6 (Six) Hours As Needed for Mild Pain. 09/15 acetaminophen 28887997076 [facility] Medications Administered No information available. [...] Procedures Code Procedure Name Date Entry Date F7278f,[id number] CBC with Differential 2023 CPT-98190 C- reactive protein CPT-sl [facility] Y3342u,[id number] CBC with Differential 2023 CPT-61365 C- reactive protein Z476103, H96808P CPK CPT-76605 Sedimentation Rate (ESR) 202 10/20/22 CPT-40493 CMP Vital Signs Date Name Value Unit [...]
--- OUTSIDE RECORDS SUMMARY | 2025-03-03 14:45 | XMS_ITS | Encounter Summary ---
Author Organization [facility] Address [address] [place] [address] Care Team Providers Care Chain Sales Representative Name Role Phone Vasu Gutierres MD Primary Care Provider [phone]- [phone] Encounter Details Date Type Department Care Team (Late st Contact Info) Description 02/23/2025 Telephone [facility] [address] [facility] [address] [place] [address] Nilda Love APRN [address] [place] [address] Social History Tobacco Use Types Packs/Day Years [...] encounter Miscellaneous Notes * Telephone Encounter - Nilda Love APRN - 02/23/2025 11:04 AM EDT [facility] Pre-Infusion Screening Citlali Robert Maravilla has an appointment for Vyepti infusion on 02/24/2025. ESTEBAN called patient to completepre-infusion screening questions. Unable to speak with patient. Left voicemail to remind patient of appt date, time, and location. Duration of phone call: 1 minutes Nilda Love APRN [facility] documented in this encounter Plan of Treatment Upcoming Encounters Date Type Department Care Team (Late st Contact Info) Description 03/09/2025 11:00 AM EDT Appointment [facility] [address] [place] [address] 04/04/2025 10:40 AM EDT Office Visit [place] [facility] [address] [place] [address] Sweetie Hewitt, PA [address] [place] [address] 06/01/2025 11:00 AM EST Appointment [facility] [address] [place] [address] documented as of this encounter Visit Diagnoses Not on filedocumented in this encounter Additional Health Concerns Assessment Noted Time A fall risk assessment has been complete d for the patient 12/02/2024 10:04 AM EDT A Body Mass Index follow-up plan has been documented for the patient 12/02/2024 10:09 AM EDT documented as of this encounter Care Teams Chain Sales Representative Relationship Specialty Start Date End Date Vasu Gutierres MD [address] [place] [address] PCP - General 05/19/24 documented as of this encounter
--- OUTSIDE RECORDS SUMMARY | 2025-03-03 14:45 | XMS_ITS | Encounter Summary ---
Author Organization [facility] Address [address] [place] [address] Care Team Providers Care Process Pumper Name Role Phone Vasu Gutierres MD Primary Care Provider +1- [phone] Reason for Visit * Reason Onset Date Comments HCN - Patient Message 02/10/2025 Reschedule Encounter Details Date Type Department Care Team (Late st Contact Info) Description 02/10/2025 Telephone [place] [facility] [address] [place] [address] Sweetie Hewitt, PA [address] [place] [address] HCN - Patient Message (Reschedule [...] for Call: Patient is calling back to [employer] appt. Best contact number and optimal time of day to reach caller: [phone] anytime Note: Please do not reply to [...] Reason for Call: Patient calling to r/s Botox appt Best contact number and optimal time of day to reach caller: [phone] or [phone] Note: Please do not reply to this message. Follow-up communication and further actions as a result of this message need to be communicated with the patient directly, if the patient is not active onMyChart. If the patient is active on MyChart, they will receive notification of the communication/outcome via [employer]. documented in this encounter Plan of Treatment Upcoming Encounters Date Type Department Care Team (Late st Contact Info) Description 03/09/2025 11:00 AM EDT Appointment [facility] [address] [address] 04/04/2025 10:40 AM EDT Office Visit [place] [facility] [address] [place] [address] Sweetie Hewitt, MECHE [address] [place] [address] 06/01/2025 11:00 AM EST Appointment [facility] [address] [place] [address] documented as of this encounter Visit Diagnoses Not on filedocumented in this encounter Additional Health Concerns Assessment Noted Time A fall risk assessment has been complete d for the patient 12/02/2024 10:04 AM EDT A Body Mass Index follow-up plan has been documented for the patient 12/02/2024 10:09 AM EDT documented as of this encounter Care Teams Process Pumper Relationship Specialty Start Date End Date Vasu Gutierres MD [address] [place] [address] PCP - General 05/19/24 documented as of this encounter
--- OUTSIDE RECORDS SUMMARY | 2025-03-03 14:45 | XMS_ITS | Encounter Summary ---
Author Organization [facility] yste Address [address] [place] [address] Care Team Providers Care Ginning Operator Name Role Phone Vasu Gutierres MD Primary Care Provider Encounter Details Date Type Department Care Team (Late st Contact Info) Description 02/11/2024 Telephone [facility] [address] [facility] [address] [place] [address] Danis Chaidez, PT [address] [facility] [address] [place], [place] [id number] Social History Tobacco Use Types Packs/Day Years Used Date Smoking Tobacco: Former Cigarettes Q uit: 07/17/2023 Passive Smoke Exposure: Current Smokeless Tobacco: Never Alcohol Use Standard Drinks/Week Comments Never 0 (1 standard drink = 0.6 oz pur e alcohol) [facility] Utilities Answer Date Recorded In the past 12 months has [employer], gas, oil, or water [employer] threatened to shut off services in your home? No 08/18/2023 AUDIT-C Answer Date Recorded Q1: How often do you have a drink containing alcohol? Never 08/25/2023 Q2: How many drinks containi ng alcohol do you have on a typical day when you are drinking? Patient does not drink Q3: How often do you have si x or more drinks on one occasion? Never 08/25/2023 Overall Financial Resource Strain (CARDIA) Answe r Date Recorded How hard is it for you to pa y for the very basics like food, housing, medical care, and heating? Not hard at all 08/25/2023 [facility] of Occupat ional Health - Occupational Stress Questionnaire Answer Date Recorded Do you feel stress - tense, restless, nervous, or anxious, or unable to sleep at night because your mind is troubled all the time - these days? Only a little 08/27/2023 Exercise Vital Sign Answer Date Recorde d On average, how many days pe r week do you engage in moderate to strenuous exercise (like a brisk walk)? Patient declined On average, how many minutes do you engage in exercise at this level? Patient declined 08/25/2023 Hunger Vital Sign Answer Date Recorded Within the past 12 months, y ou worried that your food would run out before you got the money to buy more. Never true 08/18/19 24 Within the past 12 months, t he food you bought just didn't last and you didn't have money to get more. Never true 08/18/2023 PRAPARE - Transportation Answer Date Re corded In the past 12 months, has l ack of transportation kept you from medical appointments or from getting medications? No 07/22 In the past 12 months, has l ack of transportation kept you from meetings, work, or from getting things needed for daily living? No 08/18/2023 Abuse Screen Answer Date Recorded Feels Unsafe at Home or Work/School no 08/16/2023 Feels Threatened by Someone no 07/22 Does Anyone Try to Keep You From Having Contact with Others or Doing Things Outside Your Home? no 08/16/2023 Physical Signs of Abuse Present no 08/16/2023 Housing Stability Answer Date Recorded Current Living Arrangements home 07/22 Potentially Unsafe Housing Conditions none 08/18/2023 Family and Community Support Answer Aubrey e Recorded If for any reason you need h elp with day-to-day activities such as bathing, preparing meals, shopping, managing finances, etc., do you get the help you need? I get all the help I need 08/25/2023 How often do you feel lonely or isolated from those around you? Rarely 08/25/2023 Employment Answer Date Recorded Do you want help finding or keeping work or a job? I do not need or want help 08/25/2023 Disabilities Answer Date Recorded Difficulty Concentrating, Remembering or Making Decisions no 08/29/2023 Difficulty Managing Errands Independently no 08/29/2023 Education Answer Date Recorded Do you want help with school or training? For example, starting or completing job training or getting a high school diploma, GED or equivalent No 08/25/2023 Preferred Language Not on file 08/25/2023 PHQ-2 Answer Date Recorded Retired PHQ-9: Brief Depression Severity Measure Score 0 08/25/2023 Comments No Sex and Gender Information Value Date Recorded Sex Assigned at Not on file Legal Sex Female 3:53 PM EDT Gender Identity Not on file Sexual Orientation Not on file documented as of this encounter Plan of Treatment Upcoming Encounters Date Type Department Care Team (Late st Contact Info) Description 10/07/2025 11:00 AM EDT Office Visit [facility] [address] [place] [address] Cheo Fu MD [address] [facility] [address] [place] [address] documented as of this encounter Visit Diagnoses Not on filedocumented in this encounter Additional Health Concerns Infection Onset Date Last Indicated Resolved Time COVID (rule out) 09/02/2024 09/02/2024 09/02/2024 10:52 AM EST Influenza 09/02/2024 09/02/2024 10/02/2024 9:08 PM EDT documented as of this encounter Care Teams Ginning Operator Relationship Specialty Start Date End Date Vasu Gutierres MD [address] [facility] [address] [place] [address] PCP - General Family Medicine 03/05/23 documented as of this encounter
--- OUTSIDE RECORDS SUMMARY | 2025-03-03 14:45 | XMS_ITS | Encounter Summary ---
Author Organization Healthcare Address [address] [place] [address] Care Team Providers Care Optical Systems Engineer Name Role Phone Pcp, No Primary Care Provider Vasu Be MD Primary Care Provider +1- [phone] Reason for Referral * Consultation (Routine) - Closed Specialty Diagnoses / Procedures Referred By Contac t Referred To Contact Neurology Diagnoses Chronic intractable headache, unspecified headache type Tardive dyskinesia History of drug abuse History of stroke Major depression in remission ([facility]) Mira Dolan MD [address] [place] [address] Phone: tel: fax: Luis Armando Weeks MD [address] [facility] [address] [place] [address] Phone: tel: fax: Referral ID Status Reason Start Date Expiration Date V isits Requested Visits Authorized [id number] Closed Specialty Services Required 03/05/2022 09/04/2023 1 1 Encounter Details Date Type Department Care Team (Late st Contact Info) Description 03/05/2022 Community [facility] [address] [place] [address] Mira Dolan MD [address] [facility] [address] [place] [id number] Chronic intractable headache, unspecified headache type [...] Upcoming Encounters Date Type Department Care Team ([facility] st Contact Info) Description 03/09/2025 11:00 AM EDT Appointment [facility] [address] [facility] [address] [place] [address] 04/04/2025 10:40 AM EDT Office Visit [place] [facility] [address] [place] [address] Sweetie Hewitt, PA [address] [place] [address] 06/01/2025 11:00 AM EST Appointment [facility] [address] [facility] Room [address] [address] Scheduled Referrals Name Type Priority Associated Diagnoses [...] remission documented in this encounter Care Teams Optical Systems Engineer Relationship Specialty Start Date End Date Pcp, No [address] [place] [address] PCP - General Family Medicine 06/04/23 05/18/24 Vasu Gutierres MD [address] [place] [address] PCP - General 05/19/24 documented as of this encounter
--- OUTSIDE RECORDS SUMMARY | 2025-03-03 14:45 | XMS_ITS ---
Author Organization [facility] Care Team Providers Care Director Data Name Role Phone Vasu Gutierres Unavailable Unavaila ble Allergies and adverse reactions Code CodeSystem Substance Reaction Severity StartDate Concern Status viibyrd Unknown 05/15/2017 active Toradol Unknown 05/15/[address] Sulfa Antibiotics Unknown 05/15/2017 active Seroquel Unknown 05/15/2017 active Saccharin Unknown 05/15/2017 active Relpax Unknown 05/15/2017 active Reglan Unknown 05/15/2017 active 7984 RXNORM Penicillin Skin reaction - finding (code- 319868999, SNOMED CT) Mild 05/15/2017 active [place] Unknown 05/15/2017 active 6813 RXNORM Methadone Unknown 05/15/2017 active Keflex Unknown 05/15/2017 active Imitrex Unknown 05/15/2017 active 4053 RXNORM Erythromycin Unknown 05/15/2017 active 3418 RXNORM Dihydroergotamine Unknown 05/15/2017 act claribel Cipro Unknown 05/15/2017 active Aspartame Unknown 05/15/2017 active Amerge Unknown 05/15/2017 active Care Team Name Role Address Phone Organization Dates Vasu Gutierres PCP [address] [place] [address], [place], [address], [place] (Office): [facility] 07/05/2021 - 07/05/2021 Goals Section Goals Description [...] completed tuberculin skin test; unspecified formulation lotNumber: [id number] expiry: 10/12/2022 Mfg: Sandfi-pasteur Given 0.1 ml Left Forearm intradermally 98 CVX created date: 06/13/2021 consent date: 06/13/2021 administer ed date: 06/13/2021 TB 1 Step Mantoux (PPD) completed tuberculin skin test; unspecified formulation lotNumber: [id number] expiry: 06/05/2018 Mfg: Tubersol Given 0.1 ml Left Forearm intradermally 98 CVX created date: 05/15/2017 consent date: 05/15/2017 administer ed date: 05/15/2017 TB 2 Step Mantoux Skin Test completed tuberculin skin test; unspecified formulation lotNumber: [id number] expiry: 10/12/2022 Mfg: sanofi pasteur limited Given 0.1 ml Left Forearm intradermally Step 2 of Multi-step with next step required 98 CVX created date: 06/29/2021 consent date: 07/04/2021 administer ed date: 06/20/2021 neg TB 2 Step Mantoux Skin Test completed tuberculin skin test; unspecified formulation lotNumber: [id number] expiry: 10/12/2022 Mfg: sanfoi past unli Given [...] Status 1 ALTERED MENTAL STATUS, UNSPECIFIED 06/13/[address] active 2 ANXIETY DISORDER, UNSPECIFIED 06/13/[address] active 3 ATHEROSCLEROTIC HEART DISEASE OF [place] CORONARY ARTERY WITHOUT ANGINA PECTORIS 06/13/[address] active 4 CHRONIC OBSTRUCTIVE PULMONARY DISEASE, UNSPECIFIED 06/13/[address] active 5 DEHYDRATION 06/13/[address] active 6 DEPRESSION, UNSPECIFIED 06/13/[address] active 7 DYSPHAGIA, OROPHARYNGEAL PHASE 06/13/[address] active 8 ESSENTIAL (PRIMARY) HYPERTENSION 06/13/[address] active 9 GASTRO-ESOPHAGEAL REFLUX DISEASE WITHOUT ESOPHAGITIS 06/13/[address] active 10 HYPERLIPIDEMIA, UNSPECIFIED 06/13/[address] active 11 HYPOTHYROIDISM, UNSPECIFIED 06/13/[address] active 12 MAJOR DEPRESSIVE DISORDER, RECURRENT, UNSPECIFIED 06/13/[address] active 13 MIGRAINE, UNSPECIFIED, NOT INTRACTABLE, WITHOUT STATUS MIGRAINOSUS 06/13/[address] active 14 MUSCLE WEAKNESS (GENERALIZED) 06/13/[address] active 15 OTHER SPECIFIED ARTHRITIS, UNSPECIFIED SITE 06/13/[address] active 16 PATIENT'S OTHER NONCOMPLIANCE WITH MEDICATION REGIMEN 06/13/[address] active 17 PERSONAL HISTORY OF BENIGN NEOPLASM OF THE BRAIN 06/13/[address] active 18 PERSONAL HISTORY OF TRANSIENT ISCHEMIC ATTACK (TIA), AND CEREBRAL INFARCTION WITHOUT RESIDUAL DEFICITS 06/13/[address] active 19 TYPE 2 DIABETES MELLITUS WITH HYPERGLYCEMIA 06/13/[address] active 20 UNSTEADINESS ON FEET 06/13/[address] active 21 CHRONIC MIGRAINE WITHOUT AURA 05/15/20 17 06/13/[address] completed 22 HYPERLIPIDEMIA, UNSPECIFIED 05/15/20 17 06/13/[address] completed 23 [facility] (CURRENT) USE OF INSULIN 05/15/20 17 06/13/[address] completed 24 NICOTINE DEPENDENCE, UNSPECIFIED, UNCOMPLICATED 05/15/[address] active 25 OTHER SPECIFIED ANXIETY DISORDERS 05/15/20 17 06/13/[address] completed 26 OTHER SYMPTOMS AND SIGNS INVOLVING THE MUSCULOSKELETAL SYSTEM 05/15/20 17 06/13/[address] completed 27 TUBAL LIGATION STATUS 05/15/20 17 06/13/[address] completed 28 TYPE 2 DIABETES MELLITUS WITH DIABETIC POLYNEUROPATHY 05/15/20 17 06/13/[address] completed 29 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, INITIAL ENCOUNTER 05/15/20 17 06/13/[address] completed Reason for Referral No Reasons for Referral Entered Social History Social History Observation Description Start Date End Date Code Code System Current Smoking Status Tobacco smoking consumption unknown 018160313 SNOMED CT Sex Assigned At Female 1965 [address]96-0 [facility] Gender Identity Vital Signs Code Code System Vitals Name Values and Units Timing Information 2339-0 [facility] Blood Sugar Value=90.0 Units=mg/dL 07/04/2021 8310-5 [facility] Body Temperature Value=98.5 Units= F 07/04/2021 43765-0 [facility] O2 % BldC Oximetry Value=97.0 Units= % 07/04/2021 68138-0 LOINC Weight Ibmxv=388.2 Units=Lbs 03816-0 [facility] Pain Level Value=2.0 07/03/2021 9279-1 [facility] Respiratory Rate Value=20.0 Units=/m in 07/01/2021 8462-4 [facility] Blood Pressure-Diastolic Value=80 Un its=mmHg 07/01/2021 8480-6 [facility] Blood Pressure-Systolic Pktaz=967 Un its=mmHg 07/01/2021 8867-4 [facility] Heart rate Value=88.0 Units=/min 06/2021 8302-2 [facility] Height Value=66.0 Units=Inches 06/13/2021
--- OUTSIDE RECORDS SUMMARY | 2025-03-03 14:45 | XMS_ITS | Clinical Summary ---
Author Organization [facility] Address [address] [place] [address] Care Team Providers Care Crop Duster Helper Name Role Phone Vasu Gutierres MD Primary Care Provider +1- [phone] Allergies Active Allergy Reactions Criticality Noted Date [...] (one) time each day. Active Continuous Glucose Deputy [employer] Building Guard (RegenerateStyle John 14 Day [place]) device 3 Active Continuous Glucose Sensor (FreeStyle John 2 Sensor) [facility] [place] USE DIRECTED (CHANGE EVERY 14 D AYS. [...] mouth 3 (three) times a day. Active Post-iTouch Ultra Test test strip USE TO TEST 4 TIMES DAILY DIRECTED. Active hydrOXYzine pamoate (Vistaril) 25 MG capsule 4 Active Levemir FlexPen 100 UNIT/ML injection pen 4 Active BD Pen Needle Micro U/F 32G X 6 MM misc 2 (two) times a day. as directed 4 Active Lancets (OneTouch Delica Plus [id number]) misc 4 (four) times a day. 4 [...] Encounters Date Type Department Care Team Description 02/23/2025 Telephone [facility] [address] [place] [address] Nilda Love APRN 02/10/2025 Telephone [facility] [address] [place] [address] Sweetie Hewitt PA HCN - Patient Message (Reschedule ) 12/15/2024 Telephone [facility] [address] [place] [address] Sweetie Hewitt PA 12/14/2024 Telephone [place] [facility] [address] [place] [address] Sweetie Hewitt PA 12/02/2024 9:58 AM EDT - 12/02/2024 11:59 PM EDT Hospital Encounter [facility] [address] [place] [address] Migraine without aura and without status migrainosus, not intractable (Primary Dx) Discharge Disposition: Home or Self Care 12/02/2024 Travel 12/01/2024 Telephone [facility] [address] [place] [address] Stella Gilmore APRN from Last [...] [facility] [address] [place] [address] 04/04/2025 10:40 AM EDT Office Visit [place] [facility] [address] [place] [address] Sweetie Hewitt, PA [address] [place] [address] 06/01/2025 11:00 AM EST Appointment [facility] [address] [place] [address] Health Maintenance Due Date Last Done Comments [...] of 2 - PCV) 10/25/2020 10/26/2019, 04/18/2014 [id number] Vaccine (3 - season) 2024 05/26/2021, 10/21/2020 [facility]-Influenza Vaccine (#1) [...] patient's age to complete this topic Insurance [place] [id number] [place] MEDICARE Care Teams Crop Duster Helper Relationship Specialty Start Date End Date Vaus Gutierres MD [address] [place] [address] PCP - General 05/19/24
--- OUTSIDE RECORDS SUMMARY | 2025-03-03 14:45 | XMS_ITS | Encounter Summary ---
Author Organization Healthcare Address [address] [place] [address] Care Team Providers Care Breading Machine Tender Name Role Phone Vasu Gutierres MD Primary Care Provider +1- [phone] Encounter Details Date Type Department Care Team (Late st Contact Info) Description 12/15/[address] [facility] [address] [place] [address] Sweetie Hewitt, PA [address] [place] [address] Social History Tobacco Use Types [...] optimal time of day to reach caller: [phone] Note: Please do not reply to this [...] [facility] [address] [place] [address] 04/04/2025 10:40 AM EDT Office Visit [place] [facility] [address] [place] [address] Sweetie Hewitt D, PA [address] [place] [address] 06/01/2025 11:00 AM EST Appointment [facility] [address] [place] [address] documented as of this encounter Visit Diagnoses Not on filedocumented in this encounter Additional Health Concerns Assessment Noted Time A fall risk assessment has been complete d for the patient 12/02/2024 10:04 AM EDT A Body Mass Index follow-up plan has been documented for the patient 12/02/2024 10:09 AM EDT documented as of this encounter Care Teams Breading Machine Tender Relationship Specialty Start Date End Date Vasu Gutierres MD [address] [place] [address] PCP - General 05/19/24 documented as of this encounter
--- OUTSIDE RECORDS SUMMARY | 2025-03-03 14:45 | XMS_ITS | Encounter Summary ---
Author Organization Healthcare Address [address] [place] [address] Care Team Providers Care Medical Collections Name Role Phone Vasu Gutierres MD Primary Care Provider +1- [phone] Encounter Details Date Type Department Care Team (Late st Contact Info) Description 12/14/2024 Telephone [place] [facility] [address] [place] [address] Sweetie Hewitt, PA [address] [place] [address] Social History Tobacco Use Types [...] optimal time of day to reach caller: [phone] Note: Please do not reply to this [...] [facility] [address] [place] [address] 04/04/2025 10:40 AM EDT Office Visit [place] [facility] [address] [place] [address] Sweetie Hewitt, PA [address] [place] [address] 06/01/2025 11:00 AM EST Appointment [facility] [address] [place] [address] documented as of this encounter Visit Diagnoses Not on filedocumented in this encounter Additional Health Concerns Assessment Noted Time A fall risk assessment has been complete d for the patient 12/02/2024 10:04 AM EDT A Body Mass Index follow-up plan has been documented for the patient 12/02/2024 10:09 AM EDT documented as of this encounter Care Teams Medical Collections Relationship Specialty Start Date End Date Vasu Gutierres MD [address] [place] [address] PCP - General 05/19/24 documented as of this encounter
--- OUTSIDE RECORDS SUMMARY | 2025-03-03 14:45 | XMS_ITS | Clinical Summary ---
Author Organization [facility] Address [address] [place] [address] Care Team Providers Care An/Syq 13 Nav/C2 Operator Name Role Phone Vasu Gutierres MD Primary Care Provider Allergies Active Allergy Reactions Criticality Noted Date Comments Aspartame Unknown (See Comments) Low 05/15/2017 Cephalexin Itching,Unknown (See Comments) Medium 05/15/2017 Cephalosporins Itching Medium 05/01/2022 Ciprofloxacin Unknown - High Severity High 2 Dihydroergotamine Unknown - Low Severity 2022 Eletriptan Unknown - High Severity,Other (See Comments),Unknown (See Comments) Low 05/15/2017 Erythromycin Unknown - Low Severity High 03/05/2023 Methadone Unknown - Low Severity 03/05/2023 Naratriptan Unknown - High Severity 05/01/2022 Naratriptan Hcl Unknown - Low Severity High 09/08/19 24 Penicillins Unknown - Low Severity,Other (See Comments),GI Intolerance Medium 05/15/2017 Prunus Persica Other (See Comments) Low 05/15/2017 Quetiapine Unknown - High Severity,Other (See Comments),Unknown (See Comments) High 05/15/2017 Quetiapine Fumarate Unknown - High Severity High Quinolones Rash Medium 05/01/2022 Metoclopramide Unknown - Low Severity 3 Saccharin Other (See Comments) Low 05/15/2017 Sulfa Antibiotics Unknown (See Comments) Low 2016 Sumatriptan Unknown - High Severity High 05/01/2022 Ketorolac Tromethamine Unknown - Low Severity 0 03/05/2023 Trimethoprim Rash Medium 05/01/2022 Vilazodone Unknown - High Severity,Unknown (See Comments) Low 05/01/2022 Vilazodone Hcl Unknown - High Severity,Unknown (See Comments) High 09/08/2023 Ondansetron Nausea And Vomiting 03/12/2023 Per pt report Medications cetirizine (zyrTEC) 10 MG tablet Take 1 tablet by mouth Daily. Active omeprazole (priLOSEC) 40 MG capsule Take 1 capsule by mouth Daily. Active traZODone (DESYREL) 150 MG tablet Take 3 tablets by mouth Every Night. Active promethazine (PHENERGAN) 25 MG tablet Take 1 tablet by mouth Every 6 (Six) Hours As Needed for Nausea or Vomiting. Active atorvastatin (LIPITOR) 80 MG tablet Take 1 tablet by mouth Every Night. 90 tablet 3 Active Atogepant (Qulipta) 60 MG tablet Take 1 tablet by mouth. Active aspirin (Oliverio Aspirin) 325 MG tablet Take 1 tablet by mouth Daily. 60 tablet 3 Active Valbenazine Tosylate 80 MG capsule Take 1 capsule by mouth Daily. Active levETIRAcetam (KEPPRA) 500 MG tablet Take 1 tablet by mouth Every 12 (Twelve) Hours. 60 tablet 1 3 Active Calcium Antacid 500 MG chewable tablet 3 Active OneTouch Ultra test strip 3 Active BD Pen Needle Micro U/F 32G X 6 MM [facility] 3 Active Lancets (OneTouch Delica Plus [id number]) [facility] 3 Active nicotine (NICODERM CQ) 21 MG/24HR patch 3 Active lisinopril (PRINIVIL,ZESTR IL) 40 MG tablet Take 1 tablet by mouth Daily. 4 Active NIFEdipine XL (ADALAT CC) 30 MG 24 hr tablet Take 1 tablet by mouth Daily. 4 Active polyethylene glycol (MIRALAX) 17 g packet Take 17 g by mouth Daily. 4 Active desvenlafaxine (PRISTIQ) 100 MG 24 hr tablet Take 2 tablets by mouth Daily. 4 Active alendronate (FOSAMAX) 70 MG tablet Take 1 tablet by mouth Every 7 (Seven) Days. Active acetaminophen (TYLENOL) 500 MG tablet Take 1 tablet by mouth Every 6 (Six) Hours As Needed for Mild Pain. 30 tablet 4 Active melatonin 5 MG tablet tablet Take 1 tablet by mouth At Night As Needed (insomnia). 4 Active acetaminophen (TYLENOL) 325 MG tablet Take 2 tablets by mouth Every 6 (Six) Hours As Needed for Mild Pain. 4 Active Insulin Lispro (humaLOG) 100 UNIT/ML injection Inject 2-7 Units under the skin into the appropriate area as directed 4 (Four) Times a Day Before Meals & at Bedtime. 4 Active prochlorperazin e (COMPAZINE) 10 MG/2ML injection Infuse 2 mL into a venous catheter Every 8 (Eight) Hours As Needed (headache/migrai ne (give with iv benadryl)). 4 Active Lidocaine 4 % Place 1 patch on the skin as directed by provider Daily. Remove & Discard patch within 12 hours or as directed by MD To right knee prn 4 Active sennosides-docu sate (PERICOLACE) 8.6-50 MG per tablet Take 2 tablets by mouth 2 (Two) Times a Day As Needed for Constipation. 4 Active cyclobenzaprine (FLEXERIL) 5 MG tablet Take 1 tablet by mouth 3 (Three) Times a Day As Needed for Muscle Spasms. 12 tablet 4 Active aztreonam (AZACTAM) 1 g topical powder 4 Active daptomycin (CUBICIN) solution IVPB 4 Active hydrOXYzine (ATARAX) 25 MG tablet 4 Active HYDROcodone-jose taminophen (NORCO) 10-325 MG per tablet Take 1 tablet by mouth Every 6 (Six) Hours As Needed for Moderate Pain. Active Farxiga 10 MG tablet 4 Active tiZANidine (ZANAFLEX) 4 MG tablet 4 Active gabapentin (NEURONTIN) 800 MG tablet 4 Active Levemir FlexPen 100 UNIT/ML injection 4 Active fluticasone (FLONASE) 50 MCG/ACT nasal sprayIndication s:Influenza A Administer 2 sprays into the nostril(s) as directed by provider Daily. 16 g 5 Active Active Problems Problem Noted Date Diagnosed Date Wound infection after surgery 08/16/2023 S/P ORIF (open reduction internal fixation) frac ture 08/15/2023 Surgical site infection 08/15/2023 History of CVA (cerebrovascular accident) 2023 Closed fracture of right ankle 07/17/2023 Mixed hyperlipidemia 07/17/2023 History of CVA (cerebrovascular accident) 2022 History of DVT in adulthood 06/09/2023 History of brain tumor 06/09/2023 Type 2 diabetes mellitus 06/09/2023 Elevated troponin 06/09/2023 HTN (hypertension) 03/12/2023 HLD (hyperlipidemia) 03/12/2023 History of DVT (deep vein thrombosis) 03/12/2023 Resolved Problems Problem Noted Date Diagnosed Date Resolved Date Altered mental status, unspecified 06/09/2023 06/10/2023 Hypoglycemia 06/09/2023 07/25/2023 Acute right-sided weakness 03/12/2023 0 03/13/2023 Encounters Date Type Department Care Team Description 12/22/2024 11:23 AM EDT - 12/22/2024 2:20 PM EDT Emergency [facility] [address] [id number] Wesley Stuart MD Constipation, unspecified constipation type (Primary Dx) Discharge Disposition: Home or Self Care 12/22/2024 Travel 12/05/2024 10:41 PM EDT - 12/06/2024 1:53 AM EDT Emergency [facility] [address] [place] [address] Jayson Jaime MD Tachycardia (Primary Dx); Elevated blood pressure reading with diagnosis of hypertension; History of cerebrovascular accident (CVA) with residual deficit; Tobacco use; History of diabetes mellitus; History of substance use disorder Discharge Disposition: Home or Self Care 12/05/2024 Travel from Last 3 Months Social History Tobacco Use Types Packs/Day Years Used Date Smoking Tobacco: Former Cigarettes Q uit: 07/17/2023 Passive Smoke Exposure: Current Smokeless Tobacco: Never Tobacco Cessation:Counseling Given: No Alcohol Use Standard Drinks/Week Comments Never 0 (1 standard drink = 0.6 oz pur e alcohol) [facility] Utilities Answer Date Recorded In the past 12 months has th e [employer], gas, oil, or water [facility] threatened to shut off services in your [...] and heating? Not hard at all 08/25/2023 [facility] of Occupat ional Health - Occupational Stress [...] Feels Unsafe at Home or Work/School no 12/22/2024 Feels Threatened by Someone no 10/2024 Does Anyone Try to Keep You From Having Contact with Others or Doing Things Outside Your Home? no 12/22/2024 Physical Signs of Abuse Present no 12/22/2024 Housing Stability Answer Date Recorded Current Living [...] Sign Reading Time Taken Comments Blood Pressure 161/88 12/22/2024 2:00 PM EDT Pulse 54 12/22/2024 2:00 PM EDT Temperature 36.7 C (98 F) 12/22/2024 10:53 AM EDT Respiratory Rate 16 12/22/2024 10:53 AM EDT Oxygen Saturation 95% 12/22/2024 2:00 PM EDT Inhaled Oxygen Concentration - - Weight 59.9 kg (132 lb) 12/22/2024 10:53 AM EDT Height 165.1 cm (5' 5 ) 12/22/2024 10:53 AM EDT Body Mass Index 21.97 12/22/2024 10:53 AM EDT Plan of Treatment Upcoming Encounters Date Type Department Care Team (Late st Contact Info) Description 10/07/2025 11:00 AM EDT Office Visit [facility] [address] [place] [address] Cheo Fu MD [address] [facility] [address] [place] [address] Health Maintenance Due Date Last Done Comments Annual Gynecologic Pelvic an d Breast Exam 1963 DIABETIC EYE EXAM 1973 DIABETIC FOOT EXAM 1973 URINE MICROALBUMIN-CREATININ E RATIO (uACR) 1973 PAP SMEAR 02/26/1984 MAMMOGRAM 2003 COLOGUARD 02/26/2008 COLON CANCER SCREENING 5 YEA R SIGMOIDOSCOPY 02/26/2008 COLONOSCOPY 02/26/2008 COLORECTAL CANCER SCREENING 02/26/2008 CT COLONOGRAPHY 02/26/2008 FECAL OCCULT BLOOD TEST 02/26/2008 FIT Testing (1 year) 02/26/2008 ZOSTER VACCINE (1 of 2) 2013 Pneumococcal Vaccine 50+ (2 of 2 - PCV) 10/25/2020 10/26/2019, 04/18/2014 ANNUAL WELLNESS VISIT 05/21/2023 HEPATITIS C SCREENING 05/21/2023 COVID-19 Vaccine (3 - 2023-2 5 season) 2024 05/26/2021, 10/21/2020 HEMOGLOBIN A1C 06/30/2024 12/30/2023, 07/22, 06/09/2023, Additional history exists LIPID PANEL 12/29/2024 12/30/2023, 05/22, 03/13/2023, Additional history exists INFLUENZA VACCINE 04/20/2025 04/02/2022, , 10/26/2019, Additional history exists TDAP/TD VACCINES (2 - Td or Tdap) 07/10/2027 017 Medical Devices Implanted Type Area Business Banking Officer Device Identifier Shelf Expiration Date Model / Serial / Lot Scrw Yunior Lp Ss 3.5x32mm - [id number] Implanted:Qty: 1 on 07/22/2023 by Cheo Fu MD at [facility] Implant Right: Ankle ARTHREX [id number] / / Plt Hk Medl Ss 5h - [id number] Implanted:Qty: 1 on 07/22/2023 by Cheo Fu MD at [facility] Implant Right: Ankle ARTHREX [id number] / / Scrw Yunior Lp Ss 3.5x26mm - [id number] Implanted:Qty: 1 on 07/22/2023 by Cheo Fu MD at [facility] Implant Right: Ankle ARTHREX [id number] / / Scrw Josiah Lp Thrd/Shrt Ss 4x42mm - [id number] Implanted:Qty: 1 on 07/22/2023 by Cheo Fu MD at [facility] Implant Right: Ankle ARTHREX [id number] / / Plt Dist Ankl Lk 6h 104mm Rt - [id number] Implanted:Qty: 1 on 07/22/2023 by Cheo Fu MD at [facility] Implant Right: Ankle ARTHREX [id number] / / Scrw Yunior Lp Ss 3.5x50mm - [id number] Implanted:Qty: 1 on 07/22/2023 by Cheo Fu MD at [facility] Implant Right: Ankle ARTHREX [id number] / / Scrw Yunior Lp Ss 3.5x42mm - [id number] Implanted:Qty: 1 on 07/22/2023 by Cheo uF MD at [facility] Implant Right: Ankle ARTHREX [id number] / / Scrw Compr Sourav Hook Ful/Thrd Ss 2.7x12mm - [id number] Implanted:Qty: 1 on 07/22/2023 by Cheo Fu MD at [facility] Implant Right: Ankle ARTHREX [id number] / / Scrw Compr Sourav Hook Ful/Thrd Ss 2.7x16mm - [id number] Implanted:Qty: 3 on 07/22/2023 by Cheo Fu MD at [facility] Implant Right: Ankle ARTHREX [id number] / / Scrw Yunior Lp Ss 3.5x12mm - [id number] Implanted:Qty: 3 on 07/22/2023 by Cheo Fu MD at [facility] Implant Right: Ankle ARTHREX [id number] / / Gw Troc Tp 1.15l306zq - [id number] Implanted:Qty: 2 on 07/22/2023 by Cheo Fu MD at [facility] Implant Right: Ankle ARTHREX [id number] / / Explanted Type Area Business Banking Officer Device Identifier Shelf Expiration Date Model / Serial / Lot Scrw Yunior Lp Ss 2.7x16mm - [id number] Explanted:Qty: 1 on 07/22/2023 by Cheo Fu MD at [facility] Implant Right: Ankle ARTHREX [id number] / / Scrw Yunior Lp Ss 2.7x18mm - [id number] Explanted:Qty: 1 on 07/22/2023 by Cheo Fu MD at [facility] Implant Right: Ankle ARTHREX [id number] / / Procedures Procedure Name Priority Date/Time Associated Diagnosis Comments CT ABDOMEN PELVIS W CONTRAST STAT 12/22/2024 1:25 PM EDT URINALYSIS W/ MICROSCOPIC IF INDICATED (NO CULTURE) STAT 12/22/2024 12:02 PM EDT ROLAND TOP STAT 12/22/2024 11:51 AM EDT GOLD TOP - SST STAT 12/22/2024 11:51 AM EDT LAVENDER TOP STAT 12/22/2024 11:51 AM EDT DK GREEN TOP STAT 12/22/2024 11:51 AM EDT CBC AND DIFFERENTIAL STAT 12/22/2024 11:51 AM EDT CBC WITH AUTO DIFFERENTIAL STAT 12/22/2024 11:51 AM EDT LACTIC ACID, PLASMA STAT 12/22/2024 1 1:51 AM EDT LIPASE STAT 12/22/2024 11:51 AM EDT COMPREHENSIVE METABOLIC PANEL STAT 12/22/2024 11:51 AM EDT ECG 12-LEAD STAT 12/05/2024 11:15 PM EDT HEMOGLOBIN A1C STAT 12/30/2023 11:38 AM EDT Diabetic polyneuropathy associated with other specified diabetes mellitus Hyperlipidemia, unspecified hyperlipidemia type LIPID PANEL Routine 12/30/2023 11:38 AM EDT Diabetic polyneuropathy associated with other specified diabetes mellitus Hyperlipidemia, unspecified hyperlipidemia type from Last 3 Months or Most Recently Relevant to Health Maintenance Results * CT Abdomen Pelvis With Contrast (12/22/2024 1:25 PM EDT) Anatomical Region Laterality Modality Abdomen, Pelvis N/A Computed Tomogra phy 12/22/2024 1:31 PM EDT Impressions 12/22/2024 1:36 PM EDT Impression: 1.No acute intra-abdominal abnormality identified. 2.Age indeterminate although likely chronic compression fractures of T10 and L1. Correlate with symptoms and history. Electronically Signed: Wesley Lyons MD 12/22/2024 1:36 PM EDT Workstation ID: [id number] Narrative 12/22/2024 1:[address] ABDOMEN PELVIS W CONTRAST Date of Exam: 12/22/2024 1:24 PM EDT Indication: llq abd pain. Comparison: None available. Technique: Axial CT images were obtained of the abdomen and pelvis following the uneventful intravenous administration of 100 cc Isovue-300. Reconstructed coronal and sagittal images were also obtained. Automated exposure control and iterative construction methods were used. Findings: LUNG BASES: Unremarkable without mass or infiltrate. LIVER: Unremarkable parenchyma without focal lesion. BILIARY/GALLBLADDER: Unremarkable SPLEEN: Unremarkable PANCREAS: Unremarkable ADRENAL: Unremarkable KIDNEYS: Unremarkable parenchyma with no solid mass identified. No obstruction. No calculus identified. GASTROINTESTINAL/MESENTERY: No evidence of obstruction nor inflammation. The appendix is normal. MESENTERIC VESSELS: Patent. AORTA/IVC: Normal caliber. RETROPERITONEUM/LYMPH NODES: Unremarkable REPRODUCTIVE: Unremarkable BLADDER: Unremarkable OSSEUS STRUCTURES: There are age indeterminate although likely chronic compression fractures of T10 and L1. Correlate with symptoms and history. Procedure Note Wesley Lyons MD - 12/22/2024 CT ABDOMEN PELVIS W CONTRAST Date of Exam: 12/22/2024 1:24 PM EDT Indication: llq abd pain. Comparison: None available. Technique: Axial CT images were obtained of the abdomen and pelvisfollowing the uneventful intravenous administration of 100 cc Isovue-300.Reconstructed coronal and sagittal images were also obtained. Automatedexposure control and iterative construction methods were used. Findings: LUNG BASES: Unremarkable without mass or infiltrate. LIVER: Unremarkable parenchyma without focal lesion. BILIARY/GALLBLADDER: Unremarkable SPLEEN: Unremarkable PANCREAS: Unremarkable ADRENAL: Unremarkable KIDNEYS: Unremarkable parenchyma with no solid mass identified. Noobstruction. No calculus identified. GASTROINTESTINAL/MESENTERY: No evidence of obstruction nor inflammation.The appendix is normal. MESENTERIC VESSELS: Patent. AORTA/IVC: Normal caliber. RETROPERITONEUM/LYMPH NODES: Unremarkable REPRODUCTIVE: Unremarkable BLADDER: Unremarkable OSSEUS STRUCTURES: There are age indeterminate although likely chroniccompression fractures of T10 and L1. Correlate with symptoms andhistory. IMPRESSION: Impression: 1.No acute intra-abdominal abnormality identified. 2.Age indeterminate although likely chronic compression fractures of T10and L1. Correlate with symptoms and history. Electronically Signed: Wesley Lyons MD 12/22/2024 1:36 PM EDT Workstation ID: [id number] Harsha Grady Jr., PA-C [facility] CT ORDERABLES Fin al Result * (ABNORMAL) Urinalysis With Microscopic If Indicated (No Culture) - Urine, Clean Catch (12/22/2024 12:02 PM EDT) Color, UA Yellow Yellow, Straw 12/22/2024 12:23 PM EDT [facility] Appearance, UA Clear Clear 12/22/2024 12:23 PM EDT [facility] pH, UA 5.5 5.0 - 8.0 12/22/2024 12:23 PM EDT [facility] Specific Pride, UA 1.035(H) 1.001 - 1.030 12/22/2024 12:23 PM EDT [facility] Glucose, UA >=1000 mg/dL (3+)(A) Negative 12/22/2024 12:23 PM EDT [facility] Ketones, UA Negative Negative 12/22/2024 12:23 PM EDT [facility] Bilirubin, UA Negative Negative 12/22/2024 12:23 PM EDT [facility] Blood, UA Negative Negative 12/22/2024 12:23 PM EDT [facility] Protein, UA Trace(A) Negative 12/22/2024 12:23 PM EDT [facility] Leuk Esterase, UA Negative Negative 12/22/2024 12:23 PM EDT [facility] Nitrite, UA Negative Negative 12/22/2024 12:23 PM EDT [facility] Urobilinogen, UA 1.0 E.U./dL 0.2 - 1.0 E.U./dL 12/22/2024 12:23 PM EDT [facility] Urine Urine specimen obtained by clean catch procedure / Unknown Collection / Unknown 12/22/2024 12:02 PM EDT 12/22/2024 12:18 PM EDT Narrative [facility] - 12/22/2024 12:23 PM EDT Urine microscopic not indicated. us Wesley Stuart MD URINE ORDERABLES Final Result [facility]
[address] [place] [address], * Roland Top (12/22/2024 11:51 AM EDT) Extra Tube Hold for add-ons. 12/22/2024 12:00 PM EDT [facility] Comment:Auto resulted. Blood Venipuncture / Unknown 12/22/2024 11:51 AM EDT 12/22/2024 12:00 PM EDT us Wesley Stuart MD LAB BLOOD ORDER ONLY Final Res ult [facility]
[address] [place] [address], [place] [phone] * Gold Top - SST (12/22/2024 11:51 AM EDT) Extra Tube Hold for add-ons. 12/22/2024 12:00 PM EDT [facility] Comment:Auto resulted. Blood Venipuncture / Unknown 12/22/2024 11:51 AM EDT 12/22/2024 12:00 PM EDT us Wesley Stuart MD LAB BLOOD ORDER ONLY Final Res ult Performing Organization Address [facility]/ZIP Co de Phone Number [facility]
[address] [place] [address], [place] [phone] * Green Top (Gel) (12/22/2024 11:51 AM EDT) Extra Tube Hold for add-ons. 12/22/2024 12:00 PM EDT [facility] Comment:Auto resulted. Blood Venipuncture / Unknown 12/22/2024 11:51 AM EDT 12/22/2024 12:00 PM EDT us Wesley Stuart MD LAB BLOOD ORDER ONLY Final Res ult Performing Organization Address City/[facility] Hospital/ZIP Co de Phone Number [facility]
[address] [place] [address], [place] [phone] * (ABNORMAL) CBC Auto Differential (12/22/2024 11:51 AM EDT) [facility] Signature WBC 8.86 3.40 - 10.80 10*3/mm3 12/22/2024 12:08 PM EDT [facility] RBC 4.65 3.77 - 5.28 10*6/mm3 12/22/2024 12:08 PM EDT [facility] Hemoglobin 14.7 12.0 - 15.9 g/dL 12/22/2024 12:08 PM EDT [facility] Hematocrit 45.0 34.0 - 46.6 % 12/22/2024 12:08 PM EDT [facility] MCV 96.8 79.0 - 97.0 fL 12/22/2024 12:08 PM EDT [facility] MCH 31.6 26.6 - 33.0 pg 12/22/2024 12:08 PM EDT [facility] MCHC 32.7 31.5 - 35.7 g/dL 12/22/2024 12:08 PM EDT [facility] RDW 12.4 12.3 - 15.4 % 12/22/2024 12:08 PM EDT [facility] RDW-SD 44.0 37.0 - 54.0 fl 12/22/2024 12:08 PM EDT [facility] MPV 9.4 6.0 - 12.0 fL 12/22/2024 12:08 PM EDT [facility] Platelets 199 140 - 450 10*3/mm3 12/22/2024 12:08 PM EDT [facility] Neutrophil % 69.4 42.7 - 76.0 % 12/22/2024 12:08 PM EDT [facility] Lymphocyte % 24.7 19.6 - 45.3 % 12/22/2024 12:08 PM EDT [facility] Monocyte % 4.5(L) 5.0 - 12.0 % 12/22/2024 12:08 PM EDT [facility] Eosinophil % 0.5 0.3 - 6.2 % 12/22/2024 12:08 PM EDT [facility] Basophil % 0.7 0.0 - 1.5 % 12/22/2024 12:08 PM EDT [facility] Immature Grans % 0.2 0.0 - 0.5 % 12/22/2024 12:08 PM EDT [facility] Neutrophils, Absolute 6.15 1.70 - 7.00 10*3/mm3 12/22/2024 12:08 PM EDT [facility] Lymphocytes, Absolute 2.19 0.70 - 3.10 10*3/mm3 12/22/2024 12:08 PM EDT [facility] Monocytes, Absolute 0.40 0.10 - 0.90 10*3/mm3 12/22/2024 12:08 PM EDT [facility] Eosinophils, Absolute 0.04 0.00 - 0.40 10*3/mm3 12/22/2024 12:08 PM EDT [facility] Basophils, Absolute 0.06 0.00 - 0.20 10*3/mm3 12/22/2024 12:08 PM EDT [facility] Immature Grans, Absolute 0.02 0.00 - 0.05 10*3/mm3 12/22/2024 12:08 PM EDT [facility] nRBC 0.0 0.0 - 0.2 /100 WBC 12/22/2024 12:08 PM EDT [facility] Blood Venipuncture / Unknown 12/22/2024 11:51 AM EDT 12/22/2024 12:00 PM EDT us Wesley Stuart MD LAB BLOOD ORDERABLES Final Res ult [facility]
[address] [place] [address], * Lavender Top (12/22/2024 11:51 AM EDT) Extra Tube hold for add-on 12/22/2024 12:15 PM EDT [facility] Comment:Auto resulted Blood Venipuncture / Unknown 12/22/2024 11:51 AM EDT 12/22/2024 12:00 PM EDT us Wesley Stuart MD LAB BLOOD ORDER ONLY Final Res ult Performing Organization Address City/[facility] Hospital/ZIP Co de Phone Number [facility]
[address] [place] [address], [place] [phone] * Lipase (12/22/2024 11:51 AM EDT) Lipase 38 13 - 60 U/L 12/22/2024 12:32 PM EDT [facility] Blood Venipuncture / Unknown 12/22/2024 11:51 AM EDT 12/22/2024 12:00 PM EDT us Wesley Stuart MD LAB BLOOD ORDERABLES Final Res ult Performing Organization Address [facility] de Phone Number [facility]
[address] [place] [address], * Lactic Acid, Plasma (12/22/2024 11:51 AM EDT) Lactate 0.8 0.5 - 2.0 mmol/L 12/22/2024 12:35 PM EDT [facility] Comment:Falsely depressed re sults may occur on samples drawn from patients receiving N-Acetylcysteine (NAC) or Metamizole. Blood Venipuncture / Unknown 12/22/2024 11:51 AM EDT 12/22/2024 12:00 PM EDT us Wesley Stuart MD LAB BLOOD ORDERABLES Final Res ult Performing Organization Address [facility] de Phone Number [facility]
[address] [place] [address], * (ABNORMAL) Comprehensive Metabolic Panel (12/22/2024 11:51 AM EDT) Glucose 148(H) 65 - 99 mg/dL 12/22/2024 12:32 PM EDT [facility] BUN 25.2(H) 8.0 - 23.0 mg/dL 12/22/2024 12:32 PM EDT [facility] Creatinine 1.07(H) 0.57 - 1.00 mg/dL 12/22/2024 12:32 PM EDT [facility] Sodium 138 136 - 145 mmol/L 12/22/2024 12:32 PM EDT [facility] Potassium 4.3 3.5 - 5.2 mmol/L 12/22/2024 12:32 PM EDT [facility] Comment:Slight hemolysis det ected by analyzer. Result may be falsely elevated. Chloride 103 98 - 107 mmol/L 12/22/2024 12:32 PM EDT [facility] CO2 24.0 22.0 - 29.0 mmol/L 12/22/2024 12:32 PM EDT [facility] Calcium 9.5 8.6 - 10.5 mg/dL 12/22/2024 12:32 PM EDT [facility] Total Protein 6.4 6.0 - 8.5 g/dL 12/22/2024 12:32 PM EDT [facility] Albumin 4.0 3.5 - 5.2 g/dL 12/22/2024 12:32 PM EDT [facility] ALT (SGPT) 17 1 - 33 U/L 12/22/2024 12:32 PM EDT [facility] AST (SGOT) 15 1 - 32 U/L 12/22/2024 12:32 PM EDT [facility] Alkaline Phosphatase 105 39 - 117 U/L 12/22/2024 12:32 PM EDT [facility] Total Bilirubin 0.2 0.0 - 1.2 mg/dL 12/22/2024 12:32 PM EDT [facility] Globulin 2.4 gm/dL 12/22/2024 12:32 PM EDT [facility] Comment:Calculated Result A/G Ratio 1.7 g/dL 12/22/2024 12:32 PM EDT [facility] BUN/Creatinine Ratio 23.6 7.0 - 25.0 12/22/2024 12:32 PM EDT [facility] Anion Gap 11.0 5.0 - 15.0 mmol/L 12/22/2024 12:32 PM EDT [facility] eGFR 59.2(L) >60.0 mL/min/1.7 3 12/22/2024 12:32 PM EDT [facility] Blood Venipuncture / Unknown 12/22/2024 11:51 AM EDT 12/22/2024 12:00 PM EDT [facility] - 12/22/2024 12:32 PM EDT GFR Categories in Chronic Kidney Disease (CKD) GFR Category GFR (mL/min/1.73) Interpretation G1 90 or greater Normal or high (1) G2 60-89 Mild decrease (1) G3a 45-59 Mild to moderate decrease G3b 30-44 Moderate to severe decrease G4 15-29 Severe decrease G5 14 or less Kidney failure (1)In the absence of evidence of kidney disease, neither GFR category G1 or G2 fulfill the criteria for CKD. eGFR calculation 2020 CKD-EPI creatinine equation, which does not include race as a factor us Wesley Stuart MD LAB BLOOD ORDERABLES Final Res ult [facility]
[address] [place] [address], * ECG 12 Lead Tachycardia (12/05/2024 11:15 PM EDT) QT Interval 314 ms BH ECG QTC Interval 440 ms ECG 12/05/2024 11:1 5 PM EDT 12/10/2024 3:01 AM EDT Narrative ECG - 12/10/2024 3:01 AM EDT Test Reason : Tachycardia Blood Pressure : */* mmHG Vent. Rate : 118 BPM Atrial Rate : 118 BPM P-R Int : 158 ms QRS Dur : 90 ms QT Int : 314 ms P-R-T Axes : 42 -19 60 degrees QTcB Int : 440 ms Sinus tachycardia Possible Left atrial enlargement Low voltage QRS Nonspecific ST abnormality Abnormal ECG When compared with ECG of 09-Jun-2023 04:20, Vent. rate has increased by 48 bpm Borderline criteria for Anterior infarct are now present Borderline criteria for Anterolateral infarct are now present Confirmed by Jayson Jaime ([id number]) on 12/10/2024 3:01:19 AM Referred By: robles Confirmed By: Jayson Jaime Procedure Note Jayson Jaime MD - 12/10/2024 Test Reason : Tachycardia Blood Pressure : */* mmHG Vent. Rate : 118 BPM Atrial Rate : 118 BPM P-R Int : 158 ms QRS Dur : 90 ms QT Int : 314 ms P-R-T Axes : 42 -19 60 degrees QTcB Int : 440 ms Sinus tachycardia Possible Left atrial enlargement Low voltage QRS Nonspecific ST abnormality Abnormal ECG When compared with ECG of 09-Jun-2023 04:20, Vent. rate has increased by 48 bpm Borderline criteria for Anterior infarct are now present Borderline criteria for Anterolateral infarct are now present Confirmed by Jayson Jaime ([id number]) on 12/10/2024 3:01:19 AM Referred By: robles Confirmed By: Jayson Jaime us Jayson Jaime MD ECG ORDERABLES Final Resu lt ECG * (ABNORMAL) Hemoglobin A1c (12/30/2023 11:38 AM EDT) Hemoglobin A1C 7.90(H) 4.80 - 5.60 % 12/30/2023 2:09 PM EDT [facility] Blood Venipuncture / Unknown 12/30/2023 11:38 AM EDT 12/30/2023 11:39 AM EDT [facility] - 12/30/2023 2:09 PM EDT Hemoglobin A1C Ranges: Increased Risk for Diabetes 5.7% to 6.4% Diabetes >= 6.5% Diabetic Goal < 7.0% Vasu Gutierres MD LAB BLOOD ORDERABLES F inal Result [facility]
[address] [place] [address], * (ABNORMAL) Lipid Panel (12/30/2023 11:38 AM EDT) Total Cholesterol 145 0 - 200 mg/dL 12/30/2023 7:13 PM EDT [facility] Triglycerides 86 0 - 150 mg/dL 12/30/2023 7:13 PM EDT [facility] HDL Cholesterol 62(H) 40 - 60 mg/dL 12/30/2023 7:13 PM EDT [facility] LDL Cholesterol 67 0 - 100 mg/dL 12/30/2023 7:13 PM EDT [facility] VLDL Cholesterol 16 5 - 40 mg/dL 12/30/2023 7:13 PM EDT [facility] LDL/HDL Ratio 1.06 12/30/2023 7:13 PM EDT [facility] Blood Venipuncture / Unknown 12/30/2023 11:38 AM EDT 12/30/2023 11:39 AM EDT [facility] - 12/30/2023 7:13 PM EDT Cholesterol Reference Ranges (U.S. Department of Health and Human Services ATP III Classifications) Desirable <200 mg/dL Borderline High 200-239 mg/dL High Risk >240 mg/dL Triglyceride Reference Ranges (U.S. Department of Health and Human Services ATP III Classifications) Normal <150 mg/dL Borderline High 150-199 mg/dL High 200-499 mg/dL Very High >500 mg/dL HDL Reference Ranges (U.S. Department of Health and Human Services ATP III Classifications) Low <40 mg/dl (major risk factor for CHD) High >60 mg/dl ('negative' risk factor for CHD) LDL Reference Ranges (U.S. Department of Health and Human Services ATP III Classifications) Optimal <100 mg/dL Near Optimal 100-129 mg/dL Borderline High 130-159 mg/dL High 160-189 mg/dL Very High >189 mg/dL us Vasu Gutierres MD LAB BLOOD ORDERABLES F inal Result [facility]
[address] [place] [address], [place] [phone] from Last 3 Months or Most Recently Relevant to Health Maintenance Insurance [facility] MEDICARE ADVANTAGE [employer] PPO Advance Directives * CPR (Attempt to Resuscitate) (Latest Code Status on File) Date Activated Date Inactivated Comments 08/25/2023 11:01 AM 09/05/2023 3:16 PM Question Answer Comments Code Status (Patient has no pulse and is not breathing): CPR (Attempt to Resuscitate) Medical Interventions (Patie nt has pulse or is breathing): Full Support Level Of Support Discussed With: Patient * No CPR (Do Not Attempt to Resuscitate) Date Activated Date Inactivated Comments 07/17/2023 5:58 PM 07/25/2023 5:07 PM Question Answer Comments Code Status (Patient has no pulse and is not breathing): No CPR (Do Not Attempt to Resuscitate) Medical Interventions (Patie nt has pulse or is breathing): Limited Support Medical Intervention Limits: NO intubation (DNI) * No CPR (Do Not Attempt to Resuscitate) Date Activated Date Inactivated Comments 06/09/2023 8:26 AM 06/10/2023 6:45 PM Question Answer Comments Code Status (Patient has no pulse and is not breathing): No CPR (Do Not Attempt to Resuscitate) Medical Interventions (Patie nt has pulse or is breathing): Limited Support Medical Intervention Limits: NO intubation (DNI) Level Of Support Discussed With: Patient * CPR (Attempt to Resuscitate) Date Activated Date Inactivated Comments 03/12/2023 10:39 AM 03/13/2023 6:36 PM Question Answer Comments Code Status (Patient has no pulse and is not breathing): CPR (Attempt to Resuscitate) Medical Interventions (Patie nt has pulse or is breathing): Full Support Care Teams An/Syq 13 Nav/C2 Operator Relationship Specialty Start Date End Date Vasu Gutierres MD [facility]0 [facility] [address] [facility] 2 [place] [address] PCP - General Family Medicine 03/05/23
[2025-03-03 14:51] VITALS: BP 149/96; PULSE 79; RESP 16; TEMP 36.6; O2SAT 96
[2025-03-03] MEDS: BUTORPHANOL TARTRATE 1 MG/ML VIAL (14:51)
[2025-03-03] MEDS: BUTORPHANOL TARTRATE 2 MG/ML VIAL (14:51)
[2025-03-03] MEDS: PROMETHAZINE HCL 25MG/ML 1ML VIAL 50 MG (14:52)
[2025-03-03 15:21] VITALS: BP 159/89; PULSE 74; RESP 14; TEMP 36.6; O2SAT 96
== END 2025-03-03 15:21 | disposition home or self-care (01) ==
LOC: INF 14:38
PROVIDERS: PCP Family Medicine; Visit Provider Family Medicine
DX: G43.C1 Periodic headache syndromes in child or adult, intractable (principal)
CPT/HCPCS: 96372; J0595; J2550

== ENCOUNTER 2025-03-13 18:53 | Emergency (ER) | payer MEDICARE, MEDICAID, SELFPAY ==
--- OUTSIDE RECORDS SUMMARY | 2024-08-27 04:00 | XMS_ITS | Continuity of Care Document ---
Author Organization [facility] Address [address] [place] [address] Phone Care Team Providers Care Certified Energy Manager Name Role Phone JAMAR ZAMORA MD Unavailable [...] Diagnoses Date Provider Providers Copied on Encounter [facility], [facility], [address] [place] [address], [id number], tel:[phone] [place] OFFICE IDDM (chief complaint)PC O (chief complaint)PV D (chief complaint)op tic disc cupping (chief complaint) Type 1 diabetes mellitus without complication sOther secondary cataract, bilateralVit reous degeneration , left eyeGlaucomat ous optic atrophy, right eye 5 SERA MESSER. [address] [place] [address], [id number], [place]. tel:[phone] Specialist : Dang García MD, [address] [facility] [address], [place], [address]. tel:[phone] OFFICE/OUTPA TIENT VISIT, EST [facility], [facility], [address] [place] [address], [id number], tel:[phone] MIDN[place] OFFICE PVD f/u OS (chief complaint) Vitreous degeneration , left eyeOther secondary cataract, bilateral 4 ZINA CHANDLER. [address] [place] [address], [id number], [place]. tel:[phone] [facility], [address] [place] [address], [id number], [place] tel:[phone] [place] [address] OFFICE EOV (chief complaint) Vitreous degeneration , left eye - 4 ZINA CHANDLER. [address] [place] [address], [id number], [place]. tel:[phone] [place] [address] [facility], [address] [place] [address], [id number], [place] [phone] [place] [address] OFFICE Diabetic Eye Exam (chief complaint)PC O (chief complaint)di sc cupping (chief complaint) Type 1 diabetes mellitus without complication sOther secondary cataract, bilateralGla ucomatous optic atrophy, right eye 3 ZAMORA JAMAR. [address] [place] [address], [id number], [place]. tel:[phone] Specialist : Dang García MD, [address] [facility] [address], [place], [address]. tel:[phone] [facility], [facility], [address] [place] [address], [id number], [place] tel:[phone] [place] [address] OFFICE Full Exam (chief complaint)Di abetes (chief complaint) Type 1 diabetes mellitus without complication sGlaucomatou s optic atrophy, right eyeOther secondary cataract, bilateral May- 2 ZAMORA JAMAR. [address] [place] [address], [id number], [place]. tel:[phone] [place] [address] [facility], [address] [place] [address], [id number], [place] tel:[phone] [place] [address] OFFICE Diabetic exam (chief complaint)Co vid screening negative (chief complaint) Type 1 diabetes mellitus without complication sOther secondary cataract, bilateralGla ucomatous optic atrophy, right eye Oct- 1 ZAMORA JAMAR. [address] [place] [address], [id number], [place]. tel:[phone] [facility], [address] [place] [address], [address] [place] [address], tel:[phone] [place] [address] OFFICE Diabetes Examination (chief complaint)PC Fibrosis (chief complaint) Type 1 diabetes mellitus without complication sOther secondary cataract, bilateral 0 ZAMORA JAMAR. [address] [place] [address], [id number], [place]. [phone] [place] [address] [facility], [facility], [address] [place] [address], [address] [place] [address], tel:[phone] [place] [address] OFFICE IDDM (chief complaint)PC Fibrosis (chief complaint) Other secondary cataract, bilateralTyp e 1 diabetes mellitus without complication s 9 ZAMORA JAMAR. [address] [place] [address], [address] [place] [address], [place]. tel:[phone] [place] [address] [facility], [facility], [address] [place] [address], [address] [place] [address], tel:[phone] [place] [address] OFFICE NIDDM (chief complaint)PC Fibrosis (chief complaint) Type 2 diabetes mellitus without complication sOther secondary cataract, bilateral 9-201 8 ZAMORA JAMAR. [address] [place] [address], [id number], [place]. tel:[phone] [place] [address] [facility], [facility], [address] [place] [address], [address] [place] [address], tel:[phone] [place] [address] OFFICE Diabetes Examination (chief complaint)sh ooting pain (chief complaint)h/ o amblyopia (chief complaint) Diabetes Mellitus Type 2, Uncomplicate dAfter-catar act, obscuring visionLens replaced by other meansKeratoc onjunctiviti s sicca, not specified as sjogren's Mar-0 6-201 5 ZAMORA JAMAR. [address] [place] [address], [id number], [place]. tel:[phone] Family History Family Member Type Diagnosis Age [...] party ID Authoriza tion(s) ANTH/Blue Cross Blue [facility] [id number] 2 Social History Type Description Quantity Date [...] the right eye and left eye. Dr. Dnag García follows patient for diabetes- last A1c [...] cataract, bilateral Return in [address] [facility] Eliseo Guo M.D. for Follow up. Related to Vitreous degeneration, left eye Impression/Plan Related to Vitre ous degeneration, left eye Return in 1 year ocni Zamora M.D. for Full Exam. Related to [...]
--- OUTSIDE RECORDS SUMMARY | 2025-03-03 09:45 | XMS_ITS ---
Author Organization [facility] Address [address] [place] [id number] Care Team Providers Care Rheumatologist Name Role Phone Samuel Gutierres Primary Care Provider [phone] Allergies Allergen (clinical drug ingredient) Drug/Non Drug [...] 139 Performing Lab: Notes/Report: Test performed by [facility] [address] [place] [address] , [address], [place] [address] Augustus Lee MD, Contract Management Specialist CLIA: [id number] Sodium 140 135-145 mmol/L Potassium 3.2 3.5-5.3 [...] Interpretation:Normal Performing Lab: Notes/Report: Test performed by [facility] [address] [place] [address] , [address], [place] [address] Augustus Lee MD, Contract Management Specialist CLIA: [id number] Magnesium 1.6 1.6-2.4 mg/dL P-TSH Reviewed date:03/07/2025 10:11:20 AM Interpretation:0.18 Performing Lab: Notes/Report: Test performed by [facility] [address] [place] [address] , [address], [place] [address] Augustus Lee MD, Contract Management Specialist CLIA: [id number] TSH 0.18 0.43-5.25 mU/L REASON FOR VISIT [...] Duration: 28 Active FreeStyle John 14 Day [place] - as directed Active Fluticasone Propionate 50 [...] W/U Status Risk Notes Problem Multinodular goiter (E04.2) Active confirmed Vital Signs Weight 118.4 lbs 03/03/2025 Blood pressure systolic 118 mm Hg 03/03/20 25 Blood pressure diastolic 60 mm Hg 025 Height 63.50 in 03/03/2025 BMI 20.64 kg/m2 03/03/2025 Encounters Encounter Location Date Provider Diagnosis [facility] [address] [facility] [address] [place], [place] [id number] 03/03/2025 R Josh Gutierres Intractable periodic headache [...] mg and Phenergan 50 mg IM at [facility] today. Continue with plan of [...] mg and Phenergan 50 mg IM at [facility] today. Next Appt Details Follow Up: via phone to repo rt test results, Reason: Progress Notes * PITTMANJESUS MANUEL ARAGONBROOKLYNB:1965 (60 yo F)Acc No.[id number]:03/03/2025 Progress Notes Patient: JACI HERNANDEZ Provider: Samuel Gutierres M.D. :1965 A ge:60 Y S ex:Female Date:03/03/2025 [facility] Subjective: * Chief Complaints: * 1 . Migraine. * HPI: N eurology: She presents with complaints of persistent migraine headache with nausea and mild photophobia for the past 4 days. She is scheduled for her next Vyepti injection in March. C onstitutional: Weight loss noted. She admits she is having difficulty caring for herself since leaving the assisted living facility in [place]. She is not eating properly. She does seem to be taking her medications as directed. She has difficulty with many activities of daily living. She is having a phone consultation with her warehouse associate this afternoon to help with possible [...] Dr. Barahona 03/25/2017, ORIF R ankle fx/ [facility] 06/2023, Explant of screws from right ankle/ [facility] 07/2023. * Family History: F ather: [...] needed , Taking FreeStyle John 14 Day [place] - Device as directed , Taking FreeStyle [...] G 2211 Complex e/[place], [address] CBC WITH AUTO DIFF, 40324 GLYCATED HEMOGLOBIN TEST, Modifiers: QW , 3044F HG A1C LEVEL LT 7.0%, G8950 PREHTN/HTN BP DOC INDCD F/U DOC, G8752 MOST RECENT SYSTOLIC BP < 140MM HG, G8754 MOST RECENT DIASTOLIC BP < 90MM HG * Follow Up: v ia phone to report test results * Images: Billing Information: * Visit Code: 30977 Office Visit, Est Pt., Level 3. * Procedure Codes: G2211 Complex e/[place]. [address] CBC WITH AUTO DIFF. 55968 GLYCATED HEMOGLOBIN TEST. Modifiers: QW 3044F HG A1C LEVEL LT 7.0%. G8950 PREHTN/HTN BP DOC INDCD F/U DOC. G8752 MOST RECENT SYSTOLIC BP < 140MM HG. G8754 MOST RECENT DIASTOLIC BP < 90MM HG. * Electronic signature of Samuel Gutierres MD on 03/13/2025 at 06:59 PM EDT Sign off status: Pending * Provider: Samuel Gutierres M.D. Date: 0 03/03/2025 Generated for Printi ng/Fatommyg/eTransmitting on: 03/13/2025 06:59 PM EDT History and Physical Notes * [...]
--- OUTSIDE RECORDS SUMMARY | 2025-03-07 06:03 | XMS_ITS ---
Author Organization [facility] Address [address] [place] [address] [place] [id number] Care Team Providers Care Operations Officer Trust Department Name Role Phone Samuel Gutierres Primary Care Provider [phone] REASON FOR VISIT Test Results Problems Problem Type SNOMED Code ICD Code Onset Dates Problem Status W/U Status Risk Notes Problem Hyperthyroidism (62929803) Hyperthyroidism (E05.90) Active confirmed Encounters Encounter Location Date Provider Diagnosis [place] [facility] [address] [place] [id number] 03/07/2025 Samuel Gutierres Hyperthyroidism E05. 90 and [...] Notes * WIL PITTMANB:1965 (60 yo F)Acc No.[id number]:03/07/2025 Patient: JACI HERNANDEZ :1965 A ge:60 Y S ex:Female Address:[address] [place] [address] Subjective: * Chief Complaints: * T est [...] Codes: * true * Date: Generated for Smithi nawaf/Mendy/eTransmitting on: 0 03/13/2025 07:00 PM EDT
--- OUTSIDE RECORDS SUMMARY | 2025-03-08 10:30 | XMS_ITS ---
Author Organization [facility] Address [facility] [address] [place] [phone] Care Team Providers Care Train Operations Manager Name Role Phone Samuel Gutierres Primary Care [...] itching Drug Allergy Active REASON FOR VISIT trim toenails, needs a H & P for residential admission Medications Medication SIG (Take, Route, Frequency, Duration) Notes Start Date End Date Status Lisinopril 40 MG 1 tablet Orally Once a day; Duration: 30 days Active Ingrezza 80 MG 1 cap(s) orally At B ed Time; Duration: 30 days Active Omeprazole 40 MG 1 cap(s) Orally once daily; Duration: 30 days Active NIFEdipine ER 30 MG 1 tab(s) Orally Once a day; Duration: 30 days Active Acetaminophen 325 mg TAKE TWO TABLETS BY MOUTH EVERY 6 HOURS NEEDED; Duration: 13 Active Ibuprofen 800 MG 1 tablet with food o r milk as needed Orally every 8 hrs prn 08/05/2024 Active Promethazine HCl 25 MG 1 tab(s) Orally t wo times a day as needed Active Fluticasone Propionate 50 MCG/ACT 2 spray in each nostril Nasally once a day as needed 10/07/2024 Active FreeStyle John 2 Sensor - USE DIRECTED (CHANGE EVERY 14 D AYS.; Duration: 28 Active FreeStyle John 14 Day [place] - as directed Active Lidocaine 4 % 1 patch Externally O nce a day prn 10/07/2023 Active Tums 500 MG 2 tablet Orally four times a day as needed 05/06/2023 Active Glucerna Shake - 240 ml Orally once daily 04/22/2024 Active BD Pen Needle Micro U/F 32G X 6 MM USE DIRECTED TWICE DAILY.; Duration: 50 Active Vistaril 25 MG 1 cap(s) orally thre e times a day as needed; Duration: 30 days Active GLUCOMETER DIRECTED TEST QD 07/09/2021 Active Gabapentin 800 MG 1 tab(s) orally 3 ti mes a day 02/04/2025 Active Vyepti 100 MG/ML as directed Intravenous Active Glucagon Emergency 1 MG as directed Injection 05/21 Active Farxiga 10 MG 1 tab(s) Orally once a day Active Accu-Chek Softclix Lancets - once a day; Duration: 100 days 02/14/2025 Active Accu-Chek Guide Test - as directed In Vi tro daily; Duration: 100 days 02/14/2025 Active Zithromax Z-Chuck 250 MG as directed Orally 01/26/20 Not-Taking Alendronate Sodium 70 mg Take 1 tablet o nce weekly 30 minutes before the first food, beverage or medicine of the day with plain water; Duration: 28 days Not-Taking Lantus SoloStar 100 UNIT/ML 20 units Subcutaneous once daily 08/12/2024 Active Accu-Chek Guide w/Device as directed 02/14/2025 Active Qulipta 60 MG 1 tab(s) orally At B ed Time Active Melatonin 5 MG 1 tab Orally At Bed Time; Duration: 30 days 10/07/2023 Active Diphenoxylate-Atropine 2.5-0.025 MG 1 tab(s) Orally q6h prn diarrhea 01/28/2025 Active Desvenlafaxine ER 100 MG 1 tab(s) orally At Bed Time Active Cetirizine HCl 10 MG 1 tablet Orally onc e daily Active Atorvastatin Calcium 80 MG 1 tab(s) orally once a day in the evening; Duration: 30 days Active Aspirin 325 MG 1 tab(s) orally once a day; Duration: 30 days Active traZODone HCl 150 MG 1 tab(s) orally onc e a day (at bedtime) Active Keppra 500 MG 1 tablet Orally Two times a day Active tiZANidine HCl 4 MG 1 tablet Orally Thre e times a day Active Problems Problem Type SNOMED Code ICD Code Onset Dates Problem Status W/U Status Risk Notes Problem Acquired hammer toe of left foot (1921850545226 103) Hammer toe of left foot (M20.42) Active confirmed Problem Acquired hammer toe of right foot (7202827907366 105) Hammer toe of right foot (M20.41) Active confirmed Problem Adult failure to thrive syndrome (599392279) Adult failure to thrive (R62.7) Active confirmed Vital Signs Weight 115.8 lbs 03/08/2025 Blood pressure systolic 112 mm Hg 03/08/20 25 Blood pressure diastolic 74 mm Hg 025 Heart Rate 105 /min 03/08/2025 Height 63.50 in 03/08/2025 BMI 20.19 kg/m2 03/08/2025 Encounters Encounter Location Date Provider Diagnosis [facility] [address] [id number] 03/08/2025 Samuel Gutierres Type 2 diabetes sherlyn itus with diabetic polyneuropathy E11.42 ; Hammer toe of left foot M20.42 ; Hammer toe of right foot M20.41 ; Onychodystrophy L60.3 ; Hyperthyroidism E05.90 ; Weight loss R63.4 and Adult failure to thrive R62.7 Assessments Encounter Date Diagnosis (ICD Code) Assessment Notes Treatment Notes Treatment Clinical Notes Section Notes 03/08/2025 Type 2 diabetes mellitus with diabetic polyneuropathy (ICD-10 - E11.42) 03/08/2025 Hammer toe of left foot (ICD-10 - M20.42) 03/08/2025 Hammer toe of right foot (ICD-10 - M20.41) 03/08/2025 Onychodystrophy (ICD-10 - L60.3) Both great toenails are debrided with the Dremel tool. Bilateral toenails 2 - 5 are trimmed with clippers. 03/08/2025 Hyperthyroidism (ICD-10 - E05.90) Proceed with additional labs and thyroid scan as ordered. 03/08/2025 Weight loss (ICD-10 - R63.4) 03/08/2025 Adult failure to thrive (ICD-10 - R62.7) Concur with need for long-term care placement Plan Of Treatment Medication Medication Name Sig Start Date Stop Date Notes Gabapentin 800 MG 1 tab(s) orally 3 times a day 02/04/2025 Farxiga 10 MG 1 tab(s) Orally once a day Lantus SoloStar 100 UNIT/ML 20 units Sub cutaneous once daily 08/12/2024 Treatment Notes Assessment Notes Onychodystrophy Both great toenails are debrided with the Dremel tool. Bilateral toenails 2 - 5 are trimmed with clippers. Hyperthyroidism Proceed with additio nal labs and thyroid scan as ordered. Adult failure to thrive Concur with need for long-term care placement Next Appt Details Follow Up: after tests, Reas on: Progress Notes * PITTMAN, LAURBROOKLYNB:1965 (60 yo F)Acc No.[id number]:03/08/2025 Extended Visit Patient: JACI HERNANDEZ Provider: Samuel Gutierres M.D. :1965 A ge:60 Y S ex:Female Date:03/08/2025 Address:[address] [facility] [id number] Subjective: * Chief Complaints: * 1 . trim toenails, needs a H & P for residential admission. * HPI: H PI: She comes in today accompanied by her state relationship management lead who is trying to assist her with long-term care placement. Since being [place] from [facility] [place], she has not done well from a medical standpoint. She has difficulty with ADLs. She has not been eating right and has lost weight. She would benefit from long-term care placement although does not currently have a skilled service need unless her insulin injections would qualify her. E ndocrinology: Further to her last phone encounter, I reviewed with her the results of her blood work where she was noted to have a suppressed TSH level with recommendation for additional blood work and thyroid scan. She is agreeable and will proceed. D ermatology: She is requesting to have her toenails trimmed today as she is unable to do this on her own. * ROS: D ERMATOLOGY: no R jennifer. [...] Tobacco addiction, Tardive dyskinesia, Multinodular goiter by ultrasound, Partial seizures. * Surgical History: R T breast lumpectomy 1998, DREZ procedure 1999, tubal ligation 2000, teeth extracted 03/20/2009, Meningoma removed from left side of brain 12/08/2013, Repeat DREZ procedure - Dr. Barahona 03/25/2017, ORIF R ankle fx/ [facility] 06/2023, Explant of screws from right ankle/ [facility] 07/2023. * Family History: F ather: [...] needed , Taking FreeStyle John 14 Day [place] - Device as directed , Taking FreeStyle [...] Side Effects. Objective: * Vitals: W t: 115.8, Temp: 98.2, BP: 112/74, HR: 105, Nurse: ISAAC, Ht: 63.50, BMI:20.19. * Examination: G eneral Examination: General Appearance: A ffect seems better today. Further weight loss noted. H eart: R SR. L ungs: C oarse breath sounds which returned diminished. No rales or wheezes.. N eurologic Exam: F acial grimacing related to tardive dyskinesia.. S kin: B ilateral hammertoes. Thickened and dystrophic nails on both great toes. No foot ulcers. Assessment: * Assessment: 1. T ype 2 diabetes mellitus with diabetic polyneuropathy - E11.42 (Primary) 2 . H ammer toe of left foot - M20.42 3 . H ammer toe of right foot - M20.41? 4. O nychodystrophy - L60.3 5 . H yperthyroidism - E05.90 6. W eight loss - R63.4 7 . A dult failure to thrive - R62.7? Plan: * Treatment: 2. O nychodystrophy Notes: Both great toenails are debrided with the Dremel tool. Bilateral toenails 2 - 5 are trimmed with clippers. 3. H yperthyroidism Notes: Proceed with additional labs and thyroid scan as ordered. 4. A dult failure to thrive Notes: Concur with need for long-term care placement * Procedure Codes: G 0127 TRIMMING DYSTROPHIC NAILS ANY # * Follow Up: a fter tests * Images: Billing Information: * Visit Code: 34918 Office Visit, Est Pt., Level 3. * Procedure Codes: G0127 TRIMMING DYSTROPHIC NAILS ANY #. * Electronic signature of Samuel Gutierres MD on 03/13/2025 at 07:00 PM EDT Sign off status: Pending * Provider: Samuel Gutierres M.D. Date: 03/08/2025 Generated for Leanne mccracken/Mendy/Suki on: 03/13/2025 07:00 PM EDT History and Physical Notes * HPI (History of Present Illness) Category Sub-Category Detail Notes Category Not es Dermatology She is [place] mccracken to have her toenails trimmed today as she is unable to do this on her own. Endocrinology Further to her last phone encounter, I reviewed with her the results of her blood work where she was noted to have a suppressed TSH level with recommendation for additional blood work and thyroid scan. She is agreeable and will proceed. HPI She comes in to day accompanied by her state relationship management lead who is trying to assist her with long-term care placement. Since being discharged from [facility] assisted [facility] [place], she has not done well from a medical standpoint. She has difficulty with ADLs. She has not been eating right and has lost weight. She would benefit from long-term care placement although does not currently have a skilled service need unless her insulin injections would qualify her. Examination Category Sub-Category Detail Notes Category Not es General Examination Heart: RSR Lungs: Coarse breath sounds which returned diminished. No rales or wheezes. General Appearance: Affect seems better today. Further weight loss noted Skin: Bilateral hammertoes . Thickened and dystrophic nails on both great toes. No foot ulcers Neurologic Exam: Facial grimacing rel ated to tardive dyskinesia.
[2025-03-13] VITALS (12 sets, daily range): BP systolic 136–185; BP diastolic 81–110; PULSE 65–92; RESP 13–20; TEMP 36.6; O2SAT 77–99; BMI 21.6
--- OUTSIDE RECORDS SUMMARY | 2025-03-13 19:00 | XMS_ITS | Clinical Summary ---
Author Organization [facility] Address [address] [place] [address] Phone Care Team Providers Care Psychologist Industrial Organizational Name Role Phone Gilmar COFFEY, Luigi Huitron [...] right tibia, subsequent encounter Cellulitis, foot, right 596949470 (SNOMED CT) 09/08 Active 09/08 Jaylene Mays Cellulitis of lower limb Infection, local skin/subcuta neous tissue 610775222 (SNOMED CT) 09/08 Active 09/08 Jaylene Davon Localized infection of skin AND/OR subcutaneous tissue CKD III(document a or b) 830062544 (SNOMED CT) 09/08 Active 09/08 Jaylene Davon Chronic kidney disease stage 3A Acute renal failure with tubular necrosis 299556952830 101 (SNOMED CT) 09/08 Active 09/08 Jaylene Davon Acute renal failure due to tubular necrosis Elevation of levels of liver transaminase levels 679039925 (SNOMED CT) 09/08 Active 09/08 Jaylene Davon Elevated level of transaminase and lactic acid dehydrogenase Alkaline phosphatase, elevated 869878275 (SNOMED CT) 09/08 Active 09/08 Jaylene Mays Alkaline phosphatase above reference range Anemia due to acute blood loss 638136956 ([facility] CT) 09/08 Active 09/08 Jaylene Mays Acute posthemorrhagic anemia Anemia in CKD D63.1 (ICD-10-CM) 09/08 Active 09/08 Jaylene Mays Anemia in chronic kidney disease DM Type II E11.9 (ICD-10-CM) 09/08 Active 09/08 Jaylene Mays Type 2 diabetes mellitus without complications Benign Essential Hypertension 01333060 ([facility]) 09/08 Active 09/08 Jaylene Mays Benign hypertension Medications Medication Instructions Start Date Stop Date Generic Name [facility] Provider [facility]treonam 2G IV [id number] [place] 09/15 aztreonam recon binta [facility] RN Cubicin RF (daptomycin) recon binta Cubicin 650mg IV [id number] [place] 09/15 daptomycin [facility] RN NIFEDIPINE ER 30 MG [id number] Take 1 tablet by mouth once a day nifedipine 79043558092 Janay Manrique LISINOPRIL 40 MG TABS Take 1 tablet by mouth once a day lisinopril 32540484935 Janay Manrique QULIPTA 60 MG TABS Take 1 tablet by mouth atogepant 59141591638 Janay Manrique ACETAMINOPHEN 500 MG TABS Take 1 tablet by mouth every six hours as needed acetaminophen 39984689747 Janay Manrique insulin detemir (LEVEMIR) 100 UNIT/ML injection Inject 5 unit subcutaneously every morning as directed LEVEMIR Janay Manrique ACETAMINOPHEN 325 MG TABS Take 2 tablet by mouth every six hours as needed acetaminophen 27652942414 Janay Manrique HYDROXYZINE PAMOATE 25 MG CAPS Take 1 capsule by mouth three times a day as needed hydroxyzine pamoate 19590398999 Janay Manrique LEVETIRACETAM 500 MG TABS Take 1 tablet by mouth every twelve hours levetiracetam 23002034978 Janay Manrique ASPIRIN 325 MG TABS Take 1 tablet by mouth once a day aspirin 08239891672 Janay Manrique PEG 3350 17 GM PACK Take 17 gram by mouth once a day polyethylene glycol 3350 33536445196 Janay Manrique CYCLOBENZAPRINE HCL 5 MG TABS Take 1 tablet by mouth three times a day as needed cyclobenzaprine 49029856155 Janay Manrique ENOXAPARIN SODIUM 40 MG/0.4ML SOSY Inject 0.4 ml subcutaneously once a day as directed 11/02 enoxaparin 27077612615 Janay Manrique ATORVASTATIN CALCIUM 80 MG TABS Take 1 tablet by mouth every night atorvastatin 39296386642 Janay Manrique PROCHLORPERAZINE EDISYLATE 10 MG/2ML SOLN 2 ml every eight hours as needed prochlorperazine edisylate 82134656613 Janay Manrique INSULIN LISPRO 100 UNIT/ML SOLN Inject 2-7 unit subcutaneously four times a day as directed insulin lispro 72642543214 Janay Manrique SENNOSIDES-DOCUSAT E SODIUM 8.6-50 MG TABS Take 2 tablet by mouth twice a day as needed sennosides-docusa te sodium 01157761985 Janay Manrique PROMETHAZINE HCL 25 MG TABS Take 1 tablet by mouth every six hours as needed promethazine 85807580755 Janay Manrique Valbenazine Tosylate 80 MG capsule Take 1 capsule by mouth once a day Valbenazine Tosylate 80 MG capsule Janay Manrique TRAZODONE HCL 150 MG TABS Take 3 tablet by mouth every night trazodone 94321751698 Janay Manrique DOCUSATE SODIUM 100 MG CAPS Take 1 capsule by mouth twice a day 09/18 docusate sodium 44332808054 Janay Manrique OMEPRAZOLE 40 MG CPDR Take 1 capsule by mouth once a day omeprazole 95423694791 Janay Burton CETIRIZINE HCL 10 MG TABS Take 1 tablet by mouth once a day cetirizine 28491682492 Janay Manrique MELATONIN 5 MG TABS Take 1 tablet by mouth every night as needed melatonin 35771410399 Halcomfort Burton LIDOCAINE PAIN RELIEF MAX ST 4 % PTCH Place 1 patch once a day as directed lidocaine 03841576802 Janay Manrique DESVENLAFAXINE SUCCINATE ER 100 MG [id number] Take 2 tablet by mouth once a day desvenlafaxine succinate 27859254520 Janay Manrique DOXYCYCLINE HYCLATE 100 MG CAPS Take 1 capsule by mouth twice a day 09/28 doxycycline hyclate 88162670737 Janay Burton ALENDRONATE SODIUM 70 MG TABS Take 1 tablet by mouth once a week alendronate 58012201003 Janay Manrique Cubicin RF (daptomycin) recon soln Cubicin 650mg IV [id number] 09/15 daptomycin [facility] RN aztreonam recon solmeseret Aztreonam 2G IV [id number] 09/15 aztreonam recon soln [facility] RN Valbenazine Tosylate 80 MG capsule Take 1 capsule by mouth Daily. 09/15 Valbenazine Tosylate 80 MG capsule QIE qieuser TRAZODONE HCL 150 MG TABS Take 3 tablets by mouth Every Night. 09/15 trazodone 55671481586 QIE qieuser SENNOSIDES-DOCUSAT E SODIUM 8.6-50 MG TABS Take 2 tablets by mouth 2 (Two) Times a Day As Needed for Constipation. sennosides-docusa te sodium 60923517563 QIE qieuser PROMETHAZINE HCL 25 MG TABS Take 1 tablet by mouth Every 6 (Six) Hours As Needed for Nausea or Vomiting. 09/15 promethazine 06744553774 QIE qieuser PROCHLORPERAZINE EDISYLATE 10 MG/2ML SOLN Infuse 2 mL into a venous catheter Every 8 (Eight) Hours As Needed (headache/migrai ne (give with iv benadryl)). 09/15 prochlorperazine edisylate 73483242723 QIE qieuser PEG 3350 17 GM PACK Take 17 g by mouth Daily. 09/15 polyethylene glycol 3350 46061762413 QIE qieuser ONETOUCH ULTRA STRP null blood sugar diagnostic 43260687025 QIE qieuser OMEPRAZOLE 40 MG CPDR Take 1 capsule by mouth Daily. 09/15 omeprazole 51614652596 QIE qieuser NIFEDIPINE ER 30 MG [id number] Take 1 tablet by mouth Daily. 09/15 nifedipine 65367753134 QIE qieuser NICOTINE STEP 1 21 MG/24HR PT24 null nicotine 53761918067 QIE qieuser MELATONIN 5 MG TABS Take 1 tablet by mouth At Night As Needed (insomnia). 09/15 melatonin 43361416294 QIE qieuser LISINOPRIL 40 MG TABS Take 1 tablet by mouth Daily. 09/15 lisinopril 47321023558 QIE qieuser LIDOCAINE PAIN RELIEF MAX ST 4 % PTCH Place 1 patch on the skin as directed by provider Daily. Remove & Discard patch within 12 hours or as directed by 09/15 lidocaine 94863816310 QIE qieuser LEVETIRACETAM 500 MG TABS Take 1 tablet by mouth Every 12 (Twelve) Hours. 09/15 levetiracetam 53615552719 QIE qieuser ONETOUCH DELICA PLUS [id number] null lancets 64621822687 QIE qieuser INSULIN LISPRO 100 UNIT/ML SOLN Inject 2-7 Units under the skin into the appropriate area as directed 4 (Four) Times a Day Before Meals & at Bedtime. 09/15 insulin lispro 00184522037 QIE qieuser insulin detemir (LEVEMIR) 100 UNIT/ML injection Inject 5 Units under the skin into the appropriate area as directed Every Morning. 09/15 LEVEMIR QIE qieuser HYDROXYZINE PAMOATE 25 MG CAPS Take 1 capsule by mouth 3 (Three) Times a Day As Needed for Itching. 01/18 hydroxyzine pamoate 45203806213 QIE qieuser GABAPENTIN 400 MG CAPS Take 2 capsules by mouth Every 8 (Eight) Hours for 4 days. 09/08 gabapentin 95812045047 QIE qieuser ENOXAPARIN SODIUM 40 MG/0.4ML SOSY Inject 0.4 mL under the skin into the appropriate area as directed Daily for 60 days. 11/02 enoxaparin 90312831275 QIE qieuser DOXYCYCLINE HYCLATE 100 MG CAPS Take 1 capsule by mouth 2 (Two) Times a Day for 14 days. 09/28 doxycycline hyclate 06576238749 QIE qieuser DOCUSATE SODIUM 100 MG CAPS Take 1 capsule by mouth 2 (Two) Times a Day for 15 days. 09/18 docusate sodium 77552783143 QIE qieuser DESVENLAFAXINE SUCCINATE ER 100 MG [id number] Take 2 tablets by mouth Daily. 09/15 desvenlafaxine succinate 59363235940 QIE qieuser CYCLOBENZAPRINE HCL 5 MG TABS Take 1 tablet by mouth 3 (Three) Times a Day As Needed for Muscle Spasms. 01/18 cyclobenzaprine 84497341361 QIE qieuser CETIRIZINE HCL 10 MG TABS Take 1 tablet by mouth Daily. 09/15 cetirizine 72544309251 QIE qieuser ANTACID CALCIUM 500 MG CHEW null calcium carbonate 59966303885 QIE qieuser BD PEN NEEDLE MICRO ULTRAFINE 32G X 6 MM null pen needle, diabetic 80733675917 QIE qieuser ATORVASTATIN CALCIUM 80 MG TABS Take 1 tablet by mouth Every Night. 09/15 atorvastatin 62109643878 QIE qieuser QULIPTA 60 MG TABS Take 1 tablet by mouth. 09/15 atogepant 43818797084 QIE qieuser ASPIRIN 325 MG TABS Take 1 tablet by mouth Daily. 09/15 aspirin 14723133009 QIE qieuser ALENDRONATE SODIUM 70 MG TABS Take 1 tablet by mouth Every 7 (Seven) Days. 09/15 alendronate 88058941249 QIE qieuser ACETAMINOPHEN 500 MG TABS Take 1 tablet by mouth Every 6 (Six) Hours As Needed for Mild Pain. 09/15 acetaminophen 12805432987 QIE qieuser ACETAMINOPHEN 325 MG TABS Take 2 tablets by mouth Every 6 (Six) Hours As Needed for Mild Pain. 09/15 acetaminophen 77603582788 QIE qieuser Medications Administered No information available. [...] Procedures Code Procedure Name Date Entry Date T3568j,[id number] CBC with Differential 2023 CPT-27355 C- reactive protein CPT-sl STAT [facility] P0491v,[id number] CBC with Differential 2023 CPT-26067 C- reactive protein G547150, [id number] CPK CPT-60679 Sedimentation Rate (ESR) 202 10/20/22 CPT-79061 CMP Vital Signs Date Name Value Unit [...]
--- OUTSIDE RECORDS SUMMARY | 2025-03-13 19:00 | XMS_ITS | Encounter Summary ---
Author Organization [facility] Address [address] [place] [address] Care Team Providers Care Microfiche Camera Operator Name Role Phone Vasu Gutierres MD Primary Care Provider +1- [phone] Encounter Details Date Type Department Care Team (Late st Contact Info) Description 02/23/2025 Telephone [facility] [address] [facility] [address] [place] [address] Nilda Love APRN [address] [place] [address] Social History Tobacco Use Types Packs/Day Years [...] Care Team (Late st Contact Info) Description 04/04/2025 10:40 AM EDT Office Visit [place] [facility] [address] [place] [address] Sweetie Hewitt, MECHE [address] [place] [address] 06/01/2025 11:00 AM EST Appointment [facility] [address] [place] [address] documented as of this encounter Visit Diagnoses Not on filedocumented in this encounter Additional Health Concerns Assessment Noted Time A fall risk assessment has been complete d for the patient 12/02/2024 10:04 AM EDT A Body Mass Index follow-up plan has been documented for the patient 12/02/2024 10:09 AM EDT documented as of this encounter Care Teams Microfiche Camera Operator Relationship Specialty Start Date End Date Vasu Gutierres MD [address] [place] [address] PCP - General 05/19/24 documented as of this encounter
--- OUTSIDE RECORDS SUMMARY | 2025-03-13 19:00 | XMS_ITS | Encounter Summary ---
Author Organization Healthcare Address [address] [place] [address] Care Team Providers Care Occupational Ther Name Role Phone Vasu Gutierres MD Primary Care Provider +1- [phone] Reason for Visit * Reason Onset Date Comments HCN - Patient Message 02/10/2025 Reschedule Encounter Details Date Type Department Care Team (Late st Contact Info) Description 02/10/2025 Telephone [place] [facility] [address] [place] [address] Sweetie Hewitt, PA [address] [place] [address] HCN - Patient Message (Reschedule [...] for Call: Patient is calling back to Chart[employer] appt. Best contact number and optimal time of day to reach caller: [phone] anytime Note: Please do not reply to [...] Reason for Call: Patient calling to r/s CR2ox appt Best contact number and optimal time of day to reach caller: [phone] or [phone] Note: Please do not reply to this message. Follow-up communication and further actions as a result of this message need to be communicated with the patient directly, if the patient is not active onMyChart. If the patient is active on MyChart, they will receive notification of the communication/outcome via [employer]. documented in this encounter Plan of Treatment Upcoming Encounters Date Type Department Care Team (Late st Contact Info) Description 04/04/2025 10:40 AM EDT Office Visit [place] [facility] [address] [place] [address] Sweetie Hewitt, MECHE [address] [place] [address] 06/01/2025 11:00 AM EST Appointment [facility] [address] [place] [address] documented as of this encounter Visit Diagnoses Not on filedocumented in this encounter Additional Health Concerns Assessment Noted Time A fall risk assessment has been complete d for the patient 12/02/2024 10:04 AM EDT A Body Mass Index follow-up plan has been documented for the patient 12/02/2024 10:09 AM EDT documented as of this encounter Care Teams Occupational Ther Relationship Specialty Start Date End Date Vasu Gutierres MD [address] [place], [place] [address] PCP - General 05/19/24 documented as of this encounter
--- OUTSIDE RECORDS SUMMARY | 2025-03-13 19:01 | XMS_ITS | Encounter Summary ---
Author Organization Healthcare Address [address] [place] [address] Care Team Providers Care Flooring Salesperson Name Role Phone Vasu Gutierres MD Primary Care Provider +1- [phone] Encounter Details Date Type Department Care Team (Late st Contact Info) Description 12/14/2024 Telephone [place] [facility] [address] [place] [address] Sweetie Hewitt, PA [address] [place] [address] Social History Tobacco Use Types [...] optimal time of day to reach caller: [phone] Note: Please do not reply to this [...] Description 04/04/2025 10:40 AM EDT Office Visit [place] [facility] [address] [place] [address] Sweetie Hewitt, PA [address] [place] [address] 06/01/2025 11:00 AM EST Appointment [facility] [address] [place] [address] documented as of this encounter Visit Diagnoses Not on filedocumented in this encounter Additional Health Concerns Assessment Noted Time A fall risk assessment has been complete d for the patient 12/02/2024 10:04 AM EDT A Body Mass Index follow-up plan has been documented for the patient 12/02/2024 10:09 AM EDT documented as of this encounter Care Teams Flooring Salesperson Relationship Specialty Start Date End Date Vasu Gutierres MD [address] [place] [address] PCP - General 05/19/24 documented as of this encounter
--- OUTSIDE RECORDS SUMMARY | 2025-03-13 19:01 | XMS_ITS | Encounter Summary ---
Author Organization [facility] Address [address] [place] [address] Care Team Providers Care Certified Medical Assistant Name Role Phone Vasu Gutierres MD Primary Care Provider +1- [phone] Encounter Details Date Type Department Care Team (Late st Contact Info) Description 03/10/2025 Telephone [facility] [address] [facility] [address] [place] [address] Sophie Gentile APRN [address] [address] Social History Tobacco Use Types Packs/Day Years [...] encounter Miscellaneous Notes * Telephone Encounter - Sophie Gentile APRN - 03/10/2025 11:31 AM EDT [facility] Pre-Infusion Screening Citlali Maravilla has an appointment for Vyepti infusion on 03/11/25. WAX POURER called patient to complete pre-infusion screening questions. Unable to speak with patient. Left voicemail to remind patient of appt date, time, and location. Duration of phone call: 1 minute Sophie Gentile APRN [facility] documented in this encounter Plan of Treatment Upcoming Encounters Date Type Department Care Team (Late st Contact Info) Description 04/04/2025 10:40 AM EDT Office Visit [place] [facility] [address], [address] [place] [address] Sweetie Hewitt PA [address] [place] [address] 06/01/2025 11:00 AM EST Appointment [facility] [address] [place] [address] documented as of this encounter Visit Diagnoses Not on filedocumented in this encounter Additional Health Concerns Assessment Noted Time A fall risk assessment has been complete d for the patient 12/02/2024 10:04 AM EDT A Body Mass Index follow-up plan has been documented for the patient 12/02/2024 10:09 AM EDT documented as of this encounter Care Teams Certified Medical Assistant Relationship Specialty Start Date End Date Vasu Gutierres MD [address] [place] [address] PCP - General 05/19/24 documented as of this encounter
--- OUTSIDE RECORDS SUMMARY | 2025-03-13 19:01 | XMS_ITS ---
Author Organization [facility] Care Team Providers Care Bread Jockey Name Role Phone Vasu Gutierres Unavailable Unavaila ble Allergies and adverse reactions Code CodeSystem Substance Reaction Severity StartDate Concern Status viibyrd Unknown 05/15/2017 active Toradol Unknown 05/15/[address] Sulfa Antibiotics Unknown 05/15/2017 active Seroquel Unknown 05/15/2017 active Saccharin Unknown 05/15/2017 active Relpax Unknown 05/15/2017 active Reglan Unknown 05/15/2017 active 7984 RXNORM Penicillin Skin reaction - finding (code- 534927067, SNOMED CT) Mild 05/15/2017 active Glacier Unknown 05/15/2017 active 6813 RXNORM Methadone Unknown 05/15/2017 active Keflex Unknown 05/15/2017 active Imitrex Unknown 05/15/2017 active 4053 RXNORM Erythromycin Unknown 05/15/2017 active 3418 RXNORM Dihydroergotamine Unknown 05/15/2017 act claribel Cipro Unknown 05/15/2017 active Aspartame Unknown 05/15/2017 active Amerge Unknown 05/15/2017 active Care Team Name Role Address Phone Organization Dates Vasu Gutierres PCP [address], [place], [address], [place] (Office): [facility] 07/05/2021 - 07/05/2021 Goals Section Goals Description [...] completed tuberculin skin test; unspecified formulation lotNumber: [id number] expiry: 10/12/2022 Mfg: Sandfi-pasteur Given 0.1 ml Left Forearm intradermally 98 CVX created date: 06/13/2021 consent date: 06/13/2021 administer ed date: 06/13/2021 TB 1 Step Mantoux (PPD) completed tuberculin skin test; unspecified formulation lotNumber: [id number] expiry: 06/05/2018 Mfg: Tubersol Given 0.1 ml Left Forearm intradermally 98 CVX created date: 05/15/2017 consent date: 05/15/2017 administer ed date: 05/15/2017 TB 2 Step Mantoux Skin Test completed tuberculin skin test; unspecified formulation lotNumber: [id number] expiry: 10/12/2022 Mfg: sanofi pasteur limited Given 0.1 ml Left Forearm intradermally Step 2 of Multi-step with next step required 98 CVX created date: 06/29/2021 consent date: 07/04/2021 administer ed date: 06/20/2021 neg TB 2 Step Mantoux Skin Test completed tuberculin skin test; unspecified formulation lotNumber: [id number] expiry: 10/12/2022 Mfg: sanfoi past unli Given [...] Status 1 ALTERED MENTAL STATUS, UNSPECIFIED 06/13/[address] active 2 ANXIETY DISORDER, UNSPECIFIED 06/13/[address] active 3 ATHEROSCLEROTIC HEART DISEASE OF [place] CORONARY ARTERY WITHOUT ANGINA PECTORIS 06/13/[address] active 4 CHRONIC OBSTRUCTIVE PULMONARY DISEASE, UNSPECIFIED 06/13/[address] active 5 DEHYDRATION 06/13/[address] active 6 DEPRESSION, UNSPECIFIED 06/13/[address] active 7 DYSPHAGIA, OROPHARYNGEAL PHASE 06/13/[address] active 8 ESSENTIAL (PRIMARY) HYPERTENSION 06/13/[address] active 9 GASTRO-ESOPHAGEAL REFLUX DISEASE WITHOUT ESOPHAGITIS 06/13/[address] active 10 HYPERLIPIDEMIA, UNSPECIFIED 06/13/[address] active 11 HYPOTHYROIDISM, UNSPECIFIED 06/13/[address] active 12 MAJOR DEPRESSIVE DISORDER, RECURRENT, UNSPECIFIED 06/13/[address] active 13 MIGRAINE, UNSPECIFIED, NOT INTRACTABLE, WITHOUT STATUS MIGRAINOSUS 06/13/[address] active 14 MUSCLE WEAKNESS (GENERALIZED) 06/13/[address] active 15 OTHER SPECIFIED ARTHRITIS, UNSPECIFIED SITE 06/13/[address] active 16 PATIENT'S OTHER NONCOMPLIANCE WITH MEDICATION REGIMEN 06/13/[address] active 17 PERSONAL HISTORY OF BENIGN NEOPLASM OF THE BRAIN 06/13/[address] active 18 PERSONAL HISTORY OF TRANSIENT ISCHEMIC ATTACK (TIA), AND CEREBRAL INFARCTION WITHOUT RESIDUAL DEFICITS 06/13/[address] active 19 TYPE 2 DIABETES MELLITUS WITH HYPERGLYCEMIA 06/13/[address] active 20 UNSTEADINESS ON FEET 06/13/[address] active 21 CHRONIC MIGRAINE WITHOUT AURA 05/15/20 17 06/13/[address] completed 22 HYPERLIPIDEMIA, UNSPECIFIED 05/15/20 17 06/13/[address] completed 23 CUSTODIAL (CURRENT) USE OF INSULIN 05/15/20 17 06/13/[address] completed 24 NICOTINE DEPENDENCE, UNSPECIFIED, UNCOMPLICATED 05/15/[address] active 25 OTHER SPECIFIED ANXIETY DISORDERS 05/15/20 17 06/13/[address] completed 26 OTHER SYMPTOMS AND SIGNS INVOLVING THE MUSCULOSKELETAL SYSTEM 05/15/20 17 06/13/[address] completed 27 TUBAL LIGATION STATUS 05/15/20 17 06/13/[address] completed 28 TYPE 2 DIABETES MELLITUS WITH DIABETIC POLYNEUROPATHY 05/15/20 17 06/13/[address] completed 29 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, INITIAL ENCOUNTER 05/15/20 17 06/13/[address] completed Reason for Referral No Reasons for Referral Entered Social History Social History Observation Description Start Date End Date Code Code System Current Smoking Status Tobacco smoking consumption unknown 083628865 SNOMED CT Sex Assigned At Female 1965 97663-2 [facility] Gender Identity Vital Signs Code Code System Vitals Name Values and Units Timing Information 2339-0 [facility] Blood Sugar Value=90.0 Units=mg/dL 07/04/2021 8310-5 [facility] Body Temperature Value=98.5 Units= F 07/04/2021 64408-2 [facility] O2 % BldC Oximetry Value=97.0 Units= % 07/04/2021 28181-2 LOINC Weight Gtogx=973.2 Units=Lbs 75169-6 [facility] Pain Level Value=2.0 07/03/2021 9279-1 [facility] Respiratory Rate Value=20.0 Units=/m in 07/01/2021 8462-4 [facility] Blood Pressure-Diastolic Value=80 Un its=mmHg 07/01/2021 8480-6 [facility] Blood Pressure-Systolic Vkboi=535 Un its=mmHg 07/01/2021 8867-4 [facility] Heart rate Value=88.0 Units=/min 06/2021 8302-2 [facility] Height Value=66.0 Units=Inches 06/13/2021
--- OUTSIDE RECORDS SUMMARY | 2025-03-13 19:01 | XMS_ITS | Encounter Summary ---
Author Organization [facility] Address [address] [place] [address] Care Team Providers Care Stem Shaper Name Role Phone Vasu Gutierres MD Primary Care Provider Encounter Details Date Type Department Care Team (Late st Contact Info) Description 02/11/2024 Telephone [facility] PHYSICAL THERAPY [address] [facility] [address] [place] [address] Danis Chaidez, PT [address] [facility] [address] [place], [place] [id number] Social History Tobacco Use Types Packs/Day Years Used Date Smoking Tobacco: Former Cigarettes Q uit: 07/17/2023 Passive Smoke Exposure: Current Smokeless Tobacco: Never Alcohol Use Standard Drinks/Week Comments Never 0 (1 standard drink = 0.6 oz pur e alcohol) [facility] Utilities Answer Date Recorded In the past 12 months has [employer], gas, oil, or water [employer] threatened to shut off services in your [...] and heating? Not hard at all 08/25/2023 [facility] [place] of Occupat ional Health - Occupational Stress [...] Description 10/07/2025 11:00 AM EDT Office Visit [facility]OP[facility]TS MEDICINE [address] [place] [address] Cheo Fu MD [address] [facility] [address] [place] [address] documented as of this encounter Visit Diagnoses Not on filedocumented in this encounter Additional Health Concerns Infection Onset Date Last Indicated Resolved Time COVID (rule out) 09/02/2024 09/02/2024 09/02/2024 10:52 AM EST Influenza 09/02/2024 09/02/2024 10/02/2024 9:08 PM EDT documented as of this encounter Care Teams Stem Shaper Relationship Specialty Start Date End Date Vasu Gutierres MD [address] [facility] [address] [place] [address] PCP - General Family Medicine 03/05/23 documented as of this encounter
--- OUTSIDE RECORDS SUMMARY | 2025-03-13 19:01 | XMS_ITS | Encounter Summary ---
Author Organization Healthcare Address [address] [place] [address] Care Team Providers Care Humane Agent Name Role Phone Vasu Gutierres MD Primary Care Provider +1- [phone] Encounter Details Date Type Department Care Team (Late st Contact Info) Description 12/15/[address] [facility] [address], [address] [place] [address] Sweetie Hewitt, PA [address] [place] [address] Social History Tobacco Use Types [...] is at and needs to reschedule the Januaryox to anotherday. Needs the or and needs to be a Friday. Please advise. Best contact number and optimal time of day to reach caller: [phone] Note: Please do not reply to this message. Follow-up communication and further actions as a result of this message need to be communicated with the patient directly, if the patient is not active onMyChart. If the patient is active on MyChart, they will receive notification of the communication/outcome via Attract[employer]. documented in this encounter Plan of Treatment Upcoming Encounters Date Type Department Care Team (Late st Contact Info) Description 04/04/2025 10:40 AM EDT Office [facility] [address], [address] [place] [address] Sweetie Hewitt, PA [address] [place] [address] 06/01/2025 11:00 AM EST Appointment [facility] [address] [place] [address] documented as of this encounter Visit Diagnoses Not on filedocumented in this encounter Additional Health Concerns Assessment Noted Time A fall risk assessment has been complete d for the patient 12/02/2024 10:04 AM EDT A Body Mass Index follow-up plan has been documented for the patient 12/02/2024 10:09 AM EDT documented as of this encounter Care Teams Humane Agent Relationship Specialty Start Date End Date Vasu Gutierres MD [address] [place] [address] PCP - General 05/19/24 documented as of this encounter
--- OUTSIDE RECORDS SUMMARY | 2025-03-13 19:01 | XMS_ITS | Encounter Summary ---
Author Organization [facility] Address [address] [place] [address] Care Team Providers Care Pot Puller Name Role Phone Vasu Gutierres MD Primary Care Provider +1- [phone] Encounter Details Date Type Department Care Team (Late st Contact Info) Description 03/08/2025 Telephone [facility] [address] [facility] [address] [place] [address] Sophie Gentile APRN [address] [address] Social History Tobacco Use Types Packs/Day Years [...] Telephone Encounter - Sophie Gentile APRN - 03/08/2025 11:01 AM EDT [facility] Pre-Infusion Screening Citlali Maravilla has an appointment for Vyepti infusion on 03/09/25. MANAGER LVN called patient to complete pre-infusion screening questions. Unable to speak with patient. Left voicemail to remind patient of appt date, time, and location. Duration of phone call: 1 minute Sophie Gentile APRN [facility] documented in this encounter Plan of Treatment Upcoming Encounters Date Type Department Care Team (Late st Contact Info) Description 04/04/2025 10:40 AM EDT Office Visit [place] [facility] [address], [address]st [place] [address] Sweetie Hewitt PA [address] [place] [address] 06/01/2025 11:00 AM EST Appointment [facility] [address] [place] [address] documented as of this encounter Visit Diagnoses Not on filedocumented in this encounter Additional Health Concerns Assessment Noted Time A fall risk assessment has been complete d for the patient 12/02/2024 10:04 AM EDT A Body Mass Index follow-up plan has been documented for the patient 12/02/2024 10:09 AM EDT documented as of this encounter Care Teams Pot Puller Relationship Specialty Start Date End Date Vasu Gutierres MD [address] [place] [address] PCP - General 05/19/24 documented as of this encounter
--- OUTSIDE RECORDS SUMMARY | 2025-03-13 19:02 | XMS_ITS | Clinical Summary ---
Author Organization [facility] Address [address] [place] [address] Care Team Providers Care Ruby On Rails Consultant Name Role Phone Vasu Gutierres MD Primary Care Provider +1- [phone] Allergies Active Allergy Reactions Criticality Noted Date [...] (one) time each day. Active Continuous Glucose Licensed Psychologist (SusoStyle John 14 Day [place]) device 3 Active Continuous Glucose Sensor (FreeStyle John 2 Sensor) [facility] USE DIRECTED (CHANGE EVERY 14 D AYS. [...] mouth 3 (three) times a day. Active Berkshire FilmsTouch Ultra Test test strip USE TO TEST 4 TIMES DAILY DIRECTED. Active hydrOXYzine pamoate (Vistaril) 25 MG capsule 4 Active Levemir FlexPen 100 UNIT/ML injection pen 4 Active BD Pen Needle Micro U/F 32G X 6 MM misc 2 (two) times a day. as directed 4 Active Lancets (OneTouch Delica Plus [id number]) misc 4 (four) times a day. 4 [...] Encounters Date Type Department Care Team Description 03/10/2025 Telephone [facility] [address] [facility] [address] [address] Sophie Gentile, LEAD INVESTIGATOR 03/08/2025 Telephone [facility] [address] [facility] Room [address] [address] Sophie Gentile, LEAD INVESTIGATOR 02/23/2025 Telephone [facility] [address] [address] Nilda Love, LEAD INVESTIGATOR 02/10/2025 Telephone [place] [facility] [address], 1st [place] [address] Sweetie Hweitt PA HCN - Patient Message (Reschedule ) 12/15/2024 Telephone [facility] [address], [address] [place] [address] Sweetie Hewitt PA 12/14/2024 Telephone [facility] [address], 1st [place] [address] Sweetie Hewitt, PA from Last 3 Months Immunizations Immunization Administration [...] Visit [place] [facility] [address], [address] [place] [address] Sweetie Hewitt, PA [address] [place] [address] 06/01/2025 11:00 AM EST Appointment [facility] [address] [place] [address] Health Maintenance Due Date Last Done Comments [...] of 2 - PCV) 10/25/2020 10/26/2019, 04/18/2014 [id number] Vaccine ( - season) 2024 05/26/2021, 10/21/2020 [facility]-Influenza Vaccine [...] patient's age to complete this topic Insurance [place]IC[place] Care Teams Ruby On Rails Consultant Relationship Specialty Start Date End Date Vasu Gutierres MD [address] [place] [address] PCP - General 05/19/24
--- OUTSIDE RECORDS SUMMARY | 2025-03-13 19:02 | XMS_ITS | Encounter Summary ---
Author Organization Healthcare Address [address] [place] [address] Care Team Providers Care Histotechnologist Name Role Phone Pcp, No Primary Care Provider Vasu Be MD Primary Care Provider +1- [phone] Reason for Referral * Consultation (Routine) - Closed Specialty Diagnoses / Procedures Referred By Contac t Referred To Contact Neurology Diagnoses Chronic intractable headache, unspecified headache type Tardive dyskinesia History of drug abuse History of stroke Major depression in remission (CMS/[facility]) Mira Dolan MD [address] [place] [place] [address] Phone: tel: fax: Luis Armando Weeks MD [address] [facility] [address] [place] [address] Phone: tel: fax: Referral ID Status Reason Start Date Expiration Date V isits Requested Visits Authorized [id number] Closed Specialty Services Required 03/05/2022 09/04/2023 1 1 Encounter Details Date Type Department Care Team (Late st Contact Info) Description 03/05/2022 [facility] [address] [place] [address] Mira Dolan MD [address] [facility] [address] [place] [address] Chronic intractable headache, unspecified headache type [...] Visit [place] [facility] [address] [place] [address] Sweetie Hewitt PA [address] [place] [address] 06/01/2025 11:00 AM EST Appointment [facility] [address] [facility] [address] [place] [address] Scheduled Referrals Name Type Priority Associated Diagnoses [...] remission documented in this encounter Care Teams Histotechnologist Relationship Specialty Start Date End Date Pcp, No [address] [place] [address] PCP - General Family Medicine 06/04/23 05/18/24 Vasu Gutierres MD [address] [place] [address] PCP - General 05/19/24 documented as of this encounter
--- OUTSIDE RECORDS SUMMARY | 2025-03-13 19:02 | XMS_ITS | Patient Health Record ---
[facility] Organization [facility] Address [address] [facility] [address] [place] [id number] Care Team Providers Care Material Scheduler Name Role Phone Samuel Gutierres Primary Care Provider [phone] Paulino Lombardi Unavailable [phone] Allergies Allergen (clinical drug ingredient) Drug/Non Drug [...] 139 Performing Lab: Notes/Report: Test performed by [facility] [address] [place] [address] , [address], [place] [address] Augustus Lee MD, Client Customer Manager CLIA: [id number] Sodium 140 135-145 mmol/L Potassium 3.2 3.5-5.3 [...] Interpretation:Normal Performing Lab: Notes/Report: Test performed by [facility] [address] [place] [address] , [address], [place] [address] Augustus Lee MD, Client Customer Manager CLIA: [id number] Magnesium 1.6 1.6-2.4 mg/dL P-TSH Reviewed date:03/07/2025 10:11:20 AM Interpretation:0.18 Performing Lab: Notes/Report: Test performed by [facility] [address] [place] [address] , [address], [place] [address] Augustus Lee MD, Client Customer Manager CLIA: [id number] TSH 0.18 0.43-5.25 mU/L FAISAL Reviewed date:02/04/2025 05:10:02 PM Interpretation: Performing Lab: Notes/Report: Glycohemoglobin A1c (in hous e) Reviewed date:07/06/2024 08:31:07 AM Interpretation:7.6% Performing Lab: Notes/Report: 7.6% glycohemoglobin 7.6% 5 - 6.5 % P-Comprehensive Metabolic Pa [place] (CMP) Reviewed date:07/06/2024 08:31:07 AM Interpretation:gluc 173, Cr 1.22, gfr 50 Performing Lab: Notes/Report: Test performed by [facility] [address] [place], [place] [address] [place] , [address], [place] [address] Augustus Lee MD, Client Customer Manager CLIA: [id number] Sodium 138 135-145 mmol/L Potassium 4.1 3.5-5.3 [...] 0.3 <0.2-1.2 mg/dL A/G Ratio 1.7 1.1-2.5 P-Lipid Panel Reviewed date:07/06/2024 08:31:07 AM Interpretation:Normal Performing Lab: Notes/Report: Test performed by [facility] [address] [place] [address] , [address], [place] [address] Augustus Lee MD, Client Customer Manager CLIA: [id number] Cholesterol 159 <200 mg/dL Triglycerides 125 <150 [...] Results: 74 Units: mg/dL % Change: - Medications Medication SIG (Take, Route, Frequency, Duration) Notes Start Date End Date Status Cetirizine HCl 10 MG 1 tablet Orally onc e daily Active tiZANidine HCl 4 MG 1 tablet Orally Thre e times a day Active Atorvastatin Calcium 80 MG 1 tab(s) orally once a day in the evening; Duration: 30 days Active Aspirin 325 MG 1 tab(s) orally once a day; Duration: 30 days Active Lisinopril 40 MG 1 tablet Orally Once a day; Duration: 30 days Active Ingrezza 80 MG 1 cap(s) orally At B ed Time; Duration: 30 days Active Omeprazole 40 MG 1 cap(s) Orally once daily; Duration: 30 days Active NIFEdipine ER 30 MG 1 tab(s) Orally Once a day; Duration: 30 days Active traZODone HCl 150 MG 1 tab(s) orally onc e a day (at bedtime) Active Keppra 500 MG 1 tablet Orally Two times a day Active Lantus SoloStar 100 UNIT/ML 20 units Subcutaneous once daily 08/12/2024 Active Farxiga 10 MG 1 tab(s) Orally once a day Active Ibuprofen 800 MG 1 tablet with food o r milk as needed Orally every 8 hrs prn 08/05/2024 Active Accu-Chek Guide w/Device as directed 02/14/2025 Active Promethazine HCl 25 MG 1 tab(s) Orally t wo times a day as needed Active Fluticasone Propionate 50 MCG/ACT 2 spray in each nostril Nasally once a day as needed 10/07/2024 Active Accu-Chek Softclix Lancets - once a day; Duration: 100 days 02/14/2025 Active Accu-Chek Guide Test - as directed In Vi tro daily; Duration: 100 days 02/14/2025 Active Lidocaine 4 % 1 patch Externally O nce a day prn 10/07/2023 Active Qulipta 60 MG 1 tab(s) orally At B ed Time Active Tums 500 MG 2 tablet Orally four times a day as needed 05/06/2023 Active Melatonin 5 MG 1 tab Orally At Bed Time; Duration: 30 days 10/07/2023 Active Glucerna Shake - 240 ml Orally once daily 04/22/2024 Active Diphenoxylate-Atropine 2.5-0.025 MG 1 tab(s) Orally q6h prn diarrhea 01/28/2025 Active BD Pen Needle Micro U/F 32G X 6 MM USE DIRECTED TWICE DAILY.; Duration: 50 Active Desvenlafaxine ER 100 MG 1 tab(s) orally At Bed Time Active FreeStyle John 2 Sensor - USE DIRECTED (CHANGE EVERY 14 D AYS.; Duration: 28 Active FreeStyle John 14 Day [place] - as directed Active Gabapentin 800 MG 1 tab(s) orally 3 ti mes a day; Duration: 30 days 03/11/2025 Active GLUCOMETER DIRECTED TEST QD 07/09/2021 Active Zithromax Z-Chuck 250 MG as directed Orally 01/26/20 Not-Taking Vyepti 100 MG/ML as directed Intravenous Active Vistaril 25 MG 1 cap(s) orally thre e times a day as needed; Duration: 30 days Active Acetaminophen 325 mg TAKE TWO TABLETS BY MOUTH EVERY 6 HOURS NEEDED; Duration: 13 Active Glucagon Emergency 1 MG as directed Injection 05/21 Active Alendronate Sodium 70 mg Take 1 tablet o nce weekly 30 minutes before the first food, beverage or medicine of the day with plain water; Duration: 28 days Not-Taking Immunizations Vaccine Route Administration Date Status Comme nts xFlu shot-36 months and older IM Intramuscular 05/27/2006 Administered xFlu shot-36 months and older IM Intramuscular 06/08/2005 Administered Morphine 10mg/ml IM Intramuscular 09/24/2007 Administered Morphine 10mg/ml IM Intramuscular 07/16/2007 Administered Morphine 10mg/ml IM Intramuscular 06/30/2007 Administered Morphine 10mg/ml IM Intramuscular 06/02/2007 Administered Morphine 10mg/ml IM Intramuscular 03/26/2006 Administered Morphine 10mg/ml IM Intramuscular 12/07/2005 Administered Morphine 10mg/ml IM Intramuscular 12/02/2005 Administered Morphine 10mg/ml IM Intramuscular 11/26/2005 Administered Morphine 10mg/ml IM Intramuscular 11/19/2005 Administered Morphine 10mg/ml IM Intramuscular 09/26/2005 Administered Morphine 10mg/ml IM Intramuscular 09/23/2005 Administered Morphine 10mg/ml IM Intramuscular 09/19/2005 Administered Morphine 10mg/ml IM Intramuscular 09/12/2005 Administered Morphine 10mg/ml IM Intramuscular 09/09/2005 Administered Morphine 10mg/ml IM Intramuscular 09/04/2005 Administered Morphine 10mg/ml IM Intramuscular 09/02/2005 Administered Morphine 10mg/ml IM Intramuscular 08/31/2005 Administered Morphine 10mg/ml IM Intramuscular 08/28/2005 Administered Morphine 10mg/ml IM Intramuscular 08/26/2005 Administered Morphine 10mg/ml IM Intramuscular 08/20/2005 Administered Morphine 10mg/ml IM Intramuscular 08/16/2005 Administered Morphine 10mg/ml IM Intramuscular 08/12/2005 Administered Morphine 10mg/ml IM Intramuscular 08/06/2005 Administered Morphine 10mg/ml IM Intramuscular 08/02/2005 Administered Morphine 10mg/ml IM Intramuscular 07/25/2005 Administered Morphine 10mg/ml IM Intramuscular 07/17/2005 Administered Morphine 10mg/ml IM Intramuscular 07/08/2005 Administered Morphine 10mg/ml IM Intramuscular 06/03/2005 Administered Morphine 10mg/ml IM Intramuscular 05/28/[address] NENITA ORDERED .5 ML> ONLY .1ML IN VIAL DR. GUTIERRES AWARE ONLY .1ML GIVEN. THIS WAS WITNESSED BY BOTH OTHER MA's ON FLOOR WITH ME. VRS & NOTED IN MORPHINE LOG. Morphine 10mg/ml IM Intramuscular 05/25/2005 Administered Morphine 10mg/ml IM Intramuscular 05/22/2005 Administered Morphine 10mg/ml IM Intramuscular 05/15/2005 Administered Morphine 10mg/ml IM Intramuscular 03/12/2005 Administered Morphine 10mg/ml IM Intramuscular 03/06/2005 Administered COVID 19 Allyson Unknown 05/26/2021 Administered COVID 19 Allyson Unknown 10/21/2020 Administered Fluzone PF Quad (6-35 months) Unknown 10/26/2019 Administered Hepatitis A (adult) IM Intramuscular 08/11/2018 Administer ed PNEUMOVAX 23 VACCINE Unknown 10/26/2019 Administered PNEUMOVAX 23 VACCINE Unknown 04/18/2014 Administered Shingrix IM Intramuscular 08/11/2018 Administered Tetanus Tdap-Adacel (over 7yrs) Unknown 07/10/2017 Administered Tetanus Tdap-Adacel (over 7yrs) Unknown 07/10/2017 Administered xFlu shot- 6months-36 months of xnx-ZCOS-KWNY-triva lent Unknown 04/18/2014 Administered xFlu shot-36 months and older IM Intramuscular 06/01/2007 Administered xFlu shot-36 months and older IM Intramuscular 06/07/2008 Administered xFlu shot-36 months and older IM Intramuscular 04/07/2009 Administered Fluzone High Dose (65yr and older) IM Intramuscular 04/22/2024 Administered xFluzone-trivalent- medicare pts. IM Intramuscular 06/17/2011 Administered xFluzone (6mos and older)-trivalent IM Intramuscular 05/10/2010 Administered Fluzone Quad-Medicare (6months&older) IM Intramuscular 04/02/2022 Administered Fluzone Quad-Medicare (6months&older) IM Intramuscular 04/15/2023 Administered Fluzone Quad (6months&older) IM Intramuscular 07/04/2020 Administered xFluzone (6mos and older)-trivalent IM Intramuscular 05/27/2013 Administered Tetanus Tdap-Adacel (over 7yrs) IM Intramuscular 07/10/2017 Administered Fluzone Quad-Medicare (6months&older) IM Intramuscular 05/23/2015 Administered Fluzone Quad-Medicare (6months&older) IM Intramuscular 06/28/2016 Administered Morphine 10mg/ml IM Intramuscular 06/01/2007 Administered Morphine 10mg/ml IM Intramuscular 09/11/2007 Administered xFluzone Intradermal (18-64yrs)-trivalen t-medicare pts ID Intradermal 04/07/2012 Administered Problems Problem Type SNOMED Code ICD Code Onset Dates Problem Status W/U Status Risk Notes Problem Gastroesophageal reflux disease (154735009) GERD (gastroesophageal reflux disease) (K21.9) Active confirmed Problem Essential hypertension (53605370) Essential (primary) hypertension (I10) Active confirmed Problem Insomnia (950391876) Insomnia (G47.00) Active confirmed Problem Essential hypertension (64095453) Essential hypertension (I10) Active confirmed Problem Anxiety (96390963) Anxiety (F41.9) Active confi rmed Problem History of cerebrovascular accident without residual deficits (278746005) History of CVA (cerebrovascular accident) (Z86.73) Active confirmed Problem Seasonal allergy (510365088) Seasonal allergies (J30.2) Active confirmed Problem Hyperthyroidism (28265127) Hyperthyroidism (E05.90) Active confirmed Problem Socialized behavior disorder (506037773) Socialized behavior disorder (F91.2) Active confirmed Problem Mixed anxiety and depressive disorder (107994543) Depression with anxiety (F41.8) Active confirmed Problem Hyperglycemia due to type 2 diabetes mellitus (194540068926596) Type 2 diabetes mellitus with hyperglycemia (E11.65) Active confirmed Problem Dysphagia (32047253) Dysphagia (R13.10) Active confirmed Problem Polyneuropathy due to type 2 diabetes mellitus (643082955) Type 2 diabetes mellitus with diabetic polyneuropathy (E11.42) Active confirmed Problem Chronic pain (18474525) Other chronic pain (G89.29) Active confirmed Problem Adult failure to thrive syndrome (130079216) Adult failure to thrive (R62.7) Active confirmed Problem Long-term current use of anticoagulant (494360224) terminal gauger supervisor (current) use of anticoagulants (Z79.01) Active confirmed Problem Long-term current use of insulin (240363286) terminal gauger supervisor current use of insulin (Z79.4) Active confirmed Problem Thyroid nodule (199431791) Thyroid nodule (E04.1) Active confirmed Problem Acquired hammer toe of left foot (0831331082437412) Hammer toe of left foot (M20.42) Active confirmed Problem Migraine (16747293) Migraine wit hout status migrainosus, not intractable, unspecified migraine type (G43.909) Active confirmed Problem Osteoporosis (05665684) Osteoporosis (M81.0) Active confirmed Problem Intractable periodic headache syndrome (G43.C1) Active confirmed Problem Sacroiliitis (44854503) Sacroiliitis (M46.1) Active confirmed Problem Sleep disorder (17379502) Sleep disorder (G47.9) Active confirmed Problem Multinodular goiter (361480257) Multinodular goiter (E04.2) Active confirmed Problem Status migrainosus (263203916) Complicated migraine with status migrainosus (G43.901) Active confirmed Problem Dyslipidemia (549309860) Dyslipidemia (E78.5) Active confirmed Problem Transient ischemic attack (742357832) TIA (transient ischemic attack) (G45.9) Active confirmed Problem Tardive dyskinesia (323868748) Tardive dyskinesia (G24.01) Active confirmed Problem Tobacco use (592009276) Tobacco use disorder (F17.200) Active confirmed Problem Partial seizure (53986533) Partial seizure disorder (G40.109) Active confirmed Problem Oropharyngeal dysphagia (92874194) Oropharyngeal dysphagia (R13.12) Active confirmed Problem Acquired hammer toe of right foot (4296321175507675) Hammer toe of right foot (M20.41) Active confirmed Problem Right hemiparesis (296623662) Right hemiparesis (G81.91) Active confirmed Problem Cyst of thyroid (33116037) Thyroid cyst (E04.1) Active confirmed Problem History of benign neoplasm of brain (331254450) Hx of meningioma of the brain (Z86.011) Active confirmed Vital Signs Heart Rate 105 /min 03/08/2025 Blood pressure diastolic 74 mm Hg 03/08/2025 Height 63.50 in 03/08/2025 Blood pressure systolic 112 mm Hg 03/08/2025 Weight 115.8 lbs 03/08/2025 BMI 20.19 kg/m2 03/08/2025 Encounters Encounter Location Date Provider Diagnosis [facility] [address] [place] [id number] 03/25/2024 R Josh Nenita Intractable periodic headache syndrome G43.C1 and Tardive dyskinesia G24.01 [facility] [address] [place] [id number] 04/22/2024 R Josh Nenita Intractable periodic headache syndrome G43.C1 and Type 2 diabetes mellitus with diabetic polyneuropathy E11.42 [facility] [address] [place], [place] [id number] 05/13/2024 R Josh Nenita Intractable periodic headache syndrome G43.C1 [facility] [address] [place], [place] [id number] 05/27/2024 R Josh Nenita Intractable periodic headache syndrome G43.C1 [facility] [address] [place], [place] [id number] 07/01/2024 R Josh Nenita Intractable periodic headache syndrome G43.C1 ; Type 2 diabetes mellitus with diabetic polyneuropathy E11.42 and Dyslipidemia E78.5 [facility] [address] [place] [id number] 08/05/2024 R Josh Nenita Intractable periodic headache syndrome G43.C1 ; Type 2 diabetes mellitus with diabetic polyneuropathy E11.42 and Dyslipidemia E78.5 [facility] [address] [place] [id number] 08/26/2024 R Josh Nenita Intractable periodic headache syndrome G43.C1 [facility] [address] [place] [id number] 09/30/2024 R Josh Nenita Intractable periodic headache syndrome G43.C1 [facility] [address] [place] [id number] 10/28/2024 R Josh Nenita Intractable periodic headache syndrome G43.C1 ; Type 2 diabetes mellitus with diabetic polyneuropathy E11.42 ; Tardive dyskinesia G24.01 and BMI 23.0-23.9, adult Z68.23 [facility] [address] [place] [id number] 12/30/2024 R Josh Nenita Intractable periodic headache syndrome G43.C1 ; Tardive dyskinesia G24.01 ; Neoplasm of uncertain behavior of skin D48.5 ; Tobacco use disorder F17.200 ; Essential hypertension I10 and Partial seizure disorder G40.109 [facility] [address] [facility] [address] [place] [id number] 01/25/2025 R Josh Nenita Acute tonsillitis, unspecified J03.90 ; Intractable periodic headache syndrome G43.C1 and BMI 22.0-22.9, adult Z68.22 [facility] [address] [facility] [address] [place] [id number] 03/03/2025 R Josh Nenita Intractable periodic headache syndrome G43.C1 ; Tardive dyskinesia G24.01 ; Tobacco use disorder F17.200 ; Essential hypertension I10 ; Partial seizure disorder G40.109 ; Weight loss R63.4 ; Type 2 diabetes mellitus with diabetic polyneuropathy E11.42 and Multinodular goiter E04.2 [facility] [address] [facility] [address] [place] [id number] 03/08/2025 R Josh Nenita Type 2 diabetes sherlyn itus with diabetic polyneuropathy E11.42 ; Hammer toe of left foot M20.42 ; Hammer toe of right foot M20.41 ; Onychodystrophy L60.3 ; Hyperthyroidism E05.90 ; Weight loss R63.4 and Adult failure to thrive R62.7 [facility] [address] [facility] [address] [place] [id number] 03/11/2025 R Josh Nenita Type 2 diabetes sherlyn itus with diabetic polyneuropathy E11.42 [facility] [address] [facility] [address] [place] [id number] 03/23/2024 R Josh Nenita [facility] [address] [facility] [address] [place] [id number] 03/30/2024 R Josh Nenita Tardive dyskinesia G24.01 [facility] [address] [place], [place] [id number] 04/28/2024 Paulino Phoenix Type 2 diabetes sherlyn itus with diabetic polyneuropathy E11.42 [facility] [address] [place] [id number] 05/06/2024 R Josh Nenita [facility] [address] [place] [id number] 05/10/2024 R Josh Nenita [facility] [address] [place] [id number] 05/31/2024 R Josh Nenita [facility] [address] [place], [place] [id number] 06/03/2024 R Josh Nenita [facility] [address] [place] [id number] 06/03/2024 R Josh Nenita Type 2 diabetes sherlyn itus with diabetic polyneuropathy E11.42 [facility] [address] [place] [id number] 07/01/2024 R Josh Nenita [facility] [address] [place] [id number] 07/02/2024 R Josh Nenita [facility] [address] [place] [id number] 07/06/2024 R Josh Nenita [facility] [address] [place] [id number] 07/08/2024 R Josh Nenita [facility] [address] [place] [id number] 08/12/2024 R Josh Nenita Type 2 diabetes sherlyn itus with diabetic polyneuropathy E11.42 [facility] [address] [place] [id number] 08/18/2024 R Josh Nenita Diarrhea R19.7 [facility] [address] [place] [id number] 08/19/2024 R Josh Nenita [facility] [address] [place] [id number] 08/24/2024 R Josh Nenita [facility] [address] [place] [id number] 08/30/2024 Paulino Phoenix Type 2 diabetes sherlyn itus with diabetic polyneuropathy E11.42 [facility] [address] [place] [id number] 09/16/2024 R Josh Nenita Tardive dyskinesia G24.01 [facility] [address] [place] [id number] 09/21/2024 R Josh Nenita Type 2 diabetes sherlyn itus with diabetic polyneuropathy E11.42 [facility] [address] [place], [place] [id number] 10/04/2024 R Josh Nenita [facility] [address] [place] [id number] 10/05/2024 R Josh Nenita [facility] [address] [place] [id number] 10/07/2024 R Josh Nenita [facility] [address] [place] [id number] 10/07/2024 R Josh Nenita [facility] [address] [place] [id number] 10/15/2024 R Josh Nenita [facility] [address] [place] [id number] 10/15/2024 R Josh Nenita [facility] [address] [place] [id number] 10/26/2024 R Josh Nenita [facility] [address] [place] [id number] 11/24/2024 R Josh Nenita [facility] [address] [place] [id number] 12/06/2024 R Josh Nenita [facility] [address] [place] [id number] 01/13/2025 R Josh Nenita [facility] [address] [place] [id number] 01/28/2025 R Josh Nenita Tardive dyskinesia G24.01 ; Essential hypertension I10 ; Dyslipidemia E78.5 and Type 2 diabetes mellitus with diabetic polyneuropathy E11.42 [facility] [address] [place] [id number] 01/28/2025 R Josh Nenita Diarrhea R19.7 [facility] [address] [place] [id number] 01/28/2025 R Josh Nenita Diarrhea R19.7 [facility] [address] [place] [id number] 02/04/2025 Paulino Phoenix Type 2 diabetes sherlyn itus with diabetic polyneuropathy E11.42 [facility] [address] [place] [id number] 02/14/2025 R Josh Nenita [facility] [address] [place] [id number] 02/17/2025 R Josh Nenita [facility] [address] [place], [place] [id number] 03/07/2025 R Josh Nneita Hyperthyroidism E05. 90 and Multinodular goiter E04.2 [facility] [address] [facility] [address] [place] [id number] 03/09/2025 R Josh Nenita Assessments Encounter Date Diagnosis (ICD Code) Assessment Notes Treatment Notes Treatment Clinical Notes Section Notes 03/25/2024 Intractable periodic headache syndrome (ICD-10 - G43.C1) Order provided for injection of Stadol 3 mg and Phenergan 50 mg IM at [facility] today. 03/25/2024 Tardive dyskinesia (ICD-10 - G24.01) 08/26/2024 Intractable periodic headache syndrome (ICD-10 - G43.C1) Order provided for injection of Stadol 3 mg and Phenergan 50 mg IM at [facility] today. Continue with plan of care [...] mg and Phenergan 50 mg IM at [facility] today. Continue with plan of care as outlined by the [facility]. 10/28/2024 Type 2 diabetes mellitus with diabetic polyneuropathy (ICD-10 - E11.42) 10/28/2024 Intractable periodic headache syndrome (ICD-10 - G43.C1) Order provided for injection of Stadol 3 mg and Phenergan 50 mg IM at [facility] today. Continue with plan of care as outlined by the [facility]. 12/30/2024 Intractable periodic headache syndrome (ICD-10 - G43.C1) Order provided for injection of Stadol 3 mg and Phenergan 50 mg IM at [facility] today. Continue with plan of care as outlined by the [facility]. 12/30/2024 Tardive dyskinesia (ICD-10 - G24.01) 01/25/2025 Acute tonsillitis, unspecified (ICD-10 - J03.90) 01/25/2025 Intractable periodic headache syndrome (ICD-10 - G43.C1) Order provided for injection of Stadol 3 mg and Phenergan 50 mg IM at [facility] today. Continue with plan of care as outlined by the [facility]. 01/28/2025 Tardive dyskinesia (ICD-10 - G24.01) 01/28/2025 Diarrhea (ICD-10 - R19.7) 01/28/2025 Diarrhea (ICD-10 - R19.7) 02/04/2025 Type 2 diabetes mellitus with diabetic polyneuropathy (ICD-10 - E11.42) 03/03/2025 Intractable periodic headache syndrome (ICD-10 - G43.C1) Order provided for injection of Stadol 3 mg and Phenergan 50 mg IM at [facility] today. Continue with plan of care as outlined by the [facility]. 03/03/2025 Tardive dyskinesia (ICD-10 - G24.01) 03/07/2025 Hyperthyroidism (ICD-10 - E05.90) 03/07/2025 Multinodular goiter (ICD-10 - E04.2) 03/08/2025 Type 2 diabetes mellitus with diabetic polyneuropathy (ICD-10 - E11.42) 03/08/2025 Hammer toe of left foot (ICD-10 - M20.42) 03/11/2025 Type 2 diabetes mellitus with diabetic polyneuropathy (ICD-10 - E11.42) 08/18/2024 Diarrhea (ICD-10 - R19.7) 08/12/2024 Type 2 diabetes mellitus with diabetic polyneuropathy (ICD-10 - E11.42) 03/30/2024 Tardive dyskinesia (ICD-10 - G24.01) 04/22/2024 Type 2 diabetes mellitus with diabetic polyneuropathy (ICD-10 - E11.42) 04/22/2024 Intractable periodic headache syndrome (ICD-10 - G43.C1) Order provided for injection of Stadol 3 mg and Phenergan 50 mg IM at [facility] today. 04/28/2024 Type 2 diabetes mellitus with diabetic polyneuropathy (ICD-10 - E11.42) 05/13/2024 Intractable periodic headache syndrome (ICD-10 - G43.C1) Order provided for injection of Stadol 3 mg and Phenergan 50 mg IM at [facility] today. Keep appt with [facility] next week 05/27/2024 Intractable periodic headache syndrome (ICD-10 - G43.C1) Order provided for injection of Stadol 3 mg and Phenergan 50 mg IM at [facility] today. Follow through with plan of care as outlined by the [facility]. 06/03/2024 Type 2 diabetes mellitus with diabetic polyneuropathy (ICD-10 - E11.42) 07/01/2024 Type 2 diabetes mellitus with diabetic polyneuropathy (ICD-10 - E11.42) 07/01/2024 Intractable periodic headache syndrome (ICD-10 - G43.C1) Order provided for injection of Stadol 3 mg and Phenergan 50 mg IM at [facility] today. Follow through with plan of care as outlined by the [facility]. 08/05/2024 Type 2 diabetes mellitus with diabetic polyneuropathy (ICD-10 - E11.42) 08/05/2024 Intractable periodic headache syndrome (ICD-10 - G43.C1) Order provided for injection of Stadol 3 mg and Phenergan 50 mg IM at [facility] today. Continue with plan of care as outlined by the [facility]. 08/05/2024 Dyslipidemia (ICD-10 - E78.5) 07/01/2024 Dyslipidemia (ICD-10 - E78.5) 03/08/2025 Hammer toe of right foot (ICD-10 - M20.41) 03/03/2025 Tobacco use disorder (ICD-10 - F17.200) 01/25/2025 BMI 22.0-22.9, adult (ICD-10 - Z68.22) 01/28/2025 Essential hypertension (ICD-10 - I10) 12/30/2024 Neoplasm of uncertain behavior of skin (ICD-10 - D48.5) 10/28/2024 Tardive dyskinesia (ICD-10 - G24.01) 10/28/2024 BMI 23.0-23.9, adult (ICD-10 - Z68.23) 12/30/2024 Tobacco use disorder (ICD-10 - F17.200) 03/03/2025 Essential hypertension (ICD-10 - I10) 01/28/2025 Dyslipidemia (ICD-10 - E78.5) 03/08/2025 Onychodystrophy (ICD-10 - L60.3) Both great toenails are debrided with the Dremel tool. Bilateral toenails 2 - 5 are trimmed with clippers. 03/03/2025 Partial seizure disorder (ICD-10 - G40.109) 03/08/2025 Hyperthyroidism (ICD-10 - E05.90) Proceed with additional labs and thyroid scan as ordered. 01/28/2025 Type 2 diabetes mellitus with diabetic polyneuropathy (ICD-10 - E11.42) 12/30/2024 Essential hypertension (ICD-10 - I10) 03/03/2025 Weight loss (ICD-10 - R63.4) 12/30/2024 Partial seizure disorder (ICD-10 - G40.109) 03/08/2025 Weight loss (ICD-10 - R63.4) 03/08/2025 Adult failure to thrive (ICD-10 - R62.7) Concur with need for long-term care placement 03/03/2025 Type 2 diabetes mellitus with diabetic polyneuropathy (ICD-10 - E11.42) 03/03/2025 Multinodular goiter (ICD-10 - E04.2) Plan Of Treatment Pending Test Test Name Order Date Lipid Profile 12/11/2023 Glycohemoglobin (HbA1C) 12/11/2023 Bone density 12/03/2022 colonoscopy 12/03/2022 CMP 12/11/2023 Radioactive Iodine Uptake Scan (I-123) 0 03/07/2025 CT Scan : Chest, low dose 12/03/2022 Cologuard 12/03/2022 H-Thyroid panel 03/07/2025 H-Thyroid Peroxidase Antibodies 03/07/20 Insurance Providers Payer Name Payer Address Payer Phone Subscriber Number Group Number Insured Name Patient Relationship to Insured Coverage Start Date Coverage End Date [employer] [address] [address] [place], [place] [id number] JACI AWAN Self - patient is the insured Medications Administered Medication Instructions Date of Administration Dosage Notes Dexamethasone 05/23/2015 1 mL Phenergan 12.5 mgs. IM 05/15/2005 1 mL Phenergan 12.5 mgs. IM 07/08/2005 25 mg Phenergan 12.5 mgs. IM 07/16/2005 1 mL Phenergan 12.5 mgs. IM 07/25/2005 Phenergan 12.5 mgs. IM 08/02/2005 25 mg Phenergan 12.5 mgs. IM 08/06/2005 1 mL Phenergan 12.5 mgs. IM 08/20/2005 1 mL Phenergan 12.5 mgs. IM 09/02/2005 25 mg Phenergan 12.5 mgs. IM 09/04/2005 25 mg Phenergan 12.5 mgs. IM 09/12/2005 25 mg Phenergan 12.5 mgs. IM 09/30/2005 0.5 mL Phenergan 12.5 mgs. IM 12/02/2005 25 mg Phenergan 12.5 mgs. IM 12/07/2005 25 mg Phenergan 12.5 mgs. IM 03/26/2006 25 mg Phenergan 12.5 mgs. IM 05/27/2006 25 mg phenergan 25 mg/ml 05/22/2005 0.5 mL phenergan 25 mg/ml 05/25/2005 0.5 mL phenergan 25 mg/ml 08/12/2005 0.5 mL phenergan 25 mg/ml 08/16/2005 1 mL phenergan 25 mg/ml 08/26/2005 1 mL phenergan 25 mg/ml 08/28/2005 0.5 mL phenergan 25 mg/ml 08/31/2005 0.5 mL phenergan 25 mg/ml 09/09/2005 0.5 mL phenergan 25 mg/ml 09/19/2005 0.5 mL phenergan 25 mg/ml 09/26/2005 0.5 mL phenergan 25 mg/ml 11/26/2005 1 mL phenergan 25 mg/ml 06/01/2007 25 mg phenergan 25 mg/ml 06/02/2007 1 mL phenergan 25 mg/ml 09/11/2007 25 mg phenergan 25 mg/ml 09/24/2007 50 mg phenergan 25 mg/ml 09/01/2010 50 mg phenergan 25 mg/ml 09/14/2010 50 mg phenergan 25 mg/ml 04/02/2011 phenergan 25 mg/ml 04/04/2011 25 mg phenergan 50mg/ml 05/28/2005 1 mL phenergan 50mg/ml 07/23/2005 phenergan 50mg/ml 11/19/2005 0.5 mL phenergan 50mg/ml 04/22/2006 phenergan 50mg/ml 05/13/2008 50 mg phenergan 50mg/ml 11/04/2008 50 mg phenergan 50mg/ml 01/05/2010 stadol 06/06/2005 1.5 mL stadol 06/24/2005 3 mg stadol [...] 3 mg stadol 04/22/2006 2 mg stadol 06/15/2005 1.5 mL phenergan 50mg/ml 07/30/2013 50 mg phenergan 50mg/ml 07/05/2013 50 mL phenergan 50mg/ml 02/08/2010 50 mg phenergan 50mg/ml 01/20/2010 50 mg phenergan 50mg/ml 09/23/2006 phenergan 25 mg/ml 11/02/2013 50 mg phenergan 25 mg/ml 05/30/2010 25 mL phenergan 25 mg/ml 05/10/2010 50 mg phenergan 25 mg/ml 04/17/2010 50 mg phenergan 25 mg/ml 04/14/2010 1 mL phenergan 25 mg/ml 01/04/2010 50 mg phenergan 25 mg/ml 12/12/2009 50 mg phenergan 25 mg/ml 11/29/2009 50 mg phenergan 25 mg/ml 11/28/2009 50 mg phenergan 25 mg/ml 03/09/2009 1 mL phenergan 25 mg/ml 02/27/2009 25 mg phenergan 25 mg/ml 02/13/2009 25 mg phenergan 25 mg/ml 01/30/2009 25 mg phenergan 25 mg/ml 12/20/2008 25 mg phenergan 25 mg/ml 12/05/2008 25 mg phenergan 25 mg/ml 12/03/2008 1 mL phenergan 25 mg/ml 11/29/2008 1 mL phenergan 25 mg/ml 09/23/2008 25 mg phenergan 25 mg/ml 09/12/2008 50 mg phenergan 25 mg/ml 05/31/2008 50 mg phenergan 25 mg/ml 09/24/2007 50 mg phenergan 25 mg/ml 04/10/2018 1 mL phenergan 25 mg/ml 05/27/2016 25 mg phenergan 25 mg/ml 06/22/2013 50 mg phenergan 25 mg/ml 06/08/2013 50 mg phenergan 25 mg/ml 04/19/2011 50 mg phenergan 25 mg/ml 03/15/2011 phenergan 25 mg/ml 02/18/2011 1 mL phenergan 25 mg/ml 02/05/2011 1 mL phenergan 25 mg/ml 01/22/2011 1 mL phenergan 25 mg/ml 01/11/2011 50 mg phenergan 25 mg/ml 12/25/2010 50 mg phenergan 25 mg/ml 12/10/2010 50MG phenergan 25 mg/ml 11/27/2010 50 mg phenergan 25 mg/ml 11/23/2010 50MG phenergan 25 mg/ml 11/09/2010 25 mg phenergan 25 mg/ml 10/29/2010 25 mg phenergan 25 mg/ml 10/15/2010 25 mg phenergan 25 mg/ml 10/01/2010 25 mg phenergan 25 mg/ml 07/12/2010 25 mL phenergan 25 mg/ml 06/18/2010 25 mL phenergan 25 mg/ml 03/02/2010 50 mg phenergan 25 mg/ml 12/22/2009 50 mg phenergan 25 mg/ml 10/10/2009 50 mg phenergan 25 mg/ml 09/29/2009 50 mg phenergan 25 mg/ml 09/15/2009 50 mg phenergan 25 mg/ml 09/01/2009 50 mg phenergan 25 mg/ml 08/22/2009 50 mg phenergan 25 mg/ml 07/25/2009 25 mg phenergan 25 mg/ml 07/17/2009 phenergan 25 mg/ml 07/03/2009 25 mg phenergan 25 mg/ml 06/19/2009 25 mg phenergan 25 mg/ml 05/23/2009 25 mg phenergan 25 mg/ml 05/09/2009 25 mg phenergan 25 mg/ml 04/22/2009 25 mg phenergan 25 mg/ml 04/10/2009 phenergan 25 mg/ml 03/30/2009 1 mL phenergan 25 mg/ml 02/03/2007 25 mg phenergan 25 mg/ml 01/23/2007 phenergan 25 mg/ml 12/29/2006 25 mg phenergan 25 mg/ml 12/26/2006 25 mg phenergan 25 mg/ml 12/09/2006 25 mg phenergan 25 mg/ml 11/27/2006 1 mL phenergan 25 mg/ml 08/25/2006 1 mL phenergan 25 mg/ml 05/20/2006 0.1 phenergan 25 mg/ml 05/15/2006 1 mL phenergan 25 mg/ml 04/08/2006 25 mg phenergan 25 mg/ml 03/11/2006 1 mL phenergan 25 mg/ml 03/10/2006 25 mg phenergan 25 mg/ml 01/28/2006 25 mg phenergan 25 mg/ml 01/06/2006 phenergan 25 mg/ml 12/23/2005 0.5 phenergan 25 mg/ml 11/18/2005 1 mL phenergan 25 mg/ml 11/12/2005 1 mL phenergan 25 mg/ml 11/05/2005 25 mg phenergan 25 mg/ml 10/31/2005 phenergan 25 mg/ml 10/15/2005 phenergan 25 mg/ml 07/17/2005 1 mL Phenergan 12.5 mgs. IM 10/20/2013 12.5 mg Phenergan 12.5 mgs. IM 11/11/2006 25 mg Phenergan 12.5 mgs. IM 09/02/2006 25 mg Phenergan 12.5 mgs. IM 08/26/2006 25 mg Phenergan 12.5 mgs. IM 06/05/2006 25 mg Phenergan 12.5 mgs. IM 05/30/2006 Phenergan 12.5 mgs. IM 05/13/2006 50 mg Phenergan 12.5 mgs. IM 05/05/2006 50 mg Phenergan 12.5 mgs. IM 04/24/2006 50 mg Phenergan 12.5 mgs. IM 04/17/2006 25 mg Phenergan 12.5 mgs. IM 04/14/2006 25 mg Phenergan 12.5 mgs. IM 02/26/2006 25 mg Phenergan 12.5 mgs. IM 02/21/2006 25 mg Phenergan 12.5 mgs. IM 02/07/2006 25 mg Phenergan 12.5 mgs. IM 01/23/2006 25 mg Phenergan 12.5 mgs. IM 01/17/2006 25 mg Phenergan 12.5 mgs. IM 12/13/2005 25 mg Phenergan 12.5 mgs. IM 10/28/2005 25 mg Phenergan 12.5 mgs. IM 10/11/2005 25 mg Phenergan 12.5 mgs. IM 10/11/2005 25 mg Phenergan 12.5 mgs. IM 10/07/2005 25 mg Phenergan 12.5 mgs. IM 09/23/2005 25 mg Phenergan 12.5 mgs. IM 07/30/2005 1 mL Phenergan 12.5 mgs. IM 07/03/2005 25 mg Phenergan 12.5 mgs. IM 06/24/2005 50 mg Phenergan 12.5 mgs. IM 06/06/2005 1 mL Phenergan 12.5 mgs. IM 06/03/2005 1 mL Morphine 04/04/2011 7.5 mg Morphine 04/14/2010 2 mg Morphine 11/28/2009 5 mg Morphine 12/20/2008 7.5 mg Morphine 12/05/2008 7.5 mg Morphine 12/03/2008 2 mg Morphine 11/29/2008 5 mg Morphine 11/04/2008 7.5 mg Morphine 09/23/2008 10 mg Morphine 09/12/2008 10 mg Morphine 05/31/2008 10 mg Morphine 05/13/2008 5 mg Morphine 12/31/2007 5 mg Dexamethasone 08/20/2017 2 mL Dexamethasone 09/24/2016 1 mL Dexamethasone 09/20/2016 1 mL Dexamethasone 03/03/2015 1 mL Hortensia solis gave injection. Dexamethasone 12/08/2014 1 mL Dexamethasone 12/06/2014 1 mL Dexamethasone 11/05/2014 1 mL Dexamethasone 03/29/2014 1 mL Dexamethasone 12/17/2013 1 mL Dexamethasone 11/02/2013 1 mL Dexamethasone 10/11/2013 1 mL Dexamethasone 04/27/2013 Dexamethasone 02/27/2013 1.5 mL Dexamethasone 09/25/2012 Dexamethasone 05/29/2010 1 mL Dexamethasone 04/14/2010 1/2 ml Dexamethasone 01/05/2010 1mL Dexamethasone 02/27/2009 2 mg Dexamethasone 02/13/2009 2 mg Dexamethasone 01/30/2009 2 mg Dexamethasone 01/13/2009 2 mg Dexamethasone 12/22/2008 1/2 ml Dexamethasone 12/20/2008 1/2 ml Dexamethasone 09/23/2008 1 mL Dexamethasone 03/02/2007 4 mg Dexamethasone 12/26/2006 1 mL Dexamethasone 08/25/2006 1 mL Dexamethasone 04/24/2006 1 mL Dexamethasone 04/17/2006 1 mL Dexamethasone 01/10/2006 8 mg Depo- Medrol 40 mg/ml 12/19/2015 1.5 mL Depo- Medrol 40 mg/ml 11/06/2015 1 mL Depo- Medrol 40 mg/ml 10/13/2015 1 mL Depo- Medrol 40 mg/ml 03/20/2015 1 mL Depo- Medrol 40 mg/ml 10/04/2014 1 mL Depo- Medrol 40 mg/ml 07/05/2014 1 mL Depo- Medrol 40 mg/ml 09/29/2013 Depo- Medrol 40 mg/ml 09/16/2013 1.5 mL Depo- Medrol 40 mg/ml 04/12/2013 Depo- Medrol 40 mg/ml 04/02/2013 Depo- Medrol 40 mg/ml 03/18/2013 1.5 mL Depo- Medrol 40 mg/ml 02/04/2013 Depo- Medrol 40 mg/ml 01/05/2013 1 mL Depo- Medrol 40 mg/ml 01/04/2010 1 mL Depo- Medrol 40 mg/ml 11/28/2009 1 mL B-12 05/08/2023 1 mL B-12 05/30/2022 1 mL B- 03/03/2015 1 mL Hortensia Herringpard gave injection. - 01/03/2015 1 mL B- 12/06/2014 1 mL B- 11/05/2014 1 mL B- 09/30/2014 1 mL B- 09/16/2014 1 mL B- 09/02/2014 1 mL B- 08/19/2014 1 mL B- 07/22/2014 1 mL B- 07/05/2014 1 mL B- 04/12/2013 B- 03/18/2013 1 mL B- 02/04/2013 B-12 12/22/2012 1 mL B-12 11/26/2012 1 mL Depo- Medrol 40 mg/ml 12/18/2021 1 mL Depo- Medrol 40 mg/ml 08/02/2022 1.5 mL Dexamethasone 09/14/2010 1 mL B- 10/05/2012 1 mL B- 09/01/2010 1 mL stadol 04/24/2006 2 mg stadol 05/05/2006 2 [...] Type 2 DM Tobacco addiction Tardive dyskinesia Multinodular goiter by ultrasound Partial seizures Surgical History Surgery Date(Month/Year) RT breast lumpectomy 1998 DREZ procedure 1999 tubal ligation 2000 teeth extracted 03/20/2009 Meningoma removed from left side of brai n 12/08/2013 Repeat DREZ procedure - Dr. Barahona ORIF R ankle fx/ [facility] 06/2023 [facility] Hospitalization History Reason Date(Month/Year)
--- OUTSIDE RECORDS SUMMARY | 2025-03-13 19:02 | XMS_ITS | Clinical Summary ---
Author Organization [facility] Address [address] [place] [address] Care Team Providers Care Kiln Drawer Name Role Phone Vasu Gutierres MD Primary [...] Needle Micro U/F 32G X 6 MM [facility] Active Lancets (OneTouch Delica Plus [id number]) [facility] Active nicotine (NICODERM CQ) 21 MG/24HR [...] EDT - 12/22/2024 2:20 PM EDT Emergency [facility] [address] [place] [id number] Wesley Stuart MD Constipation, unspecified constipation type (Primary Dx) Discharge Disposition: Home or Self Care 12/22/2024 Travel from Last 3 Months Social History Tobacco Use Types Packs/Day Years Used Date Smoking Tobacco: Former Cigarettes Q uit: 07/17/2023 Passive Smoke Exposure: Current Smokeless Tobacco: Never Tobacco Cessation:Counseling Given: No Alcohol Use Standard Drinks/Week Comments Never 0 (1 standard drink = 0.6 oz pur e alcohol) [facility] Utilities Answer Date Recorded In the past 12 months has [employer] gas, oil, or water [employer] threatened to shut off services in your [...] and heating? Not hard at all 08/25/2023 [facility] of Occupat ional Health - Occupational Stress [...] Description 10/07/2025 11:00 AM EDT Office Visit [facility] [address] [place] [address] Cheo Fu MD [address] [place] [address] Health Maintenance Due Date Last Done Comments [...] 07/10/2027 017 Medical Devices Implanted Type Area Cofounder Device Identifier Shelf Expiration Date Model / Serial / Lot Scrw Yunior Lp Ss 3.5x32mm - [id number] Implanted:Qty: 1 on 07/22/2023 by Cheo Fu MD at [facility] Implant Right: Ankle ARTHREX [id number] / / Plt Hk Medl Ss 5h - [id number] Implanted:Qty: 1 on 07/22/2023 by Cheo Fu MD at [facility] Implant Right: Ankle ARTHREX [id number] / / Scrw Yunior Lp Ss 3.5x26mm - [id number] Implanted:Qty: 1 on 07/22/2023 by Cheo Fu MD at [facility] Implant Right: Ankle ARTHREX [id number] / / Scrw Josiah Lp Thrd/Shrt Ss 4x42mm - [id number] Implanted:Qty: 1 on 07/22/2023 by Cheo Fu MD at [facility] Implant Right: Ankle ARTHREX [id number] / / Plt Dist Ankl Lk 6h 104mm Rt - [id number] Implanted:Qty: 1 on 07/22/2023 by Cheo Fu MD at [facility] Implant Right: Ankle ARTHREX [id number] / / Scrw Yunior Lp Ss 3.5x50mm - [id number] Implanted:Qty: 1 on 07/22/2023 by Cheo Fu MD at [facility] Implant Right: Ankle ARTHREX [id number] / / Scrw Yunior Lp Ss 3.5x42mm - [id number] Implanted:Qty: 1 on 07/22/2023 by Cheo Fu MD at [facility] Implant Right: Ankle ARTHREX [id number] / / Scrw Compr Kreulock Lk Ful/Thrd Ss 2.7x12mm - [id number] Implanted:Qty: 1 on 07/22/2023 by Cheo Fu MD at [facility] Implant Right: Ankle ARTHREX [id number] / / Scrw Compr Kreulock Lk Ful/Thrd Ss 2.7x16mm - [id number] Implanted:Qty: 3 on 07/22/2023 by Cheo Fu MD at [facility] Implant Right: Ankle ARTHREX [id number] / / Scrw Yunior Lp Ss 3.5x12mm - [id number] Implanted:Qty: 3 on 07/22/2023 by Cheo Fu MD at [facility] Implant Right: Ankle ARTHREX [id number] / / Gw Troc Tp 1.23m826uq - [id number] Implanted:Qty: 2 on 07/22/2023 by Cheo Fu MD at [facility] Implant Right: Ankle ARTHREX [id number] / / Explanted Type Area Cofounder Device Identifier Shelf Expiration Date Model / Serial / Lot Scrw Yunior Lp Ss 2.7x16mm - [id number] Explanted:Qty: 1 on 07/22/2023 by Cheo Fu MD at [facility] Implant Right: Ankle ARTHREX [id number] / / Scrw Yunior Lp Ss 2.7x18mm - [id number] Explanted:Qty: 1 on 07/22/2023 by Cheo Fu MD at [facility] Implant Right: Ankle ARTHREX [id number] / / Procedures Procedure Name Priority Date/Time [...] METABOLIC PANEL STAT 12/22/2024 11:51 AM EDT HEMOGLOBIN A1C STAT 12/30/2023 11:38 AM [...] Correlate with symptoms and history. Electronically Signed: eWsley Lyons MD 12/22/2024 1:36 PM EDT Workstation ID: [id number] [facility] 12/22/2024 1:[address] ABDOMEN PELVIS [...] MD 12/22/2024 1:36 PM EDT Workstation ID: [id number] us Harsha Grady Jr., KARLY IM CT ORDERABLES Fin al Result * (ABNORMAL) Urinalysis With Microscopic If Indicated (No Culture) - Urine, Clean Catch (12/22/2024 12:02 PM EDT) Color, UA Yellow Yellow, Straw 12/22/2024 12:23 PM EDT [facility] Appearance, UA Clear Clear 12/22/2024 12:23 PM EDT [facility] pH, UA 5.5 5.0 - 8.0 12/22/2024 12:23 PM EDT [facility] Specific [place], UA 1.035(H) 1.001 - 1.030 12/22/2024 12:23 PM EDT [facility] Glucose, UA >=1000 mg/dL (3+)(A) Negative 12/22/2024 12:23 PM EDT [facility] Ketones, UA Negative Negative 12/22/2024 12:23 PM EDT [facility] Bilirubin, UA Negative Negative 12/22/2024 12:23 PM EDT [facility] Blood, UA Negative Negative 12/22/2024 12:23 PM EDT [facility] Protein, UA Trace(A) Negative 12/22/2024 12:23 PM EDT [facility] Leuk Esterase, UA Negative Negative 12/22/2024 12:23 PM EDT [facility] Nitrite, UA Negative Negative 12/22/2024 12:23 PM EDT [facility] Urobilinogen, UA 1.0 E.U./dL 0.2 - 1.0 E.U./dL 12/22/2024 12:23 PM EDT [facility] Urine Urine specimen obtained by clean catch procedure / Unknown Collection / Unknown 12/22/2024 12:02 PM EDT 12/22/2024 12:18 PM EDT Narrative [facility] - 12/22/2024 12:23 PM EDT Urine microscopic not indicated. us Wesley Stuart MD URINE ORDERABLES Final Result Performing Organization Address City/[facility]/ZIP Co de Phone Number [facility]
[address] [place] [address], [place] [phone] * Roland Top (12/22/2024 11:51 AM EDT) Extra Tube Hold for add-ons. 12/22/2024 12:00 PM EDT [facility] Comment:Auto resulted. Blood Venipuncture / Unknown 12/22/2024 11:51 AM EDT 12/22/2024 12:00 PM EDT us Wesley Stuart MD LAB BLOOD ORDER ONLY Final Res ult Performing Organization Address City/[facility]/ZIP Co de Phone Number [facility] [place] [address], [place] [phone] * Gold Top - SST (12/22/2024 11:51 AM EDT) Extra Tube Hold for add-ons. 12/22/2024 12:00 PM EDT [facility] Comment:Auto resulted. Blood Venipuncture / Unknown 12/22/2024 11:51 AM EDT 12/22/2024 12:00 PM EDT us Wesley Stuart MD LAB BLOOD ORDER ONLY Final Res ult Performing Organization Address City/[facility]/ZIP Co de Phone Number [facility]
[address] [place] [address], * Green Top (Gel) (12/22/2024 11:51 AM EDT) Extra Tube Hold for add-ons. 12/22/2024 12:00 PM EDT [facility] Comment:Auto resulted. Blood Venipuncture / Unknown 12/22/2024 11:51 AM EDT 12/22/2024 12:00 PM EDT us Wesley Stuart MD LAB BLOOD ORDER ONLY Final Res ult Performing Organization Address City/[facility]/ZIP Co de Phone Number [facility]
[address] [place] [address], * (ABNORMAL) CBC Auto Differential (12/22/2024 11:51 AM EDT) WBC 8.86 3.40 - 10.80 10*3/mm3 12/22/2024 12:08 PM EDT [facility] RBC 4.65 3.77 - 5.28 10*6/mm3 12/22/2024 12:08 PM EDT [facility] Hemoglobin 14.7 12.0 - 15.9 g/dL 12/22/2024 12:08 PM EDT [facility] Hematocrit 45.0 34.0 - 46.6 % 12/22/2024 12:08 PM EDT [facility] MCV 96.8 79.0 - 97.0 fL 12/22/2024 12:08 PM EDT [facility] MCH 31.6 26.6 - 33.0 pg 12/22/2024 12:08 PM EDT [facility] MCHC 32.7 31.5 - 35.7 g/dL 12/22/2024 12:08 PM EDT [facility] RDW 12.4 12.3 - 15.4 % 12/22/2024 12:[facility] RDW-SD 44.0 37.0 - 54.0 fl 12/22/2024 12:08 PM [facility] MPV 9.4 6.0 - 12.0 fL 12/22/2024 12:08 [facility] Platelets 199 140 - 450 10*3/mm3 12/22/2024 12:08 PM EDT [facility] Neutrophil % 69.4 42.7 - 76.0 % 12/22/2024 12:08 [facility] Lymphocyte % 24.7 19.6 - 45.3 % 12/22/2024 12:08 [facility] Monocyte % 4.5(L) 5.0 - 12.0 % 12/22/2024 12:08 [facility] Eosinophil % 0.5 0.3 - 6.2 % 12/22/2024 12:08 PM EDT [facility] Basophil % 0.7 0.0 - 1.5 % 12/22/2024 12:08 PM EDT [facility] Immature Grans % 0.2 0.0 - 0.5 % 12/22/2024 12:08 [facility] Neutrophils, Absolute 6.15 1.70 - 7.00 10*3/mm3 12/22/2024 12:08 PM EDT [facility] Lymphocytes, Absolute 2.19 0.70 - 3.10 10*3/mm3 12/22/2024 12:08 PM EDT [facility] Monocytes, Absolute 0.40 0.10 - 0.90 10*3/mm3 12/22/2024 12:08 PM EDT [facility] Eosinophils, Absolute 0.04 0.00 - 0.40 10*3/mm3 12/22/2024 12:08 PM EDT [facility] Basophils, Absolute 0.06 0.00 - 0.20 10*3/mm3 12/22/2024 12:08 PM EDT [facility] Immature Grans, Absolute 0.02 0.00 - 0.05 10*3/mm3 12/22/2024 12:08 PM EDT [facility] nRBC 0.0 0.0 - 0.2 /100 WBC 12/22/2024 12:08 PM EDT [facility] Blood Venipuncture / Unknown 12/22/2024 11:51 AM EDT 12/22/2024 12:00 PM EDT us Wesley Stuart MD LAB BLOOD ORDERABLES Final Res ult [facility]
[address] [place] [address], * Lavender Top (12/22/2024 11:51 AM EDT) Extra Tube hold for add-on 12/22/2024 12:15 PM EDT [facility] Comment:Auto resulted Blood Venipuncture / Unknown 12/22/2024 11:51 AM EDT 12/22/2024 12:00 PM EDT us Wesley Stuart MD LAB BLOOD ORDER ONLY Final Res ult [facility]
[address] [place] [address], [place] [phone] * Lipase (12/22/2024 11:51 AM EDT) Lipase 38 13 - 60 U/L 12/22/2024 12:32 PM EDT [facility] Blood Venipuncture / Unknown 12/22/2024 11:51 AM EDT 12/22/2024 12:00 PM EDT us Wesley Stuart MD LAB BLOOD ORDERABLES Final Res ult Performing Organization Address [facility] Co de Phone Number [facility]
[address] [place] [address], [place] [phone] * Lactic Acid, Plasma (12/22/2024 11:51 AM EDT) Lactate 0.8 0.5 - 2.0 mmol/L 12/22/2024 12:35 PM EDT [facility] Comment:Falsely depressed re sults may occur on samples drawn from patients receiving N-Acetylcysteine (NAC) or Metamizole. Blood Venipuncture / Unknown 12/22/2024 11:51 AM EDT 12/22/2024 12:00 PM EDT us Wesley Stuart MD LAB BLOOD ORDERABLES Final Res ult Performing Organization Address [facility] de Phone Number [facility] [place] [address], [place] [phone] * (ABNORMAL) Comprehensive Metabolic Panel (12/22/2024 11:51 AM EDT) Glucose 148(H) 65 - 99 mg/dL 12/22/2024 12:32 PM EDT [facility] BUN 25.2(H) 8.0 - 23.0 mg/dL 12/22/2024 12:32 PM EDT [facility] Creatinine 1.07(H) 0.57 - 1.00 mg/dL 12/22/2024 12:32 PM [facility] Sodium 138 136 - 145 mmol/L 12/22/2024 12:32 PM [facility] Potassium 4.3 3.5 - 5.2 mmol/L 12/22/2024 12:32 PM [facility] Comment:Slight hemolysis det ected by analyzer. Result may be falsely elevated. Chloride 103 98 - 107 mmol/L 12/22/2024 12:32 PM [facility] CO2 24.0 22.0 - 29.0 mmol/L 12/22/2024 12:32 PM [facility] Calcium 9.5 8.6 - 10.5 mg/dL 12/22/2024 12:32 PM [facility] Total Protein 6.4 6.0 - 8.5 g/dL 12/22/2024 12:32 PM [facility] Albumin 4.0 3.5 - 5.2 g/dL 12/22/2024 12:32 PM [facility] ALT (SGPT) 17 1 - 33 U/L 12/22/2024 12:32 PM [facility] AST (SGOT) 15 1 - 32 U/L 12/22/2024 12:32 PM [facility] Alkaline Phosphatase 105 39 - 117 U/L 12/22/2024 12:32 PM [facility] Total Bilirubin 0.2 0.0 - 1.2 mg/dL 12/22/2024 12:32 PM [facility] Globulin 2.4 gm/dL 12/22/2024 12:32 PM [facility] Comment:Calculated Result A/G Ratio 1.7 g/dL 12/22/2024 12:32 PM [facility] BUN/Creatinine Ratio 23.6 7.0 - 25.0 12/22/2024 12:32 PM [facility] Anion Gap 11.0 5.0 - 15.0 mmol/L 12/22/2024 12:32 PM [facility] eGFR 59.2(L) >60.0 mL/min/1.7 3 12/22/2024 12:32 PM EDT [facility] Blood Venipuncture / Unknown 12/22/2024 11:51 AM EDT 12/22/2024 12:00 PM EDT Narrative [facility] - 12/22/2024 12:32 PM EDT GFR [...] does not include race as a factor Wesley Stuart MD LAB BLOOD ORDERABLES Final Res ult Performing Organization Address City/[facility]/ZIP Co de Phone Number [facility]
[address] [place] [address], [place] [phone] * (ABNORMAL) Hemoglobin A1c (12/30/2023 11:38 AM EDT) Hemoglobin A1C 7.90(H) 4.80 - 5.60 % 12/30/2023 2:09 PM EDT [facility] Blood Venipuncture / Unknown 12/30/2023 11:38 AM EDT 12/30/2023 11:39 AM EDT Narrative [facility] - 12/30/2023 2:09 PM EDT Hemoglobin A1C Ranges: Increased Risk for Diabetes 5.7% to 6.4% Diabetes >= 6.5% Diabetic Goal < 7.0% us Vasu Gutierres MD LAB BLOOD ORDERABLES F inal Result Performing Organization Address City/[facility]/ZIP Co de Phone Number [facility]
[address] [place] [address], [place] [phone] * (ABNORMAL) Lipid Panel (12/30/2023 11:38 AM EDT) Total Cholesterol 145 0 - 200 mg/dL 12/30/2023 7:13 PM EDT [facility] Triglycerides 86 0 - 150 mg/dL 12/30/2023 7:13 PM EDT [facility] HDL Cholesterol 62(H) 40 - 60 mg/dL 12/30/2023 7:13 PM EDT [facility] LDL Cholesterol 67 0 - 100 mg/dL 12/30/2023 7:13 PM EDT [facility] VLDL Cholesterol 16 5 - 40 mg/dL 12/30/2023 7:13 PM EDT [facility] LDL/HDL Ratio 1.06 12/30/2023 7:13 PM EDT [facility] Blood Venipuncture / Unknown 12/30/2023 11:38 AM EDT 12/30/2023 11:39 AM EDT Narrative [facility] - 12/30/2023 7:13 PM EDT Cholesterol [...] High 160-189 mg/dL Very High >189 mg/dL Vasu Gutierres MD LAB BLOOD ORDERABLES F inal Result [facility]
[address] [place] [address], from Last 3 Months or Most Recently Relevant to Health Maintenance Insurance [facility] [employer] SNP PPO Advance Directives * CPR (Attempt to [...] or is breathing): Full Support Care Teams Kiln Drawer Relationship Specialty Start Date End Date Vasu Gutierres MD [facility] [address] [facility] [address] [place] [address] PCP - General Family Medicine 03/05/23
--- NOTE | 2025-03-13 19:04 | CT_ITS ---
PROCEDURE INFORMATION: Exam: CTA Head With Contrast, Arteriography Exam date and time: 03/13/2025 7:41 PM Age: 60 years old Clinical indication: Stroke-like symptoms; Speech disturbance; Additional info: H/o meningioma, PT concern for slurred speach TECHNIQUE: Imaging protocol: Computed tomographic angiography of the head with contrast. Exam focused on the arteries. 3D rendering (Not supervised by radiologist): MIP and/or 3D reconstructed images were created by the technologist. Radiation optimization: All CT scans at this facility use at least one of these dose optimization techniques: automated exposure control; mA and/or kV adjustment per patient size (includes targeted exams where dose is matched to clinical indication); or iterative reconstruction. Contrast material: ISOVUE; Contrast volume: 80 ml; Contrast route: INTRAVENOUS (IV); COMPARISON: CT HEAD/BRAIN WO CON 03/13/2025 7:39 PM FINDINGS: ANTERIOR CIRCULATION: Right internal carotid artery: Moderate calcific atherosclerotic disease of the right intracranial ICA resulting in moderate stenosis of the ophthalmic segment. Right middle cerebral artery: No occlusion or significant stenosis. No aneurysm. Right anterior cerebral artery: No occlusion or significant stenosis. No aneurysm. Left internal carotid artery: Moderate calcific atherosclerotic disease of the left intracranial ICA resulting in moderate stenosis of the ophthalmic segment. Left middle cerebral artery: No occlusion or significant stenosis. No aneurysm. Left anterior cerebral artery: No occlusion or significant stenosis. No aneurysm. POSTERIOR CIRCULATION: Right vertebral artery: No occlusion or significant stenosis. No aneurysm. Left vertebral artery: No occlusion or significant stenosis. No aneurysm. Basilar artery: No occlusion or significant stenosis. No aneurysm. Right posterior cerebral artery: No occlusion or significant stenosis. No aneurysm. Left posterior cerebral artery: No occlusion or significant stenosis. No aneurysm. Brain: No definite mass, mass effect, or midline shift. Cerebral ventricles: No ventriculomegaly. Bones/joints: Unremarkable. No acute fracture. Soft tissues: Unremarkable. Other findings: Postsurgical changes compatible with left craniotomy with hardware fixation, and right basilar craniectomy. IMPRESSION: 1. Moderate calcific atherosclerotic disease of the right intracranial ICA resulting in moderate stenosis of the ophthalmic segment. 2. Moderate calcific atherosclerotic disease of the left intracranial ICA resulting in moderate stenosis of the ophthalmic segment.
--- NOTE | 2025-03-13 19:04 | CT_ITS ---
PROCEDURE INFORMATION: Exam: CT Head Without Contrast Exam date and time: 03/13/2025 7:39 PM Age: 60 years old Clinical indication: Stroke-like symptoms; Speech disturbance; Additional info: H/o meningioma, PT concern for slurred speach TECHNIQUE: Imaging protocol: Computed tomography of the head without contrast. Radiation optimization: All CT scans at this facility use at least one of these dose optimization techniques: automated exposure control; mA and/or kV adjustment per patient size (includes targeted exams where dose is matched to clinical indication); or iterative reconstruction. Other technique: STROKE PROTOCOL was implemented. COMPARISON: CT HEAD/BRAIN WO CON 07/24/2022 10:35 AM FINDINGS: Brain: Right cerebellar and left frontoparietal encephalomalacia likely related to prior ischemic event. There is moderate diffuse cerebral volume loss present. Multiple subcortical and deep hypoattenuating white matter foci are present, likely related to small vessel senescent changes and can also be seen with prior infectious / inflammatory insult, or prior traumatic events. No hyperattenuating foci are identified to suggest acute intracranial hemorrhage. Cerebral ventricles: No ventriculomegaly. Paranasal sinuses: Visualized sinuses are unremarkable. No fluid levels. Mastoid air cells: Visualized mastoid air cells are well aerated. Bones: Unremarkable. No acute fracture. Soft tissues: Unremarkable. Other findings: Postsurgical changes compatible with left frontal craniotomy and right basilar craniectomy. IMPRESSION: 1. Multiple subcortical and deep hypoattenuating white matter foci are present, likely related to small vessel senescent changes and can also be seen with prior infectious / inflammatory insult, or prior traumatic events. 2. No hyperattenuating foci are identified to suggest acute intracranial hemorrhage. ASSESSMENT: ASPECTS ([place] Stroke Program Early CT Score) is 10.
--- NOTE | 2025-03-13 19:04 | CT_ITS ---
PROCEDURE INFORMATION: Exam: CTA Neck With Contrast Exam date and time: 03/13/2025 7:41 PM Age: 60 years old Clinical indication: Stroke-like symptoms; Speech disturbance; Additional info: H/o meningioma, PT concern for slurred speach TECHNIQUE: Imaging protocol: Computed tomographic angiography of the neck with contrast. Exam focused on the cervical segments of the vasculature. 3D rendering (Not supervised by radiologist): MIP and/or 3D reconstructed images were created by the technologist. Radiation optimization: All CT scans at this facility use at least one of these dose optimization techniques: automated exposure control; mA and/or kV adjustment per patient size (includes targeted exams where dose is matched to clinical indication); or iterative reconstruction. Contrast material: ISOVUE; Contrast volume: 80 ml; Contrast route: INTRAVENOUS (IV); COMPARISON: CT - SPCERVWO CT cervical spine wo con 11/03/2018 9:43 PM FINDINGS: Right common carotid artery: No stenosis. No dissection or occlusion. Right internal carotid artery: Moderate mixed calcific and noncalcified atherosclerotic disease of the right carotid bulb resulting in severe stenosis of the right ICA origin. Right external carotid artery: No occlusion or stenosis of the origin. Left common carotid artery: No stenosis. No dissection or occlusion. Left internal carotid artery: Moderate mixed calcific and noncalcified atherosclerotic disease of the left carotid bulb resulting in moderate stenosis. Left external carotid artery: No occlusion or stenosis of the origin. Right vertebral artery: No stenosis. No dissection or occlusion. Left vertebral artery: No stenosis. No dissection or occlusion. Soft tissues: Normal. No significant soft tissue swelling. Bones/joints: Moderate loss of intervertebral disc space with degenerative changes involving C6-C7. IMPRESSION: 1. Moderate mixed calcific and noncalcified atherosclerotic disease of the right carotid bulb resulting in severe stenosis of the right ICA origin. 2. Moderate mixed calcific and noncalcified atherosclerotic disease of the left carotid bulb resulting in moderate stenosis. REFERENCES: NASCET CRITERIA. The degree of stenosis in the cervical segment of the internal carotid artery is based on NASCET criteria. Normal is no stenosis. Mild is less than 50% stenosis. Moderate is 50-69% stenosis. Severe is 70% to 99% stenosis. Total occlusion is no detectable patent lumen.
--- NOTE | 2025-03-13 19:06 | ECG_ITS ---
APPROVED REPORT Exam: Resting ECG HR:94 bpm ECG Measurements Heart Rate 94 AXES NH 175 P 67 QRSd 116 QRS -41 QT 368 T 81 QTc 419 Conclusion SINUS RHYTHM LEFT AXIS DEVIATION [QRS AXIS < -30] LOW QRS VOLTAGE IN PRECORDIAL LEADS [QRS DEFLECTION < 1.0 mV IN CHEST LEADS] PROBABLE INFERIOR MYOCARDIAL INFARCTION , OF INDETERMINATE AGE [35 ms Q WAVE IN II/aVF] POSSIBLE ANTEROSEPTAL MYOCARDIAL INFARCTION , OF INDETERMINATE AGE [30 ms Q WAVE IN V1-V4] ABNORMAL ECG UNCONFIRMED REPORT Electronically signed by : Kenneth Rojo, 03/13/2025 23:10:09
--- NOTE | 2025-03-13 19:06 | HMH.EDGENADL ---
Discharge Plan Disposition Patient Disposition: Xfer Other Prescriptions Prescriptions: No Action lisinopril 5 mg tablet 20 mg PO DAILY trazodone 150 mg tablet 225 mg PO HS Patient Comments: Novolin 70-30 FlexPen U-100 100 unit/mL (70-30) insulin pen 20 unit SQ BID gabapentin 800 mg tablet 800 mg PO TID atorvastatin 80 mg tablet 80 mg PO HS 30 Days Qty: 30 0RF valbenazine 80 mg capsule 80 mg PO DAILY Qty: 30 3RF tizanidine 4 MG tablet 4 mg PO TIDP PRN (Reason: Muscle Spasm) omeprazole 40 MG capsule,delayed release(DR/EC) 40 mg PO DAILY furosemide 20 MG tablet 20 mg PO DAILY metformin 500 MG tablet extended release 24 hr 1,000 mg PO DAILY desvenlafaxine succinate 100 MG tablet extended release 24 hr 100 mg PO DAILY hydroxyzine HCl 25 MG tablet 25 mg PO TIDP PRN (Reason: Anxiety) Qty: 20 0RF aspirin 325 mg tablet 325 mg PO DAILY benztropine 1 mg tablet 1 mg PO BID rimegepant 75 MG tablet,disintegrating 75 mg PO DAILYP PRN (Reason: Migraine Headache) pregabalin 200 MG capsule 200 mg PO TID Qulipta 60 mg tablet 60 mg PO DAILY levetiracetam [Keppra] 500 mg Tablet 500 mg PO BID Referrals Follow up/Referrals: Provider,Referral, MD [Primary Care Provider, Medical] - See instructions Clinical Impressions Clinical Impression: Slurred speech, Carotid stenosis, right, Myocardial injury Stand Alone Forms Stand Alone Forms: Transfer Record - ED Print Language Print Language: Bulgarian Discharge ED Provider: Broderick Rojo General Adult HPI General Chief complaint: Headache Stated complaint: STROKE ALERT Time Seen by Provider: 03/13/25 19:04 History of Present Illness HPI narrative: Patient is a 60-year-old female with a history of meningioma status postresection from 2017 she also states she has had multiple other brain surgeries associated with epilepsy in the past presents today with what she believes is worsening of her slurred speech. She has chronically slurred speech has tardive dyskinesia which is chronic and also has chronic slurring of her speech but believes it may have been a bit worse as she got scared thinking she may be having had another stroke. She has chronic right-sided weakness which that is at her baseline. States that she feels much better after being here emotionally. Also has had a mild headache. Has had surveillance CT scans most recently within the last year which were at her baseline she states. Related Data Home Medications ?Medication ?Instructions ?Recorded ?Confirmed pregabalin 200 mg capsule 200 mg PO TID Pain 06/09/21 03/03/25 rimegepant 75 mg disintegrating 75 mg PO DAILYP PRN Migraine 06/09/21 03/03/25 tablet Headache desvenlafaxine succinate 100 mg 100 mg PO DAILY MOOD 12/07/21 03/03/25 tablet,extended release 24 hr furosemide 20 mg tablet 20 mg PO DAILY Fluid 12/07/21 03/03/25 metformin 500 mg tablet,extended 1,000 mg PO DAILY Diabetes 12/07/21 03/03/25 release 24 hr omeprazole 40 mg capsule,delayed 40 mg PO DAILY GERD 12/07/21 03/03/25 release tizanidine 4 mg tablet 4 mg PO TIDP PRN Muscle Spasm 12/07/21 03/03/25 lisinopril 5 mg tablet 20 mg PO DAILY blood pressure 02/27/22 03/03/25 trazodone 150 mg tablet 225 mg PO HS Sleep 02/27/22 03/03/25 insulin NPH-regular 70-30 U-100 20 unit SQ BID Diabetes 04/25/22 03/03/25 insulin 100 unit/mL subcutaneous pen (Novolin 70-30 FlexPen U-100 Insulin) aspirin 325 mg tablet 325 mg PO DAILY Blood thinner 05/16/22 03/03/25 benztropine 1 mg tablet 1 mg PO BID Tremors 05/16/22 03/03/25 gabapentin 800 mg tablet 800 mg PO TID NEUROPATHY 06/17/22 03/03/25 atogepant 60 mg tablet (Qulipta) 60 mg PO DAILY MOOD 08/29/22 03/03/25 levetiracetam 500 mg tablet 500 mg PO BID 06/19/23 03/03/25 (Keppra) Previous Rx's ?Medication ?Instructions ?Recorded atorvastatin 80 mg tablet 80 mg PO HS Cholesterol 30 days 09/08/20 #30 tabs hydroxyzine HCl 25 mg tablet 25 mg PO TIDP PRN Anxiety #20 tabs 12/10/21 valbenazine 80 mg capsule 80 mg PO DAILY MOOD #30 caps 12/17/22 Allergies Allergy/AdvReac Type Severity Reaction Status Date / Time cephalexin (CEPHALEXIN) Allergy Intermediate I-ITCHING Verified 03/03/25 16:09 Cephalosporins Allergy Intermediate ITCHING Verified 03/03/25 16:09 levofloxacin (From LEVAQUIN) Allergy Intermediate I-RASH Verified 03/03/25 16:09 Macrolide Antibiotics Allergy Intermediate ITCHING Verified 03/03/25 16:09 Penicillins (PENICILLINS) Allergy Intermediate I-RASH, Verified 03/03/25 16:09 VOMITING Quinolones (QUINOLONES) Allergy Intermediate I-RASH Verified 03/03/25 16:09 Sulfa (Sulfonamide Allergy Intermediate I-RASH Verified 03/03/25 16:09 Antibiotics) (SULFA (SULFONAMIDE ANTIBIOTICS)) trimethoprim (TRIMETHOPRIM) Allergy Intermediate I-RASH Verified 03/03/25 16:09 ciprofloxacin (From CIPRO) Allergy Unknown Unknown Verified 03/03/25 16:09 allergy reaction eletriptan (From RELPAX) Allergy Unknown Unknown Verified 03/03/25 16:09 allergy reaction ergonovine (ERGONOVINE) Allergy Unknown NA-NAUSEA/V Verified 03/03/25 16:09 OMITING erythromycin base Allergy Unknown Unknown Verified 03/03/25 16:09 (ERYTHROMYCIN BASE) allergy reaction ketorolac (KETOROLAC) Allergy Unknown NA-NAUSEA/V Verified 03/03/25 16:09 OMITING methadone (METHADONE) Allergy Unknown SWELLING Verified 03/03/25 16:09 OF FEET metoclopramide (From REGLAN) Allergy Unknown NA-HALLUCIN Verified 03/03/25 16:09 ATIONS naratriptan (NARATRIPTAN) Allergy Unknown Unknown Verified 03/03/25 16:09 allergy reaction quetiapine (From SEROQUEL) Allergy Unknown Unknown Verified 03/03/25 16:09 allergy reaction sumatriptan (From IMITREX) Allergy Unknown Unknown Verified 03/03/25 16:09 allergy reaction vilazodone (From VIIBRYD) Allergy Unknown Unknown Verified 03/03/25 16:09 allergy reaction PFSH PFSH Disclaimer: The information contained in this section may have been updated after the patient was seen, as this information can be updated by other users. Medical History Anxiety and depression Arthritis CAD (coronary artery disease) COPD (chronic obstructive pulmonary disease) CVA (cerebral vascular accident) Diabetes DVT (deep venous thrombosis) Expressive aphasia HLD (hyperlipidemia) HTN (hypertension) Hypothyroid Meningioma Migraine Sinus problem Tardive dyskinesia UTI (urinary tract infection) Surgical History H/O brain surgery History of cardiac cath History of colonoscopy History of tubal ligation S/P lumpectomy, right breast Family History Other Cancer Coronary artery disease Diabetes Stroke Social History (Updated 03/03/25 @ 15:11 by Natasha Dey RN) Smoking Status: Former smoker tobacco type: cigarettes packs per day: 1 second hand exposure: No alcohol intake: current alcohol intake frequency: a few times a month counseling provided: none substance use type: former substance user and methamphetamine current occupational status: disabled Travel in the last 8 weeks?: None household members: none housing: apartment number of children: 0 caffeine: Yes Have you lived/traveled outside [place] in past 30 days?: No Contact w/someone who lives/traveled outside [place] past 30 days?: No Exposure to someone with infectious disease in past 14 days?: No Do you have a fever (greater than 100.4 F or 38 C)?: No Have you tested positive for COVID-19?: No Exposed to someone with COVID-19 in past 14 days?: No Do you have a sore throat?: No Do you have a cough?: No Do you have any weakness?: No Do you have any diarrhea?: No Are you experiencing any unusual bleeding?: No Do you have any muscle aches/pain?: No Do you have any abdominal pain?: No Are you experiencing loss of taste or smell?: No Other Medical History Have you received the Flu Vaccine for this season: No Have you received the Pneumonia Vaccine: No ROS Obtained: Yes All systems reviewed & no additional complaints except as documented Physical Exam General General appearance: alert and in no apparent distress Comment: Patient with smacking of her lips and ongoing movements of her tongue consistent with tardive dyskinesia Respiratory Respiratory exam: Present normal lung sounds bilaterally; Absent respiratory distress Cardiovascular Cardiovascular exam: Present regular rate and normal rhythm Abdominal Exam Abdominal exam: Present soft; Absent distention Neurological Exam Neurological exam: Present alert, oriented X3 and other (Right upper and right lower extremity 4-5 strength which is at her baseline she also has difficulty with speaking but she has obvious tardive dyskinesia and is able to be understood clearly from my perspective) Medical Decision Making Medical Records Screening: Per USPSTF and CDC recommendations, given the prevalence of disease in our region, it is our hospital?s policy to screen for HIV and viral Hepatitis for all patients aged 18 and over and those with ongoing risk factors. Corey Inquiry Pt receiving controlled substance: No Vital Signs: 03/13/25 18:57 03/13/25 19:01 03/13/25 19:09 Temperature 97.8 F Temperature Source Oral Pulse Rate 65 Pulse Rate [Left Radial] 92 H Respiratory Rate 15 17 20 Blood Pressure 159/103 H 174/110 H Blood Pressure [Right Radial Artery] 159/109 H Blood Pressure Mean [Right Radial Artery] 125 02 Sat by Pulse Oximetry 77 L 95 Oxygen Delivery Method Room Air 03/13/25 19:30 03/13/25 19:50 03/13/25 19:50 Temperature Temperature Source Pulse Rate 92 H 82 87 Pulse Rate [Left Radial] Respiratory Rate 13 18 17 Blood Pressure 172/94 H 172/94 H Blood Pressure [Right Radial Artery] Blood Pressure Mean [Right Radial Artery] 02 Sat by Pulse Oximetry 97 98 96 Oxygen Delivery Method Room Air 03/13/25 20:00 03/13/25 20:30 Temperature Temperature Source Pulse Rate 79 Pulse Rate [Left Radial] Respiratory Rate 17 18 Blood Pressure 156/84 H 185/97 H Blood Pressure [Right Radial Artery] Blood Pressure Mean [Right Radial Artery] 02 Sat by Pulse Oximetry 99 Oxygen Delivery Method Lab Data Lab results reviewed: Yes I reviewed the patient's lab results. Lab Results 03/13/25 18:59: WBC 7.9, RBC 5.16, Hgb 16.1, Hct 47.8 H, MCV 92.6, MCH 31.2, MCHC 33.7, RDW 12.3, Plt Count 221, MPV 9.6, Neut % (Auto) 69.3, Lymph % (Auto) 23.1, [place] % (Auto) 6.7, Eos % (Auto) 0.1, Baso % (Auto) 0.5, Neut # (Auto) 5.5, Lymph # (Auto) 1.8, [place] # (Auto) 0.5, Eos # (Auto) 0.0, Baso # (Auto) 0.0, PT 11.2, INR 1.01, APTT 23.1, Sodium 138, Potassium 3.6, Chloride 102, Carbon Dioxide 21 L, Anion Gap 18.6 H, BUN 23 H, Creatinine 0.80, Estimated Creat Clear 54, Estimated GFR 73, Est GFR ( Amer) 88, Glucose 178 H, Calcium 9.8, Total Bilirubin 1.0, AST 54 H, ALT 39, Alkaline Phosphatase 107, Troponin I 0.09 H, Total Protein 7.4, Albumin 4.6, Globulin 2.8, Albumin/Globulin Ratio 1.6 03/13/25 18:59 03/13/25 18:59 Orders (Tests/Meds): ED MEDICATIONS Generic Name Dose Route Start Last Admin Trade Name Freq PRN Reason Stop Dose Admin Sodium Chloride 10 ml 03/13/25 19:39 03/13/25 19:40 Sodium Chloride 0.9% 10ml Syr (Rad Only) IV 04/12/25 19:38 10 ml NEEDED PRN Administration Maintain IV Site Discontinued Medications Generic Name Dose Route Start Last Admin Trade Name Freq PRN Reason Stop Dose Admin Lactated Ringer's 1,000 mls @ 999 mls/hr 03/13/25 19:15 03/13/25 21:08 Lactated Ringer's 1000 Ml Bag IV 03/13/25 20:15 Infused .Q1H1M ZANDER Infusion Iopamidol 80 ml 03/13/25 19:39 03/13/25 19:40 Iopamidol-370 (76%);100ml Bottle IV 03/13/25 19:40 80 ml ONCE ONE Administration Sodium Chloride 40 ml 03/13/25 19:39 03/13/25 19:40 0.9 % Sodium Chloride 50 Ml Vial IV 03/13/25 19:40 40 ml ONCE ONE Administration ORDERS Category Date Time Status CT angio head Stat Cat Scan 03/13/25 19:[address] angio neck Stat Cat Scan 03/13/25 19:[address] head/brain wo con Stat Cat Scan 03/13/25 19:04 Completed CXR --portable [XR chest portable] Stat Exams 03/13/25 19:47 Completed CBC w/Auto Diff [Complete Blood Count Auto Diff] Stat Lab 03/13/25 18:59 Completed CMP [Comprehensive Metabolic Panel] Stat Lab 03/13/25 18:59 Completed PT/PTT Stat Lab 03/13/25 18:59 Completed Trop I [Troponin I] Stat Lab 03/13/25 18:59 Completed Troponin I Q3H Lab 03/13/25 22:15 Ordered Troponin I Q3H Lab 03/14/25 01:15 Ordered UA [Urinalysis and Microscopic] Stat Lab 03/13/25 19:06 Ordered Medical Decision Narrative: 60-year-old with above history and physical she appears to be at her baseline with a history of tardive dyskinesia however claimed that she may have had some mild worsening of her slurring of her speech which is chronic. Holding off on a stroke alert at the moment however this remains in the differential include worsening or recurrence of her meningioma hemorrhage in her brain and metabolic or infectious abnormalities dehydration etc. Will get scans basic workup administer IV fluids and reassess. Reassessment 816 patient remains unchanged from a neurologic standpoint still is having difficulty speaking and no one at the bedside to corroborate whether this is new or different patient still states that it is different. CT scans performed which I personally interpreted also spoke with radiology no significant hemorrhage or stroke some old microvascular changes however there are some concerning findings on the CTA specifically severe stenosis of the ICA. It is possible that she is symptomatic from that today. I most likely believe that this is chronic in nature however must assume that this is acute given her ongoing symptoms and stating that this is different than her baseline. Therefore I will need to transfer her where she can be evaluated by a neurosurgeon/vascular surgeon and worked up further for possible stroke. She is followed at [facility] by Dr. Bhandari who has operated on her multiple times. Will attempt to transfer the patient there. Ultimately I spoke with Dr. Hugo who accepted the patient for transfer. Patient's friends ultimately showed up and states that she has had increasing falls and potentially increasing right-sided weakness which could be symptomatic from the severe ICA stenosis. They do state that they believe her speech is near her baseline however patient still adamant that this is different. Patient will be further evaluated by neurosurgery/vascular and the stroke team at [facility]. Critical Care Critical Care Time Critical Care Time: Yes Attestation: On 03/13/25, the high probability of a clinically significant, sudden or life threatening deterioration of the following system(s) required my full and direct attention, intervention and personal management. The time I documented below is in addition to time spent performing reported procedures but includes the following listed in this critical care notation. Total Time Total Critical Care Time: 35
[2025-03-13 19:25] LABS: Hematocrit 47.8 % (37.0-47.0); Hemoglobin 16.1 g/dL (12.2-16.2); Immature Granulocytes % 0.3 %; Mean Corpuscular HGB Conc 33.7 g/dL (31.8-35.4); Mean Corpuscular Hemoglobin 31.2 pg (27.0-31.2); Mean Corpuscular Volume 92.6 fl (81-99); Nucleated Red Blood Cells % 0 %; Platelet Count 221 K/mm3 (142-424); Red Blood Count 5.16 M/mm3 (4.20-5.40); Red Cell Distribution Width-SD 42.1 fL; White Blood Count 7.9 K/mm3 (4.8-10.8)
[2025-03-13 19:32] LABS: Activated Partial Thrombo Time 23.1 seconds (22.8-30.6); INR 1.01 (0.9-1.1); Prothrombin Time 11.2 seconds (10.1-12.5)
--- NOTE | 2025-03-13 19:33 | PC.NURSE ---
pt taken to ct scan at this time. AOx4, NAD noted. Aware of the need for urine for testing, patient agrees to have purewick placed once she is back from ct scan.
[2025-03-13 19:39] LABS: Alanine Aminotransferase 39 U/L (12-78); Albumin Level 4.6 g/dl (3.5-5.0); Albumin/Globulin Ratio 1.6 (1.1-1.8); Alkaline Phosphatase 107 U/L (38-126); Anion Gap 18.6 mEq/L (5-15); Aspartate Amino Transferase 54 U/L (14-36); Bilirubin,Total 1.0 mg/dl (0.2-1.3); Blood Urea Nitrogen 23 mg/dl (7-17); Calcium 9.8 mg/dl (8.4-10.2); Carbon Dioxide 21 mmol/L (22.0-30.0); Chloride 102 mmol/L (98-107); Creatinine Clearance Estimated 54 mL/min (50-200); Creatinine,Serum 0.80 mg/dl (0.52-1.04); Estimated Glomerular Filt Rate 73 ml/min (>60); GFR (African American) 88 ML/MIN (>60); Globulin 2.8 g/dL (1.3-3.2); Glucose 178 mg/dl (74-100); Potassium 3.6 mmoL/L (3.5-5.1); Sodium 138 mmol/L (136-145); Total Protein,Serum 7.4 g/dl (6.3-8.2)
[2025-03-13] MEDS: SODIUM CHLORIDE 0.9% 10ML SYR (RAD ONLY) 10 ML IV (19:40)
[2025-03-13] MEDS: IOPAMIDOL-370 (76%);100ML BOTTLE 80 ML IV (19:40)
[2025-03-13] MEDS: 0.9 % SODIUM CHLORIDE 50 ML VIAL 40 ML IV (19:40)
[2025-03-13] MEDS: LACTATED RINGERS 1000ML 1,000 ML 999 ML IV (19:47)
--- NOTE | 2025-03-13 19:47 | XR_ITS ---
PROCEDURE INFORMATION: Exam: XR Chest Exam date and time: 03/13/2025 7:43 PM Age: 60 years old Clinical indication: Dyspnea TECHNIQUE: Imaging protocol: Radiologic exam of the chest. Views: 1 view. COMPARISON: CR XR CHEST PORTABLE 07/01/2024 2:06 PM FINDINGS: Lungs: Unremarkable. No consolidation. Pleural spaces: Unremarkable. No pleural effusion. No pneumothorax. Heart/Mediastinum: Unremarkable. No cardiomegaly. Bones/joints: Unremarkable. IMPRESSION: No acute findings.
[2025-03-13 19:50] LABS: Troponin I 0.09 ng/ml (0.00-0.034)
--- NOTE | 2025-03-13 19:50 | PC.NURSE ---
purewick placed on patient.
[2025-03-14 00:12] VITALS: BP 136/81; PULSE 79; RESP 19; TEMP 36.6; O2SAT 98
== END 2025-03-14 00:27 | disposition other institution (70) ==
PROVIDERS: Emergency Provider Student in an Organized Health Care Education/Training Program
DX: R47.81 Slurred speech (principal); I5A Non-ischemic myocardial injury (non-traumatic); I65.21 Occlusion and stenosis of right carotid artery; G24.01 Drug induced subacute dyskinesia; Z87.891 Personal history of nicotine dependence; Z86.73 Personal history of transient ischemic attack (TIA), and cerebral infarction without residual deficits; I10 Essential (primary) hypertension
CPT/HCPCS: 70450; 70496; 70498; 71045; 80053; 84484; 85025; 85610; 85730; 93005; 96360; 99285; J7120; Q9967

== ENCOUNTER 2025-04-11 10:49 | Outpatient (CLI) | payer MEDICARE, MEDICAID, SELFPAY ==
--- OUTSIDE RECORDS SUMMARY | 2024-12-30 07:45 | XMS_ITS ---
Author [facility] Address [facility] [address] [place] [phone] Care Team Providers Care Instrumentation Supervisor Name Role Phone Samuel Gutierres Primary Care [...] n behavior of skin (D48.5) [facility] Referring Provider First Name Samuel Moreno Referring Provider Last Name Nenita Referring Provider Speciality Family Pra ctice Referred Organization [facility] OP Referred Provider Trudy Pacheco Referred Address [address] [facility] [address] [id number], Referred Provider Specialty Dermatology General Notes Carla Adams 2024 09:51:05 AM > faxed to Dr. Pacheco's office Referral Priority Routine REASON FOR VISIT migraines Medications Medication SIG (Take, Route, Frequency, Duration) Notes Start Date End Date Status OneTouch Delica Plus [id number] - USE 4 TIMES DAILY; Duration: 25 Active Acetaminophen 325 mg TAKE TWO TABLETS BY MOUTH EVERY 6 HOURS NEEDED; Duration: 13 Active Fluticasone Propionate 50 MCG/ACT 2 spray in each nostril Nasally once a day as needed 10/07/2024 Active FreeStyle John 14 Day [place] - as directed Active FreeStyle John 2 [...] TOUCH GLUCOMETER DIRECTED USE DIRECTED 08/15/2021 Active Ubiquitous EnergyTouch Ultra 2 w/Device as directed 12/31/2022 Active [...] 12/30/2024 Encounters Encounter Location Date Provider Diagnosis [facility] [address] [place], [place] [phone] 12/30/2024 R Josh Gutierres Intractable periodic headache [...] and Phenergan 50 mg IM at [facility] today. Continue with plan of [...] and Phenergan 50 mg IM at [facility] today. Referrals Referral Date Details 12/30/2024 12/30/2024, possible skin cancer, Trudy Pacheco, [address] [facility], [place], [place], [phone], Next Appt Details Follow Up: prn, Reason: Progress Notes * JESUS MANUEL PITTMANBROOKLYNB:1965 (60 yo F)Acc No.[id number]:12/30/2024 Progress Notes Patient: JACI HERNANDEZ Provider: Samuel Gutierres M.D. :1965 A ge:59 Y S ex:Female Date:12/30/2024 Address:[facility] Subjective: * Chief Complaints: * 1 . [...] been discharged from her current residence at [facility]. She tells me she has made arrangements to stay with a friend here in [facility]. D ermatology: She is complaining of a [...] Dr. Barahona 03/25/2017, ORIF R ankle fx/ [facility] 06/2023, Explant of screws from right ankle/ [facility] 07/2023. * Family History: F ather: [...] TOUCH GLUCOMETER DIRECTED USE DIRECTED , Taking Ubiquitous EnergyTouch Ultra 2 w/Device Kit as directed , [...] needed , Taking FreeStyle John 14 Day [place] - Device as directed , Taking FreeStyle John 2 Sensor - Miscellaneous USE DIRECTED (CHANGE EVERY 14 D AYS. , Taking OneTouch Delica Plus [id number] - Miscellaneous USE 4 TIMES DAILY , [...] Temp: 98.6, BP: 114/78, HR: 96, [facility], Ht: 63.50, BMI:23.12. * Examination: G eneral [...] * Images: Billing Information: * Visit Code: 53297 Office Visit, Est Pt., Level 3. * Procedure Codes: G2211 Complex e/m visit add on. G8420 BMI<30 AND >=22 CALC & DOCU. G8783 BP SCR PRFRM RCMDD DEFIND SCR INTVL. G8752 MOST RECENT SYSTOLIC BP < 140MM HG. G8754 MOST RECENT DIASTOLIC BP < 90MM HG. * Electronic signature of Samuel Gutierres MD on 04/11/2025 at 10:53 AM EDT Sign off status: Pending * Provider: Samuel Gutierres M.D. Date: 0 12/30/2024 Generated for Leanne mccracken/Mendy/Suki on: 0 04/11/2025 10:53 AM EDT History and Physical Notes * Examination [...]
--- OUTSIDE RECORDS SUMMARY | 2025-01-25 10:15 | XMS_ITS ---
[facility] [address] [facility] [address] [place] [id number] Care Team Providers Care University Administrative Assistant Name Role Phone Samuel Gutierres Primary Care [...] AYS.; Duration: 28 Active OneTouch Delica Plus [id number] - USE 4 TIMES DAILY; Duration: 25 Active Acetaminophen 325 mg TAKE TWO TABLETS BY MOUTH EVERY 6 HOURS NEEDED; Duration: 13 Active Fluticasone Propionate 50 MCG/ACT 2 spray in each nostril Nasally once a day as needed 10/07/2024 Active FreeStyle John 14 Day Universal - as directed Active Gabapentin 800 MG [...] 4 TIMES DAILY DIRECTED. Active Vital Signs Blood pressure systolic 120 mm Hg 01/26/20 25 Blood pressure diastolic 70 mm Hg 025 Heart Rate 91 /min 01/25/2025 Height 63.50 in 01/25/2025 Weight 131.6 lbs 01/25/2025 BMI 22.94 kg/m2 01/25/2025 Encounters Encounter Location Date Provider Diagnosis [facility] [address] [facility] [address] [place], [place] [id number] 01/25/2025 Samuel Gutierres Acute tonsillitis, unspecified J03.90 ; Intractable periodic headache syndrome G43.C1 and BMI 22.0-22.9, adult Z68.22 Assessments Encounter Date Diagnosis (ICD Code) Assessment Notes Treatment Notes Treatment Clinical Notes Section Notes 01/25/2025 Acute tonsillitis, unspecified (ICD-10 - J03.90) 01/25/2025 Intractable periodic headache syndrome (ICD-10 - G43.C1) Order provided for injection of Stadol 3 mg and Phenergan 50 mg IM at [facility] today. Continue with plan of care [...] mg and Phenergan 50 mg IM at [facility] today. Next Appt Details Follow Up: 4 Weeks, Reason: Progress Notes * JESUS MANUEL PITTMANADOB:1965 (60 yo F)Acc No.[id number]:01/25/2025 Progress Notes Patient: JACI HERNANDEZ Provider: Samuel Gutierres M.D. :1965 A ge:59 Y S ex:Female Date:01/25/2025 [id number] Subjective: * Chief Complaints: * 1 . [...] She has left the residential facility in [place] and is now living with a friend, [...] Dr. Barahona 03/25/2017, ORIF R ankle fx/ [facility] 06/2023, Explant of screws from right ankle/ [facility] 07/2023. * Family History: F ather: [...] TOUCH GLUCOMETER DIRECTED USE DIRECTED , Taking Engiver Ultra 2 w/Device Kit as directed , [...] needed , Taking FreeStyle John 14 Day Universal - Device as directed , Taking FreeStyle John 2 Sensor - Miscellaneous USE DIRECTED (CHANGE EVERY 14 D AYS. , Taking OneTouch Delica Plus [id number] - Miscellaneous USE 4 TIMES DAILY , [...] headache syndrome - G43.C1 3 . B MA 22.0-22.9, adult - Z68.22 ? Plan: * Treatment: 2. I ntractable periodic headache syndrome Notes: Order provided for injection of Stadol 3 mg and Phenergan 50 mg IM at [facility] today. Clinical Notes: Continue with plan [...] * Images: Billing Information: * Visit Code: 16668 Office Visit, Est Pt., Level 3. * [...] 0 01/25/2025 Generated for Leanne mccracken/Mendy/eTjalilsmitting on: 0 04/11/2025 10:53 AM EDT History and Physical Notes * HPI [...]
--- NOTE | 2025-04-11 10:53 | US_ITS ---
FINAL REPORT TECHNIQUE: Sonographic images of the thyroid gland were obtained in the longitudinal and transverse planes. CLINICAL HISTORY: GOITER COMPARISON: None FINDINGS: The right lobe measures 2.2 x 5.1 x 2.6 cm. There are 3 mixed cystic and solid lesions with the largest measuring 30 mm, all compatible with TR 3 lesions. The left lobe measures 1.7 x 4.2 x 2.0 cm. Multiple nodules are noted. 13 mm nodule in the upper pole with more central hypoechoic nodule is consistent with a TR 4 lesion. Mixed cystic and solid 16 mm TR 3 lesion. Several additional mixed cystic and solid nodules in the lower pole. The isthmus measures 4 mm. This is normal. IMPRESSION: Bilateral thyroid nodules favored to represent multinodular goiter. 30 mm TR 3 nodule on the right. Recommend FNA per TI-RADS criteria. Bilateral nodules should be followed based on size and TI-RADS criteria. Reviewed, Interpreted and Dictated by Destiney Card MD Transcribed by Ami Amanda Authenticated and [facility]
--- OUTSIDE RECORDS SUMMARY | 2025-04-11 10:53 | XMS_ITS | Encounter Summary ---
Author Organization [facility] Address [address] [place] [address] Care Team Providers Care Software Systems Analyst Name Role Phone Vasu Gutierres MD Primary Care Provider +1- [phone] Encounter Details Date Type Department Care Team (Late st Contact Info) Description 03/08/2025 Telephone [facility] In[facility] 800 [facility] [address] [place] [address] Sophie Gentile APRN [address] [address] Social History Tobacco Use Types Packs/Day Years [...] an appointment for Vyepti infusion on 03/09/25. CULINARY WORKER called patient to complete pre-infusion screening questions. Unable to speak with patient. Left voicemail to remind patient of appt date, time, and location. Duration of phone call: 1 minute Sophie Gentile APRN [facility] documented in this encounter Plan of Treatment Upcoming Encounters Date Type Department Care Team (Late st Contact Info) Description 05/04/2025 12:30 PM EDT Office Visit [place] [facility] [address], [address] [place] [address] Sweetie Hewitt PA [address] [place] [address] 06/01/2025 11:00 AM EST Appointment [facility] [address] [place] [address] documented as of this encounter Visit Diagnoses Not on filedocumented in this encounter Additional Health Concerns Assessment Noted Time A fall risk assessment has been complete d for the patient 12/02/2024 10:04 AM EDT A Body Mass Index follow-up plan has been documented for the patient 12/02/2024 10:09 AM EDT documented as of this encounter Care Teams Software Systems Analyst Relationship Specialty Start Date End Date Vasu Gutierres MD [address] [place] [address] PCP - General 05/19/24 documented as of this encounter
--- OUTSIDE RECORDS SUMMARY | 2025-04-11 10:53 | XMS_ITS | Encounter Summary ---
Author Organization Healthcare Address [address] [place] [address] Care Team Providers Care Keeper Head Name Role Phone Vasu Gutierres MD Primary Care Provider +1- [phone] Reason for Visit * Reason Onset Date Comments Vyepti rescheduling 03/28/2025 Encounter Details Date Type Department Care Team (Late Contact Info) Description 03/28/2025 Telephone [facility] Infusion [address] [place] [address] Michelle Monroe, PharmD Vyepti rescheduling Social History Tobacco Use Types Packs/Day Years [...] Encounters Date Type Department Care Team (Late Contact Info) Description 05/04/2025 12:30 PM EDT Office Visit [place] [facility] [address], [address] [place] [address] Sweetie Hewitt, MECHE [address] [place] [address] 06/01/2025 11:00 AM EST Appointment [facility] 800 [facility] [address] [place] [address] documented as of this encounter Visit Diagnoses Not on filedocumented in this encounter Additional Health Concerns Assessment Noted Time A fall risk assessment has been complete d for the patient 12/02/2024 10:04 AM EDT A Body Mass Index follow-up plan has been documented for the patient 12/02/2024 10:09 AM EDT documented as of this encounter Care Teams Keeper Head Relationship Specialty Start Date End Date Vasu Gutierres MD [address] [place] [address] PCP - General 05/19/24 documented as of this encounter
--- OUTSIDE RECORDS SUMMARY | 2025-04-11 10:53 | XMS_ITS | Encounter Summary ---
Author Organization [facility] Address [address] [place] [address] Care Team Providers Care Behavioral Health Technician Name Role Phone Vasu Gutierres MD Primary Care Provider +1- [phone] Encounter Details Date Type Department Care Team (Late st Contact Info) Description 02/23/2025 Telephone [facility] 800 [facility] [address] [place] [address] Nilda Love APRN [address] [place] [address] Social History Tobacco Use Types Packs/Day Years [...] Visit [place] [facility] [address], [address]st [place] [address] Sweetie Hewitt, MECHE [address] [place] [address] 06/01/2025 11:00 AM EST Appointment [facility] [address] [place] [address] documented as of this encounter Visit Diagnoses Not on filedocumented in this encounter Additional Health Concerns Assessment Noted Time A fall risk assessment has been complete d for the patient 12/02/2024 10:04 AM EDT A Body Mass Index follow-up plan has been documented for the patient 12/02/2024 10:09 AM EDT documented as of this encounter Care Teams Behavioral Health Technician Relationship Specialty Start Date End Date Vasu Gutierres MD [address] [place] [address] PCP - General 05/19/24 documented as of this encounter
--- OUTSIDE RECORDS SUMMARY | 2025-04-11 10:53 | XMS_ITS | Encounter Summary ---
Author Organization Healthcare Address [address] [place] [address] Care Team Providers Care Collections Curator Name Role Phone Vasu Gutierres MD Primary Care Provider +1- [phone] Reason for Visit * Reason Onset Date Comments HCN - Patient Message 02/10/2025 Reschedule Encounter Details Date Type Department Care Team (Late st Contact Info) Description 02/10/2025 Telephone [place] [facility] [address], [address] [place] [address] Sweetie Hewitt, PA [address] [place] [address] HCN - Patient Message (Reschedule [...] for Call: Patient is calling back to You[employer]oodle appt. Best contact number and optimal time of day to reach caller: [phone] anytime Note: Please do not reply to [...] Reason for Call: Patient calling to r/s Ankeena [employer] appt Best contact number and optimal time of day to reach caller: [phone] or [phone] Note: Please do not reply to this message. Follow-up communication and further actions as a result of this message need to be communicated with the patient directly, if the patient is not active onMyChart. If the patient is active on MyChart, they will receive notification of the communication/outcome via QuantiaMDhart. documented in this encounter Plan of Treatment Upcoming Encounters Date Type Department Care Team (Late st Contact Info) Description 05/04/2025 12:30 PM EDT Office Visit [place] [facility] [address] [place] [address] Sweetie Hewitt, MECHE [address] [place] [address] 06/01/2025 11:00 AM EST Appointment [facility] [address] [place] [address] documented as of this encounter Visit Diagnoses Not on filedocumented in this encounter Additional Health Concerns Assessment Noted Time A fall risk assessment has been complete d for the patient 12/02/2024 10:04 AM EDT A Body Mass Index follow-up plan has been documented for the patient 12/02/2024 10:09 AM EDT documented as of this encounter Care Teams Collections Curator Relationship Specialty Start Date End Date Vasu Gutierres MD [address] [place], [place] [address] PCP - General 05/19/24 documented as of this encounter
--- OUTSIDE RECORDS SUMMARY | 2025-04-11 10:53 | XMS_ITS | Encounter Summary ---
Author Organization [facility] Address [address] [place] [address] Care Team Providers Care Hospice Consultant Name Role Phone Vasu Gutierres MD Primary Care Provider +1- [phone] Encounter Details Date Type Department Care Team (Late st Contact Info) Description 03/10/2025 Telephone [facility] 800 [facility] [address] [place] [address] Sophie Gentile APRN [address] [address] Social History Tobacco Use Types Packs/Day Years [...] an appointment for Vyepti infusion on 03/11/25. SURGICAL SPECIALIST called patient to complete pre-infusion screening questions. Unable to speak with patient. Left voicemail to remind patient of appt date, time, and location. Duration of phone call: 1 minute Sophie Gentile APRN [facility] documented in this encounter Plan of Treatment Upcoming Encounters Date Type Department Care Team (Late st Contact Info) Description 05/04/2025 12:30 PM EDT Office Visit [place] [facility] [address], [address] [place] [address] Sweetie Hewitt PA [address] [place] [address] 06/01/2025 11:00 AM EST Appointment [facility] [address] [place] [address] documented as of this encounter Visit Diagnoses Not on filedocumented in this encounter Additional Health Concerns Assessment Noted Time A fall risk assessment has been complete d for the patient 12/02/2024 10:04 AM EDT A Body Mass Index follow-up plan has been documented for the patient 12/02/2024 10:09 AM EDT documented as of this encounter Care Teams Hospice Consultant Relationship Specialty Start Date End Date Vasu Gutierres MD [address] [place] [address] PCP - General 05/19/24 documented as of this encounter
--- OUTSIDE RECORDS SUMMARY | 2025-04-11 10:54 | XMS_ITS | Encounter Summary ---
Author Organization [facility] Address [address] [place] [address] Care Team Providers Care Reduction Furnace Operator Name Role Phone Vasu Gutierres MD Primary Care Provider Encounter Details Date Type Department Care Team (Late st Contact Info) Description 02/11/2024 Telephone [facility] [address] [facility] [address] [place] [address] Danis Chaidez, PT [address] [facility] [address] [place], [place] [id number] Social History Tobacco Use Types Packs/Day Years Used Date Smoking Tobacco: Former Cigarettes Q uit: 07/17/2023 Passive Smoke Exposure: Current Smokeless Tobacco: Never Alcohol Use Standard Drinks/Week Comments Never 0 (1 standard drink = 0.6 oz pur e alcohol) [facility] Utilities Answer Date Recorded In the past 12 months has [employer], gas, oil, or water [employer] threatened to shut off services in your [...] and heating? Not hard at all 08/25/2023 [facility] [place] [facility] Occup[facility] - Occupational Stress [...] Description 10/07/2025 11:00 AM EDT Office Visit [facility] [address] [place] [address] Cheo Fu MD [address]60 [facility] [address] [place] [address] documented as of this encounter Visit Diagnoses Not on filedocumented in this encounter Additional Health Concerns Infection Onset Date Last Indicated Resolved Time COVID (rule out) 09/02/2024 09/02/2024 09/02/2024 10:52 AM EST Influenza 09/02/2024 09/02/2024 10/02/2024 9:08 PM EDT documented as of this encounter Care Teams Reduction Furnace Operator Relationship Specialty Start Date End Date Vasu Gutierres MD [address] [facility] [address] [place] [address] PCP - General Family Medicine 03/05/23 documented as of this encounter
--- OUTSIDE RECORDS SUMMARY | 2025-04-11 10:54 | XMS_ITS | Encounter Summary ---
Author Organization Healthcare Address [address] [place] [address] Care Team Providers Care Utility Bag Assembler Name Role Phone Pcp, No Primary Care Provider Vasu Be MD Primary Care Provider +1- [phone] Reason for Referral * Consultation (Routine) - Closed Specialty Diagnoses / Procedures Referred By Contac t Referred To Contact Neurology Diagnoses Chronic intractable headache, unspecified headache type Tardive dyskinesia History of drug abuse History of stroke Major depression in remission (CMS/[facility]) Mira Dolan MD [address] [place] [address] [place] [address] Phone: tel: fax: Luis Armando Weeks MD [address] [facility] [address] [place] [address] Phone: tel: fax: Referral ID Status Reason Start Date Expiration Date V isits Requested Visits Authorized [id number] Closed Specialty Services Required 03/05/2022 09/04/2023 1 1 Encounter Details Date Type Department Care Team (Late st Contact Info) Description 03/05/2022 [facility] [address] [place] [address] Mira Dolan MD [address] [facility] [address] [place] [address] Chronic intractable headache, unspecified headache type [...] Visit [place] [facility] [address], [address] [place] [address] Sweetie Hewitt PA [address] [place] [address] 06/01/2025 11:00 AM EST Appointment [facility] 800 [facility] [address] [place] [address] Scheduled Referrals Name Type Priority Associated Diagnoses [...] remission documented in this encounter Care Teams Utility Bag Assembler Relationship Specialty Start Date End Date Pcp, No [address] [place] [address] PCP - General Family Medicine 06/04/23 05/18/24 Vasu Gutierres MD [address] [place] [address] PCP - General 05/19/24 documented as of this encounter
--- OUTSIDE RECORDS SUMMARY | 2025-04-11 10:54 | XMS_ITS | Clinical Summary ---
Author Organization [facility] Address [address] [place] [address] Care Team Providers Care Steamboat Inspector Name Role Phone Vasu Gutierres MD Primary Care Provider +1- [phone] Allergies Active Allergy Reactions Criticality Noted Date [...] (one) time each day. Active Continuous Glucose Quarter Doper (VeveoStyle John 14 Day [place]) device 3 Active Continuous Glucose Sensor (FreeStyle John 2 Sensor) [facility] USE DIRECTED (CHANGE EVERY 14 D AYS. [...] mouth 3 (three) times a day. Active Tonic HealthTouch Ultra Test test strip USE TO TEST 4 TIMES DAILY DIRECTED. Active hydrOXYzine pamoate (Vistaril) 25 MG capsule 4 Active Levemir FlexPen 100 UNIT/ML injection pen 4 Active BD Pen Needle Micro U/F 32G X 6 MM misc 2 (two) times a day. as directed 4 Active Lancets (OneTouch Delica Plus [id number]) misc 4 (four) times a day. 4 [...] Encounters Date Type Department Care Team Description 03/28/2025 Telephone [facility] Infusion [address] [place] [address] Michelle Monroe, PharmD Vyepti rescheduling 03/10/2025 Telephone [facility] [address] [address] Sophie Gentile, BAR EXAMINER 03/08/2025 Telephone [facility] [address] [address] Sophie Gentile, BAR EXAMINER 02/23/2025 Telephone [facility] [address] [place] [address] Nilda Love APRN 02/10/2025 Telephone [place] [facility] [address], [address] [place] [address] Sweetie Hewitt, MECHE HCN - Patient Message (Reschedule ) from Last 3 Months Immunizations Immunization Administration [...] Visit [place] [facility] [address], [address] [place] [address] Sweetie Hewitt, MECHE [address] [place] [address] 06/01/2025 11:00 AM EST Appointment [facility] [address] [place] [address] Health Maintenance Due Date Last Done Comments [...] of 2 - PCV) 10/25/2020 10/26/2019, 04/18/2014 [id number] Vaccine (3 - season) 2025 05/26/2021, 10/21/2020 [facility]-Influenza Vaccine (#1) 03/21/202504/02, 05/26/2021, [...] age to [place] [id number] [place] MEDIC[place] Care Teams Steamboat Inspector Relationship Specialty Start Date End Date Vasu Gutierres MD [address] [facility] [place] [address] [facility] - General 05/19/24
--- OUTSIDE RECORDS SUMMARY | 2025-04-11 10:54 | XMS_ITS | Clinical Summary ---
Author Organization [facility] Address [address] [place] [address] Phone Care Team Providers Care Summer Babysitter Name Role Phone Gilmar COFFEY, Luigi Huitron [...] right tibia, subsequent encounter Cellulitis, foot, right [id number] (SNOMED CT) 09/08 Active 09/08 Jaylene Mays Cellulitis of lower limb Infection, local skin/subcuta neous tissue [id number] (SNOMED CT) 09/08 Active 09/08 Jaylene Davon Localized infection of skin AND/OR subcutaneous tissue CKD III(document a or b) 188831072 (SNOMED CT) 09/08 Active 09/08 Jaylene Davon Chronic kidney disease stage 3A Acute renal failure with tubular necrosis [id number] 101 (SNOMED CT) 09/08 Active 09/08 Jaylene Davon Acute renal failure due to tubular necrosis Elevation of levels of liver transaminase levels 219548269 (SNOMED CT) 09/08 Active 09/08 Jaylene Davon Elevated level of transaminase and lactic acid dehydrogenase Alkaline phosphatase, elevated 028786072 (SNOMED CT) 09/08 Active 09/08 Jaylene Mays Alkaline phosphatase above reference range Anemia due to acute blood loss 842171071 ([facility] CT) 09/08 Active 09/08 Jaylene Mays Acute posthemorrhagic anemia Anemia in CKD D63.1 (ICD-10-CM) 09/08 Active 09/08 Jaylene Mays Anemia in chronic kidney disease DM Type II E11.9 (ICD-10-CM) 09/08 Active 09/08 Jaylene Mays Type 2 diabetes mellitus without complications Benign Essential Hypertension 56007328 ([facility]) 09/08 Active 09/08 Jaylene Mays Benign hypertension Medications Medication Instructions Start Date Stop Date Generic Name [facility] Provider [facility] 2G IV [id number] ALTO 09/15 aztreonam recon binta [facility] RN Cubicin RF (daptomycin) recon binta Cubicin 650mg IV [id number] ALTO 09/15 daptomycin [facility] RN NIFEDIPINE ER 30 MG [id number] Take 1 tablet by mouth once a day nifedipine 39202219904 Janay Manrique LISINOPRIL 40 MG TABS Take 1 tablet by mouth once a day lisinopril 40353386736 Janay Manrique QULIPTA 60 MG TABS Take 1 tablet by mouth atogepant 24027160555 Janay Manrique ACETAMINOPHEN 500 MG TABS Take 1 tablet by mouth every six hours as needed acetaminophen 18325461522 Janay Manrique insulin detemir (LEVEMIR) 100 UNIT/ML injection Inject 5 unit subcutaneously every morning as directed LEVEMIR Janay Manrique ACETAMINOPHEN 325 MG TABS Take 2 tablet by mouth every six hours as needed acetaminophen 05083307617 Janay Manrique HYDROXYZINE PAMOATE 25 MG CAPS Take 1 capsule by mouth three times a day as needed hydroxyzine pamoate 07214173927 Janay Manrique LEVETIRACETAM 500 MG TABS Take 1 tablet by mouth every twelve hours levetiracetam 65425884409 Janay Manrique ASPIRIN 325 MG TABS Take 1 tablet by mouth once a day aspirin 01066343280 Janay Manrique PEG 3350 17 GM PACK Take 17 gram by mouth once a day polyethylene glycol 3350 77357562480 Janay Manrique CYCLOBENZAPRINE HCL 5 MG TABS Take 1 tablet by mouth three times a day as needed cyclobenzaprine 51883263061 Janay Manrique ENOXAPARIN SODIUM 40 MG/0.4ML SOSY Inject 0.4 ml subcutaneously once a day as directed 11/02 enoxaparin 11131451613 Janay Manrique ATORVASTATIN CALCIUM 80 MG TABS Take 1 tablet by mouth every night atorvastatin 96147870547 Janay Manrique PROCHLORPERAZINE EDISYLATE 10 MG/2ML SOLN 2 ml every eight hours as needed prochlorperazine edisylate 32497248182 Janay Manrique INSULIN LISPRO 100 UNIT/ML SOLN Inject 2-7 unit subcutaneously four times a day as directed insulin lispro 24747719485 Janay Manrique SENNOSIDES-DOCUSAT E SODIUM 8.6-50 MG TABS Take 2 tablet by mouth twice a day as needed sennosides-docusa te sodium 01617105064 Janay Manrique PROMETHAZINE HCL 25 MG TABS Take 1 tablet by mouth every six hours as needed promethazine 45863224406 Janay Manrique Valbenazine Tosylate 80 MG capsule Take 1 capsule by mouth once a day Valbenazine Tosylate 80 MG capsule Janay Manrique TRAZODONE HCL 150 MG TABS Take 3 tablet by mouth every night trazodone 49228454443 Janay Manrique DOCUSATE SODIUM 100 MG CAPS Take 1 capsule by mouth twice a day 09/18 docusate sodium 73679174662 Janay Manrique OMEPRAZOLE 40 MG CPDR Take 1 capsule by mouth once a day omeprazole 75394617711 Janay Burton CETIRIZINE HCL 10 MG TABS Take 1 tablet by mouth once a day cetirizine 51891513491 Janay Manrique MELATONIN 5 MG TABS Take 1 tablet by mouth every night as needed melatonin 68275138889 Halcomfort Burton LIDOCAINE PAIN RELIEF MAX ST 4 % PTCH Place 1 patch once a day as directed lidocaine 09141790926 Janay Manrique DESVENLAFAXINE SUCCINATE ER 100 MG [id number] Take 2 tablet by mouth once a day desvenlafaxine succinate 05097543523 Janay Manrique DOXYCYCLINE HYCLATE 100 MG CAPS Take 1 capsule by mouth twice a day 09/28 doxycycline hyclate 00909967655 Janay Burton ALENDRONATE SODIUM 70 MG TABS Take 1 tablet by mouth once a week alendronate 45163862454 Janay Manrique Cubicin RF (daptomycin) recon soln Cubicin 650mg IV [id number] 09/15 daptomycin [facility] RN aztreonam recon solmeseret Aztreonam 2G IV [id number] 09/15 aztreonam recon soln [facility] RN Valbenazine Tosylate 80 MG capsule Take 1 capsule by mouth Daily. 09/15 Valbenazine Tosylate 80 MG capsule QIE qieuser TRAZODONE HCL 150 MG TABS Take 3 tablets by mouth Every Night. 09/15 trazodone 21398578662 QIE qieuser SENNOSIDES-DOCUSAT E SODIUM 8.6-50 MG TABS Take 2 tablets by mouth 2 (Two) Times a Day As Needed for Constipation. sennosides-docusa te sodium 96813263058 QIE qieuser PROMETHAZINE HCL 25 MG TABS Take 1 tablet by mouth Every 6 (Six) Hours As Needed for Nausea or Vomiting. 09/15 promethazine 62212089565 QIE qieuser PROCHLORPERAZINE EDISYLATE 10 MG/2ML SOLN Infuse 2 mL into a venous catheter Every 8 (Eight) Hours As Needed (headache/migrai ne (give with iv benadryl)). 09/15 prochlorperazine edisylate 66136227520 QIE qieuser PEG 3350 17 GM PACK Take 17 g by mouth Daily. 09/15 polyethylene glycol 3350 32996302393 QIE qieuser ONETOUCH ULTRA STRP null blood sugar diagnostic 40112548325 QIE qieuser OMEPRAZOLE 40 MG CPDR Take 1 capsule by mouth Daily. 09/15 omeprazole 42727000074 QIE qieuser NIFEDIPINE ER 30 MG [id number] Take 1 tablet by mouth Daily. 09/15 nifedipine 68442356601 QIE qieuser NICOTINE STEP 1 21 MG/24HR PT24 null nicotine 88322213588 QIE qieuser MELATONIN 5 MG TABS Take 1 tablet by mouth At Night As Needed (insomnia). 09/15 melatonin 49244576450 QIE qieuser LISINOPRIL 40 MG TABS Take 1 tablet by mouth Daily. 09/15 lisinopril 32564935782 QIE qieuser LIDOCAINE PAIN RELIEF MAX ST 4 % PTCH Place 1 patch on the skin as directed by provider Daily. Remove & Discard patch within 12 hours or as directed by 09/15 lidocaine 84181677005 QIE qieuser LEVETIRACETAM 500 MG TABS Take 1 tablet by mouth Every 12 (Twelve) Hours. 09/15 levetiracetam 28044626453 QIE qieuser ONETOUCH DELICA PLUS [id number] null lancets 17106033915 QIE qieuser INSULIN LISPRO 100 UNIT/ML SOLN Inject 2-7 Units under the skin into the appropriate area as directed 4 (Four) Times a Day Before Meals & at Bedtime. 09/15 insulin lispro 49327657776 QIE qieuser insulin detemir (LEVEMIR) 100 UNIT/ML injection Inject 5 Units under the skin into the appropriate area as directed Every Morning. 09/15 LEVEMIR QIE qieuser HYDROXYZINE PAMOATE 25 MG CAPS Take 1 capsule by mouth 3 (Three) Times a Day As Needed for Itching. 01/18 hydroxyzine pamoate 62672023517 QIE qieuser GABAPENTIN 400 MG CAPS Take 2 capsules by mouth Every 8 (Eight) Hours for 4 days. 09/08 gabapentin 31729714805 QIE qieuser ENOXAPARIN SODIUM 40 MG/0.4ML SOSY Inject 0.4 mL under the skin into the appropriate area as directed Daily for 60 days. 11/02 enoxaparin 02345233018 QIE qieuser DOXYCYCLINE HYCLATE 100 MG CAPS Take 1 capsule by mouth 2 (Two) Times a Day for 14 days. 09/28 doxycycline hyclate 96289087597 QIE qieuser DOCUSATE SODIUM 100 MG CAPS Take 1 capsule by mouth 2 (Two) Times a Day for 15 days. 09/18 docusate sodium 61584636260 QIE qieuser DESVENLAFAXINE SUCCINATE ER 100 MG [id number] Take 2 tablets by mouth Daily. 09/15 desvenlafaxine succinate 23243256871 QIE qieuser CYCLOBENZAPRINE HCL 5 MG TABS Take 1 tablet by mouth 3 (Three) Times a Day As Needed for Muscle Spasms. 01/18 cyclobenzaprine 74722735029 QIE qieuser CETIRIZINE HCL 10 MG TABS Take 1 tablet by mouth Daily. 09/15 cetirizine 56256551749 QIE qieuser ANTACID CALCIUM 500 MG CHEW null calcium carbonate 39658914469 QIE qieuser BD PEN NEEDLE MICRO ULTRAFINE 32G X 6 MM null pen needle, diabetic 52640031768 QIE qieuser ATORVASTATIN CALCIUM 80 MG TABS Take 1 tablet by mouth Every Night. 09/15 atorvastatin 78528127700 QIE qieuser QULIPTA 60 MG TABS Take 1 tablet by mouth. 09/15 atogepant 44561426085 QIE qieuser ASPIRIN 325 MG TABS Take 1 tablet by mouth Daily. 09/15 aspirin 07580481403 QIE qieuser ALENDRONATE SODIUM 70 MG TABS Take 1 tablet by mouth Every 7 (Seven) Days. 09/15 alendronate 84928715988 QIE qieuser ACETAMINOPHEN 500 MG TABS Take 1 tablet by mouth Every 6 (Six) Hours As Needed for Mild Pain. 09/15 acetaminophen 48298551941 QIE qieuser ACETAMINOPHEN 325 MG TABS Take 2 tablets by mouth Every 6 (Six) Hours As Needed for Mild Pain. 09/15 acetaminophen 86537541986 QIE qieuser Medications Administered No information available. [...] Procedures Code Procedure Name Date Entry Date [id number] CBC with Differential 2023 CPT-07198 C- reactive protein CPT-sl STAT Labs [id number] CBC with Differential 2023 CPT-58126 C- reactive protein [id number], [id number] CPK CPT-99274 Sedimentation Rate (ESR) 202 10/20/22 CPT-65914 CMP Vital Signs Date Name Value Unit [...]
--- OUTSIDE RECORDS SUMMARY | 2025-04-11 10:54 | XMS_ITS | Clinical Summary ---
Author Organization [facility] Address [address] [place] [address] Care Team Providers Care Vice Squad Police Officer Name Role Phone Vasu Gutierres MD Primary [...] Needle Micro U/F 32G X 6 MM [facility] 3 Active Lancets (OneTouch Delica Plus [id number]) [facility] 3 Active nicotine (NICODERM CQ) 21 MG/24HR [...] 07/25/2023 Acute right-sided weakness 03/12/2023 0 03/13/2023 Social History Tobacco Use Types Packs/Day Years Used Date Smoking Tobacco: Former Cigarettes Q uit: 07/17/2023 Passive Smoke Exposure: Current Smokeless Tobacco: Never Tobacco Cessation:Counseling Given: No Alcohol Use Standard Drinks/Week Comments Never 0 (1 standard drink = 0.6 oz pur e alcohol) [facility] Utilities Answer Date Recorded In the past 12 months has [employer], gas, oil, or water [employer] threatened to shut off services in your [...] and heating? Not hard at all 08/25/2023 [facility] [place] of Occupat ional Health - Occupational Stress [...] Description 10/07/2025 11:00 AM EDT Office Visit [facility] [address] [place] [address] Cheo Fu MD [address] [address] Health Maintenance Due Date Last Done Comments [...] WELLNESS VISIT 05/21/2023 HEPATITIS C SCREENING 05/21/2023 HEMOGLOBIN A1C 06/30/2024 12/30/2023, 07/22, 06/09/2023, Additional history exists LIPID PANEL 12/29/2024 12/30/2023, 05/22, 03/13/2023, Additional history exists INFLUENZA VACCINE 02/18/2025 04/02/2022, , 10/26/2019, Additional history exists TDAP/TD VACCINES (2 - Td or Tdap) 07/10/2027 017 Medical Devices Implanted Type Area Stock Broker Device Identifier Shelf Expiration Date Model / Serial / Lot Scrw Yunior Lp Ss 3.5x32mm - [id number] Implanted:Qty: 1 on 07/22/2023 by Cheo Fu MD at [facility] Implant Right: Ankle ARTHREX [id number] / / Plt Hk Medl Ss 5h - [id number] Implanted:Qty: 1 on 07/22/2023 by Cheo Fu MD at [facility] Implant Right: Ankle ARTHREX [id number] / / Scrw Yunior Lp Ss 3.5x26mm - [id number] Implanted:Qty: 1 on 07/22/2023 by Cheo Fu MD at [facility] Implant Right: Ankle ARTHREX [id number] / / Scrw Josiah Lp Thrd/Shrt Ss 4x42mm - [id number] Implanted:Qty: 1 on 07/22/2023 by Cheo Fu MD at [facility] Implant Right: Ankle ARTHREX [id number] / / Plt Dist Ankl Lk 6h 104mm Rt - [id number] Implanted:Qty: 1 on 07/22/2023 by Cheo Fu MD at [facility] Implant Right: Ankle ARTHREX [id number] / / Scrw Yunior Lp Ss 3.5x50mm - [id number] Implanted:Qty: 1 on 07/22/2023 by Cheo Fu MD at [facility] Implant Right: Ankle ARTHREX [id number] / / Scrw Yunior Lp Ss 3.5x42mm - [id number] Implanted:Qty: 1 on 07/22/2023 by Cheo Fu MD at [facility] Implant Right: Ankle ARTHREX [id number] / / Scrw Compr Kreulock Lk Ful/Thrd Ss 2.7x12mm - [id number] Implanted:Qty: 1 on 07/22/2023 by Cheo Fu MD at [facility] Implant Right: Ankle ARTHREX [id number] / / Scrw Compr Kreulock Lk Ful/Thrd Ss 2.7x16mm - [id number] Implanted:Qty: 3 on 07/22/2023 by Cheo Fu MD at [facility] Implant Right: Ankle ARTHREX [id number] / / Scrw Yunior Lp Ss 3.5x12mm - [id number] Implanted:Qty: 3 on 07/22/2023 by hCeo Fu MD at [facility] Implant Right: Ankle ARTHREX [id number] / / Gw Troc Tp 1.87w217tn - [id number] Implanted:Qty: 2 on 07/22/2023 by Cheo Fu MD at [facility] Implant Right: Ankle ARTHREX [id number] / / Explanted Type Area Stock Broker Device Identifier Shelf Expiration Date Model / Serial / Lot Scrw Yunior Lp Ss 2.7x16mm - [id number] Explanted:Qty: 1 on 07/22/2023 by Cheo Fu MD at [facility] Implant Right: Ankle ARTHREX [id number] / / Scrw Yunior Lp Ss 2.7x18mm - [id number] Explanted:Qty: 1 on 07/22/2023 by Cheo Fu MD at [facility] Implant Right: Ankle ARTHREX [id number] / / Procedures Procedure Name Priority Date/Time Associated Diagnosis Comments HEMOGLOBIN A1C STAT 12/30/2023 11:38 AM EDT Diabetic polyneuropathy associated with other specified diabetes mellitus Hyperlipidemia, unspecified hyperlipidemia type LIPID PANEL Routine 12/30/2023 11:38 AM EDT Diabetic polyneuropathy associated with other specified diabetes mellitus Hyperlipidemia, unspecified hyperlipidemia type from Last 3 Months or Most Recently Relevant to Health Maintenance Results * (ABNORMAL) Hemoglobin A1c (12/30/2023 11:38 AM EDT) Pathologist [facility] Hemoglobin A1C 7.90(H) 4.80 - 5.60 % 12/30/2023 2:09 PM EDT [facility] Blood Venipuncture / Unknown 12/30/2023 11:38 AM EDT 12/30/2023 11:39 AM EDT Narrative [facility] - 12/30/2023 2:09 PM EDT Hemoglobin A1C Ranges: Increased Risk for Diabetes 5.7% to 6.4% Diabetes >= 6.5% Diabetic Goal < 7.0% Vasu Gutierres MD LAB BLOOD ORDERABLES F inal Result [facility]
[address] [place] [address], * (ABNORMAL) Lipid Panel (12/30/2023 11:38 AM EDT) Total Cholesterol 145 0 - 200 mg/dL 12/30/2023 7:13 PM EDT [facility] Triglycerides 86 0 - 150 mg/dL 12/30/2023 7:13 PM EDT [facility] HDL Cholesterol 62(H) 40 - 60 mg/dL 12/30/2023 7:13 PM EDT [facility] LDL Cholesterol 67 0 - 100 mg/dL 12/30/2023 7:13 PM EDT [facility] VLDL Cholesterol 16 5 - 40 mg/dL 12/30/2023 7:13 PM EDT [facility] LDL/HDL Ratio 1.06 12/30/2023 7:13 PM EDT [facility] Blood Venipuncture / Unknown 12/30/2023 11:38 AM EDT 12/30/2023 11:39 AM EDT Narrative [facility] - 12/30/2023 7:13 PM EDT [...] MD LAB BLOOD ORDERABLES F inal Result [facility]
[address] [place] [address], [place] [phone] from Last 3 Months or Most Recently Relevant to Health Maintenance Insurance [facility] MEDICARE ADVANTAGE SNP PPO Advance Directives [...] or is breathing): Full Support Care Teams Vice Squad Police Officer Relationship Specialty Start Date End Date Vasu Gutierres MD [address] [place] [address] PCP - General Family Medicine 03/05/23
== END 2025-04-11 23:59 | disposition home or self-care (01) ==
LOC: RAD 10:50
PROVIDERS: PCP Nurse Practitioner Family; Visit Provider Nurse Practitioner Family
DX: E04.2 Nontoxic multinodular goiter
CPT/HCPCS: 76536

== ENCOUNTER 2025-04-19 16:42 | Outpatient (CLI) | payer MEDICARE, MEDICAID, SELFPAY ==
--- OUTSIDE RECORDS SUMMARY | 2024-08-27 04:00 | XMS_ITS | Continuity of Care Document ---
Author Organization [facility] Address [address] [place] [address] Phone Care Team Providers Care Physical Therapist Clinic Director Name Role Phone JAMAR ZAMORA MD Unavailable [...] Diagnoses Date Provider Providers Copied on Encounter [facility], [facility], [address] [place] [address], [id number], tel:[phone] [place] OFFICE IDDM (chief complaint)PC O (chief complaint)PV D (chief complaint)op tic disc cupping (chief complaint) Type 1 diabetes mellitus without complication sOther secondary cataract, bilateralVit reous degeneration , left eyeGlaucomat ous optic atrophy, right eye 5 SERA MESSER. [address] [place] [address], [id number], [place]. tel:[phone] Specialist : Dang García MD, [address] [facility] [address], [place], [address]. tel:[phone] OFFICE/OUTPA TIENT VISIT, EST [facility], [facility], [address] [place] [address], [id number], tel:[phone] [place] OFFICE PVD f/u OS (chief complaint) Vitreous degeneration , left eyeOther secondary cataract, bilateral 4 ZINA CHANDLER. [address] [place] [address], [id number], [place]. tel:[phone] [facility], [address] [place] [address], [id number], [place] tel:[phone] [place] [address] OFFICE EOV (chief complaint) Vitreous degeneration , left eye - 4 ZINA CHANDLER. [address] [place] [address], [id number], [place]. tel:[phone] [place] [address] [facility], [address] [place] [address], [id number], [place] [phone] [place] [address] OFFICE Diabetic Eye Exam (chief complaint)PC O (chief complaint)di sc cupping (chief complaint) Type 1 diabetes mellitus without complication sOther secondary cataract, bilateralGla ucomatous optic atrophy, right eye 3 ZAMORA JAMAR. [address] [place] [address], [id number], [place]. tel:[phone] Specialist : Dang García MD, [address] [facility] [address], [place], [address]. tel:[phone] [facility], [facility], [address] [place] [address], [id number], [place] tel:[phone] [place] [address] OFFICE Full Exam (chief complaint)Di abetes (chief complaint) Type 1 diabetes mellitus without complication sGlaucomatou s optic atrophy, right eyeOther secondary cataract, bilateral May- 2 ZAMORA JAMAR. [address] [place] [address], [id number], [place]. tel:[phone] [place] [address] [facility], [address] [place] [address], [id number], [place] tel:[phone] [place] [address] OFFICE Diabetic exam (chief complaint)Co vid screening negative (chief complaint) Type 1 diabetes mellitus without complication sOther secondary cataract, bilateralGla ucomatous optic atrophy, right eye Oct- 1 ZAMORA JAMAR. [address] [place] [address], [id number], [place]. tel:[phone] [facility], [address] [place] [address], [address] [place] [address], tel:[phone] [place] [address] OFFICE Diabetes Examination (chief complaint)PC Fibrosis (chief complaint) Type 1 diabetes mellitus without complication sOther secondary cataract, bilateral 0 ZAMORA JAMAR. [address] [place] [address], [id number], [place]. [phone] [place] [address] [facility], [facility], [address] [place] [address], [address] [place] [address], tel:[phone] [place] [address] OFFICE IDDM (chief complaint)PC Fibrosis (chief complaint) Other secondary cataract, bilateralTyp e 1 diabetes mellitus without complication s 9 ZAMORA JAMAR. [address] [place] [address], [address] [place] [address], [place]. tel:[phone] [place] [address] [facility], [facility], [address] [place] [address], [address] [place] [address], tel:[phone] [place] [address] OFFICE NIDDM (chief complaint)PC Fibrosis (chief complaint) Type 2 diabetes mellitus without complication sOther secondary cataract, bilateral 9-201 8 ZAMORA JAMAR. [address] [place] [address], [id number], [place]. tel:[phone] [place] [address] [facility], [facility], [address] [place] [address], [address] [place] [address], tel:[phone] [place] [address] OFFICE Diabetes Examination (chief complaint)sh ooting pain (chief complaint)h/ o amblyopia (chief complaint) Diabetes Mellitus Type 2, Uncomplicate dAfter-catar act, obscuring visionLens replaced by other meansKeratoc onjunctiviti s sicca, not specified as sjogren's Mar-0 6-201 5 ZAMORA JAMAR. [address] [place] [address], [id number], [place]. tel:[phone] Family History Family Member Type Diagnosis Age [...] republican ID Authoriza tion(s) ANTH/Blue Cross Blue [facility] [id number] 2 Social History Type Description Quantity Date [...] secondary cataract, bilateral Return in 4 weeks [facility] Eliseo Guo M.D. for Follow up. [...]
--- OUTSIDE RECORDS SUMMARY | 2025-01-25 10:15 | XMS_ITS ---
[facility] [address] [facility] [address] [place] [id number] Care Team Providers Care Guide Cruise Name Role Phone Samuel Gutierres Primary Care Provider [phone] Allergies Allergen (clinical drug ingredient) Drug/Non Drug [...] itching Drug Allergy Active REASON FOR VISIT sore throat Medications Medication SIG (Take, Route, Frequency, Duration) [...] times a day, PRN 12/31/2022 Acti ve Qulipta 60 MG 1 tab(s) orally At B ed Time Active Desvenlafaxine ER 100 MG 1 tab(s) orally At Bed Time Active BD Pen Needle Micro U/F 32G X 6 MM USE DIRECTED TWICE DAILY.; Duration: 50 Active Glucerna Shake - 240 ml Orally once daily 04/22/20 24 Active Lisinopril 40 MG 1 tablet Orally Once a day; Duration: 30 day(s) Active tiZANidine HCl 4 MG 1 tablet Orally Thre e times a day Active Omeprazole 40 MG 1 cap(s) Orally once daily Active Melatonin 5 MG 1 tab Orally At Bed Time; Duration: 30 day(s) 10/07/2023 Active Lidocaine 4 % 1 patch Externally O nce a day prn 10/07/2023 Active NIFEdipine ER 30 MG 1 tab(s) Orally Once a day; Duration: 30 day(s) Active Cetirizine HCl 10 MG 1 tablet Orally onc e daily Active Aspirin 325 MG 1 tab(s) orally once a day; Duration: 30 day(s) Active Vistaril 25 MG 1 cap(s) orally thre e times a day as needed; Duration: 30 days Active traZODone HCl 150 MG 1 tab(s) orally onc e a day (at bedtime) Active Tums 500 MG 2 tablet Orally four times a day as needed 05/06/2023 Active ONE TOUCH GLUCOMETER DIRECTED USE DIRECTED 08/15/2021 Active OneTouch Ultra 2 w/Device as directed 12/31/2022 Active ONE TOUCH TEST STRIPS DIRECTED TESTS FOUR TIMES A DAY 08/15/2021 Active Glucagon Emergency 1 MG as directed Injection 05/21 Active Keppra 500 MG 1 tablet Orally Two times a day Active Zithromax Z-Chuck 250 MG as directed Orally 01/26/20 25 Active Atorvastatin Calcium 80 MG 1 tab(s) oral ly once a day in the evening Active GLUCOMETER DIRECTED TEST QD 07/09/2021 Active Vyepti 100 MG/ML as directed Intravenous Active Farxiga 10 MG 1 tab(s) Orally once a day Active FreeStyle John 2 Sensor - USE DIRECT ED (CHANGE EVERY 14 D AYS.; Duration: 28 Active OneTouch Delica Plus [id number] - USE 4 TIMES DAILY; Duration: 25 Active Acetaminophen 325 mg TAKE TWO TABLETS BY MOUTH EVERY 6 HOURS NEEDED; Duration: 13 Active Fluticasone Propionate 50 MCG/ACT 2 spray in each nostril Nasally once a day as needed 10/07/2024 Active FreeStyle John 14 Day [place] - as directed Active Gabapentin 800 MG 1 tab(s) orally 3 ti mes a day; Duration: 30 day(s) 09/28/2024 Active Alendronate Sodium 70 mg Take 1 tablet o nce weekly 30 minutes before the first food, beverage or medicine of the day with plain water; Duration: 28 Active Ingrezza 80 MG 1 cap(s) orally At B ed Time Active OneTouch Ultra - USE TO TEST 4 TIMES DAILY DIRECTED. Active Vital Signs Weight 131.6 lbs 01/25/2025 Blood pressure systolic 120 mm Hg 01/26/20 25 Blood pressure diastolic 70 mm Hg 025 Heart Rate 91 /min 01/25/2025 Height 63.50 in 01/25/2025 BMI 22.94 kg/m2 01/25/2025 Encounters Encounter Location Date Provider Diagnosis [facility] [address] [facility] [address] [place], [place] [id number] 01/25/2025 Samuel Gutierres Acute tonsillitis, unspecified J03.90 ; Intractable periodic headache syndrome G43.C1 and BMI 22.0-22.9, adult Z68.22 Assessments Encounter Date Diagnosis (ICD Code) Assessment Notes Treatment Notes Treatment Clinical Notes Section Notes 01/25/2025 Acute tonsillitis, unspecified (ICD-10 - J03.90) 01/25/2025 Intractable periodic headache syndrome (ICD-10 - G43.C1) Order provided for injection of Stadol 3 mg and Phenergan 50 mg IM at [facility] today. Continue with plan of care as outlined by the [facility]. 01/25/2025 BMI 22.0-22.9, adult (ICD-10 - Z68.22) Plan Of Treatment Medication Medication Name Sig Start Date Stop Date Notes Zithromax Z-Chuck 250 MG as directed Orally 01/25/2025 Treatment Notes Assessment Notes Intractable periodic headache syndrome O rder provided for injection of Stadol 3 mg and Phenergan 50 mg IM at [facility] today. Next Appt Details Follow Up: 4 Weeks, Reason: Provider Name:Samuel Campbell et, 04/19/2025 04:00:00 PM, [address], [place], [id number], Progress Notes * WIL PITTMANB:1965 (60 yo F)Acc No.[id number]:01/25/2025 Progress Notes Patient: JACI HERNANDEZ Provider: Smauel Gutierres M.D. :1965 A ge:59 Y S ex:Female Date:01/25/2025 Address:[facility] [place], [id number] Subjective: * Chief Complaints: * 1 . Sore throat. * HPI: E NT/respiratory: 59 year old female presents with c/o sore throat f eels scratchy, swallowing painful, smoker, cough. Pt states its been going on 3 days and not getting any better. H PI: Patient is here today for P t states she has had a migraine for a week. . Pt sates she fell last night and hit her back of her head and back and left arm. Pt states she is hurting from falling last night. No loss of consciousness. P sychology: She has left the residential facility in [place] and is now living with a friend, Edna Tompkins, [place]. * ROS: D ERMATOLOGY: no R jennifer. [...] Dr. Barahona 03/25/2017, ORIF R ankle fx/ [facility] 06/2023, Explant of screws from right ankle/ [facility] 07/2023. * Family History: F ather: , [...] TOUCH GLUCOMETER DIRECTED USE DIRECTED , Taking Clip Interactive Ultra 2 w/Device Kit as directed , [...] needed , Taking FreeStyle John 14 Day [place] - Device as directed , Taking FreeStyle John 2 Sensor - Miscellaneous USE DIRECTED (CHANGE EVERY 14 D AYS. , Taking OneTouch Delica Plus [id number] - Miscellaneous USE 4 TIMES DAILY , [...] Side Effects. Objective: * Vitals: W t: 131.6, Temp: 000, BP: 120/70, HR: 91, Nurse: pe, Ht: 63.50, BMI:22.94. * Examination: G eneral Examination: General Appearance: S he is photophobic. H EENT: C ranium is atraumatic. Voice is hoarse. Throat is markedly red with white exudate.? TMs are normal.. N marco a: N o bony tenderness of the C-spine. No meningismus. Heart: R SR. L ungs: c lear to auscultation. E xtremities: F aint bruising of the left forearm. No deformity or swelling. Assessment: * Assessment: 1. A cute tonsillitis, unspecified - J03.90 (Primary) 2 . I ntractable periodic headache syndrome - G43.C1 3 . B KS 22.0-22.9, adult - Z68.22 ? Plan: * Treatment: 2. I ntractable periodic headache syndrome Notes: Order provided for injection of Stadol 3 mg and Phenergan 50 mg IM at [facility] today. Clinical Notes: Continue with plan of care as outlined by the [facility]. * Procedure Codes: G 2211 Complex e/m visit add on, G8783 BP SCR PRFRM RCMDD DEFIND SCR INTVL, G8752 MOST RECENT SYSTOLIC BP < 140MM HG, G8754 MOST RECENT DIASTOLIC BP < 90MM HG, G8420 BMI<30 AND >=22 CALC & DOCU * Follow Up: 4 Weeks * Images: Billing Information: * Visit Code: 03828 Office Visit, Est Pt., Level 3. * Procedure Codes: G2211 Complex e/m visit add on. G8783 BP SCR PRFRM RCMDD DEFIND SCR INTVL. G8752 MOST RECENT SYSTOLIC BP < 140MM HG. G8754 MOST RECENT DIASTOLIC BP < 90MM HG. G8420 BMI<30 AND >=22 CALC & DOCU. * Electronic signature of Samuel Gutierres MD on 04/19/2025 at 04:48 PM EDT Sign off status: Pending * Provider: Samuel Gutierres M.D. Date: 0 01/25/2025 Generated for Leanne mccracken/Mendy/Kanwalitting on: 0 04/19/2025 04:48 PM EDT History and Physical Notes * HPI (History of Present Illness) Category Sub-Category Detail Notes Category Not es ENT/respiratory sore throat feels scratchy, swallowing painful, smoker, cough. Pt states its been going on 3 days and not getting any better HPI Patient is here toda y for Pt states she has had a migraine for a week. . Pt sates she fell last night and hit her back of her head and back and left arm. Pt states she is hurting from falling last night. No loss of consciousness Examination Category Sub-Category Detail Notes Category Not es General Examination HEENT: Cranium is a traumatic. Voice is hoarse. Throat is markedly red with white exudate. TMs are normal. Heart: RSR Lungs: clear to auscultatio n Extremities: Faint bruising of th e left forearm. No deformity or swelling General Appearance: She is photophobic Neck: No bony tenderness o f the C-spine. No meningismus
--- OUTSIDE RECORDS SUMMARY | 2025-03-03 09:45 | XMS_ITS ---
Author Organization [facility] Address [address] [place] [id number] Care Team Providers Care Counter Top Assembler Name Role Phone Samuel Gutierres Primary Care Provider [phone] Allergies Allergen (clinical drug ingredient) Drug/Non Drug [...] 139 Performing Lab: Notes/Report: Test performed by [facility] [address] [place] [address] , [address], [place] [address] Augustus Lee MD, Senior Compliance Officer CLIA: [id number] Sodium 140 135-145 mmol/L Potassium 3.2 3.5-5.3 [...] Interpretation:Normal Performing Lab: Notes/Report: Test performed by [facility] [address] [place] [address] , [address], [place] [address] Augustus Lee MD, Senior Compliance Officer CLIA: [id number] Magnesium 1.6 1.6-2.4 mg/dL P-TSH Reviewed date:03/07/2025 10:11:20 AM Interpretation:0.18 Performing Lab: Notes/Report: Test performed by [facility] [address] [place] [address] , [address], [place] [address] Augustus Lee MD, Senior Compliance Officer CLIA: [id number] TSH 0.18 0.43-5.25 mU/L REASON FOR VISIT [...] Duration: 28 Active FreeStyle John 14 Day [place] - as directed Active Fluticasone Propionate 50 [...] W/U Status Risk Notes Problem Multinodular goiter (817598498) Multinodular goiter (E04.2) Active confirmed Vital Signs Weight 118.4 lbs 03/03/2025 Blood pressure systolic 118 mm Hg 03/03/20 25 Blood pressure diastolic 60 mm Hg 025 Height 63.50 in 03/03/2025 BMI 20.64 kg/m2 03/03/2025 Encounters Encounter Location Date Provider Diagnosis [facility] [address] [facility] [address] [place], [place] [id number] 03/03/2025 R Josh Gutierres Intractable periodic headache [...] mg and Phenergan 50 mg IM at [facility] today. Continue with plan of care [...] mg and Phenergan 50 mg IM at [facility] today. Next Appt Details Follow Up: via phone to repo rt test results, Reason: Provider Name:Samuel Woodward, 04/19/2025 04:00:00 PM, [address] [facility] [address] [facility], [address] [place] [address], [phone], Progress Notes * WIL PITTMANB:1965 (60 yo F)Acc No.[id number]:03/03/2025 Progress Notes Patient: JACI HERNANDEZ Provider: Samuel Gutierres M.D. :1965 A ge:60 Y S ex:Female Date:03/03/2025 Address:[facility] Subjective: * Chief Complaints: * 1 . Migraine. * HPI: N eurology: She presents with complaints of persistent migraine headache with nausea and mild photophobia for the past 4 days. She is scheduled for her next Vyepti injection in March. C onstitutional: Weight loss noted. She admits she is having difficulty caring for herself since leaving the assisted living facility in [place]. She is not eating properly. She does seem to be taking her medications as directed. She has difficulty with many activities of daily living. She is having a phone consultation with her litigation attorney associate this afternoon to help with possible other [...] Dr. Barahona 03/25/2017, ORIF R ankle fx/ [facility] 06/2023, Explant of screws from right ankle/ [facility] 07/2023. * Family History: F [...] needed , Taking FreeStyle John 14 Day [place] - Device as directed , Taking FreeStyle [...] G 2211 Complex e/[place] [address] CBC WITH AUTO DIFF, 26162 GLYCATED HEMOGLOBIN TEST, Modifiers: QW , 3044F HG A1C LEVEL LT 7.0%, G8950 PREHTN/HTN BP DOC INDCD F/U DOC, G8752 MOST RECENT SYSTOLIC BP < 140MM HG, G8754 MOST RECENT DIASTOLIC BP < 90MM HG * Follow Up: v ia phone to report test results * Images: Billing Information: * Visit Code: 88031 Office Visit, Est Pt., Level 3. * Procedure Codes: G2211 Complex e/[place]. [address] CBC WITH AUTO DIFF. 35470 GLYCATED HEMOGLOBIN TEST. Modifiers: QW 3044F HG A1C LEVEL LT 7.0%. G8950 PREHTN/HTN BP DOC INDCD F/U DOC. G8752 MOST RECENT SYSTOLIC BP < 140MM HG. G8754 MOST RECENT DIASTOLIC BP < 90MM HG. * Electronic signature of Samuel Gutierres MD on 04/19/2025 at 04:48 PM EDT Sign off status: Pending * Provider: Samuel Gutierres M.D. Date: 03/03/2025 Generated for Printi ng/Faxing/eTransmitting on: 04/19/2025 04:48 PM EDT History and Physical [...]
--- OUTSIDE RECORDS SUMMARY | 2025-03-07 06:03 | XMS_ITS ---
Author Organization [facility] Address [address] [facility] 36 [facility] [address] [place] [phone] Care Team Providers Care Eyeglass Lens Generator Name Role Phone Samuel Gutierres Primary Care Provider [phone] REASON FOR VISIT Test Results Problems Problem Type SNOMED Code ICD Code Onset Dates Problem Status W/U Status Risk Notes Problem Hyperthyroidism (10595206) Hyperthyroidism (E05.90) Active confirmed Encounters Encounter Location Date Provider Diagnosis Peggy [address] [facility] 36 [facility] [address] [place] [id number] 03/07/2025 Samuel Gutierres Hyperthyroidism E05. 90 and Multinodular goiter E04.2 Assessments Encounter Date Diagnosis (ICD Code) Assessment Notes Treatment Notes Treatment Clinical Notes Section Notes 03/07/2025 Hyperthyroidism (ICD-10 - E05.90) 03/07/2025 Multinodular goiter (ICD-10 - E04.2) Plan Of Treatment Pending Test Test Name Order Date Radioactive Iodine Uptake Scan (I-123) 0 03/07/2025 H-Thyroid panel 03/07/2025 H-Thyroid Peroxidase Antibodies 03/07/20 25 Next Appt Details Provider Name:Samuel Woodward, 04/19/2025 04:00:00 PM, [address] [facility] 36 [facility], [address], [place], [phone], Progress Notes * WIL PITTMANB:1965 (60 yo F)Acc No.[id number]:03/07/2025 Patient: Michel JACI PAYTON :1965 A ge:60 Y S ex:Female Address:[address] [place] [address] Subjective: * Chief Complaints: * T est [...] Date: Generated for Smithi nawaf/Mendy/eTransmitting on: 0 04/19/2025 04:48 PM EDT
--- OUTSIDE RECORDS SUMMARY | 2025-03-08 10:30 | XMS_ITS ---
[facility] [facility] [address] [place] [id number] Care Team Providers Care Wagon Driller Name Role Phone Samuel Gutierres Primary Care Provider [phone] Allergies Allergen (clinical drug ingredient) Drug/Non Drug [...] toenails, needs a H & P for usp admission Medications Medication SIG (Take, Route, Frequency, [...] Duration: 28 Active FreeStyle John 14 Day Dwarf - as directed Active Lidocaine 4 % [...] Problem Acquired hammer toe of left foot (1659505779250 103) Hammer toe of left foot (M20.42) Active confirmed Problem Acquired hammer toe of right foot (7177791179060 105) Hammer toe of right foot (M20.41) Active confirmed Problem Adult failure to thrive syndrome (589012092) Adult failure to thrive (R62.7) Active confirmed Vital Signs Weight 115.8 lbs 03/08/2025 Blood pressure systolic 112 mm Hg 03/08/20 25 Blood pressure diastolic 74 mm Hg 025 Heart Rate 105 /min 03/08/2025 Height 63.50 in 03/08/2025 BMI 20.19 kg/m2 03/08/2025 Encounters Encounter Location Date [facility] [address] [id number] 03/08/2025 Samuel Gutierres Type 2 diabetes sherlyn itus with diabetic polyneuropathy E11.42 ; Hammer toe of left foot M20.42 ; Hammer toe of right foot M20.41 ; Onychodystrophy L60.3 ; Hyperthyroidism E05.90 ; Weight loss R63.4 ; Adult failure to thrive R62.7 and BMI 20.0-20.9, adult Z68.20 Assessments Encounter Date Diagnosis (ICD Code) Assessment [...] Concur with need for long-term care placement 03/08/2025 BMI 20.0-20.9, adult (ICD-10 - Z68.20) Plan Of Treatment Medication Medication Name Sig [...] Details Follow Up: after tests, Reas on: Provider Name:Samuel Woodward, 04/19/2025 04:00:00 PM, [address] [facility] [address] [facility], [address], [place], [place], [id number], Progress Notes * WIL PITTMANB:1965 (60 yo F)Acc No.[id number]:03/08/2025 Extended Visit Patient: JACI HERNANDEZ Provider: Samuel Gutierres M.D. :1965 A ge:60 Y S ex:Female Date:03/08/2025 Address:[address] [place], [place] [address] Subjective: * Chief Complaints: * 1 . trim toenails, needs a H & P for usp admission. * HPI: H PI: She comes in today accompanied by her state hi lo driver who is trying to assist her with long-term care placement. Since being discharged from [facility] assisted care in [place], she has not done well from a [...] Dr. Barahona 03/25/2017, ORIF R ankle fx/ [facility] 06/2023, Explant of screws from right ankle/ [facility] 07/2023. * Family History: F ather: , [...] needed , Taking FreeStyle John 14 Day Dwarf - Device as directed , Taking FreeStyle [...] A dult failure to thrive - R62.7? 8. B NE 20.0-20.9, adult - Z68.20 Plan: * Treatment: 2. O nychodystrophy Notes: Both great toenails are debrided with the Dremel tool. Bilateral toenails 2 - 5 are trimmed with clippers. 3. H yperthyroidism Notes: Proceed with additional labs and thyroid scan as ordered. 4. A dult failure to thrive Notes: Concur with need for long-term care placement * Procedure Codes: G 2211 Complex e/m visit add on, G0127 TRIMMING DYSTROPHIC NAILS ANY #, 3044F HG A1C LEVEL LT 7.0%, G8420 BMI<30 AND >=22 CALC & DOCU, G8783 BP SCR PRFRM RCMDD DEFIND SCR INTVL, G8752 MOST RECENT SYSTOLIC BP < 140MM HG, G8754 MOST RECENT DIASTOLIC BP < 90MM HG, 51023 TRIM NAIL(S) * Follow Up: a fter tests * Images: Billing Information: * Visit Code: 72967 Office Visit, Est Pt., Level 3. Modifiers: 25 * Procedure Codes: G2211 Complex e/m visit add on. G0127 TRIMMING DYSTROPHIC NAILS ANY #. 3044F HG A1C LEVEL LT 7.0%. G8420 BMI<30 AND >=22 CALC & DOCU. G8783 BP SCR PRFRM RCMDD DEFIND SCR INTVL. G8752 MOST RECENT SYSTOLIC BP < 140MM HG. G8754 MOST RECENT DIASTOLIC BP < 90MM HG. 17910 TRIM NAIL(S). * Electronic signature of Samuel Gutierres MD on 04/19/2025 at 04:46 PM EDT Sign off status: Pending * Provider: Samuel Gutierres M.D. Date: 03/08/2025 Generated for Leanne mccracken/Mendy/Suki on: 0 04/19/2025 04:46 PM EDT History and Physical Notes * [...] in to day accompanied by her state hi lo driver who is trying to assist her with long-term care placement. Since being discharged from [facility] assisted care in [place], she has not done well from a [...]
--- OUTSIDE RECORDS SUMMARY | 2025-04-19 16:46 | XMS_ITS | Clinical Summary ---
Author Organization [facility] Address [address] [place] [address] Phone Care Team Providers Care Manager Ccu Name Role Phone Gilmar COFFEY, Luigi Huitron [...] right tibia, subsequent encounter Cellulitis, foot, right [id number] (SNOMED CT) 09/08 Active 09/08 Jaylene Mays Cellulitis of lower limb Infection, local skin/subcuta neous tissue 367617586 (SNOMED CT) 09/08 Active 09/08 Jaylene Davon Localized infection of skin AND/OR subcutaneous tissue CKD III(document a or b) 328797830 (SNOMED CT) 09/08 Active 09/08 Jaylene Davon Chronic kidney disease stage 3A Acute renal failure with tubular necrosis [id number] 101 (SNOMED CT) 09/08 Active 09/08 Jaylene Davon Acute renal failure due to tubular necrosis Elevation of levels of liver transaminase levels 278175405 (SNOMED CT) 09/08 Active 09/08 Jaylene Davon Elevated level of transaminase and lactic acid dehydrogenase Alkaline phosphatase, elevated 353833503 (SNOMED CT) 09/08 Active 09/08 Jaylene Mays Alkaline phosphatase above reference range Anemia due to acute blood loss 952524723 ([facility] CT) 09/08 Active 09/08 Jaylene Mays Acute posthemorrhagic anemia Anemia in CKD D63.1 (ICD-10-CM) 09/08 Active 09/08 Jaylene Mays Anemia in chronic kidney disease DM Type II E11.9 (ICD-10-CM) 09/08 Active 09/08 Jaylene Mays Type 2 diabetes mellitus without complications Benign Essential Hypertension [id number] ([facility]) 09/08 Active 09/08 Jaylene Mays Benign hypertension Medications Medication Instructions Start Date Stop Date Generic Name [facility] Provider [facility]onam 2G IV [id number] [place] 09/15 aztreonam recon binta [facility] RN Cubicin RF (daptomycin) recon binta Cubicin 650mg IV [id number] [place] 09/15 daptomycin [facility] RN NIFEDIPINE ER 30 MG [id number] Take 1 tablet by mouth once a day nifedipine 61734180405 Janay Manrique LISINOPRIL 40 MG TABS Take 1 tablet by mouth once a day lisinopril 18278730745 Janay Manrique QULIPTA 60 MG TABS Take 1 tablet by mouth atogepant 25077703733 Janay Manrique ACETAMINOPHEN 500 MG TABS Take 1 tablet by mouth every six hours as needed acetaminophen 48723709613 Janay Manrique insulin detemir (LEVEMIR) 100 UNIT/ML injection Inject 5 unit subcutaneously every morning as directed LEVEMIR Janay Manrique ACETAMINOPHEN 325 MG TABS Take 2 tablet by mouth every six hours as needed acetaminophen 89841009828 Janay Manrique HYDROXYZINE PAMOATE 25 MG CAPS Take 1 capsule by mouth three times a day as needed hydroxyzine pamoate 49927264888 Janay Manrique LEVETIRACETAM 500 MG TABS Take 1 tablet by mouth every twelve hours levetiracetam 64697722113 Janay Manrique ASPIRIN 325 MG TABS Take 1 tablet by mouth once a day aspirin 57505846625 Janay Manrique PEG 3350 17 GM PACK Take 17 gram by mouth once a day polyethylene glycol 3350 04428127873 Janay Manrique CYCLOBENZAPRINE HCL 5 MG TABS Take 1 tablet by mouth three times a day as needed cyclobenzaprine 57311196129 Janay Manrique ENOXAPARIN SODIUM 40 MG/0.4ML SOSY Inject 0.4 ml subcutaneously once a day as directed 11/02 enoxaparin 34955529740 Janay Manrique ATORVASTATIN CALCIUM 80 MG TABS Take 1 tablet by mouth every night atorvastatin 81995101978 Janay Manrique PROCHLORPERAZINE EDISYLATE 10 MG/2ML SOLN 2 ml every eight hours as needed prochlorperazine edisylate 49901238260 Janay Manrique INSULIN LISPRO 100 UNIT/ML SOLN Inject 2-7 unit subcutaneously four times a day as directed insulin lispro 03109201292 Janay Manrique SENNOSIDES-DOCUSAT E SODIUM 8.6-50 MG TABS Take 2 tablet by mouth twice a day as needed sennosides-docusa te sodium 99931046399 Janay Manrique PROMETHAZINE HCL 25 MG TABS Take 1 tablet by mouth every six hours as needed promethazine 88648961117 Janay Manrique Valbenazine Tosylate 80 MG capsule Take 1 capsule by mouth once a day Valbenazine Tosylate 80 MG capsule Janay Manrique TRAZODONE HCL 150 MG TABS Take 3 tablet by mouth every night trazodone 80633317961 Janay Manrique DOCUSATE SODIUM 100 MG CAPS Take 1 capsule by mouth twice a day 09/18 docusate sodium 50286530619 Janay Manrique OMEPRAZOLE 40 MG CPDR Take 1 capsule by mouth once a day omeprazole 23664809494 Janay Burton CETIRIZINE HCL 10 MG TABS Take 1 tablet by mouth once a day cetirizine 28362193519 Janay Manrique MELATONIN 5 MG TABS Take 1 tablet by mouth every night as needed melatonin 89429350776 Halcomfort Burton LIDOCAINE PAIN RELIEF MAX ST 4 % PTCH Place 1 patch once a day as directed lidocaine 70737332129 Janay Manrique DESVENLAFAXINE SUCCINATE ER 100 MG [id number] Take 2 tablet by mouth once a day desvenlafaxine succinate 95447665992 Janay Manrique DOXYCYCLINE HYCLATE 100 MG CAPS Take 1 capsule by mouth twice a day 09/28 doxycycline hyclate 75162454461 Janay Burton ALENDRONATE SODIUM 70 MG TABS Take 1 tablet by mouth once a week alendronate 85311160668 Janay Manrique Cubicin RF (daptomycin) recon soln Cubicin 650mg IV [id number] 09/15 daptomycin [facility] RN aztreonam recon solmeseret Aztreonam 2G IV [id number] 09/15 aztreonam recon soln [facility] RN Valbenazine Tosylate 80 MG capsule Take 1 capsule by mouth Daily. 09/15 Valbenazine Tosylate 80 MG capsule QIE qieuser TRAZODONE HCL 150 MG TABS Take 3 tablets by mouth Every Night. 09/15 trazodone 01234829155 QIE qieuser SENNOSIDES-DOCUSAT E SODIUM 8.6-50 MG TABS Take 2 tablets by mouth 2 (Two) Times a Day As Needed for Constipation. sennosides-docusa te sodium 71422797454 QIE qieuser PROMETHAZINE HCL 25 MG TABS Take 1 tablet by mouth Every 6 (Six) Hours As Needed for Nausea or Vomiting. 09/15 promethazine 74980912702 QIE qieuser PROCHLORPERAZINE EDISYLATE 10 MG/2ML SOLN Infuse 2 mL into a venous catheter Every 8 (Eight) Hours As Needed (headache/migrai ne (give with iv benadryl)). 09/15 prochlorperazine edisylate 26158463373 QIE qieuser PEG 3350 17 GM PACK Take 17 g by mouth Daily. 09/15 polyethylene glycol 3350 75521980423 QIE qieuser ONETOUCH ULTRA STRP null blood sugar diagnostic 57953087073 QIE qieuser OMEPRAZOLE 40 MG CPDR Take 1 capsule by mouth Daily. 09/15 omeprazole 70929536596 QIE qieuser NIFEDIPINE ER 30 MG [id number] Take 1 tablet by mouth Daily. 09/15 nifedipine 10313751188 QIE qieuser NICOTINE STEP 1 21 MG/24HR PT24 null nicotine 02080489327 QIE qieuser MELATONIN 5 MG TABS Take 1 tablet by mouth At Night As Needed (insomnia). 09/15 melatonin 91144846795 QIE qieuser LISINOPRIL 40 MG TABS Take 1 tablet by mouth Daily. 09/15 lisinopril 08411293253 QIE qieuser LIDOCAINE PAIN RELIEF MAX ST 4 % PTCH Place 1 patch on the skin as directed by provider Daily. Remove & Discard patch within 12 hours or as directed by 09/15 lidocaine 01526142706 QIE qieuser LEVETIRACETAM 500 MG TABS Take 1 tablet by mouth Every 12 (Twelve) Hours. 09/15 levetiracetam 79787469991 QIE qieuser ONETOUCH DELICA PLUS [id number] null lancets 31831288160 QIE qieuser INSULIN LISPRO 100 UNIT/ML SOLN Inject 2-7 Units under the skin into the appropriate area as directed 4 (Four) Times a Day Before Meals & at Bedtime. 09/15 insulin lispro 86361087381 QIE qieuser insulin detemir (LEVEMIR) 100 UNIT/ML injection Inject 5 Units under the skin into the appropriate area as directed Every Morning. 09/15 LEVEMIR QIE qieuser HYDROXYZINE PAMOATE 25 MG CAPS Take 1 capsule by mouth 3 (Three) Times a Day As Needed for Itching. 01/18 hydroxyzine pamoate 30702917884 QIE qieuser GABAPENTIN 400 MG CAPS Take 2 capsules by mouth Every 8 (Eight) Hours for 4 days. 09/08 gabapentin 68109857450 QIE qieuser ENOXAPARIN SODIUM 40 MG/0.4ML SOSY Inject 0.4 mL under the skin into the appropriate area as directed Daily for 60 days. 11/02 enoxaparin 67726877158 QIE qieuser DOXYCYCLINE HYCLATE 100 MG CAPS Take 1 capsule by mouth 2 (Two) Times a Day for 14 days. 09/28 doxycycline hyclate 65958517331 QIE qieuser DOCUSATE SODIUM 100 MG CAPS Take 1 capsule by mouth 2 (Two) Times a Day for 15 days. 09/18 docusate sodium 26801328624 QIE qieuser DESVENLAFAXINE SUCCINATE ER 100 MG [id number] Take 2 tablets by mouth Daily. 09/15 desvenlafaxine succinate 90163775041 QIE qieuser CYCLOBENZAPRINE HCL 5 MG TABS Take 1 tablet by mouth 3 (Three) Times a Day As Needed for Muscle Spasms. 01/18 cyclobenzaprine 29624008888 QIE qieuser CETIRIZINE HCL 10 MG TABS Take 1 tablet by mouth Daily. 09/15 cetirizine 48059926704 QIE qieuser ANTACID CALCIUM 500 MG CHEW null calcium carbonate 15147564287 QIE qieuser BD PEN NEEDLE MICRO ULTRAFINE 32G X 6 MM null pen needle, diabetic 24207320706 QIE qieuser ATORVASTATIN CALCIUM 80 MG TABS Take 1 tablet by mouth Every Night. 09/15 atorvastatin 38580775417 QIE qieuser QULIPTA 60 MG TABS Take 1 tablet by mouth. 09/15 atogepant 51819526070 QIE qieuser ASPIRIN 325 MG TABS Take 1 tablet by mouth Daily. 09/15 aspirin 43470002773 QIE qieuser ALENDRONATE SODIUM 70 MG TABS Take 1 tablet by mouth Every 7 (Seven) Days. 09/15 alendronate 55295583490 QIE qieuser ACETAMINOPHEN 500 MG TABS Take 1 tablet by mouth Every 6 (Six) Hours As Needed for Mild Pain. 09/15 acetaminophen 22584707031 QIE qieuser ACETAMINOPHEN 325 MG TABS Take 2 tablets by mouth Every 6 (Six) Hours As Needed for Mild Pain. 09/15 acetaminophen 40372458311 QIE qieuser Medications Administered No information available. [...] Procedures Code Procedure Name Date Entry Date [id number] CBC with Differential 2023 CPT-93889 C- reactive protein CPT-sl STAT [facility] [id number] CBC with Differential 2023 CPT-72947 C- reactive protein [id number], [id number] CPK CPT-43824 Sedimentation Rate (ESR) 202 10/20/22 CPT-80428 CMP Vital Signs Date Name Value Unit [...]
[2025-04-19] MEDS: BUTORPHANOL TARTRATE 2 MG/ML VIAL 3 MG IM (17:28)
[2025-04-19] MEDS: PROMETHAZINE 50 MG/ML IM (17:29)
== END 2025-04-19 23:59 | disposition home or self-care (01) ==
LOC: INF 16:45
PROVIDERS: PCP Family Medicine; Visit Provider Family Medicine
DX: G43.C1 Periodic headache syndromes in child or adult, intractable (principal)
CPT/HCPCS: 96372; J0595; J2550

== ENCOUNTER 2025-04-21 13:29 | Outpatient (CLI) | payer MEDICARE, SELFPAY ==
--- OUTSIDE RECORDS SUMMARY | 2025-01-25 10:15 | XMS_ITS ---
[facility] Address [address] [place] [address] [place] [id number] Care Team Providers Care Material Control Associate Name Role Phone Samuel Gutierres Primary Care [...] AYS.; Duration: 28 Active OneTouch Delica Plus [id number] - USE 4 TIMES DAILY; Duration: 25 Active Acetaminophen 325 mg TAKE TWO TABLETS BY MOUTH EVERY 6 HOURS NEEDED; Duration: 13 Active Fluticasone Propionate 50 MCG/ACT 2 spray in each nostril Nasally once a day as needed 10/07/2024 Active FreeStyle John 14 Day [place] - as directed Active Gabapentin 800 MG [...] 01/25/2025 Encounters Encounter Location Date Provider Diagnosis [facility] [address] [facility] [address] [place], [place] [id number] 01/25/2025 Samuel Gutierres Acute tonsillitis, unspecified J03.90 ; Intractable periodic headache syndrome G43.C1 and BMI 22.0-22.9, adult Z68.22 Assessments Encounter Date Diagnosis (ICD Code) Assessment Notes Treatment Notes Treatment Clinical Notes Section Notes 01/25/2025 Acute tonsillitis, unspecified (ICD-10 - J03.90) 01/25/2025 Intractable periodic headache syndrome (ICD-10 - G43.C1) Order provided for injection of Stadol 3 mg and Phenergan 50 mg IM at [facility] today. Continue with plan of care as outlined by the [facility]. 01/25/2025 BMI 22.0-22.9, adult (ICD-10 - Z68.22) Plan Of Treatment Medication Medication Name Sig Start Date Stop Date Notes Zithromax Z-Chuck 250 MG as directed Orally 01/25/2025 Treatment Notes Assessment Notes Intractable periodic headache syndrome O rder provided for injection of Stadol 3 mg and Phenergan 50 mg IM at [facility] today. Next Appt Details Follow Up: 4 Weeks, Reason: Progress Notes * JESUS MANUEL PITTMANADOB:1965 (60 yo F)Acc No.[id number]:01/25/2025 Progress Notes Patient: JACI HERNANDEZ Provider: Samuel Gutierres M.D. :1965 A ge:59 Y S ex:Female Date:01/25/2025 Address[facility] [id number] Subjective: * Chief Complaints: * 1 . [...] She has left the residential facility in [place] and is now living with a friend, [...] Dr. Barahona 03/25/2017, ORIF R ankle fx/ [facility] 06/2023, Explant of screws from right ankle/ [facility] 07/2023. * Family History: F ather: [...] TOUCH GLUCOMETER DIRECTED USE DIRECTED , Taking Accertify Ultra 2 w/Device Kit as directed , [...] needed , Taking FreeStyle John 14 Day [place] - Device as directed , Taking FreeStyle John 2 Sensor - Miscellaneous USE DIRECTED (CHANGE EVERY 14 D AYS. , Taking OneTouch Delica Plus [id number] - Miscellaneous USE 4 TIMES DAILY , [...] Temp: 000, BP: 120/70, HR: 91, Nurse: solomon, Ht: 63.50, BMI:22.94. * Examination: G eneral [...] headache syndrome - G43.C1 3 . B [place] 22.0-22.9, adult - Z68.22 ? Plan: * Treatment: 2. I ntractable periodic headache syndrome Notes: Order provided for injection of Stadol 3 mg and Phenergan 50 mg IM at [facility] today. Clinical Notes: Continue with plan of [...] * Images: Billing Information: * Visit Code: 64238 Office Visit, Est Pt., Level 3. * Procedure Codes: G2211 Complex e/m visit add on. G8783 BP SCR PRFRM RCMDD DEFIND SCR INTVL. G8752 MOST RECENT SYSTOLIC BP < 140MM HG. G8754 MOST RECENT DIASTOLIC BP < 90MM HG. G8420 BMI<30 AND >=22 CALC & DOCU. * Electronic signature of Samuel Gutierres MD on 04/21/2025 at 01:32 PM EDT Sign off status: Pending * Provider: Samuel Gutierres M.D. Date: 0 01/25/2025 Generated for Leanne mccracken/Mendy/eTjalilsmitting on: 1 01:32 PM EDT History and Physical Notes * [...]
--- OUTSIDE RECORDS SUMMARY | 2025-03-03 09:45 | XMS_ITS ---
[facility] [address] [place] [id number] Care Team Providers Care Ornamenter Name Role Phone Samuel Gutierres Primary Care [...] Active Results Component Value Reference Range Notes CBC Venipuncture (in house) Reviewed date:03/07/2025 10:11:20 AM Interpretation: Performing Lab: Notes/Report: wbc 10.8 3.5 - 10 lymph 18.8 15 - 50 mid 5.2 2 - 15 gran 76.0 35 - 80 rbc 5.41 3.5 - 5.5 hgb 17.3 11.5 - 16.5 hct 51.6 35 - 55 mcv 95.3 75 - 100 mch 32.0 25 - 35 mchc 33.6 31 - 38 platlet 318 100 - 400 Glycohemoglobin A1c (in hous e) Reviewed date:03/07/2025 10:11:20 AM Interpretation:6.7% Performing Lab: Notes/Report: 6.7% glycohemoglobin 6.7% 5 - 6.5 % P-Comprehensive Metabolic [place] (CMP) Reviewed date:03/07/2025 10:11:20 AM Interpretation:K+ 3.2, gluc 216, bun 37, Cr 1.69, gfr 34, alk phos 139 Performing Lab: Notes/Report: Test performed by [email or web address] [address] [place] [address] , [address], [place] [address] Augustus Lee MD, Form [employer] CLIA: [id number] Sodium 140 135-145 mmol/L Potassium 3.2 3.5-5.3 mmol/L Chloride 100 97-108 mmol/L CO2 21 20-32 mmol/L Glucose 216 65-99 mg/dL BUN 37 8-23 mg/dL Creatinine 1.69 0.50-1.00 mg/dL Calcium 10.1 8.6-10.4 mg/dL eGFR by Creatinine 34 >59 mL/min/1.73m2 Protein 6.8 6.0-8.3 g/dL Albumin 4.3 3.5-5.3 g/dL Alkaline Phosphatase 139 35-121 IU/L ALT (SGPT) 24 <5-47 IU/L AST (SGOT) 23 <5-40 IU/L Bilirubin, Total 0.4 <0.2-1.2 mg/dL A/G Ratio 1.7 1.1-2.5 P-Magnesium Reviewed date:03/07/2025 10:11:20 AM Interpretation:Normal Performing Lab: Notes/Report: Test performed by [email or web address] [address] [place] [address] , [address], [place] [address] Augustus Lee MD, [employer] CLIA: [id number] Magnesium 1.6 1.6-2.4 mg/dL P-TSH Reviewed date:03/07/2025 10:11:20 AM Interpretation:0.18 Performing Lab: Notes/Report: Test performed by [email or web address] [address] [place] [address] , [address], [place] [address] Augustus Lee MD, Form [employer] CLIA: [id number] TSH 0.18 0.43-5.25 mU/L REASON FOR VISIT migraine Medications Medication SIG (Take, Route, Frequency, Duration) Notes Start Date End Date Status Diphenoxylate-Atropine 2.5-0.025 MG 1 tab(s) Orally q6h prn diarrhea 01/28/2025 Active Accu-Chek Softclix Lancets - once a day; Duration: 100 days 02/14/2025 Active Accu-Chek Guide Test - as directed In Vi tro daily; Duration: 100 days 02/14/2025 Active Accu-Chek Guide w/Device as directed 02/14/2025 Active Gabapentin 800 MG 1 tab(s) orally 3 ti mes a day; Duration: 30 days 02/04/2025 Active Desvenlafaxine ER 100 MG 1 tab(s) orally At Bed Time Active Qulipta 60 MG 1 tab(s) orally At B ed Time Active Melatonin 5 MG 1 tab Orally At Bed Time; Duration: 30 days 10/07/2023 Active traZODone HCl 150 MG 1 tab(s) orally onc e a day (at bedtime) Active Keppra 500 MG 1 tablet Orally Two times a day Active Atorvastatin Calcium 80 MG 1 tab(s) orally once a day in the evening; Duration: 30 days Active Aspirin 325 MG 1 tab(s) orally once a day; Duration: 30 days Active Cetirizine HCl 10 MG 1 tablet Orally onc e daily Active tiZANidine HCl 4 MG 1 tablet Orally Thre e times a day Active Farxiga 10 MG 1 tab(s) Orally once a day; Duration: 30 days Active Omeprazole 40 MG 1 cap(s) Orally once daily; Duration: 30 days Active NIFEdipine ER 30 MG 1 tab(s) Orally Once a day; Duration: 30 days Active Ingrezza 80 MG 1 cap(s) orally At B ed Time; Duration: 30 days Active Alendronate Sodium 70 mg Take 1 tablet o nce weekly 30 minutes before the first food, beverage or medicine of the day with plain water; Duration: 28 days Not-Taking Lisinopril 40 MG 1 tablet Orally Once a day; Duration: 30 days Active FreeStyle John 2 Sensor - USE DIRECTED (CHANGE EVERY 14 D AYS.; Duration: 28 Active FreeStyle John 14 Day Clear - as directed Active Fluticasone Propionate 50 MCG/ACT 2 spray in each nostril Nasally once a day as needed 10/07/2024 Active Zithromax Z-Chuck 250 MG as directed Orally 01/26/20 25 Not-Taking Acetaminophen 325 mg TAKE TWO TABLETS BY MOUTH EVERY 6 HOURS NEEDED; Duration: 13 Active Ibuprofen 800 MG 1 tablet with food o r milk as needed Orally every 8 hrs prn 08/05/2024 Active Lantus SoloStar 100 UNIT/ML 20 units Subcutaneous once daily 08/12/2024 Active BD Pen Needle Micro U/F 32G X 6 MM USE DIRECTED TWICE DAILY.; Duration: 50 Active Promethazine HCl 25 MG 1 tab(s) Orally t wo times a day as needed Active Glucerna Shake - 240 ml Orally once daily 04/22/2024 Active Glucagon Emergency 1 MG as directed Injection 05/21 Active GLUCOMETER DIRECTED TEST QD 07/09/2021 Active Lidocaine 4 % 1 patch Externally O nce a day prn 10/07/2023 Active Tums 500 MG 2 tablet Orally four times a day as needed 05/06/2023 Active Vistaril 25 MG 1 cap(s) orally thre e times a day as needed; Duration: 30 days Active Vyepti 100 MG/ML as directed Intravenous Active Problems Problem Type SNOMED Code ICD Code Onset Dates Problem Status W/U Status Risk Notes Problem Multinodular goiter (613796465) Multinodular goiter (E04.2) Active confirmed Vital Signs Weight 118.4 lbs 03/03/2025 Blood pressure systolic 118 mm Hg 03/03/20 25 Blood pressure diastolic 60 mm Hg 025 Height 63.50 in 03/03/2025 BMI 20.64 kg/m2 03/03/2025 Encounters Encounter Location Date Provider Diagnosis [facility] [address] [facility] [address] [place], [place] [id number] 03/03/2025 R Josh Gutierres Intractable periodic headache syndrome G43.C1 ; Tardive dyskinesia G24.01 ; Tobacco use disorder F17.200 ; Essential hypertension I10 ; Partial seizure disorder G40.109 ; Weight loss R63.4 ; Type 2 diabetes mellitus with diabetic polyneuropathy E11.42 and Multinodular goiter E04.2 Assessments Encounter Date Diagnosis (ICD Code) Assessment Notes Treatment Notes Treatment Clinical Notes Section Notes 03/03/2025 Intractable periodic headache syndrome (ICD-10 - G43.C1) Order provided for injection of Stadol 3 mg and Phenergan 50 mg IM at [facility] today. Continue with plan of care as outlined by the [facility]. 03/03/2025 Tardive dyskinesia (ICD-10 - G24.01) 03/03/2025 Tobacco use disorder (ICD-10 - F17.200) 03/03/2025 Essential hypertension (ICD-10 - I10) 03/03/2025 Partial seizure disorder (ICD-10 - G40.109) 03/03/2025 Weight loss (ICD-10 - R63.4) 03/03/2025 Type 2 diabetes mellitus with diabetic polyneuropathy (ICD-10 - E11.42) 03/03/2025 Multinodular goiter (ICD-10 - E04.2) Plan Of Treatment Treatment Notes Assessment Notes Intractable periodic headache syndrome O rder provided for injection of Stadol 3 mg and Phenergan 50 mg IM at [facility] today. Next Appt Details Follow Up: via phone to repo rt test results, Reason: Progress Notes * JESUS MANUEL [place]:1965 (60 yo F)Acc No.[id number]:03/03/2025 Progress Notes Patient: JACI HERNANDEZ Provider: Samuel Gutierres M.D. :1965 A ge:60 Y S ex:Female Date:03/03/2025 Address:[facility] [address] [place], [place] Subjective: * Chief Complaints: * 1 . Migraine. * HPI: N eurology: She presents with complaints of persistent migraine headache with nausea and mild photophobia for the past 4 days. She is scheduled for her next Vyepti injection in March. C onstitutional: Weight loss noted. She admits she is having difficulty caring for herself since leaving the assisted living facility in [place]. She is not eating properly. She does seem to be taking her medications as directed. She has difficulty with many activities of daily living. She is having a phone consultation with her embedded hardware engineer this afternoon to help with possible other living arrangements. * ROS: D ERMATOLOGY: no R jennifer. n o H sepideh. G ASTROENTEROLOGY: no N ausea. n o V omiting. n o D iarrhea.? U ROLOGY: no D ifficulty urinating. n o B lood in urine. * Medical History: M igraine headache, Hypertension, Smoking, Meningioma - 11/2013, Intra-operative stroke with expressive aphasia - 12/08/13, Type 2 DM, Tobacco addiction, Tardive dyskinesia, Multinodular goiter by ultrasound. * Surgical History: R T breast lumpectomy 1998, DREZ procedure 1999, tubal ligation 2000, teeth extracted 03/20/2009, Meningoma removed from left side of brain 12/08/2013, Repeat DREZ procedure - Dr. Barahona 03/25/2017, ORIF R ankle fx/ [facility] 06/2023, Explant of screws from right ankle/ [facility] 07/2023. * Family History: F ather: [...] MG/ML Solution as directed Intravenous , Taking GLUCOMETER DIRECTED TEST QD , Taking Glucagon Emergency 1 MG Kit as directed Injection , Taking Vistaril 25 MG Capsule 1 cap(s) orally three times a day as needed , Taking Tums 500 MG Tablet Chewable 2 tablet Orally four times a day as needed , Taking Lidocaine 4 % Patch 1 patch Externally Once a day prn , Taking BD Pen Needle Micro U/F [...] , Taking Lantus SoloStar 100 UNIT/ML Solution Pen- injector 20 units Subcutaneous once daily , Taking Fluticasone Propionate 50 MCG/ACT Suspension 2 spray in each nostril Nasally once a day as needed , Taking FreeStyle John 14 Day Clear - Device as directed , Taking FreeStyle John 2 Sensor - Miscellaneous USE DIRECTED (CHANGE EVERY 14 D AYS. , Taking Acetaminophen 325 mg Tablet TAKE TWO TABLETS BY MOUTH EVERY 6 HOURS NEEDED , Taking Ingrezza 80 MG Capsule 1 cap(s) orally At Bed Time , Taking Lisinopril 40 MG Tablet 1 tablet Orally Once a day , Taking NIFEdipine ER 30 MG Tablet Extended Release 24 Hour 1 tab(s) Orally Once a day , Taking Omeprazole 40 MG Capsule Delayed Release 1 cap(s) Orally once daily , Taking tiZANidine HCl 4 MG Tablet 1 tablet Orally Three times a day , Taking Cetirizine HCl 10 MG Tablet 1 tablet Orally once daily , Taking Aspirin 325 MG Tablet Delayed Release 1 tab(s) orally once a day , Taking Atorvastatin Calcium 80 MG Tablet 1 tab(s) orally once a day in the evening , Taking Farxiga 10 MG Tablet 1 tab(s) Orally once a day , Taking Keppra 500 MG Tablet 1 tablet Orally Two times a day , Taking traZODone HCl 150 MG Tablet 1 tab(s) orally once a day (at bedtime) , Taking Melatonin 5 MG Tablet 1 tab Orally At Bed Time , Taking Qulipta 60 MG Tablet 1 tab(s) orally At Bed Time , Taking Desvenlafaxine ER 100 MG Tablet Extended Release 24 Hour 1 tab(s) orally At Bed Time , Taking Diphenoxylate-Atropine 2.5-0.025 MG Tablet 1 tab(s) Orally q6h prn diarrhea , Taking Gabapentin 800 MG Tablet 1 tab(s) orally 3 times a day , Taking Accu-Chek Guide w/Device Kit as directed , Taking Accu-Chek Guide Test - Strip as directed In Vitro daily , Taking Accu-Chek Softclix Lancets - Miscellaneous once a day , Not-Taking Zithromax Z-Chuck 250 MG Tablet as directed Orally , Not-Taking Alendronate Sodium 70 mg Tablet Take 1 tablet once weekly 30 minutes before the first food, beverage or medicine of the day with plain water , Medication List reviewed and reconciled with the patient * Allergies: P enicillin, Erythromycin, DHEA, Methadone, Ketorolac, Relpax: HBP - Onset Date 05/31/2019, AMERGE: HBP and palpitations, Imitrex: HBP, Sulfa Antibiotics: itching, Cephalexin, Cipro, SEROquel, Reglan: messed with her head, Viibryd: diarrhea - Side Effects, Aimovig: leg pain - Side Effects. Objective: * Vitals: W t: 118.4, Temp: 98.4, BP: 118/60, Nurse: mamta, Ht: 63.50, BMI:20.64. * Examination: G eneral Examination: General Appearance: S he comes in accompanied by friend.? She is more anxious and tearful today. She also appears more disheveled. O ral cavity:?Mucous membranes slightly dry. H eart: R SR. L ungs: c lear to auscultation. Neurologic Exam: F acial grimacing. No other focal motor deficits.. ? Assessment: * Assessment: 1. I ntractable periodic headache syndrome - G43.C1 (Primary) 2 . T ardive dyskinesia - G24.01 3 . T obacco use disorder - F17.200 4 . E ssential hypertension - I10 5 . P artial seizure disorder - G40.109 6 . W eight loss - R63.4 7 . T ype 2 diabetes mellitus with diabetic polyneuropathy - E11.42 8 . M ultinodular goiter - E04.2 Plan: * Treatment: 2. E ssential hypertension L AB: P-Comprehensive Metabolic Panel (CMP) (Collection Date & Time - 03/03/2025 01:16 PM) K + 3.2, gluc 216, bun 37, Cr 1.69, gfr 34, alk phos 139 Value Reference Range A /G Ratio 1.7 1.1-2.5 - * A lbumin 4.3 3.5-5.3 - g/dL * A lkaline Phosphatase 139 H 35-121 - IU/L * A LT (SGPT) 24 <5-47 - IU/L * A ST (SGOT) 23 <5-40 - IU/L * B ilirubin, Total 0.4 <0.2-1.2 - mg/dL * B UN 37 H 8-23 - mg/dL * C alcium 10.1 8.6-10.4 - mg/dL * C hloride 100 97-108 - mmol/L * C O2 21 20-32 - mmol/L * C reatinine 1.69 H 0.50-1.00 - mg/dL * G lucose 216 H 65-99 - mg/dL * P otassium 3.2 L 3.5-5.3 - mmol/L * S odium 140 135-145 - mmol/L * P rotein 6.8 6.0-8.3 - g/dL * e GFR by Creatinine 34 L >59 - mL/min/1.73m2 * Samuel Gutierres 03/07/2025 10:11:08 AM EDT > See phone encounter ?LAB: P-Magnesium (Collection Date & Time - 03/03/2025 01:16 PM)?Normal* Value Reference Range M agnesium 1.6 1.6-2.4 - mg/dL * Samuel Gutierres 03/07/2025 10:11:08 AM EDT > See phone encounter ?LAB: P-TSH (Collection Date & Time - 03/03/2025 01:16 PM)?0.18* Value Reference Range T SH 0.18 L 0.43-5.25 - mU/L * Samuel Gutierres 03/07/2025 10:11:08 AM EDT > See phone encounter ?LAB: CBC Venipuncture (in house) (Collection Date & Time - 03/03/2025)* Value Reference Range w bc 10.8 3.5 - 10 * l ymph 18.8 15 - 50 * m id 5.2 2 - 15 * g ran 76.0 35 - 80 * r bc 5.41 3.5 - 5.5 * h gb 17.3 11.5 - 16.5 * h ct 51.6 35 - 55 * m cv 95.3 75 - 100 * m ch 32.0 25 - 35 * m chc 33.6 31 - 38 * p latlet 318 100 - 400 * Doreen Paredes 03/03/2025 02:4 5:35 PM EDT > Samuel Gutierres 03/07/2025 10:11:08 AM EDT > See phone encounter ?LAB: Glycohemoglobin A1c (in house) (Collection Date & Time - 03/03/2025)? 6.7%* Value Reference Range g lycohemoglobin 6.7% 5 - 6.5 % * Doreen Paredes 03/03/2025 02:4 6:16 PM EDT > Samuel Gutierres 03/07/2025 10:11:08 AM EDT > See phone encounter * Procedure Codes: G 2211 Complex e/[place], [address] CBC WITH AUTO DIFF, 27589 GLYCATED HEMOGLOBIN TEST, Modifiers: QW , 3044F HG A1C LEVEL LT 7.0%, G8950 PREHTN/HTN BP DOC INDCD F/U DOC, G8752 MOST RECENT SYSTOLIC BP < 140MM HG, G8754 MOST RECENT DIASTOLIC BP < 90MM HG * Follow Up: v ia phone to report test results * Images: Billing Information: * Visit Code: 70065 Office Visit, Est Pt., Level 3. * Procedure Codes: G2211 Complex e/[place]. [address] CBC WITH AUTO DIFF. 14636 GLYCATED HEMOGLOBIN TEST. Modifiers: QW 3044F HG A1C LEVEL LT 7.0%. G8950 PREHTN/HTN BP DOC INDCD F/U DOC. G8752 MOST RECENT SYSTOLIC BP < 140MM HG. G8754 MOST RECENT DIASTOLIC BP < 90MM HG. * Electronic signature of Samuel Gutierres MD on 04/21/2025 at 01:32 PM EDT Sign off status: Pending * Provider: Samuel Gutierres M.D. Date: 0 03/03/2025 Generated for Leanne [email or web address]/Mendy/eTishaan on: 1 01:32 PM EDT History and Physical Notes * Examination Category Sub-Category Detail Notes Category Not es General Examination Heart: RSR Lungs: clear to auscultatio n General Appearance: She comes in accompa nied by friend. She is more anxious and tearful today. She also appears more disheveled Neurologic Exam: Facial grimacing. No other focal motor deficits. Oral cavity: Mucous membranes sli ghtly dry
--- OUTSIDE RECORDS SUMMARY | 2025-03-07 06:03 | XMS_ITS ---
Author Organization [facility] Address [facility]0 [address] [place] [id number] Care Team Providers Care Whiting Machine Operator Name Role Phone Samuel Gutierres Primary Care Provider REASON FOR VISIT Test Results Problems Problem Type SNOMED Code ICD Code Onset Dates Problem Status W/U Status Risk Notes Problem Hyperthyroidism (32766761) Hyperthyroidism (E05.90) Active confirmed Encounters Encounter Location Date Provider Diagnosis [place] [facility]0 [facility] [address] [place] [id number] 03/07/2025 Samuel Gutierres Hyperthyroidism E05. 90 and Multinodular goiter E04.2 Assessments Encounter Date Diagnosis (ICD Code) Assessment Notes Treatment Notes Treatment Clinical Notes Section Notes 03/07/2025 Hyperthyroidism (ICD-10 - E05.90) 03/07/2025 Multinodular goiter (ICD-10 - E04.2) Plan Of Treatment Pending Test Test Name Order Date Radioactive Iodine Uptake Scan (I-123) 0 03/07/2025 H-Thyroid panel 03/07/2025 H-Thyroid Peroxidase Antibodies 03/07/20 25 Progress Notes * WIL PITTMANB:1965 (60 yo F)Acc No.[id number]:03/07/2025 Patient: JACI HERNANDEZ :1965 A ge:60 Y S ex:Female Address:[place] [address] Subjective: * Chief Complaints: * T est Results * Medical History: * Surgical History: * Hospitalization/Major Diagno stic Procedure: * Medications: Objective: * Vitals: * Physical Examination: Assessment: * Assessment: 1. H yperthyroidism - E05.90 (Primary) 2 . M ultinodular goiter - E04.2? Plan: * Treatment: 2.?Multinodular goiter?LAB: H-Thyroid panel ?LAB: H-Thyroid Peroxidase Antibodies ?Imaging: Radioactive Iodine Uptake Scan (I-123)* Chata Martines 03/08/2025 03: 04:55 PM EDT > faxed to scheduling unsure if anything futher needs done. * Procedure Codes: * true * Date: Generated for Leanne mccracken/Mendy/eTransmitting on: 01:32 PM EDT
--- OUTSIDE RECORDS SUMMARY | 2025-03-08 10:30 | XMS_ITS ---
Author Organization [facility] [address] [facility] [address] [place] [id number] Care Team Providers Care Supervisor Metal Placing Name Role Phone Samuel Gutierres Primary Care Provider [phone] Allergies Allergen (clinical drug ingredient) Drug/Non Drug [...] toenails, needs a H & P for retirement admission Medications Medication SIG (Take, Route, Frequency, [...] Duration: 28 Active FreeStyle John 14 Day [place] - as directed Active Lidocaine 4 % [...] Problem Acquired hammer toe of left foot ([id number] 103) Hammer toe of left foot (M20.42) Active confirmed Problem Acquired hammer toe of right foot (0494511228771 105) Hammer toe of right foot (M20.41) Active confirmed Problem Adult failure to thrive syndrome (974423300) Adult failure to thrive (R62.7) Active confirmed Vital Signs Weight 115.8 lbs 03/08/2025 Blood pressure systolic 112 mm Hg 03/08/20 25 Blood pressure diastolic 74 mm Hg 025 Heart Rate 105 /min 03/08/2025 Height 63.50 in 03/08/2025 BMI 20.19 kg/m2 03/08/2025 Encounters Encounter Location Date Provider [facility] [address] [id number] 03/08/2025 Samuel Gutierres Type 2 diabetes sherlyn [...] after tests, Reas on: Progress Notes * WIL PITTMANB:1965 (60 yo F)Acc No.[id number]:03/08/2025 Extended Visit Patient: Michel FAIZAJACI ALVAREZ Provider: Samuel Gutierres M.D. :1965 A ge:60 Y S ex:Female Date:03/08/2025 Address:[id number] Subjective: * Chief Complaints: * 1 . trim toenails, needs a H & P for retirement admission. * HPI: H PI: She comes in today accompanied by her state assistant baseball coach who is trying to assist her with long-term care placement. Since being discharged from [facility] assisted care in [place], she has not done well from a [...] Dr. Barahona 03/25/2017, ORIF R ankle fx/ [facility] 06/2023, Explant of screws from right ankle/ [facility] 07/2023. * Family History: F [...] needed , Taking FreeStyle John 14 Day [place] - Device as directed , Taking FreeStyle [...] failure to thrive - R62.7? 8. B [place] 20.0-20.9, adult - Z68.20 Plan: * Treatment: [...] MOST RECENT DIASTOLIC BP < 90MM HG, [address] TRIM NAIL(S) * Follow Up: a fter tests * Images: Billing Information: * Visit Code: 92458 Office Visit, Est Pt., Level 3. Modifiers: 25 * Procedure Codes: G2211 Complex e/m visit add on. G0127 TRIMMING DYSTROPHIC NAILS ANY #. 3044F HG A1C LEVEL LT 7.0%. G8420 BMI<30 AND >=22 CALC & DOCU. G8783 BP SCR PRFRM RCMDD DEFIND SCR INTVL. G8752 MOST RECENT SYSTOLIC BP < 140MM HG. G8754 MOST RECENT DIASTOLIC BP < 90MM HG. 56220 TRIM NAIL(S). * Electronic signature of Samuel Gutierres MD on 04/21/2025 at 01:32 PM EDT Sign off status: Pending * Provider: Samuel Gutierres M.D. Date: 0 03/08/2025 Generated for Leanne mccracken/Mendy/Kanwalitting on: 1 01:32 PM EDT History and [...] in to day accompanied by her state assistant baseball coach who is trying to assist her with long-term care placement. Since being discharged from [facility] assisted care in [place], she has not done well from a [...]
--- OUTSIDE RECORDS SUMMARY | 2025-03-14 01:17 | XMS_ITS | Encounter Summary ---
Author Organization [employer] ([place], [place], [place], [place]) Address [address] [place] [address] Care Team Providers Care Lead Project Engineer Name Role Phone [facility] Lidia, Find-A-Doc Primary Care Provider Vasu Gutierres MD Primary Care Provider [phone] Sweetie Hewitt Unavailable [phone] Reason for Visit * Auth/Cert (Routine) Specialty Diagnoses / Procedures Referred By Contac t Referred To Contact Diagnoses Internal carotid artery stenosis Carotid stenosis, right CAROTID STENOSIS [facility] Cardiac Telemetry [address] [place] [address] Phone: tel: fax: [facility] Cardiac Telemetry [address] [place] [address] Phone: tel: fax: Referral ID Status Reason Start Date Expiration Date Visits Re quested Visits Authorized [id number] 1 1 Encounter Details Date Type Department Care Team (Late st Contact Info) Description 03/14/2025 1:17 AM EDT - 03/18/2025 1:56 PM EDT Hospital Encounter [facility] Cardiac Telemetry [address] [place] [address] Murphy Hugo MD [address] [place] [id number] Rupert Meek PA-C [address] [place], [place] [id number] Ivis Sequeira MD [address] [place] [address] Discharge Disposition: [facility] Social History Tobacco Use Types Packs/Day Years Used Date Smoking Tobacco: Never Assessed Utilities Answer Date Recorded In the past 12 months, has t he electric, gas, oil, or water company threatened to shut off services in your home? No 03/14/2025 Interpersonal Safety Answer Date Record ed How often does anyone, tin [place] family and friends, physically hurt you? Never 03/14/2025 How often does anyone, tin [place] family and friends, insult or talk down to you? Never 03/14/2025 How often does anyone, tin [place] family and friends, threaten you with harm? Never 03/14/2025 How often does anyone, tin nort[place] family and friends, scream or curse at you? Never 03/14/2025 Housing Stability Answer Date Recorded What is your living situation today? I have a [facility] place to live 03/14/[address] you li ve. Do you have problems with any of the following? Patient declines to answer 03/14/2025 Food Insecurity Answer Date Recorded Within the past 12 months, y ou worried that your food would run out before you got money to buy more. Patient declines to answer 03/14/2025 Within the past 12 months, t he food you bought just didn't last and you didn't have money to get more. Patient declines to answer 03/14/2025 Transportation Needs Answer Date Record ed In the past 12 months, has l ack of reliable transportation kept you from medical appointments, meetings, work or from getting things needed for daily living? Patient declines to answer 03/14/2025 Financial Resource Strain Answer Date R ecorded How hard is it for you to pa y for the very basics like food, housing, medical care, and heating? Would you say it is: Patient declines to answer 03/14/2025 Employment Answer Date Recorded Do you want help finding or keeping work or a job? I do not need or want help 03/14/2025 Family and Community Support Answer Aubrey e Recorded If for any reason you need h elp with day-to-day activities such as bathing, preparing meals, shopping, managing finances, etc., do you get the help you need? I don't need any help 03/14/2025 Feeling Lonely or Isolated 0 03/14 Educational Attainment Answer Date Sunday rded Do you speak a language other than [facility]? No 03/14/2025 Do you want help with school or training? For example, starting or completing job training or getting a high school diploma, GED or equivalent. No 03/14/2025 Physical Activity Answer Date Recorded Number of minutes of exercise per week 0 03/14/2025 Self Management Answer Date Recorded Because of a physical, menta l, or emotional condition, do you have serious difficulty concentrating, remembering, or making decisions? (5 years or older) No 03/14/2025 Because of a physical, menta l, or emotional condition, do you have difficulty doing errands alone such as visiting a doctor's office or shopping? (15 years or older) Yes 03/14/2025 Substance Use Answer Date Recorded How many times in the past y ear have you used prescription drugs for non-medical reasons? Never 03/14/2025 How many times in the past year have you used il legal drugs? Never 03/14/2025 Mental Health Answer Date Recorded Calculation of above two rows 0 Comments Unknown Sex and Gender Information Value Date Recorded Sex Assigned at Not on file Legal Sex Female 1:19 PM CDT Gender Identity Not on file Sexual Orientation Not on file documented as of this encounter Last Filed Vital Signs Vital Sign Reading Time Taken Comments Blood Pressure 145/81 03/17/2025 11:45 PM EDT Pulse 90 03/17/2025 11:45 PM EDT Temperature 36.1 C (97 F) 03/18/2025 4:00 AM EDT Respiratory Rate 16 03/17/2025 11:45 PM EDT Oxygen Saturation 95% 03/17/2025 11:45 PM EDT Inhaled Oxygen Concentration - - Weight 55 kg (121 lb 3.2 oz) 03/14/2025 3:00 AM EDT Height 157.5 cm (5' 2 ) 03/14/2025 3:00 AM EDT Body Mass Index 22.17 03/14/2025 3:00 AM EDT documented in this encounter Discharge Summaries * Ivis Sequeira MD - 03/18/2025 1:26 PM EDT [facility] MEDICINE DISCHARGE SUMMARY: Patient Name: Citlali Maravilla : 1965 Date of Admission: 03/14/2025 Date of Discharge: 03/18/2025 Discharge to facility: [place] Discharge CODE STATUS: full Primary Care Physician: KENNA Find-[facility] Consultations: Treatment Team: Consulting Physician: Manuel Bhandari MD Consulting Physician: Kris Gan MD PCP to follow up: Check cbc bmp Hospital Course and Discharge Diagnosis: Citlali Maravilla is a 60 y.o. female with a history of meningioma status postresection from 2016, history of CVA, seizure, tardive dyskinesia who presented on 03/14/2025 with headache and slurred speech and also found to carotid stenosis so transferred to us for neurosurgeon and the mold capper Consult Hospital course Patient admitted under our service and patient had MRI brain no acute change consistent with a history of the surgery of the brain. Neurosurgeon also counseled no other offered he signed off. Patientalso counseled cardiovascular interventional service due to the cardiac Doppler, no intervention needed, the recommendation DAPT treatment and will sign off. But they will follow her as an outpatient. today patient stable but she is in process go to [facility] so [facility]. Today I saw the patient talk to nurse patient alert awake stable so she will be transferred to [facility] today. She also have kind of the thyroid nodule will need ultrasound of thyroid as outpatient will need to do with PCP or endocrinology service. DIAGNOSIS: Ruled out Internal carotid artery stenosis Hypotension-resolved Headache/recurrent falls-chronic History of CVA with residual deficits Tardive dyskinesia History of meningioma Type 2 diabetes Hypertension Hyperlipidemia GERD Mood disorder Area of interest noted in the right thyroid measuring 1.52cm x 1.60cm- will need us of thyroid as outpatient Discharge Instructions Discharge Diet: ADA diet Discharge Activity: astolerated Discharge Follow UP: Contact information for follow-up [facility] Find-a-Doc Relationship: PCP - [facility] Find-a-Doc [facility] [id number] Next Steps: Follow up in 1 week(s) MECHE CALVERT Specialty: Physician [employer] [facility] [place] [facility] [address] [facility] [address] Next Steps: Go to Instructions: Follow up with your established Neurologist, As needed if heachae still ongiong and worse Kris Gan MD Specialty: Cardiology, Interventional Cardiology [address] [facility] [address] Next Steps: Go in 2 month(s) Instructions: Cardiology follow up 05/24/25 @9:00am (The office is temporarily under construction and will located in [address]) LC endocrinology Next Steps: Follow up in 2 month(s) Instructions: need US of thyroid for nodule Need check US of thyroid as outpatient with PCP or endocrinology Studies Performed: MRI BRAIN STEALTH W WO CONTRAST Result Date: 03/14/2025 MRI OF THE BRAIN WITH AND WITHOUT CONTRAST HISTORY: Acute headache. COMPARISON: March 2014. PROCEDURE: Multiplanar MR imaging of the brain was performed in multiple MR sequences, precontrast and postcontrast administration. A Stealth protocol was utilized. FINDINGS: Limited images the proximal cord are unremarkable. The ventricles are enlarged. There is diffuse atrophy. There is moderate periventricular and deep white matter change likely related to small vessel disease. There is no extra-axial fluid or midline shift. There is no evidence of acute hemorrhage. Flow-voids are appropriate. Diffusion-weighted images demonstrate no evidence of acute CVA. Limited images of the paranasal sinuses are unremarkable. Postcontrast images demonstrate no abnormal enhancement. 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 There is encephalomalacia and a craniotomy defect in the left frontal lobe consistent with remote lesion resection. Atrophy and periventricular white matter change without acute process. Images reviewed, interpreted, and dictated by America Galeano MD US CAROTID BLOOD FLOW BILATERAL Result Date: 03/14/2025 Vascular Carotid Procedure Demographics Patient Name RENITA BEATTY Age 60 Patient Number [id number] Female Race Unknown Ethnicity Corporate ID [id number] Height 62 Date of 1965 Weight 121 Accession Number [id number] BSA 1.54 m^2Room Number [id number] BMI 22.13 kg/m^2 Referring IVIS SEQUEIRA MD Interpreting KRIS GAN MD Physician Physician [employer] LORRAINE Davies Procedure Type of Study: Cerebral: Carotid, US CAROTID BLOODFLOW BILATERAL. Impressions Summary ######################################### INDICATION: I65.23 Occlusion and stenosis of bilateral carotid arteries. . RIGHT: < 50% (non flow restricting) stenosis of the internal carotid artery. Normal antegrade vertebral flow. No evidence of subclavian steal. Area of interest noted in the right thyroid measuring 1.52cm x 1.60cm, flow noted within. LEFT: <50% (non flow restricting) stenosis of the internal carotid artery. Normal antegrade vertebral flow. No evidence of subclavian steal. ######################################### Blood Pressure:Right arm 146/92 mmHg.Left arm 138/95 mmHg. Patient Status:Inpatient . Study Location:Portable. Technical Quality:Adequate visualization. Velocities are measured in cm/s ; Diameters are measured in mm CarotidRight Measurements + +------+-----+-----+---------+ + !Location !PSV !EDV !Angle!%Stenosis!Tortuosity! + +------+-----+-----+---------+ + !Prox CCA !51.71 !11.09! ! ! ! + +------+---- -+-----+---------+ + !Mid CCA !73.47 !13.63! ! ! ! + +------+-----+-----+---------+ + !Dist CCA !58.24 !14.36! ! ! ! + -----+------+-----+-----+---------+ + !Prox ICA !87.44 !25.29! ! ! ! + +------+-----+-----+---------+ + !Dist ICA !79.67 !24.25! ! ! ! + +------+-----+-----+---------+ + !Prox ECA !81.89 ! ! ! ! ! +--------- +------+-----+-----+---------+ + !Mid Vertebral !58.26 ! ! ! ! ! + +------+-----+-----+---------+ + !Mid Subclavian !118.42! ! ! ! ! + +------+-----+-----+---------+ + - There is antegrade vertebral flow noted on the right side. - Additional Measurements:ICAPSV/CCAPSV 1.5. CarotidLeft Measurements + +------+-----+-----+---------+ + !Location !PSV !EDV !Angle!%Stenosis!Tortuosity! + +------+-----+-----+---------+ + !Prox CCA !67.8 !15.16! ! ! ! + +------+-----+ -----+---------+ + !Mid CCA !76.08 !13.51! ! ! ! + +------+-----+-----+---------+ + !Dist CCA !52.88 !11.9 ! ! ! ! + ---+------+-----+-----+---------+ + !Prox ICA !55.06 !12.99! ! ! ! + +------+-----+-----+---------+ + !Dist ICA !89.4 !28.48! ! ! ! + +------+-----+-----+---------+ + !Prox ECA !346.92! ! ! ! ! + +------+-----+-----+---------+ + !Mid Vertebral !56.61 ! ! ! ! ! +--- +------+-----+-----+---------+ + !Mid Subclavian !98.84 ! !! ! ! + +------+-----+-----+---------+ + - There is antegrade vertebral flow noted on the left side. - Additional Measurements:ICAPSV/CCAPSV 1.04. Findings Right Findings Mild heterogenous hyperechoic smooth plaque in the entire CCA . Mild heterogenous hyperechoic smooth plaque in the ECA . Mild heterogenous hyperechoic irregular plaque in the proximal ICA . Left Findings Mild heterogenous hyperechoic smooth plaque in the subclavian artery . Mild heterogenous hyperechoic irregular plaque in the entire CCA . Moderate heterogenous hyperechoic irregular plaque in the ECA . Mild heterogenous hyperechoic irregular plaque in the proximal ICA . Signature -- Procedures Performed: Discharge Medications: Your medication list START taking these medications Instructions Comments Quantity Refills alfrrbwfru-egszauvacuess-qdccvevd 50-325-40 mg per tablet Commonly known as: FIORICET, ESGIC Take 1 tablet by mouth every 6 (six) hours as needed for headache for up to 3 days. Max Daily Amount: 4 tablets 12 tablet 0 clopidogreL 75 mg tablet Commonly known as: PLAVIX Take 1 tablet (75 mg total) by mouth daily Look-alike/Sound-alike medication. 0 HYDROcodone-acetaminophen 5-325 mg per tablet Commonly known as: NORCO Take 1 tablet by mouth every 6 (six) hours as needed for pain (4-6/10) for up to 3 days. Max Daily Amount: 4 tablets 12 tablet 0 insulin lispro 100 unit/mL injection Commonly known as: HUMALOG, ADMELOG Inject 0-12 Units under the skin 4 (four) times daily before meals and nightly. 0 pantoprazole 40 MG tablet Commonly known as: PROTONIX Take 1 tablet (40 mg total) by mouth Daily (0600). 0 CHANGE how you take these medications Instructions Comments Quantity Refills aspirin 81 MG EC tablet What changed: medication strength how much to take Take 1 tablet (81 mg total) by mouth daily. 0 CONTINUE taking these medications Instructions Comments Quantity Refills acetaminophen 325 MG tablet Commonly known as: TYLENOL Take 1 tablet (325 mg total) by mouth every 6 (six) hours as needed for pain. 0 alendronate 70 MG tablet Commonly known as: FOSAMAX Take 1 tablet (70 mg total) by mouth once a week Take in the morning with a full glass of water, mat empty stomach, and do not take anything else by mouth or lie down for the next 30 min.. 0 atorvastatin 80 MG tablet Commonly known as: LIPITOR Take 1 tablet (80 mg total) by mouth nightly. 0 cetirizine 10 MG tablet Commonly known as: ZyrTEC Take 1 tablet (10 mg total) by mouth daily. 0 desvenlafaxine 100 MG 24 hr tablet Commonly known as: PRISTIQ Take 1 tablet (100 mg total) by mouth daily. 0 Farxiga 10 mg tablet Generic drug: dapagliflozin propanediol Take 1 tablet (10 mg total) by mouth daily. 0 gabapentin 800 MG tablet Commonly known as: NEURONTIN Take 1 tablet (800 mg total) by mouth 3 (three) times daily for 3 days. Max Daily Amount: 2,400 mg 9 tablet 0 insulin 70/30 NPH-regular human 100 unit/mL (70-30) injection Commonly known as: HumuLIN 70/30, NovoLIN 70/30 Inject 20 Units under the skin 2 (two) times daily before meals. 0 levETIRAcetam 500 MG tablet Commonly known as: KEPPRA Take 1 tablet (500 mg total) by mouth 2 (two) times daily. 0 lisinopriL 5 MG tablet Commonly known as: ZESTRIL Take 1 tablet (5 mg total) by mouth daily. 0 melatonin 5 mg tablet Take 1 tablet (5 mg total) by mouth every night as needed for sleep. 0 NIFEdipine 30 MG 24 hr tablet Commonly known as: ADALAT CC Take 1 tablet (30 mg total) by mouth daily. 0 Qulipta 60 mg Tab Generic drug: atogepant Take 60 mg by mouth daily. 0 rimegepant 75 mg Tbdl Take 75 mg by mouth daily as needed (daily PRN). 0 tiZANidine 4 MG tablet Commonly known as: ZANAFLEX Take 1 tablet (4 mg total) by mouth 3 (three) times daily as needed for muscle spasms. 0 traZODone 150 MG tablet Commonly known as: DESYREL Take 1 tablet (150 mg total) by mouth nightly. 0 valbenazine 80 mg Cap Take 80 mg by mouth daily. 0 STOP taking these medications omeprazole 40 MG capsule Commonly known as: PriLOSEC Where to Get Your Medications These medications were [facility] [place] [address] [facility] [address] wgfjeabpyq-gygmibtpgxgft-lhpupunc 50-325-40 mg per tablet gabapentin 800 MG tablet HYDROcodone-acetaminophen 5-325 mg per tablet Information about where to get these medications is not yet available Ask your nurse or doctor about these medications aspirin 81 MG EC tablet clopidogreL 75 mg tablet insulin lispro 100 unit/mL injection pantoprazole 40 MG tablet Time Spent: > 30 min Electronically signed by Ivis Sequeira MD, 03/18/25, 1:26 PM EDT documented in this encounter Medications at Time of Discharge acetaminophen (TYLENOL) 325 MG tablet Take 1 tablet (325 mg total) by mouth every 6 (six) hours as needed for pain. alendronate (FOSAMAX) 70 MG tablet Take 1 tablet (70 mg total) by mouth once a week Take in the morning with a full glass of water, on an empty stomach, and do not take anything else by mouth or lie down for the next 30 min.. aspirin 81 MG EC tablet Take 1 tablet (81 mg total) by mouth daily. 03/18/2025 atogepant (Qulipta) 60 mg tab Take 60 mg by mouth daily. atorvastatin (LIPITOR) 80 MG tablet Take 1 tablet (80 mg total) by mouth nightly. cetirizine (ZyrTEC) 10 MG tablet Take 1 tablet (10 mg total) by mouth daily. clopidogreL (PLAVIX) 75 mg tablet Take 1 tablet (75 mg total) by mouth daily Look-alike/S ound-alike medication. 03/18/2025 dapagliflozin propanediol (Farxiga) 10 mg tablet Take 1 tablet (10 mg total) by mouth daily. desvenlafaxine (PRISTIQ) 100 MG 24 hr tablet Take 1 tablet (100 mg total) by mouth daily. insulin 70/30 NPH-regular human (HumuLIN 70/30, NovoLIN 70/30) 100 unit/mL (70-30) injection Inject 20 Units under the skin 2 (two) times daily before meals. insulin lispro (HUMALOG, ADMELOG) 100 unit/mL injection Inject 0-12 Units under the skin 4 (four) times daily before meals and nightly. 03/18/2025 levETIRAcetam (KEPPRA) 500 MG tablet Take 1 tablet (500 mg total) by mouth 2 (two) times daily. lisinopriL (ZESTRIL) 5 MG tablet Take 1 tablet (5 mg total) by mouth daily. melatonin 5 mg tablet Take 1 tablet (5 mg total) by mouth every night as needed for sleep. NIFEdipine (ADALAT CC) 30 MG 24 hr tablet Take 1 tablet (30 mg total) by mouth daily. pantoprazole (PROTONIX) 40 MG tablet Take 1 tablet (40 mg total) by mouth Daily (0600). 03/18/2025 rimegepant 75 mg TbDLIndications:m igraine Take 75 mg by mouth daily as needed (daily PRN). tiZANidine (ZANAFLEX) 4 MG tablet Take 1 tablet (4 mg total) by mouth 3 (three) times daily as needed for muscle spasms. traZODone (DESYREL) 150 MG tablet Take 1 tablet (150 mg total) by mouth nightly. valbenazine 80 mg cap Take 80 mg by mouth daily. butalbital-acetam inophen-caffeine (FIORICET, ESGIC) 50-325-40 mg per tablet Take 1 tablet by mouth every 6 (six) hours as needed for headache for up to 3 days. Max Daily Amount: 4 tablets 12 tablet 03/18/2025 5 gabapentin (NEURONTIN) 800 MG tablet Take 1 tablet (800 mg total) by mouth 3 (three) times daily for 3 days. Max Daily Amount: 2,400 mg 9 tablet 03/18/2025 5 HYDROcodone-aceta minophen (NORCO) 5-325 mg per tablet Take 1 tablet by mouth every 6 (six) hours as needed for pain (4-12/28) for up to 3 days. Max Daily Amount: 4 tablets 12 tablet 03/18/2025 5 documented as of this encounter Progress Notes * Alex Nava RN - 03/18/2025 9:44 AM EDT Discharge Plan Progress Note Chart screened. Discussed case with MD during rounds. Patient ready for D/C to SNF. Per Kandice at [facility] [phone] they have auth and can take anytime today. Entered their pharmacy, [facility], into [employer]. Spoke with Ursula Renita, she agrees with D/C to SNF, and will call her friends herself to notify andhas her cell phone in the room. She states she doesn't have any clothes and requests medium clothesif possible. Paged to request clothing, they will take clothes to patient soon. CM will fax D/C Summary to [phone] when approved by D/C Pharmacist. Then Nursing can call report to [phone]. Patient will require w/c transport. Notified MD, Nursing, D/C Pharmacist, and Transport BUSINESS PROCESS LEAD of these plans. IMM delivered to patient. Patient signed IMM. Signed copy placed in chart. Case Management will follow until departure. Addendum 03-18-25 @ 12:00: Wheelchair transport scheduled with Nikole today 03-18-25 @ 14:00. [facility] of these plans. Addendum 03-18-25 @ 13:56: CM faxed D/C Summary to [place] and to [facility] CM July. Alex Nava RN * GEE Mora/Robert - 03/17/2025 2:53 PM EDT [facility] CARDIAC TELEMETRY Inpatient Occupational Therapy Treatment Note Patient Name: Citlali Maravilla Date of : 1965 Date of Treatment: 03/17/25 Start Time: 1430 Stop Time: 1453 Session Duration: 23 minutes This patient is a 60 y.o. female admitted on 03/14/2025 with Internal carotid artery stenosis [I65.29] Carotid stenosis, right [I65.21]. No past medical history on file. No past surgical history on file. General Visit type: Treatment Approved by: Nurse Pringle Patient disposition upon entry: Patient verified by name, Patient verified by date of , Supinein bed Co-treated by: ONCOLOGY NURSE Precautions Weightbearing status: No restrictions Precautions: Fall risk Isolation precautions: Standard LDA/Brace/Protective equipment: Lines, drains, and airways: external urinary catheter , peripheral IV Subjective Subjective: Pt agreeable Pain No-patient has no complaints of pain Cognition Cognition: Following commands: Follows one step commands with increased time Follows one step commands with repetition Impulsive: Mildly impulsive Objective Vitals Vital signs stable throughout, no adverse reaction during activity Bed Mobility Supine to sit: Standby assist Sit to supine: Standby assist Transfers Sit to stand:Contact guard Stand to sit:Contact guard Functional mobility:Minimal assistance, Rolling walker used ADLs Toileting:Standby Assist Balance Static sitting balance:Good: Patient able to maintain balance without handheld support; limited postural sway Dynamic sitting balance:Good: Patient accepts moderate challenge; able to maintain balance while picking object off the floor Static standing balance:Fair: Patient able to maintain balance with handheld support, may require occasional minimal assistance Dynamic standing balance:Fair: Patient accepts minimal challenge; able to maintain balance while turning head/trunk Activity Tolerance Patient limited with activity/intervention due to deconditioning and weakness Treatment Pt supine upon arrival. Pt SBA supine to sit. Pt SBA to complete pericare after Purewik leaked. Pt ambulated in room and hallway with min A using RWx. Pt returned to room, left EOB with needs met andCL in reach. Assessment Assessment Patient demonstrated improved performance during this treatment session. Patient continues to present with decreased strength, decreased endurance, decreased safety awareness. These deficits currently impact the patient's ability to perform ADLs and functional mobility, putting them at an increasedrisk for increased falls, decreased quality of life, increased caregiver burden. Patient will benefit from continued OT services to address the aforementioned functional deficits. Plan Recommendations Discharge recommendations: Patient would benefit from 1-2 hours of multidisciplinary therapy per day upon discharge from acute care setting to assist with returning to prior level of functioning. DME recommendations: Unable to make adaptive/DME recommendations at this time. Treatment Plan: Continue OT POC OT Frequency/Duration: 3x/week for 14 days Goals Upper body dressing: donning and doffing upper body dressing clothing, sitting edge of bed independently. Lower body dressing: donning and doffing lower body clothing, sitting edge of bed with standby assist. Toileting: toileting with contact guard assist. Functional transfers: ambulatory transfer with contact guard assist. Target Date: 03/30/2025 Goals were discussed with patient Progress towards goals: progressing Education Patient educated on role of occupational therapy, patient's plan of care, fall prevention and following, they were able to verbalize understanding. Interdisciplinary Communication Following treatment, therapist communicated with nursing regarding patient's performance during therapy session. Patient Disposition Upon Leaving Patient Disposition: Supine in bed, All needs met and within reach, Call light/pull cord in reach If this patient discharges prior to next therapy session, this note serves as the patient's discharge summary. Electronically signed by ANDRES Mora - 03/17/2025 - 3:00 PM EDT * Pooja Ragsdale, ONCOLOGY NURSE - 03/17/2025 2:30 PM EDT Images from the original note were not included. Inpatient Physical Therapy Treatment Patient Name: Citlali Maravilla Date of : 1965 Date of Treatment: 03/17/25 Start Time 1430 Stop Time 1453 Session Duration 23 minutes General Visit Type: Treatment Approved By: Nurse Mitchell Patient Disposition Upon Entry: Supine in bed, Call Light/Pull Cord in reach, All needs met and within reach, Bed Alarm applied Patient Verified By: Name and Date of Co-treated by: OT Precautions Weight-Bearing Status: Full Weight Bearing (FWB) Precautions: Fall risk Isolation Precautions: Standard Lines, tubes, drains, airway: Purewick, telemetry Subjective Subjective: Patient agreeable to physical therapy treatment. Pain No - Patient not reporting pain at this time Cognition Overall cognitive status: Impaired Following commands: Follows one step commands with increased time Objective Functional Mobility Bed Mobility: Supine to Sit: minimal assistance Sit to Supine: stand by assist Transfers Sit to Stand: minimal assistance, gait belt used, rolling walker used Stand to Sit: contact guard assist, gait belt used, rolling walker used Gait Gait Assistance: contact guard assist Assistive Device: Gait Belt, Rolling walker Distance: 50ft x2 Gait speed: slowed Deviation(s): Comment: exaggerated foot clearance on LLE and poor proprioception of BLE when stepping; increased trunk flexion Stair Management Not addressed today. Focus of treatment today on gait training. Wheelchair Mobility Not assessed, patient ambulatory. AM-PAC Basic Mobility Inpatient Short Form How much difficulty does the patient currently have: Turning over in bed (including adjusting bedclothes, sheets, and blankets)? (1) Total/Unable (not able to do the activity or can only perform the activity using assistive devices or requires assistance from another person, including supervision or cueing for safety) Sitting down on and standing up from a chair with arms (e.g., wheelchair, bedside commode, etc.)? (1) Total/Unable (not able to do the activity or can only perform the activity using assistive devices or requires assistance from another person, including supervision or cueing for safety) Moving from lying on back to sitting on side of bed? (1) Total/Unable (not able to do the activity or can only perform the activity using assistive devices or requires assistance from another person,including supervision or cueing for safety) How much help from another person does the patient currently need: Moving to and from a bed to a chair (including a wheelchair)? (3) A little (Minimal/Contact guard/Supervision/Setup) Need to walk in hospital room? (3) A little (Minimal/Contact guard/Supervision/Setup) Climbing 3-5 steps with a railing? (3) A little (Minimal/Contact guard/Supervision/Setup) Score Raw score=12 t-Scale score=35.33 Standard error=3.08 [facility] 0-100%=68.66% MDC=4.72 A raw score of >= 16 is significantly associated with increased odds of discharge to home in addition to consideration made for the patient's cognition and social determinants of health. Balance Static/dynamic sitting and static/dynamic standing balance grades Balance Grade Sitting Static Good - patient able to maintain balance without handhold support, limited postural sway Sitting Dynamic Good - patient accepts moderate challenge; able to maintain balance while picking object off floor Standing Static Good - patient able to maintain balance without handhold support, limited postural sway Standing Dynamic Fair - patient accepts minimal challenge; able to maintain balance while turning head/trunk Activity Tolerance Patient limited with activity/intervention due to fatigue Treatment Patient states her purewick had leaked upon arrival and gown was changed ; patient was able to washherself up when given washcloth ; chux changed when patient stood Assessment Patient has not yet met goals for therapy and would benefit from rehab placement upon discharge to improve functional mobility towards PLOF Plan Treatment plan: Continue per plan of care. PT Frequency/Duration: 5x/week for 14 days Recommendations Discharge recommendations: Patient would benefit from 1-2 hours of multidisciplinary therapy per day upon discharge from acute care setting to assist with returning to prior level of functioning. DME recommendations: Patient has no DME/adaptive equipment discharge needs at this time. Goals [id number]-[id number]: By the target date, patient will perform gcwqbl-vr-fwi with complete independence, utilizing no assistive device, to improve independence with bed mobility and improve overall comfort and well-being. Mdz-tn-[id number]: By the target date, patient will perform sit to stand with modified independence and rolling walker to improve independence with functional mobility, improve quality of life, and improve ability to participate in activities of daily living that require standing. Gait: Patient will ambulate 150' with supervision and utilizing rolling walker in order to improve balance with ambulation and decrease risk of falling, improve quality of life, and improve ability to ambulate household distances Stairs: By the target date, patient will negotiate 3 step(s), with a step-to pattern, utilizing bilateral railing and modified independence, to demonstrate ability to safely negotiate stairs at home. Target Date: 03/30/2025 Progress towards goals: progressing Education Patient educated on ambulation, transfers, and bed mobility and following, they were able to demonstrate understanding. No further questions or concerns stated. Interdisciplinary Communication Following treatment, therapist communicated with nursing by completing communication whiteboard in room. Patient Disposition Upon Leaving Supine in bed, Call Light/Pull Cord in reach, All needs met and within reach, Bed Alarm applied If this patient discharges prior to next therapy session, this note serves as the patient's discharge summary. Electronically signed by Pooja Ragsdale PTA - 03/17/25 - 3:00 PM EDT Cosigned by Wing Bro PT at 03/22/2025 11:11 AM EDT Associated attestation - Wing Bro PT - 03/22/2025 10:11 AM CDT I, Wing Bro PT, DPT, reviewed the notes, assessments, and/or procedures performed by Pooja Ragsdale PTA, I concur with their documentation of Citlali Maravilla. Electronically signed by Wing Bro PT, DPT - 03/22/25 - 11:11 AM EST * Ivis Sequeira MD - 03/17/2025 10:10 AM EDT [facility] MEDIC[facility] PROGRESS NOTE: Patient: Citlali Maravilla Date: 03/17/2025 ASSESSMENT and PLAN: Citlali Maravilla is a 60 y.o. female with a history of meningioma status postresection from 2017, history of CVA, seizure, tardive dyskinesia who presented on 03/14/2025 with headache and slurred speech and also found to carotid stenosis so transferred to us for neurosurgeon and the mold capper Consult DIAGNOSIS: Ruled out Internal carotid artery stenosis Hypotension today Headache/recurrent falls-chronic History of CVA with residual deficits Tardive dyskinesia History of meningioma Type 2 diabetes Hypertension Hyperlipidemia GERD Mood disorder PLAN: Hold lisinopril Cont nifedipine now Carotid Doppler and MRI report unremarkable Cardiology signed off Insulin sliding scale Increase NPH 70/30 to 8 U bid Continue Lipitor aspirin Continue Keppra at home dosage PT/OT Discussed with watch case polisher try to get the patient to fpc DVT Prophylaxis: SCD CODE STATUS : full Previous Living Condition: home Expected Disposition: alf or rehab Expected Discharge Date: Subjective Patient seen and examined at bedside this AM. Patient awake alert talking headache much improving BP mild low today Objective Vitals: Temp: [97.3 ??F (36.3 ??C)-97.7 ??F (36.5 ??C)] 97.3 ??F (36.3 ??C) Pulse: [58-102] 69 Resp: [18] 18 BP: (77-182)/(49-162) 77/49 Intake/Output: Intake/Output Summary (Last 24 hours) at 03/17/2025 0756 Last data filed at 03/16/2025 1800 Gross per 24 hour Intake 815 ml Output 1500 ml Net -685 ml Physical exam: General: Looks comfortable and mild distress HEENT: Head atraumatic, normal cephalic. Neck: Supple. No JVD noted CVS: S1, S2, no S3 or S4. Regular rate and rhythm no murmur. Lungs: Bilateral air entry. Normal chest expansion. Clear to auscultation bilaterally. Abdomen: Soft. Nontender. Positive bowel sounds. CASING FLUSHER: Awake alert talking but mild no gross neurological focal deficits. Musculoskeletal: Range of motion is normal. No pedal edema. Skin: Warm and dry on exposed surface. Psychiatry: Mild agitation Medications: Scheduled Meds: aspirin 325 mg oral Daily 325 mg at 03/16/25 0939 atorvastatin 80 mg oral Every Night 80 mg at 03/16/252152 [Held by provider] dapagliflozin propanediol 10 mg oral Daily desvenlafaxine 100 mg oral Daily 100 mg at 03/16/25937 gabapentin 800 mg oral TID 800 mg at 03/16/252152 insulin 70/30 NPH-regular human 5 Units subcutaneous BID AC 5 Units at 03/17/25631 insulin regular 0-12 Units subcutaneous Q6H ZANDER 4 Units at 03/17/25631 levETIRAcetam 500 mg oral BID 500 mg at 03/16/252152 [Held by provider] lisinopriL 10 mg oral Daily 10 mg at 03/16/25937 NIFEdipine 30 mg oral Daily 30 mg at 03/16/25937 pantoprazole 40 mg oral Daily 40 mg at 03/16/25937 traZODone 150 mg oral Every Night 150 mg at 03/16/252152 valbenazine 80 mg oral Daily Continuous Infusions: Current Facility-Administered Medications Medication Dose Route Frequency Provider Last Rate Last Admin acetaminophen (TYLENOL) tablet 1,000 mg 1,000 mg oral Q6H PRN Rupert Meek PA-C aspirin EC tablet 325 mg 325 mg oral Daily Rupert Meek PA-C 325 mg at 03/16/25938 atorvastatin (LIPITOR) tablet 80 mg 80 mg oral Every Night Rupert Meek PA-C 80 mg at 03/16/252152 rmdfeqbcko-jhztnoveqkwjq-sjstsnon (FIORICET,ESGIC) tablet 1 tablet oral Q4H PRN Ivis Sequeira MD 1 tablet at 03/16/25 0106 [Held by provider] dapagliflozin propanediol (FARXIGA) tablet 10 mg 10 mg oral Daily Rupert Meek PA-C desvenlafaxine (PRISTIQ) ER 24 hr tablet 100 mg 100 mg oral Daily Rupert Meek PA-C 100 mg at 03/16/25 0938 dextrose 50% (D50W) injection 25 g 25 g intravenous Q15 Min PRN Rupert Meek PA-C gabapentin (NEURONTIN) capsule 800 mg 800 mg oral TID Rupert Meek PA-C 800 mg at 03/16/252152 glucagon injection 1 mg 1 mg intraMUSCULAR Q15 Min PRN Rupert Meek PA-C glucose chew tab 16 g 16 g oral Q15 Min PRN Rupert Meek PA-C hydrALAZINE (APRESOLINE) injection 10 mg 10 mg intravenous Q6H PRN Rupert Meek PA-C 10 mg at 03/14/25 0540 HYDROcodone-acetaminophen (NORCO) 5-325 mg per tablet 1 tablet 1 tablet oral Q6H PRN Rupert Meek PA-C 1 tablet at 03/16/25 0306 hydrOXYzine (ATARAX) tablet 25 mg 25 mg oral Q8H PRN Rupert Meek PA-C 25 mg at 03/14/252028 insulin 70/30 NPH-regular human (HumuLIN 70/30, NovoLIN 70/30) injection 5 Units 5 Units subcutaneous BID Ivis Sequeira MD 5 Units at 03/17/25 0632 insulin regular (HUMULIN R,NOVOLIN R) injection 0-12 Units subcutaneous Q6H [facility] Rupert Meek PA-C 4 Units at 03/17/25 0632 levETIRAcetam (KEPPRA) tablet 500 mg 500 mg oral BID Rupert Meek PA-C 500 mg at 03/16/252152 [Held by provider] lisinopriL (ZESTRIL) tablet 10 mg 10 mg oral Daily Nona Garza PA-C 10 mg at 03/16/25 0938 magnesium sulfate IVPB 2 g in sterile water 50 mL (premix) 2 g intravenous Daily PRN Rupert Meek PA-C magnesium sulfate IVPB 2 g in sterile water 50 mL (premix) 2 g intravenous BID PRN Rupert Meek PA-C melatonin tablet 3 mg 3 mg oral Every Night PRN Rupert Meek PA-C 3 mg at 03/16/252152 morphine injection 2 mg 2 mg intravenous Q6H PRN Rupert Meek PA-C naloxone (NARCAN) injection 0.2 mg 0.2 mg intravenous Q2 Min PRN Rupert Meek PA-C NIFEdipine (PROCARDIA-XL) 24 hr tablet 30 mg 30 mg oral Daily Rupert Meek PA-C 30 mg at 03/16/25 0938 ondansetron (ZOFRAN-ODT) disintegrating tablet 4 mg 4 mg oral Q8H PRN Rupert Meek PA-C Or ondansetron (ZOFRAN) injection 4 mg 4 mg intravenous Q8H PRN Rupert Meke PA-C pantoprazole (PROTONIX) EC tablet 40 mg 40 mg oral Daily Rupert Meek PA-C 40 mg at 03/16/25 0938 potassium chloride (KLOR-CON) ER tablet 40 mEq 40 mEq oral 4x Daily PRN Rupert Meek PA-C potassium chloride IVPB 10 mEq in 100 mL sterile water (premix) 10 mEq intravenous Q1H PRN Rupert Meek PA-C sodium chloride flush 10 mL 10 mL intravenous PRN Rupert Meek PA-C tiZANidine (ZANAFLEX) tablet 4 mg 4 mg oral TID PRN Rupert Meek PA-C 4 mg at 03/14/252029 traZODone (DESYREL) tablet 150 mg 150 mg oral Every Night Rupert Meek PA-C 150 mg at 03/16/252152 valbenazine cap 80 mg PATIENT'S OWN MEDICATION SUPPLY 80 mg oral Daily Rupert Meek PA-C PRN Meds: @MEDSPRN@ Labs: Results for orders placed or performed during the hospital encounter of 03/14/25 (from the past 24 hours) Glucose, Nova Meter Status: Abnormal Collection Time: 03/16/25 11:39 AM Result Value Ref Range POC-GLUCOSE 324 (H) 70 - 110 mg/dL Pharmacy Informaticist [id number] Glucose, Nova Meter Status: Abnormal Collection Time: 03/16/25 3:32 PM Result Value Ref Range POC-GLUCOSE 303 (H) 70 - 110 mg/dL Pharmacy Informaticist [id number] Glucose, Nova Meter Status: Abnormal Collection Time: 03/16/25 8:53 PM Result Value Ref Range POC-GLUCOSE 249 (H) 70 - 110 mg/dL Pharmacy Informaticist [id number] Glucose, Nova Meter Status: Abnormal Collection Time: 03/17/25 12:20 AM Result Value Ref Range POC-GLUCOSE 242 (H) 70 - 110 mg/dL Pharmacy Informaticist [id number] Glucose, Nova Meter Status: Abnormal Collection Time: 03/17/25 5:56 AM Result Value Ref Range POC-GLUCOSE 209 (H) 70 - 110 mg/dL Pharmacy Informaticist [id number] Radiology: Radiology Results (last 3 days) Procedure Component Value Units Date/Time MRI BRAIN STEALTH W WO CONTRAST [[id number]] Collected: 03/14/25 1604 Order Status: Completed Updated: 03/14/25 1615 Narrative: MRI OF THE BRAIN WITH AND WITHOUT CONTRAST HISTORY: Acute headache. COMPARISON: March 2014. PROCEDURE: Multiplanar MR imaging of the brain was performed in multiple MR sequences, precontrast and postcontrast administration. A Stealth protocol was utilized. FINDINGS: Limited images the proximal cord are unremarkable. The ventricles are enlarged. There is diffuse atrophy. There is moderate periventricular and deep white matter change likely related to small vessel disease. There is no extra-axial fluid or midline shift. There is no evidence of acute hemorrhage. Flow-voids are appropriate. Diffusion-weighted images demonstrate no evidence of acute CVA. Limited images of the paranasal sinuses are unremarkable. Postcontrast images demonstrate no abnormal enhancement. 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 There is encephalomalacia and a craniotomy defect in the left frontal lobe consistent with remote lesion resection. Impression: Atrophy and periventricular white matter change without acute process. Images reviewed, interpreted, and dictated by America Galeano MD CAROTID BLOOD FLOW BILATERAL [[id number]] Collected: 03/14/25 1122 Order Status: Completed Updated: 03/14/25 1319 Narrative: Vascular Carotid Procedure Demographics Patient Name RENITA BEATTY Age 60 Patient Number [id number] Gender Female Race Unknown Ethnicity [employer] ID [id number] Height 62 Date of 1965 Weight 121 Accession Number [id number] BSA 1.54 m^2 Room Number 308 BMI 22.13 kg/m^2 Referring IVIS SEQUEIRA MD Interpreting KRIS GAN MD Physician Physician Burner Shaft TYLER DaviesS Procedure Type of Study: Cerebral: Carotid, US CAROTID BLOOD FLOW BILATERAL. Impressions Summary ######################################### INDICATION: I65.23 Occlusion and stenosis of bilateral carotid arteries. . RIGHT: < 50% (non flow restricting) stenosis of the internal carotid artery. Normal antegrade vertebral flow. No evidence of subclavian steal. Area of interest noted in the right thyroid measuring 1.52cm x 1.60cm, flow noted within. LEFT: < 50% (non flow restricting) stenosis of the internal carotid artery. Normal antegrade vertebral flow. No evidence of subclavian steal. ######################################### Blood Pressure:Right arm 146/92 mmHg.Left arm 138/95 mmHg. Patient Status:Inpatient . Study Location:Portable. Technical Quality:Adequate visualization. Velocities are measured in cm/s ; Diameters are measured in mm Carotid Right Measurements + +------+-----+-----+---------+ + !Location !PSV !EDV !Angle!%Stenosis!Tortuosity! + +------+-----+-----+---------+ + !Prox CCA !51.71 !11.09! ! ! ! + +------+-----+-----+---------+ + !Mid CCA !73.47 !13.63! ! ! ! + +------+-----+-----+---------+ + !Dist CCA !58.24 !14.36! ! ! ! + +------+-----+-----+---------+ + !Prox ICA !87.44 !25.29! ! ! ! + +------+-----+-----+---------+ + !Dist ICA !79.67 !24.25! ! ! ! + +------+-----+-----+---------+ + !Prox ECA !81.89 ! ! ! ! ! + +------+-----+-----+---------+ + !Mid Vertebral !58.26 ! ! ! ! ! + +------+-----+-----+---------+ + !Mid Subclavian !118.42! ! ! ! ! + +------+-----+-----+---------+ + - There is antegrade vertebral flow noted on the right side. - Additional Measurements:ICAPSV/CCAPSV 1.5. Carotid Left Measurements + +------+-----+-----+---------+ + !Location !PSV !EDV !Angle!%Stenosis!Tortuosity! + +------+-----+-----+---------+ + !Prox CCA !67.8 !15.16! ! ! ! + +------+-----+-----+---------+ + !Mid CCA !76.08 !13.51! ! ! ! + +------+-----+-----+---------+ + !Dist CCA !52.88 !11.9 ! ! ! ! + +------+-----+-----+---------+ + !Prox ICA !55.06 !12.99! ! ! ! + +------+-----+-----+---------+ + !Dist ICA !89.4 !28.48! ! ! ! + +------+-----+-----+---------+ + !Prox ECA !346.92! ! ! ! ! + +------+-----+-----+---------+ + !Mid Vertebral !56.61 ! ! ! ! ! + +------+-----+-----+---------+ + !Mid Subclavian !98.84 ! ! ! ! ! + +------+-----+-----+---------+ + - There is antegrade vertebral flow noted on the left side. - Additional Measurements:ICAPSV/CCAPSV 1.04. Findings Right Findings Mild heterogenous hyperechoic smooth plaque in the entire CCA . Mild heterogenous hyperechoic smooth plaque in the ECA . Mild heterogenous hyperechoic irregular plaque in the proximal ICA . Left Findings Mild heterogenous hyperechoic smooth plaque in the subclavian artery . Mild heterogenous hyperechoic irregular plaque in the entire CCA . Moderate heterogenous hyperechoic irregular plaque in the ECA . Mild heterogenous hyperechoic irregular plaque in the proximal ICA . Signature Signed: 03/17/2025 * Alex Nava RN - 03/17/2025 9:00 AM EDT Discharge Plan Progress Note Received notification from Kandice at [facility] [place] [phone] they accept and will initiate auth. Patient will require transport. Notified Ms Maravilla she agrees with these plans. Nursing notified. Will notify MD during rounds. Case Management will follow. Alex Nava RN * Gloria Romo OTR/L - 03/16/2025 2:55 PM EDT Images from the original note were not included. Inpatient Occupational Therapy Multidisciplinary Collaboration Pt yelling, Help! Someone help me in here! As OT passing room. OT entered room, pt wanted a water, sprite, and crackers. OT obtained items and provided pt with SUA. Notified RN. 8 minutes spent fornursing collaboration, thorough chart and systems review, and clinical reasoning in direct relationto patient care. 1 zero charges dropped to account for therapist's time. Electronically signed by GEE Lux/Robert - 03/16/2025 - 2:56 PM EDT * Alex Nava RN - 03/16/2025 2:41 PM EDT Discharge Plan Progress Note Received voice mail from Petra at [facility] in [place] expressing interest. Called Petra [phone], discussed needs for short term skilled rehab initially and then [facility]. Faxed additional clinical to her at . Updated patient. She is reluctant to go out of [facility]. Discussed that CM will continue to seek a bed in [facility]. Further discussed that [facility] scarce and she may notbe able to find one in [facility]. Patient agrees with plans. Case Management will follow. Addendum 03-16-25 @ 15:07: Howard Ramirez at [facility] [phone] their [place] facility in [facility] can accommodate possible LTC. Alex Nava RN * Pooja Falcon, PT - 03/16/2025 1:42 PM EDT Images from the original note were not included. Inpatient Physical Therapy Reassessment This note will serve as a reassessment in order to update the patient's goals, target date for goals, and overall plan of care to appropriately reflect current presentation and participation in skilled Physical Therapy services. Patient Name: Citlali Maravilla Date of : 1965 Date of Reassessment: 03/16/25 In Time 1040 Out Time 1123 Session Duration 43 minutes Time spent for nursing collaboration, chart and systems review, and clinical reasoning. 5 minutes Total Time 48 minutes General Visit Type: Reassessment Approved By: Nurse Mueller Patient Disposition Upon Entry: Supine in bed, Call Light/Pull Cord in reach, All needs met and within reach, Nursing aware/notified Patient Verified By: Name and Date of Co-treated by: OT Precautions Weight-Bearing Status: No Restrictions Precautions: Fall risk Isolation Precautions: Standard Subjective Subjective: Patient agreeable to physical therapy evaluation and treatment. Pain No - Patient not reporting pain at this time Cognition Overall cognitive status: Impaired Arousal/Alertness: Irritable Following commands: Follows one step commands with increased time Follows one step commands consistently Objective Vitals Stable throughout Functional Mobility Bed Mobility Supine to Sit: supervision Sit to Supine: supervision, use of bed features Transfers Sit to Stand: minimal assistance, 1-person assist, gait belt used, rolling walker used Stand to Sit: minimal assistance, 1-person assist, gait belt used, rolling walker used Gait Gait Assistance: contact guard assist Assistive Device: Gait Belt, Rolling walker Distance: 50' Gait speed: decreased Deviation(s): exaggerated foot clearance on LLE and poor proprioception of BLE when stepping Stair Management Not addressed today. Focus of treatment today on gait training. Wheelchair Mobility Not assessed, patient ambulatory. AM-PAC Basic Mobility Inpatient Short Form How much difficulty does the patient currently have: Turning over in bed (including adjusting bedclothes, sheets, and blankets)? (1) Total/Unable (not able to do the activity or can only perform the activity using assistive devices or requires assistance from another person, including supervision or cueing for safety) Sitting down on and standing up from a chair with arms (e.g., wheelchair, bedside commode, etc.)? (1) Total/Unable (not able to do the activity or can only perform the activity using assistive devices or requires assistance from another person, including supervision or cueing for safety) Moving from lying on back to sitting on side of bed? (1) Total/Unable (not able to do the activity or can only perform the activity using assistive devices or requires assistance from another person,including supervision or cueing for safety) How much help from another person does the patient currently need: Moving to and from a bed to a chair (including a wheelchair)? (3) A little (Minimal/Contact guard/Supervision/Setup) Need to walk in hospital room? (3) A little (Minimal/Contact guard/Supervision/Setup) Climbing 3-5 steps with a railing? (1) Total/Unable (Total assist/dependent) Score Raw score=10 t-Scale score=32.29 Standard error=3.42 CMS 0-100%=76.75% MDC=4.72 A raw score of >= 16 is significantly associated with increased odds of discharge to home in addition to consideration made for the patient's cognition and social determinants of health. Balance Static/dynamic sitting and static/dynamic standing balance grades Balance Grade Sitting Static Good - patient able to maintain balance without handhold support, limited postural sway Sitting Dynamic Good - patient accepts moderate challenge; able to maintain balance while picking object off floor Standing Static Fair - patient able to maintain balance with handhold support; may require occasional minimal assistance Standing Dynamic Fair - patient accepts minimal challenge; able to maintain balance while turning head/trunk Activity Tolerance Patient limited with activity/intervention due to fatigue Treatment Pt supine in bed upon entry, irritable. Discussed purpose of PT/OTs presence and goals for session today. Let pt finish lunch while setting up room and pt was much more agreeable to participate with therapy. Stood twice from bed for practice with hand placement and ambulated in [place] with verbal cues for normalizing gait pattern. Returned to supine in bed and positioned for comfort with all needs within reach prior to exit. Assessment Due to pt's decreased need for assist during mobility, will decrease POC to 5x/week. Patient presenting with decreased activity tolerance, generalized weakness with functional activities, impaired dynamic balance with ambulation, and fatigue with physical exertion. Because of this, patient would have difficulty with independently performing bed mobility, transferring, ambulating on level surfaces, and ambulating on uneven surfaces. These functional limitations put the patient at an increased risk for loss of independence with functional mobility and activities of daily living and falling. Patient would benefit from skilled physical therapy services during length of stay for strengthening, balance training to decrease risk of falling, endurance training to improve activity tolerance, gait training, and progression of mobility. Problems: Decreased core stability, Decreased functional mobility, Decreased gait tolerance, Decreased strength, Decreased activity tolerance, Impaired sitting balance, Impaired standing balance, Impaired dynamic balance, Gait impairment Rehab potential: Good for stated goals Plan Treatment Plan: Therapeutic Exercise, Therapeutic Activity, Gait Training, Neuromuscular Re-education, Transfer Training, Balance Training, Stair Training, Strengthening, Co-Treat with OT PT Frequency/Duration: 5x/week for 14 days Recommendations Discharge recommendations: Patient would benefit from 1-2 hours of multidisciplinary therapy per day upon discharge from acute care setting to assist with returning to prior level of functioning. DME recommendations: Unable to make recommendations at this time. Goals Axnmkz-ui-jih: By the target date, patient will perform kthcgc-dz-nls with complete independence, utilizing no assistive device, to improve independence with bed mobility and improve overall comfort and well-being. Kxk-sc-vgbjp: By the target date, patient will perform sit to stand with modified independence and rolling walker to improve independence with functional mobility, improve quality of life, and improve ability to participate in activities of daily living that require standing. Gait: Patient will ambulate 150' with supervision and utilizing rolling walker in order to improve balance with ambulation and decrease risk of falling, improve quality of life, and improve ability to ambulate household distances Stairs: By the target date, patient will negotiate 3 step(s), with a step-to pattern, utilizing bilateral railing and modified independence, to demonstrate ability to safely negotiate stairs at home. Target Date: 03/30/2025 Goals were discussed with patient Education Patient educated on safety, use of call button, role of physical therapy, plan of care, ambulation,and transfers and following, they were able to verbalize understanding. No further questions or concerns stated. Interdisciplinary Communication Following treatment, therapist communicated with nursing regarding patient's performance during physical therapy session and regarding patient's level of assistance needed during transfers for nursing mobility. Patient Disposition Upon Leaving Call Light/Pull Cord in reach, All needs met and within reach, Nursing aware/notified If this patient discharges prior to next therapy session, this note serves as the patient's discharge summary. Electronically signed by Pooja Falcon, PT - 03/16/25 - 1:42 PM EDT * Alex Nava RN - 03/16/2025 12:19 PM EDT Discharge Plan Progress Note CNM seeking SNF placement. Patient initially needs short term skilled rehab, then patient would prefer [place] [facility]. Donna at [facility] declines d/t no LTC beds for after rehab. Voice mail left for admissions [facility] . Voice mail left for admissions at [facility] [phone]. Expanded search to 30 mile radius. Updated patient's Diabetes Territory Manager from the brain injury program, [facility] [phone]. Case Management will follow. Alex Nava RN * GEE Lux/Robert - 03/16/2025 11:23 AM EDT Images from the original note were not included. [facility] CARDIAC TELEMETRY Inpatient Occupational Therapy Initial Evaluation Patient Name: Citlali Maravilla Date of : 1965 Date of Evaluation: 03/16/25 Start Time: 1040 Stop Time: 1123 Session Duration: 43 minutes Total time: 53 minutes spent, including 10 minutes for nursing collaboration, thorough chart and systems review, and clinical reasoning. This patient is a 60 y.o. female admitted on 03/14/2025 with Internal carotid artery stenosis [I65.29] Carotid stenosis, right [I65.21]. No past medical history on file. No past surgical history on file. General Visit type: Initial Evaluation Approved by: Nurse Mueller Patient disposition upon entry: Patient verified by name, Patient verified by date of , Supinein bed Co-treated by: PT Precautions Weightbearing status: No restrictions Precautions: Fall risk Isolation precautions: Standard Subjective Subjective: Pt agreeable Pain No-patient has no complaints of pain Cognition Cognition: Overall cognitive status: Impaired Following commands: Able to follow commands appropriately with verbal cueing Follows one step commands with increased time Follows one step commands with repetition Safety judgment: Decreased awareness of need for safety Home Living Hx obtained from PT umesh. Pt limited by cognition, accuracy of information is unknown. Lives with: Friend(s) Home Type: House Home Layout: One level Stairs to enter: 3 step(s) Stairs inside home: none Home Equipment: Rollator Functional Mobility PLOF: Patient reports being modified independent with all functional mobility with the use of Rollator Activities of Daily Living PLOF: Patient reports being modified independent with all ADL's with theuse of assistance from friends for dressing and bathing Does the patient have a recent history of falls?: Unknown Objective Vitals Vital signs stable throughout, no adverse reaction during activity Range of Motion Assessment Functional with limitations: Patient is able to use bilateral upper extremities for reaching/grasping/holding objects at or below shoulder level, but not above Strength Assessment Fair: Patient is able to use arms to pull, push, and hold minimal resistance at elbow and wrist, but shows increased weakness at shoulders and is unable to take resistance Coordination/Sensation Coordination: The patient has fine motor coordination as deficits noted by weakness. Finger opposition: LUE (2) Moderate Impairment: Able to accomplish activity; movements are slow, awkward, and unsteady, RUE (3) Minimal Impairment: Able to accomplish activity; slightly less than normal control, speed, and steadiness Sensation: Reports neuropathy in bilateral hands and feet. Bed Mobility Supine to sit: Supervision Sit to supine: Supervision Transfers Sit to stand:Minimal assistance, Gait belt used, Rolling walker used Stand to sit:Minimal assistance, Gait belt used, Rolling walker used ADLs Feeding:Setup Grooming:Minimal Assistance Toileting:Total Assistance Outcome Measures [facility] Daily Living Functional Assessment How much help from another person does the patient currently need: Putting on and taking off regular lower body clothing? 2 Bathing, including washing, rinsing, and drying? 2 Toileting, including using toilet, bedpan or urinal? 1 Putting on and taking off regular upper body clothing? 3 Taking care of personal grooming such as brushing teeth? 3 Eating meals? 3 1=Total/Unable (Total assist/Dependent) 2=A lot (Maximal/Moderate assist) 3=A little (Minimal/Contact guard/Supervision/Setup) 4=None (Modified independent/Independent) The patient's [facility] raw score is 14. The patient currently has 59.67% functional impairment. Clinicians are most likely to recommend inpatient/SNF/[place] [facility] care for patients with scores between 6-17, home health for scores between 18-22, and routine discharge for scores above 22. Balance Static sitting balance:Good: Patient able to maintain balance without handheld support; limited postural sway Dynamic sitting balance:Fair: Patient accepts minimal challenge; able to maintain balance while turning head/trunk Static standing balance:Fair: Patient able to maintain balance with handheld support, may require occasional minimal assistance Dynamic standing balance:Poor: Patient unable to accept challenge or move without loss of balance Activity Tolerance Patient limited with activity/intervention due to fatigue, deconditioning, weakness, and cognitive impairment Treatment Pt supine in bed, stating she does not think her purewick is working. Pt initially aggravated because therapy interrupted her eating a sandwich. OT/PT allowed pt time to finish, then she was agreeable to participate, and pleasant throughout session. Pt performed supine>sit with supervision, and required total assist for toilet hygiene tasks in standing. STS with min assist. Ambulated less thanhousehold distance using RW with min assist for walker management and balance. Performed grooming tasks at EOB with min assist. Donned clean gown with min assist. New purewick applied. Pt left supinein bed with CL in reach and all needs met. Assessment Assessment Prior to admission, patient was independent with ADLs, was independent with functional mobility. Currently the patient presents with decreased balance , decreased safety awareness , difficulty with ADLs, fall risk, impaired cognition, impaired endurance, impaired functional mobility, impaired IADLs, impaired strength , impaired UE coordination, increased pain. These deficits currently impact the patient's ability to perform ADLs and functional mobility, putting them at an increased risk for increased falls, decreased quality of life, poor outcomes, increased risk of pressure injury, further functional decline, further decreased strength, increased caregiver burden, other medical complications. The patient has fair rehab potential and would benefit from OT services to address the aforementioned functional deficits in order to return to prior level of function. The patient's current AMPAC score of 14 would indicate that the patient will likely be appropriate for inpatient rehab/SNF/ [facility] care post hospitalization. Plan Recommendations Discharge recommendations: Patient would benefit from 1-2 hours of multidisciplinary therapy per day upon discharge from acute care setting to assist with returning to prior level of functioning. DME recommendations: Unable to make adaptive/DME recommendations at this time. Treatment Plan: ADL training, Co-treat with physical therapy, Energy conservation instruction, Functional mobility/transfer training, IADL training, Patient/family/caregiver education, Safety training, Strengthening OT Frequency/Duration: 3x/week for 14 days Goals Upper body dressing: donning and doffing upper body dressing clothing, sitting edge of bed independently. Lower body dressing: donning and doffing lower body clothing, sitting edge of bed with standby assist. Toileting: toileting with contact guard assist. Functional transfers: ambulatory transfer with contact guard assist. Target Date: 03/30/2025 Goals were discussed with patient Education Patient educated on safety, use of call light, role of occupational therapy, patient's plan of care, ADLs, fall prevention, exercises, adaptive equipment, functional mobility and following, they wereable to verbalize understanding. Interdisciplinary Communication Following treatment, therapist communicated with nursing regarding patient's performance during therapy session, patient's level of assistance with transfers for nursing mobility, patient's dischargedisposition. Patient Disposition Upon Leaving Patient disposition upon leaving: Supine in bed, All needs met and within reach, Call light/pull cord in reach, Bed alarm applied, Head of bed >30 degrees, Nursing aware/notified, Side rails up, Yellow non slip socks donned If this patient discharges prior to next therapy session, this note serves as the patient's discharge summary. Electronically signed by GEE Lux/Robert - 03/16/2025 - 1:14 PM EDT OT Evaluation Completed * Rosie Bradford PA-C - 03/16/2025 10:00 AM EDT [facility] NEUROSURGERY PROGRESS NOTE Subjective Patient reports continued headache. Physical Exam Blood pressure (!) 137/91, pulse 102, temperature 97.7 ??F (36.5 ??C), temperature source Axillary,resp. rate 18, height 1.575 m (5' 2 ), weight 55 kg (121 lb 3.2 oz), SpO2 96%. AAOx3 NAD, lying in bed PERRL Able to move bilateral upper and lower extremities. 5/5 bilateral emergency department manager strength. Labs Results for orders placed or performed during the hospital encounter of 03/14/25 (from the past 24 hours) Glucose, Nova Meter Status: Abnormal Collection Time: 03/15/25 8:00 PM Result Value Ref Range POC-GLUCOSE 329 (H) 70 - 110 mg/dL Pharmacy Informaticist [phone] Glucose, Nova Meter Status: Abnormal Collection Time: 03/16/25 5:47 AM Result Value Ref Range POC-GLUCOSE 216 (H) 70 - 110 mg/dL Pharmacy Informaticist [id number] MRI BRAIN STEALTH W WO CONTRAST Narrative: MRI OF THE BRAIN WITH AND WITHOUT CONTRAST HISTORY: Acute headache. COMPARISON: March 2014. PROCEDURE: Multiplanar MR imaging of the brain was performed in multiple MR sequences, precontrast and postcontrast administration. A Stealth protocol was utilized. FINDINGS: Limited images the proximal cord are unremarkable. The ventricles are enlarged. There is diffuse atrophy. There is moderate periventricular and deep white matter change likely related to small vessel disease. There is no extra-axial fluid or midline shift. There is no evidence of acute hemorrhage. Flow-voids are appropriate. Diffusion-weighted images demonstrate no evidence of acute CVA. Limited images of the paranasal sinuses are unremarkable. Postcontrast images demonstrate no abnormal enhancement. 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 There is encephalomalacia and a craniotomy defect in the left frontal lobe consistent with remote lesion resection. Impression: Atrophy and periventricular white matter change without acute process. Images reviewed, interpreted, and dictated by America Galeano MD US CAROTID BLOOD FLOW BILATERAL Vascular Carotid Procedure Demographics Patient Name RENITA BEATTY Age 60 Patient Number [id number] Gender Female Race Unknown Ethnicity Corporate ID [id number] Height 62 Date of 1965 Weight 121 Accession Number [id number] BSA 1.54 m^2 Room Number [id number] BMI 22.13 kg/m^2 Referring IVIS SEQUEIRA MD Interpreting KRIS GAN MD Physician Physician Burner Shaft Dinora Barrera, RVS Procedure Type of Study: Cerebral: Carotid, US CAROTID BLOOD FLOW BILATERAL. Impressions Summary ######################################### INDICATION: I65.23 Occlusion and stenosis of bilateral carotid arteries. . RIGHT: < 50% (non flow restricting) stenosis of the internal carotid artery. Normal antegrade vertebral flow. No evidence of subclavian steal. Area of interest noted in the right thyroid measuring 1.52cm x 1.60cm, flow noted within. LEFT: < 50% (non flow restricting) stenosis of the internal carotid artery. Normal antegrade vertebral flow. No evidence of subclavian steal. ######################################### Blood Pressure:Right arm 146/92 mmHg.Left arm 138/95 mmHg. Patient Status:Inpatient . Study Location:Portable. Technical Quality:Adequate visualization. Velocities are measured in cm/s ; Diameters are measured in mm Carotid Right Measurements + +------+-----+-----+---------+ + !Location !PSV !EDV !Angle!%Stenosis!Tortuosity! + +------+-----+-----+---------+ + !Prox CCA !51.71 !11.09! ! ! ! + +------+-----+-----+---------+ + !Mid CCA !73.47 !13.63! ! ! ! + +------+-----+-----+---------+ + !Dist CCA !58.24 !14.36! ! ! ! + +------+-----+-----+---------+ + !Prox ICA !87.44 !25.29! ! ! ! + +------+-----+-----+---------+ + !Dist ICA !79.67 !24.25! ! ! ! + +------+-----+-----+---------+ + !Prox ECA !81.89 ! ! ! ! ! + +------+-----+-----+---------+ + !Mid Vertebral !58.26 ! ! ! ! ! + +------+-----+-----+---------+ + !Mid Subclavian !118.42! ! ! ! ! + +------+-----+-----+---------+ + - There is antegrade vertebral flow noted on the right side. - Additional Measurements:ICAPSV/CCAPSV 1.5. Carotid Left Measurements + +------+-----+-----+---------+ + !Location !PSV !EDV !Angle!%Stenosis!Tortuosity! + +------+-----+-----+---------+ + !Prox CCA !67.8 !15.16! ! ! ! + +------+-----+-----+---------+ + !Mid CCA !76.08 !13.51! ! ! ! + +------+-----+-----+---------+ + !Dist CCA !52.88 !11.9 ! ! ! ! + +------+-----+-----+---------+ + !Prox ICA !55.06 !12.99! ! ! ! + +------+-----+-----+---------+ + !Dist ICA !89.4 !28.48! ! ! ! + +------+-----+-----+---------+ + !Prox ECA !346.92! ! ! ! ! + +------+-----+-----+---------+ + !Mid Vertebral !56.61 ! ! ! ! ! + +------+-----+-----+---------+ + !Mid Subclavian !98.84 ! ! ! ! ! + +------+-----+-----+---------+ + - There is antegrade vertebral flow noted on the left side. - Additional Measurements:ICAPSV/CCAPSV 1.04. Findings Right Findings Mild heterogenous hyperechoic smooth plaque in the entire CCA . Mild heterogenous hyperechoic smooth plaque in the ECA . Mild heterogenous hyperechoic irregular plaque in the proximal ICA . Left Findings Mild heterogenous hyperechoic smooth plaque in the subclavian artery . Mild heterogenous hyperechoic irregular plaque in the entire CCA . Moderate heterogenous hyperechoic irregular plaque in the ECA . Mild heterogenous hyperechoic irregular plaque in the proximal ICA . Signature Assessment Patient is a 60-year-old with history of meningioma resection, CVA with residual right-sided defects, tardive dyskinesia and epilepsy presenting to the hospital on 03/14/2025 for new onset headaches. On review of imaging with Dr. Ann, MRI brain is without tumor recurrence hydrocephalus or other surgical processes. Noted postsurgical changes to suboccipital and frontoparietal craniotomies. Recommend neurology follows for headache management. Otherwise, no neurosurgical follow up needed. Patient verbalizes agreement and is happy with the plan. Plan Neurosurgery to sign off. Cosigned by Srinivasa Ann MD at 03/17/2025 8:51 PM EDT * Ivis Sequeira MD - 03/16/2025 9:00 AM EDT [facility] MEDICINE PROGRESS NOTE: Patient: Citlali Maravilla Date: 03/16/2025 ASSESSMENT and PLAN: Citlali Maravilla is a 60 y.o. female with a history of meningioma status postresection from 2017, history of CVA, seizure, tardive dyskinesia who presented on 03/14/2025 with headache and slurred speech and also found to carotid stenosis so transferred to us for neurosurgeon and the mold capper Consult DIAGNOSIS: Ruled out Internal carotid artery stenosis Headache/recurrent falls-chronic History of CVA with residual deficits Tardive dyskinesia History of meningioma Type 2 diabetes Hypertension Hyperlipidemia GERD Mood disorder PLAN: Carotid Doppler and MRI report unremarkable Cardiology signed off Insulin sliding scale Continue Lipitor aspirin Continue Keppra at home dosage BP control with nifedipine PT/OT Discussed with watch case polisher try to get the patient to fpc DVT Prophylaxis: SCD CODE STATUS : full Previous Living Condition: home Expected Disposition: alf or rehab Expected Discharge Date: Subjective Patient seen and examined at bedside this AM. Patient awake alert talking headache much improving Mild agitation sometime and that we are looking for fpc for her continue pain control Objective Vitals: Temp: [97.7 ??F (36.5 ??C)-97.9 ??F (36.6 ??C)] 97.7 ??F (36.5 ??C) Pulse: [58-102] 102 Resp: [18] 18 BP: (88-182)/(61-162) 137/91 Intake/Output: No intake or output data in the 24 hours ending 03/16/25 1326 Physical exam: General: Looks comfortable and mild distress HEENT: Head atraumatic, normal cephalic. Neck: Supple. No JVD noted CVS: S1, S2, no S3 or S4. Regular rate and rhythm no murmur. Lungs: Bilateral air entry. Normal chest expansion. Clear to auscultation bilaterally. Abdomen: Soft. Nontender. Positive bowel sounds. CASING FLUSHER: Awake alert talking but mild no gross neurological focal deficits. Musculoskeletal: Range of motion is normal. No pedal edema. Skin: Warm and dry on exposed surface. Psychiatry: Mild agitation Medications: Scheduled Meds: aspirin 325 mg oral Daily 325 mg at 03/16/25 0939 atorvastatin 80 mg oral Every Night 80 mg at 03/15/252107 [Held by provider] dapagliflozin propanediol 10 mg oral Daily desvenlafaxine 100 mg oral Daily 100 mg at 03/16/25937 gabapentin 800 mg oral TID 800 mg at 03/16/25937 insulin 70/30 NPH-regular human 5 Units subcutaneous BID AC 5 Units at 03/16/2542 insulin regular 0-12 Units subcutaneous Q6H ZANDER 4 Units at 03/16/2543 levETIRAcetam 500 mg oral BID 500 mg at 03/16/25937 lisinopriL 10 mg oral Daily 10 mg at 03/16/25937 NIFEdipine 30 mg oral Daily 30 mg at 03/16/25937 pantoprazole 40 mg oral Daily 40 mg at 03/16/25937 traZODone 150 mg oral Every Night 150 mg at 03/15/252107 valbenazine 80 mg oral Daily Continuous Infusions: Current Facility-Administered Medications Medication Dose Route Frequency Provider Last Rate Last Admin acetaminophen (TYLENOL) tablet 1,000 mg 1,000 mg oral Q6H PRN Rupert Meek PA-C aspirin EC tablet 325 mg 325 mg oral Daily Rupert Meek PA-C 325 mg at 03/16/25 0939 atorvastatin (LIPITOR) tablet 80 mg 80 mg oral Every Night Rupert Meek PA-C 80 mg at 03/15/252107 wuwgufevdc-ypbdspmmbldwg-xzstgwbb (FIORICET,ESGIC) tablet 1 tablet oral Q4H PRN Ivis Sequeira MD 1 tablet at 03/16/25 0106 [Held by provider] dapagliflozin propanediol (FARXIGA) tablet 10 mg 10 mg oral Daily Rupert Meek PA-C desvenlafaxine (PRISTIQ) ER 24 hr tablet 100 mg 100 mg oral Daily Rupert Meek PA-C 100 mg at 03/16/25 0938 dextrose 50% (D50W) injection 25 g 25 g intravenous Q15 Min PRN Rupert Meek PA-C gabapentin (NEURONTIN) capsule 800 mg 800 mg oral TID Rupert Meek PA-C 800 mg at 03/16/25 0938 glucagon injection 1 mg 1 mg intraMUSCULAR Q15 Min PRN Rupert Meek PA-C glucose chew tab 16 g 16 g oral Q15 Min PRN Rupert Meek PA-C hydrALAZINE (APRESOLINE) injection 10 mg 10 mg intravenous Q6H PRN Rupert Meek PA-C 10 mg at 03/14/25 0540 HYDROcodone-acetaminophen (NORCO) 5-325 mg per tablet 1 tablet 1 tablet oral Q6H PRN Rupert Meek PA-C 1 tablet at 03/16/25 0306 hydrOXYzine (ATARAX) tablet 25 mg 25 mg oral Q8H PRN Rupert Meek PA-C 25 mg at 03/14/25 2029 insulin 70/30 NPH-regular human (HumuLIN 70/30, NovoLIN 70/30) injection 5 Units 5 Units subcutaneous BID Ivis Sequeira MD 5 Units at 03/16/25 0642 insulin regular (HUMULIN R,NOVOLIN R) injection 0-12 Units subcutaneous Q6H [facility] Rupert Meek PA-C 4 Units at 03/16/25 0643 levETIRAcetam (KEPPRA) tablet 500 mg 500 mg oral BID Rupert Meek PA-C 500 mg at 03/16/25 0938 lisinopriL (ZESTRIL) tablet 10 mg 10 mg oral Daily Nona Garza PA-C 10 mg at 03/16/25 0938 magnesium sulfate IVPB 2 g in sterile water 50 mL (premix) 2 g intravenous Daily PRN Rupert Meek PA-C magnesium sulfate IVPB 2 g in sterile water 50 mL (premix) 2 g intravenous BID PRN Rupert Meek PA-C melatonin tablet 3 mg 3 mg oral Every Night PRN Rupert Meek PA-C 3 mg at 03/16/25 0106 morphine injection 2 mg 2 mg intravenous Q6H PRN Rupert Meek PA-C naloxone (NARCAN) injection 0.2 mg 0.2 mg intravenous Q2 Min PRN Rupert Meek PA-C NIFEdipine (PROCARDIA-XL) 24 hr tablet 30 mg 30 mg oral Daily Rupert Meek PA-C 30 mg at 03/16/25 0938 ondansetron (ZOFRAN-ODT) disintegrating tablet 4 mg 4 mg oral Q8H PRN Rupert Meek PA-C Or ondansetron (ZOFRAN) injection 4 mg 4 mg intravenous Q8H PRN Rupert Meek PA-C pantoprazole (PROTONIX) EC tablet 40 mg 40 mg oral Daily Rupert Meek PA-C 40 mg at 03/16/25 0938 potassium chloride (KLOR-CON) ER tablet 40 mEq 40 mEq oral 4x Daily PRN Rupert Meek PA-C potassium chloride IVPB 10 mEq in 100 mL sterile water (premix) 10 mEq intravenous Q1H PRN Rupert Meek PA-C sodium chloride flush 10 mL 10 mL intravenous PRN Rupert Meek PA-C tiZANidine (ZANAFLEX) tablet 4 mg 4 mg oral TID PRN Rupert Meek PA-C 4 mg at 03/14/25 2030 traZODone (DESYREL) tablet 150 mg 150 mg oral Every Night Rupert Meek PA-C 150 mg at 03/15/25 2108 valbenazine cap 80 mg PATIENT'S OWN MEDICATION SUPPLY 80 mg oral Daily Rupert Meek PA-C PRN Meds: @MEDSPRN@ Labs: Results for orders placed or performed during the hospital encounter of 03/14/25 (from the past 24 hours) Glucose, Nova Meter Status: Abnormal Collection Time: 03/15/25 8:00 PM Result Value Ref Range POC-GLUCOSE 329 (H) 70 - 110 mg/dL Pharmacy Informaticist [id number] Glucose, Nova Meter Status: Abnormal Collection Time: 03/16/25 5:47 AM Result Value Ref Range POC-GLUCOSE 216 (H) 70 - 110 mg/dL Pharmacy Informaticist [id number] Radiology: Radiology Results (last 3 days) Procedure Component Value Units Date/Time MRI BRAIN STEALTH W WO CONTRAST [[id number]] Collected: 03/14/25 1604 Order Status: Completed Updated: 03/14/25 1615 Narrative: MRI OF THE BRAIN WITH AND WITHOUT CONTRAST HISTORY: Acute headache. COMPARISON: March 2014. PROCEDURE: Multiplanar MR imaging of the brain was performed in multiple MR sequences, precontrast and postcontrast administration. A Stealth protocol was utilized. FINDINGS: Limited images the proximal cord are unremarkable. The ventricles are enlarged. There is diffuse atrophy. There is moderate periventricular and deep white matter change likely related to small vessel disease. There is no extra-axial fluid or midline shift. There is no evidence of acute hemorrhage. Flow-voids are appropriate. Diffusion-weighted images demonstrate no evidence of acute CVA. Limited images of the paranasal sinuses are unremarkable. Postcontrast images demonstrate no abnormal enhancement. 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 There is encephalomalacia and a craniotomy defect in the left frontal lobe consistent with remote lesion resection. Impression: Atrophy and periventricular white matter change without acute process. Images reviewed, interpreted, and dictated by America Galeano MD US CAROTID BLOOD FLOW BILATERAL [[id number]] Collected: 03/14/25 1122 Order Status: Completed Updated: 03/14/25 1319 Narrative: Vascular Carotid Procedure Demographics Patient Name RENITA BEATTY Age 60 Patient Number [id number] Gender Female Race Unknown Ethnicity Corporate ID [id number] Height 62 Date of 1965 Weight 121 Accession Number [id number] BSA 1.54 m^2 Room Number 308 BMI 22.13 kg/m^2 Referring IVIS SEQUEIRA MD Interpreting KRIS GAN MD Physician Physician Burner Shaft LORRAINE Davies Procedure Type of Study: Cerebral: Carotid, US CAROTID BLOOD FLOW BILATERAL. Impressions Summary ######################################### INDICATION: I65.23 Occlusion and stenosis of bilateral carotid arteries. . RIGHT: < 50% (non flow restricting) stenosis of the internal carotid artery. Normal antegrade vertebral flow. No evidence of subclavian steal. Area of interest noted in the right thyroid measuring 1.52cm x 1.60cm, flow noted within. LEFT: < 50% (non flow restricting) stenosis of the internal carotid artery. Normal antegrade vertebral flow. No evidence of subclavian steal. ######################################### Blood Pressure:Right arm 146/92 mmHg.Left arm 138/95 mmHg. Patient Status:Inpatient . Study Location:Portable. Technical Quality:Adequate visualization. Velocities are measured in cm/s ; Diameters are measured in mm Carotid Right Measurements + +------+-----+-----+---------+ + !Location !PSV !EDV !Angle!%Stenosis!Tortuosity! + +------+-----+-----+---------+ + !Prox CCA !51.71 !11.09! ! ! ! + +------+-----+-----+---------+ + !Mid CCA !73.47 !13.63! ! ! ! + +------+-----+-----+---------+ + !Dist CCA !58.24 !14.36! ! ! ! + +------+-----+-----+---------+ + !Prox ICA !87.44 !25.29! ! ! ! + +------+-----+-----+---------+ + !Dist ICA !79.67 !24.25! ! ! ! + +------+-----+-----+---------+ + !Prox ECA !81.89 ! ! ! ! ! + +------+-----+-----+---------+ + !Mid Vertebral !58.26 ! ! ! ! ! + +------+-----+-----+---------+ + !Mid Subclavian !118.42! ! ! ! ! + +------+-----+-----+---------+ + - There is antegrade vertebral flow noted on the right side. - Additional Measurements:ICAPSV/CCAPSV 1.5. Carotid Left Measurements + +------+-----+-----+---------+ + !Location !PSV !EDV !Angle!%Stenosis!Tortuosity! + +------+-----+-----+---------+ + !Prox CCA !67.8 !15.16! ! ! ! + +------+-----+-----+---------+ + !Mid CCA !76.08 !13.51! ! ! ! + +------+-----+-----+---------+ + !Dist CCA !52.88 !11.9 ! ! ! ! + +------+-----+-----+---------+ + !Prox ICA !55.06 !12.99! ! ! ! + +------+-----+-----+---------+ + !Dist ICA !89.4 !28.48! ! ! ! + +------+-----+-----+---------+ + !Prox ECA !346.92! ! ! ! ! + +------+-----+-----+---------+ + !Mid Vertebral !56.61 ! ! ! ! ! + +------+-----+-----+---------+ + !Mid Subclavian !98.84 ! ! ! ! ! + +------+-----+-----+---------+ + - There is antegrade vertebral flow noted on the left side. - Additional Measurements:ICAPSV/CCAPSV 1.04. Findings Right Findings Mild heterogenous hyperechoic smooth plaque in the entire CCA . Mild heterogenous hyperechoic smooth plaque in the ECA . Mild heterogenous hyperechoic irregular plaque in the proximal ICA . Left Findings Mild heterogenous hyperechoic smooth plaque in the subclavian artery . Mild heterogenous hyperechoic irregular plaque in the entire CCA . Moderate heterogenous hyperechoic irregular plaque in the ECA . Mild heterogenous hyperechoic irregular plaque in the proximal ICA . Signature Signed: 03/16/2025 * Alex Nava RN - 03/15/2025 12:27 PM EDT 03/15/25 1226 Home Environment Type of Residence Private residence Living Arrangements Friends Support Systems Friends/neighbors Accessibilty Issues Other (Comment) (3 steps to enter.) Patient returning to prior living situation? Unknown Adherence Patient has moderate rate of compliance with treatment. Motivation Patient has moderate desire for learning/change. Affect Behavior Appropriate;Agitated Prior/Regular Transportation Friend Needs Assistance with Transportation No ADL Assessment Current Sensory Deficits None Patient's Vision Adequate to Safely Complete Daily Activities 1 Patient's Judgement Adequate to Safely Complete Daily Activities 1 Dressing Needs assistance Current Home Care Services None Assistive Devices Walker;Shower chair Transition Needs Home or Post Acute Services Post acute facilities (Rehab/SNF/etc) Type of Post Acute Facility Services prison Does the patient have the ability to fill and receive their discharge medications? Yes Discharge Plan Discussed The discharge plan was discussed with patient. Discharge Plan Outcome Patient/family front desk representative agrees with the discharge plan Discharge Barriers None Type of Assistive Devices Needed for Discharge None Patient Discharge Goal [facility] Mandated Reporting Not applicable Discharge Plan Progress Note Lives with 2 friends in a 1 story house with 3 steps to enter. Patient requires assistance with ADLs that are exceeding what is available from the friends she lives with. Patient has a 4ww and SC. She uses no supportive services at home or in the community. Patient wants to go to [facility] [place] [facility] [place]. Patient's Diabetes Territory Manager from the brain injury program , July [phone], has been working on this. Currently patient meets criteria for short term skilled rehab. Referred to all SNFs in [facility] and left voice mail for admissions at [facility] stating they were preference. Spoke with MONI Mcdowell and updated of these details. She will follow. IMM delivered to patient. Patient signed IMM. Signed copy placed in chart. MD and RN notified of these details. Case Management will follow. Alex Nava RN * Pooja Falcon, PT - 03/15/2025 11:48 AM EDT Images from the original note were not included. Inpatient Physical Therapy Attempt to Treat Patient Name: Citlali Maravilla Birthday: 1965 Date of Attempt: 03/15/2025 Pt supine in bed upon entry, declining therapy stating she was in a foul mood. Pt educated on benefits of mobility and PT but continued to decline. PT/OT asked if there was anything therapist could do prior to exit and pt replied leave. Pt left with all needs within reach. Time spent in room 2804-2007. 1 zero charge dropped. Electronically signed by Pooja Falcon, PT - 03/15/2025 - 11:48 AM EDT * Gloria Romo OTR/L - 03/15/2025 9:57 AM EDT Images from the original note were not included. Inpatient Occupational Therapy Attempt to Treat Patient Name: Citlali Maravilla Birthday: 1965 Date of Attempt: 03/15/2025 OT received orders for evaluation. Approved by SARAHY Jacob. OT heard pt yelling for help while passing room. Pt upset because she cannot use phone to call friend. OT assisted pt calling friend, asking herto come pick her up. OT spoke with RN who stated pt does not have DC orders at this time. Pt very confused and agitated, requesting OT/PT to leave. OT/PT educated pt on therapy role in hospital, in which she adamantly declined. Pt stated, What you can do is leave me alone and get out of my room . 24 minutes spent for nursing collaboration, thorough chart and systems review, and clinical reasoning in direct relation to patient care. 2 zero charges dropped to account for therapist's time. Electronically signed by Gloria Romo OTR/L - 03/15/2025 - 11:51 AM EDT * Ivis Sequeira MD - 03/15/2025 9:40 AM EDT [facility] MEDICINE PROGRESS NOTE: Patient: Citlali Maravilla Date: 03/15/2025 ASSESSMENT and PLAN: Citlali Maravilla is a 60 y.o. female with a history of meningioma status postresection from 2017, history of CVA, seizure, tardive dyskinesia who presented on 03/14/2025 with headache and slurred speech and also found to carotid stenosis so transferred to us for neurosurgeon and the mold capper Consult DIAGNOSIS: Possible Internal carotid artery stenosis POA- ruled out Headache/recurrent falls-chronic History of CVA with residual deficits Tardive dyskinesia History of meningioma Type 2 diabetes Hypertension Hyperlipidemia GERD Mood disorder PLAN: Carotid Doppler and MRI report reviewed Cardiology signed off Insulin sliding scale Continue Lipitor aspirin Continue Keppra at home dosage BP control with nifedipine PT/OT Discussed with watch case polisher and they will look at discharge plan either home with home health or [facility] patient told us she is in the process to go to [facility] DVT Prophylaxis: SCD CODE STATUS : full Previous Living Condition: home Expected Disposition: alf or rehab Expected Discharge Date: TB Subjective Patient seen and examined at bedside this AM. Patient admitted due to headache and possible carotid stenosis But since admission test come back unremarkable cardiology signed off Today 1 saw the patient she looks fine she is alert awake having trouble speaking but the chronic due to stroke and she told me she lives at home and have her 2 friends but no other family she told me somebody to try help her go to [facility] now but they also okay if needed go to home with home health I will discuss with watch case polisher Objective Vitals: Temp: [97 ??F (36.1 ??C)-97.8 ??F (36.6 ??C)] 97.3 ??F (36.3 ??C) Pulse: [57-92] 76 Resp: [18-20] 18 BP: (86-127)/(60-82) 110/73 Intake/Output: Intake/Output Summary (Last 24 hours) at 03/15/2025 1643 Last data filed at 03/15/2025 1100 Gross per 24 hour Intake 120 ml Output 301 ml Net -181 ml Physical exam: General: Looks comfortable and mild distress HEENT: Head atraumatic, normal cephalic. Neck: Supple. No JVD noted CVS: S1, S2, no S3 or S4. Regular rate and rhythm no murmur. Lungs: Bilateral air entry. Normal chest expansion. Clear to auscultation bilaterally. Abdomen: Soft. Nontender. Positive bowel sounds. CASING FLUSHER: Awake alert talking but mild no gross neurological focal deficits. Musculoskeletal: Range of motion is normal. No pedal edema. Skin: Warm and dry on exposed surface. Psychiatry: Mild agitation Medications: Scheduled Meds: aspirin 325 mg oral Daily 325 mg at 03/15/25 0852 atorvastatin 80 mg oral Every Night 80 mg at 03/14/25 2147 [Held by provider] dapagliflozin propanediol 10 mg oral Daily desvenlafaxine 100 mg oral Daily 100 mg at 03/15/25 0852 gabapentin 800 mg oral TID 800 mg at 03/15/25 1555 insulin 70/30 NPH-regular human 5 Units subcutaneous BID AC 5 Units at 03/15/25 0717 insulin regular 0-12 Units subcutaneous Q6H ZANDER 6 Units at 03/15/25 1200 levETIRAcetam 500 mg oral BID 500 mg at 03/15/25 0845 lisinopriL 10 mg oral Daily 10 mg at 03/15/25 0845 NIFEdipine 30 mg oral Daily 30 mg at 03/15/25 0845 pantoprazole 40 mg oral Daily 40 mg at 03/15/25 0845 traZODone 150 mg oral Every Night 150 mg at 03/14/25 2147 valbenazine 80 mg oral Daily Continuous Infusions: Current Facility-Administered Medications Medication Dose Route Frequency Provider Last Rate Last Admin acetaminophen (TYLENOL) tablet 1,000 mg 1,000 mg oral Q6H PRN Rupert Meek PA-C aspirin EC tablet 325 mg 325 mg oral Daily Rupert Meek PA-C 325 mg at 03/15/25 0852 atorvastatin (LIPITOR) tablet 80 mg 80 mg oral Every Night Rupert Meek PA-C 80 mg at 03/14/25 2147 kaskeekpdr-hrmqaqjrggafo-xyxzhfxs (FIORICET,ESGIC) tablet 1 tablet oral Q4H PRN Ivis Sequeira MD 1 tablet at 03/14/252029 [Held by provider] dapagliflozin propanediol (FARXIGA) tablet 10 mg 10 mg oral Daily Rupert Meek PA-C desvenlafaxine (PRISTIQ) ER 24 hr tablet 100 mg 100 mg oral Daily Rupert Meek PA-C 100 mg at 03/15/25 0852 dextrose 50% (D50W) injection 25 g 25 g intravenous Q15 Min PRN Rupert Meek PA-C gabapentin (NEURONTIN) capsule 800 mg 800 mg oral TID Rupert Meek PA-C 800 mg at 03/15/25 1555 glucagon injection 1 mg 1 mg intraMUSCULAR Q15 Min PRN Rupert Meek PA-C glucose chew tab 16 g 16 g oral Q15 Min PRN Rupert Meek PA-C hydrALAZINE (APRESOLINE) injection 10 mg 10 mg intravenous Q6H PRN Rupert Meek PA-C 10 mg at 03/14/25 0540 HYDROcodone-acetaminophen (NORCO) 5-325 mg per tablet 1 tablet 1 tablet oral Q6H PRN Rupert Meek PA-C 1 tablet at 03/15/25 0946 hydrOXYzine (ATARAX) tablet 25 mg 25 mg oral Q8H PRN Rupert Meek PA-C 25 mg at 03/14/259 insulin 70/30 NPH-regular human (HumuLIN 70/30, NovoLIN 70/30) injection 5 Units 5 Units subcutaneous BID Ivis Sequeira MD 5 Units at 03/15/25 0717 insulin regular (HUMULIN R,NOVOLIN R) injection 0-12 Units subcutaneous Q6H [facility] Rupert Meek PA-C 6 Units at 03/15/25 1200 levETIRAcetam (KEPPRA) tablet 500 mg 500 mg oral BID Rupert Meek PA-C 500 mg at 03/15/25 0845 lisinopriL (ZESTRIL) tablet 10 mg 10 mg oral Daily Nona Garza PA-C 10 mg at 03/15/25 0845 magnesium sulfate IVPB 2 g in sterile water 50 mL (premix) 2 g intravenous Daily PRN Rupert Meek PA-C magnesium sulfate IVPB 2 g in sterile water 50 mL (premix) 2 g intravenous BID PRN Rupert Meek PA-C melatonin tablet 3 mg 3 mg oral Every Night PRN Rupert Meek PA-C 3 mg at 03/14/25 2030 morphine injection 2 mg 2 mg intravenous Q6H PRN Rupert Meek PA-C naloxone (NARCAN) injection 0.2 mg 0.2 mg intravenous Q2 Min PRN Rupert Meek PA-C NIFEdipine (PROCARDIA-XL) 24 hr tablet 30 mg 30 mg oral Daily Rupert Meek PA-C 30 mg at 03/15/25 0845 ondansetron (ZOFRAN-ODT) disintegrating tablet 4 mg 4 mg oral Q8H PRN Rupert Meek PA-C Or ondansetron (ZOFRAN) injection 4 mg 4 mg intravenous Q8H PRN Rpuert Meek PA-C pantoprazole (PROTONIX) EC tablet 40 mg 40 mg oral Daily Rupert Meek PA-C 40 mg at 03/15/25 0845 potassium chloride (KLOR-CON) ER tablet 40 mEq 40 mEq oral 4x Daily PRN REI MaC potassium chloride IVPB 10 mEq in 100 mL sterile water (premix) 10 mEq intravenous Q1H PRN Rupert Meek PA-C sodium chloride flush 10 mL 10 mL intravenous PRN Rupert Meek PA-C tiZANidine (ZANAFLEX) tablet 4 mg 4 mg oral TID PRN Rupert Meek PA-C 4 mg at 03/14/25 2030 traZODone (DESYREL) tablet 150 mg 150 mg oral Every Night Rupert Meek PA-C 150 mg at 03/14/25 2147 valbenazine cap 80 mg PATIENT'S OWN MEDICATION SUPPLY 80 mg oral Daily Rupert Meek PA-C PRN Meds: @MEDSPRN@ Labs: Results for orders placed or performed during the hospital encounter of 03/14/25 (from the past 24 hours) Glucose, Nova Meter Status: Abnormal Collection Time: 03/14/25 4:54 PM Result Value Ref Range POC-GLUCOSE 265 (H) 70 - 110 mg/dL Pharmacy Informaticist [id number] Glucose, Nova Meter Status: Abnormal Collection Time: 03/14/25 7:16 PM Result Value Ref Range POC-GLUCOSE 188 (H) 70 - 110 mg/dL Pharmacy Informaticist [id number] Glucose, Nova Meter Status: Abnormal Collection Time: 03/15/25 5:35 AM Result Value Ref Range POC-GLUCOSE 193 (H) 70 - 110 mg/dL Pharmacy Informaticist [id number] Lipid panel Status: None Collection Time: 03/15/25 6:13 AM Result Value Ref Range Triglycerides 100 <=149 mg/dL Cholesterol 111 100 - 199 mg/dL HDL Cholesterol 43 See Comment mg/dL LDL Cholesterol, Calculated 48 0 - 100 mg/dL LDl/HDL Ratio 1 0 - 4 Cholesterol/HDL ratio 2.6 0.0 - 5.0 mg/dL VLDL Cholesterol 20 5 - 40 mg/dL Basic Metabolic Panel Status: Abnormal Collection Time: 03/15/25 6:13 AM Result Value Ref Range Sodium 139 136 - 145 meq/L Potassium 3.7 3.4 - 5.1 meq/L CO2 20 (L) 22 - 29 meq/L Chloride 106 98 - 112 meq/L Glucose 200 (H) 82 - 115 mg/dL BUN 27.9 (H) 9.8 - 20.1 mg/dL Creatinine 0.99 0.57 - 1.11 mg/dL BUN/Creatinine 28 (H) 8 - 20 Calcium 9.8 8.4 - 10.2 mg/dL Anion Gap 17 (H) 4 - 12 eGFR (mL/min/1.73m2) 65 >=60 mL/min/1.73m2 Osmolality Calc 288.6 mOsm/kg Magnesium Status: Normal Collection Time: 03/15/25 6:13 AM Result Value Ref Range Magnesium 1.6 1.6 - 2.6 mg/dL Glucose, Nova Meter Status: Abnormal Collection Time: 03/15/25 11:29 AM Result Value Ref Range POC-GLUCOSE 249 (H) 70 - 110 mg/dL Pharmacy Informaticist [id number] Radiology: Radiology Results (last 3 days) Procedure Component Value Units Date/Time MRI BRAIN STEALTH W WO CONTRAST [[id number]] Collected: 03/14/25 1604 Order Status: Completed Updated: 03/14/25 1615 Narrative: MRI OF THE BRAIN WITH AND WITHOUT CONTRAST HISTORY: Acute headache. COMPARISON: March 2014. PROCEDURE: Multiplanar MR imaging of the brain was performed in multiple MR sequences, precontrast and postcontrast administration. A Stealth protocol was utilized. FINDINGS: Limited images the proximal cord are unremarkable. The ventricles are enlarged. There is diffuse atrophy. There is moderate periventricular and deep white matter change likely related to small vessel disease. There is no extra-axial fluid or midline shift. There is no evidence of acute hemorrhage. Flow-voids are appropriate. Diffusion-weighted images demonstrate no evidence of acute CVA. Limited images of the paranasal sinuses are unremarkable. Postcontrast images demonstrate no abnormal enhancement. 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 There is encephalomalacia and a craniotomy defect in the left frontal lobe consistent with remote lesion resection. Impression: Atrophy and periventricular white matter change without acute process. Images reviewed, interpreted, and dictated by America Galeano MD CAROTID BLOOD FLOW BILATERAL [[id number]] Collected: 03/14/25 1122 Order Status: Completed Updated: 03/14/25 1319 Narrative: Vascular Carotid Procedure Demographics Patient Name RENITA BEATTY Age 60 Patient Number [id number] Gender Female Race Unknown Ethnicity Corporate ID [id number] Height 62 Date of 1965 Weight 121 Accession Number [id number] BSA 1.54 m^2 Room Number 308 BMI 22.13 kg/m^2 Referring IVIS SEQUEIRA MD Interpreting KRIS GAN MD Physician Physician Burner Shaft LORRAINE Davies Procedure Type of Study: Cerebral: Carotid, US CAROTID BLOOD FLOW BILATERAL. Impressions Summary ######################################### INDICATION: I65.23 Occlusion and stenosis of bilateral carotid arteries. . RIGHT: < 50% (non flow restricting) stenosis of the internal carotid artery. Normal antegrade vertebral flow. No evidence of subclavian steal. Area of interest noted in the right thyroid measuring 1.52cm x 1.60cm, flow noted within. LEFT: < 50% (non flow restricting) stenosis of the internal carotid artery. Normal antegrade vertebral flow. No evidence of subclavian steal. ######################################### Blood Pressure:Right arm 146/92 mmHg.Left arm 138/95 mmHg. Patient Status:Inpatient . Study Location:Portable. Technical Quality:Adequate visualization. Velocities are measured in cm/s ; Diameters are measured in mm Carotid Right Measurements + +------+-----+-----+---------+ + !Location !PSV !EDV !Angle!%Stenosis!Tortuosity! + +------+-----+-----+---------+ + !Prox CCA !51.71 !11.09! ! ! ! + +------+-----+-----+---------+ + !Mid CCA !73.47 !13.63! ! ! ! + +------+-----+-----+---------+ + !Dist CCA !58.24 !14.36! ! ! ! + +------+-----+-----+---------+ + !Prox ICA !87.44 !25.29! ! ! ! + +------+-----+-----+---------+ + !Dist ICA !79.67 !24.25! ! ! ! + +------+-----+-----+---------+ + !Prox ECA !81.89 ! ! ! ! ! + +------+-----+-----+---------+ + !Mid Vertebral !58.26 ! ! ! ! ! + +------+-----+-----+---------+ + !Mid Subclavian !118.42! ! ! ! ! + +------+-----+-----+---------+ + - There is antegrade vertebral flow noted on the right side. - Additional Measurements:ICAPSV/CCAPSV 1.5. Carotid Left Measurements + +------+-----+-----+---------+ + !Location !PSV !EDV !Angle!%Stenosis!Tortuosity! + +------+-----+-----+---------+ + !Prox CCA !67.8 !15.16! ! ! ! + +------+-----+-----+---------+ + !Mid CCA !76.08 !13.51! ! ! ! + +------+-----+-----+---------+ + !Dist CCA !52.88 !11.9 ! ! ! ! + +------+-----+-----+---------+ + !Prox ICA !55.06 !12.99! ! ! ! + +------+-----+-----+---------+ + !Dist ICA !89.4 !28.48! ! ! ! + +------+-----+-----+---------+ + !Prox ECA !346.92! ! ! ! ! + +------+-----+-----+---------+ + !Mid Vertebral !56.61 ! ! ! ! ! + +------+-----+-----+---------+ + !Mid Subclavian !98.84 ! ! ! ! ! + +------+-----+-----+---------+ + - There is antegrade vertebral flow noted on the left side. - Additional Measurements:ICAPSV/CCAPSV 1.04. Findings Right Findings Mild heterogenous hyperechoic smooth plaque in the entire CCA . Mild heterogenous hyperechoic smooth plaque in the ECA . Mild heterogenous hyperechoic irregular plaque in the proximal ICA . Left Findings Mild heterogenous hyperechoic smooth plaque in the subclavian artery . Mild heterogenous hyperechoic irregular plaque in the entire CCA . Moderate heterogenous hyperechoic irregular plaque in the ECA . Mild heterogenous hyperechoic irregular plaque in the proximal ICA . Signature Signed: 03/15/2025 * James Núñez PT - 03/14/2025 3:11 PM EDT Images from the original note were not included. Inpatient Physical Therapy Initial Evaluation Patient Name: Citlali Maravilla Date of : 1965 Date of Evaluation: 03/14/25 In Time 1448 Out Time 1511 Session Duration 23 minutes Time spent for nursing collaboration, chart and systems review, and clinical reasoning. 15 minutes Total Time 38 minutes Pt is a 60 y.o. female admitted on 03/14/2025 with Internal carotid artery stenosis [I65.29] Carotid stenosis, right [I65.21]. No past medical history on file. No past surgical history on file. General Visit type: Initial Evaluation Approved by: Nurse Mueller Patient Disposition Upon Entry: Supine in bed, Call Light/Pull Cord in reach, All needs met and within reach, Nursing aware/notified Patient Verified By: Name and Date of Precautions Weight-Bearing Status: No Restrictions Precautions: Fall risk Isolation Precautions: Standard Lines, tubes, drains, airway: telemetry Subjective Subjective: Patient agreeable to physical therapy evaluation and treatment. Patient goal: Patient wants to go to a fpc for more comprehensive care. Pain Yes. 0-10 SCALE Pain location: headache 9/10. Pain intervention: Medication (See eMAR). Response to intervention: Not changed Cognition Overall cognitive status: Patient is awake and alert, attending to directions appropriately, demonstrating good problem solving skills, and aware of any deficits or impairments, if present. Home Living Lives with: Friend(s) Home Type: House Home Layout: One level Stairs to enter: 3 step(s) Stairs inside home: none Home Equipment: Rollator Functional Mobility PLOF: Patient reports being modified independent with all functional mobility with the use of Rollator Activities of Daily Living PLOF: Patient reports being modified independent with all ADL's with theuse of assistance from friends for dressing and bathing Patient does not anticipate returning to current living conditions, is prepared to go to fpc. Objective Vitals BP prior: 129/97 Basic Strength Assessment 4/5 MMT LE Range of Motion Assessment WFL for all extremities Sensation Sensation is intact and equal bilaterally. Functional Mobility Bed Mobility Supine to Sit: modified independent, HOB elevated Transfers Sit to Stand: contact guard assist, 1-person assist, gait belt used, rolling walker used Stand to Sit: contact guard assist, 1-person assist, gait belt used, rolling walker used Gait Gait Assistance: contact guard assist, 1-person assist Assistive Device: Gait Belt, Rolling walker Distance: 10' from bed to stretcher in [place] to go for MRI Gait speed: slow Deviation(s): increased trunk flexion Stair Management Not addressed today. Focus of treatment today on gait training. Wheelchair Mobility Not assessed, patient ambulatory. Outcome Measures [facility] Basic Mobility Inpatient Short Form How much difficulty does the patient currently have: Turning over in bed (including adjusting bedclothes, sheets, and blankets)? (1) Total/Unable (not able to do the activity or can only perform the activity using assistive devices or requires assistance from another person, including supervision or cueing for safety) Sitting down on and standing up from a chair with arms (e.g., wheelchair, bedside commode, etc.)? (1) Total/Unable (not able to do the activity or can only perform the activity using assistive devices or requires assistance from another person, including supervision or cueing for safety) Moving from lying on back to sitting on side of bed? (1) Total/Unable (not able to do the activity or can only perform the activity using assistive devices or requires assistance from another person,including supervision or cueing for safety) How much help from another person does the patient currently need: Moving to and from a bed to a chair (including a wheelchair)? (3) A little (Minimal/Contact guard/Supervision/Setup) Need to walk in hospital room? (3) A little (Minimal/Contact guard/Supervision/Setup) Climbing 3-5 steps with a railing? (2) A lot (Maximal/Moderate assist) Score Raw score=11 t-Scale score=33.86 Standard error=3.22 [facility] 0-100%=72.57% MDC=4.72 A raw score of >= 16 is significantly associated with increased odds of discharge to home in addition to consideration made for the patient's cognition and social determinants of health. Balance Static/dynamic sitting and static/dynamic standing balance grades Balance Grade Sitting Static Good - patient able to maintain balance without handhold support, limited postural sway Sitting Dynamic Fair - patient accepts minimal challenge; able to maintain balance while turning head/trunk Standing Static Good - patient able to maintain balance without handhold support, limited postural sway Standing Dynamic Fair - patient accepts minimal challenge; able to maintain balance while turning head/trunk Activity Tolerance Patient limited with activity/intervention due to deconditioning and weakness Treatment Patient supine upon arrival. Pt transferred EOB, sat with UE support, pt stood with RWx, ambulated 10' to [facility] [place] for transport for MRI. Assessment At baseline, patient required assistance with ADLs , required assistance with functional mobility. Patient presenting with generalized weakness with functional activities, impaired dynamic balance with transfers, impaired dynamic balance with ambulation, and poor tolerance to upright positioning. Because of this, patient would have difficulty with independently performing bathing, dressing, toileting, bed mobility, transferring, ambulating on level surfaces, ambulating household distances, picking objects up off the floor, and diversional therapist's assistant. These functional limitations put the patient at an increased risk for falling, caregiver burden, complications due to immobilization, deconditioning, and decreased quality of life. Patient would benefit from skilled physical therapy services duringlength of stay for strengthening, balance training to decrease risk of falling, endurance training to improve activity tolerance, stair training, gait training, transfer training, progression of mobility, and assistive device training. Problems: Decreased core stability, Decreased functional mobility, Decreased gait tolerance, Decreased strength, Decreased activity tolerance, Impaired sitting balance, Impaired standing balance, Impaired dynamic balance, Gait impairment Rehab potential: Good for stated goals Plan Treatment Plan: Therapeutic Exercise, Therapeutic Activity, Gait Training, Neuromuscular Re-education, Transfer Training, Balance Training, Stair Training, Strengthening, Home Exercise Program PT Frequency/Duration: Daily for 14 days Recommendations Discharge recommendations: Patient would benefit from 1-2 hours of multidisciplinary therapy per day upon discharge from acute care setting to assist with returning to prior level of functioning. DME recommendations: Unable to make recommendations at this time. Goals [id number]: By the target date, patient will perform [id number] with complete independence, utilizing no assistive device, to improve independence with bed mobility and improve overall comfort and well-being. [id number]: By the target date, patient will perform sit to stand with modified independence and rolling walker to improve independence with functional mobility, improve quality of life, and improve ability to participate in activities of daily living that require standing. Gait: Patient will ambulate 150' with supervision and utilizing rolling walker in order to improve balance with ambulation and decrease risk of falling, improve quality of life, and improve ability to ambulate household distances Stairs: By the target date, patient will negotiate 3 step(s), with a step-to pattern, utilizing bilateral railing and modified independence, to demonstrate ability to safely negotiate stairs at home. Target Date: 03/28/2025 Goals were discussed with patient Education Patient educated on safety, use of call button, role of physical therapy, and plan of care and following, they were able to verbalize understanding. No further questions or concerns stated. Interdisciplinary Communication Following treatment, therapist communicated with nursing regarding patient's level of assistance needed during transfers for nursing mobility. Patient Disposition Upon Leaving With transport - going for MRI If this patient discharges prior to next therapy session, this note serves as the patient's discharge summary. Electronically signed by James Núñez, PT - 03/14/25 - 4:08 PM EDT PT Evaluation Completed * Ami Dangelo - 03/14/2025 11:22 AM EDT Completed MRI screening and educated patient on the need for this scan with STAT orders per MD. Shestated she will not be having this MRI until she eats first. I explained I could get her food rightafter and she refused. I let staff know of patients refusal. * Ivis Sequeira MD - 03/14/2025 9:14 AM EDT [facility] MEDICINE PROGRESS NOTE: Patient: Citlali Maravilla Date: 03/14/2025 ASSESSMENT and PLAN: Citlali Maravilla is a 60 y.o. female with a history of meningioma status postresection from 2017, history of CVA, seizure, tardive dyskinesia who presented on 03/14/2025 with headache and slurred speech and also found to carotid stenosis so transferred to us for neurosurgeon and the mold capper Consult DIAGNOSIS: Possible Internal carotid artery stenosis ? Headache/recurrent falls History of CVA with residual deficits Tardive dyskinesia History of meningioma Type 2 diabetes Hypertension Hyperlipidemia GERD Mood disorder PLAN: I am going to do a carotid Doppler to better evaluation blood flow Consult interventional cardiology service I will going to order MRI brain Insulin sliding scale Continue Lipitor aspirin Continue Keppra at home dosage BP control with nifedipine PT/OT I will order stat lab work CBC CMP still pending We will also follow consult neurosurgical service Looks like a very complex case need close watch Discussed with the patient and she told me she lives at home with somebody but no other family. Somebody tried to help her go to fpc I also reviewed the carotid Doppler report by myself it showed both side less than 50% no evidence of subclavian steal DVT Prophylaxis: SCD CODE STATUS : full Previous Living Condition: home Expected Disposition: TBD Expected Discharge Date: TBD Subjective Patient seen and examined at bedside this AM. Patient admitted last night due to headache and possible carotid stenosis ,Here for neurosurgery and also cardiology evaluation This morning saw her she is awake but the seem like her disability with slurred speech and per report she has an unstable gait and headache Objective Vitals: Temp: [98 ??F (36.7 ??C)-98.1 ??F (36.7 ??C)] 98 ??F (36.7 ??C) Pulse: [64-74] 64 Resp: [16-18] 18 BP: (144-175)/(84-100) 175/84 Intake/Output: No intake or output data in the 24 hours ending 03/14/25 0914 Physical exam: General: Looks uncomfortable and mild distress HEENT: Head atraumatic, normal cephalic. Neck: Supple. No JVD noted CVS: S1, S2, no S3 or S4. Regular rate and rhythm no murmur. Lungs: Bilateral air entry. Normal chest expansion. Clear to auscultation bilaterally. Abdomen: Soft. Nontender. Positive bowel sounds. CASING FLUSHER: Awake alert talking but mild no gross neurological focal deficits. Musculoskeletal: Range of motion is normal. No pedal edema. Skin: Warm and dry on exposed surface. Psychiatry: Mild agitation Medications: Scheduled Meds: aspirin 325 mg oral Daily atorvastatin 80 mg oral Every Night [Held by provider] dapagliflozin propanediol 10 mg oral Daily desvenlafaxine 100 mg oral Daily gabapentin 800 mg oral TID insulin 70/30 NPH-regular human 20 Units subcutaneous BID AC insulin regular 0-12 Units subcutaneous Q6H ZANDER levETIRAcetam 500 mg oral BID [Held by provider] lisinopriL 40 mg oral Daily NIFEdipine 30 mg oral Daily pantoprazole 40 mg oral Daily traZODone 150 mg oral Every Night valbenazine 80 mg oral Daily Continuous Infusions: Current Facility-Administered Medications Medication Dose Route Frequency Provider Last Rate Last Admin acetaminophen (TYLENOL) tablet 1,000 mg 1,000 mg oral Q6H PRN Rupert Meek PA-C aspirin EC tablet 325 mg 325 mg oral Daily Rupert Meek PA-C atorvastatin (LIPITOR) tablet 80 mg 80 mg oral Every Night Rupert Meek PA-C [Held by provider] dapagliflozin propanediol (FARXIGA) tablet 10 mg 10 mg oral Daily Rupert Meek PA-C desvenlafaxine (PRISTIQ) ER 24 hr tablet 100 mg 100 mg oral Daily Rupert Meek PA-C dextrose 50% (D50W) injection 25 g 25 g intravenous Q15 Min PRN Rupert Meek PA-C gabapentin (NEURONTIN) capsule 800 mg 800 mg oral TID Rupert Meek PA-C glucagon injection 1 mg 1 mg intraMUSCULAR Q15 Min PRN Rupert Meek PA-C glucose chew tab 16 g 16 g oral Q15 Min PRN Rupert Meek PA-C hydrALAZINE (APRESOLINE) injection 10 mg 10 mg intravenous Q6H PRN Rupert Meek PA-C 10 mg at 03/14/25 0540 HYDROcodone-acetaminophen (NORCO) 5-325 mg per tablet 1 tablet 1 tablet oral Q6H PRN Rupert Meek PA-C hydrOXYzine (ATARAX) tablet 25 mg 25 mg oral Q8H PRN Rupert Meek PA-C insulin 70/30 NPH-regular human (HumuLIN 70/30, NovoLIN 70/30) injection 20 Units 20 Units subcutaneous BID AC Rupert Meek PA-C insulin regular (HUMULIN R,NOVOLIN R) injection 0-12 Units subcutaneous Q6H [facility] Rupert Meek PA-C levETIRAcetam (KEPPRA) tablet 500 mg 500 mg oral BID Rupert Meek PA-C [Held by provider] lisinopriL (ZESTRIL) tablet 40 mg 40 mg oral Daily Rupert Meek PA-C magnesium sulfate IVPB 2 g in sterile water 50 mL (premix) 2 g intravenous Daily PRN Rupert Meek PA-C magnesium sulfate IVPB 2 g in sterile water 50 mL (premix) 2 g intravenous BID PRN Rupert Meek PA-C melatonin tablet 3 mg 3 mg oral Every Night PRN Rupert Meek PA-C morphine injection 2 mg 2 mg intravenous Q6H PRN Rupert Meek PA-C naloxone (NARCAN) injection 0.2 mg 0.2 mg intravenous Q2 Min PRN Rupert Meek PA-C NIFEdipine (PROCARDIA-XL) 24 hr tablet 30 mg 30 mg oral Daily Rupert Meek PA-C ondansetron (ZOFRAN-ODT) disintegrating tablet 4 mg 4 mg oral Q8H PRN Rupert Meek PA-C Or ondansetron (ZOFRAN) injection 4 mg 4 mg intravenous Q8H PRN Rupert Meek PA-C pantoprazole (PROTONIX) EC tablet 40 mg 40 mg oral Daily Rupert Meek PA-C potassium chloride (KLOR-CON) ER tablet 40 mEq 40 mEq oral 4x Daily PRN Rupert Meek PA-C potassium chloride IVPB 10 mEq in 100 mL sterile water (premix) 10 mEq intravenous Q1H PRN Rupert Meek PA-C sodium chloride flush 10 mL 10 mL intravenous PRN Rupert Meek PA-C tiZANidine (ZANAFLEX) tablet 4 mg 4 mg oral TID PRN Rupert Meek PA-C traZODone (DESYREL) tablet 150 mg 150 mg oral Every Night Rupert Meek PA-C valbenazine cap 80 mg 80 mg oral Daily Rupert Meek PA-C PRN Meds: @MEDSPRN@ Labs: Results for orders placed or performed during the hospital encounter of 03/14/25 (from the past 24 hours) Glucose, Nova Meter Status: Abnormal Collection Time: 03/14/25 4:52 AM Result Value Ref Range POC-GLUCOSE 133 (H) 70 - 110 mg/dL Pharmacy Informaticist [id number] Radiology: Radiology Results (last 3 days) No results found for the last 72 hours. Signed: 03/14/2025 documented in this encounter H&P Notes * Rupert Meek PA-C - 03/14/2025 2:04 AM EDT [facility] Patient Name: Citlali Maravilla : 1965 Date: 03/14/2025 PCP: [facility] Date of Admission: 03/14/2025 Chief Complaint: Headache, worsening slurred speech History of Present Illness Citlali Maravilla is a 60 y.o. female with a history of meningioma status postresection from 2016, history of CVA, tardive dyskinesia who presents to [facility] in [place], [place] for further evaluation and management of headache. Patient presented to [facility] emergency room with complaints of a headache. Patient has a history of meningioma status postresection with in 2017, and multiple other brain surgeries associated with epilepsy in the past in which she came to the ER due to headache and what she believes is worsening of her slurred speech. Patient does have chronically slurred speech and has tardive dyskinesia which is chronic and also has chronic slurring of her speech but believes it may have been be a bit worse as she believes that she is scared due to thinking she may have had another stroke. Patient has had CT scans in the past year for surveillance which were at her baseline comparatively. Patient also reported that she has had recurrent falls recently compared to normal. Lab results in the ER significant for WBC 7.9, hemoglobin 16.1, hematocrit crit 47.8, carbon dioxide 21, anion gap 18.6, BUN 23, creatinine 0.8, glucose 178, AST 54, troponin negative CT scans in the ER showed multiple subcortical and deep hypoattenuating white matter foci, but no hyperattenuating foci suggesting acute intracranial hemorrhage. CTA brain/neck did show moderate calcific atherosclerotic disease of the right intracranial ICA resulting in moderate stenosis of the ophthalmic segment, moderate calcification atherosclerotic disease of the left intracranial ICA resulting in moderate stenosis of the ophthalmologic segment. Notably she does have postsurgical changes compatible with left craniotomy with hardware fixation and right basilar craniectomy. Patient is beingad[facility] on [facility] of [facility]. Past Medical History: No past medical history on file. Past Surgical History: No past surgical history on file. Social History: Family History: No family history on file. Documented Allergies: Not on File Documented ONCOLOGY NURSE Medications: No medications prior to admission. Review of Systems A 14 point review of systems was obtained and is negative unless otherwise stated in the HPI. Available past medical, social and family history reviewed. Objective Vitals: Temp: [98.1 ??F (36.7 ??C)] 98.1 ??F (36.7 ??C) Pulse: [74] 74 Resp: [16] 16 BP: (144)/(100) 144/100 Intake/Output: No intake or output data in the 24 hours ending 03/14/25 0205 Physical Exam Vitals reviewed. Constitutional: Appearance: Normal appearance. HENT: Head: Normocephalic and atraumatic. Eyes: Extraocular Movements: Extraocular movements intact. Conjunctiva/sclera: Conjunctivae normal. Pupils: Pupils are equal, round, and reactive to light. Cardiovascular: Rate and Rhythm: Normal rate and regular rhythm. Pulmonary: Effort: Pulmonary effort is normal. Breath sounds: Normal breath sounds. Abdominal: General: Bowel sounds are normal. Musculoskeletal: Cervical back: Normal range of motion. Right lower leg: No edema. Left lower leg: No edema. Neurological: Mental Status: She is alert. Mental status is at baseline. Psychiatric: Mood and Affect: Mood normal. Behavior: Behavior normal. Recent Labs: No results found for this visit on 03/14/25 (from the past 24 hours). Microbiology Results (last 7 days) No results found for the last 168 hours. Radiology: Radiology Results (last 3 days) No results found for the last 72 hours. All Documented Medications: Scheduled Meds: Continuous Infusions: Current Facility-Administered Medications Medication Dose Route Frequency Provider Last Rate Last Admin acetaminophen (TYLENOL) tablet 1,000 mg 1,000 mg oral Q6H PRN Rupert Meek PA-C hydrALAZINE (APRESOLINE) injection 10 mg 10 mg intravenous Q6H PRN Rupert Meek PA-C HYDROcodone-acetaminophen (NORCO) 5-325 mg per tablet 1 tablet 1 tablet oral Q6H PRN Rupert Meek PA-C magnesium sulfate IVPB 2 g in sterile water 50 mL (premix) 2 g intravenous Daily PRN Rupert Meek PA-C magnesium sulfate IVPB 2 g in sterile water 50 mL (premix) 2 g intravenous BID PRN Rupert Meek PA-C melatonin tablet 3 mg 3 mg oral Every Night PRN Rupert Meek PA-C morphine injection 2 mg 2 mg intravenous Q6H PRN Rupert Meek PA-C naloxone (NARCAN) injection 0.2 mg 0.2 mg intravenous Q2 Min PRN Rupert Meek PA-C ondansetron (ZOFRAN-ODT) disintegrating tablet 4 mg 4 mg oral Q8H PRN Rupert Meek PA-C Or ondansetron (ZOFRAN) injection 4 mg 4 mg intravenous Q8H PRN Rupert Meek PA-C potassium chloride (KLOR-CON) ER tablet 40 mEq 40 mEq oral 4x Daily PRN Rupert Meek PA-C potassium chloride IVPB 10 mEq in 100 mL sterile water (premix) 10 mEq intravenous Q1H PRN Rupert Meek PA-C sodium chloride flush 10 mL 10 mL intravenous PRN Rupert Meek PA-C Assessment and Plan #Internal carotid artery stenosis #History of CVA with residual deficits #Tardive dyskinesia #Recurrent falls #History of meningioma - Patient with long history of neurosurgery operations, with slurred speech at baseline that statesis worsening currently. Patient also having recurrent falls and increased weakness on baseline residual deficits from CVA. - Lab work independently interpreted and unremarkable. - CTA showed moderate stenosis of bilateral ICA. - Consult cardiology - Consult neurosurgery - Ordered CBC, CMP, mag morning labs. - Holding DVT prophylaxis at the moment due to potential intervention. #Type 2 diabetes mellitus - Sliding scale insulin - Regular insulin 20 units twice daily with meals - Hold oral agents - Consistent carb diet not n.p.o. #Hypertension #Hyperlipidemia - Continue atorvastatin 80 mg daily - Continue nifedipine 30 mg daily - Holding lisinopril/Jardiance currently #GERD - Continue PPI #Mood disorder - Continue Pristiq 100 mg daily -Laboratory work and pertinent imaging results independently reviewed as noted in HPI. -Continue to monitor electrolytes with AM metabolic panel and replete as appropriate. -Monitor WBC count to assess for developing / worsening infection and hemoglobin with AM CBC. -Intermittent BP and pulse oximetry monitoring per unit parameters. -Continue appropriate home medications for chronic problems as ordered below. -After reviewing this patient's presentation, labs, imaging, and medical record and discussion withsupervising physician, we have to decided to admit them. They will require inpatient admission requiring >48hrs for work up and stabilization of their condition. - Moderate complexity of medical decision. -Evaluated 03/14/2025, 2:05 AM I, Rupert Meek, have personally reviewed pertinent laboratory, EKG, and imaging results, as wellas documentation in the patient's EMR and discussed with supervising physician as necessary. Laboratory and imaging orders per the above plan have been reviewed and addressed, please see orders below. Home medications have been reviewed and restarted if appropriate. Patient's case, assessment, and plan have been discussed on this date with RN. Glycemic control: Goal BS between 110-180 with SSI and regular insulin 20 units with meals. Nutrition: Orders Placed This Encounter Procedures NPO Except: Sips with meds GI prophylaxis: Protonix VTE prophylaxis: SCDs AM orders including labs/radiology/procedures placed. Code Status: Current Code Status Full code Disposition: Admit Prognosis: TBD Signed: Rupert Meek PA-C 03/14/2025, 2:05 AM Voice electric shaver mechanic technology (payleven) is used for dictation of this note and sound-alike words might be erroneously placed despite reviewing the note for accuracy. Errors in dictation mayreflect use of voice recognition software and not all errors in electric shaver mechanic may have been detected prior to signing. Active Orders Diet NPO Except: Sips with meds Frequency: Effective Now Number of Occurrences: Until Specified Nursing Ambulate TID Frequency: Until Discontinued Number of Occurrences: Until Specified Apply sequential compression device Frequency: Until Discontinued Number of Occurrences: Until Specified Continuous Pulse Oximetry Frequency: Until Discontinued Number of Occurrences: Until Specified Intake and Output Frequency: Q Shift Number of Occurrences: Until Specified Notify provider of change in patient condition Frequency: Until Discontinued Number of Occurrences: Until Specified Notify provider per standard parameters Frequency: Until Discontinued Number of Occurrences: Until Specified Telemetry monitoring for Other Indication Frequency: Until Discontinued Number of Occurrences: 48 Hours Vital Signs Frequency: Q4H Number of Occurrences: Until Specified Code Status Full code Frequency: Continuous Number of Occurrences: Until Specified Respiratory Care Oxygen Therapy -Nasal Cannula Frequency: Continuous Number of Occurrences: Until Specified IV Insert Peripheral IV Linked Order: And Frequency: Once Number of Occurrences: 1 Occurrences Saline Lock IV Linked Order: And Frequency: Once Number of Occurrences: 1 Occurrences Medications acetaminophen (TYLENOL) tablet 1,000 mg Frequency: Q6H PRN Dose: 1,000 mg Route: oral hydrALAZINE (APRESOLINE) injection 10 mg Frequency: Q6H PRN Dose: 10 mg Route: intravenous HYDROcodone-acetaminophen (NORCO) 5-325 mg per tablet 1 tablet Frequency: Q6H PRN Dose: 1 tablet Route: oral magnesium sulfate IVPB 2 g in sterile water 50 mL (premix) Frequency: Daily PRN Dose: 2 g Route: intravenous magnesium sulfate IVPB 2 g in sterile water 50 mL (premix) Frequency: BID PRN Dose: 2 g Route: intravenous melatonin tablet 3 mg Frequency: Every Night PRN Dose: 3 mg Route: oral morphine injection 2 mg Frequency: Q6H PRN Dose: 2 mg Route: intravenous naloxone (NARCAN) injection 0.2 mg Frequency: Q2 Min PRN Dose: 0.2 mg Route: intravenous ondansetron (ZOFRAN) injection 4 mg Linked Order: Or Frequency: Q8H PRN Dose: 4 mg Route: intravenous ondansetron (ZOFRAN-ODT) disintegrating tablet 4 mg Linked Order: Or Frequency: Q8H PRN Dose: 4 mg Route: oral potassium chloride (KLOR-CON) ER tablet 40 mEq Frequency: 4x Daily PRN Dose: 40 mEq Route: oral potassium chloride IVPB 10 mEq in 100 mL sterile water (premix) Frequency: Q1H PRN Dose: 10 mEq Route: intravenous sodium chloride flush 10 mL Linked Order: And Frequency: PRN Dose: 10 mL Route: intravenous Cosigned by Benjamin Ahumada MD at 03/14/2025 8:58 PM EDT documented in this encounter Consult Notes * Sherly Mathew PA-C - 03/14/2025 10:18 AM EDTAssociated Order(s): Inpatient consult to Neurosurgery Inpatient consult to Neurosurgery Consult performed by: Sherly Mathew PA-C Consult ordered by: Rupert Meek PA-C [facility] NEUROSURGERY CONSULT NOTE Primary Care Provider: [facility]Doc History of Present Illness Citlali Maravilla is a 60 y.o. female with a history of meningioma resection, CVA, tardive dyskinesia, and epilepsy who presents to the hospital with complaints of a headache. She advises that her headache yesterday started suddenly. She was worried she was having another CVA, so she presented to the ED quickly. She has had several episodes of headaches recently. She had associated nausea with her headache yesterday. Her headache is better today. She denies any new neurological symptoms at this time. She does report residual right-sided deficits from her previous stroke that is unchanged. Review of Systems Review of Systems All other systems reviewed and are negative. Past Medical History She has no past medical history on file. Past Surgical History She has no past surgical history on file. Family History She family history is not on file. Allergies Erythromycin, Methadone, Naratriptan, Quetiapine, Quinolones, Vilazodone, Cephalosporins, Penicillins, Trimethoprim, Ciprofloxacin, Eletriptan, Ketorolac, Ketorolac Tromethamine, Metoclopramide, Ondansetron, Sumatriptan, Aspartame, Dihydroergotamine, Erenumab-[place], [place] (Prunus Persica), Saccharin, and Sulfa (Sulfonamide Antibiotics) Medications Medications Prior to Admission Medication Sig Dispense Refill Last Dose/Taking aspirin 325 MG EC tablet Take 1 tablet (325 mg total) by mouth daily. 03/13/2025 atogepant (Qulipta) 60 mg tab Take 60 mg by mouth daily. 03/13/2025 atorvastatin (LIPITOR) 80 MG tablet Take 1 tablet (80 mg total) by mouth nightly. 03/13/2025 desvenlafaxine (PRISTIQ) 100 MG 24 hr tablet Take 1 tablet (100 mg total) by mouth daily. 03/13/2025 gabapentin (NEURONTIN) 800 MG tablet Take 1 tablet (800 mg total) by mouth 3 (three) times daily. Max Daily Amount: 2,400 mg 03/13/2025 insulin 70/30 NPH-regular human (HumuLIN 70/30, NovoLIN 70/30) 100 unit/mL (70- 30) injection [id number] Units under the skin 2 (two) times daily before meals. 03/13/2025 levETIRAcetam (KEPPRA) 500 MG tablet Take 1 tablet (500 mg total) by mouth 2 (two) times daily. 03/13/2025 lisinopriL (ZESTRIL) 5 MG tablet Take 1 tablet (5 mg total) by mouth daily. 03/13/2025 omeprazole (PriLOSEC) 40 MG capsule Take 1 capsule (40 mg total) by mouth daily. 03/13/2025 rimegepant 75 mg TbDL Take 75 mg by mouth daily as needed (daily PRN). Past Month tiZANidine (ZANAFLEX) 4 MG tablet Take 1 tablet (4 mg total) by mouth 3 (three) times daily as needed for muscle spasms. Past Week traZODone (DESYREL) 150 MG tablet Take 1 tablet (150 mg total) by mouth nightly. 03/13/2025 valbenazine 80 mg cap Take 80 mg by mouth daily. 03/13/2025 acetaminophen (TYLENOL) 325 MG tablet Take 1 tablet (325 mg total) by mouth every 6 (six) hours as needed for pain. alendronate (FOSAMAX) 70 MG tablet Take 1 tablet (70 mg total) by mouth once a week Take in the morning with a full glass of water, on an empty stomach, and do not take anything else by mouth or lie down for the next 30 min.. cetirizine (ZyrTEC) 10 MG tablet Take 1 tablet (10 mg total) by mouth daily. dapagliflozin propanediol (Farxiga) 10 mg tablet Take 1 tablet (10 mg total) by mouth daily. melatonin 5 mg tablet Take 1 tablet (5 mg total) by mouth every night as needed for sleep. NIFEdipine (ADALAT CC) 30 MG 24 hr tablet Take 1 tablet (30 mg total) by mouth daily. Vitals Blood pressure (!) 175/84, pulse 64, temperature 98 ??F (36.7 ??C), temperature source Oral, resp. rate 18, height 1.575 m (5' 2 ), weight 55 kg (121 lb 3.2 oz), SpO2 99%. Physical Exam Constitutional: General: She is not in acute distress. Appearance: Normal appearance. HENT: Head: Normocephalic and atraumatic. Nose: Nose normal. Mouth/Throat: Mouth: Mucous membranes are moist. Pharynx: Oropharynx is clear. Eyes: Extraocular Movements: Extraocular movements intact. Pupils: Pupils are equal, round, and reactive to light. Pulmonary: Effort: Pulmonary effort is normal. Musculoskeletal: General: No swelling, tenderness or signs of injury. Normal range of motion. Cervical back: Normal range of motion. Skin: General: Skin is warm and dry. Findings: No bruising, erythema or rash. Neurological: General: No focal deficit present. Mental Status: She is alert and oriented to person, place, and time. Motor: No weakness. Coordination: Coordination normal. Relevant Results No results found for this or any previous visit from the past 2 days. Assessment/Plan Discussed with Dr. Ann. MRI to be completed. Signed: Electronically signed by Sherly Mathew PA-C 03/14/25 10:18 AM EDT Cosigned by Srinivasa Ann MD at 03/17/2025 8:51 PM EDT * Kris Gan MD - 03/14/2025 8:42 AM EDT Consults Cardiology CONSULTATION Name Citlali Maravilla, 1965, 60 y.o., female Primary Cardiology: PCP: [facility] Admit Date 03/14/2025 Patient Location [id number] Chief Complaint/ Reason for Consult: ICA stenosis History of Present Illness 60 y.o. year old female with past medical history of meningioma status post resection from 2017, CVA, tardive dyskinesia presents for further evaluation and management of headache. Patient presented initally to OSH with headache and worsening slurred speech in the setting of headache. She has chronic headaches but thought her chronic slurred speech may be slightly worse and was worried she was having a stroke. CTA performed in the ER showed moderate calcific atherosclerotic disease of the rightintracranial ICA. Patient is feeling better, back to her baseline. Home Medications: Prior to Admission medications Medication Sig Start Date End Date Taking? Authorizing Provider aspirin 325 MG EC tablet Take 1 tablet (325 mg total) by mouth daily. Yes Historical Provider, atogepant (Qulipta) 60 mg tab Take 60 mg by mouth daily. Yes Historical Provider, atorvastatin (LIPITOR) 80 MG tablet Take 1 tablet (80 mg total) by mouth nightly. Yes Historical Provider, benztropine (COGENTIN) 1 MG tablet Take 1 tablet (1 mg total) by mouth 2 (two) times daily. Yes Historical Provider, desvenlafaxine (PRISTIQ) 100 MG 24 hr tablet Take 1 tablet (100 mg total) by mouth daily. Yes Historical Provider, furosemide (LASIX) 20 MG tablet Take 1 tablet (20 mg total) by mouth daily. Yes Historical Provider, gabapentin (NEURONTIN) 800 MG tablet Take 1 tablet (800 mg total) by mouth 3 (three) times daily. Max Daily Amount: 2,400 mg Yes Historical Provider, hydrOXYzine (ATARAX) 25 MG tablet Take 1 tablet (25 mg total) by mouth every 8 (eight) hours as needed for itching Look-alike/Sound-alike medication. Yes Historical Provider, insulin 70/30 NPH-regular human (HumuLIN 70/30, NovoLIN 70/30) 100 unit/mL (70- 30) injection [id number] Units under the skin 2 (two) times daily before meals. Yes Historical Provider, levETIRAcetam (KEPPRA) 500 MG tablet Take 1 tablet (500 mg total) by mouth 2 (two) times daily Look-alike/Sound-alike medication. Yes Historical Provider, lisinopriL (ZESTRIL) 5 MG tablet Take 1 tablet (5 mg total) by mouth daily. Yes Historical Provider, metFORMIN (FORTAMET) 500 MG (OSM) 24 hr tablet Take 1 tablet (500 mg total) by mouth daily with breakfast. Yes Historical Provider, omeprazole (PriLOSEC) 40 MG capsule Take 1 capsule (40 mg total) by mouth daily. Yes Historical Provider, pregabalin (LYRICA) 200 MG capsule Take 1 capsule (200 mg total) by mouth 2 (two) times daily. Max Daily Amount: 400 mg Yes Historical Provider, rimegepant 75 mg TbDL Take 75 mg by mouth daily as needed (daily PRN). Yes Historical Provider, tiZANidine (ZANAFLEX) 4 MG tablet Take 1 tablet (4 mg total) by mouth 3 (three) times daily as needed for muscle spasms. Yes Historical Provider, traZODone (DESYREL) 150 MG tablet Take 1.5 tablets (225 mg total) by mouth nightly. Yes Historical Provider, valbenazine 80 mg cap Take 80 mg by mouth daily. Yes Historical Provider, Allergies Erythromycin, Methadone, Naratriptan, Quetiapine, Quinolones, Vilazodone, Cephalosporins, Penicillins, Trimethoprim, Ciprofloxacin, Eletriptan, Ketorolac, Ketorolac Tromethamine, Metoclopramide, Ondansetron, Sumatriptan, Aspartame, Dihydroergotamine, Erenumab-[place], [place] (Prunus Persica), Saccharin, and Sulfa (Sulfonamide Antibiotics) Surgical History: Pt has no past surgical history on file. Tobacco History Pt has no history on file for tobacco use. Family History Noncontributory Review of Systems Complete 10 point ROS Normal or Non-contributory except complaints described in HPI or other sections of this note. Objective Vital ranges lat 24 hours Temp: [97.2 ??F (36.2 ??C)-98.1 ??F (36.7 ??C)] 97.2 ??F (36.2 ??C) Pulse: [64-105] 81 Resp: [16-18] 18 BP: (138-175)/(84-100) 146/92 Intake and Output 24 hours: Intake/Output Summary (Last 24 hours) at 03/14/2025 1545 Last data filed at 03/14/2025 0800 Gross per 24 hour Intake 0 ml Output -- Net 0 ml Net I&O this admission: Net IO Since Admission: 0 mL [03/14/25 1545] Physical Exam General: Alert and oriented, No acute distress. Eye: Pupils are equal, round and reactive to light, Vision unchanged. HENT: Normocephalic, Oral mucosa is moist. Neck: Supple, Non-tender, Respiratory: Respirations are non-labored, Symmetrical chest wall expansion. Cardiovascular: Normal rate, Regular rhythm Gastrointestinal: Soft, Non-distended, Normal bowel sounds. Musculoskeletal: Normal range of motion, Normal strength. Integumentary: Warm, Dry, [place]. Neurologic: Alert, Oriented. Psychiatric: Cooperative, Appropriate mood & affect. Labs: WBC Date Value Ref Range Status 03/14/2025 8.3 4.0 - 10.0 K/??L Final Hemoglobin Date Value Ref Range Status 03/14/2025 15.8 (H) 11.2 - 15.7 GM/DL Final Platelets Date Value Ref Range Status 03/14/2025 218 140 - 375 K/CU MM Final Creatinine Date Value Ref Range Status 03/14/2025 0.83 0.57 - 1.11 mg/dL Final BUN Date Value Ref Range Status 03/14/2025 21.3 (H) 9.8 - 20.1 mg/dL Final Potassium Date Value Ref Range Status 03/14/2025 3.3 (L) 3.4 - 5.1 meq/L Final Sodium Date Value Ref Range Status 03/14/2025 144 136 - 145 meq/L Final Magnesium Date Value Ref Range Status 03/14/2025 1.5 (L) 1.6 - 2.6 mg/dL Final No results found for: CKTOTAL , CKMB , CKMBINDEX No results found for: BNP Imaging: Echo Results (last 7 days) No results found for the last 168 hours. Assessment and Plan Problem List: Principal Problem: Internal carotid artery stenosis Active Problems: Carotid stenosis, right IMPRESSION: Intracranial Internal carotid artery stenosis CTA Moderate calcific atherosclerotic disease of the right intracranial ICA resulting in moderate stenosis of the ophthalmic segment, moderate calcification atherosclerotic disease of the left intracranial ICA resulting in moderate stenosis of the ophthalmologic segment. 03/14/25 Carotid Blood Flow Bilateral: no stenosis Hx of CVA CT Head OSH: multiple subcortical and deep hypoattenuating white matter foci. No acute intracranialhemorrhage ECHO 03/12/25: EF 56%, left ventricular wall thickness is consistent with mild concentric. Type II DM HTN -Uncontrolled currently Home meds Nifidepine XL 30mg, Lisinopril 40mg HLD Tardive dyskinesia History of meningioma PLAN: 03/14/25 60-year-old female patient who presented with headaches. Patient had workup for possible TIA or stroke and was found to have carotid artery stenosis. The carotid lesion is in the intracranial segmentat the ophthalmic artery level. The cervical carotid artery is without any significant stenosis based on the duplex scan findings. At this point recommend DAPT therapy for her intracranial carotid artery stenosis. Recommend adjustments to her medications for better blood pressure control. Nothing else to add from a vascular standpoint we will sign off contact us with any further questions. Electronically signed by: Nona Garza PA-C, 03/14/2025 at 8:42 AM documented in this encounter Miscellaneous Notes * Plan of Care - Pino Rojas RN - 03/17/2025 4:02 PM EDT Problem: Compromised Skin Integrity Goal: LTG - Patient will be free from infection Outcome: Progressing Goal: LTG - Patient will maintain/improve skin integrity through proper skin care techniques Outcome: Progressing Goal: LTG - Patient will demonstrate appropriate pressure relief techniques Outcome: Progressing Goal: LTG - Patient will demonstrate appropriate skin care techniques Outcome: Progressing Goal: LTG - Patient will be free from infection Outcome: Progressing Goal: STG - Patient demonstrates skin care/treatment/dressing change Outcome: Progressing Goal: STG - Patient will maintain good skin integrity Outcome: Progressing Goal: STG - Patient exhibits signs of wound healing. Outcome: Progressing Goal: STG - Patient demonstrates pressure reduction techniques Outcome: Progressing Goal: STG - Patient demonstrates preventative skin care measures Outcome: Progressing Problem: Pain Goal: Patient's pain/discomfort is manageable Description: Assess and monitor patient's pain using appropriate pain scale. Collaborate with interdisciplinary team and initiate plan and interventions as ordered. Re-assess patient's pain level after pain management intervention. Outcome: Progressing Problem: Safety Goal: Patient will be injury free during hospitalization Description: Assess and monitor vitals signs, neurological status including level of consciousness and orientation. Assess patient's risk for falls and implement fall prevention plan of care and interventions per hospital policy. Ensure arm band on, uncluttered walking paths in room, adequate room lighting, call light and overbed table within reach, bed in low position, wheels locked, side rails up per policy, and non-skid footwear provided. Outcome: Progressing Problem: Potential for Developing a Blood Clot Goal: Tissue perfusion is adequate - venous Description: Assess and monitor skin color and temperature, skin integrity, pulses, capillary refill, edema, pain in extremities, Homans' sign, labs (D- dimer), and diagnostic tests (ultrasound, CT scan, VQ scan). Monitor for signs and symptoms of deep vein thrombosis (swelling of calf/thigh, redness, pain, tenderness). Monitor for signs and symptoms of pulmonary embolism (dyspnea, tachypnea, tachycardia). Collaborate with interdisciplinary team and initiate plans and interventions as needed Outcome: Progressing Problem: Daily Care Goal: Daily care needs are met Description: Assess and monitor ability to perform self care and identify potential discharge needs. Outcome: Progressing Problem: Potential for Infection Goal: Remains infection free Description: Assess and monitor vital signs, skin (color, moisture, integrity, turgor), respiratorystatus, urinary and gastrointestinal status, and labs (WBC, cultures). Administer antibiotics and antipyretics as ordered. Ensure aseptic care of all intravenous lines, invasive tubes/drains and wounds. Monitor for signs and symptoms of infection (redness, warmth, discharge, increased body temperature). Wash hands properly before and after each patient care activity. Follow isolation guidelines per hospital protocol/policy. Collaborate with interdisciplinary team and initiate plan and interventions as ordered. Outcome: Progressing Problem: Psychosocial Needs Goal: Demonstrates ability to cope with hospitalization/illness Description: Assess and monitor patients ability to cope with his/her illness. Outcome: Progressing Goal: Collaborate with patient/family/caregiver to identify patient specific goals for this hospitalization Outcome: Progressing Problem: Anxiety Goal: Anxiety is at manageable level Description: Assess and monitor patient's anxiety level. Monitor for signs and symptoms of anxiety both physical and emotional (heart palpitations, chest pain, shortness of breath, headaches, nausea,feeling jumpy, restlessness, irritable, apprehensive). Collaborate with interdisciplinary team and initiate plan and interventions as ordered. Outcome: Progressing Problem: Inadequate Coping Goal: Demonstrates ability to cope effectively Description: Patient is able to verbalize feelings related to emotional state. Outcome: Progressing Goal: Verbalizes adaptive coping mechanisms Description: Able to verbalize adaptive coping mechanisms such as physical activity, distraction, and deep breathing exercises. Outcome: Progressing Goal: Verbalizes personal strengths Description: Spend time with the patient using empathy and active listening skills. Outcome: Progressing Problem: Progressive Mobility Goal: BMAT Level 3 - With 1 to 2-person and/or mechanical lifting assistance: Outcome: Progressing Problem: Discharge Barriers Goal: Patient's discharge needs are met Description: Collaborate with interdisciplinary team and initiate plans and interventions as needed. Outcome: Progressing * Plan of Care - David Balbuena RN - 03/17/2025 12:58 AM EDT Problem: Compromised Skin Integrity Goal: LTG - Patient will be free from infection Outcome: Progressing Problem: Pain Goal: Patient's pain/discomfort is manageable Description: Assess and monitor patient's pain using appropriate pain scale. Collaborate with interdisciplinary team and initiate plan and interventions as ordered. Re-assess patient's pain level after pain management intervention. Outcome: Progressing * Plan of Care - Ami Dangelo - 03/16/2025 7:29 PM EDT Problem: Compromised Skin Integrity Goal: LTG - Patient will be free from infection Outcome: Progressing Goal: LTG - Patient will maintain/improve skin integrity through proper skin care techniques Outcome: Progressing Goal: LTG - Patient will demonstrate appropriate pressure relief techniques Outcome: Progressing Goal: LTG - Patient will demonstrate appropriate skin care techniques Outcome: Progressing Goal: LTG - Patient will be free from infection Outcome: Progressing Goal: STG - Patient demonstrates skin care/treatment/dressing change Outcome: Progressing Goal: STG - Patient will maintain good skin integrity Outcome: Progressing Goal: STG - Patient exhibits signs of wound healing. Outcome: Progressing Goal: STG - Patient demonstrates pressure reduction techniques Outcome: Progressing Goal: STG - Patient demonstrates preventative skin care measures Outcome: Progressing Problem: Pain Goal: Patient's pain/discomfort is manageable Description: Assess and monitor patient's pain using appropriate pain scale. Collaborate with interdisciplinary team and initiate plan and interventions as ordered. Re-assess patient's pain level after pain management intervention. Outcome: Progressing Problem: Safety Goal: Patient will be injury free during hospitalization Description: Assess and monitor vitals signs, neurological status including level of consciousness and orientation. Assess patient's risk for falls and implement fall prevention plan of care and interventions per hospital policy. Ensure arm band on, uncluttered walking paths in room, adequate room lighting, call light and overbed table within reach, bed in low position, wheels locked, side rails up per policy, and non-skid footwear provided. Outcome: Progressing Problem: Potential for Developing a Blood Clot Goal: Tissue perfusion is adequate - venous Description: Assess and monitor skin color and temperature, skin integrity, pulses, capillary refill, edema, pain in extremities, Homans' sign, labs (D- dimer), and diagnostic tests (ultrasound, CT scan, VQ scan). Monitor for signs and symptoms of deep vein thrombosis (swelling of calf/thigh, redness, pain, tenderness). Monitor for signs and symptoms of pulmonary embolism (dyspnea, tachypnea, tachycardia). Collaborate with interdisciplinary team and initiate plans and interventions as needed Outcome: Progressing Problem: Daily Care Goal: Daily care needs are met Description: Assess and monitor ability to perform self care and identify potential discharge needs. Outcome: Progressing Problem: Potential for Infection Goal: Remains infection free Description: Assess and monitor vital signs, skin (color, moisture, integrity, turgor), respiratorystatus, urinary and gastrointestinal status, and labs (WBC, cultures). Administer antibiotics and antipyretics as ordered. Ensure aseptic care of all intravenous lines, invasive tubes/drains and wounds. Monitor for signs and symptoms of infection (redness, warmth, discharge, increased body temperature). Wash hands properly before and after each patient care activity. Follow isolation guidelines per hospital protocol/policy. Collaborate with interdisciplinary team and initiate plan and interventions as ordered. Outcome: Progressing Problem: Psychosocial Needs Goal: Demonstrates ability to cope with hospitalization/illness Description: Assess and monitor patients ability to cope with his/her illness. Outcome: Progressing Goal: Collaborate with patient/family/caregiver to identify patient specific goals for this hospitalization Outcome: Progressing Problem: Anxiety Goal: Anxiety is at manageable level Description: Assess and monitor patient's anxiety level. Monitor for signs and symptoms of anxiety both physical and emotional (heart palpitations, chest pain, shortness of breath, headaches, nausea,feeling jumpy, restlessness, irritable, apprehensive). Collaborate with interdisciplinary team and initiate plan and interventions as ordered. Outcome: Progressing Problem: Inadequate Coping Goal: Demonstrates ability to cope effectively Description: Patient is able to verbalize feelings related to emotional state. Outcome: Progressing Goal: Verbalizes adaptive coping mechanisms Description: Able to verbalize adaptive coping mechanisms such as physical activity, distraction, and deep breathing exercises. Outcome: Progressing Goal: Verbalizes personal strengths Description: Spend time with the patient using empathy and active listening skills. Outcome: Progressing Problem: Progressive Mobility Goal: BMAT Level 3 - With 1 to 2-person and/or mechanical lifting assistance: Outcome: Progressing Problem: Discharge Barriers Goal: Patient's discharge needs are met Description: Collaborate with interdisciplinary team and initiate plans and interventions as needed. Outcome: Progressing * Plan of Care - David Balbuena RN - 03/16/2025 1:22 AM EDT Problem: Compromised Skin Integrity Goal: LTG - Patient will be free from infection Outcome: Progressing Problem: Pain Goal: Patient's pain/discomfort is manageable Description: Assess and monitor patient's pain using appropriate pain scale. Collaborate with interdisciplinary team and initiate plan and interventions as ordered. Re-assess patient's pain level after pain management intervention. Outcome: Progressing * Plan of Care - Rosie Bradford PA-C - 03/15/2025 5:28 PM EDT Brain MRI w/wo contrast reviewed by Dr. Ty. Post-surgical changes are noted to s/p suboccipital and frontoparietal craniotomies. Otherwise, scans are within normal limits without evidence of tumor recurrence, hydrocephalus, or orther surgical processes. Recommend neurology consultation for headache management. No neurosurgical followup needed at this time. Neurosurgery to sign off. Cosigned by Srinivasa Ann MD at 03/17/2025 8:51 PM EDT * Plan of Care - David Balbuena RN - 03/15/2025 2:21 AM EDT Problem: Compromised Skin Integrity Goal: LTG - Patient will be free from infection Outcome: Progressing Problem: Pain Goal: Patient's pain/discomfort is manageable Description: Assess and monitor patient's pain using appropriate pain scale. Collaborate with interdisciplinary team and initiate plan and interventions as ordered. Re-assess patient's pain level after pain management intervention. Outcome: Progressing * Plan of Care - Sherly Chaidez RN - 03/14/2025 3:13 AM EDT Problem: Compromised Skin Integrity Goal: LTG - Patient will be free from infection Outcome: Progressing Goal: LTG - Patient will maintain/improve skin integrity through proper skin care techniques Outcome: Progressing Goal: LTG - Patient will demonstrate appropriate pressure relief techniques Outcome: Progressing Goal: LTG - Patient will demonstrate appropriate skin care techniques Outcome: Progressing Goal: LTG - Patient will be free from infection Outcome: Progressing Goal: STG - Patient demonstrates skin care/treatment/dressing change Outcome: Progressing Goal: STG - Patient will maintain good skin integrity Outcome: Progressing Goal: STG - Patient exhibits signs of wound healing. Outcome: Progressing Goal: STG - Patient demonstrates pressure reduction techniques Outcome: Progressing Goal: STG - Patient demonstrates preventative skin care measures Outcome: Progressing Problem: Pain Goal: Patient's pain/discomfort is manageable Description: Assess and monitor patient's pain using appropriate pain scale. Collaborate with interdisciplinary team and initiate plan and interventions as ordered. Re-assess patient's pain level after pain management intervention. Outcome: Progressing Problem: Safety Goal: Patient will be injury free during hospitalization Description: Assess and monitor vitals signs, neurological status including level of consciousness and orientation. Assess patient's risk for falls and implement fall prevention plan of care and interventions per hospital policy. Ensure arm band on, uncluttered walking paths in room, adequate room lighting, call light and overbed table within reach, bed in low position, wheels locked, side rails up per policy, and non-skid footwear provided. Outcome: Progressing Problem: Potential for Developing a Blood Clot Goal: Tissue perfusion is adequate - venous Description: Assess and monitor skin color and temperature, skin integrity, pulses, capillary refill, edema, pain in extremities, Homans' sign, labs (D- dimer), and diagnostic tests (ultrasound, CT scan, VQ scan). Monitor for signs and symptoms of deep vein thrombosis (swelling of calf/thigh, redness, pain, tenderness). Monitor for signs and symptoms of pulmonary embolism (dyspnea, tachypnea, tachycardia). Collaborate with interdisciplinary team and initiate plans and interventions as needed Outcome: Progressing Problem: Daily Care Goal: Daily care needs are met Description: Assess and monitor ability to perform self care and identify potential discharge needs. Outcome: Progressing Problem: Potential for Infection Goal: Remains infection free Description: Assess and monitor vital signs, skin (color, moisture, integrity, turgor), respiratorystatus, urinary and gastrointestinal status, and labs (WBC, cultures). Administer antibiotics and antipyretics as ordered. Ensure aseptic care of all intravenous lines, invasive tubes/drains and wounds. Monitor for signs and symptoms of infection (redness, warmth, discharge, increased body temperature). Wash hands properly before and after each patient care activity. Follow isolation guidelines per hospital protocol/policy. Collaborate with interdisciplinary team and initiate plan and interventions as ordered. Outcome: Progressing Problem: Psychosocial Needs Goal: Demonstrates ability to cope with hospitalization/illness Description: Assess and monitor patients ability to cope with his/her illness. Outcome: Progressing Goal: Collaborate with patient/family/caregiver to identify patient specific goals for this hospitalization Outcome: Progressing Problem: Anxiety Goal: Anxiety is at manageable level Description: Assess and monitor patient's anxiety level. Monitor for signs and symptoms of anxiety both physical and emotional (heart palpitations, chest pain, shortness of breath, headaches, nausea,feeling jumpy, restlessness, irritable, apprehensive). Collaborate with interdisciplinary team and initiate plan and interventions as ordered. Outcome: Progressing Problem: Inadequate Coping Goal: Demonstrates ability to cope effectively Description: Patient is able to verbalize feelings related to emotional state. Outcome: Progressing Goal: Verbalizes adaptive coping mechanisms Description: Able to verbalize adaptive coping mechanisms such as physical activity, distraction, and deep breathing exercises. Outcome: Progressing Goal: Verbalizes personal strengths Description: Spend time with the patient using empathy and active listening skills. Outcome: Progressing Problem: Progressive Mobility Goal: BMAT Level 3 - With 1 to 2-person and/or mechanical lifting assistance: Outcome: Progressing Problem: Discharge Barriers Goal: Patient's discharge needs are met Description: Collaborate with interdisciplinary team and initiate plans and interventions as needed. Outcome: Progressing documented in this encounter Plan of Treatment Upcoming Encounters Date Type Department Care Team (Late st Contact Info) Description 05/24/2025 9:00 AM EST Office Visit [facility] Cardiology [address] [place] [address] Kris Gan MD [address] [facility] [address] [place] [id number] documented as of this encounter Procedures Procedure Name Priority Date/Time Associated Diagnosis Comments NOVA GLUCOSE POC Routine 03/18/2025 11:5 0 AM EDT NOVA GLUCOSE POC Routine 03/18/2025 3:41 AM EDT NOVA GLUCOSE POC Routine 03/17/2025 9:43 PM EDT NOVA GLUCOSE POC Routine 03/17/2025 5:54 PM EDT NOVA GLUCOSE POC Routine 03/17/2025 11:5 8 AM EDT NOVA GLUCOSE POC Routine 03/17/2025 5:56 AM EDT NOVA GLUCOSE POC Routine 03/17/2025 12:2 0 AM EDT NOVA GLUCOSE POC Routine 03/16/2025 8:53 PM EDT NOVA GLUCOSE POC Routine 03/16/2025 3:32 PM EDT NOVA GLUCOSE POC Routine 03/16/2025 11:3 9 AM EDT NOVA GLUCOSE POC Routine 03/16/2025 5:47 AM EDT NOVA GLUCOSE POC Routine 03/15/2025 8:00 PM EDT NOVA GLUCOSE POC Routine 03/15/2025 11:2 9 AM EDT MAGNESIUM STAT 03/15/2025 6:13 AM EDT LIPID PANEL STAT 03/15/2025 6:13 AM EDT BASIC METABOLIC PANEL STAT 03/15/2025 6:13 AM EDT NOVA GLUCOSE POC Routine 03/15/2025 5:35 AM EDT NOVA GLUCOSE POC Routine 03/14/2025 7:16 PM EDT NOVA GLUCOSE POC Routine 03/14/2025 4:54 PM EDT MRI BRAIN STEALTH WITH WITHOUT CONTRAST STAT 03/14/2025 3:54 PM EDT US CAROTID BLOOD FLOW BILATERAL AGNIESZKA 03/14/2025 12:46 PM EDT NOVA GLUCOSE POC Routine 03/14/2025 11:3 3 AM EDT CBC W/ AUTO DIFF STAT 03/14/2025 10:4 9 AM EDT MAGNESIUM STAT 03/14/2025 10:49 AM EDT COMPREHENSIVE METABOLIC PANEL STAT 03/14/2025 10:49 AM EDT NOVA GLUCOSE POC Routine 03/14/2025 4:52 AM EDT documented in this encounter Results * (ABNORMAL) Glucose, Nova Meter (03/18/2025 11:50 AM EDT) POC-GLUCOSE 331(H) 70 - 110 mg/dL 03/18/2025 11:58 AM EDT [facility] Comment: In the event of poor peripheral blood flow, venous or arterial blood should be used due to the potential of erroneous results. Notified Nurse [facility] Pharm[facility] Informaticist [id number] 03/18/2025 11:58 AM EDT [facility] Blood WHOLE BLOOD / Unknown 03/18/2025 11:50 AM EDT 03/18/2025 11:57 AM EDT Narrative [facility] - 03/18/2025 11:58 AM EDT Pharmacy Informaticist ID is - [id number] us Ivis Sequeira MD POINT OF CARE TEST ORDERABLES Fi nal Result Performing Organization Address [facility] Phone Number [facility] [address] [phone] * (ABNORMAL) Glucose, Nova Meter (03/18/2025 3:41 AM EDT) POC-GLUCOSE 300(H) 70 - 110 mg/dL 03/18/2025 3:42 AM EDT [facility] Comment: In the event of poor peripheral blood flow, venous or arterial blood should be used due to the potential of erroneous results. Notified Nurse [facility] Informaticist [id number] 03/18/2025 3:42 AM EDT [facility] Blood WHOLE BLOOD / Unknown 03/18/2025 3:41 AM EDT 03/18/2025 3:42 AM EDT Narrative [facility] - 03/18/2025 3:42 AM EDT Pharmacy Informaticist ID is - [id number] us Ivis Sequeira MD POINT OF CARE TEST ORDERABLES Fi nal Result Performing Organization Address [facility] Co de Phone Number [facility] [address] [phone] * (ABNORMAL) Glucose, Nova Meter (03/17/2025 9:43 PM EDT) POC-GLUCOSE 277(H) 70 - 110 mg/dL 03/17/2025 9:45 PM EDT [facility] Comment: In the event of poor peripheral blood flow, venous or arterial blood should be used due to the potential of erroneous results. Notified Nurse [facility] Informaticist [id number] 03/17/2025 9:45 PM EDT [facility] Blood WHOLE BLOOD / Unknown 03/17/2025 9:43 PM EDT 03/17/2025 9:45 PM EDT Narrative [facility] - 03/17/2025 9:45 PM EDT Pharmacy Informaticist ID is - [id number] us Ivis Sequeira MD POINT OF CARE TEST ORDERABLES Fi nal Result Performing Organization Address [facility] Number [facility] [address] [phone] * (ABNORMAL) Glucose, Nova Meter (03/17/2025 5:54 PM EDT) POC-GLUCOSE 376(H) 70 - 110 mg/dL 03/17/2025 5:55 PM EDT [facility] Comment: In the event of poor peripheral blood flow, venous or arterial blood should be used due to the potential of erroneous results. Notified Nurse [facility] Informaticist [id number] 03/17/2025 5:55 PM EDT [facility] Blood WHOLE BLOOD / Unknown 03/17/2025 5:54 PM EDT 03/17/2025 5:55 PM EDT Narrative [facility] - 03/17/2025 5:55 PM EDT Pharmacy Informaticist ID is - [id number] us Ivis Sequeira MD POINT OF CARE TEST ORDERABLES Fi nal Result Performing Organization Address [facility] Co de Phone Number [facility] [address] [phone] * (ABNORMAL) Glucose, Nova Meter (03/17/2025 11:58 AM EDT) POC-GLUCOSE 213(H) 70 - 110 mg/dL 03/17/2025 11:59 AM EDT [facility] Comment: In the event of poor peripheral blood flow, venous or arterial blood should be used due to the potential of erroneous results. Notified Nurse [facility] Pharm[facility] Informaticist [id number] 03/17/2025 11:59 AM EDT [facility] Blood WHOLE BLOOD / Unknown 03/17/2025 11:58 AM EDT 03/17/2025 11:59 AM EDT Narrative [facility] - 03/17/2025 11:59 AM EDT Pharmacy Informaticist ID is - [id number] Ivis Sequeira MD POINT OF CARE TEST ORDERABLES Fi nal Result Performing Organization Address [facility] Number [facility] [address] [phone] * (ABNORMAL) Glucose, Nova Meter (03/17/2025 5:56 AM EDT) POC-GLUCOSE 209(H) 70 - 110 mg/dL 03/17/2025 6:01 AM EDT [facility] Comment: In the event of poor peripheral blood flow, venous or arterial blood should be used due to the potential of erroneous results. Notified Nurse [facility] Informaticist [id number] 03/17/2025 6:01 AM EDT [facility] Blood WHOLE BLOOD / Unknown 03/17/2025 5:56 AM EDT 03/17/2025 6:01 AM EDT Narrative [facility] - 03/17/2025 6:01 AM EDT Pharmacy Informaticist ID is - [id number] us Ivis Sequeira MD POINT OF CARE TEST ORDERABLES Fi nal Result Performing Organization Address [facility] Co de Phone Number [facility] [address] [phone] * (ABNORMAL) Glucose, Nova Meter (03/17/2025 12:20 AM EDT) [facility] POC-GLUCOSE 242(H) 70 - 110 mg/dL 03/17/2025 12:21 AM EDT [facility] Comment: In the event of poor peripheral blood flow, venous or arterial blood should be used due to the potential of erroneous results. Notified Nurse [facility] Informaticist [id number] 03/17/2025 12:21 AM EDT [facility] Blood WHOLE BLOOD / Unknown 03/17/2025 12:20 AM EDT 03/17/2025 12:21 AM EDT Narrative [facility] - 03/17/2025 12:21 AM EDT Pharmacy Informaticist ID is - [id number] Ivis Sequeira MD POINT OF CARE TEST ORDERABLES Fi nal Result Performing Organization Address [facility] Number [facility] [address] [phone] * (ABNORMAL) Glucose, Nova Meter (03/16/2025 8:53 PM EDT) [facility] POC-GLUCOSE 249(H) 70 - 110 mg/dL 03/16/2025 8:56 PM EDT [facility] Comment: In the event of poor peripheral blood flow, venous or arterial blood should be used due to the potential of erroneous results. Notified Nurse [facility] Pharm[facility] Informaticist [id number] 03/16/2025 8:56 PM EDT [facility] Blood WHOLE BLOOD / Unknown 03/16/2025 8:53 PM EDT 03/16/2025 8:56 PM EDT Narrative [facility] - 03/16/2025 8:56 PM EDT Pharmacy Informaticist ID is - [id number] Ivis Sequeira MD POINT OF CARE TEST ORDERABLES Fi nal Result Performing Organization Address [facility] Number [facility] [address] [phone] * (ABNORMAL) Glucose, Nova Meter (03/16/2025 3:32 PM EDT) POC-GLUCOSE 303(H) 70 - 110 mg/dL 03/16/2025 3:33 PM EDT [facility] Comment: In the event of poor peripheral blood flow, venous or arterial blood should be used due to the potential of erroneous results. Protocols Followed Pharmacy Informaticist [id number] 03/16/2025 3:33 PM EDT [facility] Blood WHOLE BLOOD / Unknown 03/16/2025 3:32 PM EDT 03/16/2025 3:33 PM EDT Narrative [facility] - 03/16/2025 3:33 PM EDT Pharmacy Informaticist ID is - [id number] Ivis Sequeira MD POINT OF CARE TEST ORDERABLES Fi nal Result Performing Organization Address [facility] [address] [phone] * (ABNORMAL) Glucose, Nova Meter (03/16/2025 11:39 AM EDT) [facility] POC-GLUCOSE 324(H) 70 - 110 mg/dL 03/16/2025 10:00 PM EDT [facility] Comment: In the event of poor peripheral blood flow, venous or arterial blood should be used due to the potential of erroneous results. Protocols Followed Pharmacy Informaticist [id number] 03/16/2025 10:00 PM EDT [facility] Blood WHOLE BLOOD / Unknown 03/16/2025 11:39 AM EDT 03/16/2025 10:00 PM EDT Narrative [facility] - 03/16/2025 10:00 PM EDT Pharmacy Informaticist ID is - [id number] us Ivis Sequeira MD POINT OF CARE TEST ORDERABLES Fi nal Result Performing Organization Address [facility] Co de Phone Number [facility] [address] [phone] * (ABNORMAL) Glucose, Nova Meter (03/16/2025 5:47 AM EDT) Pathologist [facility] POC-GLUCOSE 216(H) 70 - 110 mg/dL 03/16/2025 5:48 AM EDT [facility] Comment: In the event of poor peripheral blood flow, venous or arterial blood should be used due to the potential of erroneous results. Notified Nurse [facility] Pharm[facility] Informaticist [id number] 03/16/2025 5:48 AM EDT [facility] Blood WHOLE BLOOD / Unknown 03/16/2025 5:47 AM EDT 03/16/2025 5:48 AM EDT Narrative [facility] - 03/16/2025 5:48 AM EDT Pharmacy Informaticist ID is - [id number] Ivis Sequeira MD POINT OF CARE TEST ORDERABLES Fi nal Result Performing Organization Address [facility] Number [facility] [address] [phone] * (ABNORMAL) Glucose, Nova Meter (03/15/2025 8:00 PM EDT) POC-GLUCOSE 329(H) 70 - 110 mg/dL 03/15/2025 8:01 PM EDT [facility] Comment: In the event of poor peripheral blood flow, venous or arterial blood should be used due to the potential of erroneous results. Notified Nurse [facility] Pharm[facility] Informaticist [id number] 03/15/2025 8:01 PM EDT [facility] Blood WHOLE BLOOD / Unknown 03/15/2025 8:00 PM EDT 03/15/2025 8:01 PM EDT Narrative [facility] - 03/15/2025 8:01 PM EDT Pharmacy Informaticist ID is - [id number] Ivis Sequeira MD POINT OF CARE TEST ORDERABLES Fi nal Result Performing Organization Address [facility] Co de Phone Number [facility] [address] [place] [address], [facility] [phone] * (ABNORMAL) Glucose, Nova Meter (03/15/2025 11:29 AM EDT) POC-GLUCOSE 249(H) 70 - 110 mg/dL 03/15/2025 11:30 AM EDT [facility] Comment: In the event of poor peripheral blood flow, venous or arterial blood should be used due to the potential of erroneous results. Notified Nurse [facility] Pharm[facility] Informaticist [id number] 03/15/2025 11:30 AM EDT [facility] Blood WHOLE BLOOD / Unknown 03/15/2025 11:29 AM EDT 03/15/2025 11:[address] [facility] - 03/15/2025 11:30 AM EDT Pharmacy Informaticist ID is - [id number] Ivis Sequeira MD POINT OF CARE TEST ORDERABLES Fi nal Result [facility] [address] [phone] * Magnesium (03/15/2025 6:13 AM EDT) Magnesium 1.6 1.6 - 2.6 mg/dL 03/15/2025 10:53 AM EDT [facility] Blood Venipuncture / Unknown 03/15/2025 6:13 AM EDT 03/15/2025 6:[address] [facility] - 03/15/2025 10:53 AM EDT Specimen slightly hemolyzed Ivis Sequeira MD LAB BLOOD ORDERABLES Final Resul t [facility] [address] [phone] * (ABNORMAL) Basic Metabolic Panel (03/15/2025 6:13 AM EDT) Sodium 139 136 - 145 meq/L 03/15/2025 10:52 AM EDT [facility] Potassium 3.7 3.4 - 5.1 meq/L 03/15/2025 10:52 AM EDT [facility] CO2 20(L) 22 - 29 meq/L 03/15/2025 10:52 AM EDT [facility] Chloride 106 98 - 112 meq/L 03/15/2025 10:52 AM EDT [facility] Glucose 200(H) 82 - 115 mg/dL 03/15/2025 10:52 AM EDT [facility] BUN 27.9(H) 9.8 - 20.1 mg/dL 03/15/2025 10:52 AM EDT [facility] Creatinine 0.99 0.57 - 1.11 mg/dL 03/15/2025 10:52 AM EDT [facility] BUN/Creatinine 28(H) 8 - 20 03/15/2025 10:52 AM EDT [facility] Calcium 9.8 8.4 - 10.2 mg/dL 03/15/2025 10:52 AM EDT [facility] Anion Gap 17(H) 4 - 12 03/15/2025 10:52 AM EDT [facility] eGFR (mL/min/1.73m2) 65 >=60 mL/min/1.7 3m2 03/15/2025 10:52 AM EDT [facility] Osmolality Calc 288.6 mOsm/kg 10:52 AM EDT [facility] Blood Venipuncture / Unknown 03/15/2025 6:13 AM EDT 03/15/2025 6:28 AM EDT Narrative [facility] - 03/15/2025 10:52 AM EDT Specimen slightly hemolyzed us Ivis Sequeira MD LAB BLOOD ORDERABLES Final Resul t [facility] [address] [phone] * Lipid panel (03/15/2025 6:13 AM EDT) Triglycerides 100 <=149 mg/dL 03/15/2025 7:22 AM EDT [facility] Comment: Normal: < 150 mg/dL Borderline High: 150 to 199 mg/dL High: 200 to 499 mg/dL Very High: >/= 500 mg/dL Cholesterol 111 100 - 199 mg/dL 03/15/2025 7:22 AM EDT [facility] Comment: Child: Desirable: < 170 mg/dL Borderline: 170 to 199 mg/dL High: >/= 200 mg/dL Adult: Desirable: < 200 mg/dL Borderline: 200 to 239 mg/dL High: >/= 240 mg/dL HDL Cholesterol 43 See Comment mg/dL 03/15/2025 7:22 AM EDT [facility] Comment: Major risk factor for heart disease: < 40 mg/dL Negative risk factor for heart disease: >/= 60 mg/dL LDL Cholesterol, Calculated 48 0 - 100 mg/dL 03/15/2025 7:22 AM EDT [facility] Comment: Unable to calculate Optimal: < 100 mg/dL Near or above optimal: 100 to 129 mg/dL Borderline high: 130 to 159 mg/dL High: 160 to 189 mg/dL Very high: >/= 190 mg/dL Based on AHA/NCEP Guidelines LDl/HDL Ratio 1 0 - 4 03/15/2025 7:22 AM EDT [facility] Comment:Unable to calculate. Cholesterol/HDL ratio 2.6 0.0 - 5.0 mg/dL 03/15/2025 7:22 AM EDT [facility] VLDL Cholesterol 20 5 - 40 mg/dL 03/15/2025 7:22 AM EDT [facility] Comment:Unable to calculate Blood Venipuncture / Unknown 03/15/2025 6:13 AM EDT 03/15/2025 6:28 AM EDT Narrative [facility] - 03/15/2025 7:22 AM EDT Specimen slightly hemolyzed us Ivis Sequeira MD LAB BLOOD ORDERABLES Final Resul t [facility] [address] [place] [address], [facility] [phone] * (ABNORMAL) Glucose, Nova Meter (03/15/2025 5:35 AM EDT) POC-GLUCOSE 193(H) 70 - 110 mg/dL 03/15/2025 5:37 AM EDT [facility] Comment: In the event of poor peripheral blood flow, venous or arterial blood should be used due to the potential of erroneous results. Notified Nurse [facility] Pharm[facility] Informaticist [id number] 03/15/2025 5:37 AM EDT [facility] Blood WHOLE BLOOD / Unknown 03/15/2025 5:35 AM EDT 03/15/2025 5:37 AM EDT Narrative [facility] - 03/15/2025 5:37 AM EDT Pharmacy Informaticist ID is - [id number] Ivis Sequeira MD POINT OF CARE TEST ORDERABLES Fi nal Result Performing Organization Address [facility] de Phone Number [facility] [address] [phone] * (ABNORMAL) Glucose, Nova Meter (03/14/2025 7:16 PM EDT) POC-GLUCOSE 188(H) 70 - 110 mg/dL 03/14/2025 7:17 PM EDT [facility] Comment: In the event of poor peripheral blood flow, venous or arterial blood should be used due to the potential of erroneous results. Notified Nurse [facility] Pharm[facility] Informaticist [id number] 03/14/2025 7:17 PM EDT [facility] Blood WHOLE BLOOD / Unknown 03/14/2025 7:16 PM EDT 03/14/2025 7:17 PM EDT Narrative [facility] - 03/14/2025 7:17 PM EDT Pharmacy Informaticist ID is - [id number] Ivis Sequeira MD POINT OF CARE TEST ORDERABLES Fi nal Result Performing Organization Address [facility] Co de Phone Number [facility] [address] [place] [address], [facility] [phone] * (ABNORMAL) Glucose, Nova Meter (03/14/2025 4:54 PM EDT) POC-GLUCOSE 265(H) 70 - 110 mg/dL 03/14/2025 4:56 PM EDT [facility] Comment: In the event of poor peripheral blood flow, venous or arterial blood should be used due to the potential of erroneous results. Notified Nurse [facility] Pharm[facility] Informaticist [phone] 03/14/2025 4:56 PM EDT [facility] Blood WHOLE BLOOD / Unknown 03/14/2025 4:54 PM EDT 03/14/2025 4:55 PM EDT Narrative [facility] - 03/14/2025 4:56 PM EDT Pharmacy Informaticist ID is - [id number] us Ivis Sequeira MD POINT OF CARE TEST ORDERABLES Fi nal Result [facility] [address] [phone] * MRI BRAIN STEALTH W WO CONTRAST (03/14/2025 3:54 PM EDT) Anatomical Region Laterality Modality Magnetic Resonan ce (MRI) 03/14/2025 4:04 PM EDT Impressions 03/14/2025 4:13 PM EDT Atrophy and periventricular white matter change without acute process. Images reviewed, interpreted, and dictated by America Galeano MD Narrative 03/14/2025 4:13 PM EDT MRI OF THE BRAIN WITH AND WITHOUT CONTRAST HISTORY: Acute headache. COMPARISON: March 2014. PROCEDURE: Multiplanar MR imaging of the brain was performed in multiple MR sequences, precontrast and postcontrast administration. A Stealth protocol was utilized. FINDINGS: Limited images the proximal cord are unremarkable. The ventricles are enlarged. There is diffuse atrophy. There is moderate periventricular and deep white matter change likely related to small vessel disease. There is no extra-axial fluid or midline shift. There is no evidence of acute hemorrhage. Flow-voids are appropriate. Diffusion-weighted images demonstrate no evidence of acute CVA. Limited images of the paranasal sinuses are unremarkable. Postcontrast images demonstrate no abnormal enhancement. 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 There is encephalomalacia and a craniotomy defect in the left frontal lobe consistent with remote lesion resection. Procedure Note Danni Galeano MD - 03/14/2025 MRI OF THE BRAIN WITH AND WITHOUT CONTRAST HISTORY: Acute headache. COMPARISON: March 2014. PROCEDURE: Multiplanar MR imaging of the brain was performed in multiple MR sequences, precontrast and postcontrast administration. A Stealth protocol was utilized. FINDINGS: Limited images the proximal cord are unremarkable. The ventricles are enlarged. There is diffuse atrophy. There is moderate periventricular and deep white matter change likely related to small vessel disease. There is no extra-axial fluid or midline shift. There is no evidence of acute hemorrhage. Flow-voids are appropriate. Diffusion-weighted images demonstrate no evidence of acute CVA. Limited images of the paranasal sinuses are unremarkable. Postcontrast images demonstrate no abnormal enhancement. 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 There is encephalomalacia and a craniotomy defect in the left frontal lobe consistent with remote lesion resection. IMPRESSION: Atrophy and periventricular white matter change without acute process. Images reviewed, interpreted, and dictated by America Galeano MD Srinivasa Ann MD IMG MRI ORDERABLES Final Result * US CAROTID BLOOD FLOW BILATERAL (03/14/2025 12:46 PM EDT) Anatomical Region Laterality Modality Vascular, Carotid Vascular Ultra sound 03/14/2025 11:2 2 AM EDT Narrative 03/14/2025 1:19 PM EDT Vascular Carotid Procedure Demographics Patient Name RENITA BEATTY Age 60 Patient Number [id number] Gender Female Race Unknown Ethnicity Corporate ID [id number] Height 62 Date of 1965 Weight 121 Accession Number [id number] BSA 1.54 m^2 Room Number 308 BMI 22.13 kg/m^2 Referring IVIS SEQUEIRA MD Interpreting KRIS GAN MD Physician Physician Burner Shaft LORRAINE Davies Procedure Type of Study: Cerebral: Carotid, US CAROTID BLOOD FLOW BILATERAL. Impressions Summary ######################################### INDICATION: I65.23 Occlusion and stenosis of bilateral carotid arteries. . RIGHT: < 50% (non flow restricting) stenosis of the internal carotid artery. Normal antegrade vertebral flow. No evidence of subclavian steal. Area of interest noted in the right thyroid measuring 1.52cm x 1.60cm, flow noted within. LEFT: < 50% (non flow restricting) stenosis of the internal carotid artery. Normal antegrade vertebral flow. No evidence of subclavian steal. ######################################### Blood Pressure:Right arm 146/92 mmHg.Left arm 138/95 mmHg. Patient Status:Inpatient . Study Location:Portable. Technical Quality:Adequate visualization. Velocities are measured in cm/s ; Diameters are measured in mm Carotid Right Measurements + +------+-----+-----+---------+ + !Location !PSV !EDV !Angle!%Stenosis!Tortuosity! + +------+-----+-----+---------+ + !Prox CCA !51.71 !11.09! ! ! ! + +------+-----+-----+---------+ + !Mid CCA !73.47 !13.63! ! ! ! + +------+-----+-----+---------+ + !Dist CCA !58.24 !14.36! ! ! ! + +------+-----+-----+---------+ + !Prox ICA !87.44 !25.29! ! ! ! + +------+-----+-----+---------+ + !Dist ICA !79.67 !24.25! ! ! ! + +------+-----+-----+---------+ + !Prox ECA !81.89 ! ! ! ! ! + +------+-----+-----+---------+ + !Mid Vertebral !58.26 ! ! ! ! ! + +------+-----+-----+---------+ + !Mid Subclavian !118.42! ! ! ! ! + +------+-----+-----+---------+ + - There is antegrade vertebral flow noted on the right side. - Additional Measurements:ICAPSV/CCAPSV 1.5. Carotid Left Measurements + +------+-----+-----+---------+ + !Location !PSV !EDV !Angle!%Stenosis!Tortuosity! + +------+-----+-----+---------+ + !Prox CCA !67.8 !15.16! ! ! ! + +------+-----+-----+---------+ + !Mid CCA !76.08 !13.51! ! ! ! + +------+-----+-----+---------+ + !Dist CCA !52.88 !11.9 ! ! ! ! + +------+-----+-----+---------+ + !Prox ICA !55.06 !12.99! ! ! ! + +------+-----+-----+---------+ + !Dist ICA !89.4 !28.48! ! ! ! + +------+-----+-----+---------+ + !Prox ECA !346.92! ! ! ! ! + +------+-----+-----+---------+ + !Mid Vertebral !56.61 ! ! ! ! ! + +------+-----+-----+---------+ + !Mid Subclavian !98.84 ! ! ! ! ! + +------+-----+-----+---------+ + - There is antegrade vertebral flow noted on the left side. - Additional Measurements:ICAPSV/CCAPSV 1.04. Findings Right Findings Mild heterogenous hyperechoic smooth plaque in the entire CCA . Mild heterogenous hyperechoic smooth plaque in the ECA . Mild heterogenous hyperechoic irregular plaque in the proximal ICA . Left Findings Mild heterogenous hyperechoic smooth plaque in the subclavian artery . Mild heterogenous hyperechoic irregular plaque in the entire CCA . Moderate heterogenous hyperechoic irregular plaque in the ECA . Mild heterogenous hyperechoic irregular plaque in the proximal ICA . Signature Procedure Note Kris Gan MD - 03/14/2025 Vascular Carotid Procedure Demographics Patient Name RENITA BEATTY Age 60 Patient Number [id number] Gender Female Race Unknown Ethnicity Corporate ID [id number] Height 62 Date of 1965 Weight 121 Accession Number [id number] BSA 1.54 m^2 Room Number 308 BMI 22.13 kg/m^2 Referring IVIS SEQUEIRA MD Interpreting KRIS HANSON Physician Physician Burner Shaft LORRAINE Davies Procedure Type of Study: Cerebral: Carotid, US CAROTID BLOOD FLOW BILATERAL. Impressions Summary ######################################### INDICATION: I65.23 Occlusion and stenosis of bilateral carotid arteries.. RIGHT: < 50% (non flow restricting) stenosis of the internal carotid artery. Normal antegrade vertebral flow. No evidence of subclavian steal. Area of interest noted in the right thyroid measuring 1.52cm x 1.60cm, flow noted within. LEFT: < 50% (non flow restricting) stenosis of the internal carotid artery. Normal antegrade vertebral flow. No evidence of subclavian steal. ######################################### Blood Pressure:Right arm 146/92 mmHg.Left arm 138/95 mmHg. Patient Status:Inpatient . Study Location:Portable. Technical Quality:Adequate visualization. Velocities are measured in cm/s ; Diameters are measured in mm Carotid Right Measurements + +------+-----+-----+---------+ + !Location !PSV !EDV!Angle!%Stenosis!Tortuosity! + +------+-----+-----+---------+ + !Prox CCA !51.71 !11.09! ! !! + +------+-----+-----+---------+ + !Mid CCA !73.47 !13.63! ! !! + +------+-----+-----+---------+ + !Dist CCA !58.24 !14.36! ! !! + +------+-----+-----+---------+ + !Prox ICA !87.44 !25.29! ! !! + +------+-----+-----+---------+ + !Dist ICA !79.67 !24.25! ! !! + +------+-----+-----+---------+ + !Prox ECA !81.89 ! ! ! !! + +------+-----+-----+---------+ + !Mid Vertebral !58.26 ! ! ! !! + +------+-----+-----+---------+ + !Mid Subclavian !118.42! ! ! !! + +------+-----+-----+---------+ + - There is antegrade vertebral flow noted on the right side. - Additional Measurements:ICAPSV/CCAPSV 1.5. Carotid Left Measurements + +------+-----+-----+---------+ + !Location !PSV !EDV!Angle!%Stenosis!Tortuosity! + +------+-----+-----+---------+ + !Prox CCA !67.8 !15.16! ! !! + +------+-----+-----+---------+ + !Mid CCA !76.08 !13.51! ! !! + +------+-----+-----+---------+ + !Dist CCA !52.88 !11.9 ! ! !! + +------+-----+-----+---------+ + !Prox ICA !55.06 !12.99! ! !! + +------+-----+-----+---------+ + !Dist ICA !89.4 !28.48! ! !! + +------+-----+-----+---------+ + !Prox ECA !346.92! ! ! !! + +------+-----+-----+---------+ + !Mid Vertebral !56.61 ! ! ! !! + +------+-----+-----+---------+ + !Mid Subclavian !98.84 ! ! ! !! + +------+-----+-----+---------+ + - There is antegrade vertebral flow noted on the left side. - Additional Measurements:ICAPSV/CCAPSV 1.04. Findings Right Findings Mild heterogenous hyperechoic smooth plaque in the entire CCA . Mild heterogenous hyperechoic smooth plaque in the ECA . Mild heterogenous hyperechoic irregular plaque in the proximal ICA . Left Findings Mild heterogenous hyperechoic smooth plaque in the subclavian artery . Mild heterogenous hyperechoic irregular plaque in the entire CCA . Moderate heterogenous hyperechoic irregular plaque in the ECA . Mild heterogenous hyperechoic irregular plaque in the proximal ICA . Signature Ivis Sequeira MD CV VASCULAR ORDERABLES Final Res ult * (ABNORMAL) Glucose, Nova Meter (03/14/2025 11:33 AM EDT) [facility] POC-GLUCOSE 124(H) 70 - 110 mg/dL 03/14/2025 11:34 AM EDT [facility] Comment: In the event of poor peripheral blood flow, venous or arterial blood should be used due to the potential of erroneous results. Notified Nurse [facility] Pharm[facility] Informaticist [phone] 03/14/2025 11:34 AM EDT [facility] Blood WHOLE BLOOD / Unknown 03/14/2025 11:33 AM EDT 03/14/2025 11:34 AM EDT Narrative [facility] - 03/14/2025 11:34 AM EDT Pharmacy Informaticist ID is - [id number] Ivis Sequeira MD POINT OF CARE TEST ORDERABLES Fi nal Result [facility] [address] [phone] * (ABNORMAL) Magnesium (03/14/2025 10:49 AM EDT) Magnesium 1.5(L) 1.6 - 2.6 mg/dL 03/14/2025 11:52 AM EDT [facility] Blood Venipuncture / Unknown 03/14/2025 10:49 AM EDT 03/14/2025 11:27 AM EDT us Ivis Sequeira MD LAB BLOOD ORDERABLES Final Resul t [facility] [address] [phone] * (ABNORMAL) Comprehensive metabolic panel (03/14/2025 10:49 AM EDT) Sodium 144 136 - 145 meq/L 03/14/2025 11:52 AM EDT [facility] Potassium 3.3(L) 3.4 - 5.1 meq/L 03/14/2025 11:52 AM EDT [facility] Chloride 106 98 - 112 meq/L 03/14/2025 11:52 AM EDT [facility] CO2 21(L) 22 - 29 meq/L 03/14/2025 11:52 AM EDT [facility] Calcium 9.8 8.4 - 10.2 mg/dL 03/14/2025 11:52 AM EDT [facility] Glucose 114 82 - 115 mg/dL 03/14/2025 11:52 AM EDT [facility] BUN 21.3(H) 9.8 - 20.1 mg/dL 03/14/2025 11:52 AM EDT [facility] Creatinine 0.83 0.57 - 1.11 mg/dL 03/14/2025 11:52 AM EDT [facility] BUN/Creatinine 26(H) 8 - 20 03/14/2025 11:52 AM EDT [facility] eGFR (mL/min/1.73m2) 80 >=60 mL/min/1. 73m2 03/14/2025 11:52 AM EDT [facility] Albumin 3.4(L) 3.5 - 5.0 g/dL 03/14/2025 11:52 AM EDT [facility] Alkaline Phosphatase 99 40 - 150 U/L 03/14/2025 11:52 AM EDT [facility] ALT 24 <=34 U/L 03/14/2025 11:52 AM EDT [facility] Comment: ALT2 reagent used for testing does not contain P5P supplementation and therefore may miss ALT elevations in patients with B6 deficiency. This population may be as high as 10% in the [place], with risk factors including malabsorption, drug interactions, and alcoholic hepatitis. AST 34 11 - 34 U/L 03/14/2025 11:52 AM EDT [facility] Comment: AST2 reagent used for testing does not contain P5P supplementation and therefore may miss AST elevations in patients with B6 deficiency. This population may be as high as 10% in the [place], with risk factors including malabsorption, drug interactions, and alcoholic hepatitis. Total Bilirubin 0.6 0.2 - 1.2 mg/dL 03/14/2025 11:52 AM EDT [facility] Protein, Total 6.7 6.4 - 8.3 g/dL 03/14/2025 11:52 AM EDT [facility] Globulin 3.3 2.5 - 4.1 g/dL 03/14/2025 11:52 AM EDT [facility] Anion Gap 20(H) 4 - 12 03/14/2025 11:52 AM EDT [facility] A/G Ratio 1.0 0.7 - 1.9 03/14/2025 11:52 AM EDT [facility] Osmolality Calc 290.8 mOsm/kg 11:52 AM EDT [facility] Blood Venipuncture / Unknown 03/14/2025 10:49 AM EDT 03/14/2025 11:27 AM EDT us Ivis Sequeira MD LAB BLOOD ORDERABLES Final Resul t [facility] [address] [phone] * (ABNORMAL) CBC with automated diff (03/14/2025 10:49 AM EDT) WBC 8.3 4.0 - 10.0 K/ L 03/14/2025 11:31 AM EDT [facility] RBC 4.98 3.93 - 5.22 M/ L 03/14/2025 11:31 AM EDT [facility] Hemoglobin 15.8(H) 11.2 - 15.7 GM/DL 03/14/2025 11:31 AM EDT [facility] Hematocrit 46.1(H) 34.1 - 44.9 % 03/14/2025 11:31 AM EDT [facility] MCV 93 79 - 95 fL 03/14/2025 11:31 AM EDT [facility] MCH 31.7 25.6 - 32.2 pg 03/14/2025 11:31 AM EDT [facility] MCHC 34.3 32.2 - 35.5 GM/DL 03/14/2025 11:31 AM EDT [facility] RDW 12.3 11.7 - 14.4 % 03/14/2025 11:31 AM EDT [facility] Platelets 218 140 - 375 K/CU MM 03/14/2025 11:31 AM EDT [facility] MPV 9.3(L) 9.4 - 12.3 fL 03/14/2025 11:31 AM EDT [facility] % Neutros 68 34 - 71 % 03/14/2025 11:31 AM EDT [facility] % Lymphs 25 19 - 52 % 03/14/2025 11:31 AM EDT [facility] % Monos 6 5 - 13 % 03/14/2025 11:31 AM EDT [facility] % Eos 1 1 - 6 % 03/14/2025 11:31 AM EDT [facility] % Baso 1 0 - 1 % 03/14/2025 11:31 AM EDT [facility] NRBC Absolute <0.01 0 - 0.012 K/ul 03/14/2025 11:31 AM EDT [facility] # Neutros 5.58 1.56 - 6.13 K/ L 03/14/2025 11:31 AM EDT [facility] # Lymphs 2.04 1.18 - 3.74 K/ L 03/14/2025 11:31 AM EDT [facility] # Monos 0.52 0.24 - 0.86 K/ L 03/14/2025 11:31 AM EDT [facility] # Eos 0.04 0.04 - 0.36 K/ L 03/14/2025 11:31 AM EDT [facility] # Baso 0.05 0.01 - 0.08 K/ L 03/14/2025 11:31 AM EDT [facility] Immature Granulocytes-Re lative 0.40 0.01 - 0.43 % 03/14/2025 11:31 AM EDT [facility] # IG 0.03 0.00 - 0.03 K/uL 03/14/2025 11:31 AM EDT [facility] Blood Venipuncture / Unknown 03/14/2025 10:49 AM EDT 03/14/2025 11:27 AM EDT Narrative [facility] - 03/14/2025 11:31 AM EDT When CBC w/ Auto Diff is ordered the lab will add a Manual Differential as a quality check at no additional charge if: Lymphocytes greater than seventy five percent with normal or increased WBC Monocytes greater than Fifteen percent Basophil greater than four percent Bands >10% or several immature myeloids are seen on scan Blast? Flag noted Atypical Lymph flag noted us Ivis Sequeira MD LAB BLOOD ORDERABLES Final Resul t [facility] [address] [place] [address], [facility] [phone] * (ABNORMAL) Glucose, Nova Meter (03/14/2025 4:52 AM EDT) POC-GLUCOSE 133(H) 70 - 110 mg/dL 03/14/2025 4:53 AM EDT [facility] Comment: In the event of poor peripheral blood flow, venous or arterial blood should be used due to the potential of erroneous results. Notified Nurse [facility] Pharm[facility] Informaticist [phone] 03/14/2025 4:53 AM EDT [facility] Blood WHOLE BLOOD / Unknown 03/14/2025 4:52 AM EDT 03/14/2025 4:53 AM EDT Narrative [facility] - 03/14/2025 4:53 AM EDT Pharmacy Informaticist ID is - [id number] Rupert Meek PA-C POINT OF CARE TEST ORDERABLE S Final Result [facility] [address] [phone] documented in this encounter Visit Diagnoses Diagnosis Internal carotid artery stenosis- Primary Occlusion and stenosis of carotid artery without mention of cerebral infarction Carotid stenosis, right Occlusion and stenosis of carotid artery without mention of cerebral infarction documented in this encounter Admitting Diagnoses Diagnosis Internal carotid artery stenosis Occlusion and stenosis of carotid artery without mention of cerebral infarction Carotid stenosis, right Occlusion and stenosis of carotid artery without mention of cerebral infarction documented in this encounter Administered Medications Inactive Administered Medications - up to 3 most recent administrations Medication Order MAR Action Action Date Dose Rate Site acetaminophen (TYLENOL) tablet 1,000 mg 1,000 mg Every 6 hours PRN, oral, mild pain (1-3), headache, fever greater than or equal to 38C, Starting on Fri03/14/25 at 0204, 1st line analgesic aspirin EC tablet 325 mg 325 mg Daily, oral, First dose on Fri03/14/25 at 0900, * DO NOT CRUSH THIS DOSAGE FORM * Given 03/18/2025 9:50 AM EDT 325 mg Given 03/17/2025 9:25 AM EDT 325 mg Given 03/16/2025 9:39 AM EDT 325 mg atorvastatin (LIPITOR) tablet 80 mg 80 mg Every Night, oral, First dose on Fri03/14/25 at 2100 Given 03/17/2025 9:27 PM EDT 80 mg Given 03/16/2025 9:53 PM EDT 80 mg Given 03/15/2025 9:08 PM EDT 80 mg jcpuyibquc-tjqfkbfxuxape-yvwydiop (FIORICET,ESGIC) tablet 1 tablet Every 4 hours PRN, oral, headache, Starting on Fri03/14/25 at 1903, Recommended maximum dose of acetaminophen is 4000 mg from all sources in 24 hours Given 03/16/2025 1:06 AM EDT 1 ta blet Given 03/14/2025 8:30 PM EDT 1 tablet clopidogreL (PLAVIX) tablet 75 mg 75 mg Daily, oral, First dose on Fri03/18/25 at 1400, Look-alike/Sound-alike medication dapagliflozin propanediol (FARXIGA) tablet 10 mg 10 mg Daily, oral, First dose on Fri03/14/25 at 0900, Is the patient scheduled for surgery in the next 3 days? No, On hold since Fri03/14/2025 at 0234 until manually unheld desvenlafaxine (PRISTIQ) ER 24 hr tablet 100 mg 100 mg Daily, oral, First dose on Fri03/14/25 at 0900, * DO NOT CRUSH THIS DOSAGE FORM * Given 03/18/2025 9:51 AM EDT 1 00 mg Given 03/17/2025 9:24 AM EDT 100 mg Given 03/16/2025 9:38 AM EDT 100 mg dextrose 50% (D50W) injection 25 g 25 g Every 15 min PRN, intravenous, low blood glucose (specify value in prn comments), less than 41 mg/dL or 41-69 mg/dL and unable to take PO, Starting on Fri03/14/25 at 0228, Repeat blood glucose every 15 minutes until blood glucose greater than 70 mg/dL. Call Provider if not resolved after 2 treatments Repeat BS in 1 hour, retime for 1 hour after blood sugar greater than 70 mg/dL If less than 41: Repeat Finger stick within 5 minutes with same machine Send serum glucose level: Do not wait on lab to treat gabapentin (NEURONTIN) capsule 800 mg 800 mg 3 times daily, oral, First dose on Fri03/14/25 at 0900 Given 03/18/2025 9:44 AM EDT 800 mg Given 03/17/2025 9:27 PM EDT 800 mg Given 03/17/2025 3:39 PM EDT 800 mg gadoteridoL (PROHANCE) injection 5.31 mmol 5.31 mmol IMG once as needed (0.1 mmol/kg 53.1 kg), intravenous, contrast, Starting on Fri03/14/25 at 1526, For 1 dose, Intra-op Given 03/14/2025 3:54 PM EDT 1 mmol glucagon injection 1 mg 1 mg Every 15 min PRN, intraMUSCULAR, low blood glucose (specify value in prn comments), For Patients without IV access and blood glucose 41-69 mg/dL AND unable to take PO OR Less than 41 mg/dL, Starting on Fri03/14/25 at 0228, Caution: glucagon . Roll patient on their side when administering to prevent aspiration. Call Provider if not resolved after 2 treatments Repeat BS in 1 hour, retime for 1 hour after blood sugar greater than 70 mg/dL glucose chew tab 16 g 16 g Every 15 min PRN, oral, low blood glucose (specify value in prn comments), 41-69 mg/dL, Starting on Fri03/14/25 at 0228, For Patients who can take oral AND blood glucose 41-69 mg/dL Give 4 Tabs every 15 minutes. Recheck blood glucose every 15 minutes and repeat 15 grams of carbohydrates until blood glucose is above 70 mg/dL. Give Meal or Snack Call Provider if not resolved after 3 treatments Repeat BS in 1 hour, retime for 1 hour after blood sugar greater than 70 mg/dL hydrALAZINE (APRESOLINE) injection 10 mg 10 mg Every 6 hours PRN, intravenous, hypertension (sbp greater than 160), Starting on Fri03/14/25 at 0202, Hold if SBP < 100 mmHg, DBP < 50 mmHg, or patient is on pressor. Look-alike/Sound-alike medication Given 03/14/2025 5:40 AM EDT 10 mg HYDROcodone-acetaminophen (NORCO) 5-325 mg per tablet 1 tablet 1 tablet Every 6 hours PRN, oral, moderate pain (4-6), Starting on Fri03/14/25 at 0204, 1st line analgesic Given 03/16/2025 3:06 AM EDT 1 tablet Given 03/15/2025 9:10 PM EDT 1 tablet Given 03/15/2025 9:46 AM EDT 1 tablet hydrOXYzine (ATARAX) tablet 25 mg 25 mg Every 8 hours PRN, oral, itching, Starting on Fri03/14/25 at 0247, Look-alike/Sound-alike medication Given 03/14/2025 8:29 PM EDT 25 mg insulin 70/30 NPH-regular human (HumuLIN 70/30, NovoLIN 70/30) injection 5 Units 5 Units 2 times daily before meals, subcutaneous, First dose (after last modification) on 03/14/25 at 1630, *ROTATE VIAL TO MIX THOROUGHLY* Given 03/17/2025 6:32 AM EDT 5 Units Abdom inal Tissue Given 03/16/2025 4:56 PM EDT 5 Units Le ft Arm Given 03/16/2025 6:42 AM EDT 5 Units Ab dominal Tissue insulin 70/30 NPH-regular human (HumuLIN 70/30, NovoLIN 70/30) injection 8 Units 8 Units 2 times daily before meals, subcutaneous, First dose (after last modification) on Elizabeth 03/17/25 at 1630, *ROTATE VIAL TO MIX THOROUGHLY* Patient specific multi-dose vial. Given 03/18/2025 7:07 AM EDT 8 Units Abdominal Tissue insulin lispro (HUMALOG, ADMELOG) injection 0-12 Units 0-12 Units 4 times daily (before meals and nightly), subcutaneous, First dose on Elizabeth 03/17/25 at 1330, If Blood Sugar is less than 180 beteween [id number], DO NOT give corrective insulin unless otherwise ordered. Corrective Scale B 0 units for fingerstick blood glucose LESS than 140 mg/dL 2 units subcutaneously once for fingerstick blood glucose [140] - [180] mg/dL 4 units subcutaneously once for fingerstick blood glucose [181] - [220] mg/dL 6 units subcutaneously once for fingerstick blood glucose [221] - [260] mg/dL 8 units subcutaneously once for fingerstick blood glucose [261] - [300] mg/dL 10 units subcutaneously once for fingerstick blood glucose [301] - [350] mg/dL 12 units subcutaneously once for fingerstick blood glucose [351] - [400] mg/dL Notify provider of glucose levels LESS than [70] and GREATER than [400] Given 03/18/2025 1:04 PM EDT 10 Units Abdominal Tissue Given 03/18/2025 7:06 AM EDT 10 Units Ab dominal Tissue Given 03/17/2025 10:32 PM EDT 6 Units A bdominal Tissue insulin regular (HUMULIN R,NOVOLIN R) injection 0-12 Units Every 6 hours scheduled, subcutaneous, First dose on Fri03/14/25 at 0600, Corrective Scale B 0 units for fingerstick blood glucose LESS than 140 mg/dL 2 units subcutaneously once for fingerstick blood glucose [140] - [180] mg/dL 4 units subcutaneously once for fingerstick blood glucose [181] - [220] mg/dL 6 units subcutaneously once for fingerstick blood glucose [221] - [260] mg/dL 8 units subcutaneously once for fingerstick blood glucose [261] - [300] mg/dL 10 units subcutaneously once for fingerstick blood glucose [301] - [350] mg/dL 12 units subcutaneously once for fingerstick blood glucose [351] - [400] mg/dL Notify provider of glucose levels LESS than [70] and GREATER than [400] Given 03/17/2025 6:32 AM EDT 4 Units Abdominal Tissue Given 03/17/2025 12:48 AM EDT 6 Units A bdominal Tissue Given 03/16/2025 6:43 AM EDT 4 Units Ab dominal Tissue levETIRAcetam (KEPPRA) tablet 500 mg 500 mg 2 times daily, oral, First dose on Fri03/14/25 at 0900, Look-alike/Sound-alike medication Given 03/18/2025 9:44 AM EDT 500 mg Given 03/17/2025 9:27 PM EDT 500 mg Given 03/17/2025 8:49 AM EDT 500 mg lisinopriL (ZESTRIL) tablet 10 mg 10 mg Daily, oral, First dose on Fri03/14/25 at 1100, Antihypertensive - Check BP - Check Pulse, On hold since Elizabeth 03/17/2025 at 0756 until manually unheld Given 03/16/2025 9:38 AM EDT 10 mg Given 03/15/2025 8:45 AM EDT 10 mg Given 03/14/2025 3:00 PM EDT 10 mg magnesium sulfate IVPB 2 g in sterile water 50 mL (premix) at 25 mL/hr, Administer over 120 Minutes, intravenous, Daily as needed, for magnesium level 1.3 to 1.7 mg/dL, Starting on Fri03/14/25 at 0202, If magnesium is replaced per protocol order, recheck 1 hour after replacement and the next morning. magnesium sulfate IVPB 2 g in sterile water 50 mL (premix) at 25 mL/hr, Administer over 120 Minutes, intravenous, 2 times daily PRN, for magnesium level less than 1.3 mg/dL, Starting on Fri03/14/25 at 0202, Total dose of 4 g for each low magnesium result. If magnesium is replaced per protocol order, recheck 1 hour after replacement and the next morning. melatonin tablet 3 mg 3 mg Every Night PRN, oral, insomnia, Starting on Fri03/14/25 at 0202 Given 03/16/2025 9:53 PM EDT 3 mg Given 03/16/2025 1:06 AM EDT 3 mg Given 03/14/2025 8:30 PM EDT 3 mg morphine injection 2 mg 2 mg Every 6 hours PRN, intravenous, severe pain (7-10), Starting on Fri03/14/25 at 0202, 3rd line analgesic. Give only if inadequate response (less than 50% reduction in pain score) 60 minutes after administration of 2nd line agent. May give in addition to 1st + 2nd line analgesics (+ adjuvants if ordered) naloxone (NARCAN) injection 0.2 mg 0.2 mg Every 2 min PRN, intravenous, opioid reversal, respiratory depression,, Starting on Fri03/14/25 at 0202, Give for respiratory rate less than 10 breaths/min or if patient is difficult to arouse. Max dose = 10mg. Call provider. nicotine (NICODERM CQ) 14 mg/24 hr patch 1 patch 1 patch Daily, transdermal, Administer over 24 Hours, First dose on Fri03/17/25 at 1730 Patch Applied 03/18/2025 9:45 AM EDT 1 patch Left Arm Patch Applied 03/17/2025 5:30 PM EDT 1 patch Right Arm NIFEdipine (PROCARDIA-XL) 24 hr tablet 30 mg 30 mg Daily, oral, First dose on Fri03/14/25 at 0900, Do Not Crush or Chew Antihypertensive - Check BP - Check Pulse * DO NOT CRUSH THIS DOSAGE FORM * Given 03/18/2025 9:44 AM EDT 30 mg Given 03/17/2025 8:49 AM EDT 30 mg Given 03/16/2025 9:38 AM EDT 30 mg ondansetron (ZOFRAN) injection 4 mg 4 mg Every 8 hours PRN, intravenous, nausea, vomiting, Starting on Fri03/14/25 at 0202, Give IV if patient is unable to take orally. 1st line If inadequate response within 60 minutes, proceed to next-line agent for same PRN reason or contact provider if no further options ordered. For IV push, give over 2 - 5 minutes. ondansetron (ZOFRAN-ODT) disintegrating tablet 4 mg 4 mg Every 8 hours PRN, oral, nausea, vomiting, Starting on Fri03/14/25 at 0202, 1st line. If inadequate response within 60 minutes, proceed to next-line agent for same PRN reason or contact provider if no further options ordered. pantoprazole (PROTONIX) EC tablet 40 mg 40 mg Daily, oral, First dose on Fri03/14/25 at 0900, * DO NOT CRUSH THIS DOSAGE FORM * Given 03/18/2025 9:44 AM EDT 4 0 mg Given 03/17/2025 8:49 AM EDT 40 mg Given 03/16/2025 9:38 AM EDT 40 mg potassium chloride (KLOR-CON) ER tablet 40 mEq 40 mEq 4 times daily PRN, oral, for potassium less than or EQUAL to 3.4 mmol/L, Starting on Fri03/14/25 at 0202, Do not crush KCl tablets. If potassium is replaced per protocol order, recheck potassium 2 hour after replacement and the next morning. potassium chloride IVPB 10 mEq in 100 mL sterile water (premix) 10 mEq Every hour PRN, intravenous, Administer over 60 Minutes, for potassium less than or equal to 3.4 mmol/L, Starting on Fri03/14/25 at 0202, Total Dose 40 mEq, use only if unable to administer PO. Max Rate 10mEq/hr. If potassium is replaced per protocol order, recheck 1 hour after replacement and the next morning. sodium chloride flush 10 mL 10 mL As needed, intravenous, line care, Starting on Fri03/14/25 at 0202, Every 8 hours and PRN to flush tiZANidine (ZANAFLEX) tablet 4 mg 4 mg 3 times daily PRN, oral, muscle spasms, Starting on Fri03/14/25 at 0248 Given 03/14/2025 8:30 PM EDT 4 mg traZODone (DESYREL) tablet 150 mg 150 mg Every Night, oral, First dose on Fri03/14/25 at 2100 Given 03/17/2025 9:27 PM EDT 150 mg Given 03/16/2025 9:53 PM EDT 150 mg Given 03/15/2025 9:08 PM EDT 150 mg valbenazine cap 80 mg PATIENT'S OWN MEDICATION SUPPLY 80 mg Daily, oral, First dose on Fri03/14/25 at 0900, *NON-FORMULARY MEDICATION* PATIENT'S OWN MEDICATION SUPPLY* documented in this encounter Active and Recently Administered Medications Times are shown in EDT. Scheduled Medication Order 03/16/2025 03/17/2025 03/18/2025 aspirin EC tablet 325 mg 325 mg Daily, oral, First dose on Fri03/14/25 at 0900, * DO NOT CRUSH THIS DOSAGE FORM * 0939 (Given - Provider: Ami Dangelo) 0925 (Given - Provider: Pino Rojas RN) 0950 (Given - Provider: Abi Stauffer RN) atorvastatin (LIPITOR) tablet 80 mg 80 mg Every Night, oral, First dose on Fri03/14/25 at 2100 2153 (Given - Provider: David Balbuena RN) 2126 (Given - Provider: Italia Barrera RN) clopidogreL (PLAVIX) tablet 75 mg 75 mg Daily, oral, First dose on Fri03/18/25 at 1400, Look-alike/Sound-alike medication dapagliflozin propanediol (FARXIGA) tablet 10 mg 10 mg Daily, oral, First dose on Fri03/14/25 at 0900, Is the patient scheduled for surgery in the next 3 days? No, On hold since Fri03/14/2025 at 0234 until manually unheld 0900 (Not Given - Provider: Ami Dangelo - Reason: Other (with Comment) - Comment: auto held) 0900 (Not Given - Provider: Abi Stauffer RN - Reason: Per MD Order) 0900 (Not Given - Provider: Abi Stauffer RN - Reason: Per MD Order)1447 (Unheld by provider - Provider: Automatic Discharge Provider) desvenlafaxine (PRISTIQ) ER 24 hr tablet 100 mg 100 mg Daily, oral, First dose on Fri03/14/25 at 0900, * DO NOT CRUSH THIS DOSAGE FORM * 0938 (Given - Provider: Ami Dangelo) 0924 (Given - Provider: Pino Rojas, RN) 0951 (Given - Provider: Abi Stauffer, SARAHY) gabapentin (NEURONTIN) capsule 800 mg 800 mg 3 times daily, oral, First dose on Fri03/14/25 at 0900 0938 (Given - Provider: Ami Dangelo)1655 (Given - Provider: Ami Dangelo)2153 (Given - Provider: David Balbuena, SARAHY) 0849 (Given - Provider: Pino Rojas, SARAHY)1539 (Given - Provider: Pino Rojas, RN)2127 (Given - Provider: Italia Barrera RN) 0944 (Given - Provider: Abi Stauffer, SARAHY) insulin 70/30 NPH-regular human (HumuLIN 70/30, NovoLIN 70/30) injection 5 Units (CANCELED) 5 Units 2 times daily before meals, subcutaneous, First dose (after last modification) on Fri03/14/25 at 1630, *ROTATE VIAL TO MIX THOROUGHLY* 0642 (Given - Provider: David Balbuena RN)1656 (Given - Provider: Ami Dangelo) 0632 (Given - Provider: David Balbuena RN) insulin 70/30 NPH-regular human (HumuLIN 70/30, NovoLIN 70/30) injection 8 Units 8 Units 2 times daily before meals, subcutaneous, First dose (after last modification) on Fri03/17/25 at 1630, *ROTATE VIAL TO MIX THOROUGHLY* Patient specific multi-dose vial. 0707 (Given - Provider: Italia Barrera, SARAHY)1147 (Not Given - Provider: Abi Stauffer, SARAHY - Reason: Other (with Comment) - Comment: not charted by prior RN) insulin lispro (HUMALOG, ADMELOG) injection 0-12 Units 0-12 Units 4 times daily (before meals and nightly), subcutaneous, First dose on Fri03/17/25 at 1330, If Blood Sugar is less than 180 beteween [id number], DO NOT give corrective insulin unless otherwise ordered. Corrective Scale B 0 units for fingerstick blood glucose LESS than 140 mg/dL 2 units subcutaneously once for fingerstick blood glucose [140] - [180] mg/dL 4 units subcutaneously once for fingerstick blood glucose [181] - [220] mg/dL 6 units subcutaneously once for fingerstick blood glucose [221] - [260] mg/dL 8 units subcutaneously once for fingerstick blood glucose [261] - [300] mg/dL 10 units subcutaneously once for fingerstick blood glucose [301] - [350] mg/dL 12 units subcutaneously once for fingerstick blood glucose [351] - [400] mg/dL Notify provider of glucose levels LESS than [70] and GREATER than [400] 1312 (Given - Provider: Pino Rojas RN)1824 (Given - Provider: Pino Rojas RN)2232 (Given - Provider: Italia Barrera, SARAHY) 0706 (Given - Provider: Italia Barrera RN)1304 (Given - Provider: Denise Teran RN) insulin regular (HUMULIN R,NOVOLIN R) injection (CANCELED) 0-12 Units Every 6 hours scheduled, subcutaneous, First dose on Fri03/14/25 at 0600, Corrective Scale B 0 units for fingerstick blood glucose LESS than 140 mg/dL 2 units subcutaneously once for fingerstick blood glucose [140] - [180] mg/dL 4 units subcutaneously once for fingerstick blood glucose [181] - [220] mg/dL 6 units subcutaneously once for fingerstick blood glucose [221] - [260] mg/dL 8 units subcutaneously once for fingerstick blood glucose [261] - [300] mg/dL 10 units subcutaneously once for fingerstick blood glucose [301] - [350] mg/dL 12 units subcutaneously once for fingerstick blood glucose [351] - [400] mg/dL Notify provider of glucose levels LESS than [70] and GREATER than [400] 0118 (Not Given - Provider: David Balbuena RN - Reason: Order parameters not met)0643 (Given - Provider: David Balbuena RN)1414 (Not Given - Provider: Ami Dangelo - Reason: Patient/family refused)1817 (Not Given - Provider: Ami Dangelo - Reason: Patient/family refused)2336 (Not Given - Provider: David Balbuena RN - Reason: Other (with Comment)) 0048 (Given - Provider: David Balbuena RN)0632 (Given - Provider: David Balbuena RN) 1146 (Not Given - Provider: Abi Stauffer RN - Reason: Per MD Order) levETIRAcetam (KEPPRA) tablet 500 mg 500 mg 2 times daily, oral, First dose on Fri03/14/25 at 0900, Look-alike/Sound-alike medication 0938 (Given - Provider: Ami Dangelo)2153 (Given - Provider: David Balbuena RN) 0849 (Given - Provider: Pino Rojas RN)2127 (Given - Provider: Italia Barrera RN) 0944 (Given - Provider: Abi Stauffer RN) lisinopriL (ZESTRIL) tablet 10 mg 10 mg Daily, oral, First dose on Fri03/14/25 at 1100, Antihypertensive - Check BP - Check Pulse, On hold since Fri03/17/2025 at 0756 until manually unheld 0938 (Given - Provider: Ami Dangelo) 0756 (Held by provider - Provider: Ivis Sequeira MD)0900 (Not Given - Provider: Abi Stauffer RN - Reason: Per MD Order) 0900 (Not Given - Provider: Abi Stauffer RN - Reason: Per MD Order)1447 (Unheld by provider - Provider: Automatic Discharge Provider) nicotine (NICODERM CQ) 14 mg/24 hr patch 1 patch 1 patch Daily, transdermal, Administer over 24 Hours, First dose on Fri03/17/25 at 1730 1730 (Patch Applied - Provider: Pino Rojas RN) 0944 (Patch Removed - Provider: Abi Stauffer RN)0945 (Patch Applied - Provider: Abi Stauffer RN)1356 (Due: Patch Removed - Provider: Automatic Discharge Provider - Comment: Time automatically adjusted from order being discontinued) NIFEdipine (PROCARDIA-XL) 24 hr tablet 30 mg 30 mg Daily, oral, First dose on Fri03/14/25 at 0900, Do Not Crush or Chew Antihypertensive - Check BP - Check Pulse * DO NOT CRUSH THIS DOSAGE FORM * 0938 (Given - Provider: Ami Dangelo) 0849 (Given - Provider: Pino Rojas RN) 0944 (Given - Provider: Abi Stauffer, SARAHY) pantoprazole (PROTONIX) EC tablet 40 mg 40 mg Daily, oral, First dose on Fri03/14/25 at 0900, * DO NOT CRUSH THIS DOSAGE FORM * 0938 (Given - Provider: Ami Dangelo) 0849 (Given - Provider: Pino Rojas RN) 0944 (Given - Provider: Abi Stauffer, SARAHY) traZODone (DESYREL) tablet 150 mg 150 mg Every Night, oral, First dose on Fri03/14/25 at 2100 2153 (Given - Provider: David Balbuena RN) 2127 (Given - Provider: Italia Barrera RN) valbenazine cap 80 mg PATIENT'S OWN MEDICATION SUPPLY 80 mg Daily, oral, First dose on Fri03/14/25 at 0900, *NON-FORMULARY MEDICATION* PATIENT'S OWN MEDICATION SUPPLY* 0943 (Not Given - Provider: Ami Dangelo - Reason: Other (with Comment) - Comment: patient supply) 1025 (Not Given - Provider: Pino Rojas RN - Reason: Medication/ Dose Unavailable) 0949 (Not Given - Provider: Abi Stauffer RN - Reason: Medication/ Dose Unavailable) PRN Medication Order 03/16/2025 03/17/2025 03/18/2025 acetaminophen (TYLENOL) tablet 1,000 mg 1,000 mg Every 6 hours PRN, oral, mild pain (1-3), headache, fever greater than or equal to 38C, Starting on Fri03/14/25 at 0204, 1st line analgesic onuhotdkxh-sgzhdysyshids-pmtpnusf (FIORICET,ESGIC) tablet 1 tablet Every 4 hours PRN, oral, headache, Starting on Fri03/14/25 at 1903, Recommended maximum dose of acetaminophen is 4000 mg from all sources in 24 hours 0106 (Given - Provider: David Balbuena RN) dextrose 50% (D50W) injection 25 g 25 g Every 15 min PRN, intravenous, low blood glucose (specify value in prn comments), less than 41 mg/dL or 41-69 mg/dL and unable to take PO, Starting on Fri03/14/25 at 0228, Repeat blood glucose every 15 minutes until blood glucose greater than 70 mg/dL. Call Provider if not resolved after 2 treatments Repeat BS in 1 hour, retime for 1 hour after blood sugar greater than 70 mg/dL If less than 41: Repeat Finger stick within 5 minutes with same machine Send serum glucose level: Do not wait on lab to treat glucagon injection 1 mg 1 mg Every 15 min PRN, intraMUSCULAR, low blood glucose (specify value in prn comments), For Patients without IV access and blood glucose 41-69 mg/dL AND unable to take PO OR Less than 41 mg/dL, Starting on Fri03/14/25 at 0228, Caution: glucagon . Roll patient on their side when administering to prevent aspiration. Call Provider if not resolved after 2 treatments Repeat BS in 1 hour, retime for 1 hour after blood sugar greater than 70 mg/dL glucose chew tab 16 g 16 g Every 15 min PRN, oral, low blood glucose (specify value in prn comments), 41-69 mg/dL, Starting on Fri03/14/25 at 0228, For Patients who can take oral AND blood glucose 41-69 mg/dL Give 4 Tabs every 15 minutes. Recheck blood glucose every 15 minutes and repeat 15 grams of carbohydrates until blood glucose is above 70 mg/dL. Give Meal or Snack Call Provider if not resolved after 3 treatments Repeat BS in 1 hour, retime for 1 hour after blood sugar greater than 70 mg/dL hydrALAZINE (APRESOLINE) injection 10 mg 10 mg Every 6 hours PRN, intravenous, hypertension (sbp greater than 160), Starting on Fri03/14/25 at 0202, Hold if SBP < 100 mmHg, DBP < 50 mmHg, or patient is on pressor. Look-alike/Sound-alike medication HYDROcodone-acetaminophen (NORCO) 5-325 mg per tablet 1 tablet 1 tablet Every 6 hours PRN, oral, moderate pain (4-6), Starting on Fri03/14/25 at 0204, 1st line analgesic 0306 (Given - Provider: David Balbuena RN) hydrOXYzine (ATARAX) tablet 25 mg 25 mg Every 8 hours PRN, oral, itching, Starting on Fri03/14/25 at 0247, Look-alike/Sound-alike medication magnesium sulfate IVPB 2 g in sterile water 50 mL (premix) at 25 mL/hr, Administer over 120 Minutes, intravenous, Daily as needed, for magnesium level 1.3 to 1.7 mg/dL, Starting on Fri03/14/25 at 0202, If magnesium is replaced per protocol order, recheck 1 hour after replacement and the next morning. magnesium sulfate IVPB 2 g in sterile water 50 mL (premix) at 25 mL/hr, Administer over 120 Minutes, intravenous, 2 times daily PRN, for magnesium level less than 1.3 mg/dL, Starting on Fri03/14/25 at 0202, Total dose of 4 g for each low magnesium result. If magnesium is replaced per protocol order, recheck 1 hour after replacement and the next morning. melatonin tablet 3 mg 3 mg Every Night PRN, oral, insomnia, Starting on Fri03/14/25 at 0202 0106 (Given - Provider: David Balbuena, SARAHY)2153 (Given - Provider: David Balbuena, SARAHY) morphine injection 2 mg 2 mg Every 6 hours PRN, intravenous, severe pain (7-10), Starting on Fri03/14/25 at 0202, 3rd line analgesic. Give only if inadequate response (less than 50% reduction in pain score) 60 minutes after administration of 2nd line agent. May give in addition to 1st + 2nd line analgesics (+ adjuvants if ordered) naloxone (NARCAN) injection 0.2 mg 0.2 mg Every 2 min PRN, intravenous, opioid reversal, respiratory depression,, Starting on Fri03/14/25 at 0202, Give for respiratory rate less than 10 breaths/min or if patient is difficult to arouse. Max dose = 10mg. Call provider. ondansetron (ZOFRAN) injection 4 mg(Linked Group 1) 4 mg Every 8 hours PRN, intravenous, nausea, vomiting, Starting on Fri03/14/25 at 0202, Give IV if patient is unable to take orally. 1st line If inadequate response within 60 minutes, proceed to next-line agent for same PRN reason or contact provider if no further options ordered. For IV push, give over 2 - 5 minutes. ondansetron (ZOFRAN-ODT) disintegrating tablet 4 mg(Linked Group 1) 4 mg Every 8 hours PRN, oral, nausea, vomiting, Starting on Fri03/14/25 at 0202, 1st line. If inadequate response within 60 minutes, proceed to next-line agent for same PRN reason or contact provider if no further options ordered. potassium chloride (KLOR-CON) ER tablet 40 mEq 40 mEq 4 times daily PRN, oral, for potassium less than or EQUAL to 3.4 mmol/L, Starting on Fri03/14/25 at 0202, Do not crush KCl tablets. If potassium is replaced per protocol order, recheck potassium 2 hour after replacement and the next morning. potassium chloride IVPB 10 mEq in 100 mL sterile water (premix) 10 mEq Every hour PRN, intravenous, Administer over 60 Minutes, for potassium less than or equal to 3.4 mmol/L, Starting on Fri03/14/25 at 0202, Total Dose 40 mEq, use only if unable to administer PO. Max Rate 10mEq/hr. If potassium is replaced per protocol order, recheck 1 hour after replacement and the next morning. sodium chloride flush 10 mL(Linked Group 2) 10 mL As needed, intravenous, line care, Starting on Fri03/14/25 at 0202, Every 8 hours and PRN to flush tiZANidine (ZANAFLEX) tablet 4 mg 4 mg 3 times daily PRN, oral, muscle spasms, Starting on Fri03/14/25 at 0248 Linked Groups Order Group 1: ondansetron (ZOFRAN-ODT) disintegrating tablet 4 mgJump to med 4 mg Every 8 hours PRN, oral, nausea, vomiting, Starting on Fri03/14/25 at 0202, 1st line. If inadequate response within 60 minutes, proceed to next-line agent for same PRN reason or contact provider if no further options ordered. Or ondansetron (ZOFRAN) injection 4 mgJump to med 4 mg Every 8 hours PRN, intravenous, nausea, vomiting, Starting on Fri03/14/25 at 0202, Give IV if patient is unable to take orally. 1st line If inadequate response within 60 minutes, proceed to next-line agent for same PRN reason or contact provider if no further options ordered. For IV push, give over 2 - 5 minutes. Group 2: Insert Peripheral IV (CANCELED) STAT, Once, On Fri03/14/25 at 0203, For 1 occurrence And Saline Lock IV (CANCELED) Routine, Once, On Fri03/14/25 at 0203, For 1 occurrence And sodium chloride flush 10 mLJump to med 10 mL As needed, intravenous, line care, Starting on Fri03/14/25 at 0202, Every 8 hours and PRN to flush documented in this encounter Care Teams Lead Project Engineer Relationship Specialty Start Date End Date [facility] [place] [address] PCP - General 03/14/25 03/17/25 Vasu Gutierres MD [address] [facility] [address] [place] [address] PCP - General Family Medicine 03/18/25 Sweetie Hewitt PA [facility] [address] [place] [address] Physician Museum Security Chief Physician Museum Security Chief 03/18/25 documented as of this encounter
--- OUTSIDE RECORDS SUMMARY | 2025-04-19 12:00 | XMS_ITS ---
[facility] [address] [facility] [address] [place] [id number] Care Team Providers Care Storage Administrator Name Role Phone Samuel Gutierres Primary Care Provider [phone] Allergies Allergen (clinical drug ingredient) Drug/Non Drug [...] Duration) Notes Start Date End Date Status Gabapentin 800 MG 1 tab(s) orally 3 ti mes a day; Duration: 30 days 03/11/2025 Active Farxiga 10 MG 1 tab(s) Orally once a day Active Lantus SoloStar 100 UNIT/ML 20 units Sub cutaneous once daily 08/12/2024 Active Accu-Chek Softclix Lancets - once a day; Duration: 100 days 02/14/2025 Active Accu-Chek Guide Test - as directed In Vi tro daily; Duration: 100 days 02/14/2025 Active Accu-Chek Guide w/Device as directed 02/14/2025 Active Diphenoxylate-Atropine 2.5-0.025 MG 1 tab(s) Orally q6h prn diarrhea 01/28/2025 Active Desvenlafaxine ER 100 MG 1 tab(s) orally At Bed Time Active traZODone HCl 150 MG 1 tab(s) orally onc e a day (at bedtime) Active Keppra 500 MG 1 tablet Orally Two times a day Active Atorvastatin Calcium 80 MG 1 tab(s) oral ly once a day in the evening; Duration: 30 days Active Qulipta 60 MG 1 tab(s) orally At B ed Time Active Melatonin 5 MG 1 tab Orally At Bed Time; Duration: 30 days 10/07/2023 Active Aspirin 325 MG 1 tab(s) orally once a day; Duration: 30 days Active Cetirizine HCl 10 MG 1 tablet Orally onc e daily Active tiZANidine HCl 4 MG 1 tablet Orally PRN As needed Active Omeprazole 40 MG 1 cap(s) Orally once daily; Duration: 30 days Active NIFEdipine ER 30 MG 1 tab(s) Orally Once a day; Duration: 30 days Active Acetaminophen 325 mg TAKE TWO TABLETS BY MOUTH EVERY 6 HOURS NEEDED; Duration: 13 Active FreeStyle John 2 Sensor - USE DIRECT ED (CHANGE EVERY 14 D AYS.; Duration: 28 Active FreeStyle John 14 Day [place] - as directed Active Lisinopril 40 MG 1 tablet Orally Once a day; Duration: 30 days Active Ingrezza 80 MG 1 cap(s) orally At B ed Time; Duration: 30 days Active Fluticasone Propionate 50 MCG/ACT 2 spray in each nostril Nasally once a day as needed 10/07/2024 Active Ibuprofen 800 MG 1 tablet with food o r milk as needed Orally every 8 hrs prn 08/05/2024 Active Promethazine HCl 25 MG 1 tab(s) Orally t wo times a day as needed Active Glucerna Shake - 240 ml Orally once daily 04/22/20 24 Active BD Pen Needle Micro U/F 32G [...] times a day as needed 05/06/2023 Active Vyepti 100 MG/ML as directed Intravenous Active Vital Signs Weight 136.0 lbs 04/19/2025 Blood pressure systolic 120 mm Hg 04/19/20 25 Blood pressure diastolic 80 mm Hg 025 Heart Rate 79 /min 04/19/2025 Height 63.50 in 04/19/2025 BMI 23.71 kg/m2 04/19/2025 Encounters Encounter Location Date Provider Diagnosis [facility] [address] [place] [id number] 04/19/2025 Samuel Gutierres Intractable periodic headache syndrome G43.C1 Assessments Encounter Date Diagnosis (ICD Code) Assessment Notes Treatment Notes Treatment Clinical Notes Section Notes 04/19/2025 Intractable periodic headache syndrome (ICD-10 - G43.C1) Order provided for injection of Stadol 3 mg and Phenergan 50 mg IM at [facility] today with Vyepti and Botox injections next month Continue with plan of care as outlined by the [facility]. Plan Of Treatment Treatment Notes Assessment Notes Intractable periodic headache syndrome O rder provided for injection of Stadol 3 mg and Phenergan 50 mg IM at [facility] today with Vyepti and Botox injections next month Next Appt Details Follow Up: prn, Reason: Progress Notes * JESUS MANUEL PITTMANADOB:1965 (60 yo F)Acc No.[id number]:04/19/2025 Progress Notes Patient: JACI HERNANDEZ Provider: Samuel Gutierres M.D. :1965 A ge:60 Y S ex:Female Date:04/19/2025 Address:[id number] Subjective: * Chief Complaints: * 1 . Migraine. * HPI: N eurology: Since her last visit, she was hospitalized at [facility] for possible stroke symptoms. There was concern with possible carotid stenosis. She was evaluated by neurology and cardiovascular surgery with no intervention. She was subsequently discharged to [facility]-term care under the care of Dr. Nunez. She comes in today complaining of a migraine headache for the past 4 weeks. Because of her hospitalization and long-term care admission, she has missed a dose of her Vyepti and Botox but states these are both scheduled in April. E NT/respiratory: She is scheduled to see Dr. Cool tomorrow for a cyst on her thyroid as arranged at the time of her [facility] discharge. * ROS: D ERMATOLOGY: no R jennifer. [...] Orally every 8 hrs prn , Taking Fluticasone Propionate 50 MCG/ACT Suspension 2 spray in each nostril Nasally once a day as needed , Taking [employer]-Snap! John 14 Day [place] - Device as directed , Taking Noah Private Wealth ManagementStyle John 2 Sensor - Miscellaneous USE DIRECTED [...] HCl 4 MG Tablet 1 tablet Orally PRN As needed, Taking Cetirizine HCl 10 MG Tablet 1 tablet Orally once daily , Taking Aspirin 325 MG Tablet Delayed Release 1 tab(s) orally once a day , Taking Atorvastatin Calcium 80 MG Tablet 1 tab(s) orally once a day in the evening , Taking Keppra 500 MG Tablet 1 [...] tab(s) Orally q6h prn diarrhea , Taking Accu-Chek Guide w/Device Kit as directed , Taking Accu-Chek Guide Test - Strip as directed In Vitro daily , Taking Accu-Chek Softclix Lancets - Miscellaneous once a day , Taking Lantus SoloStar 100 UNIT/ML Solution Pen-injector 20 units Subcutaneous once daily , Taking Farxiga 10 MG Tablet 1 tab(s) Orally once a day , Taking Gabapentin 800 MG Tablet 1 tab(s) orally 3 times a day , Discontinued Zithromax Z-Chuck 250 MG Tablet as directed Orally , Discontinued Alendronate Sodium 70 mg Tablet Take 1 [...] Side Effects. Objective: * Vitals: W t: 136.0, Temp: 98.4, BP: 120/80, HR: 79, Nurse: pe, Ht: 63.50, BMI:23.71. * Examination: G eneral Examination: General Appearance: S he comes in accompanied by friend.? A ffect is good. Weight gain noted.. O ral cavity: M ucous membranes slightly dry. H eart: R SR. L ungs: c lear to auscultation. N eurologic Exam: F acial grimacing. No other focal motor deficits.. Assessment: * Assessment: 1. I ntractable periodic headache syndrome - G43.C1 (Primary) Plan: * Treatment: * Follow Up: p rn * Images: Billing Information: * Visit Code: 19609 Office Visit, Est Pt., Level 3. * Procedure Codes: * Electronic signature of Samuel Gutierres MD on 04/21/2025 at 01:34 PM EDT Sign off status: Pending * Provider: Samuel Gutierres M.D. Date: 0 04/19/2025 Generated for Leanne mccracken/Mendy/eTjalilsmalem on: 01:34 PM EDT History and Physical Notes * Examination Category Sub-Category Detail Notes Category Not es General Examination Heart: RSR Lungs: clear to auscultatio n General Appearance: She comes in accompa nied by friend. Affect is good. Weight gain noted. Neurologic Exam: Facial grimacing. No other focal motor deficits. Oral cavity: Mucous membranes sli ghtly dry
--- OUTSIDE RECORDS SUMMARY | 2025-04-21 13:32 | XMS_ITS | Encounter Summary ---
Author Organization Healthcare Address [address] [place] [address] Care Team Providers Care Golf Course Designer Name Role Phone Vasu Gutierres MD Primary Care Provider +1- [phone] Reason for Visit * Reason Onset Date Comments HCN - Patient Message 02/10/2025 Reschedule Encounter Details Date Type Department Care Team (Late st Contact Info) Description 02/10/2025 Telephone [place] [facility] [address] [place] [address] Sweetie Hewitt, PA [address] [place] [address] HCN - Patient Message (Reschedule [...] for Call: Patient is calling back to Bizzby appt. Best contact number and optimal time of day to reach caller: [phone] anytime Note: Please do not reply to [...] Reason for Call: Patient calling to r/s [employer] appt Best contact number and optimal time of day to reach caller: [phone] or [phone] Note: Please do not reply to this message. Follow-up communication and further actions as a result of this message need to be communicated with the patient directly, if the patient is not active onMyChart. If the patient is active on MyChart, they will receive notification of the communication/outcome via [employer]. documented in this encounter Plan of Treatment Upcoming Encounters Date Type Department Care Team (Late st Contact Info) Description 05/04/2025 12:30 PM EDT Office Visit [place] [facility] [address] [place] [address] Sweetie Hewitt PA [address] [place] [address] documented as of this encounter Visit Diagnoses Not on filedocumented in this encounter Additional Health Concerns Assessment Noted Time A fall risk assessment has been complete d for the patient 12/02/2024 10:04 AM EDT A Body Mass Index follow-up plan has been documented for the patient 12/02/2024 10:09 AM EDT documented as of this encounter Care Teams Golf Course Designer Relationship Specialty Start Date End Date Vasu Gutierres MD [address] [place] [address] PCP - General 05/19/24 documented as of this encounter
--- OUTSIDE RECORDS SUMMARY | 2025-04-21 13:32 | XMS_ITS | Encounter Summary ---
Author Organization [facility] Address [address] [place] [address] Care Team Providers Care Contract Clerk Automobile Name Role Phone Vasu Gutierres MD Primary Care Provider +1- [phone] Encounter Details Date Type Department Care Team (Late st Contact Info) Description 03/08/2025 Telephone [facility] Infusion [address] [facility] [address] [place] [address] Sophie Gentile APRN Social History Tobacco Use Types Packs/Day Years [...] Pharmacy & Infusion Services Pre-Infusion Screening Citlali Jones Maravilla has an appointment for Vyepti infusion on 03/09/25. [employer]SULTANT called patient to complete pre-infusion screening questions. [...] Visit [place] [facility] [address] [place] [address] Sweetie Hewitt PA [address] [place] [address] documented as of this encounter Visit Diagnoses Not on filedocumented in this encounter Additional Health Concerns Assessment Noted Time A fall risk assessment has been complete d for the patient 12/02/2024 10:04 AM EDT A Body Mass Index follow-up plan has been documented for the patient 12/02/2024 10:09 AM EDT documented as of this encounter Care Teams Contract Clerk Automobile Relationship Specialty Start Date End Date Vasu Gutierres MD [address] [place] [address] PCP - General 05/19/24 documented as of this encounter
--- OUTSIDE RECORDS SUMMARY | 2025-04-21 13:32 | XMS_ITS | Encounter Summary ---
Author Organization [facility] Address [address] [place] [address] Care Team Providers Care Cement Finishing Supervisor Name Role Phone Vasu Gutierres MD Primary Care Provider +1- [phone] Encounter Details Date Type Department Care Team (Late st Contact Info) Description 03/10/2025 Telephone [facility] Infusion [address] [facility] [address] [place] [address] Sophie Gentile APRN Social History Tobacco Use [...] an appointment for Vyepti infusion on 03/11/25. LIFT BUILDER WHOLE called patient to complete pre-infusion screening questions. [...] Visit [place] [facility] [address] [place] [address] Sweetie Hewitt PA [address] [place] [address] documented as of this encounter Visit Diagnoses Not on filedocumented in this encounter Additional Health Concerns Assessment Noted Time A fall risk assessment has been complete d for the patient 12/02/2024 10:04 AM EDT A Body Mass Index follow-up plan has been documented for the patient 12/02/2024 10:09 AM EDT documented as of this encounter Care Teams Cement Finishing Supervisor Relationship Specialty Start Date End Date Vasu Gutierres MD [address] [place] [address] PCP - General 05/19/24 documented as of this encounter
--- OUTSIDE RECORDS SUMMARY | 2025-04-21 13:32 | XMS_ITS | Encounter Summary ---
Author Organization [facility] Address [address] [place] [address] Care Team Providers Care Scrap Metal Processing Worker Name Role Phone Vasu Gutierres MD Primary Care Provider +1- [phone] Encounter Details Date Type Department Care Team (Late st Contact Info) Description 02/23/2025 Telephone [facility] Infusion [address] [facility] [address] [place] [address] Nilda Love APRN [address] [place] [address] Social History Tobacco Use Types Packs/Day Years [...] Description 05/04/2025 12:30 PM EDT Office Visit [place] [facility] [address] [place] [address] Sweetie Hewitt, MECHE [address] [place] [address] documented as of this encounter Visit Diagnoses Not on filedocumented in this encounter Additional Health Concerns Assessment Noted Time A fall risk assessment has been complete d for the patient 12/02/2024 10:04 AM EDT A Body Mass Index follow-up plan has been documented for the patient 12/02/2024 10:09 AM EDT documented as of this encounter Care Teams Scrap Metal Processing Worker Relationship Specialty Start Date End Date Vasu Gutierres MD [address] [place] [address] PCP - General 05/19/24 documented as of this encounter
--- OUTSIDE RECORDS SUMMARY | 2025-04-21 13:32 | XMS_ITS | Encounter Summary ---
Author Organization [facility] Address [address] [place] [address] Care Team Providers Care Chef Assistant Name Role Phone Vasu Gutierres MD Primary Care Provider +1- [phone] Reason for Visit * Reason Onset Date Comments Vyepti rescheduling 03/28/2025 Encounter Details Date Type Department Care Team ([facility] Contact Info) Description 03/28/2025 Telephone [facility] Infusion [address] [place] [address] Michelle Monroe, PharmD Vyepti rescheduling Social History [...] encounter Miscellaneous Notes * Telephone Encounter - Jonna Olivo RN - 04/12/2025 8:24 AM EDT After multiple verbal and written attempts to reach patient with no response, patient has been discharged from [facility] services and is not filling their medication or [facility]. For those patients receiving Infusion Services, the therapy plan will be d iscontinued. documented in this encounter Plan of Treatment Upcoming Encounters Date Type Department Care Team ([facility] Contact Info) Description 05/04/2025 12:30 PM EDT Office Visit [place] [facility] [address] [place] [address] Sweetie Hewitt PA [address] [place] [address] documented as of this encounter Visit Diagnoses Not on filedocumented in this encounter Additional Health Concerns Assessment Noted Time A fall risk assessment has been complete d for the patient 12/02/2024 10:04 AM EDT A Body Mass Index follow-up plan has been documented for the patient 12/02/2024 10:09 AM EDT documented as of this encounter Care Teams Chef Assistant Relationship Specialty Start Date End Date Vasu Gutierres MD [address] [place] [address] PCP - General 05/19/24 documented as of this encounter
--- OUTSIDE RECORDS SUMMARY | 2025-04-21 13:33 | XMS_ITS | Encounter Summary ---
Author Organization [facility] Address [address] [place] [address] Care Team Providers Care Finisher Fine Diamond Dies Name Role Phone Vasu Gutierres MD Primary Care Provider Encounter Details Date Type Department Care Team (Late st Contact Info) Description 02/11/2024 Telephone [facility] [address] [facility] [address] [place] [address] Danis Chaidez, PT [address] [facility] [address] [place], [place] [address] Social History Tobacco Use Types Packs/Day Years Used Date Smoking Tobacco: Former Cigarettes Q uit: 07/17/2023 Passive Smoke Exposure: Current Smokeless Tobacco: Never Alcohol Use Standard Drinks/Week Comments Never 0 (1 standard drink = 0.6 oz pur e alcohol) [facility] Utilities Answer Date Recorded In the past 12 months has [employer], gas, oil, or water [employer] threatened to shut off services in your [...] and heating? Not hard at all 08/25/2023 [facility] - Occupational Stress [...] Description 10/07/2025 11:00 AM EDT Office Visit [facility] [address] [place] [address] Cheo Fu MD [address] [facility] [address] [place] [address] documented as of this encounter Visit Diagnoses Not on filedocumented in this encounter Additional Health Concerns Infection Onset Date Last Indicated Resolved Time COVID (rule out) 09/02/2024 09/02/2024 09/02/2024 10:52 AM EST Influenza 09/02/2024 09/02/2024 10/02/2024 9:08 PM EDT documented as of this encounter Care Teams Finisher Fine Diamond Dies Relationship Specialty Start Date End Date Vasu Gutierres MD [address] [facility] [address] [place] [address] PCP - General Family Medicine 03/05/23 documented as of this encounter
--- OUTSIDE RECORDS SUMMARY | 2025-04-21 13:33 | XMS_ITS | Encounter Summary ---
Author Organization Healthcare Address [address] [place] [address] Care Team Providers Care Treasury Representative Name Role Phone Vasu Gutierres MD Primary Care Provider +1- [phone] Encounter Details Date Type Department Care Team (Late Contact Info) Description 04/12/2025 Orders Only [facility] Infusion [address] [place] [address] Jonna Olivo, RN [facility] Social History Tobacco Use Types Packs/Day Years [...] Visit [place] [facility] [address] [place] [address] Sweetie Hewitt, MECHE [address] [place] [address] documented as of this encounter Visit Diagnoses Not on filedocumented in this encounter Additional Health Concerns Assessment Noted Time A fall risk assessment has been complete d for the patient 12/02/2024 10:04 AM EDT A Body Mass Index follow-up plan has been documented for the patient 12/02/2024 10:09 AM EDT documented as of this encounter Care Teams Treasury Representative Relationship Specialty Start Date End Date Vasu Gutierres MD [address] [place] [address] PCP - General 05/19/24 documented as of this encounter
--- OUTSIDE RECORDS SUMMARY | 2025-04-21 13:33 | XMS_ITS | Clinical Summary ---
Author Organization [facility] Address [address] [place] [address] Phone Care Team Providers Care [employer] Supervisor Name Role Phone [place] CFOFEY, Luigi Huitron [phone] [ ] Conditions or Problems Problem Name [...] right tibia, subsequent encounter Cellulitis, foot, right [id number] (SNOMED CT) 09/08 Active 09/08 Jaylene Mays Cellulitis of lower limb Infection, local skin/subcuta neous tissue 556828353 (SNOMED CT) 09/08 Active 09/08 Jaylene Davon Localized infection of skin AND/OR subcutaneous tissue CKD III(document a or b) 639443345 (SNOMED CT) 09/08 Active 09/08 Jaylene Davon Chronic kidney disease stage 3A Acute renal failure with tubular necrosis [id number] 101 (SNOMED CT) 09/08 Active 09/08 Jaylene Davon Acute renal failure due to tubular necrosis Elevation of levels of liver transaminase levels 277283549 (SNOMED CT) 09/08 Active 09/08 Jaylene Davon Elevated level of transaminase and lactic acid dehydrogenase Alkaline phosphatase, elevated 643757815 (SNOMED CT) 09/08 Active 09/08 Jaylene Mays Alkaline phosphatase above reference range Anemia due to acute blood loss 921257395 ([facility]) 09/08 Active 09/08 Jaylene Mays Acute posthemorrhagic anemia Anemia in CKD D63.1 (ICD-10-CM) 09/08 Active 09/08 Jaylene Mays Anemia in chronic kidney disease DM Type II E11.9 (ICD-10-CM) 09/08 Active 09/08 Jaylene Mays Type 2 diabetes mellitus without complications Benign Essential Hypertension [id number] ([facility]) 09/08 Active 09/08 Jaylene Mays Benign hypertension Medications Medication Instructions Start Date Stop Date Generic Name [facility] Provider [facility]onam [facility] Aztreonam 2G IV [id number] NEWSOMS 09/15 aztreonam recon binta [facility] RN Cubicin RF (daptomycin) recon binta Cubicin 650mg IV [id number] NEWSOMS 09/15 daptomycin [facility] RN NIFEDIPINE ER 30 MG [id number] Take 1 tablet by mouth once a day nifedipine 15708007805 Janay Manrique LISINOPRIL 40 MG TABS Take 1 tablet by mouth once a day lisinopril 79523482653 Janay Manrique QULIPTA 60 MG TABS Take 1 tablet by mouth atogepant 58411386328 Janay Manrique ACETAMINOPHEN 500 MG TABS Take 1 tablet by mouth every six hours as needed acetaminophen 46225660642 Janay Manrique insulin detemir (LEVEMIR) 100 UNIT/ML injection Inject 5 unit subcutaneously every morning as directed LEVEMIR Janay Manrique ACETAMINOPHEN 325 MG TABS Take 2 tablet by mouth every six hours as needed acetaminophen 71889373294 Janay Manrique HYDROXYZINE PAMOATE 25 MG CAPS Take 1 capsule by mouth three times a day as needed hydroxyzine pamoate 79701223737 Janay Manrique LEVETIRACETAM 500 MG TABS Take 1 tablet by mouth every twelve hours levetiracetam 00962886949 Janay Manrique ASPIRIN 325 MG TABS Take 1 tablet by mouth once a day aspirin 20427525499 Janay Manrique PEG 3350 17 GM PACK Take 17 gram by mouth once a day polyethylene glycol 3350 89474482294 Janay Manrique CYCLOBENZAPRINE HCL 5 MG TABS Take 1 tablet by mouth three times a day as needed cyclobenzaprine 54315570991 Janay Manrique ENOXAPARIN SODIUM 40 MG/0.4ML SOSY Inject 0.4 ml subcutaneously once a day as directed 11/02 enoxaparin 98536172934 Janay Manrique ATORVASTATIN CALCIUM 80 MG TABS Take 1 tablet by mouth every night atorvastatin 35897123758 Janay Manrique PROCHLORPERAZINE EDISYLATE 10 MG/2ML SOLN 2 ml every eight hours as needed prochlorperazine edisylate 68941245906 Janay Manrique INSULIN LISPRO 100 UNIT/ML SOLN Inject 2-7 unit subcutaneously four times a day as directed insulin lispro 80582701664 Janay Manrique SENNOSIDES-DOCUSAT E SODIUM 8.6-50 MG TABS Take 2 tablet by mouth twice a day as needed sennosides-docusa te sodium 84987074255 Janay Manrique PROMETHAZINE HCL 25 MG TABS Take 1 tablet by mouth every six hours as needed promethazine 22509476246 Janay Manrique Valbenazine Tosylate 80 MG capsule Take 1 capsule by mouth once a day Valbenazine Tosylate 80 MG capsule Janay Manrique TRAZODONE HCL 150 MG TABS Take 3 tablet by mouth every night trazodone 77564793750 Janay Manrique DOCUSATE SODIUM 100 MG CAPS Take 1 capsule by mouth twice a day 09/18 docusate sodium 32321220211 Janay Manrique OMEPRAZOLE 40 MG CPDR Take 1 capsule by mouth once a day omeprazole 54361486000 Janay Burton CETIRIZINE HCL 10 MG TABS Take 1 tablet by mouth once a day cetirizine 06903092799 Janay Manrique MELATONIN 5 MG TABS Take 1 tablet by mouth every night as needed melatonin 24321742859 [facility]comfort Burton LIDOCAINE PAIN RELIEF MAX ST 4 % PTCH Place 1 patch once a day as directed lidocaine 73139355589 Janay Manrique DESVENLAFAXINE SUCCINATE ER 100 MG [id number] Take 2 tablet by mouth once a day desvenlafaxine succinate 26639398613 Janay Manrique DOXYCYCLINE HYCLATE 100 MG CAPS Take 1 capsule by mouth twice a day 09/28 doxycycline hyclate 00241335325 Janay Burton ALENDRONATE SODIUM 70 MG TABS Take 1 tablet by mouth once a week alendronate 52083542038 Janay Manrique Cubicin RF (daptomycin) recon soln Cubicin 650mg [id number] 09/15 daptomycin [facility] RN aztreonam recon solmeseret Aztreonam 2G [facility] [id number] 09/15 aztreonam recon soln [facility] RN Valbenazine Tosylate 80 MG capsule Take 1 capsule by mouth Daily. 09/15 Valbenazine Tosylate 80 MG capsule QIE qieuser TRAZODONE HCL 150 MG TABS Take 3 tablets by mouth Every Night. 09/15 trazodone 94563039296 QIE qieuser SENNOSIDES-DOCUSAT E SODIUM 8.6-50 MG TABS Take 2 tablets by mouth 2 (Two) Times a Day As Needed for Constipation. sennosides-docusa te sodium 89017530440 QIE qieuser PROMETHAZINE HCL 25 MG TABS Take 1 tablet by mouth Every 6 (Six) Hours As Needed for Nausea or Vomiting. 09/15 promethazine 52351188685 QIE qieuser PROCHLORPERAZINE EDISYLATE 10 MG/2ML SOLN Infuse 2 mL into a venous catheter Every 8 (Eight) Hours As Needed (headache/migrai ne (give with iv benadryl)). 09/15 prochlorperazine edisylate 04063066999 QIE qieuser PEG 3350 17 GM PACK Take 17 g by mouth Daily. 09/15 polyethylene glycol 3350 09194011345 QIE qieuser ONETOUCH ULTRA STRP null blood sugar diagnostic 82042470752 QIE qieuser OMEPRAZOLE 40 MG CPDR Take 1 capsule by mouth Daily. 09/15 omeprazole 24997538398 QIE qieuser NIFEDIPINE ER 30 MG [id number] Take 1 tablet by mouth Daily. 09/15 nifedipine 71074226096 QIE [facility]ieuser NICOTINE STEP 1 21 MG/24HR PT24 null nicotine 93807423795 QIE qieuser MELATONIN 5 MG TABS Take 1 tablet by mouth At Night As Needed (insomnia). 09/15 melatonin 27044865781 QIE qieuser LISINOPRIL 40 MG TABS Take 1 tablet by mouth Daily. 09/15 lisinopril 98884670061 QIE [facility]ie[facility] LIDOCAINE PAIN RELIEF MAX ST 4 % PTCH Place 1 patch on the skin as directed by provider Daily. Remove & Discard patch within 12 hours or as directed by 09/15 lidocaine 98986414838 QIE [facility]ieuser LEVETIRACETAM 500 MG TABS Take 1 tablet by mouth Every 12 (Twelve) Hours. 09/15 levetiracetam 23897686998 [facility]IE [facility] ONETOUCH DELICA PLUS [id number] null lancets 51255974015 QIE [facility] INSULIN LISPRO 100 UNIT/ML SOLN Inject 2-7 Units under the skin into the appropriate area as directed 4 (Four) Times a Day Before Meals & at Bedtime. 09/15 insulin lispro 61564171367 QIE [facility] insulin detemir (LEVEMIR) 100 UNIT/ML injection Inject 5 Units under the skin into the appropriate area as directed Every Morning. 09/15 LEVEMIR QIE qieuser HYDROXYZINE PAMOATE 25 MG CAPS Take 1 capsule by mouth 3 (Three) Times a Day As Needed for Itching. 01/18 hydroxyzine pamoate 84316636472 QIE qieuser GABAPENTIN 400 MG CAPS Take 2 capsules by mouth Every 8 (Eight) Hours for 4 days. 09/08 gabapentin 60784531137 QIE q[facility]user ENOXAPARIN SODIUM 40 MG/0.4ML SOSY Inject 0.4 mL under the skin into the appropriate area as directed Daily for 60 days. 11/02 enoxaparin 28523777769 QIE q[facility] DOXYCYCLINE HYCLATE 100 MG CAPS Take 1 capsule by mouth 2 (Two) Times a Day for 14 days. 09/28 doxycycline hyclate 52236085515 QIE [facility] DOCUSATE SODIUM 100 MG CAPS Take 1 capsule by mouth 2 (Two) Times a Day for 15 days. 09/18 docusate sodium 98847320004 QIE qieuser DESVENLAFAXINE SUCCINATE ER 100 MG [id number] Take 2 tablets by mouth Daily. 09/15 desvenlafaxine succinate 86682288178 QIE qieuser CYCLOBENZAPRINE HCL 5 MG TABS Take 1 tablet by mouth 3 (Three) Times a Day As Needed for Muscle Spasms. 01/18 cyclobenzaprine 80622643423 QIE qieuser CETIRIZINE HCL 10 MG TABS Take 1 tablet by mouth Daily. 09/15 cetirizine 64395852416 QIE [facility] ANTACID CALCIUM 500 MG CHEW null calcium carbonate 56201303562 QIE qieuser BD PEN NEEDLE MICRO ULTRAFINE 32G X 6 MM null pen needle, diabetic 58782118459 QIE qieuser ATORVASTATIN CALCIUM 80 MG TABS Take 1 tablet by mouth Every Night. 09/15 atorvastatin 62377662503 QIE qieuser QULIPTA 60 MG TABS Take 1 tablet by mouth. 09/15 atogepant 75625610562 [facility]IE [facility] ASPIRIN 325 MG TABS Take 1 tablet by mouth Daily. 09/15 aspirin 48412630451 QIE q[facility]user ALENDRONATE SODIUM 70 MG TABS Take 1 tablet by mouth Every 7 (Seven) Days. 09/15 alendronate 10248328891 QIE [facility] ACETAMINOPHEN 500 MG TABS Take 1 tablet by mouth Every 6 (Six) Hours As Needed for Mild Pain. 09/15 acetaminophen 43401297643 QIE q[facility]user ACETAMINOPHEN 325 MG TABS Take 2 tablets by mouth Every 6 (Six) Hours As Needed for Mild Pain. 09/15 acetaminophen 55987826222 QIE [facility] Medications Administered No information available. [...] Sherly Fu ELETRIPTAN HYDROBROMIDE Critical Activ e Sehrly Fu DIHYDROERGOTAMINE MESYLATE Critical Ac tive Sherly [...] Procedures Code Procedure Name Date Entry Date [id number] CBC with Differential 2023 CPT-37319 C- reactive protein CPT-sl [facility] [id number] CBC with Differential 2023 CPT-72994 C- reactive protein [id number], [id number] CPK CPT-86638 Sedimentation Rate (ESR) 202 10/20/22 CPT-40153 CMP Vital Signs Date Name Value Unit [...]
--- OUTSIDE RECORDS SUMMARY | 2025-04-21 13:34 | XMS_ITS | Patient Health Record ---
[facility] [address] [facility] [address] [place] [id number] Care Team Providers Care Labor Standards Director Name Role Phone Samuel Gutierres Primary Care Provider [phone] Paulino Lombardi Unavailable [phone] Allergies Allergen (clinical drug ingredient) Drug/Non Drug [...] 139 Performing Lab: Notes/Report: Test performed by [facility] [address] [place] [address] , [address], [place] [address] Augustus Lee MD, Optics Engineer CLIA: [id number] Sodium 140 135-145 mmol/L Potassium 3.2 3.5-5.3 [...] Interpretation:Normal Performing Lab: Notes/Report: Test performed by [facility] [address] [place] [address] , [address], [place] [address] Augustus Lee MD, Optics Engineer CLIA: [id number] Magnesium 1.6 1.6-2.4 mg/dL P-TSH Reviewed date:03/07/2025 10:11:20 AM Interpretation:0.18 Performing Lab: Notes/Report: Test performed by [facility] [address] [place] [address] , [address], [place] [address] Augustus Lee MD, Optics Engineer CLIA: [id number] TSH 0.18 0.43-5.25 mU/L FAISAL Reviewed date:02/04/2025 05:10:02 PM Interpretation: Performing Lab: Notes/Report: Glycohemoglobin A1c (in hous e) Reviewed date:07/06/2024 08:31:07 AM Interpretation:7.6% Performing Lab: Notes/Report: 7.6% glycohemoglobin 7.6% 5 - 6.5 % P-Comprehensive Metabolic Pa [place] (CMP) Reviewed date:07/06/2024 08:31:07 AM Interpretation:gluc 173, Cr 1.22, gfr 50 Performing Lab: Notes/Report: Test performed by [facility] [address] [place], [place] [address] [place] , [address], [place] [address] Augustus Lee MD, Optics Engineer CLIA: [id number] Sodium 138 135-145 mmol/L Potassium 4.1 3.5-5.3 [...] Interpretation:Normal Performing Lab: Notes/Report: Test performed by [facility] [address] [place] [address] , [address], [place] [address] Augustus Lee MD, Optics Engineer CLIA: [id number] Cholesterol 159 <200 mg/dL Triglycerides 125 <150 [...] Duration) Notes Start Date End Date Status Acetaminophen 325 mg TAKE TWO TABLETS BY MOUTH EVERY 6 HOURS NEEDED; Duration: 13 Active FreeStyle John 2 Sensor - USE DIRECT ED (CHANGE EVERY 14 D AYS.; Duration: 28 Active FreeStyle John 14 Day Elbert - as directed Active Gabapentin 800 MG 1 tab(s) orally 3 ti mes a day; Duration: 30 days 03/11/2025 Active Fluticasone Propionate 50 MCG/ACT 2 spray in each nostril Nasally once a day as needed 10/07/2024 Active Farxiga 10 MG 1 tab(s) Orally once a day Active Ibuprofen 800 MG 1 tablet with food o r milk as needed Orally every 8 hrs prn 08/05/2024 Active Lantus SoloStar 100 UNIT/ML 20 units Sub cutaneous once daily 08/12/2024 Active Promethazine HCl 25 MG 1 tab(s) Orally t wo times a day as needed Active Accu-Chek Softclix Lancets - once a day; Duration: 100 days 02/14/2025 Active Glucerna Shake - 240 ml Orally once daily 04/22/20 Active Accu-Chek Guide Test - as directed In Vi tro daily; Duration: 100 days 02/14/2025 Active BD Pen Needle Micro U/F 32G X 6 MM USE DIRECTED TWICE DAILY.; Duration: 50 Active Accu-Chek Guide w/Device as directed 02/14/2025 Active Lidocaine 4 % 1 patch Externally O nce a day prn 10/07/2023 Active Diphenoxylate-Atropine 2.5-0.025 MG 1 tab(s) Orally q6h prn diarrhea 01/28/2025 Active Tums 500 MG 2 tablet Orally four times a day as needed 05/06/2023 Active Desvenlafaxine ER 100 MG 1 tab(s) orally At Bed Time Active Qulipta 60 MG 1 tab(s) orally At B ed Time Active Melatonin 5 MG 1 tab Orally At Bed Time; Duration: 30 days 10/07/2023 Active Vistaril 25 MG 1 cap(s) orally thre e times a day as needed; Duration: 30 days Active Glucagon Emergency 1 MG as directed Injection 05/21 Active GLUCOMETER DIRECTED TEST QD 07/09/2021 Active traZODone HCl 150 MG 1 tab(s) orally onc e a day (at bedtime) Active Vyepti 100 MG/ML as directed Intravenous Active Keppra 500 MG 1 tablet Orally [...] Once a day; Duration: 30 days Active Lisinopril 40 MG 1 tablet Orally Once a day; Duration: 30 days Active Ingrezza 80 MG 1 cap(s) orally At B ed Time; Duration: 30 days Active Immunizations Vaccine Route Administration Date Status Comme nts COVID 19 Allyson Unknown 10/21/2020 Administered COVID 19 Allyson Unknown 05/26/2021 Administered Hepatitis A (adult) IM Intramuscular 08/11/2018 Administered PNEUMOVAX 23 VACCINE Unknown 04/18/2014 Administered PNEUMOVAX 23 VACCINE Unknown 10/26/2019 Administered Shingrix IM Intramuscular 08/11/2018 Administered Tetanus Tdap-Adacel (over 7yrs) IM Intramuscular 07/10/2017 Administered Tetanus Tdap-Adacel (over 7yrs) Unknown 07/10/2017 Administered Tetanus Tdap-Adacel (over 7yrs) Unknown 07/10/2017 Administered xFlu shot- 6months-36 months of xnn-FGZK-LTKN-triv alent Unknown 04/18/2014 Administered xFlu shot-36 months and [...] older)-trivalent IM Intramuscular 05/27/2013 Administered xFluzone Intradermal (18-64yrs)-trivale nt-medicare pts ID Intradermal 04/07/2012 Administered xFluzone-trivalent -medicare pts. IM Intramuscular 06/17/2011 Administered Fluzone Quad-Medicare (6months&older) IM Intramuscular 05/23/2015 Administered Fluzone Quad-Medicare (6months&older) IM Intramuscular 06/28/2016 Administered Fluzone Quad-Medicare (6months&older) IM Intramuscular 04/02/2022 Administered Fluzone Quad-Medicare (6months&older) IM Intramuscular 04/15/2023 Administered Fluzone Quad (6months&older) IM Intramuscular 07/04/2020 Administered Fluzone PF Quad (6-35 months) Unknown 10/26/2019 Administered Fluzone High Dose (65yr and older) IM Intramuscular 04/22/2024 Administered Morphine 10mg/ml IM Intramuscular 03/06/2005 Administered [...] Status Risk Notes Problem Gastroesophageal reflux disease (338027906) GERD (gastroesophageal reflux disease) (K21.9) Active confirmed Problem Essential hypertension (16257521) Essential (primary) hypertension (I10) Active confirmed Problem Insomnia (956392726) Insomnia (G47.00) Active confirmed Problem Essential hypertension (49541803) Essential hypertension (I10) Active confirmed Problem Anxiety (70225789) Anxiety (F41.9) Active confi rmed Problem History of cerebrovascular accident without residual deficits (027830479) History of CVA (cerebrovascular accident) (Z86.73) Active confirmed Problem Seasonal allergy (056155196) Seasonal allergies (J30.2) Active confirmed Problem Hyperthyroidism (53154078) Hyperthyroidism (E05.90) Active confirmed Problem Socialized behavior disorder (356179228) Socialized behavior disorder (F91.2) Active confirmed Problem Mixed anxiety and depressive disorder (024080750) Depression with anxiety (F41.8) Active confirmed Problem Hyperglycemia due to type 2 diabetes mellitus (656278990019446) Type 2 diabetes mellitus with hyperglycemia (E11.65) Active confirmed Problem Dysphagia (54135628) Dysphagia (R13.10) Active confirmed Problem Polyneuropathy due to type 2 diabetes mellitus (733704014) Type 2 diabetes mellitus with diabetic polyneuropathy (E11.42) Active confirmed Problem Chronic pain (43364414) Other chronic pain (G89.29) Active confirmed Problem Adult failure to thrive syndrome (807337109) Adult failure to thrive (R62.7) Active confirmed Problem Long-term current use of anticoagulant (216696520) FPC (current) use of anticoagulants (Z79.01) Active confirmed Problem Long-term current use of insulin (824828921) FPC current use of insulin (Z79.4) Active confirmed Problem Thyroid nodule (667554134) Thyroid nodule (E04.1) Active confirmed Problem Acquired hammer toe of left foot (7377557194233054) Hammer toe of left foot (M20.42) Active confirmed Problem Migraine (92564580) Migraine wit hout status migrainosus, not intractable, unspecified migraine type (G43.909) Active confirmed Problem Osteoporosis (34954259) Osteoporosis (M81.0) Active confirmed Problem Intractable periodic headache syndrome (G43.C1) Active confirmed Problem Sacroiliitis (17219041) Sacroiliitis (M46.1) Active confirmed Problem Sleep disorder (51307452) Sleep disorder (G47.9) Active confirmed Problem Multinodular goiter (770802093) Multinodular goiter (E04.2) Active confirmed Problem Status migrainosus (151209480) Complicated migraine with status migrainosus (G43.901) Active confirmed Problem Dyslipidemia (008623055) Dyslipidemia (E78.5) Active confirmed Problem Transient ischemic attack (739101202) TIA (transient ischemic attack) (G45.9) Active confirmed Problem Tardive dyskinesia (394739997) Tardive dyskinesia (G24.01) Active confirmed Problem Tobacco use (419618929) Tobacco use disorder (F17.200) Active confirmed Problem Partial seizure (86398651) Partial seizure disorder (G40.109) Active confirmed Problem Oropharyngeal dysphagia (62259306) Oropharyngeal dysphagia (R13.12) Active confirmed Problem Acquired hammer toe of right foot (6682349186922027) Hammer toe of right foot (M20.41) Active confirmed Problem Right hemiparesis (718420107) Right hemiparesis (G81.91) Active confirmed Problem Cyst of thyroid (72693897) Thyroid cyst (E04.1) Active confirmed Problem History of benign neoplasm of brain (104406434) Hx of meningioma of the brain (Z86.011) Active confirmed Vital Signs Heart Rate 79 /min 04/19/2025 Blood pressure diastolic 80 mm Hg 04/19/2025 Height 63.50 in 04/19/2025 Blood pressure systolic 120 mm Hg 04/19/2025 Weight 136.0 lbs 04/19/2025 BMI 23.71 kg/m2 04/19/2025 Encounters Encounter Location Date Provider Diagnosis Peggy [address] [facility] [address] [facility] [address] [place] [id number] 04/22/2024 R Josh Gutierres Intractable periodic headache syndrome G43.C1 and Type 2 diabetes mellitus with diabetic polyneuropathy E11.[address] Peggy [address] [place] [id number] 05/13/2024 R Josh [place] Intractable periodic headache syndrome G43.C1 [facility] [address] [place] [id number] 05/27/2024 R Josh [place] Intractable periodic headache syndrome G43.C1 [facility] [address] [place] [id number] 07/01/2024 R Josh [place] Intractable periodic headache syndrome G43.C1 ; Type 2 diabetes mellitus with diabetic polyneuropathy E11.42 and Dyslipidemia E78.5 [facility] [address] [place] [id number] 08/05/2024 R Josh [place] Intractable periodic headache syndrome G43.C1 ; Type 2 diabetes mellitus with diabetic polyneuropathy E11.42 and Dyslipidemia E78.5 [facility] [address] [facility] [address] [place] [id number] 08/26/2024 R Josh [place] Intractable periodic headache syndrome G43.C1 [facility] [address] [facility] [address] [place] [id number] 09/30/2024 R Josh [place] Intractable periodic headache syndrome G43.C1 [facility] [address] [place] [id number] 10/28/2024 R Josh [place] Intractable periodic headache syndrome G43.C1 ; Type 2 diabetes mellitus with diabetic polyneuropathy E11.42 ; Tardive dyskinesia G24.01 and BMI 23.0-23.9, adult Z68.23 [facility] [address] [place] [id number] 12/30/2024 R Josh [place] Intractable periodic headache syndrome G43.C1 ; Tardive dyskinesia G24.01 ; Neoplasm of uncertain behavior of skin D48.5 ; Tobacco use disorder F17.200 ; Essential hypertension I10 and Partial seizure disorder G40.109 [facility] [address] [place] [id number] 01/25/2025 R Josh [place] Acute tonsillitis, unspecified J03.90 ; Intractable periodic headache syndrome G43.C1 and BMI 22.0-22.9, adult Z68.22 [facility] [address] [place], [place] [id number] 03/03/2025 R Josh [place] Intractable periodic headache syndrome G43.C1 ; Tardive dyskinesia G24.01 ; Tobacco use disorder F17.200 ; Essential hypertension I10 ; Partial seizure disorder G40.109 ; Weight loss R63.4 ; Type 2 diabetes mellitus with diabetic polyneuropathy E11.42 and Multinodular goiter E04.2 [facility] [address] [place], [place] [id number] 03/08/2025 R Josh [place] Type 2 diabetes sherlyn itus with diabetic polyneuropathy E11.42 ; Hammer toe of left foot M20.42 ; Hammer toe of right foot M20.41 ; Onychodystrophy L60.3 ; Hyperthyroidism E05.90 ; Weight loss R63.4 ; Adult failure to thrive R62.7 and BMI 20.0-20.9, adult Z68.20 [facility] [address] [place], [place] [id number] 04/19/2025 R Josh [place] Intractable periodic headache syndrome G43.C1 [facility] [address] [place], [place] [id number] 04/28/2024 Paulino Calipatria Type 2 diabetes sherlyn itus with diabetic polyneuropathy E11.42 [facility] [address] [place], [place] [id number] 05/06/2024 R Josh [place] [facility] [address] [place], [place] [id number] 05/10/2024 R Josh [place] [facility] [address] [facility] [address] [place], [place] [id number] 05/31/2024 R Josh [place] [facility] [address] [place], [place] [id number] 06/03/2024 R Josh [place] [facility] [address] [place] [id number] 06/03/2024 R Josh [place] Type 2 diabetes sherlyn itus with diabetic polyneuropathy E11.42 [facility] [address] [place], [place] [id number] 07/01/2024 R Josh [place] [facility] [address] [place], [place] [id number] 07/02/2024 R Josh [place] [facility] [address] [place] [id number] 07/06/2024 R Josh [place] [facility] [address] [place] [id number] 07/08/2024 R Josh [place] [facility] [address] [place], [place] [id number] 08/12/2024 R Josh [place] Type 2 diabetes sherlyn itus with diabetic polyneuropathy E11.42 [facility] [address] [place], [place] [id number] 08/18/2024 R Josh [place] Diarrhea R19.7 [facility] [address] [place] [id number] 08/19/2024 R Josh [place] [facility] [address] [place] [id number] 08/24/2024 R Josh [place] [facility] [address] [place] [id number] 08/30/2024 Paulino Calipatria Type 2 diabetes sherlyn itus with diabetic polyneuropathy E11.42 [facility] [address] [place] [id number] 09/16/2024 R Josh [place] Tardive dyskinesia G24.01 [facility] [address] [place], [place] [id number] 09/21/2024 R Josh [place] Type 2 diabetes sherlyn itus with diabetic polyneuropathy E11.42 [facility] [address] [place], [place] [id number] 10/04/2024 R Josh [place] [facility] [address] [place] [id number] 10/05/2024 R Josh [place] [facility] [address] [place] [id number] 10/07/2024 R Josh [place] [facility] [address] [place] [id number] 10/07/2024 R Josh [place] [facility] [address] [place] [id number] 10/15/2024 R Josh [place] [facility] [address] [place] [id number] 10/15/2024 R Josh [place] [facility] [address] [place] [id number] 10/26/2024 R Josh [place] [facility] [address] [place] [id number] 11/24/2024 R Josh [place] [facility] [address] [place] [id number] 12/06/2024 R Josh [place] [facility] [address] [place] [id number] 01/13/2025 R Josh [place] [facility] [address] [place] [id number] 01/28/2025 R Josh [place] Tardive dyskinesia G24.01 ; Essential hypertension I10 ; Dyslipidemia E78.5 and Type 2 diabetes mellitus with diabetic polyneuropathy E11.42 [facility] [address] [place] [id number] 01/28/2025 R Josh [place] Diarrhea R19.7 [facility] [address] [place] [id number] 01/28/2025 R Josh [place] Diarrhea R19.7 [facility] [address] [place] [id number] 02/04/2025 Paulinokunal Lombardi Type 2 diabetes sherlyn itus with diabetic polyneuropathy E11.42 [facility] [address] [place] [id number] 02/14/2025 R Josh N[place] [facility] [address] [place] [id number] 02/17/2025 R Josh [place] [facility] [address] [place] [id number] 03/07/2025 R Josh [place] Hyperthyroidism E05. 90 and Multinodular goiter E04.2 [facility] [address] [place] [id number] 03/09/2025 R Josh N[place] [facility] [address] [place], [place] [id number] 03/11/2025 R Josh [place] Type 2 diabetes sherlyn itus with diabetic polyneuropathy E11.42 [facility] [address] [place], [place] [id number] 03/23/2025 R Josh [place] Assessments Encounter Date Diagnosis (ICD Code) Assessment Notes Treatment Notes Treatment Clinical Notes Section Notes 04/22/2024 Type 2 diabetes mellitus with diabetic polyneuropathy (ICD-10 - E11.42) 04/22/2024 Intractable periodic headache syndrome (ICD-10 - G43.C1) Order provided for injection of Stadol 3 mg and Phenergan 50 mg IM at [facility] today. 04/28/2024 Type 2 diabetes mellitus with diabetic polyneuropathy (ICD-10 - E11.42) 05/13/2024 Intractable periodic headache syndrome (ICD-10 - G43.C1) Order provided for injection of Stadol 3 mg and Phenergan 50 mg IM at [facility] today. Keep appt with [facility] next week 05/27/2024 Intractable periodic headache syndrome (ICD-10 - G43.C1) Order provided for injection of Stadol 3 mg and Phenergan 50 mg IM at [facility] today. Follow through with plan of care as outlined by the [facility]. 06/03/2024 Type 2 diabetes mellitus with diabetic polyneuropathy (ICD-10 - E11.42) 07/01/2024 Type 2 diabetes mellitus with diabetic polyneuropathy (ICD-10 - E11.42) 07/01/2024 Intractable periodic headache syndrome (ICD-10 - G43.C1) Order provided for injection of Stadol 3 mg and Phenergan 50 mg IM at [facility] today. Follow through with plan of care as outlined by the [facility]. 08/12/2024 Type 2 diabetes mellitus with diabetic polyneuropathy (ICD-10 - E11.42) 08/18/2024 Diarrhea (ICD-10 - R19.7) 08/26/2024 Intractable periodic headache syndrome (ICD-10 - G43.C1) Order provided for injection of Stadol 3 mg and Phenergan 50 mg IM at [facility] today. Continue with plan of care [...] mg and Phenergan 50 mg IM at [facility] today. Continue with plan of care as outlined by the [facility]. 10/28/2024 Type 2 diabetes mellitus with diabetic polyneuropathy (ICD-10 - E11.42) 10/28/2024 Intractable periodic headache syndrome (ICD-10 - G43.C1) Order provided for injection of Stadol 3 mg and Phenergan 50 mg IM at [facility] today. Continue with plan of care as outlined by the [facility]. 08/05/2024 Type 2 diabetes mellitus with diabetic polyneuropathy (ICD-10 - E11.42) 08/05/2024 Intractable periodic headache syndrome (ICD-10 - G43.C1) Order provided for injection of Stadol 3 mg and Phenergan 50 mg IM at [facility] today. Continue with plan of care as outlined by the [facility]. 12/30/2024 Intractable periodic headache syndrome (ICD-10 - G43.C1) Order provided for injection of Stadol 3 mg and Phenergan 50 mg IM at [facility] today. Continue with plan of care as outlined by the [facility]. 12/30/2024 Tardive dyskinesia (ICD-10 - G24.01) 01/25/2025 Acute tonsillitis, unspecified (ICD-10 - J03.90) 01/25/2025 Intractable periodic headache syndrome (ICD-10 - G43.C1) Order provided for injection of Stadol 3 mg and Phenergan 50 mg IM at [facility] today. Continue with plan of care as outlined by the [facility]. 01/28/2025 Tardive dyskinesia (ICD-10 - G24.01) 01/28/2025 Diarrhea (ICD-10 - R19.7) 01/28/2025 Diarrhea (ICD-10 - R19.7) 02/04/2025 Type 2 diabetes mellitus with diabetic polyneuropathy (ICD-10 - E11.42) 03/03/2025 Intractable periodic headache syndrome (ICD-10 - G43.C1) Order provided for injection of Stadol 3 mg and Phenergan 50 mg IM at [facility] today. Continue with plan of care as outlined by the [facility]. 03/03/2025 Tardive dyskinesia (ICD-10 - G24.01) 03/07/2025 Hyperthyroidism (ICD-10 - E05.90) 03/07/2025 Multinodular goiter (ICD-10 - E04.2) 03/08/2025 Type 2 diabetes mellitus with diabetic polyneuropathy (ICD-10 - E11.42) 03/08/2025 Hammer toe of left foot (ICD-10 - M20.42) 03/11/2025 Type 2 diabetes mellitus with diabetic polyneuropathy (ICD-10 - E11.42) 04/19/2025 Intractable periodic headache syndrome (ICD-10 - G43.C1) Order provided for injection of Stadol 3 mg and Phenergan 50 mg IM at [facility] today with Vyepti and Botox injections next month Continue with plan of care as outlined by the [facility]. 03/08/2025 Hammer toe of right foot (ICD-10 - M20.41) 03/03/2025 Tobacco use disorder (ICD-10 - F17.200) 01/25/2025 BMI 22.0-22.9, adult (ICD-10 - Z68.22) 01/28/2025 Essential hypertension (ICD-10 - I10) 08/05/2024 Dyslipidemia (ICD-10 - E78.5) 12/30/2024 Neoplasm of uncertain behavior of skin (ICD-10 - D48.5) 10/28/2024 Tardive dyskinesia (ICD-10 - G24.01) 07/01/2024 [...] with diabetic polyneuropathy (ICD-10 - E11.42) 03/08/2025 BMI 20.0-20.9, adult (ICD-10 - Z68.20) 03/03/2025 Multinodular goiter (ICD-10 - E04.2) Plan Of Treatment Pending Test Test Name Order Date Lipid Profile 12/11/2023 Glycohemoglobin (HbA1C) 12/11/2023 CMP 12/11/2023 Radioactive Iodine Uptake Scan (I-123) 0 03/07/2025 Cologuard 12/03/2022 H-Thyroid panel 03/07/2025 H-Thyroid Peroxidase Antibodies 03/07/20 Insurance Providers Payer Name Payer Address Payer Phone Subscriber Number Group Number Insured Name Patient Relationship to Insured Coverage Start Date Coverage End Date [employer] [address] [address] [place], [place] [id number] JACI AWAN Self - patient is the [...] - Dr. Barahona ORIF R ankle fx/ [facility] 06/2023 [facility]plant of screws from right [facility]/ [facility] 07/2023 Hospitalization History Reason Date(Month/Year)
--- OUTSIDE RECORDS SUMMARY | 2025-04-21 13:35 | XMS_ITS | Encounter Summary ---
Author Organization Healthcare Address [address] [place] [address] Care Team Providers Care Risk Lead Name Role Phone Pcp, No Primary Care Provider Vasu Be MD Primary Care Provider [phone] Reason for Referral * Consultation (Routine) - Closed Specialty Diagnoses / Procedures Referred By Contac t Referred To Contact Neurology Diagnoses Chronic intractable headache, unspecified headache type Tardive dyskinesia History of drug abuse History of stroke Major depression in remission (CMS/[facility]) Mira Dolan MD [address] [place] [employer] [address] [place] [address] Phone: tel: fax: Luis Armando Weeks MD [address] [facility] [address] [place] [address] Phone: tel: fax: Referral ID Status Reason Start Date Expiration Date V isits Requested Visits Authorized [id number] Closed Specialty Services Required 03/05/2022 09/04/2023 1 1 Encounter Details Date Type Department Care Team (Late st Contact Info) Description 03/05/2022 [facility] [address] [place] [address] Mira Dolan MD [address] [facility] [address] [place] [address] Chronic intractable headache, unspecified headache type [...] Visit [place] [facility] [address] [place] [address] Sweetie Hewitt PA [address] [place] [address] Scheduled Referrals Name Type Priority Associated Diagnoses [...] remission documented in this encounter Care Teams Risk Lead Relationship Specialty Start Date End Date Pcp, Radha [address] [place] [address] PCP - General Family Medicine 06/04/23 05/18/24 Vasu Gutierres MD [address] [place] [address] PCP - General 05/19/24 documented as of this encounter
--- OUTSIDE RECORDS SUMMARY | 2025-04-21 13:35 | XMS_ITS | Clinical Summary ---
Author Organization [facility] Address [address] [place] [address] Care Team Providers Care Medical Records Supervisor Name Role Phone Vasu Gutierres MD Primary Care Provider +1- [phone] Allergies Active Allergy Reactions Criticality Noted Date [...] (one) time each day. Active Continuous Glucose Window Dresser (AdBm TechnologiesStyle John 14 Day [place]) device 3 Active Continuous Glucose Sensor (FreeStyle John 2 Sensor) [facility] USE DIRECTED (CHANGE EVERY 14 D AYS. [...] mouth 3 (three) times a day. Active Sapphire EnergyTouch Ultra Test test strip USE TO TEST 4 TIMES DAILY DIRECTED. Active hydrOXYzine pamoate (Vistaril) 25 MG capsule 4 Active Levemir FlexPen 100 UNIT/ML injection pen 4 Active BD Pen Needle Micro U/F 32G X 6 MM misc 2 (two) times a day. as directed 4 Active Lancets (OneTouch Delica Plus [id number]) misc 4 (four) times a day. 4 [...] Encounters Date Type Department Care Team Description 04/12/2025 Orders Only [facility] [address] [place] [address] Jonna Olivo RN 03/28/2025 Telephone [facility] [address] [place] [address] [place], PharmD Vyepti rescheduling 03/10/2025 Telephone [facility] [address] [facility] [address] [place] [address] Sophie Gentile APRN 03/08/2025 Telephone [facility] [address] [place] [address] SeferinoSophie, CRABBER 02/23/2025 Telephone [facility] [address] [place] [address] Nilda Love, CRABBER 02/10/2025 Telephone [place] [facility] [address], [address] [place] [address] Sweetie Hewitt, MECHE HCN - Patient Message [...] Visit [place] [facility] [address], [address] [place] [address] Sweetie Hewitt PA [address] [place] [address] Health Maintenance Due Date Last Done Comments [...] of 2 - PCV) 10/25/2020 10/26/2019, 04/18/2014 [id number] Vaccine (3 - season) 2025 05/26/2021, 10/21/2020 [...] age to complete this topic Insurance [place] [id number] [place] MEDICARE Care Teams Medical Records Supervisor Relationship Specialty Start Date End Date Vasu Gutierres MD [address] [facility] [place] [address] [facility] - General 05/19/24
--- OUTSIDE RECORDS SUMMARY | 2025-04-21 13:35 | XMS_ITS | Clinical Summary ---
Author Organization [facility] Address [address] [place] [address] Care Team Providers Care Correctional Program Officer Name Role Phone Vasu Gutierres MD [...] Needle Micro U/F 32G X 6 MM [facility] 3 Active Lancets (OneTouch Delica Plus [id number]) [facility] 3 Active nicotine (NICODERM CQ) 21 MG/24HR [...] Recorded In the past 12 months has [employer], gas, oil, or water [employer] threatened to shut off services in your [...] and heating? Not hard at all 08/25/2023 [facility] [place] [facility] Occup[facility] - Occupational Stress [...] Description 10/07/2025 11:00 AM EDT Office Visit [facility] [address] [place] [address] Cheo Fu MD [address] [address] Health Maintenance Due Date Last Done Comments [...] 07/10/2027 017 Medical Devices Implanted Type Area Authorization Rep Device Identifier Shelf Expiration Date Model / Serial / Lot Scrw Yunior Lp Ss 3.5x32mm - [id number] Implanted:Qty: 1 on 07/22/2023 by Cheo Fu MD at [facility] Implant Right: Ankle ARTHREX [id number] / / Plt Hk Medl Ss 5h - [id number] Implanted:Qty: 1 on 07/22/2023 by Cheo Fu MD at [facility] Implant Right: Ankle ARTHREX [id number] / / Scrw Yunior Lp Ss 3.5x26mm - [id number] Implanted:Qty: 1 on 07/22/2023 by Cheo Fu MD at [facility] Implant Right: Ankle ARTHREX [id number] / / Scrw Josiah Lp Thrd/Shrt Ss 4x42mm - [id number] Implanted:Qty: 1 on 07/22/2023 by Cheo Fu MD at [facility] Implant Right: Ankle ARTHREX [id number] / / Plt Dist Ankl Lk 6h 104mm Rt - [id number] Implanted:Qty: 1 on 07/22/2023 by Cheo Fu MD at [facility] Implant Right: Ankle ARTHREX [id number] / / Scrw Yunior Lp Ss 3.5x50mm - [id number] Implanted:Qty: 1 on 07/22/2023 by Cheo Fu MD at [facility] Implant Right: Ankle ARTHREX [id number] / / Scrw Yunior Lp Ss 3.5x42mm - [id number] Implanted:Qty: 1 on 07/22/2023 by Cheo Fu MD at [facility] Implant Right: Ankle ARTHREX [id number] / / Scrw Compr Kreulock Lk Ful/Thrd Ss 2.7x12mm - [id number] Implanted:Qty: 1 on 07/22/2023 by Cheo Fu MD at [facility] Implant Right: Ankle ARTHREX [id number] / / Scrw Compr Kreulock Lk Ful/Thrd Ss 2.7x16mm - [id number] Implanted:Qty: 3 on 07/22/2023 by Cheo Fu MD at [facility] Implant Right: Ankle ARTHREX [id number] / / Scrw Yunior Lp Ss 3.5x12mm - [id number] Implanted:Qty: 3 on 07/22/2023 by Cheo Fu MD at [facility] Implant Right: Ankle ARTHREX [id number] / / Gw Troc Tp 1.07n087nz - [id number] Implanted:Qty: 2 on 07/22/2023 by Cheo Fu MD at [facility] Implant Right: Ankle ARTHREX [id number] / / Explanted Type Area Authorization Rep Device Identifier Shelf Expiration Date Model / Serial / Lot Scrw Yunior Lp Ss 2.7x16mm - [id number] Explanted:Qty: 1 on 07/22/2023 by Cheo Fu MD at [facility] Implant Right: Ankle ARTHREX [id number] / / Scrw Yunior Lp Ss 2.7x18mm - [id number] Explanted:Qty: 1 on 07/22/2023 by Cheo Fu MD at [facility] Implant Right: Ankle ARTHREX [id number] / / Procedures Procedure Name Priority Date/Time [...] Hemoglobin A1c (12/30/2023 11:38 AM EDT) Pathologist [facility] Hemoglobin A1C 7.90(H) 4.80 - 5.60 % 12/30/2023 2:09 PM EDT [facility] Blood Venipuncture / Unknown 12/30/2023 11:38 AM EDT 12/30/2023 11:39 AM EDT Narrative [facility] - 12/30/2023 2:09 PM EDT Hemoglobin A1C Ranges: Increased Risk for Diabetes 5.7% to 6.4% Diabetes >= 6.5% Diabetic Goal < 7.0% Vasu Gutierres MD LAB BLOOD ORDERABLES F inal Result [facility]
[address] [place] [address], * (ABNORMAL) Lipid Panel (12/30/2023 11:38 AM EDT) Total Cholesterol 145 0 - 200 mg/dL 12/30/2023 7:13 PM EDT [facility] Triglycerides 86 0 - 150 mg/dL 12/30/2023 7:13 PM EDT [facility] HDL Cholesterol 62(H) 40 - 60 mg/dL 12/30/2023 7:13 PM EDT [facility] LDL Cholesterol 67 0 - 100 mg/dL 12/30/2023 7:13 PM EDT [facility] VLDL Cholesterol 16 5 - 40 mg/dL 12/30/2023 7:13 PM EDT [facility] LDL/HDL Ratio 1.06 12/30/2023 7:13 PM EDT [facility] Blood Venipuncture / Unknown 12/30/2023 11:38 AM EDT 12/30/2023 11:39 AM EDT Narrative [facility] - 12/30/2023 7:13 PM EDT Cholesterol [...] MD LAB BLOOD ORDERABLES F inal Result [facility]
[address] [place] [address], [place] [phone] from Last 3 Months or Most Recently Relevant to Health Maintenance Insurance [facility] MEDICARE ADVANTAGE SNP PPO Advance Directives * [...] or is breathing): Full Support Care Teams Correctional Program Officer Relationship Specialty Start Date End Date Vasu Gutierres MD [address] [place] [address] PCP - General Family Medicine 03/05/23
[2025-04-21 14:00] LABS: Hematocrit 38.2 % (37.0-47.0); Hemoglobin 12.1 g/dL (12.2-16.2); Immature Granulocytes % 0.2 %; Mean Corpuscular HGB Conc 31.7 g/dL (31.8-35.4); Mean Corpuscular Hemoglobin 31.5 pg (27.0-31.2); Mean Corpuscular Volume 99.5 fl (81-99); Nucleated Red Blood Cells % 0 %; Platelet Count 195 K/mm3 (142-424); Red Blood Count 3.84 M/mm3 (4.20-5.40); Red Cell Distribution Width-SD 49.9 fL; White Blood Count 8.5 K/mm3 (4.8-10.8)
[2025-04-21 14:50] LABS: Alanine Aminotransferase 17 U/L (12-78); Albumin Level 3.2 g/dl (3.5-5.0); Albumin/Globulin Ratio 1.5 (1.1-1.8); Alkaline Phosphatase 107 U/L (38-126); Anion Gap 10.6 mEq/L (5-15); Aspartate Amino Transferase 17 U/L (14-36); Bilirubin,Total 0.5 mg/dl (0.2-1.3); Blood Urea Nitrogen 33 mg/dl (7-17); Calcium 9.5 mg/dl (8.4-10.2); Carbon Dioxide 27 mmol/L (22.0-30.0); Chloride 104 mmol/L (98-107); Creatinine,Serum 1.10 mg/dl (0.52-1.04); Estimated Glomerular Filt Rate 50 ml/min (>60); GFR (African American) 61 ML/MIN (>60); Globulin 2.2 g/dL (1.3-3.2); Glucose 113 mg/dl (74-100); Potassium 4.6 mmoL/L (3.5-5.1); Sodium 137 mmol/L (136-145); Total Protein,Serum 5.4 g/dl (6.3-8.2)
[2025-04-21 15:03] LABS: Free T4 (Free Thyroxine) 0.89 ng/dl (0.78-2.19)
[2025-04-21 16:10] LABS: Thyroid Stimulating Hormone 0.24 uIU/mL (0.465-4.68)
[2025-04-21 18:26] LABS: Hemoglobin A1C 6.7 % (4.0-6.0)
--- OUTSIDE RECORDS SUMMARY | 2025-05-02 11:24 | XMS_ITS | Clinical Summary ---
Author Organization [employer] [place], [place], [place] Address [address] [place] [address] Care Team Providers Care Regenerator Operator Name Role Phone Vasu Gutierres MD Primary Care Provider [phone] Sweetie Hewitt Unavailable [phone] Allergies Active Allergy Reactions Criticality Noted [...] Nausea And Vomiting 03/12/2023 Per pt report [place] (Prunus Persica) Other (See Comments) Low 05/15/2017 [...] - 03/18/2025 1:56 PM EDT Hospital Encounter [facility] Cardiac Telemetry [address] [place] [address] Murphy Hugo MD Elliott, Jayden, PA-C Ma, MD Ivis Discharge Disposition: Retirement Facility 03/14/2025 Travel from Last 3 Months [...] Do you speak a language other than [place] at [facility]? No 03/14/2025 Do you want help with [...] Description 05/24/2025 9:00 AM EST Office Visit [facility] Cardiology [address] [place] [phone] Kris Gomez MD [address] [place] [address] [address] [place] [address] Health Maintenance Due Date Last Done Comments [...] of18 resultswithin the time period is included. [facility] POC-GLUCOSE 331(H) 70 - 110 mg/dL 03/18/2025 11:58 AM EDT [facility] Comment: In the event of poor peripheral blood flow, venous or arterial blood should be used due to the potential of erroneous results. Notified Nurse RBV Union Carpenter [phone] 03/18/2025 11:58 AM EDT [facility] Blood WHOLE BLOOD / Unknown 03/18/2025 11:50 AM EDT 03/18/2025 11:57 AM EDT [facility] - 03/18/2025 11:58 AM EDT Union Carpenter ID is - [id number] Ivis Sequeira MD POINT OF CARE TEST ORDERABLES Fi nal Result Performing Organization Address [facility] de Phone Number [facility] [address] [place] [address] * Magnesium (03/15/2025 6:13 AM EDT) Only the most recent of2 resultswithin the time period is included. Magnesium 1.6 1.6 - 2.6 mg/dL 03/15/2025 10:53 AM EDT [facility] Blood Venipuncture / Unknown 03/15/2025 6:13 AM EDT 03/15/2025 6:28 AM EDT [facility] - 03/15/2025 10:53 AM EDT Specimen slightly hemolyzed Ivis Sequeira MD LAB BLOOD ORDERABLES Final Resul t Performing Organization Address [facility] Co de Phone Number [facility] [address] [phone] * Lipid panel (03/15/2025 6:13 AM EDT) Triglycerides 100 <=149 mg/dL 03/15/2025 7:22 AM EDT [facility] Comment: Normal: < 150 mg/dL Borderline High: 150 to 199 mg/dL High: 200 to 499 mg/dL Very High: >/= 500 mg/dL Cholesterol 111 100 - 199 mg/dL 03/15/2025 7:22 AM EDT [facility] Comment: Child: Desirable: < 170 mg/dL Borderline: 170 to 199 mg/dL High: >/= 200 mg/dL Adult: Desirable: < 200 mg/dL Borderline: 200 to 239 mg/dL High: >/= 240 mg/dL HDL Cholesterol 43 See Comment mg/dL 03/15/2025 7:22 AM EDT [facility] Comment: Major risk factor for heart disease: < 40 mg/dL Negative risk factor for heart disease: >/= 60 mg/dL LDL Cholesterol, Calculated 48 0 - 100 mg/dL 03/15/2025 7:22 AM EDT [facility] Comment: Unable to calculate Optimal: < 100 mg/dL Near or above optimal: 100 to 129 mg/dL Borderline high: 130 to 159 mg/dL High: 160 to 189 mg/dL Very high: >/= 190 mg/dL Based on AHA/NCEP Guidelines LDl/HDL Ratio 1 0 - 4 03/15/2025 7:22 AM EDT [facility] Comment:Unable to calculate. Cholesterol/HDL ratio 2.6 0.0 - 5.0 mg/dL 03/15/2025 7:22 AM EDT [facility] VLDL Cholesterol 20 5 - 40 mg/dL 03/15/2025 7:22 AM EDT [facility] Comment:Unable to calculate Blood Venipuncture / Unknown 03/15/2025 6:13 AM EDT 03/15/2025 6:28 AM EDT Narrative [facility] - 03/15/2025 7:22 AM EDT Specimen slightly hemolyzed us Ivis Sequeira MD LAB BLOOD ORDERABLES Final Resul t [facility] [address] [phone] * (ABNORMAL) Basic Metabolic Panel (03/15/2025 6:13 AM EDT) Sodium 139 136 - 145 meq/L 03/15/2025 10:52 AM EDT [facility] Potassium 3.7 3.4 - 5.1 meq/L 03/15/2025 10:52 AM EDT [facility] CO2 20(L) 22 - 29 meq/L 03/15/2025 10:52 AM EDT [facility] Chloride 106 98 - 112 meq/L 03/15/2025 10:52 AM EDT [facility] Glucose 200(H) 82 - 115 mg/dL 03/15/2025 10:52 AM EDT [facility] BUN 27.9(H) 9.8 - 20.1 mg/dL 03/15/2025 10:52 AM EDT [facility] Creatinine 0.99 0.57 - 1.11 mg/dL 03/15/2025 10:52 AM EDT [facility] BUN/Creatinine 28(H) 8 - 20 03/15/2025 10:52 AM EDT [facility] Calcium 9.8 8.4 - 10.2 mg/dL 03/15/2025 10:52 AM EDT [facility] Anion Gap 17(H) 4 - 12 03/15/2025 10:52 AM EDT [facility] eGFR (mL/min/1.73m2) 65 >=60 mL/min/1.7 3m2 03/15/2025 10:52 AM EDT [facility] Osmolality Calc 288.6 mOsm/kg 10:52 AM EDT [facility] Blood Venipuncture / Unknown 03/15/2025 6:13 AM EDT 03/15/2025 6:28 AM EDT Narrative [facility] - 03/15/2025 10:52 AM EDT Specimen slightly hemolyzed us Ivis Sequeira MD LAB BLOOD ORDERABLES Final Resul t [facility] [address] [phone] * MRI B[facility] W WO CONTRAST [...] Name ZAIN BEATTY Age 60 Patient Number [id number] Gender Female Race Unknown Ethnicity Corporate ID [id number] Height 62 Date of 1965 Weight 121 Accession Number [id number] BSA 1.54 m^2 Room Number 308 BMI 22.13 kg/m^2 Referring IVIS SEQUEIRA MD Interpreting KRIS GOMEZ MD Physician Physician Referral Specialist LORRAINE Davies Procedure Type of Study: Cerebral: [...] Name ZAIN BEATTY Age 60 Patient Number [id number] Gender Female Race Unknown Ethnicity Corporate ID [id number] Height 62 Date of 1965 Weight 121 Accession Number [id number] BSA 1.54 m^2 Room Number 308 BMI 22.13 kg/m^2 Referring IVIS SEQUEIRA MD Interpreting KRIS HANSON Physician Physician Referral Specialist LORRAINE Davies Procedure Type of Study: Cerebral: [...] 10.0 K/ L 03/14/2025 11:31 AM EDT [facility] RBC 4.98 3.93 - 5.22 M/ L 03/14/2025 11:31 AM EDT [facility] Hemoglobin 15.8(H) 11.2 - 15.7 GM/DL 03/14/2025 11:31 AM EDT [facility] Hematocrit 46.1(H) 34.1 - 44.9 % 03/14/2025 11:31 AM EDT [facility] MCV 93 79 - 95 fL 03/14/2025 11:31 AM EDT [facility] MCH 31.7 25.6 - 32.2 pg 03/14/2025 11:31 AM EDT [facility] MCHC 34.3 32.2 - 35.5 GM/DL 03/14/2025 11:31 AM EDT [facility] RDW 12.3 11.7 - 14.4 % 03/14/2025 11:31 AM EDT [facility] Platelets 218 140 - 375 K/CU MM 03/14/2025 11:31 AM EDT [facility] MPV 9.3(L) 9.4 - 12.3 fL 03/14/2025 11:31 AM EDT [facility] % Neutros 68 34 - 71 % 03/14/2025 11:31 AM EDT [facility] % Lymphs 25 19 - 52 % 03/14/2025 11:31 AM EDT [facility] % Monos 6 5 - 13 % 03/14/2025 11:31 AM EDT [facility] % Eos 1 1 - 6 % 03/14/2025 11:31 AM EDT [facility] % Baso 1 0 - 1 % 03/14/2025 11:31 AM EDT [facility] NRBC Absolute <0.01 0 - 0.012 K/ul 03/14/2025 11:31 AM EDT [facility] # Neutros 5.58 1.56 - 6.13 K/ L 03/14/2025 11:31 AM EDT [facility] # Lymphs 2.04 1.18 - 3.74 K/ L 03/14/2025 11:31 AM EDT [facility] # Monos 0.52 0.24 - 0.86 K/ L 03/14/2025 11:31 AM EDT [facility] # Eos 0.04 0.04 - 0.36 K/ L 03/14/2025 11:31 AM EDT [facility] # Baso 0.05 0.01 - 0.08 K/ L 03/14/2025 11:31 AM EDT [facility] Immature Granulocytes-Re lative 0.40 0.01 - 0.43 % 03/14/2025 11:31 AM EDT [facility] # IG 0.03 0.00 - 0.03 K/uL 03/14/2025 11:31 AM EDT [facility] Blood Venipuncture / Unknown 03/14/2025 10:49 AM EDT 03/14/2025 11:27 AM EDT Narrative [facility] - 03/14/2025 11:31 AM EDT When [...] MD LAB BLOOD ORDERABLES Final Resul t [facility] [address] [place] [id number] [phone] * (ABNORMAL) Comprehensive metabolic panel (03/14/2025 10:49 AM EDT) Sodium 144 136 - 145 meq/L 03/14/2025 11:52 AM EDT [facility] Potassium 3.3(L) 3.4 - 5.1 meq/L 03/14/2025 11:[address] [facility] [place] Chloride 106 98 - 112 meq/L 03/14/2025 11:[address] [facility] [place] CO2 21(L) 22 - 29 meq/L 03/14/2025 11:[address] [facility] [place] Calcium 9.8 8.4 - 10.2 mg/dL 03/14/2025 11:[address] [facility] [place] Glucose 114 82 - 115 mg/dL 03/14/2025 11:[address] [facility] [place] BUN 21.3(H) 9.8 - 20.1 mg/dL 03/14/2025 11:[address] [facility] [place] Creatinine 0.83 0.57 - 1.11 mg/dL 03/14/2025 11:[address] [facility] [place] BUN/Creatinine 26(H) 8 - 20 03/14/2025 11:[address] [facility] [place] eGFR (mL/min/1.73m2) 80 >=60 mL/min/1. 73m2 03/14/2025 11:[address] [facility] [place] Albumin 3.4(L) 3.5 - 5.0 g/dL 03/14/2025 11:[address] [facility] [place] Alkaline Phosphatase 99 40 - 150 U/L 03/14/2025 11:[address] [facility] [place] ALT 24 <=34 U/L 03/14/2025 11:[address] [facility] [place] Comment: ALT2 reagent used for testing does not contain P5P supplementation and therefore may miss ALT elevations in patients with B6 deficiency. This population may be as high as 10% in the [place], with risk factors including malabsorption, drug interactions, and alcoholic hepatitis. AST 34 11 - 34 U/L 03/14/2025 11:[address] [facility] [place] Comment: AST2 reagent used for testing does not contain P5P supplementation and therefore may miss AST elevations in patients with B6 deficiency. This population may be as high as 10% in the [place], with risk factors including malabsorption, drug interactions, and alcoholic hepatitis. Total Bilirubin 0.6 0.2 - 1.2 mg/dL 03/14/2025 11:52 AM EDT [facility] Protein, Total 6.7 6.4 - 8.3 g/dL 03/14/2025 11:52 AM EDT [facility] Globulin 3.3 2.5 - 4.1 g/dL 03/14/2025 11:52 AM EDT [facility] Anion Gap 20(H) 4 - 12 03/14/2025 11:52 AM EDT [facility] A/G Ratio 1.0 0.7 - 1.9 03/14/2025 11:52 AM EDT [facility] Osmolality Calc 290.8 mOsm/kg 11:52 AM EDT [facility] Blood Venipuncture / Unknown 03/14/2025 10:49 AM EDT 03/14/2025 11:27 AM EDT Ivis Sequeira MD LAB BLOOD ORDERABLES Final Resul t [facility] [address] [phone] from Last 3 Months Insurance [facility] ADV DUAL COMPLETE [place] Advance Directives For more information, please contact: [phone] * Full Code (Latest Code Status on File) Date Activated Date Inactivated Comments 03/14/2025 1:04 AM 03/18/2025 3:17 PM Care Teams Regenerator Operator Relationship Specialty Start Date End Date Vasu Gutierres MD [address] [place] [address] PCP - General Family Medicine 03/18/25 Sweetie Hewitt PA [facility] [address] [place] [address] Physician Protection Consultant Physician Protection Consultant 03/18/25
--- OUTSIDE RECORDS SUMMARY | 2025-05-02 11:24 | XMS_ITS | Referral Summary ---
Author Organization [employer] ([place], [place], [place], [place]) Address [address] [place] [address] Care Team Providers Care Package Sealer Machine Name Role Phone Vasu Gutierres MD Primary Care Provider +1- [phone] Sweetie Hewitt Unavailable [phone] Encounters Date Type Department Care Team Description 03/14/2025 1:17 AM EDT - 03/18/2025 1:56 PM EDT Hospital Encounter [facility] Cardiac Telemetry [address] [place] [address] Murphy Hugo MD Elliott, Jayden, PA-C Ma, MD Ivis Discharge Disposition: Alf Facility 03/14/2025 Travel from Last 3 Months [...] Nausea And Vomiting 03/12/2023 Per pt report Dorado (Prunus Persica) Other (See Comments) Low 05/15/2017 [...] Do you speak a language other than [place]ian at [facility]? No 03/14/2025 Do you want help with [...] EST Office Visit [facility] Cardiology [address] [place] [address] [place] [address] [place] [address] [address] [place] [address] Procedures Procedure Name Priority Date/Time Associated Diagnosis [...] - 110 mg/dL 03/18/2025 11:58 AM EDT [facility] Comment: In the event of poor peripheral blood flow, venous or arterial blood should be used due to the potential of erroneous results. Notified Nurse [employer] Electronic Warfare Operator [id number] 03/18/2025 11:58 AM EDT [facility] Blood WHOLE BLOOD / Unknown 03/18/2025 11:50 AM EDT 03/18/2025 11:57 AM EDT [facility] - 03/18/2025 11:58 AM EDT Aviation Electronic Warfare Operator ID is - [id number] us Ivis Sequeira MD POINT OF CARE TEST ORDERABLES Fi nal Result [facility] [address] [phone] * Magnesium (03/15/2025 6:13 AM EDT) Only the most recent of2 resultswithin the time period is included. Pathologist [facility] Magnesium 1.6 1.6 - 2.6 mg/dL 03/15/2025 10:53 AM EDT [facility] Blood Venipuncture / Unknown 03/15/2025 6:13 AM EDT 03/15/2025 6:28 AM EDT [facility] - 03/15/2025 10:53 AM EDT Specimen slightly hemolyzed us Ivis Sequeira MD LAB BLOOD ORDERABLES Final Resul t [facility] [address] [place] [id number], [facility] [phone] * Lipid panel (03/15/2025 6:13 AM EDT) Triglycerides 100 <=149 mg/dL 03/15/2025 7:22 AM EDT [facility] Comment: Normal: < 150 mg/dL Borderline High: 150 to 199 mg/dL High: 200 to 499 mg/dL Very High: >/= 500 mg/dL Cholesterol 111 100 - 199 mg/dL 03/15/2025 7:22 AM EDT [facility] Comment: Child: Desirable: < 170 mg/dL Borderline: 170 to 199 mg/dL High: >/= 200 mg/dL Adult: Desirable: < 200 mg/dL Borderline: 200 to 239 mg/dL High: >/= 240 mg/dL HDL Cholesterol 43 See Comment mg/dL 03/15/2025 7:22 AM EDT [facility] Comment: Major risk factor for heart disease: < 40 mg/dL Negative risk factor for heart disease: >/= 60 mg/dL LDL Cholesterol, Calculated 48 0 - 100 mg/dL 03/15/2025 7:22 AM EDT [facility] Comment: Unable to calculate Optimal: < 100 mg/dL Near or above optimal: 100 to 129 mg/dL Borderline high: 130 to 159 mg/dL High: 160 to 189 mg/dL Very high: >/= 190 mg/dL Based on AHA/NCEP Guidelines LDl/HDL Ratio 1 0 - 4 03/15/2025 7:22 AM EDT [facility] Comment:Unable to calculate. Cholesterol/HDL ratio 2.6 0.0 - 5.0 mg/dL 03/15/2025 7:22 AM EDT [facility] VLDL Cholesterol 20 5 - 40 mg/dL 03/15/2025 7:22 AM T [facility] Comment:Unable to calculate Blood Venipuncture / Unknown 03/15/2025 6:13 AM EDT 03/15/2025 6:28 AM EDT Narrative [facility] - 03/15/2025 7:22 AM EDT Specimen slightly hemolyzed us Ivis Sequeira MD LAB BLOOD ORDERABLES Final Resul t [facility] [address] [phone] * (ABNORMAL) Basic Metabolic Panel (03/15/2025 6:13 AM EDT) Sodium 139 136 - 145 meq/L 03/15/2025 10:52 AM EDT [facility] Potassium 3.7 3.4 - 5.1 meq/L 03/15/2025 10:52 AM EDT [facility] CO2 20(L) 22 - 29 meq/L 03/15/2025 10:52 AM EDT [facility] Chloride 106 98 - 112 meq/L 03/15/2025 10:52 AM EDT [facility] Glucose 200(H) 82 - 115 mg/dL 03/15/2025 10:52 AM EDT [facility] BUN 27.9(H) 9.8 - 20.1 mg/dL 03/15/2025 10:52 AM EDT [facility] Creatinine 0.99 0.57 - 1.11 mg/dL 03/15/2025 10:52 AM EDT [facility] BUN/Creatinine 28(H) 8 - 20 03/15/2025 10:52 AM EDT [facility] Calcium 9.8 8.4 - 10.2 mg/dL 03/15/2025 10:52 AM EDT [facility] Anion Gap 17(H) 4 - 12 03/15/2025 10:52 AM EDT [facility] eGFR (mL/min/1.73m2) 65 >=60 mL/min/1.7 3m2 03/15/2025 10:52 AM EDT [facility] Osmolality Calc 288.6 mOsm/kg 10:52 AM EDT [facility] Blood Venipuncture / Unknown 03/15/2025 6:13 AM EDT 03/15/2025 6:28 AM EDT Narrative [facility] - 03/15/2025 10:52 AM EDT Specimen slightly hemolyzed us Ivis Sequeira MD LAB BLOOD ORDERABLES Final Resul t [facility] [address] [phone] * MRI BRA[employer] STEALTH W WO CONTRAST [...] Name ZAIN BEATTY Age 60 Patient Number [id number] Gender Female Race Unknown Ethnicity Corporate ID [id number] Height 62 Date of 1965 Weight 121 Accession Number [id number] BSA 1.54 m^2 Room Number 308 BMI 22.13 kg/m^2 Referring IVIS SEQUEIRA MD Interpreting KRIS GAN MD Physician Physician Director [employer] LORRAINE Davies Procedure Type of Study: Cerebral: [...] Name ZAIN BEATTY Age 60 Patient Number [id number] Gender Female Race Unknown Ethnicity Corporate ID [id number] Height 62 Date of 1965 Weight 121 Accession Number [id number] BSA 1.54 m^2 Room Number 308 BMI 22.13 kg/m^2 Referring IVIS SEQUEIRA MD Interpreting KRIS HANSON Physician Physician Director [employer] LORRAINE Davies Procedure Type of Study: Cerebral: [...] automated diff (03/14/2025 10:49 AM EDT) Pathologist [facility] WBC 8.3 4.0 - 10.0 K/ L 03/14/2025 11:31 AM EDT [facility] RBC 4.98 3.93 - 5.22 M/ L 03/14/2025 11:31 AM EDT [facility] Hemoglobin 15.8(H) 11.2 - 15.7 GM/DL 03/14/2025 11:31 AM EDT [facility] Hematocrit 46.1(H) 34.1 - 44.9 % 03/14/2025 11:31 AM EDT [facility] MCV 93 79 - 95 fL 03/14/2025 11:31 AM EDT [facility] MCH 31.7 25.6 - 32.2 pg 03/14/2025 11:31 AM EDT [facility] MCHC 34.3 32.2 - 35.5 GM/DL 03/14/2025 11:31 AM EDT [facility] RDW 12.3 11.7 - 14.4 % 03/14/2025 11:31 AM EDT [facility] Platelets 218 140 - 375 K/CU MM 03/14/2025 11:31 AM EDT [facility] MPV 9.3(L) 9.4 - 12.3 fL 03/14/2025 11:31 AM EDT [facility] % Neutros 68 34 - 71 % 03/14/2025 11:31 AM EDT [facility] % Lymphs 25 19 - 52 % 03/14/2025 11:31 AM EDT [facility] % Monos 6 5 - 13 % 03/14/2025 11:31 AM EDT [facility] % Eos 1 1 - 6 % 03/14/2025 11:31 AM EDT [facility] % Baso 1 0 - 1 % 03/14/2025 11:31 AM EDT [facility] NRBC Absolute <0.01 0 - 0.012 K/ul 03/14/2025 11:31 AM EDT [facility] # Neutros 5.58 1.56 - 6.13 K/ L 03/14/2025 11:31 AM EDT [facility] # Lymphs 2.04 1.18 - 3.74 K/ L 03/14/2025 11:31 AM EDT [facility] # Monos 0.52 0.24 - 0.86 K/ L 03/14/2025 11:31 AM EDT [facility] # Eos 0.04 0.04 - 0.36 K/ L 03/14/2025 11:31 AM EDT [facility] # Baso 0.05 0.01 - 0.08 K/ L 03/14/2025 11:31 AM EDT [facility] Immature Granulocytes-Re lative 0.40 0.01 - 0.43 % 03/14/2025 11:31 AM EDT [facility] # IG 0.03 0.00 - 0.03 K/uL 03/14/2025 11:31 AM EDT [facility] Blood Venipuncture / Unknown 03/14/2025 10:49 AM EDT 03/14/2025 11:27 AM EDT Narrative [facility] - 03/14/2025 11:31 AM EDT When [...] MD LAB BLOOD ORDERABLES Final Resul t [facility] [address] [phone] * (ABNORMAL) Comprehensive metabolic panel (03/14/2025 10:49 AM EDT) Sodium 144 136 - 145 meq/L 03/14/2025 11:52 AM EDT [facility] Potassium 3.3(L) 3.4 - 5.1 meq/L 03/14/2025 11:52 AM EDT [facility] Chloride 106 98 - 112 meq/L 03/14/2025 11:52 AM EDT [facility] CO2 21(L) 22 - 29 meq/L 03/14/2025 11:52 AM EDT [facility] Calcium 9.8 8.4 - 10.2 mg/dL 03/14/2025 11:52 AM EDT [facility] Glucose 114 82 - 115 mg/dL 03/14/2025 11:52 AM EDT [facility] BUN 21.3(H) 9.8 - 20.1 mg/dL 03/14/2025 11:52 AM EDT [facility] Creatinine 0.83 0.57 - 1.11 mg/dL 03/14/2025 11:52 AM EDT [facility] BUN/Creatinine 26(H) 8 - 20 03/14/2025 11:52 AM EDT [facility] eGFR (mL/min/1.73m2) 80 >=60 mL/min/1. 73m2 03/14/2025 11:52 AM EDT [facility] Albumin 3.4(L) 3.5 - 5.0 g/dL 03/14/2025 11:52 AM EDT [facility] Alkaline Phosphatase 99 40 - 150 U/L 03/14/2025 11:52 AM EDT [facility] ALT 24 <=34 U/L 03/14/2025 11:52 AM EDT [facility] Comment: ALT2 reagent used for testing does not contain P5P supplementation and therefore may miss ALT elevations in patients with B6 deficiency. This population may be as high as 10% in the [place], with risk factors including malabsorption, drug interactions, and alcoholic hepatitis. AST 34 11 - 34 U/L 03/14/2025 11:52 AM EDT [facility] Comment: AST2 reagent used for testing does not contain P5P supplementation and therefore may miss AST elevations in patients with B6 deficiency. This population may be as high as 10% in the [place], with risk factors including malabsorption, drug interactions, and alcoholic hepatitis. Total Bilirubin 0.6 0.2 - 1.2 mg/dL 03/14/2025 11:52 AM EDT [facility] Protein, Total 6.7 6.4 - 8.3 g/dL 03/14/2025 11:52 AM EDT [facility] Globulin 3.3 2.5 - 4.1 g/dL 03/14/2025 11:52 AM EDT [facility] Anion Gap 20(H) 4 - 12 03/14/2025 11:52 AM EDT [facility] A/G Ratio 1.0 0.7 - 1.9 03/14/2025 11:52 AM EDT [facility] Osmolality Calc 290.8 mOsm/kg 11:52 AM EDT [facility] Blood Venipuncture / Unknown 03/14/2025 10:49 AM EDT 03/14/2025 11:27 AM EDT us Ivis Sequeira MD LAB BLOOD ORDERABLES Final Resul t [facility] [address] [phone] from Last 3 Months Insurance [facility] M[facility] ADV DUAL COMPLETE MEDICAID OF [place] Advance Directives For more information, please contact: [phone] * Full Code (Latest Code Status on File) Date Activated Date Inactivated Comments 03/14/2025 1:04 AM 03/18/2025 3:17 PM Care Teams Package Sealer Machine Relationship Specialty Start Date End Date Vasu Gutierres MD [address] [address] [id number] PCP - General Family Medicine 03/18/25 Sweetie Hewitt PA [facility] [address] [place] [address] Physician Unitizer Physician Unitizer 03/18/25
--- OUTSIDE RECORDS SUMMARY | 2025-05-02 11:24 | XMS_ITS | Encounter Summary ---
Author Organization [facility] Address [address] [place] [address] Care Team Providers Care Fitter Mechanic Name Role Phone Vasu Gutierres MD Primary Care Provider +1- [phone] Reason for Visit * Reason Onset Date Comments Vyepti rescheduling 03/28/2025 Encounter Details Date Type Department Care Team ([facility] Contact Info) Description 03/28/2025 Telephone [facility] [address] [place] [phone] Michelle Monroe, PharmD Vyepti rescheduling Social History [...] their [facility]. For those patients receiving Infusion Services, the therapy plan will be d iscontinued. documented in this encounter Plan of Treatment Upcoming Encounters Date Type Department Care Team ([facility] Contact Info) Description 05/04/2025 12:30 PM EDT Office Visit [place] [facility] [address] [place] [address] Sweetie Hewitt PA [address] [place] [address] documented as of this encounter Visit Diagnoses Not on filedocumented in this encounter Additional Health Concerns Assessment Noted Time A fall risk assessment has been complete d for the patient 12/02/2024 10:04 AM EDT A Body Mass Index follow-up plan has been documented for the patient 12/02/2024 10:09 AM EDT documented as of this encounter Care Teams Fitter Mechanic Relationship Specialty Start Date End Date Vasu Gutireres MD [address] [place] [address] PCP - General 05/19/24 documented as of this encounter
--- OUTSIDE RECORDS SUMMARY | 2025-05-02 11:24 | XMS_ITS | Encounter Summary ---
Author Organization [facility] Address [address] [place] [address] Care Team Providers Care Attendance Officer Name Role Phone Vasu Gutierres MD Primary Care Provider +1- [phone] Reason for Visit * Reason Onset Date Comments HCN - Patient Message 02/10/2025 Reschedule Encounter Details Date Type Department Care Team (Late st Contact Info) Description 02/10/2025 Telephone [place] [facility] [address] [place] [address] Sweetie Hewitt, PA [address] [place] [address] HCN - Patient Message (Reschedule [...] for Call: Patient is calling back to [employer] appt. Best contact number and optimal time of day to reach caller: [phone] anytime Note: Please do not reply to [...] Reason for Call: Patient calling to r/s [employer] appt Best contact number and optimal time of day to reach caller: [phone] or [phone] Note: Please do not reply to this message. Follow-up communication and further actions as a result of this message need to be communicated with the patient directly, if the patient is not active onMyChart. If the patient is active on MyChart, they will receive notification of the communication/outcome via [employer]. documented in this encounter Plan of Treatment Upcoming Encounters Date Type Department Care Team (Late st Contact Info) Description 05/04/2025 12:30 PM EDT Office Visit [place] [facility] [address] [place] [address] Sweetie Hewitt PA [address] [place] [address] documented as of this encounter Visit Diagnoses Not on filedocumented in this encounter Additional Health Concerns Assessment Noted Time A fall risk assessment has been complete d for the patient 12/02/2024 10:04 AM EDT A Body Mass Index follow-up plan has been documented for the patient 12/02/2024 10:09 AM EDT documented as of this encounter Care Teams Attendance Officer Relationship Specialty Start Date End Date Vasu Gutierres MD [address] [place] [address] PCP - General 05/19/24 documented as of this encounter
--- OUTSIDE RECORDS SUMMARY | 2025-05-02 11:24 | XMS_ITS | Encounter Summary ---
Author Organization [employer] ([place], [place], [place], [place]) Address [address] [place] [address] Care Team Providers Care Traveling Engineer Name Role Phone [facility] Lidia, [facility] Primary Care Provider Encounter [...] Do you speak a language other than Mohawk at the rehabilitation institute? No 03/14/2025 Do you want help with [...] Description 05/24/2025 9:00 AM EST Office Visit [facility] Cardiology [address] [place] [address] Alee Gan MD [address] [facility] [address] [place] [id number] documented as of this encounter Visit Diagnoses Not on filedocumented in this encounter Care Teams Traveling Engineer Relationship Specialty Start Date End Date [facility] Connection, [facility] Connection Find-[facility] [place] [id number] PCP - General 03/14/25 03/17/25 documented as of this encounter
--- OUTSIDE RECORDS SUMMARY | 2025-05-02 11:25 | XMS_ITS | Encounter Summary ---
Author Organization [facility] Address [address] [place] [address] Care Team Providers Care Control Operator Name Role Phone Vasu Gutierres MD Primary Care Provider +1- [phone] Encounter Details Date Type Department Care Team (Late st Contact Info) Description 03/10/2025 Telephone [facility] [address] [facility] [address] [place] [address] Sophie Gentile APRN Social History Tobacco Use [...] an appointment for Vyepti infusion on 03/11/25. PIGGERY WORKER called patient to complete pre-infusion screening [...] Visit [place] [facility] [address] [place] [address] Sweetie Hewitt PA [address] [place] [address] documented as of this encounter Visit Diagnoses Not on filedocumented in this encounter Additional Health Concerns Assessment Noted Time A fall risk assessment has been complete d for the patient 12/02/2024 10:04 AM EDT A Body Mass Index follow-up plan has been documented for the patient 12/02/2024 10:09 AM EDT documented as of this encounter Care Teams Control Operator Relationship Specialty Start Date End Date Vasu Gutierres MD [address] [place] [address] PCP - General 05/19/24 documented as of this encounter
--- OUTSIDE RECORDS SUMMARY | 2025-05-02 11:25 | XMS_ITS | Clinical Summary ---
Author Organization [facility] Address [address] [place] [address] Phone Care Team Providers Care Salt Refiner Name Role Phone Gilmar COFFEY, Luigi Huitron [...] right tibia, subsequent encounter Cellulitis, foot, right [id number] (SNOMED CT) 09/08 Active 09/08 Jaylene Mays Cellulitis of lower limb Infection, local skin/subcuta neous tissue 638117516 (SNOMED CT) 09/08 Active 09/08 Jaylene Davon Localized infection of skin AND/OR subcutaneous tissue CKD III(document a or b) 673252818 (SNOMED CT) 09/08 Active 09/08 Jaylene Davon Chronic kidney disease stage 3A Acute renal failure with tubular necrosis 080493575617 101 (SNOMED CT) 09/08 Active 09/08 Jaylene Davon Acute renal failure due to tubular necrosis Elevation of levels of liver transaminase levels 402557556 (SNOMED CT) 09/08 Active 09/08 Jaylene Davon Elevated level of transaminase and lactic acid dehydrogenase Alkaline phosphatase, elevated 044181344 (SNOMED CT) 09/08 Active 09/08 Jaylene Mays Alkaline phosphatase above reference range Anemia due to acute blood loss 044296530 ([facility]) 09/08 Active 09/08 Jaylene Mays Acute posthemorrhagic anemia Anemia in CKD D63.1 (ICD-10-CM) 09/08 Active 09/08 Jaylene Mays Anemia in chronic kidney disease DM Type II E11.9 (ICD-10-CM) 09/08 Active 09/08 Jaylene Mays Type 2 diabetes mellitus without complications Benign Essential Hypertension [id number] ([facility]) 09/08 Active 09/08 Jaylene Mays Benign hypertension Medications Medication Instructions Start Date Stop Date Generic Name [facility] Provider [facility] 2G IV [id number] [place] 09/15 aztreonam recon binta [facility] RN Cubicin RF (daptomycin) recon binta Cubicin 650mg IV [id number] [place] 09/15 daptomycin [facility] RN NIFEDIPINE ER 30 MG [id number] Take 1 tablet by mouth once a day nifedipine 38156549860 Janay Manrique LISINOPRIL 40 MG TABS Take 1 tablet by mouth once a day lisinopril 41486519864 Janay Manrique QULIPTA 60 MG TABS Take 1 tablet by mouth atogepant 73330549275 Janay Manrique ACETAMINOPHEN 500 MG TABS Take 1 tablet by mouth every six hours as needed acetaminophen 80622117120 Janay Manrique insulin detemir (LEVEMIR) 100 UNIT/ML injection Inject 5 unit subcutaneously every morning as directed LEVEMIR Janay Manrique ACETAMINOPHEN 325 MG TABS Take 2 tablet by mouth every six hours as needed acetaminophen 31295803479 Janay Manrique HYDROXYZINE PAMOATE 25 MG CAPS Take 1 capsule by mouth three times a day as needed hydroxyzine pamoate 93920598038 Janay Manrique LEVETIRACETAM 500 MG TABS Take 1 tablet by mouth every twelve hours levetiracetam 49144455240 Janay Manrique ASPIRIN 325 MG TABS Take 1 tablet by mouth once a day aspirin 03600570403 Janay Manrique PEG 3350 17 GM PACK Take 17 gram by mouth once a day polyethylene glycol 3350 21957908610 Janay Manrique CYCLOBENZAPRINE HCL 5 MG TABS Take 1 tablet by mouth three times a day as needed cyclobenzaprine 23205160325 Janay Manrique ENOXAPARIN SODIUM 40 MG/0.4ML SOSY Inject 0.4 ml subcutaneously once a day as directed 11/02 enoxaparin 04598065262 Janay Manrique ATORVASTATIN CALCIUM 80 MG TABS Take 1 tablet by mouth every night atorvastatin 65412360254 Janay Manrique PROCHLORPERAZINE EDISYLATE 10 MG/2ML SOLN 2 ml every eight hours as needed prochlorperazine edisylate 50367929683 Janay Manrique INSULIN LISPRO 100 UNIT/ML SOLN Inject 2-7 unit subcutaneously four times a day as directed insulin lispro 04095188436 Janay Manrique SENNOSIDES-DOCUSAT E SODIUM 8.6-50 MG TABS Take 2 tablet by mouth twice a day as needed sennosides-docusa te sodium 60526902447 Janay Manrique PROMETHAZINE HCL 25 MG TABS Take 1 tablet by mouth every six hours as needed promethazine 03280781631 Janay Manrique Valbenazine Tosylate 80 MG capsule Take 1 capsule by mouth once a day Valbenazine Tosylate 80 MG capsule Janay Manrique TRAZODONE HCL 150 MG TABS Take 3 tablet by mouth every night trazodone 79362172832 Janay Manrique DOCUSATE SODIUM 100 MG CAPS Take 1 capsule by mouth twice a day 09/18 docusate sodium 78885589847 Janay Manrique OMEPRAZOLE 40 MG CPDR Take 1 capsule by mouth once a day omeprazole 56098991930 Janay Burton CETIRIZINE HCL 10 MG TABS Take 1 tablet by mouth once a day cetirizine 28474465074 Janay Manrique MELATONIN 5 MG TABS Take 1 tablet by mouth every night as needed melatonin 04562381581 Halcomfort Burton LIDOCAINE PAIN RELIEF MAX ST 4 % PTCH Place 1 patch once a day as directed lidocaine 64652431015 Janay Manrique DESVENLAFAXINE SUCCINATE ER 100 MG [id number] Take 2 tablet by mouth once a day desvenlafaxine succinate 54552110646 Janay Manrique DOXYCYCLINE HYCLATE 100 MG CAPS Take 1 capsule by mouth twice a day 09/28 doxycycline hyclate 41719348124 Janay Burton ALENDRONATE SODIUM 70 MG TABS Take 1 tablet by mouth once a week alendronate 42408392737 Janay Manrique Cubicin RF (daptomycin) recon soln Cubicin 650mg [id number]15 daptomycin [facility] RN aztreonam recon solmeseret Aztreonam 2G [id number] 09/15 aztreonam recon soln [facility] RN Valbenazine Tosylate 80 MG capsule Take 1 capsule by mouth Daily. 09/15 Valbenazine Tosylate 80 MG capsule QIE qieuser TRAZODONE HCL 150 MG TABS Take 3 tablets by mouth Every Night. 09/15 trazodone 29206002849 QIE qieuser SENNOSIDES-DOCUSAT E SODIUM 8.6-50 MG TABS Take 2 tablets by mouth 2 (Two) Times a Day As Needed for Constipation. sennosides-docusa te sodium 57666397505 QIE qieuser PROMETHAZINE HCL 25 MG TABS Take 1 tablet by mouth Every 6 (Six) Hours As Needed for Nausea or Vomiting. 09/15 promethazine 86301077640 QIE qieuser PROCHLORPERAZINE EDISYLATE 10 MG/2ML SOLN Infuse 2 mL into a venous catheter Every 8 (Eight) Hours As Needed (headache/migrai ne (give with iv benadryl)). 09/15 prochlorperazine edisylate 93333471944 QIE qieuser PEG 3350 17 GM PACK Take 17 g by mouth Daily. 09/15 polyethylene glycol 3350 33105044613 QIE qieuser ONETOUCH ULTRA STRP null blood sugar diagnostic 89798400301 QIE qieuser OMEPRAZOLE 40 MG CPDR Take 1 capsule by mouth Daily. 09/15 omeprazole 66290251908 QIE qieuser NIFEDIPINE ER 30 MG [id number] Take 1 tablet by mouth Daily. 09/15 nifedipine 85521367795 QIE qieuser NICOTINE STEP 1 21 MG/24HR PT24 null nicotine 59496987328 QIE qieuser MELATONIN 5 MG TABS Take 1 tablet by mouth At Night As Needed (insomnia). 09/15 melatonin 84757213654 QIE qieuser LISINOPRIL 40 MG TABS Take 1 tablet by mouth Daily. 09/15 lisinopril 93385709383 QIE qieuser LIDOCAINE PAIN RELIEF MAX ST 4 % PTCH Place 1 patch on the skin as directed by provider Daily. Remove & Discard patch within 12 hours or as directed by 09/15 lidocaine 23155333420 QIE qieuser LEVETIRACETAM 500 MG TABS Take 1 tablet by mouth Every 12 (Twelve) Hours. 09/15 levetiracetam 59480986499 QIE qieuser ONETOUCH DELICA PLUS [id number] null lancets 09497569785 QIE qieuser INSULIN LISPRO 100 UNIT/ML SOLN Inject 2-7 Units under the skin into the appropriate area as directed 4 (Four) Times a Day Before Meals & at Bedtime. 09/15 insulin lispro 20668269826 QIE qieuser insulin detemir (LEVEMIR) 100 UNIT/ML injection Inject 5 Units under the skin into the appropriate area as directed Every Morning. 09/15 LEVEMIR QIE qieuser HYDROXYZINE PAMOATE 25 MG CAPS Take 1 capsule by mouth 3 (Three) Times a Day As Needed for Itching. 01/18 hydroxyzine pamoate 40716923882 QIE qieuser GABAPENTIN 400 MG CAPS Take 2 capsules by mouth Every 8 (Eight) Hours for 4 days. 09/08 gabapentin 32324834945 QIE qieuser ENOXAPARIN SODIUM 40 MG/0.4ML SOSY Inject 0.4 mL under the skin into the appropriate area as directed Daily for 60 days. 11/02 enoxaparin 05893863119 QIE qieuser DOXYCYCLINE HYCLATE 100 MG CAPS Take 1 capsule by mouth 2 (Two) Times a Day for 14 days. 09/28 doxycycline hyclate 34174138797 QIE qieuser DOCUSATE SODIUM 100 MG CAPS Take 1 capsule by mouth 2 (Two) Times a Day for 15 days. 09/18 docusate sodium 96764421170 QIE qieuser DESVENLAFAXINE SUCCINATE ER 100 MG [id number] Take 2 tablets by mouth Daily. 09/15 desvenlafaxine succinate 94368976091 QIE qieuser CYCLOBENZAPRINE HCL 5 MG TABS Take 1 tablet by mouth 3 (Three) Times a Day As Needed for Muscle Spasms. 01/18 cyclobenzaprine 51156612795 QIE qieuser CETIRIZINE HCL 10 MG TABS Take 1 tablet by mouth Daily. 09/15 cetirizine 50565255421 QIE qieuser ANTACID CALCIUM 500 MG CHEW null calcium carbonate 01613266963 QIE qieuser BD PEN NEEDLE MICRO ULTRAFINE 32G X 6 MM null pen needle, diabetic 37845729782 QIE qieuser ATORVASTATIN CALCIUM 80 MG TABS Take 1 tablet by mouth Every Night. 09/15 atorvastatin 67923835721 QIE qieuser QULIPTA 60 MG TABS Take 1 tablet by mouth. 09/15 atogepant 36447731815 QIE qieuser ASPIRIN 325 MG TABS Take 1 tablet by mouth Daily. 09/15 aspirin 90586558548 QIE qieuser ALENDRONATE SODIUM 70 MG TABS Take 1 tablet by mouth Every 7 (Seven) Days. 09/15 alendronate 05414616774 QIE qieuser ACETAMINOPHEN 500 MG TABS Take 1 tablet by mouth Every 6 (Six) Hours As Needed for Mild Pain. 09/15 acetaminophen 53110285125 QIE qieuser ACETAMINOPHEN 325 MG TABS Take 2 tablets by mouth Every 6 (Six) Hours As Needed for Mild Pain. 09/15 acetaminophen 65420797451 QIE qieuser Medications Administered No information available. [...] Procedures Code Procedure Name Date Entry Date N5550c,[id number] CBC with Differential 2023 CPT-73569 C- reactive protein CPT-sl STAT [facility] V6711i,[id number] CBC with Differential 2023 CPT-71596 C- reactive protein [id number], [id number] CPK CPT-46644 Sedimentation Rate (ESR) 202 10/20/22 CPT-58380 CMP Vital Signs Date Name Value Unit [...]
--- OUTSIDE RECORDS SUMMARY | 2025-05-02 11:25 | XMS_ITS | Encounter Summary ---
Author Organization [facility] Address [address] [place] [address] Care Team Providers Care Hedis Registered Nurse Rn Name Role Phone Vasu Gutierres MD Primary Care Provider Encounter Details Date Type Department Care Team (Late st Contact Info) Description 02/11/2024 Telephone [facility] [address] [facility] [address] [place] [address] Danis Chaidez, PT [address] [facility] [address] [place], [place] [address] Social History Tobacco Use Types Packs/Day Years Used Date Smoking Tobacco: Former Cigarettes Q uit: 07/17/2023 Passive Smoke Exposure: Current Smokeless Tobacco: Never Alcohol Use Standard Drinks/Week Comments Never 0 (1 standard drink = 0.6 oz pur e alcohol) [facility] Utilities Answer Date Recorded In the past 12 months has [employer], gas, oil, or water [employer] threatened to shut off services in your [...] and heating? Not hard at all 08/25/2023 [facility] of Occupat ional Health - Occupational Stress [...] Description 10/07/2025 11:00 AM EDT Office Visit [facility] [address] [place] [address] Cheo Fu MD [address] [facility] [address] [place] [address] documented as of this encounter Visit Diagnoses Not on filedocumented in this encounter Additional Health Concerns Infection Onset Date Last Indicated Resolved Time COVID (rule out) 09/02/2024 09/02/2024 09/02/2024 10:52 AM EST Influenza 09/02/2024 09/02/2024 10/02/2024 9:08 PM EDT documented as of this encounter Care Teams Hedis Registered Nurse Rn Relationship Specialty Start Date End Date Vasu Gutierres MD [address] [facility] [address] [place] [address] PCP - General Family Medicine 03/05/23 documented as of this encounter
--- OUTSIDE RECORDS SUMMARY | 2025-05-02 11:25 | XMS_ITS | Encounter Summary ---
Author Organization [facility] Address [address] [place] [address] Care Team Providers Care Allergy Specialist Name Role Phone Vasu Gutierres MD Primary Care Provider +1- [phone] Encounter Details Date Type Department Care Team (Late st Contact Info) Description 03/08/2025 Telephone [facility] [address] [facility] [address] [place] [address] Sophie Gentile APRN Social History Tobacco Use [...] an appointment for Vyepti infusion on 03/09/25. ARCHITECTURAL DESIGN PROFESSOR called patient to complete pre-infusion screening questions. Unable to speak with patient. Left voicemail to remind patient of appt date, time, and location. Duration of phone call: 1 minute Sophei Gentile APRN [facility] documented in this encounter Plan of Treatment Upcoming Encounters Date Type Department Care Team (Late st Contact Info) Description 05/04/2025 12:30 PM EDT Office Visit [place] [facility] [address] [place] [address] Sweetie Hewitt PA [address] [place] [address] documented as of this encounter Visit Diagnoses Not on filedocumented in this encounter Additional Health Concerns Assessment Noted Time A fall risk assessment has been complete d for the patient 12/02/2024 10:04 AM EDT A Body Mass Index follow-up plan has been documented for the patient 12/02/2024 10:09 AM EDT documented as of this encounter Care Teams Allergy Specialist Relationship Specialty Start Date End Date Vasu Gutierres MD [address] [place] [address] PCP - General 05/19/24 documented as of this encounter
--- OUTSIDE RECORDS SUMMARY | 2025-05-02 11:26 | XMS_ITS | Encounter Summary ---
Author Organization Healthcare Address [address] [place] [address] Care Team Providers Care Gynecology Teacher Name Role Phone Vasu Gutierres MD Primary Care Provider +1- [phone] Encounter Details Date Type Department Care Team (Late Contact Info) Description 04/12/2025 Orders Only [facility] Infusion [address] [place] [address] Jonna Olivo, RN [facility] Social History Tobacco Use Types Packs/Day [...] Visit [place] [facility] [address] [place] [address] Sweetie Hewitt, MECHE [address] [place] [address] documented as of this encounter Visit Diagnoses Not on filedocumented in this encounter Additional Health Concerns Assessment Noted Time A fall risk assessment has been complete d for the patient 12/02/2024 10:04 AM EDT A Body Mass Index follow-up plan has been documented for the patient 12/02/2024 10:09 AM EDT documented as of this encounter Care Teams Gynecology Teacher Relationship Specialty Start Date End Date Vasu Gutierres MD [address] [place] [address] PCP - General 05/19/24 documented as of this encounter
--- OUTSIDE RECORDS SUMMARY | 2025-05-02 11:26 | XMS_ITS | Clinical Summary ---
Author Organization [facility] Address [address] [place] [address] Care Team Providers Care Low Raw Sugar Cutter Name Role Phone Vasu Gutierres MD Primary Care Provider +1- [phone] Allergies Active Allergy Reactions Criticality Noted Date [...] (one) time each day. Active Continuous Glucose Plastic Surgery Coordinator (MonesbatStyle John 14 Day Breda) device 3 Active Continuous Glucose Sensor (FreeStyle John 2 Sensor) [facility] USE DIRECTED (CHANGE EVERY 14 [...] mouth 3 (three) times a day. Active Hot DotTouch Ultra Test test strip USE TO TEST 4 TIMES DAILY DIRECTED. Active hydrOXYzine pamoate (Vistaril) 25 MG capsule 4 Active Levemir FlexPen 100 UNIT/ML injection pen 4 Active BD Pen Needle Micro U/F 32G X 6 MM misc 2 (two) times a day. as directed 4 Active Lancets (OneTouch Delica Plus [id number]) misc 4 (four) times a day. 4 [...] Department Care Team Description 04/12/2025 Orders Only [facility] [address] [place] [address] Jonna Olivo RN 03/28/2025 Telephone [facility] [address] [place] [address] Michelle Monroe, PharmD Vyepti rescheduling 03/10/2025 Telephone [facility] [address] [facility] [address] [place] [address] Sophie Gentile APRN 03/08/2025 Telephone [facility] [address] [place] [address] SeferinoSophie, HAY STACKER OPERATOR 02/23/2025 Telephone [facility] [address] [place] [address] Nilda Love, HAY STACKER OPERATOR 02/10/2025 Telephone [place] [facility] [address] [place] [address] Sweetie Hewitt, MECHE [facility] - [...] Visit [place] [facility] [address] [place] [address] Sweetie Hewitt PA [address] [place] [address] Health Maintenance Due Date Last [...] of 2 - PCV) 10/25/2020 10/26/2019, 04/18/2014 [id number] Vaccine (3 - season) 2025 05/26/2021, 10/21/2020 [...] to complete this topic Insurance [place] [address] [place] MEDICARE Care Teams Low Raw Sugar Cutter Relationship Specialty Start Date End Date Vasu Gutierres MD [address] [facility] [place] [address] [facility] - General 05/19/24
--- OUTSIDE RECORDS SUMMARY | 2025-05-02 11:26 | XMS_ITS | Encounter Summary ---
Author Organization Healthcare Address [address] [place] [address] Care Team Providers Care Fine Grade Operator Name Role Phone Pcp, No Primary Care Provider Vasu Be MD Primary Care Provider +1- [phone] Reason for Referral * Consultation (Routine) - Closed Specialty Diagnoses / Procedures Referred By Contac t Referred To Contact Neurology Diagnoses Chronic intractable headache, unspecified headache type Tardive dyskinesia History of drug abuse History of stroke Major depression in remission (CMS/[facility]) Mira Dolan MD [address] [place] [address] Phone: tel: fax: Luis Armando Weeks MD [address] [facility] [address] [place] [address] Phone: tel: fax: Referral ID Status Reason Start Date Expiration Date V isits Requested Visits Authorized [id number] Closed Specialty Services Required 03/05/2022 09/04/2023 1 1 Encounter Details Date Type Department Care Team (Late st Contact Info) Description 03/05/2022 Community [facility] [address] [place] [address] Mira Dolan MD [address] [facility] [address] [place] [address] [...] Visit [place] [facility] [address] [place] [address] Sweetie Hewitt PA [address] [place] [address] Scheduled Referrals Name Type Priority [...] remission documented in this encounter Care Teams Fine Grade Operator Relationship Specialty Start Date End Date Pcp, Radha [address] [place] [address] PCP - General Family Medicine 06/04/23 05/18/24 Vasu Gutierres MD [address] [place] [address] PCP - General 05/19/24 documented as of this encounter
--- OUTSIDE RECORDS SUMMARY | 2025-05-02 11:26 | XMS_ITS | Clinical Summary ---
Author Organization [facility] Address [address] [place] [address] Care Team Providers Care Commercial Intelligence Manager Name Role Phone Vasu Gutierres MD Primary [...] Needle Micro U/F 32G X 6 MM [facility] Active Lancets (OneTouch Delica Plus [id number]) [facility] 3 Active nicotine (NICODERM CQ) 21 MG/24HR [...] drink = 0.6 oz pur e alcohol) [facility] Utilities Answer Date Recorded In the past 12 months has [employer], gas, oil, or water [employer] threatened to shut off services in your [...] and heating? Not hard at all 08/25/2023 [employer] [place] of Occupat ional Health - Occupational Stress [...] Description 10/07/2025 11:00 AM EDT Office Visit [facility]IC[facility] [address] [place] [address] Cheo Fu MD [address] [address] Health Maintenance Due Date Last Done Comments [...] 07/10/2027 017 Medical Devices Implanted Type Area High Risk Case Manager Device Identifier Shelf Expiration Date Model / Serial / Lot Scrw Yunior Lp Ss 3.5x32mm - [id number] Implanted:Qty: 1 on 07/22/2023 by Cheo Fu MD at [facility] Implant Right: Ankle ARTHREX [id number] / / Plt Hk Medl Ss 5h - [id number] Implanted:Qty: 1 on 07/22/2023 by Cheo Fu MD at [facility] Implant Right: Ankle ARTHREX [id number] / / Scrw Yunior Lp Ss 3.5x26mm - [id number] Implanted:Qty: 1 on 07/22/2023 by Cheo Fu MD at [facility] Implant Right: Ankle ARTHREX [id number] / / Scrw Josiah Lp Thrd/Shrt Ss 4x42mm - [id number] Implanted:Qty: 1 on 07/22/2023 by Cheo Fu MD at [facility] Implant Right: Ankle ARTHREX [id number] / / Plt Dist Ankl Lk 6h 104mm Rt - [id number] Implanted:Qty: 1 on 07/22/2023 by Cheo Fu MD at [facility] Implant Right: Ankle ARTHREX [id number] / / Scrw Yunior Lp Ss 3.5x50mm - [id number] Implanted:Qty: 1 on 07/22/2023 by Cheo Fu MD at [facility] Implant Right: Ankle ARTHREX [id number] / / Scrw Yunior Lp Ss 3.5x42mm - [id number] Implanted:Qty: 1 on 07/22/2023 by Cheo Fu MD at [facility] Implant Right: Ankle ARTHREX [id number] / / Scrw Compr Kreulock Lk Ful/Thrd Ss 2.7x12mm - [id number] Implanted:Qty: 1 on 07/22/2023 by Cheo Fu MD at [facility] Implant Right: Ankle ARTHREX [id number] / / Scrw Compr Kreulock Lk Ful/Thrd Ss 2.7x16mm - [id number] Implanted:Qty: 3 on 07/22/2023 by Cheo Fu MD at [facility] Implant Right: Ankle ARTHREX [id number] / / Scrw Yunior Lp Ss 3.5x12mm - [id number] Implanted:Qty: 3 on 07/22/2023 by Cheo Fu MD at [facility] Implant Right: Ankle ARTHREX [id number] / / Gw Troc Tp 1.90j208zg - [id number] Implanted:Qty: 2 on 07/22/2023 by Cheo Fu MD at [facility] Implant Right: Ankle ARTHREX [id number] / / Explanted Type Area High Risk Case Manager Device Identifier Shelf Expiration Date Model / Serial / Lot Scrw Yunior Lp Ss 2.7x16mm - [id number] Explanted:Qty: 1 on 07/22/2023 by Cheo Fu MD at [facility] Implant Right: Ankle ARTHREX [id number] / / Scrw Yunior Lp Ss 2.7x18mm - [id number] Explanted:Qty: 1 on 07/22/2023 by Cheo Fu MD at [facility] Implant Right: Ankle ARTHREX [id number] / / Procedures Procedure Name Priority Date/Time [...] Hemoglobin A1c (12/30/2023 11:38 AM EDT) Pathologist [facility] Hemoglobin A1C 7.90(H) 4.80 - 5.60 % 12/30/2023 2:09 PM EDT [facility] Blood Venipuncture / Unknown 12/30/2023 11:38 AM EDT 12/30/2023 11:39 AM EDT Narrative [facility] - 12/30/2023 2:09 PM EDT Hemoglobin A1C Ranges: Increased Risk for Diabetes 5.7% to 6.4% Diabetes >= 6.5% Diabetic Goal < 7.0% Vasu Gutierres MD LAB BLOOD ORDERABLES F inal Result [facility]
[address] [place] [address], * (ABNORMAL) Lipid Panel (12/30/2023 11:38 AM EDT) Total Cholesterol 145 0 - 200 mg/dL 12/30/2023 7:13 PM EDT [facility] Triglycerides 86 0 - 150 mg/dL 12/30/2023 7:13 PM EDT [facility] HDL Cholesterol 62(H) 40 - 60 mg/dL 12/30/2023 7:13 PM EDT [facility] LDL Cholesterol 67 0 - 100 mg/dL 12/30/2023 7:13 PM EDT [facility] VLDL Cholesterol 16 5 - 40 mg/dL 12/30/2023 7:13 PM EDT [facility] LDL/HDL Ratio 1.06 12/30/2023 7:13 PM EDT [facility] Blood Venipuncture / Unknown 12/30/2023 11:38 AM EDT 12/30/2023 11:39 AM EDT Narrative [facility] - 12/30/2023 7:13 PM EDT Cholesterol [...] MD LAB BLOOD ORDERABLES F inal Result [facility]
[address] [place] [address], [place] [phone] from Last 3 Months or Most Recently Relevant to Health Maintenance Insurance [facility] MEDICARE ADVANTAGE SNP PPO Advance Directives [...] or is breathing): Full Support Care Teams Commercial Intelligence Manager Relationship Specialty Start Date End Date Vasu Gutierres MD [address] [place] [address] PCP - General Family Medicine 03/05/23
== END 2025-04-21 23:59 | disposition home or self-care (01) ==
PROVIDERS: Internal Medicine Adolescent Medicine; Student in an Organized Health Care Education/Training Program; PCP Family Medicine; Visit Provider Family Medicine
DX: E03.9 Hypothyroidism, unspecified (principal); J44.9 Chronic obstructive pulmonary disease, unspecified; I10 Essential (primary) hypertension; E11.65 Type 2 diabetes mellitus with hyperglycemia; G24.01 Drug induced subacute dyskinesia
CPT/HCPCS: 80053; 80177; 83036; 84439; 84443; 85025

== ENCOUNTER 2025-04-26 08:03 | Outpatient (CLI) | payer MEDICARE, SELFPAY ==
--- OUTSIDE RECORDS SUMMARY | 2025-03-14 01:17 | XMS_ITS | Encounter Summary ---
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 9:45 PM EDT Narrative [facility] - 03/17/2025 9:45 PM EDT [employer] ID is - [id number] us Ivis Sequeira MD POINT OF CARE TEST ORDERABLES Fi nal Result Performing Organization Address [facility] Number [facility] [address] [phone] * (ABNORMAL) Glucose, Nova Meter (03/17/2025 5:54 PM EDT) POC-GLUCOSE 376(H) 70 - 110 mg/dL 03/17/2025 5:55 PM EDT [facility] Comment: In the event of poor peripheral blood flow, venous or arterial blood should be used due to the potential of erroneous results. Notified Nurse RBV [employer] [id number] 03/17/2025 5:55 PM EDT [facility] Blood WHOLE BLOOD / Unknown 03/17/2025 5:54 PM EDT 03/17/2025 5:55 PM EDT Narrative [facility] - 03/17/2025 5:55 PM EDT [employer] ID is - [id number] us Ivis Sequeira MD POINT OF CARE TEST ORDERABLES Fi nal Result Performing Organization Address [facility] Co de Phone Number [facility] [address] [phone] * (ABNORMAL) Glucose, Nova Meter (03/17/2025 11:58 AM EDT) POC-GLUCOSE 213(H) 70 - 110 mg/dL 03/17/2025 11:59 AM EDT [facility] Comment: In the event of poor peripheral blood flow, venous or arterial blood should be used due to the potential of erroneous results. Notified Nurse RBV [employer] Manager [id number] 03/17/2025 11:59 AM EDT [facility] Blood WHOLE BLOOD / Unknown 03/17/2025 11:58 AM EDT 03/17/2025 11:59 AM EDT Narrative [facility] - 03/17/2025 11:59 AM EDT [employer] ID is - [id number] Ivis Sequeira MD POINT OF CARE TEST ORDERABLES Fi nal Result Performing Organization Address [facility] Number [facility] [address] [phone] * (ABNORMAL) Glucose, Nova Meter (03/17/2025 5:56 AM EDT) POC-GLUCOSE 209(H) 70 - 110 mg/dL 03/17/2025 6:01 AM EDT [facility] Comment: In the event of poor peripheral blood flow, venous or arterial blood should be used due to the potential of erroneous results. Notified Nurse RBV [employer] [phone] 03/17/2025 6:01 AM EDT [facility] Blood WHOLE BLOOD / Unknown 03/17/2025 5:56 AM EDT 03/17/2025 6:01 AM EDT Narrative [facility] - 03/17/2025 6:01 AM EDT [employer] Manager ID is - [id number] us Ivis Sequeira MD POINT OF CARE TEST ORDERABLES Fi nal Result Performing Organization Address [facility] Co de Phone Number [facility] [address] [phone] * (ABNORMAL) Glucose, Nova Meter (03/17/2025 12:20 AM EDT) [facility] POC-GLUCOSE 242(H) 70 - 110 mg/dL 03/17/2025 12:21 AM EDT [facility] Comment: In the event of poor peripheral blood flow, venous or arterial blood should be used due to the potential of erroneous results. Notified Nurse RBV [employer] [id number] 03/17/2025 12:21 AM EDT [facility] Blood WHOLE BLOOD / Unknown 03/17/2025 12:20 AM EDT 03/17/2025 12:21 AM EDT Narrative [facility] - 03/17/2025 12:21 AM EDT [employer] Manager ID is - [id number] Ivis Sequeira MD POINT OF CARE TEST ORDERABLES Fi nal Result Performing Organization Address [facility] Number [facility] [address] [phone] * (ABNORMAL) Glucose, Nova Meter (03/16/2025 8:53 PM EDT) [facility] POC-GLUCOSE 249(H) 70 - 110 mg/dL 03/16/2025 8:56 PM EDT [facility] Comment: In the event of poor peripheral blood flow, venous or arterial blood should be used due to the potential of erroneous results. Notified Nurse RBV [employer] Manager [id number] 03/16/2025 8:56 PM EDT [facility] Blood WHOLE BLOOD / Unknown 03/16/2025 8:53 PM EDT 03/16/2025 8:56 PM EDT Narrative [facility] - 03/16/2025 8:56 PM EDT [employer] Manager ID is - [id number] Ivis Sequeira MD POINT OF CARE TEST ORDERABLES Fi nal Result Performing Organization Address [facility] Co Formerly [facility] Number [facility] [address] [phone] * (ABNORMAL) Glucose, Nova Meter (03/16/2025 3:32 PM EDT) POC-GLUCOSE 303(H) 70 - 110 mg/dL 03/16/2025 3:33 PM EDT [facility] Comment: In the event of poor peripheral blood flow, venous or arterial blood should be used due to the potential of erroneous results. Protocols Followed [employer] Manager [id number] 03/16/2025 3:33 PM EDT [facility] Blood WHOLE BLOOD / Unknown 03/16/2025 3:32 PM EDT 03/16/2025 3:33 PM EDT Narrative [facility] - 03/16/2025 3:33 PM EDT [employer] Manager ID is - [id number] Ivis Sequeira MD POINT OF CARE TEST ORDERABLES Fi nal Result Performing Organization Address [facility] LABORATORY [address] [phone] * (ABNORMAL) Glucose, Nova Meter (03/16/2025 11:39 AM EDT) [facility] POC-GLUCOSE 324(H) 70 - 110 mg/dL 03/16/2025 10:00 PM EDT [facility] Comment: In the event of poor peripheral blood flow, venous or arterial blood should be used due to the potential of erroneous results. Protocols Followed [employer] [id number] 03/16/2025 10:00 PM EDT [facility] Blood WHOLE BLOOD / Unknown 03/16/2025 11:39 AM EDT 03/16/2025 10:00 PM EDT Narrative [facility] - 03/16/2025 10:00 PM EDT [employer] Manager ID is - [id number] us Ivis Sequeira MD POINT OF CARE TEST ORDERABLES Fi nal Result Performing Organization Address [facility] Co de Phone Number [facility] [address] [phone] * (ABNORMAL) Glucose, Nova Meter (03/16/2025 5:47 AM EDT) Pathologist [facility] POC-GLUCOSE 216(H) 70 - 110 mg/dL 03/16/2025 5:48 AM EDT [facility] Comment: In the event of poor peripheral blood flow, venous or arterial blood should be used due to the potential of erroneous results. Notified Nurse RBV [employer] [id number] 03/16/2025 5:48 AM EDT [facility] Blood WHOLE BLOOD / Unknown 03/16/2025 5:47 AM EDT 03/16/2025 5:48 AM EDT Narrative [facility] - 03/16/2025 5:48 AM EDT [employer] Manager ID is - [id number] Ivis Sequeira MD POINT OF CARE TEST ORDERABLES Fi nal Result Performing Organization Address [facility] Number [facility] [address] [phone] * (ABNORMAL) Glucose, Nova Meter (03/15/2025 8:00 PM EDT) POC-GLUCOSE 329(H) 70 - 110 mg/dL 03/15/2025 8:01 PM EDT [facility] Comment: In the event of poor peripheral blood flow, venous or arterial blood should be used due to the potential of erroneous results. Notified Nurse RBV [employer] [id number] 03/15/2025 8:01 PM EDT [facility] Blood WHOLE BLOOD / Unknown 03/15/2025 8:00 PM EDT 03/15/2025 8:01 PM EDT Narrative [facility] - 03/15/2025 8:01 PM EDT [employer] Manager ID is - [id number] Ivis Sequeira MD POINT OF CARE TEST ORDERABLES Fi nal Result Performing Organization Address [facility] Co de Phone Number [facility] [address] [place] [address], [facility] [phone] * (ABNORMAL) Glucose, Nova Meter (03/15/2025 11:29 AM EDT) POC-GLUCOSE 249(H) 70 - 110 mg/dL 03/15/2025 11:30 AM EDT [facility] Comment: In the event of poor peripheral blood flow, venous or arterial blood should be used due to the potential of erroneous results. Notified Nurse RBV [employer] [id number] 03/15/2025 11:30 AM EDT [facility] Blood WHOLE BLOOD / Unknown 03/15/2025 11:29 AM EDT 03/15/2025 11:30 AM EDT [facility]AT[facility] - 03/15/2025 11:30 AM EDT [employer] Manager ID is - [id number] Ivis Sequeira MD POINT OF CARE TEST ORDERABLES Fi nal Result [facility] [address] [phone] * Magnesium (03/15/2025 6:13 AM EDT) Magnesium 1.6 1.6 - 2.6 mg/dL 03/15/2025 10:53 AM EDT [facility] Blood Venipuncture / Unknown 03/15/2025 6:13 AM EDT 03/15/2025 6:28 AM EDT [facility]AT[facility] - 03/15/2025 10:53 AM EDT Specimen slightly hemolyzed Ivis Sequeira MD LAB BLOOD ORDERABLES Final Resul t [facility] [address] [phone] * (ABNORMAL) Basic Metabolic Panel (03/15/2025 6:13 AM EDT) Sodium 139 136 - 145 meq/L 03/15/2025 10:52 AM EDT [facility] Potassium 3.7 3.4 - 5.1 meq/L 03/15/2025 10:52 AM EDT [facility] CO2 20(L) 22 - 29 meq/L 03/15/2025 10:52 AM EDT [facility] Chloride 106 98 - 112 meq/L 03/15/2025 10:52 AM EDT [facility] Glucose 200(H) 82 - 115 mg/dL 03/15/2025 10:52 AM EDT [facility] BUN 27.9(H) 9.8 - 20.1 mg/dL 03/15/2025 10:52 AM EDT [facility] Creatinine 0.99 0.57 - 1.11 mg/dL 03/15/2025 10:52 AM EDT [facility] BUN/Creatinine 28(H) 8 - 20 03/15/2025 10:52 AM EDT [facility] Calcium 9.8 8.4 - 10.2 mg/dL 03/15/2025 10:52 AM EDT [facility] Anion Gap 17(H) 4 - 12 03/15/2025 10:52 AM EDT [facility] eGFR (mL/min/1.73m2) 65 >=60 mL/min/1.7 3m2 03/15/2025 10:52 AM EDT [facility] Osmolality Calc 288.6 mOsm/kg 10:52 AM EDT [facility] Blood Venipuncture / Unknown 03/15/2025 6:13 AM EDT 03/15/2025 6:28 AM EDT Narrative [facility] - 03/15/2025 10:52 AM EDT Specimen slightly hemolyzed us Ivis Sequeira MD LAB BLOOD ORDERABLES Final Resul t [facility] [address] [phone] * Lipid panel (03/15/2025 6:13 AM EDT) Triglycerides 100 <=149 mg/dL 03/15/2025 7:22 AM EDT [facility] Comment: Normal: < 150 mg/dL Borderline High: 150 to 199 mg/dL High: 200 to 499 mg/dL Very High: >/= 500 mg/dL Cholesterol 111 100 - 199 mg/dL 03/15/2025 7:22 AM EDT [facility] Comment: Child: Desirable: < 170 mg/dL Borderline: 170 to 199 mg/dL High: >/= 200 mg/dL Adult: Desirable: < 200 mg/dL Borderline: 200 to 239 mg/dL High: >/= 240 mg/dL HDL Cholesterol 43 See Comment mg/dL 03/15/2025 7:22 AM EDT [facility] Comment: Major risk factor for heart disease: < 40 mg/dL Negative risk factor for heart disease: >/= 60 mg/dL LDL Cholesterol, Calculated 48 0 - 100 mg/dL 03/15/2025 7:22 AM EDT [facility] Comment: Unable to calculate Optimal: < 100 mg/dL Near or above optimal: 100 to 129 mg/dL Borderline high: 130 to 159 mg/dL High: 160 to 189 mg/dL Very high: >/= 190 mg/dL Based on AHA/NCEP Guidelines LDl/HDL Ratio 1 0 - 4 03/15/2025 7:22 AM EDT [facility] Comment:Unable to calculate. Cholesterol/HDL ratio 2.6 0.0 - 5.0 mg/dL 03/15/2025 7:22 AM EDT [facility] VLDL Cholesterol 20 5 - 40 mg/dL 03/15/2025 7:22 AM EDT [facility] Comment:Unable to calculate Blood Venipuncture / Unknown 03/15/2025 6:13 AM EDT 03/15/2025 6:28 AM EDT Narrative [facility] - 03/15/2025 7:22 AM EDT Specimen slightly hemolyzed us Ivis Sequeira MD LAB BLOOD ORDERABLES Final Resul t [facility] [address] [place] [address], [facility] [phone] * (ABNORMAL) Glucose, Nova Meter (03/15/2025 5:35 AM EDT) POC-GLUCOSE 193(H) 70 - 110 mg/dL 03/15/2025 5:37 AM EDT [facility] Comment: In the event of poor peripheral blood flow, venous or arterial blood should be used due to the potential of erroneous results. Notified Nurse RBV [employer] [phone] 03/15/2025 5:37 AM EDT [facility] Blood WHOLE BLOOD / Unknown 03/15/2025 5:35 AM EDT 03/15/2025 5:37 AM EDT Narrative [facility] - 03/15/2025 5:37 AM EDT [employer] Manager ID is - [id number] Ivis Sequeira MD POINT OF CARE TEST ORDERABLES Fi nal Result Performing Organization Address [facility] de Phone Number [facility] [address] [phone] * (ABNORMAL) Glucose, Nova Meter (03/14/2025 7:16 PM EDT) POC-GLUCOSE 188(H) 70 - 110 mg/dL 03/14/2025 7:17 PM EDT [facility] Comment: In the event of poor peripheral blood flow, venous or arterial blood should be used due to the potential of erroneous results. Notified Nurse RBV [employer] [id number] 03/14/2025 7:17 PM EDT [facility] Blood WHOLE BLOOD / Unknown 03/14/2025 7:16 PM EDT 03/14/2025 7:17 PM EDT Narrative [facility] - 03/14/2025 7:17 PM EDT [employer] Manager ID is - [id number] Ivis Sequeira MD POINT OF CARE TEST ORDERABLES Fi nal Result Performing Organization Address [facility] Co de Phone Number [facility] [address] [place] [address], [facility] [phone] * (ABNORMAL) Glucose, Nova Meter (03/14/2025 4:54 PM EDT) POC-GLUCOSE 265(H) 70 - 110 mg/dL 03/14/2025 4:56 PM EDT [facility] Comment: In the event of poor peripheral blood flow, venous or arterial blood should be used due to the potential of erroneous results. Notified Nurse RBV [employer] [phone] 03/14/2025 4:56 PM EDT [facility] Blood WHOLE BLOOD / Unknown 03/14/2025 4:54 PM EDT 03/14/2025 4:55 PM EDT Narrative [facility] - 03/14/2025 4:56 PM EDT [employer] Manager ID is - [id number] us Ivis Sequeira MD POINT OF CARE TEST ORDERABLES Fi nal Result [facility] [address] [phone] * MRI [employer] W WO CONTRAST [...] Name RENITA BEATTY Age 60 Patient Number [id number] Gender Female Race Unknown Ethnicity Corporate ID [id number] Height 62 Date of 1965 Weight 121 Accession Number [id number] BSA 1.54 m^2 Room Number 308 BMI 22.13 kg/m^2 Referring IVIS SEQUEIRA MD Interpreting KRIS GAN MD Physician Physician Spice Miller LORRAINE Davies Procedure Type of Study: Cerebral: [...] Name RENITA BEATTY Age 60 Patient Number [id number] Gender Female Race Unknown Ethnicity Corporate ID [id number] Height 62 Date of 1965 Weight 121 Accession Number [id number] BSA 1.54 m^2 Room Number 308 BMI 22.13 kg/m^2 Referring IVIS SEQUEIRA MD Interpreting KRIS HANSON Physician Physician Spice Miller LORRAINE Davies Procedure Type of Study: Cerebral: [...] Glucose, Nova Meter (03/14/2025 11:33 AM EDT) [facility] POC-GLUCOSE 124(H) 70 - 110 mg/dL 03/14/2025 11:34 AM EDT [facility] Comment: In the event of poor peripheral blood flow, venous or arterial blood should be used due to the potential of erroneous results. Notified Nurse RBV [employer] [phone] 03/14/2025 11:34 AM EDT [facility] Blood WHOLE BLOOD / Unknown 03/14/2025 11:33 AM EDT 03/14/2025 11:34 AM EDT Narrative [facility] - 03/14/2025 11:34 AM EDT [employer] ID is - [id number] Ivis Sequeira MD POINT OF CARE TEST ORDERABLES Fi nal Result [facility] [address] [phone] * (ABNORMAL) Magnesium (03/14/2025 10:49 AM EDT) Magnesium 1.5(L) 1.6 - 2.6 mg/dL 03/14/2025 11:52 AM EDT [facility] Blood Venipuncture / Unknown 03/14/2025 10:49 AM EDT 03/14/2025 11:27 AM EDT us Ivis Sequeira MD LAB BLOOD ORDERABLES Final Resul t [facility] [address] [phone] * (ABNORMAL) Comprehensive metabolic panel (03/14/2025 10:49 AM EDT) Sodium 144 136 - 145 meq/L 03/14/2025 11:52 AM EDT [facility] Potassium 3.3(L) 3.4 - 5.1 meq/L 03/14/2025 11:52 AM EDT [facility] Chloride 106 98 - 112 meq/L 03/14/2025 11:52 AM EDT [facility] CO2 21(L) 22 - 29 meq/L 03/14/2025 11:52 AM EDT [facility] Calcium 9.8 8.4 - 10.2 mg/dL 03/14/2025 11:52 AM EDT [facility] Glucose 114 82 - 115 mg/dL 03/14/2025 11:52 AM EDT [facility] BUN 21.3(H) 9.8 - 20.1 mg/dL 03/14/2025 11:52 AM EDT [facility] Creatinine 0.83 0.57 - 1.11 mg/dL 03/14/2025 11:52 AM EDT [facility] BUN/Creatinine 26(H) 8 - 20 03/14/2025 11:52 AM EDT [facility] eGFR (mL/min/1.73m2) 80 >=60 mL/min/1. 73m2 03/14/2025 11:52 AM EDT [facility] Albumin 3.4(L) 3.5 - 5.0 g/dL 03/14/2025 11:52 AM EDT [facility] Alkaline Phosphatase 99 40 - 150 U/L 03/14/2025 11:52 AM EDT [facility] ALT 24 <=34 U/L 03/14/2025 11:52 AM EDT [facility] Comment: ALT2 reagent used for testing does not contain P5P supplementation and therefore may miss ALT elevations in patients with B6 deficiency. This population may be as high as 10% in the [place], with risk factors including malabsorption, drug interactions, and alcoholic hepatitis. AST 34 11 - 34 U/L 03/14/2025 11:52 AM EDT [facility] Comment: AST2 reagent used for testing does not contain P5P supplementation and therefore may miss AST elevations in patients with B6 deficiency. This population may be as high as 10% in the [place], with risk factors including malabsorption, drug interactions, and alcoholic hepatitis. Total Bilirubin 0.6 0.2 - 1.2 mg/dL 03/14/2025 11:52 AM EDT [facility] Protein, Total 6.7 6.4 - 8.3 g/dL 03/14/2025 11:52 AM EDT [facility] Globulin 3.3 2.5 - 4.1 g/dL 03/14/2025 11:52 AM EDT [facility] Anion Gap 20(H) 4 - 12 03/14/2025 11:52 AM EDT [facility] A/G Ratio 1.0 0.7 - 1.9 03/14/2025 11:52 AM EDT [facility] Osmolality Calc 290.8 mOsm/kg 11:52 AM EDT [facility] Blood Venipuncture / Unknown 03/14/2025 10:49 AM EDT 03/14/2025 11:27 AM EDT us Ivis Sequeira MD LAB BLOOD ORDERABLES Final Resul t [facility] [address] [phone] * (ABNORMAL) CBC with automated diff (03/14/2025 10:49 AM EDT) WBC 8.3 4.0 - 10.0 K/ L 03/14/2025 11:31 AM EDT [facility] RBC 4.98 3.93 - 5.22 M/ L 03/14/2025 11:31 AM EDT [facility] Hemoglobin 15.8(H) 11.2 - 15.7 GM/DL 03/14/2025 11:31 AM EDT [facility] Hematocrit 46.1(H) 34.1 - 44.9 % 03/14/2025 11:31 AM EDT [facility] MCV 93 79 - 95 fL 03/14/2025 11:31 AM EDT [facility] MCH 31.7 25.6 - 32.2 pg 03/14/2025 11:31 AM EDT [facility] MCHC 34.3 32.2 - 35.5 GM/DL 03/14/2025 11:31 AM EDT [facility] RDW 12.3 11.7 - 14.4 % 03/14/2025 11:31 AM EDT [facility] Platelets 218 140 - 375 K/CU MM 03/14/2025 11:31 AM EDT [facility] MPV 9.3(L) 9.4 - 12.3 fL 03/14/2025 11:31 AM EDT [facility] % Neutros 68 34 - 71 % 03/14/2025 11:31 AM EDT [facility] % Lymphs 25 19 - 52 % 03/14/2025 11:31 AM EDT [facility] % Monos 6 5 - 13 % 03/14/2025 11:31 AM EDT [facility] % Eos 1 1 - 6 % 03/14/2025 11:31 AM EDT [facility] % Baso 1 0 - 1 % 03/14/2025 11:31 AM EDT [facility] NRBC Absolute <0.01 0 - 0.012 K/ul 03/14/2025 11:31 AM EDT [facility] # Neutros 5.58 1.56 - 6.13 K/ L 03/14/2025 11:31 AM EDT [facility] # Lymphs 2.04 1.18 - 3.74 K/ L 03/14/2025 11:31 AM EDT [facility] # Monos 0.52 0.24 - 0.86 K/ L 03/14/2025 11:31 AM EDT [facility] # Eos 0.04 0.04 - 0.36 K/ L 03/14/2025 11:31 AM EDT [facility] # Baso 0.05 0.01 - 0.08 K/ L 03/14/2025 11:31 AM EDT [facility] Immature Granulocytes-Re lative 0.40 0.01 - 0.43 % 03/14/2025 11:31 AM EDT [facility] # IG 0.03 0.00 - 0.03 K/uL 03/14/2025 11:31 AM EDT [facility] Blood Venipuncture / Unknown 03/14/2025 10:49 AM EDT 03/14/2025 11:27 AM EDT Narrative [facility] - 03/14/2025 11:31 AM EDT [...] MD LAB BLOOD ORDERABLES Final Resul t [facility] [address] [place] [address], [facility] [phone] * (ABNORMAL) Glucose, Nova Meter (03/14/2025 4:52 AM EDT) POC-GLUCOSE 133(H) 70 - 110 mg/dL 03/14/2025 4:53 AM EDT [facility] Comment: In the event of poor peripheral blood flow, venous or arterial blood should be used due to the potential of erroneous results. Notified Nurse RBV Meat Sales And Storage Manager [phone] 03/14/2025 4:53 AM EDT [facility] Blood WHOLE BLOOD / Unknown 03/14/2025 4:52 AM EDT 03/14/2025 4:53 AM EDT Narrative [facility] - 03/14/2025 4:53 AM EDT Meat Sales And Storage Manager ID is - [id number] Rupert Meek PA-C POINT OF CARE TEST ORDERABLE S Final Result [facility] [address] [phone] documented in this encounter Visit Diagnoses Diagnosis [...] Given 03/15/2025 9:08 PM EDT 80 mg kvngnlrsba-ydrmlanpupjsu-iiqxpbgn (FIORICET,ESGIC) tablet 1 tablet Every 4 hours [...] Blood Sugar is less than 180 beteween 1872-0674, DO NOT give corrective insulin unless otherwise [...] MIX THOROUGHLY* 0642 (Given - Provider: David Babluena RN)1656 (Given - Provider: Ami Dangelo) 0632 [...] Blood Sugar is less than 180 beteween 9116-7109, DO NOT give corrective insulin unless otherwise [...] on Fri03/14/25 at 0204, 1st line analgesic rhcvhliurb-xtninttzvdlih-gzlitutt (FIORICET,ESGIC) tablet 1 tablet Every 4 hours [...] flush documented in this encounter Care Teams Shirt Line Operator Relationship Specialty Start Date End Date [facility], [facility] [place] [address] PCP - General 03/14/25 03/17/25 Vasu Gutierres MD [address] [facility] [address] [place] [address] PCP - General Family Medicine 03/18/25 Sweetie Hewitt PA [facility] [address] [place] [address] Physician Cash Accounting Clerk Physician Cash Accounting Clerk 03/18/25 documented as of this encounter
--- NOTE | 2025-04-26 08:00 | US_ITS ---
FINAL REPORT CLINICAL HISTORY: RT THYROID NODULE // CHANDLER MCGREGOR FINDINGS: Ultrasound guided thyroid biopsy. HISTORY: Thyroid mass. PROCEDURE: After informed consent was obtained and a time-out was performed, the patient was prepped and draped in usual sterile fashion over the anterior neck. Utilizing local anesthesia and sterile technique with a 25-gauge needle, access to the lesion was obtained. Four passes were made. The patient received no conscious sedation. The patient tolerated procedure well and left the department in good condition. IMPRESSION: Status post ultrasound guided biopsy of a thyroid nodule without immediate complication. Reviewed, Interpreted and Dictated by Destiney Card MD Transcribed by MECHE Glover Authenticated and [facility]
--- OUTSIDE RECORDS SUMMARY | 2025-04-26 08:16 | XMS_ITS | Encounter Summary ---
Author Organization [facility] Address [address] [place] [address] Care Team Providers Care Drier Unloader Name Role Phone Vasu Gutierres MD Primary Care Provider +1- [phone] Encounter Details Date Type Department Care Team (Late st Contact Info) Description 03/10/2025 Telephone [facility] [address] [facility] [address] [place] [address] Sophie Gentile APRN Social History Tobacco Use [...] an appointment for Vyepti infusion on 03/11/25. SHEEP FARM WORKER called patient to complete pre-infusion screening [...] Visit [place] [facility] [address], [address] [place] [address] Sweetie Hewitt PA [address] [place] [address] documented as of this encounter Visit Diagnoses Not on filedocumented in this encounter Additional Health Concerns Assessment Noted Time A fall risk assessment has been complete d for the patient 12/02/2024 10:04 AM EDT A Body Mass Index follow-up plan has been documented for the patient 12/02/2024 10:09 AM EDT documented as of this encounter Care Teams Drier Unloader Relationship Specialty Start Date End Date Vasu Gutierres MD [address] [place] [address] PCP - General 05/19/24 documented as of this encounter
--- OUTSIDE RECORDS SUMMARY | 2025-04-26 08:16 | XMS_ITS | Encounter Summary ---
Author Organization [facility] Address [address] [place] [address] Care Team Providers Care Cdl Company Driver Name Role Phone Vasu Gutierres MD Primary Care Provider +1- [phone] Encounter Details Date Type Department Care Team (Late st Contact Info) Description 03/08/2025 Telephone [facility] [address] [facility] [address] [place] [address] Sophie Gentile APRN Social History Tobacco Use [...] an appointment for Vyepti infusion on 03/09/25. COAL CUTTING MACHINE OPERATOR called patient to complete pre-infusion screening questions. [...] Visit [place] [facility] [address], [address] [place] [address] Sweetie Hewitt PA [address] [place] [address] documented as of this encounter Visit Diagnoses Not on filedocumented in this encounter Additional Health Concerns Assessment Noted Time A fall risk assessment has been complete d for the patient 12/02/2024 10:04 AM EDT A Body Mass Index follow-up plan has been documented for the patient 12/02/2024 10:09 AM EDT documented as of this encounter Care Teams Cdl Company Driver Relationship Specialty Start Date End Date Vasu Gutierres MD [address] [place] [address] PCP - General 05/19/24 documented as of this encounter
--- OUTSIDE RECORDS SUMMARY | 2025-04-26 08:18 | XMS_ITS | Encounter Summary ---
Author Organization Healthcare Address [address] [place] [address] Care Team Providers Care Supervisor Melt House Name Role Phone Vasu Gutierres MD Primary Care Provider +1- [phone] Reason for Visit * Reason Onset Date Comments HCN - Patient Message 02/10/2025 Reschedule Encounter Details Date Type Department Care Team (Late st Contact Info) Description 02/10/2025 Telephone [place] [facility] [address], [address] [place] [address] Sweetie Hewitt, PA [address] [place] [address] HCN - Patient Message (Reschedule [...] for Call: Patient is calling back to CC video appt. Best contact number and optimal time of day to reach caller: [phone] anytime Note: Please do not reply to [...] Reason for Call: Patient calling to r/s [employer] appt Best contact number and optimal time of day to reach caller: [phone] or [phone] Note: Please do not reply to this message. Follow-up communication and further actions as a result of this message need to be communicated with the patient directly, if the patient is not active onMyChart. If the patient is active on MyChart, they will receive notification of the communication/outcome via [employer]. documented in this encounter Plan of Treatment Upcoming Encounters Date Type Department Care Team (Late st Contact Info) Description 05/04/2025 12:30 PM EDT Office Visit [place] [facility] [address] [place] [address] Sweetie Hewitt PA [address] [place] [address] documented as of this encounter Visit Diagnoses Not on filedocumented in this encounter Additional Health Concerns Assessment Noted Time A fall risk assessment has been complete d for the patient 12/02/2024 10:04 AM EDT A Body Mass Index follow-up plan has been documented for the patient 12/02/2024 10:09 AM EDT documented as of this encounter Care Teams Supervisor Melt House Relationship Specialty Start Date End Date Vasu Gutierres MD [address] [place] [address] PCP - General 05/19/24 documented as of this encounter
--- OUTSIDE RECORDS SUMMARY | 2025-04-26 08:18 | XMS_ITS | Encounter Summary ---
Author Organization [facility] Address [address] [place] [address] Care Team Providers Care Judicial Clerk Name Role Phone Vasu Gutierres MD Primary Care Provider +1- [phone] Reason for Visit * Reason Onset Date Comments Vyepti rescheduling 03/28/2025 Encounter Details Date Type Department Care Team ([facility] Contact Info) Description 03/28/2025 Telephone [facility] [address] [place] [address] Michelle [place], PharmD Vyepti rescheduling Social History [...] their medication or [facility] at this time. For those patients receiving Infusion Services, the therapy plan will be d iscontinued. documented in this encounter Plan of Treatment Upcoming Encounters Date Type Department Care Team ([facility] Contact Info) Description 05/04/2025 12:30 PM EDT Office Visit [place] [facility] [address], [address] [place] [address] Sweetie Hewitt PA [address] [place] [address] documented as of this encounter Visit Diagnoses Not on filedocumented in this encounter Additional Health Concerns Assessment Noted Time A fall risk assessment has been complete d for the patient 12/02/2024 10:04 AM EDT A Body Mass Index follow-up plan has been documented for the patient 12/02/2024 10:09 AM EDT documented as of this encounter Care Teams Judicial Clerk Relationship Specialty Start Date End Date Vasu Gutierres MD [address] [place] [address] PCP - General 05/19/24 documented as of this encounter
--- OUTSIDE RECORDS SUMMARY | 2025-04-26 08:18 | XMS_ITS | Encounter Summary ---
Author Organization Healthcare Address [address] [place] [address] Care Team Providers Care Disintegrator Operator Name Role Phone Vasu Gutierres MD Primary Care Provider +1- [phone] Encounter Details Date Type Department Care Team (Late Contact Info) Description 04/12/2025 Orders Only [facility] [address] [place] [address] Jonna Olivo, RN [facility] Social History Tobacco Use Types Packs/Day [...] Visit [place] [facility] [address] [place] [address] Sweetie Hewitt, MECHE [address] [place] [address] documented as of this encounter Visit Diagnoses Not on filedocumented in this encounter Additional Health Concerns Assessment Noted Time A fall risk assessment has been complete d for the patient 12/02/2024 10:04 AM EDT A Body Mass Index follow-up plan has been documented for the patient 12/02/2024 10:09 AM EDT documented as of this encounter Care Teams Disintegrator Operator Relationship Specialty Start Date End Date Vasu Gutierres MD [address] [place] [address] PCP - General 05/19/24 documented as of this encounter
--- OUTSIDE RECORDS SUMMARY | 2025-04-26 08:18 | XMS_ITS | Encounter Summary ---
Author Organization Healthcare Address [address] [place] [address] Care Team Providers Care Motor Vehicles Inspector Name Role Phone Pcp, No Primary Care Provider Vasu Be MD Primary Care Provider +1- [phone] Reason for Referral * Consultation (Routine) - Closed Specialty Diagnoses / Procedures Referred By Contac t Referred To Contact Neurology Diagnoses Chronic intractable headache, unspecified headache type Tardive dyskinesia History of drug abuse History of stroke Major depression in remission (CMS/[facility]) Mira Dolan MD [address] [place] [address] [employer] [address] [place] [address] Phone: tel: fax: Luis Armando Weeks MD [address] [facility] [address] [place] [address] Phone: tel: fax: Referral ID Status Reason Start Date Expiration Date V isits Requested Visits Authorized [id number] Closed Specialty Services Required 03/05/2022 09/04/2023 1 1 Encounter Details Date Type Department Care Team (Late st Contact Info) Description 03/05/2022 [facility] [address] [place] [address] Mira Dolan MD [address] [facility] [address] [place] [address] Chronic intractable headache, unspecified headache type [...] Visit [place] [facility] [address], [address] [place] [address] Sweetie Hewitt PA [address] [place] [address] Scheduled Referrals Name Type Priority [...] remission documented in this encounter Care Teams Motor Vehicles Inspector Relationship Specialty Start Date End Date Pcp, Radha [address] [place] [address] PCP - General Family Medicine 06/04/23 05/18/24 Vasu Gutierres MD [address] [place] [address] PCP - General 05/19/24 documented as of this encounter
--- OUTSIDE RECORDS SUMMARY | 2025-04-26 08:19 | XMS_ITS | Referral Summary ---
Author Organization [employer] ([place], [place], [place], [place]) Address [address] [place] [address] Care Team Providers Care Lining Feller Blindstitch Name Role Phone Vasu Gutierres MD Primary Care Provider [phone]- [phone] Sweetie Hewitt Unavailable [phone] Encounters Date Type Department Care Team Description 03/14/2025 1:17 AM EDT - 03/18/2025 1:56 PM EDT Hospital Encounter [facility] Cardiac Telemetry [address] [place] [address] Murphy Hugo MD Elliott, Jayden, PA-C Ma, MD Ivis Discharge Disposition: Detention Facility 03/14/2025 Travel from Last 3 Months Allergies Active Allergy Reactions Criticality Noted Date Comments Aspartame Other (See Comments) Low 05/15/2017 Cephalosporins Itching Medium 05/15/2017 Ciprofloxacin 05/15/2017 Dihydroergotamine Other (See Comments),Rash Low 05/15/2017 Eletriptan 05/15/2017 Erenumab-Aooe Other (See Comments) Low 09/28/2024 Leg pain Erythromycin Other (See Comments),Rash High 05/15/2017 Ketorolac 05/15/2017 Ketorolac Tromethamine Other (See Comments) 03/05/2023 Methadone Other (See Comments),Swelling High 05/15/2017 Metoclopramide 05/15/2017 Naratriptan Other (See Comments),Hives High 05/15/2017 Ondansetron Nausea And Vomiting 03/12/2023 Per pt report [place] (Prunus Persica) Other (See Comments) Low 05/15/2017 Penicillins Nausea And Vomiting,Other (See Comments),Itching Medium 05/15/2017 Quetiapine Other (See Comments),Hives High 05/15/2017 Quinolones Rash,Hives High 05/01/2022 Saccharin Other (See Comments) Low 05/15/2017 Sulfa (Sulfonamide Antibiotics) Itching Low 05/15/2017 Sumatriptan 05/15/2017 Trimethoprim Rash Medium 05/01/2022 Vilazodone Rash,Itching High 05/01/2022 Medications lisinopriL (ZESTRIL) 5 MG tablet Take 1 tablet (5 mg total) by mouth daily. Active traZODone (DESYREL) 150 MG tablet Take 1 tablet (150 mg total) by mouth nightly. Active insulin 70/30 NPH-regular human (HumuLIN 70/30, NovoLIN 70/30) 100 unit/mL (70-30) injection Inject 20 Units under the skin 2 (two) times daily before meals. Active atorvastatin (LIPITOR) 80 MG tablet Take 1 tablet (80 mg total) by mouth nightly. Active valbenazine 80 mg cap Take 80 mg by mouth daily. Active tiZANidine (ZANAFLEX) 4 MG tablet Take 1 tablet (4 mg total) by mouth 3 (three) times daily as needed for muscle spasms. Active desvenlafaxine (PRISTIQ) 100 MG 24 hr tablet Take 1 tablet (100 mg total) by mouth daily. Active rimegepant 75 mg TbDLIndications: migraine Take 75 mg by mouth daily as needed (daily PRN). Active atogepant (Qulipta) 60 mg tab Take 60 mg by mouth daily. Active levETIRAcetam (KEPPRA) 500 MG tablet Take 1 tablet (500 mg total) by mouth 2 (two) times daily. Active acetaminophen (TYLENOL) 325 MG tablet Take 1 tablet (325 mg total) by mouth every 6 (six) hours as needed for pain. Active alendronate (FOSAMAX) 70 MG tablet Take 1 tablet (70 mg total) by mouth once a week Take in the morning with a full glass of water, on an empty stomach, and do not take anything else by mouth or lie down for the next 30 min.. Active dapagliflozin propanediol (Farxiga) 10 mg tablet Take 1 tablet (10 mg total) by mouth daily. Active cetirizine (ZyrTEC) 10 MG tablet Take 1 tablet (10 mg total) by mouth daily. Active melatonin 5 mg tablet Take 1 tablet (5 mg total) by mouth every night as needed for sleep. Active NIFEdipine (ADALAT CC) 30 MG 24 hr tablet Take 1 tablet (30 mg total) by mouth daily. Active insulin lispro (HUMALOG, ADMELOG) 100 unit/mL injection Inject 0-12 Units under the skin 4 (four) times daily before meals and nightly. Active pantoprazole (PROTONIX) 40 MG tablet Take 1 tablet (40 mg total) by mouth Daily (0600). Active clopidogreL (PLAVIX) 75 mg tablet Take 1 tablet (75 mg total) by mouth daily Look-alike/ Sound-alike medication. Active aspirin 81 MG EC tablet Take 1 tablet (81 mg total) by mouth daily. Active Active Problems Problem Noted Date Diagnosed Date Internal carotid artery stenosis 03/14/2025 Carotid stenosis, right 03/14/2025 Social History Tobacco Use Types Packs/Day Years [...] your living situation today? I have a [facility] place to live 03/14/2025 Think about the [...] Do you speak a language other than [place] at [facility]? No 03/14/2025 Do you want help with [...] EDT Inhaled Oxygen Concentration - - Weight 53.1 kg (117 lb) 03/14/2025 11:19 AM EDT Height 157.5 cm (5' 2 ) 03/14/2025 11:19 AM EDT Body Mass Index 21.4 03/14/2025 11:19 AM EDT Plan of Treatment Upcoming Encounters Date Type Department Care Team (Late st Contact Info) Description 05/24/2025 9:00 AM EST Office Visit [facility] Cardiology [address] [place] [address] [place] [address] [place] [address] [address] [place] [address] Procedures Procedure Name Priority Date/Time Associated Diagnosis [...] EDT MAGNESIUM STAT 03/15/2025 6:13 AM EDT BASIC METABOLIC PANEL STAT 03/15/2025 6:13 AM EDT LIPID PANEL STAT 03/15/2025 6:13 AM EDT NOVA GLUCOSE POC Routine 03/15/2025 5:35 AM EDT NOVA GLUCOSE POC Routine 03/14/2025 7:16 PM EDT NOVA GLUCOSE POC Routine 03/14/2025 4:54 PM EDT MRI BRAIN STEALTH WITH WITHOUT CONTRAST STAT 03/14/2025 3:54 PM EDT US CAROTID BLOOD FLOW BILATERAL AGNIESZKA 03/14/2025 12:46 PM EDT NOVA GLUCOSE POC Routine 03/14/2025 11:3 3 AM EDT MAGNESIUM STAT 03/14/2025 10:49 AM EDT COMPREHENSIVE METABOLIC PANEL STAT 03/14/2025 10:49 AM EDT CBC W/ AUTO DIFF STAT 03/14/2025 10:4 9 AM EDT NOVA GLUCOSE POC Routine 03/14/2025 4:52 AM EDT from Last 3 Months Results * (ABNORMAL) Glucose, Nova Meter (03/18/2025 11:50 AM EDT) Only the most recent of18 resultswithin the time period is included. POC-GLUCOSE 331(H) 70 - 110 mg/dL 03/18/2025 11:58 AM EDT [facility] Comment: In the event of poor peripheral blood flow, venous or arterial blood should be used due to the potential of erroneous results. Notified Nurse RBV Engineering Design Manager [phone] 03/18/2025 11:58 AM EDT [facility] Blood WHOLE BLOOD / Unknown 03/18/2025 11:50 AM EDT 03/18/2025 11:57 AM EDT [facility]ORY - 03/18/2025 11:58 AM EDT Engineering Design Manager ID is - [id number] us Ivis Sequeira MD POINT OF CARE TEST ORDERABLES Fi nal Result [facility] [address] [phone] * Magnesium (03/15/2025 6:13 AM EDT) Only the most recent of2 resultswithin the time period is included. Pathologist [facility] Magnesium 1.6 1.6 - 2.6 mg/dL 03/15/2025 10:53 AM EDT [facility] Blood Venipuncture / Unknown 03/15/2025 6:13 AM EDT 03/15/2025 6:28 AM EDT [facility] LABORATORY - 03/15/2025 10:53 AM EDT Specimen slightly hemolyzed us Ivis Sequeira MD LAB BLOOD ORDERABLES Final Resul t [facility] [address] [place] [id number], [facility] [phone] * Lipid panel (03/15/2025 6:13 AM EDT) Triglycerides 100 <=149 mg/dL 03/15/2025 7:22 AM EDT [facility] Comment: Normal: < 150 mg/dL Borderline High: 150 to 199 mg/dL High: 200 to 499 mg/dL Very High: >/= 500 mg/dL Cholesterol 111 100 - 199 mg/dL 03/15/2025 7:22 AM EDT [facility] Comment: Child: Desirable: < 170 mg/dL Borderline: 170 to 199 mg/dL High: >/= 200 mg/dL Adult: Desirable: < 200 mg/dL Borderline: 200 to 239 mg/dL High: >/= 240 mg/dL HDL Cholesterol 43 See Comment mg/dL 03/15/2025 7:22 AM EDT [facility] Comment: Major risk factor for heart disease: < 40 mg/dL Negative risk factor for heart disease: >/= 60 mg/dL LDL Cholesterol, Calculated 48 0 - 100 mg/dL 03/15/2025 7:22 AM EDT [facility] Comment: Unable to calculate Optimal: < 100 mg/dL Near or above optimal: 100 to 129 mg/dL Borderline high: 130 to 159 mg/dL High: 160 to 189 mg/dL Very high: >/= 190 mg/dL Based on AHA/NCEP Guidelines LDl/HDL Ratio 1 0 - 4 03/15/2025 7:22 AM EDT [facility] Comment:Unable to calculate. Cholesterol/HDL ratio 2.6 0.0 - 5.0 mg/dL 03/15/2025 7:22 AM EDT [facility] VLDL Cholesterol 20 5 - 40 mg/dL 03/15/2025 7:22 AM T [facility] Comment:Unable to calculate Blood Venipuncture / Unknown 03/15/2025 6:13 AM EDT 03/15/2025 6:28 AM EDT Narrative [facility] - 03/15/2025 7:22 AM EDT Specimen slightly hemolyzed us Ivis Sequeira MD LAB BLOOD ORDERABLES Final Resul t [facility] [address] [phone] * (ABNORMAL) Basic Metabolic Panel (03/15/2025 6:13 AM EDT) Sodium 139 136 - 145 meq/L 03/15/2025 10:52 AM EDT [facility] Potassium 3.7 3.4 - 5.1 meq/L 03/15/2025 10:52 AM EDT [facility] CO2 20(L) 22 - 29 meq/L 03/15/2025 10:52 AM EDT [facility] Chloride 106 98 - 112 meq/L 03/15/2025 10:52 AM EDT [facility] Glucose 200(H) 82 - 115 mg/dL 03/15/2025 10:52 AM EDT [facility] BUN 27.9(H) 9.8 - 20.1 mg/dL 03/15/2025 10:52 AM EDT [facility] Creatinine 0.99 0.57 - 1.11 mg/dL 03/15/2025 10:52 AM EDT [facility] BUN/Creatinine 28(H) 8 - 20 03/15/2025 10:52 AM EDT [facility] Calcium 9.8 8.4 - 10.2 mg/dL 03/15/2025 10:52 AM EDT [facility] Anion Gap 17(H) 4 - 12 03/15/2025 10:52 AM EDT [facility] eGFR (mL/min/1.73m2) 65 >=60 mL/min/1.7 3m2 03/15/2025 10:52 AM EDT [facility] Osmolality Calc 288.6 mOsm/kg 10:52 AM EDT [facility] Blood Venipuncture / Unknown 03/15/2025 6:13 AM EDT 03/15/2025 6:28 AM EDT Narrative [facility] - 03/15/2025 10:52 AM EDT Specimen slightly hemolyzed us Ivis Sequeira MD LAB BLOOD ORDERABLES Final Resul t [facility] [address] [phone] * MRI BRAIN STEALTH W WO CONTRAST [...] interpreted, and dictated by America Galeano MD rSinivasa Ann MD IMG MRI ORDERABLES Final Result * US CAROTID BLOOD FLOW BILATERAL (03/14/2025 12:46 PM EDT) Anatomical Region Laterality Modality Vascular, Carotid Vascular Ultra sound 03/14/2025 11:2 2 AM EDT Narrative 03/14/2025 1:19 PM EDT Vascular Carotid Procedure Demographics Patient Name ZAIN BEATTY Age 60 Patient Number [id number] Gender Female Race Unknown Ethnicity Corporate ID [id number] Height 62 Date of 1965 Weight 121 Accession Number [id number] BSA 1.54 m^2 Room Number 308 BMI 22.13 kg/m^2 Referring IVIS SEQUEIRA MD Interpreting KRIS GAN MD Physician Physician Hog Sticker LORRAINE Davies Procedure Type of Study: Cerebral: [...] 03/14/2025 Vascular Carotid Procedure Demographics Patient Name ZAIN BEATTY Age 60 Patient Number [id number] Gender Female Race Unknown Ethnicity Corporate ID [id number] Height 62 Date of 1965 Weight 121 Accession Number [id number] BSA 1.54 m^2 Room Number 308 BMI 22.13 kg/m^2 Referring IVIS SEQUEIRA MD Interpreting KRIS HANSON Physician Physician Hog Sticker LORRAINE Davies Procedure Type of Study: Cerebral: [...] plaque in the proximal ICA . Signature us Ivis Sequeira MD CV VASCULAR ORDERABLES Final Res ult * (ABNORMAL) CBC with automated diff (03/14/2025 10:49 AM EDT) Pathologist [facility] WBC 8.3 4.0 - 10.0 K/ L 03/14/2025 11:31 AM EDT [facility] RBC 4.98 3.93 - 5.22 M/ L 03/14/2025 11:31 AM EDT [facility] Hemoglobin 15.8(H) 11.2 - 15.7 GM/DL 03/14/2025 11:31 AM EDT [facility] Hematocrit 46.1(H) 34.1 - 44.9 % 03/14/2025 11:31 AM EDT [facility] MCV 93 79 - 95 fL 03/14/2025 11:31 AM EDT [facility] MCH 31.7 25.6 - 32.2 pg 03/14/2025 11:31 AM EDT [facility] MCHC 34.3 32.2 - 35.5 GM/DL 03/14/2025 11:31 AM EDT [facility] RDW 12.3 11.7 - 14.4 % 03/14/2025 11:31 AM EDT [facility] Platelets 218 140 - 375 K/CU MM 03/14/2025 11:31 AM EDT [facility] MPV 9.3(L) 9.4 - 12.3 fL 03/14/2025 11:31 AM EDT [facility] % Neutros 68 34 - 71 % 03/14/2025 11:31 AM EDT [facility] % Lymphs 25 19 - 52 % 03/14/2025 11:31 AM EDT [facility] % Monos 6 5 - 13 % 03/14/2025 11:31 AM EDT [facility] % Eos 1 1 - 6 % 03/14/2025 11:31 AM EDT [facility] % Baso 1 0 - 1 % 03/14/2025 11:31 AM EDT [facility] NRBC Absolute <0.01 0 - 0.012 K/ul 03/14/2025 11:31 AM EDT [facility] # Neutros 5.58 1.56 - 6.13 K/ L 03/14/2025 11:31 AM EDT [facility] # Lymphs 2.04 1.18 - 3.74 K/ L 03/14/2025 11:31 AM EDT [facility] # Monos 0.52 0.24 - 0.86 K/ L 03/14/2025 11:31 AM EDT [facility] # Eos 0.04 0.04 - 0.36 K/ L 03/14/2025 11:31 AM EDT [facility] # Baso 0.05 0.01 - 0.08 K/ L 03/14/2025 11:31 AM EDT [facility] Immature Granulocytes-Re lative 0.40 0.01 - 0.43 % 03/14/2025 11:31 AM EDT [facility] # IG 0.03 0.00 - 0.03 K/uL 03/14/2025 11:31 AM EDT [facility] Blood Venipuncture / Unknown 03/14/2025 10:49 AM EDT 03/14/2025 11:27 AM EDT Narrative [facility] - 03/14/2025 11:31 AM [...] MD LAB BLOOD ORDERABLES Final Resul t [facility] [address] [phone] * (ABNORMAL) Comprehensive metabolic panel (03/14/2025 10:49 AM EDT) Sodium 144 136 - 145 meq/L 03/14/2025 11:52 AM EDT [facility] Potassium 3.3(L) 3.4 - 5.1 meq/L 03/14/2025 11:52 AM EDT [facility] Chloride 106 98 - 112 meq/L 03/14/2025 11:52 AM EDT [facility] CO2 21(L) 22 - 29 meq/L 03/14/2025 11:52 AM EDT [facility] Calcium 9.8 8.4 - 10.2 mg/dL 03/14/2025 11:52 AM EDT [facility] Glucose 114 82 - 115 mg/dL 03/14/2025 11:52 AM EDT [facility] BUN 21.3(H) 9.8 - 20.1 mg/dL 03/14/2025 11:52 AM EDT [facility] Creatinine 0.83 0.57 - 1.11 mg/dL 03/14/2025 11:52 AM EDT [facility] BUN/Creatinine 26(H) 8 - 20 03/14/2025 11:52 AM EDT [facility] eGFR (mL/min/1.73m2) 80 >=60 mL/min/1. 73m2 03/14/2025 11:52 AM EDT [facility] Albumin 3.4(L) 3.5 - 5.0 g/dL 03/14/2025 11:52 AM EDT [facility] Alkaline Phosphatase 99 40 - 150 U/L 03/14/2025 11:52 AM EDT [facility] ALT 24 <=34 U/L 03/14/2025 11:52 AM EDT [facility] Comment: ALT2 reagent used for testing does not contain P5P supplementation and therefore may miss ALT elevations in patients with B6 deficiency. This population may be as high as 10% in the [place], with risk factors including malabsorption, drug interactions, and alcoholic hepatitis. AST 34 11 - 34 U/L 03/14/2025 11:52 AM EDT [facility] Comment: AST2 reagent used for testing does not contain P5P supplementation and therefore may miss AST elevations in patients with B6 deficiency. This population may be as high as 10% in the [place], with risk factors including malabsorption, drug interactions, and alcoholic hepatitis. Total Bilirubin 0.6 0.2 - 1.2 mg/dL 03/14/2025 11:52 AM EDT [facility] Protein, Total 6.7 6.4 - 8.3 g/dL 03/14/2025 11:52 AM EDT [facility] Globulin 3.3 2.5 - 4.1 g/dL 03/14/2025 11:52 AM EDT [facility] Anion Gap 20(H) 4 - 12 03/14/2025 11:52 AM EDT [facility] A/G Ratio 1.0 0.7 - 1.9 03/14/2025 11:52 AM EDT [facility] Osmolality Calc 290.8 mOsm/kg 11:52 AM EDT [facility] Blood Venipuncture / Unknown 03/14/2025 10:49 AM EDT 03/14/2025 11:27 AM EDT us Ivis Sequeira MD LAB BLOOD ORDERABLES Final Resul t [facility] [address] [phone] from Last 3 Months Insurance [facility] ADV DUAL COMPLETE MEDICAID OF [place] Advance Directives For more information, please contact: [phone] * Full Code (Latest Code Status on File) Date Activated Date Inactivated Comments 03/14/2025 1:04 AM 03/18/2025 3:17 PM Care Teams Lining Feller Blindstitch Relationship Specialty Start Date End Date Vasu Gutierres MD [address] [place] [id number] PCP - General Family Medicine 03/18/25 Sweetie Hewitt PA [facility] [address] [place] [address] Physician Box Office Attendant Physician Box Office Attendant 03/18/25
--- OUTSIDE RECORDS SUMMARY | 2025-04-26 08:19 | XMS_ITS | Clinical Summary ---
Author Organization [facility] Address [address] [place] [address] Care Team Providers Care Paperhanger Assistant Name Role Phone Vasu Gutierres MD Primary Care Provider [phone] Allergies Active Allergy Reactions Criticality Noted Date [...] (one) time each day. Active Continuous Glucose Director Speech Language (1Life HealthcareStyle John 14 Day Himrod) device 3 Active Continuous Glucose Sensor (FreeStyle John 2 Sensor) [facility] USE DIRECTED (CHANGE EVERY 14 D AYS. [...] mouth 3 (three) times a day. Active SolvonicsTouch Ultra Test test strip USE TO TEST 4 TIMES DAILY DIRECTED. Active hydrOXYzine pamoate (Vistaril) 25 MG capsule 4 Active Levemir FlexPen 100 UNIT/ML injection pen 4 Active BD Pen Needle Micro U/F 32G X 6 MM misc 2 (two) times a day. as directed 4 Active Lancets (OneTouch Delica Plus [id number]) misc 4 (four) times a day. 4 [...] Department Care Team Description 04/12/2025 Orders Only [facility] [address] [place] [address] Jonna Olivo RN 03/28/2025 Telephone [facility] [address] [place] [address] Michelle Monroe, PharmD Vyepti rescheduling 03/10/2025 Telephone [facility] [address] [facility] [address] [place] [phone] Sophie Gentile APRN 03/08/2025 Telephone [facility] [address] [place] [phone] SeferinoSophie, HOSPITAL INSURANCE REPRESENTATIVE 02/23/2025 Telephone [facility] [address] [place] [phone] Nilda Love, HOSPITAL INSURANCE REPRESENTATIVE 02/10/2025 Telephone [place] [facility] [address] [place] [address] Sweetie Hewitt, M[facility] - [...] Visit [place] [facility] [address] [place] [address] Sweetie Hewitt PA [address] [place] [address] Health Maintenance Due Date Last [...] of 2 - PCV) 10/25/2020 10/26/2019, 04/18/2014 [id number] Vaccine (3 - season) 2025 05/26/2021, 10/21/2020 [...] to complete this topic Insurance [place] [id number] [place] MEDICARE Care Teams Paperhanger Assistant Relationship Specialty Start Date End Date Vasu Gutierres MD [address] [facility] [place] [id number] [facility] - General 05/19/24
--- OUTSIDE RECORDS SUMMARY | 2025-04-26 08:19 | XMS_ITS | Clinical Summary ---
Author Organization [employer] ([place], [place], [place], [place]) Address [address] [place] [address] Care Team Providers Care Laundromat Worker Name Role Phone Vasu Gutierres MD Primary Care Provider [phone] Sweetie Hewitt Unavailable [phone] Allergies Active Allergy Reactions Criticality Noted Date [...] Nausea And Vomiting 03/12/2023 Per pt report Vermillion (Prunus Persica) Other (See Comments) Low 05/15/2017 [...] artery stenosis 03/14/2025 Carotid stenosis, right 03/14/2025 Encounters Date Type Department Care Team Description 03/14/2025 1:17 AM EDT - 03/18/2025 1:56 PM EDT Hospital Encounter [facility] Cardiac Telemetry [address] [place] [address] Murphy Hugo MD Elliott, Jayden, PA-C Ma, MD Ivis Discharge Disposition: Long Term Facility 03/14/2025 Travel from Last 3 Months Social History [...] Do you speak a language other than [place] at [facility]? No 03/14/2025 Do you want help with [...] Description 05/24/2025 9:00 AM EST Office Visit [facility] Cardiology [address] [place] [phone] Kris Gomez MD [address] [place] [address] [address] [place] [address] Health Maintenance Due Date Last Done Comments CT Colonography 1965 Colonoscopy 1965 Colorectal Cancer Screening 1963 FOBT/FIT 1963 Fit-DNA (Cologuard) 1963 Sigmoidoscopy 1963 Depression Screening (12+) 1975 Tobacco Cessation Counseling and Screening (12+) 1975 HIV Screening 1978 Hepatitis C Screening 1981 Pap Smear 02/26/1984 Breast Cancer Screening 2003 Shingles Vaccine (Zoster) (1 of 2) 2013 Pneumococcal 50+ years (2 of 2 - PCV) 10/25/2020 10/26/2019, 04/18/2014 Medicare IPPE (Welcome to Medicare) G0402 07/21/2024 COVID-19 VACCINE (3 - 2024-2 6 season) 2025 05/26/2021, 10/21/2020 Influenza Vaccine (#1) 2025 05/26/2021, 2016 DTAP/TDAP/TD VACCINES (2 - T d or Tdap) 07/10/2027 07/10/2017 Lipid Panel 03/15/2030 03/15/2025, 0607/2023, 06/09/2023, Additional history exists Respiratory Syncytial Virus (RSV) Adult or (1 - 1-dose 75+ series) 2038 Procedures Procedure Name Priority Date/Time Associated Diagnosis [...] of18 resultswithin the time period is included. [facility] POC-GLUCOSE 331(H) 70 - 110 mg/dL 03/18/2025 11:58 AM EDT [facility] Comment: In the event of poor peripheral blood flow, venous or arterial blood should be used due to the potential of erroneous results. Notified Nurse RBV Icing Mixer [id number] 03/18/2025 11:58 AM EDT [facility] Blood WHOLE BLOOD / Unknown 03/18/2025 11:50 AM EDT 03/18/2025 11:57 AM EDT [facility] - 03/18/2025 11:58 AM EDT Icing Mixer ID is - [id number] Ivis Sequeira MD POINT OF CARE TEST ORDERABLES Fi nal Result Performing Organization Address [facility] de Phone Number [facility] [address] [place] [address] * Magnesium (03/15/2025 6:13 AM EDT) Only the most recent of2 resultswithin the time period is included. Magnesium 1.6 1.6 - 2.6 mg/dL 03/15/2025 10:53 AM EDT [facility] Blood Venipuncture / Unknown 03/15/2025 6:13 AM EDT 03/15/2025 6:28 AM EDT [facility] - 03/15/2025 10:53 AM EDT Specimen slightly hemolyzed Ivis Sequeira MD LAB BLOOD ORDERABLES Final Resul t Performing Organization Address [facility] Co de Phone Number [facility] [address] [phone] * Lipid panel (03/15/2025 6:13 AM EDT) Triglycerides 100 <=149 mg/dL 03/15/2025 7:22 AM EDT [facility] Comment: Normal: < 150 mg/dL Borderline High: 150 to 199 mg/dL High: 200 to 499 mg/dL Very High: >/= 500 mg/dL Cholesterol 111 100 - 199 mg/dL 03/15/2025 7:22 AM EDT [facility] Comment: Child: Desirable: < 170 mg/dL Borderline: 170 to 199 mg/dL High: >/= 200 mg/dL Adult: Desirable: < 200 mg/dL Borderline: 200 to 239 mg/dL High: >/= 240 mg/dL HDL Cholesterol 43 See Comment mg/dL 03/15/2025 7:22 AM EDT [facility] Comment: Major risk factor for heart disease: < 40 mg/dL Negative risk factor for heart disease: >/= 60 mg/dL LDL Cholesterol, Calculated 48 0 - 100 mg/dL 03/15/2025 7:22 AM EDT [facility] Comment: Unable to calculate Optimal: < 100 mg/dL Near or above optimal: 100 to 129 mg/dL Borderline high: 130 to 159 mg/dL High: 160 to 189 mg/dL Very high: >/= 190 mg/dL Based on AHA/NCEP Guidelines LDl/HDL Ratio 1 0 - 4 03/15/2025 7:22 AM EDT [facility] Comment:Unable to calculate. Cholesterol/HDL ratio 2.6 0.0 - 5.0 mg/dL 03/15/2025 7:22 AM EDT [facility] VLDL Cholesterol 20 5 - 40 mg/dL 03/15/2025 7:22 AM EDT [facility] Comment:Unable to calculate Blood Venipuncture / Unknown 03/15/2025 6:13 AM EDT 03/15/2025 6:28 AM EDT Narrative [facility] - 03/15/2025 7:22 AM EDT Specimen slightly hemolyzed us Ivis Sequeira MD LAB BLOOD ORDERABLES Final Resul t [facility] [address] [phone] * (ABNORMAL) Basic Metabolic Panel (03/15/2025 6:13 AM EDT) Sodium 139 136 - 145 meq/L 03/15/2025 10:52 AM EDT [facility] Potassium 3.7 3.4 - 5.1 meq/L 03/15/2025 10:52 AM EDT [facility] CO2 20(L) 22 - 29 meq/L 03/15/2025 10:52 AM EDT [facility] Chloride 106 98 - 112 meq/L 03/15/2025 10:52 AM EDT [facility] Glucose 200(H) 82 - 115 mg/dL 03/15/2025 10:52 AM EDT [facility] BUN 27.9(H) 9.8 - 20.1 mg/dL 03/15/2025 10:52 AM EDT [facility] Creatinine 0.99 0.57 - 1.11 mg/dL 03/15/2025 10:52 AM EDT [facility] BUN/Creatinine 28(H) 8 - 20 03/15/2025 10:52 AM EDT [facility] Calcium 9.8 8.4 - 10.2 mg/dL 03/15/2025 10:52 AM EDT [facility] Anion Gap 17(H) 4 - 12 03/15/2025 10:52 AM EDT [facility] eGFR (mL/min/1.73m2) 65 >=60 mL/min/1.7 3m2 03/15/2025 10:52 AM EDT [facility] Osmolality Calc 288.6 mOsm/kg 10:52 AM EDT [facility] Blood Venipuncture / Unknown 03/15/2025 6:13 AM EDT 03/15/2025 6:28 AM EDT Narrative [facility] - 03/15/2025 10:52 AM EDT Specimen slightly hemolyzed us Iivs Sequeira MD LAB BLOOD ORDERABLES Final Resul t [facility] [address] [phone] * MRI BRAIN STEALTH W WO CONTRAST [...] Name ZAIN BEATTY Age 60 Patient Number [id number] Gender Female Race Unknown Ethnicity Corporate ID [id number] Height 62 Date of 1965 Weight 121 Accession Number [id number] BSA 1.54 m^2 Room Number 308 BMI 22.13 kg/m^2 Referring IVIS SEQUEIRA MD Interpreting KRIS GOMEZ MD Physician Physician Meters Superintendent LORRAINE Davies Procedure Type of Study: Cerebral: [...] proximal ICA . Signature Procedure Note Kris Gomez MD - 03/14/2025 Vascular Carotid Procedure Demographics Patient Name ZAIN BEATTY Age 60 Patient Number [id number] Gender Female Race Unknown Ethnicity Corporate ID [id number] Height 62 Date of 1965 Weight 121 Accession Number [id number] BSA 1.54 m^2 Room Number 308 BMI 22.13 kg/m^2 Referring IVIS SEQUEIRA MD Interpreting KRIS HANSON Physician Physician Meters Superintendent LORRAINE Davies Procedure Type of Study: Cerebral: [...] 10.0 K/ L 03/14/2025 11:31 AM EDT [facility] RBC 4.98 3.93 - 5.22 M/ L 03/14/2025 11:31 AM EDT [facility] Hemoglobin 15.8(H) 11.2 - 15.7 GM/DL 03/14/2025 11:31 AM EDT [facility] Hematocrit 46.1(H) 34.1 - 44.9 % 03/14/2025 11:31 AM EDT [facility] MCV 93 79 - 95 fL 03/14/2025 11:31 AM EDT [facility] MCH 31.7 25.6 - 32.2 pg 03/14/2025 11:31 AM EDT [facility] MCHC 34.3 32.2 - 35.5 GM/DL 03/14/2025 11:31 AM EDT [facility] RDW 12.3 11.7 - 14.4 % 03/14/2025 11:31 AM EDT [facility] Platelets 218 140 - 375 K/CU MM 03/14/2025 11:31 AM EDT [facility] MPV 9.3(L) 9.4 - 12.3 fL 03/14/2025 11:31 AM EDT [facility] % Neutros 68 34 - 71 % 03/14/2025 11:31 AM EDT [facility] % Lymphs 25 19 - 52 % 03/14/2025 11:31 AM EDT [facility] % Monos 6 5 - 13 % 03/14/2025 11:31 AM EDT [facility] % Eos 1 1 - 6 % 03/14/2025 11:31 AM EDT [facility] % Baso 1 0 - 1 % 03/14/2025 11:31 AM EDT [facility] NRBC Absolute <0.01 0 - 0.012 K/ul 03/14/2025 11:31 AM EDT [facility] # Neutros 5.58 1.56 - 6.13 K/ L 03/14/2025 11:31 AM EDT [facility] # Lymphs 2.04 1.18 - 3.74 K/ L 03/14/2025 11:31 AM EDT [facility] # Monos 0.52 0.24 - 0.86 K/ L 03/14/2025 11:31 AM EDT [facility] # Eos 0.04 0.04 - 0.36 K/ L 03/14/2025 11:31 AM EDT [facility] # Baso 0.05 0.01 - 0.08 K/ L 03/14/2025 11:31 AM EDT [facility] Immature Granulocytes-Re lative 0.40 0.01 - 0.43 % 03/14/2025 11:31 AM EDT [facility] # IG 0.03 0.00 - 0.03 K/uL 03/14/2025 11:31 AM EDT [facility] Blood Venipuncture / Unknown 03/14/2025 10:49 AM EDT 03/14/2025 11:27 AM EDT Narrative [facility] - 03/14/2025 11:31 AM EDT When [...] MD LAB BLOOD ORDERABLES Final Resul t [facility] [address] [place] [id number] [phone] * (ABNORMAL) Comprehensive metabolic panel (03/14/2025 10:49 AM EDT) Sodium 144 136 - 145 meq/L 03/14/2025 11:52 AM EDT [facility] Potassium 3.3(L) 3.4 - 5.1 meq/L 03/14/2025 11:[address] [facility] Chloride 106 98 - 112 meq/L 03/14/2025 11:[address] [facility] CO2 21(L) 22 - 29 meq/L 03/14/2025 11:[address] [facility] Calcium 9.8 8.4 - 10.2 mg/dL 03/14/2025 11:[address] [facility] Glucose 114 82 - 115 mg/dL 03/14/2025 11:[address] [facility] BUN 21.3(H) 9.8 - 20.1 mg/dL 03/14/2025 11:[address] [facility] Creatinine 0.83 0.57 - 1.11 mg/dL 03/14/2025 11:[address] [facility] BUN/Creatinine 26(H) 8 - 20 03/14/2025 11:[address] [facility] eGFR (mL/min/1.73m2) 80 >=60 mL/min/1. 73m2 03/14/2025 11:[address] [facility] Albumin 3.4(L) 3.5 - 5.0 g/dL 03/14/2025 11:[address] [facility] Alkaline Phosphatase 99 40 - 150 U/L 03/14/2025 11:[address] [facility] ALT 24 <=34 U/L 03/14/2025 11:[address] [facility] Comment: ALT2 reagent used for testing does not contain P5P supplementation and therefore may miss ALT elevations in patients with B6 deficiency. This population may be as high as 10% in the [place], with risk factors including malabsorption, drug interactions, and alcoholic hepatitis. AST 34 11 - 34 U/L 03/14/2025 11:[address] [facility] Comment: AST2 reagent used for testing does not contain P5P supplementation and therefore may miss AST elevations in patients with B6 deficiency. This population may be as high as 10% in the [place], with risk factors including malabsorption, drug interactions, and alcoholic hepatitis. Total Bilirubin 0.6 0.2 - 1.2 mg/dL 03/14/2025 11:52 AM EDT [facility] Protein, Total 6.7 6.4 - 8.3 g/dL 03/14/2025 11:52 AM EDT [facility] Globulin 3.3 2.5 - 4.1 g/dL 03/14/2025 11:52 AM EDT [facility] Anion Gap 20(H) 4 - 12 03/14/2025 11:52 AM EDT [facility] A/G Ratio 1.0 0.7 - 1.9 03/14/2025 11:52 AM EDT [facility] Osmolality Calc 290.8 mOsm/kg 11:52 AM EDT [facility] Blood Venipuncture / Unknown 03/14/2025 10:49 AM EDT 03/14/2025 11:27 AM EDT Ivis Sequeira MD LAB BLOOD ORDERABLES Final Resul t [facility] [address] [phone] from Last 3 Months Insurance [facility] MCR ADV DUAL COMPLETE MEDICAID OF [place] Advance Directives For more information, please contact: [phone] * Full Code (Latest Code Status on File) Date Activated Date Inactivated Comments 03/14/2025 1:04 AM 03/18/2025 3:17 PM Care Teams Laundromat Worker Relationship Specialty Start Date End Date Vasu Gutierres MD [address] [place] [address] PCP - General Family Medicine 03/18/25 Sweetie Hewitt PA [facility] [address] [place] [address] Physician Charging Operator Physician Charging Operator 03/18/25
--- OUTSIDE RECORDS SUMMARY | 2025-04-26 08:19 | XMS_ITS | Encounter Summary ---
Author Organization [employer] ([place], [place], [place], [place]) Address [address] [place] [address] Care Team Providers Care Estate Planning Paralegal Name Role Phone [facility] Lidia, [facility]-A-Doc Primary Care Provider Encounter Details Date Type Department Care Team (Latest Contact Info) Description 03/14/2025 Travel Social History Tobacco Use Types Packs/Day [...] Never 03/14/2025 How often does anyone, tin errol family and friends, threaten you with harm? [...] Do you speak a language other than [place]ian at [facility]? No 03/14/2025 Do you want [...] Description 05/24/2025 9:00 AM EST Office Visit [facility] Cardiology [address] [place] [address] Alee Gan MD [address] [facility] [address] [place] [id number] documented as of this encounter Visit Diagnoses Not on filedocumented in this encounter Care Teams Estate Planning Paralegal Relationship Specialty Start Date End Date [facility] Connection, Find[facility]A-Doc [facility] Connection Find-a-Doc [place] [id number] PCP - General 03/14/25 03/17/25 documented as of this encounter
== END 2025-04-26 23:59 | disposition home or self-care (01) ==
LOC: RAD 08:04
PROVIDERS: PCP Family Medicine; Visit Provider Student in an Organized Health Care Education/Training Program
DX: E04.1 Nontoxic single thyroid nodule (principal); E03.9 Hypothyroidism, unspecified
CPT/HCPCS: 10005

== ENCOUNTER 2025-05-03 14:16 | Outpatient (CLI) | payer MEDICARE, SELFPAY ==
[2025-05-03 14:28] VITALS: BP 136/98; PULSE 89; RESP 16; TEMP 36.4; O2SAT 98
[2025-05-03] MEDS: PROMETHAZINE HCL 25MG/ML 1ML VIAL 50 MG (14:28)
[2025-05-03] MEDS: BUTORPHANOL TARTRATE 2 MG/ML VIAL IM (14:28)
[2025-05-03] MEDS: BUTORPHANOL TARTRATE 1 MG/ML VIAL IM (14:28)
== END 2025-05-03 23:59 | disposition home or self-care (01) ==
LOC: INF 14:19
PROVIDERS: PCP Family Medicine; Visit Provider Family Medicine
DX: G43.C1 Periodic headache syndromes in child or adult, intractable (principal)
CPT/HCPCS: 96372; 96374; J0595; J2550

== ENCOUNTER 2025-06-20 15:04 | Outpatient (CLI) | payer MEDICARE, SELFPAY ==
--- OUTSIDE RECORDS SUMMARY | 2025-06-20 15:08 | XMS_ITS | Clinical Summary ---
Author Organization [facility] Address [address] [place] [address] Phone Care Team Providers Care Floor Scraper Name Role Phone Gilmar COFFEY, Luigi Huitron [...] right tibia, subsequent encounter Cellulitis, foot, right [id number] (SNOMED CT) 09/08 Active 09/08 Jaylene Mays Cellulitis of lower limb Infection, local skin/subcuta neous tissue 251783213 (SNOMED CT) 09/08 Active 09/08 Jaylene Davon Localized infection of skin AND/OR subcutaneous tissue CKD III(document a or b) 282704674 (SNOMED CT) 09/08 Active 09/08 Jaylene Davon Chronic kidney disease stage 3A Acute renal failure with tubular necrosis [id number] 101 (SNOMED CT) 09/08 Active 09/08 Jaylene Davon Acute renal failure due to tubular necrosis Elevation of levels of liver transaminase levels 523259028 (SNOMED CT) 09/08 Active 09/08 Jaylene Davon Elevated level of transaminase and lactic acid dehydrogenase Alkaline phosphatase, elevated 875318593 (SNOMED CT) 09/08 Active 09/08 Jaylene Mays Alkaline phosphatase above reference range Anemia due to acute blood loss 013321939 ([facility] CT) 09/08 Active 09/08 Jaylene Mays Acute posthemorrhagic anemia Anemia in CKD D63.1 (ICD-10-CM) 09/08 Active 09/08 Jaylene Mays Anemia in chronic kidney disease DM Type II E11.9 (ICD-10-CM) 09/08 Active 09/08 Jaylene Mays Type 2 diabetes mellitus without complications Benign Essential Hypertension 23824597 ([facility]) 09/08 Active 09/08 Jaylene Mays Benign hypertension Medications Medication Instructions Start Date Stop Date Generic Name [facility] Provider [facility]am [facility] Aztreonam 2G IV [id number] VILLISCA 09/15 aztreonam recon binta [facility] RN Cubicin RF (daptomycin) recon binta Cubicin 650mg IV [id number] VILLISCA 09/15 daptomycin [facility] RN NIFEDIPINE ER 30 MG [id number] Take 1 tablet by mouth once a day nifedipine 18695406756 Janay Manrique LISINOPRIL 40 MG TABS Take 1 tablet by mouth once a day lisinopril 05343702461 Janay Manrique QULIPTA 60 MG TABS Take 1 tablet by mouth atogepant 14870807831 Janay Manrique ACETAMINOPHEN 500 MG TABS Take 1 tablet by mouth every six hours as needed acetaminophen 89352929605 Janay Manrique insulin detemir (LEVEMIR) 100 UNIT/ML injection Inject 5 unit subcutaneously every morning as directed LEVEMIR Janay Manrique ACETAMINOPHEN 325 MG TABS Take 2 tablet by mouth every six hours as needed acetaminophen 86526675701 Janay Manrique HYDROXYZINE PAMOATE 25 MG CAPS Take 1 capsule by mouth three times a day as needed hydroxyzine pamoate 35840441073 Janay Manrique LEVETIRACETAM 500 MG TABS Take 1 tablet by mouth every twelve hours levetiracetam 11892498739 Janay Manrique ASPIRIN 325 MG TABS Take 1 tablet by mouth once a day aspirin 46810960486 Janay Manrique PEG 3350 17 GM PACK Take 17 gram by mouth once a day polyethylene glycol 3350 87443934595 Janay Manrique CYCLOBENZAPRINE HCL 5 MG TABS Take 1 tablet by mouth three times a day as needed cyclobenzaprine 38989064678 Janay Manrique ENOXAPARIN SODIUM 40 MG/0.4ML SOSY Inject 0.4 ml subcutaneously once a day as directed 11/02 enoxaparin 03388484102 Janay Manrique ATORVASTATIN CALCIUM 80 MG TABS Take 1 tablet by mouth every night atorvastatin 79636358618 Janay Manrique PROCHLORPERAZINE EDISYLATE 10 MG/2ML SOLN 2 ml every eight hours as needed prochlorperazine edisylate 67645674659 Janay Manrique INSULIN LISPRO 100 UNIT/ML SOLN Inject 2-7 unit subcutaneously four times a day as directed insulin lispro 69586216306 Janay Manrique SENNOSIDES-DOCUSAT E SODIUM 8.6-50 MG TABS Take 2 tablet by mouth twice a day as needed sennosides-docusa te sodium 64753145802 Janay Manrique PROMETHAZINE HCL 25 MG TABS Take 1 tablet by mouth every six hours as needed promethazine 89328824611 Janay Manrique Valbenazine Tosylate 80 MG capsule Take 1 capsule by mouth once a day Valbenazine Tosylate 80 MG capsule Janay Manrique TRAZODONE HCL 150 MG TABS Take 3 tablet by mouth every night trazodone 43277278636 Janay Manrique DOCUSATE SODIUM 100 MG CAPS Take 1 capsule by mouth twice a day 09/18 docusate sodium 71796836570 Janay Manrique OMEPRAZOLE 40 MG CPDR Take 1 capsule by mouth once a day omeprazole 16647828775 Janay Burton CETIRIZINE HCL 10 MG TABS Take 1 tablet by mouth once a day cetirizine 56843089702 Janay Manrique MELATONIN 5 MG TABS Take 1 tablet by mouth every night as needed melatonin 19454572505 Halcomfort Burton LIDOCAINE PAIN RELIEF MAX ST 4 % PTCH Place 1 patch once a day as directed lidocaine 64455529475 Janay Manrique DESVENLAFAXINE SUCCINATE ER 100 MG [id number] Take 2 tablet by mouth once a day desvenlafaxine succinate 22794206555 Janay Manrique DOXYCYCLINE HYCLATE 100 MG CAPS Take 1 capsule by mouth twice a day 09/28 doxycycline hyclate 30245525771 Janay Burton ALENDRONATE SODIUM 70 MG TABS Take 1 tablet by mouth once a week alendronate 32861958973 Janay Manrique Cubicin RF (daptomycin) recon soln Cubicin 650mg IV [id number] [facility]ALTH 09/15 daptomycin [facility] RN aztreonam recon solmeseret Aztreonam 2G IV [id number] [facility]ALTH 09/15 aztreonam recon soln [facility] RN Valbenazine Tosylate 80 MG capsule Take 1 capsule by mouth Daily. 09/15 Valbenazine Tosylate 80 MG capsule QIE qieuser TRAZODONE HCL 150 MG TABS Take 3 tablets by mouth Every Night. 09/15 trazodone 12069862529 QIE qieuser SENNOSIDES-DOCUSAT E SODIUM 8.6-50 MG TABS Take 2 tablets by mouth 2 (Two) Times a Day As Needed for Constipation. sennosides-docusa te sodium 79017343067 QIE qieuser PROMETHAZINE HCL 25 MG TABS Take 1 tablet by mouth Every 6 (Six) Hours As Needed for Nausea or Vomiting. 09/15 promethazine 14851814491 QIE qieuser PROCHLORPERAZINE EDISYLATE 10 MG/2ML SOLN Infuse 2 mL into a venous catheter Every 8 (Eight) Hours As Needed (headache/migrai ne (give with iv benadryl)). 09/15 prochlorperazine edisylate 22607104241 QIE qieuser PEG 3350 17 GM PACK Take 17 g by mouth Daily. 09/15 polyethylene glycol 3350 49770565394 QIE qieuser ONETOUCH ULTRA STRP null blood sugar diagnostic 89002301528 QIE qieuser OMEPRAZOLE 40 MG CPDR Take 1 capsule by mouth Daily. 09/15 omeprazole 83013250077 QIE qieuser NIFEDIPINE ER 30 MG [id number] Take 1 tablet by mouth Daily. 09/15 nifedipine 54882780648 QIE qieuser NICOTINE STEP 1 21 MG/24HR PT24 null nicotine 83754745137 QIE qieuser MELATONIN 5 MG TABS Take 1 tablet by mouth At Night As Needed (insomnia). 09/15 melatonin 15475721290 QIE qieuser LISINOPRIL 40 MG TABS Take 1 tablet by mouth Daily. 09/15 lisinopril 94464358059 QIE qieuser LIDOCAINE PAIN RELIEF MAX ST 4 % PTCH Place 1 patch on the skin as directed by provider Daily. Remove & Discard patch within 12 hours or as directed by 09/15 lidocaine 78671474293 QIE qieuser LEVETIRACETAM 500 MG TABS Take 1 tablet by mouth Every 12 (Twelve) Hours. 09/15 levetiracetam 07016770033 QIE qieuser ONETOUCH DELICA PLUS [id number] null lancets 65911423651 QIE qieuser INSULIN LISPRO 100 UNIT/ML SOLN Inject 2-7 Units under the skin into the appropriate area as directed 4 (Four) Times a Day Before Meals & at Bedtime. 09/15 insulin lispro 70143886775 QIE qieuser insulin detemir (LEVEMIR) 100 UNIT/ML injection Inject 5 Units under the skin into the appropriate area as directed Every Morning. 09/15 LEVEMIR QIE qieuser HYDROXYZINE PAMOATE 25 MG CAPS Take 1 capsule by mouth 3 (Three) Times a Day As Needed for Itching. 01/18 hydroxyzine pamoate 76030553705 QIE qieuser GABAPENTIN 400 MG CAPS Take 2 capsules by mouth Every 8 (Eight) Hours for 4 days. 09/08 gabapentin 34332711016 QIE qieuser ENOXAPARIN SODIUM 40 MG/0.4ML SOSY Inject 0.4 mL under the skin into the appropriate area as directed Daily for 60 days. 11/02 enoxaparin 73040100253 QIE qieuser DOXYCYCLINE HYCLATE 100 MG CAPS Take 1 capsule by mouth 2 (Two) Times a Day for 14 days. 09/28 doxycycline hyclate 16514208293 QIE qieuser DOCUSATE SODIUM 100 MG CAPS Take 1 capsule by mouth 2 (Two) Times a Day for 15 days. 09/18 docusate sodium 07061877608 QIE qieuser DESVENLAFAXINE SUCCINATE ER 100 MG [id number] Take 2 tablets by mouth Daily. 09/15 desvenlafaxine succinate 25321215326 QIE qieuser CYCLOBENZAPRINE HCL 5 MG TABS Take 1 tablet by mouth 3 (Three) Times a Day As Needed for Muscle Spasms. 01/18 cyclobenzaprine 54377990928 QIE qieuser CETIRIZINE HCL 10 MG TABS Take 1 tablet by mouth Daily. 09/15 cetirizine 44260159961 QIE qieuser ANTACID CALCIUM 500 MG CHEW null calcium carbonate 16521992336 QIE qieuser BD PEN NEEDLE MICRO ULTRAFINE 32G X 6 MM null pen needle, diabetic 58678391819 QIE qieuser ATORVASTATIN CALCIUM 80 MG TABS Take 1 tablet by mouth Every Night. 09/15 atorvastatin 58282981375 QIE qieuser QULIPTA 60 MG TABS Take 1 tablet by mouth. 09/15 atogepant 99648337134 QIE qieuser ASPIRIN 325 MG TABS Take 1 tablet by mouth Daily. 09/15 aspirin 25163975921 QIE qieuser ALENDRONATE SODIUM 70 MG TABS Take 1 tablet by mouth Every 7 (Seven) Days. 09/15 alendronate 66174677512 QIE qieuser ACETAMINOPHEN 500 MG TABS Take 1 tablet by mouth Every 6 (Six) Hours As Needed for Mild Pain. 09/15 acetaminophen 49971354211 QIE qieuser ACETAMINOPHEN 325 MG TABS Take 2 tablets by mouth Every 6 (Six) Hours As Needed for Mild Pain. 09/15 acetaminophen 79881278884 QIE qieuser Medications Administered No information available. [...] Procedures Code Procedure Name Date Entry Date [id number] CBC with Differential 2023 CPT-51529 C- reactive protein CPT-sl STAT Labs [id number] CBC with Differential 2023 CPT-06889 C- reactive protein [id number], [id number] CPK CPT-17171 Sedimentation Rate (ESR) 202 10/20/22 CPT-98612 CMP Vital Signs Date Name Value Unit [...]
--- OUTSIDE RECORDS SUMMARY | 2025-06-20 15:08 | XMS_ITS | Referral Summary ---
Author Organization [employer] ([place], [place], [place], [place], [place]) Address [address] [place] [address] Care Team Providers Care Fire Truck Driver Name Role Phone Vasu Gutierres MD Primary Care Provider [phone] Sweetie Hewitt Unavailable [phone] Allergies Active Allergy Reactions Criticality Noted [...] Nausea And Vomiting 03/12/2023 Per pt report [place] (Prunus Persica) Other (See Comments) Low 05/15/2017 [...] your living situation today? I have a [facility] place to live 03/14/2025 Think about [...] Do you speak a language other than Emirati at [facility]? No 03/14/2025 Do you want help [...] 03/14/2025 11:19 AM EDT Plan of Treatment Not on file Procedures Procedure Name Priority Date/Time Associated Diagnosis Comments LIPID PANEL STAT 03/15/2025 6:13 AM EDT from Last 3 Months or Most Recently Relevant to Health Maintenance Results * Lipid panel (03/15/2025 6:13 AM EDT) Triglycerides 100 <=149 mg/dL 03/15/2025 7:22 AM EDT [facility] Comment: Normal: < 150 mg/dL Borderline High: 150 to 199 mg/dL High: 200 to 499 mg/dL Very High: >/= 500 mg/dL Cholesterol 111 100 - 199 mg/dL 03/15/2025 7:22 AM EDT [facility] Comment: Child: Desirable: < 170 mg/dL Borderline: 170 to 199 mg/dL High: >/= 200 mg/dL Adult: Desirable: < 200 mg/dL Borderline: 200 to 239 mg/dL High: >/= 240 mg/dL HDL Cholesterol 43 See Comment mg/dL 03/15/2025 7:22 AM EDT [facility] Comment: Major risk factor for heart disease: < 40 mg/dL Negative risk factor for heart disease: >/= 60 mg/dL LDL Cholesterol, Calculated 48 0 - 100 mg/dL 03/15/2025 7:22 AM EDT [facility] Comment: Unable to calculate Optimal: < 100 mg/dL Near or above optimal: 100 to 129 mg/dL Borderline high: 130 to 159 mg/dL High: 160 to 189 mg/dL Very high: >/= 190 mg/dL Based on AHA/NCEP Guidelines LDl/HDL Ratio 1 0 - 4 03/15/2025 7:22 AM EDT [facility] Comment:Unable to calculate. Cholesterol/HDL ratio 2.6 0.0 - 5.0 mg/dL 03/15/2025 7:22 AM EDT [facility] VLDL Cholesterol 20 5 - 40 mg/dL 03/15/2025 7:22 AM EDT [facility] Comment:Unable to calculate Blood Venipuncture / Unknown 03/15/2025 6:13 AM EDT 03/15/2025 6:28 AM EDT Narrative [facility] - 03/15/2025 7:22 AM EDT Specimen slightly hemolyzed us Ivis Ruiz MD LAB BLOOD ORDERABLES Final Resul t [facility] [address] [phone] from Last 3 Months or Most Recently Relevant to Health Maintenance Insurance [facility] ADV DUAL COMPLETE Advance Directives For more information, please contact: [phone] * Full Code (Latest Code Status on File) Date Activated Date Inactivated Comments 03/14/2025 1:04 AM 03/18/2025 3:17 PM Care Teams Fire Truck Driver Relationship Specialty Start Date End Date Vasu Gutierres MD [address] [place] [phone] PCP - General Family Medicine 03/18/25 Sweetie Hewitt PA [facility] [address] [place] [address] Physician Linen Room Houseperson Physician Linen Room Houseperson 03/18/25
--- OUTSIDE RECORDS SUMMARY | 2025-06-20 15:08 | XMS_ITS | Encounter Summary ---
Author Organization [facility] Address [address] [place] [address] Care Team Providers Care Retail Consultant Name Role Phone Vasu Gutierres MD Primary Care Provider Encounter Details Date Type Department Care Team (Late st Contact Info) Description 02/11/2024 Telephone [facility] [address] [facility] [address] [place] [address] Danis Chaidez, PT [address] [facility] [address] [place], [place] [id number] Social History Tobacco Use Types Packs/Day Years Used Date Smoking Tobacco: Former Cigarettes Q uit: 07/17/2023 Passive Smoke Exposure: Current Smokeless Tobacco: Never Alcohol Use Standard Drinks/Week Comments Never 0 (1 standard drink = 0.6 oz pur e alcohol) [facility] Utilities Answer Date Recorded In the past 12 months has [employer], gas, oil, or water [employer] threatened to shut off services in [...] and heating? Not hard at all 08/25/2023 [facility] Occupat ional Health - Occupational Stress [...] Description 10/07/2025 11:00 AM EDT Office Visit [facility] [address] [place] [address] Cheo Fu MD [address] [facility] [address] [place] [address] documented as of this encounter Visit Diagnoses Not on filedocumented in this encounter Additional Health Concerns Infection Onset Date Last Indicated Resolved Time COVID (rule out) 09/02/2024 09/02/2024 09/02/2024 10:52 AM EST Influenza 09/02/2024 09/02/2024 10/02/2024 9:08 PM EDT documented as of this encounter Care Teams Retail Consultant Relationship Specialty Start Date End Date Vasu Gutierres MD [address] [facility] [address] [place] [address] PCP - General Family Medicine 03/05/23 documented as of this encounter
--- OUTSIDE RECORDS SUMMARY | 2025-06-20 15:08 | XMS_ITS | Clinical Summary ---
Author Organization [employer] ([place], [place], [place], [place], [place]) Address [address] [place] [address] Care Team Providers Care Mapping Analyst Name Role Phone Vasu Gutierres MD Primary Care Provider [phone] Sweetie Hewitt Unavailable [phone] Allergies Active Allergy Reactions Criticality Noted [...] Nausea And Vomiting 03/12/2023 Per pt report [place] (Prunus Persica) Other (See Comments) Low 05/15/2017 [...] your living situation today? I have a [facility] place to live 03/14/2025 Think about [...] Do you speak a language other than Israeli at [facility]? No 03/14/2025 Do you [...] 03/14/2025 11:19 AM EDT Plan of Treatment Health Maintenance Due Date Last Done Comments [...] Tdap) 07/10/2027 07/10/2017 Lipid Panel 03/15/2030 03/15/2025, 12/19, 06/09/2023, Additional history exists Respiratory Syncytial Virus (RSV) Adult or (1 - 1-dose 75+ series) 2038 Procedures Procedure Name Priority Date/Time Associated Diagnosis Comments LIPID PANEL STAT 03/15/2025 6:13 AM EDT from Last 3 Months or Most Recently Relevant to Health Maintenance Results * Lipid panel (03/15/2025 6:13 AM EDT) Triglycerides 100 <=149 mg/dL 03/15/2025 7:22 AM EDT [facility] Comment: Normal: < 150 mg/dL Borderline High: 150 to 199 mg/dL High: 200 to 499 mg/dL Very High: >/= 500 mg/dL Cholesterol 111 100 - 199 mg/dL 03/15/2025 7:22 AM EDT [facility] Comment: Child: Desirable: < 170 mg/dL Borderline: 170 to 199 mg/dL High: >/= 200 mg/dL Adult: Desirable: < 200 mg/dL Borderline: 200 to 239 mg/dL High: >/= 240 mg/dL HDL Cholesterol 43 See Comment mg/dL 03/15/2025 7:22 AM EDT [facility] Comment: Major risk factor for heart disease: < 40 mg/dL Negative risk factor for heart disease: >/= 60 mg/dL LDL Cholesterol, Calculated 48 0 - 100 mg/dL 03/15/2025 7:22 AM EDT [facility] Comment: Unable to calculate Optimal: < 100 mg/dL Near or above optimal: 100 to 129 mg/dL Borderline high: 130 to 159 mg/dL High: 160 to 189 mg/dL Very high: >/= 190 mg/dL Based on AHA/NCEP Guidelines LDl/HDL Ratio 1 0 - 4 03/15/2025 7:22 AM EDT [facility] Comment:Unable to calculate. Cholesterol/HDL ratio 2.6 0.0 - 5.0 mg/dL 03/15/2025 7:22 AM EDT [facility] VLDL Cholesterol 20 5 - 40 mg/dL 03/15/2025 7:22 AM EDT [facility] Comment:Unable to calculate Blood Venipuncture / Unknown 03/15/2025 6:13 AM EDT 03/15/2025 6:28 AM EDT Narrative [facility] - 03/15/2025 7:22 AM EDT Specimen slightly hemolyzed us Ivis Ruiz MD LAB BLOOD ORDERABLES Final Resul t [facility] [address] [place] [id number], [facility] [phone] from Last 3 Months or Most Recently Relevant to Health Maintenance Insurance [facility] MCR ADV DUAL COMPLETE Member Subscriber Plan / Payer (Ef fective 2024-Present) Name:Renita Citlali Relation to Subscriber:Self Name:Citlali Maravilla Payer ID:[id number] (NAIC) Group ID:[id number] Type:Not on file Address: [address] [address] Advance Directives For more information, please contact: [phone] * Full Code (Latest Code Status on File) Date Activated Date Inactivated Comments 03/14/2025 1:04 AM 03/18/2025 3:17 PM Care Teams Mapping Analyst Relationship Specialty Start Date End Date Vasu Gutierres MD [address] [place] [phone] PCP - General Family Medicine 03/18/25 Sweetie Hewitt PA [facility] [address] [place] [phone] Physician Cement Mason Helper Physician Cement Mason Helper 03/18/25
--- OUTSIDE RECORDS SUMMARY | 2025-06-20 15:09 | XMS_ITS | Encounter Summary ---
Author Organization Healthcare Address [address] [place] [address] Care Team Providers Care Senior Management Consultant Name Role Phone Pcp, No Primary Care Provider UnavailVasu Cole MD Primary Care Provider [phone]- [phone] Reason for Referral * Consultation (Routine) - Closed Specialty Diagnoses / Procedures Referred By Darline noguera Referred To Contact Neurology Diagnoses Chronic intractable headache, unspecified headache type Tardive dyskinesia History of drug abuse History of stroke Major depression in remission (CMS/[facility]) Mira Dolan MD [address] [place] [address] Phone: tel: fax: Luis Armando Weeks MD [address] [facility] [address] [place] [address] Phone: tel: fax: Referral ID Status Reason Start Date Expiration Date V isits Requested Visits Authorized [id number] Closed Specialty Services Required 03/05/2022 09/04/2023 1 1 Encounter Details Date Type Department Care Team (Late st Contact Info) Description 03/05/2022 Community [facility] [address] [place] [address] Mira Dolan MD [address] [place] [address] [place] [address] Chronic intractable headache, unspecified headache [...] Care Team (Late st Contact Info) Description 06/29/2025 8:00 AM EST Office Visit [place] [facility] [address] [place] [address] Sweetie Hewitt PA [address] [place] [address] Scheduled Referrals Name Type Priority [...] remission documented in this encounter Care Teams Senior Management Consultant Relationship Specialty Start Date End Date Pcp, Radha [address] [place] [address] PCP - General Family Medicine 06/04/23 05/18/24 Vasu Gutierres MD [address] [place] [address] PCP - General 05/19/24 documented as of this encounter
--- OUTSIDE RECORDS SUMMARY | 2025-06-20 15:09 | XMS_ITS | Clinical Summary ---
Author Organization [facility] Address [address] [place] [address] Care Team Providers Care Sprinkler Irrigation Equipment Mechanic Name Role Phone Vasu Gutierres MD [...] U/F 32G X 6 MM [facility] [place] Active Lancets (OneTouch Delica Plus [id number]) [facility] [place] Active nicotine (NICODERM CQ) 21 MG/24HR [...] drink = 0.6 oz pur e alcohol) [facility] Utilities Answer Date Recorded In the past 12 months has [employer], gas, oil, or water [employer] threatened to shut off services in your [...] and heating? Not hard at all 08/25/2023 [facility] - Occupational Stress [...] [facility] [address] [place] [address] Cheo Fu MD [address] [address] Health Maintenance Due Date Last Done Comments [...] 07/10/2027 017 Medical Devices Implanted Type Area Program Professional Device Identifier Shelf Expiration Date Model / Serial / Lot Scrw Yunior Lp Ss 3.5x32mm - [id number] Implanted:Qty: 1 on 07/22/2023 by Cheo Fu MD at [facility] Implant Right: Ankle ARTHREX [id number] / / Plt Hk Medl Ss 5h - [id number] Implanted:Qty: 1 on 07/22/2023 by Cheo Fu MD at [facility] Implant Right: Ankle ARTHREX [id number] / / Scrw Yunior Lp Ss 3.5x26mm - [id number] Implanted:Qty: 1 on 07/22/2023 by Cheo Fu MD at [facility] Implant Right: Ankle ARTHREX [id number] / / Scrw Josiah Lp Thrd/Shrt Ss 4x42mm - [id number] Implanted:Qty: 1 on 07/22/2023 by Cheo Fu MD at [facility] Implant Right: Ankle ARTHREX [id number] / / Plt Dist Ankl Lk 6h 104mm Rt - [id number] Implanted:Qty: 1 on 07/22/2023 by Cheo Fu MD at [facility] Implant Right: Ankle ARTHREX [id number] / / Scrw Yunior Lp Ss 3.5x50mm - [id number] Implanted:Qty: 1 on 07/22/2023 by Cheo Fu MD at [facility] Implant Right: Ankle ARTHREX [id number] / / Scrw Yunior Lp Ss 3.5x42mm - [id number] Implanted:Qty: 1 on 07/22/2023 by Cheo Fu MD at [facility] Implant Right: Ankle ARTHREX [id number] / / Scrw Compr Kreulock Lk Ful/Thrd Ss 2.7x12mm - [id number] Implanted:Qty: 1 on 07/22/2023 by Cheo Fu MD at [facility] Implant Right: Ankle ARTHREX [id number] / / Scrw Compr Kreulock Lk Ful/Thrd Ss 2.7x16mm - [id number] Implanted:Qty: 3 on 07/22/2023 by Cheo Fu MD at [facility] Implant Right: Ankle ARTHREX [id number] / / Scrw Yunior Lp Ss 3.5x12mm - [id number] Implanted:Qty: 3 on 07/22/2023 by Cheo Fu MD at [facility] Implant Right: Ankle ARTHREX [id number] / / Gw Troc Tp 1.52v497uf - [id number] Implanted:Qty: 2 on 07/22/2023 by Cheo Fu MD at [facility] Implant Right: Ankle ARTHREX [id number] / / Explanted Type Area Program Professional Device Identifier Shelf Expiration Date Model / Serial / Lot Scrw Yunior Lp Ss 2.7x16mm - [id number] Explanted:Qty: 1 on 07/22/2023 by Cheo Fu MD at [facility] Implant Right: Ankle ARTHREX [id number] / / Scrw Yunior Lp Ss 2.7x18mm - [id number] Explanted:Qty: 1 on 07/22/2023 by Cheo Fu MD at [facility] Implant Right: Ankle ARTHREX [id number] / / Procedures Procedure Name Priority Date/Time [...] Hemoglobin A1c (12/30/2023 11:38 AM EDT) Pathologist [facility] Hemoglobin A1C 7.90(H) 4.80 - 5.60 % 12/30/2023 2:09 PM EDT [facility] Blood Venipuncture / Unknown 12/30/2023 11:38 AM EDT 12/30/2023 11:39 AM EDT Narrative [facility] - 12/30/2023 2:09 PM EDT Hemoglobin A1C Ranges: Increased Risk for Diabetes 5.7% to 6.4% Diabetes >= 6.5% Diabetic Goal < 7.0% Vasu Gutierres MD LAB BLOOD ORDERABLES F inal Result [facility]
[address] [place] [address], * (ABNORMAL) Lipid Panel (12/30/2023 11:38 AM EDT) Total Cholesterol 145 0 - 200 mg/dL 12/30/2023 7:13 PM EDT [facility] Triglycerides 86 0 - 150 mg/dL 12/30/2023 7:13 PM EDT [facility] HDL Cholesterol 62(H) 40 - 60 mg/dL 12/30/2023 7:13 PM EDT [facility] LDL Cholesterol 67 0 - 100 mg/dL 12/30/2023 7:13 PM EDT [facility] VLDL Cholesterol 16 5 - 40 mg/dL 12/30/2023 7:13 PM EDT [facility] LDL/HDL Ratio 1.06 12/30/2023 7:13 PM EDT [facility] Blood Venipuncture / Unknown 12/30/2023 11:38 AM EDT 12/30/2023 11:39 AM EDT Narrative [facility] - 12/30/2023 7:13 PM EDT [...] MD LAB BLOOD ORDERABLES F inal Result [facility]
[address] [place] [address], [place] [phone] from Last 3 Months or Most Recently Relevant to Health Maintenance Insurance [facility] MEDICARE ADVANTAGE SNP PPO Advance Directives [...] or is breathing): Full Support Care Teams Sprinkler Irrigation Equipment Mechanic Relationship Specialty Start Date End Date Vasu Gutierres MD [address] [place] [id number] PCP - General Family Medicine 03/05/23
--- OUTSIDE RECORDS SUMMARY | 2025-06-20 15:09 | XMS_ITS | Clinical Summary ---
Author Organization Healthcare Address [address] [place] [address] Care Team Providers Care Kindergarten Teacher Name Role Phone Vasu Gutierres MD Primary Care Provider [phone] Allergies Active Allergy Reactions Criticality Noted Date [...] (one) time each day. Active Continuous Glucose Community Youth Secretary (Zing SystemsStyle John 14 Day Downs) device 3 Active Continuous Glucose Sensor (FreeStyle John 2 Sensor) [facility] [place] DIRECTED (CHANGE EVERY [...] mouth 3 (three) times a day. Active [employer] State UniversityTouch Ultra Test test strip USE TO TEST 4 TIMES DAILY DIRECTED. Active hydrOXYzine pamoate (Vistaril) 25 MG capsule 4 Active Levemir FlexPen 100 UNIT/ML injection pen 4 Active BD Pen Needle Micro U/F 32G X 6 MM misc 2 (two) times a day. as directed 4 Active Lancets (OneTouch Delica Plus [id number]) misc 4 (four) times a day. 4 [...] Department Care Team Description 04/12/[address] [facility] [address] [place] [address] Jonna Olivo RN 03/28/[address] [facility] [address] [place] [address] Michelle Monroe, PharmD Vyepti rescheduling from Last 3 Months Immunizations Immunization Administration [...] Visit [place] [facility] [address] [place] [address] Sweetie Hewitt, MECHE [address] [place] [address] Health Maintenance Due Date Last [...] of 2 - PCV) 10/25/2020 10/26/2019, 04/18/2014 [id number] Vaccine (3 - season) 2025 05/26/2021, 10/21/2020 [...] patient's age to complete this topic Insurance [facility] MEDICARE Care Teams Kindergarten Teacher Relationship Specialty Start Date End Date Vasu Gutierres MD [address] [place] [address] PCP - General 05/19/24
[2025-06-20 15:34] LABS: Hematocrit 40.7 % (37.0-47.0); Hemoglobin 13.3 g/dL (12.2-16.2); Immature Granulocytes % 0.3 %; Mean Corpuscular HGB Conc 32.7 g/dL (31.8-35.4); Mean Corpuscular Hemoglobin 31.1 pg (27.0-31.2); Mean Corpuscular Volume 95.1 fl (81-99); Nucleated Red Blood Cells % 0 %; Platelet Count 289 K/mm3 (142-424); Red Blood Count 4.28 M/mm3 (4.20-5.40); Red Cell Distribution Width-SD 43.4 fL; White Blood Count 7.0 K/mm3 (4.8-10.8)
[2025-06-20 15:56] LABS: Chloride 103 mmol/L (98-107); Potassium 4.8 mmoL/L (3.5-5.1); Sodium 141 mmol/L (136-145)
[2025-06-20 15:58] LABS: Blood Urea Nitrogen 29 mg/dl (7-17); Creatinine,Serum 1.20 mg/dl (0.52-1.04); Estimated Glomerular Filt Rate 46 ml/min (>60); GFR (African American) 55 ML/MIN (>60)
[2025-06-20 15:59] LABS: Anion Gap 13.8 mEq/L (5-15); Calcium 9.9 mg/dl (8.4-10.2); Carbon Dioxide 29 mmol/L (22.0-30.0); Glucose 247 mg/dl (74-100)
[2025-06-20 17:06] LABS: Hemoglobin A1C 6.7 % (4.0-6.0)
== END 2025-06-20 23:59 | disposition home or self-care (01) ==
LOC: LAB.DROPOF 15:06
PROVIDERS: PCP Family Medicine; Visit Provider Nurse Practitioner Family
DX: E11.65 Type 2 diabetes mellitus with hyperglycemia (principal); I65.21 Occlusion and stenosis of right carotid artery; R41.82 Altered mental status, unspecified
CPT/HCPCS: 80048; 83036; 85025